=== PATIENT | male | born 1945 | race Caucasian/White ===

== ENCOUNTER 2016-07-24 20:07 | Inpatient (IN) | payer OTHER ==
[~2016-07-24] VITALS: Ht 175.3 cm; Wt 106.1 kg
--- NOTE | 2016-07-24 20:24 | NUR ---
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 NOW PT HAS L FLANK PAIN 10/10 AND ABDOMINAL DISTENTION, PT STATES "EVERYTHING FEELS SWOLLEN INSIDE". VSS. PT TO ROOM1 BY WHEELCHAIR.
--- NOTE | 2016-07-24 20:34 | NUR ---
URINE TRIO SENT
--- NOTE | 2016-07-24 20:47 | ED GI/GU/ABDOMINAL COMPLAINT ---
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 NOW PT HAS L FLANK PAIN 10/10 AND ABDOMINAL DISTENTION, PT STATES "EVERYTHING FEELS SWOLLEN INSIDE". VSS. PT TO ROOM1 BY WHEELCHAIR. Triage Nurses Notes Reviewed? yes Onset: Abrupt Duration: minute(s): (1 pm today), hour(s): Timing: single episode today Quality/Severity: moderate, sharpness, severe Location: left flank, left upper quadrant Activities at Onset: none Prior Abdominal Problems: none No Modifying Factors: none HPI: 70-year-old male comes into emergency room for further evaluation of left-sided back pain and left upper abdominal pain. Patient had lithotripsy done this afternoon. Pain is gone significantly worse. Due to the amount of pain that the patient is in his history is somewhat limited. Patient is on a 325 aspirin. Patient reports severe sharp pain. Difficulty moving at all. Denies any other associated symptoms. (ANN CONNOLLY) Vital Signs & Intake/Output Vital Signs & Intake/Output Vital Signs Date Time Temp Pulse Resp B/P Pulse O2 O2 Flow FiO2 Ox Delivery Rate 07/244 64 18 107/63 98 07/241 63 20 103/75 96 07/24 2018 96.0 63 18 117/67 94 Room Air Past History Travel History Traveled to [place] past 21 day No Medical History Any Pertinent Medical History? see below for history Cardiovascular: hypertension Renal: nephrolithiasis Pneumonia Vaccine: 06/10/10 Influenza Vaccine: 03/10/12 Surgical History Surgical History: lithotripsy , heart valve replacement, hernia repair x2 Psychosocial History Who do you live with Spouse Services at Home None What is your primary language Occitan Tobacco Use: Never used Family History Hx Contributory? No (ANN CONNOLLY) Review of Systems Review of Systems Constitutional: Reports: see HPI. EENTM: Reports: no symptoms. Respiratory: Reports: no symptoms. Cardiovascular: Reports: no symptoms. GI: Reports: see HPI. Genitourinary: Reports: see HPI. Musculoskeletal: Reports: see HPI. Skin: Reports: no symptoms. Neurological/Psychological: Reports: no symptoms. Hematologic/Endocrine: Reports: no symptoms. Immunologic/Allergic: Reports: no symptoms. All Other Systems: Reviewed and Negative (ANN CONNOLLY) Physical Exam Physical Exam General Appearance: well developed/nourished, alert, awake, anxious, moderate distress Head: atraumatic, normal appearance Eyes: Bilateral: normal appearance, EOMI. Ears, Nose, Throat, Mouth: hearing grossly normal, moist mucous membrane Neck: normal inspection, full range of motion Respiratory: normal breath sounds, no respiratory distress Cardiovascular: regular rate/rhythm Gastrointestinal: guarding, tenderness Back: CVA tenderness (L) Extremities: normal range of motion Neurologic/Psych: awake, alert, oriented x 3, normal gait Core Measures ACS in differential dx? No Severe Sepsis Present: No Septic Shock Present: No (ANN CONNOLLY) Progress Differential Diagnosis: appendicitis, biliary colic, bowel obstruction, cholecystitis, diverticulitis, pyelonephritis, ureterolithiasis, bleeding internally Diagnostic Imaging: Viewed by Me: CT Scan. Discussed w/RAD: CT Scan. Radiology Impression: SERVICE DATE: 07/24/16 EXAM TYPE: CAT - CT ABD & PELVIS W IV CONTRAST; CTA CHEST-AORTIC DISSECTION EXAMINATION: CTA CHEST AND CT ABDOMEN AND PELVIS WITHOUT CONTRAST CLINICAL INFORMATION: Severe left-sided chest and abdominal pain. History of recent lithotripsy. COMPARISON: Renal ultrasound from 07/23/2016. Abdominal and pelvic CT from 08/09/2012. TECHNIQUE: Contiguous axial thin section helical images of the chest, abdomen and pelvis were performed following the administration of oral contrast and 120 mL of intravenous Optiray 300. The data set was reformatted in the coronal and sagittal planes and reviewed on an independent workstation. DLP: 1953 mGy-cm. FINDINGS: The heart is of normal size. An aortic valvular prosthesis is present. There is no pericardial effusion. Intact midline sternal wires are present. There is neither mediastinal, hilar nor axillary lymphadenopathy. There are no chest wall masses. The great vessels are unremarkable there is no aortic dissection. Review of lung windows demonstrates that there are neither pleural effusions nor pneumothoraces. There are no consolidations. There is streaky bibasilar atelectasis. Within the right upper lobe on image 97/458, there is a 3 mm benign calcified granuloma. The liver is of normal size and attenuation without focal lesions. There is mild intrahepatic biliary ductal dilation. The common duct measures 9 mm. Patient is status post cholecystectomy. Surgical clips are identified. The spleen, pancreas, adrenal glands are unremarkable. Both kidneys are of normal size and attenuation without hydronephrosis. There is no discernible nephrolithiasis Following the administration of IV contrast, prompt symmetric nephrograms are displayed. There is a 6.9 cm cyst within the lower pole the right kidney. Within the interpole region of the left kidney, there is a 3.3 cm cyst. There is a large left renal subcapsular hematoma. There are curvilinear areas of high attenuation within this collection which could correspond to extravasation or vessels. There is extension of the hemorrhage into the retroperitoneum. There is neither mesenteric nor retroperitoneal lymphadenopathy. Normal unopacified loops of small and large bowel are identified. There is no pelvic free fluid. The urinary bladder is unremarkable. There is neither pelvic nor inguinal lymphadenopathy. Bone windows: Neither sclerotic nor lytic bone lesions are identified. There is multilevel disc height loss within the lumbar spine. IMPRESSION: Large left renal subcapsular hematoma with extension of hemorrhage into the retroperitoneum. In addition, there are curvilinear areas of high attenuation within the subcapsular region which could correspond to active extravasation or stretched vessels. Recommendation is for consultation with Interventional Radiology or Surgery to discuss proper management for this patient. The aforementioned was discussed with Dr. Armendariz at 2213 hours. DICTATED BY: CLAYTON FLORES MD DATE/TIME DICTATED:07/24/162199 BRAKE TESTER:REECE DATE/TIME TRANSCRIBED:07/24/162199 Initial ED EKG: normal intervals, normal p-waves, normal sinus rhythm, rate (65) Comments: 07/24/2016 10:21:54 PM Surgery was consult immediately. Dr. OATES suggested calling urology. I explained to him the CAT scan findings as well as the patient being borderline hypotensive. Waiting on urology call back. 07/24/2016 10:52:[address] Pavon. Patient will need to be admitted to ICU. Serial vital checks. Serial CBCs. Repeat imaging. Patient is to be bed rest only and not allowed to be walking around at all. Dr. Pavon reports that there is nothing surgical intervention-nova that he can do at this time and patient will have to be observed. Aggressive IV pain management. (ANN CONNOLLY) Plan of Care: Orders Procedure Date/time Status Admit to inpatient 07/24 2252 Active TYPE & SCREEN (NOT X-MATCH) 07/24 2152 Complete TROPONIN LEVEL 07/24 2045 Complete COMPREHENSIVE METABOLIC PANEL 07/24 2045 Complete CBC WITHOUT DIFFERENTIAL 07/24 2045 Complete EKG 07/24 2045 Active URINALYSIS 07/24 2033 Complete Laboratory Tests 07/24/162101: Anion Gap 10, Estimated GFR > 60, BUN/Creatinine Ratio 23.8, Glucose 185 H, Calcium 8.8, Total Bilirubin 0.8, AST 26, ALT 41, Alkaline Phosphatase 84, Troponin I 0.02, Total Protein 6.5, Albumin 3.8, Globulin 2.7, Albumin/Globulin Ratio 1.4, CBC w Diff NO MAN DIFF REQ, RBC 5.33, MCV 86.7, MCH 29.5, RDW 14.0, MPV 7.3 L, Gran % 52.3, Lymphocytes % 35.9, Monocytes % 7.8, Eosinophils % 3.2, Basophils % 0.8, Absolute Granulocytes 6.2, Absolute Lymphocytes 4.2 H, Absolute Monocytes 0.9 H, Absolute Eosinophils 0.4, Absolute Basophils 0.1, PUBS MCHC 34.1 07/24/162034: Urine Color YEL, Urine Clarity CLEAR, Urine pH 6.5, Ur Specific [place] 1.020, Urine Protein 30 H, Urine Ketones NEG, Urine Nitrite NEG, Urine Bilirubin NEG, Urine Urobilinogen 0.2, Ur Leukocyte Esterase NEG, Ur Microscopic SEDIMENT EXAMINED, Urine RBC 10-15 H, Urine WBC RARE, Ur Epithelial Cells RARE, Urine Mucus RARE, Urine Hemoglobin TRACE-INTACT H, Urine Glucose NEG Departure Departure Disposition: STILL A PATIENT Condition: Stable Clinical Impression Primary Impression: Traumatic perinephric hematoma of left kidney Referrals: ABDULLAHI MUNOZ MD (PCP/Family) Departure Forms: Customer Survey General Discharge Information (ANN CONNOLLY) PA/POPULATION HEALTH COACH Co-Sign Statement Statement: ED Attending supervision documentation- [X] I saw and evaluated the patient. I have also reviewed all the pertinent lab results and diagnostic results. I agree with the findings and the plan of care as documented in the PA's/POPULATION HEALTH COACH's documentation. [] I have reviewed the ED Record and agree with the PA's/POPULATION HEALTH COACH's documentation. [] Additions or exceptions (if any) to the PAs/POPULATION HEALTH COACH's note and plan are summarized below: [] (JONNY GARCIA,BOB Mena) Critical Care Note Critical Care Note Critical Care Time: 30-74 min (ANN CONNOLLY)
[2016-07-24 21:08] LABS: ABSOLUTE BASOPHIL COUNT 0.1 /CUMM (0.0-0.2); ABSOLUTE EOSINOPHIL COUNT 0.4 /CUMM (0.0-0.7); ABSOLUTE GRANULOCYTE CT 6.2 /CUMM (1.4-6.5); ABSOLUTE MONOCYTE COUNT 0.9 /CUMM (0.10-0.60); BASOPHIL % 0.8 % (0.0-2.0); EOSINOPHIL % 3.2 % (0-5); GRANULOCYTE % 52.3 % (42.2-75.2); HEMATOCRIT 46.2 % (42-52); MEAN CORPUSCULAR HGB 29.5 PG (27.0-31.0); MEAN CORPUSCULAR HGB CONC 34.1 G/DL (33.0-37.0); MEAN CORPUSCULAR VOLUME 86.7 FL (80.0-94.0); MEAN PLATELET VOLUME 7.3 FL (7.4-10.4); PLATELET COUNT 208 /CUMM (130-400); RED BLOOD CELL CT 5.33 /CUMM (4.70-6.10); WHITE BLOOD CELL COUNT 11.8 /CUMM (4.8-10.8)
[2016-07-24 21:09] LABS: ABSOLUTE LYMPH COUNT 4.2 /CUMM (1.2-3.4)
--- NOTE | 2016-07-24 21:14 | NUR ---
PT C/O 10/10 PAIN AND NAUSEA. PT MEDICATED WITH ZOFRAN AND HYDROMORPHONE PER ORDER
--- NOTE | 2016-07-24 21:21 | NUR ---
PT TO CT SCAN
--- NOTE | 2016-07-24 21:55 | NUR ---
PT BACK FROM CT. TOLERTED WELL
--- NOTE | 2016-07-24 22:03 | NUR ---
[facility] TOP SENT
--- NOTE | 2016-07-24 22:12 | NUR ---
PT STILL C/O 03/19. PT MEDICATED WITH HYDROMORPHONE PER ORDER
--- NOTE | 2016-07-24 22:17 | CT SCAN REPORT ---
EXAMINATION: CTA CHEST AND CT ABDOMEN AND PELVIS WITHOUT CONTRAST CLINICAL INFORMATION: Severe left-sided chest and abdominal pain. History of recent lithotripsy. COMPARISON: Renal ultrasound from 07/23/2016. Abdominal and pelvic CT from 08/09/2012. TECHNIQUE: Contiguous axial thin section helical images of the chest, abdomen and pelvis were performed following the administration of oral contrast and 120 mL of intravenous Optiray 300. The data set was reformatted in the coronal and sagittal planes and reviewed on an independent workstation. DLP: 1953 mGy-cm. FINDINGS: The heart is of normal size. An aortic valvular prosthesis is present. There is no pericardial effusion. Intact midline sternal wires are present. There is neither mediastinal, hilar nor axillary lymphadenopathy. There are no chest wall masses. The great vessels are unremarkable there is no aortic dissection. Review of lung windows demonstrates that there are neither pleural effusions nor pneumothoraces. There are no consolidations. There is streaky bibasilar atelectasis. Within the right upper lobe on image 97/458, there is a 3 mm benign calcified granuloma. The liver is of normal size and attenuation without focal lesions. There is mild intrahepatic biliary ductal dilation. The common duct measures 9 mm. Patient is status post cholecystectomy. Surgical clips are identified. The spleen, pancreas, adrenal glands are unremarkable. Both kidneys are of normal size and attenuation without hydronephrosis. There is no discernible nephrolithiasis Following the administration of IV contrast, prompt symmetric nephrograms are displayed. There is a 6.9 cm cyst within the lower pole the right kidney. Within the interpole region of the left kidney, there is a 3.3 cm cyst. There is a large left renal subcapsular hematoma. There are curvilinear areas of high attenuation within this collection which could correspond to extravasation or vessels. There is extension of the hemorrhage into the retroperitoneum. There is neither mesenteric nor retroperitoneal lymphadenopathy. Normal unopacified loops of small and large bowel are identified. There is no pelvic free fluid. The urinary bladder is unremarkable. There is neither pelvic nor inguinal lymphadenopathy. Bone windows: Neither sclerotic nor lytic bone lesions are identified. There is multilevel disc height loss within the lumbar spine. IMPRESSION: Large left renal subcapsular hematoma with extension of hemorrhage into the retroperitoneum. In addition, there are curvilinear areas of high attenuation within the subcapsular region which could correspond to active extravasation or stretched vessels. Recommendation is for consultation with Interventional Radiology or Surgery to discuss proper management for this patient. The aforementioned was discussed with Dr. Armendariz at 2213 hours.
--- NOTE | 2016-07-24 22:40 | NUR ---
PT STILL UNCOMFORTBALE WITH PAIN. RESP UNLABORED. NSR ON THE MONITOR.
--- NOTE | 2016-07-24 22:52 | NUR ---
PT STILL C/O PAIN. PT MEDICATED WITH HYDROMORPHONE PER ORDER. PT A/O X4. RESP UNLABORED. WILL CONTINUE TO MONITOR
[2016-07-24] MEDS ORDERED: NAMENDA XR28 M1 PO (22:56)
[2016-07-24] MEDS ORDERED: VITAMIN D250000 UNIT PO (22:57)
[2016-07-24] MEDS ORDERED: COLACE100 M1 PO (22:57)
[2016-07-24] MEDS ORDERED: OMNIPRED10 ML OPH (22:58)
[2016-07-24] MEDS ORDERED: ENSURE LIQUID237 ML PO (22:59)
[2016-07-24 23:35] LABS: PTT 25 SEC (25-37)
[2016-07-25] VITALS (11 sets, daily range): BP systolic 96–142; BP diastolic 50–78
--- NOTE | 2016-07-25 00:28 | Cons- Medical ---
FIDENCIO ROGERS 07/25/16 0007: General Information and HPI Consulting Request Date of Consult: 07/25/16 Requested By: JAYDA CORNEJO MD Reason for Consult: HTN, mitral valve replacement, HLD Source of Information: patient Exam Limitations: physical impairment (pain) History of Present Illness: Mr. Soriano is a 70 year old gentleman w a PMH of HTN, HLD, HCV, GERD, dyspepsia and mitral valve replacement in May 2014 with a bovine valve. He also has a history of multiple previous nephrolithiasis status post ESWL, most recently 07/24/2016. He presented to the emergency department with complaints of abdominal pain/flank pain. He states that his procedure went well today, he went home and drink some liquids, and had only mild distress. He states that his pain progressed throughout the evening, and was refractory to Percocet. He presented to the hospital after his pain became so significant he could move. He states his pain was 10 out of 10 in severity, and he localized it diffusely over the left side of his abdomen and flank. He states that it radiated upwards substernally. He states that he could feel pressure pushing up on his diaphragm when he took a deep breath. He also complained of some nausea associated with the pain. He denied any palpitations, lightheadedness, dizziness, shortness of breath, visual or hearing disturbances. He denied any right-sided abdominal/ flank pain. He denied any dysuria or hematuria In the emergency department he was found to have a large left renal subcapsular hematoma with extension retroperitoneally. Vitals on admission were stable. Labs were significant for H/H 15.7/46.2. BEP, sodium 136, potassium 3.3, B1/ creatinine 19/0.8. Showed RBCs. At the time of interview, he was in mild to moderate distress however was able to communicate well. He states he is on 13 medications at home however he cannot remember any of them. He states he recently changed his pharmacy yesterday to [facility] and was previously getting his medications from [facility]. I did speak with the pharmacist at [facility] and [place] who stated that his last prescription was filled and october/2015 and it was for Augmentin, and previously in June 2015 for tramadol. Allergies/Medications Allergies: Coded Allergies: NO KNOWN ALLERGIES (07/24/16) Home Med List: Docusate Sodium (Colace) 100 MG CAPSULE 1 CAP PO DAILY STOOL SOFTENER ( Reported) Ergocalciferol (Vitamin D2) (Vitamin D2) 50,000 UNIT CAPSULE 1 CAP PO QW SUPPLEMENT (Reported) Lactose-Reduced Food (Ensure Liquid) 237 ML LIQUID 1 CAN PO DAILY PRN NUTRITIONAL SUPPLEMENT (Reported) Memantine HCl (Namenda XR) 28 MG CAP.SPR.24 1 CAP PO DAILY MEMORY (Reported) Prednisolone Acetate (Omnipred) 1 % DROPS.SUSP 1 GTT OPH DAILY EYE(S) ( Reported) Current Medications: Current Medications Sig/Geri Start time Last Medication Dose Route Stop Time Status Admin Ceftriaxone Sodium 1,000 MG ONCE ONE 07/24 234 DC IV 07/24 2345 Docusate Sodium 100 MG DAILY NEEDED PRN 07/24 234 AC PO Hydromorphone HCl 0 .STK-MED ONE 07/24 2249 DC .ROUTE Hydromorphone HCl 1 MG ONCE ONE 07/24 2245 DC 07/24 IV 07/24 224 2252 Hydromorphone HCl 0 .STK-MED ONE 07/24 221 DC .ROUTE Hydromorphone HCl 1 MG ONCE ONE 07/24 2200 DC 07/24 IV 07/24 2200 221 Hydromorphone HCl 0 .STK-MED ONE 07/24 2105 DC .ROUTE Hydromorphone HCl 1 MG ONCE ONE 07/24 2100 DC 07/24 IV 07/24 210 2110 Morphine Sulfate 100 MG Q24H PRN 07/24 2345 AC Sodium Chloride 48 ML IV Ondansetron HCl 4 MG Q8P PRN 07/24 2345 AC IV Ondansetron HCl 0 .STK-MED ONE 07/24 2106 DC .ROUTE Ondansetron HCl 4 MG ONCE ONE 07/24 2100 DC 07/24 IV 07/24 2101 2110 Sodium Chloride 1,000 ML .Q10H 07/24 2345 AC IV Sodium Chloride 1,000 ML BOLUS ONE 07/24 2300 AC 07/24 IV 07/25 0539 2303 Sodium Chloride 1,000 ML BOLUS ONE 07/24 2200 DC 07/24 IV 07/24 2259 2155 Review of Systems Review of Systems Constitutional: Reports: see HPI. Past History Travel History Traveled to [place] past 21 day No Medical History Cardiovascular: hypertension Renal: nephrolithiasis Surgical History Surgical History: lithotripsy heart valve replacement hernia repair x2 Psychosocial History Services at Home: None Exam & Diagnostic Data Last 24 Hrs of Vital Signs/I&O Vital Signs Date Time Temp Pulse Resp B/P Pulse O2 O2 Flow FiO2 Ox Delivery Rate 07/244 97.9 66 18 104/55 95 Non 4.0L ReBreather 07/24 2214 64 18 107/63 98 07/24 2111 63 20 103/75 96 07/24 2017 96.0 63 18 117/67 94 Room Air Intake & Output 07/25 0800 07/25 0000 07/24 1600 Intake Total 1200 Output Total Balance 1200 Intake, IV 1200 Patient 103.419 kg Weight Physical Exam General Appearance: well developed/nourished, alert, awake, mild distress Head: atraumatic, normal appearance Eyes: Bilateral: other (miosis). Ears, Nose, Throat: normal ENT inspection Respiratory: normal breath sounds, chest non-tender, no respiratory distress Cardiovascular: s1 s2 w 3/6 systolic murmur with faint radiation to the L axilla and carotids. No heave noted. No rubs/gallops. regular rate/rhythm Gastrointestinal: normal bowel sounds, soft, diffuse LUQ/LLQ tenderness to light palpation. Left CVA tenderness to light palpation. No bruising noted. Extremities: normal inspection Neurologic/Psych: awake, alert, oriented x 3 Last 24 Hrs of Labs/Gregory: Laboratory Tests 07/24/16 2200: PT 13.0 H, INR 1.24 H, APTT 25 07/24/16 2102: Anion Gap 10, Estimated GFR > 60, BUN/Creatinine Ratio 23.8, Glucose 185 H, Calcium 8.8, Total Bilirubin 0.8, AST 26, ALT 41, Alkaline Phosphatase 84, Troponin I 0.02, Total Protein 6.5, Albumin 3.8, Globulin 2.7, Albumin/Globulin Ratio 1.4, CBC w Diff NO MAN DIFF REQ, RBC 5.33, MCV 86.7, MCH 29.5, RDW 14.0, MPV 7.3 L, Gran % 52.3, Lymphocytes % 35.9, Monocytes % 7.8, Eosinophils % 3.2, Basophils % 0.8, Absolute Granulocytes 6.2, Absolute Lymphocytes 4.2 H, Absolute Monocytes 0.9 H, Absolute Eosinophils 0.4, Absolute Basophils 0.1, PUBS MCHC 34.1 07/24/162034: Urine Color YEL, Urine Clarity CLEAR, Urine pH 6.5, Ur Specific [place] 1.020, Urine Protein 30 H, Urine Ketones NEG, Urine Nitrite NEG, Urine Bilirubin NEG, Urine Urobilinogen 0.2, Ur Leukocyte Esterase NEG, Ur Microscopic SEDIMENT EXAMINED, Urine RBC 10-15 H, Urine WBC RARE, Ur Epithelial Cells RARE, Urine Mucus RARE, Urine Hemoglobin TRACE-INTACT H, Urine Glucose NEG Diagnostic Data Other Results SERVICE DATE: 07/24/16-2053 EXAM TYPE: CAT - CT ABD & PELVIS W IV CONTRAST; CTA CHEST-AORTIC DISSECTION EXAMINATION: CTA CHEST AND CT ABDOMEN AND PELVIS WITHOUT CONTRAST CLINICAL INFORMATION: Severe left-sided chest and abdominal pain. History of recent lithotripsy. COMPARISON: Renal ultrasound from 07/23/2016. Abdominal and pelvic CT from 08/09/2012. TECHNIQUE: Contiguous axial thin section helical images of the chest, abdomen and pelvis were performed following the administration of oral contrast and 120 mL of intravenous Optiray 300. The data set was reformatted in the coronal and sagittal planes and reviewed on an independent workstation. DLP: 1953 mGy-cm. FINDINGS: The heart is of normal size. An aortic valvular prosthesis is present. There is no pericardial effusion. Intact midline sternal wires are present. There is neither mediastinal, hilar nor axillary lymphadenopathy. There are no chest wall masses. The great vessels are unremarkable there is no aortic dissection. Review of lung windows demonstrates that there are neither pleural effusions nor pneumothoraces. There are no consolidations. There is streaky bibasilar atelectasis. Within the right upper lobe on image 97/458, there is a 3 mm benign calcified granuloma. The liver is of normal size and attenuation without focal lesions. There is mild intrahepatic biliary ductal dilation. The common duct measures 9 mm. Patient is status post cholecystectomy. Surgical clips are identified. The spleen, pancreas, adrenal glands are unremarkable. Both kidneys are of normal size and attenuation without hydronephrosis. There is no discernible nephrolithiasis Following the administration of IV contrast, prompt symmetric nephrograms are displayed. There is a 6.9 cm cyst within the lower pole the right kidney. Within the interpole region of the left kidney, there is a 3.3 cm cyst. There is a large left renal subcapsular hematoma. There are curvilinear areas of high attenuation within this collection which could correspond to extravasation or vessels. There is extension of the hemorrhage into the retroperitoneum. There is neither mesenteric nor retroperitoneal lymphadenopathy. Normal unopacified loops of small and large bowel are identified. There is no pelvic free fluid. The urinary bladder is unremarkable. There is neither pelvic nor inguinal lymphadenopathy. Bone windows: Neither sclerotic nor lytic bone lesions are identified. There is multilevel disc height loss within the lumbar spine. IMPRESSION: Large left renal subcapsular hematoma with extension of hemorrhage into the retroperitoneum. In addition, there are curvilinear areas of high attenuation within the subcapsular region which could correspond to active extravasation or stretched vessels. Recommendation is for consultation with Interventional Radiology or Surgery to discuss proper management for this patient. Assessment/Plan Assessment/Plan Mr. Soriano is a 70 year old gentleman w a PMH of HTN, HLD, HCV, GERD, dyspepsia and mitral valve replacement in May 2014 with a bovine valve. He also has a history of multiple previous nephrolithiasis status post ESWL, most recently 07/24/2016 who presented to the hospital with complaints of left abdominal/flank pain and found to have a large left renal subcapsular hematoma with extension retroperitoneally. Problem List/Assessment and Plan L large renal hematoma with retroperitoneal extension * Surgery on board * Consider CBC q4h for the next 8-12 hours to monitor if he is actively bleeding. * NSAIDs or antiplatelet medication/anticoagulation. * Bedrest and nothing by mouth for now. * Consider repeating a CT of the abdomen tomorrow morning to assess for further extension of his bleed. * Please consider keeping his blood pressure on the lower end (around 100 systolically), as to decrease his blood loss if he is currently bleeding. * Consider morphine for pain, 1-2 mg IV [id number] as dilaudid did make him quite sedated. * Consider zofran for nausea q4 PRN HTN, HLD, MV replacement, GERD/dyspepsia * Medication list is unknown. The patients friend who was at the bedside did say she would return home and get the list and call the ICU tonight. Attempts to call his pharmacy were made without success in getting his meds. * In the am, please try again, and try reaching out to Dr. Rehman/Dr. Sellers office as the patient does say he sent updated med lists. NPO FULL CODE ALPS for dvt ppx Consult Acknowledgment - Thank you for your consult request. JAYDA CORNEJO 07/25/16 0248: Assessment/Plan Consult Acknowledgment - Thank you for your consult request. Attending MD Review Statement Attending Statement Attending MD Statement: examined this patient, discuss w/resident/PA/SENIOR ELECTRICAL DESIGNER, agreed w/resident/PA/SENIOR ELECTRICAL DESIGNER, reviewed EMR data (avail), reviewed images, amended to note Attending Assessment/Plan: I was with resident at the time of patient interview. On exam: Afebrile, blood pressure 103/75, saturating well on 4 L, patient had an episode of desaturation to 88% in ER so was started on nasal cannula, responded appropriately. Heart rate in 60-80. o/E : Patient is anxious and moderate distress in pain. A O 3, mucosa dry, neck supple, no JVD, no lymphadenopathy, pale, CVS: S1-S2, systolic murmur in aortic area, radiating to carotid, systolic murmur in mitral area. RS: Clear injury basis. Abdomen is distended, soft, tenderness left flank and CVA, no skin discoloration. No focal neurological deficits. Labs and images reviewed as above A and P Patient has left renal subcapsular hematoma with extension of hemorrhage into the retroperitoneum with suspected active extravasation or stretched vessels. I personally spoke to Dr. Pavon, he suggests conservative management and asked for medical management while in ICU. Even though patient's blood pressure in low normal side, surgeon wants to keep around that range of 100s systolic. Patient does not have significant tachycardia as compared to his soft blood pressure probably patient on beta imer which could mask a reactive tachycardia. His home medication list could not be confirmed, but should not receive any NSAIDs, anticoagulation. Strict bedrest, vitals every hour, CBC every 4 hours. Informed critical care. He will benefit from outpatient echocardiogram for evaluation of suspected aortic stenosis.
--- NOTE | 2016-07-25 00:42 | NUR ---
PT APPEARS TO BE RESTING COMFORTBALY. RESP UNLABORED. NSR ON THE MONITOR. NO APPARENT DISTRESS
--- NOTE | 2016-07-25 01:00 | NUR ---
PT UP FROM ER TRANSFERED TO BED. STRICT BEDREST EXPLAINED. PT PLACED ON MONITOR. VSS. (SEE FLOW SHEET) PT NSR HEART RATE IN THE 80S. PT ON 4L NC SATS 94-95%. PT LUNGS CLEAR TO AUSCULTATION. PT HAS SEVERE LEFT ABD PAIN. DILAUDID x1 TO BE GIVEN AND MORPHINE RADIAL DRILL PRESS SET UP OPERATOR TO BE STARTED WHEN ARRIVES TO FLOOR. CALL LIGHT AND SAFETY EXPLAINED. PLAN OF CARE AND FREQUENT LABS EXPLAINED. WILL CONITNUE TO MONITOR
[2016-07-25 03:25] LABS: ABSOLUTE BASOPHIL COUNT 0 /CUMM (0.0-0.2); ABSOLUTE EOSINOPHIL COUNT 0 /CUMM (0.0-0.7); ABSOLUTE GRANULOCYTE CT 13.1 /CUMM (1.4-6.5); ABSOLUTE LYMPH COUNT 0.9 /CUMM (1.2-3.4); ABSOLUTE MONOCYTE COUNT 0.6 /CUMM (0.10-0.60); BASOPHIL % 0 % (0.0-2.0); EOSINOPHIL % 0 % (0-5); MEAN CORPUSCULAR HGB 29.7 PG (27.0-31.0); MEAN CORPUSCULAR HGB CONC 34.2 G/DL (33.0-37.0); MEAN CORPUSCULAR VOLUME 86.9 FL (80.0-94.0); MEAN PLATELET VOLUME 7.3 FL (7.4-10.4); PLATELET COUNT 191 /CUMM (130-400); RBC DISTRIBUTION WIDTH 13.9 % (11.5-14.5); RED BLOOD CELL CT 4.65 /CUMM (4.70-6.10); WHITE BLOOD CELL COUNT 14.6 /CUMM (4.8-10.8)
[2016-07-25 03:30] LABS: GRANULOCYTE % 89.8 % (42.2-75.2); HEMATOCRIT 40.4 % (42-52)
--- NOTE | 2016-07-25 04:30 | NUR ---
H/H NOW 13.8/40.4. YASMINE YU NOTIFIED AND NEXT LAB TO BE DRAWN IN 6 HRS. WILL CONTINUE TO MONITOR.
--- NOTE | 2016-07-25 07:25 | NUR ---
PT C/O CHEST PAIN TEARING IN NATURE. BOTH YASMINE BOATENG AND DR. SCOTT NOTIFIED. EKG AND TROPONIN DONE ORDERED. AWAITING FURTHER ORDERS
--- NOTE | 2016-07-25 08:00 | Cons- CRCU ---
BIANKA YAO MD 07/25/16 0800: General Information and HPI Consulting Request Date of Consult: 07/25/16 Requested By: Dr. Pavon Reason for Consult: Crirical care management Source of Information: patient Exam Limitations: no limitations History of Present Illness: 70 year old gentleman with a PMH of HTN, HLD, HCV, GERD, dyspepsia and mitral valve replacement in May 2014 with a bovine valve. He also has a history of multiple previous nephrolithiasis status post ESWL, most recently 07/24/[address] Pavon. He presented to the ED yesterday (07/24/16) with complaints of abdominal pain/ flank pain that started a little after he went home after his procedure, progressiveluy got worse, and was ot even getting better with Percocet. At that time his pain was 10/10, left flabk, radiation upwards to the sternum, aggravated with movement and deep breathing. The patient had a CT Abd/Pelvis that showed large left renal subcapsular hematoma with extension of hemorrhage into the retroperitoneum. In addition, there are curvilinear areas of high attenuation within the subcapsular region which could correspond to active extravasation or stretched vessels. He was admitted to the ICU for further management. Over night he has been stable, the pain has deacreased with pain meds to 4/10. He complained of chest pain early in the morning, with an EKG that did not show any ST-T wave changes. trops x 2 negative. Allergies/Medications Allergies: Coded Allergies: NO KNOWN ALLERGIES (07/24/16) Home Med List: Allopurinol 300 MG TABLET 300 MG PO D GOUT (Reported) Alprostadil (Caverject) 20 MCG KIT 20 MCG .ROUTE NEEDED PRN ERECTILE DYSFUNCTION (Reported) INTRACAVERNOSAL Amlodipine Besylate (Norvasc) 10 MG TABLET 10 MG PO HTN HTN (Reported) Reason to Stop at ADM: BP within control, will restart if it goes >120-130 Aspirin (Aspirin*) 325 MG TABLET 325 MG PO DAILY BLOOD THINNER (Reported) Reason to Stop at ADM: renal hematoma Chlorthalidone 25 MG TABLET 25 MG PO QAM CARDIAC (Reported) Docusate Sodium (Colace) 100 MG CAPSULE 1 CAP PO DAILY STOOL SOFTENER ( Reported) Ezetimibe (Zetia) 10 MG TABLET 10 MG PO D CHOLESTEROL (Reported) Ferrous Sulfate 325 MG (65 MG IRON) TABLET 325 MG PO BID ANEMIA (Reported) Fluticasone Propionate 50 MCG/ACTUATION SPRAY.SUSP 2 SPRAY NASB DAILY BREATHING (Reported) Lactose-Reduced Food (Ensure Liquid) 237 ML LIQUID 1 CAN PO DAILY PRN NUTRITIONAL SUPPLEMENT (Reported) Levothyroxine Sodium 137 MCG TABLET 137 MCG PO QAM HYPOTHYROIDISM (Reported) Losartan/Hydrochlorothiazide (Losartan-Hctz 50-12.5 MG Tab) 50 MG-12.5 MG TABLET 1 TAB PO DAILY BP (Reported) Memantine HCl (Namenda XR) 28 MG CAP.SPR.24 1 CAP PO DAILY MEMORY (Reported) Memantine HCl (Namenda XR) 28 MG CAP.SPR.24 1 CAP PO DAILY MEMORY (Reported) Metoprolol Tartrate 25 MG TABLET 1 TAB PO BID BP/HEART DISEASE (Reported) Omeprazole 40 MG CAPSULE.DR 40 MG PO D GERD (Reported) Oxycodone HCl/Acetaminophen (Percocet 5-325 MG Tablet) 5 MG-325 MG TABLET 1 TAB PO BID PRN PAIN (Reported) Reason to Stop at ADM: ON IV MORPHINE Prednisolone Acetate (Omnipred) 1 % DROPS.SUSP 1 GTT OPH DAILY EYE(S) ( Reported) Rosuvastatin Calcium (Crestor) 20 MG TABLET 20 MG PO D CHOLESTEROL (Reported) Sildenafil Citrate (Viagra) 100 MG TABLET 1 TAB PO DAILY NEEDED ERECTILE DYSFUNCTION (Reported) 1 hour before sexual activity Tamsulosin HCl (Flomax) 0.4 MG CAP.ER.24H 0.4 MG PO QPM BPH (Reported) Current Medications: Current Medications Sig/Geri Start time Last Medication Dose Route Stop Time Status Admin Ceftazidime 0 .STK-MED ONE 07/25 0033 DC .ROUTE Ceftriaxone Sodium 0 .STK-MED ONE 07/25 0034 DC .ROUTE Ceftriaxone Sodium 1,000 MG ONCE ONE 07/24 2345 DC 07/25 IV 07/24 2346 0035 Docusate Sodium 100 MG BID 07/25 1000 AC PO Docusate Sodium 100 MG DAILY NEEDED PRN 07/24 2344 DC PO Hydromorphone HCl 1 MG ONCE ONE 07/25 0130 DC 07/25 IV 07/25 130 0124 Hydromorphone HCl 0 .STK-MED ONE 07/249 DC .ROUTE Hydromorphone HCl 1 MG ONCE ONE 07/24 2245 DC 07/24 IV 07/24 2246 2252 Hydromorphone HCl 0 .STK-MED ONE 07/24 2210 DC .ROUTE Hydromorphone HCl 1 MG ONCE ONE 07/24 2200 DC 07/24 IV 07/24 Hydromorphone HCl 0 .STK-MED ONE 07/24 2105 DC .ROUTE Hydromorphone HCl 1 MG ONCE ONE 07/24 2100 DC 07/24 IV 07/24 2101 2110 Memantine 10 MG BID 07/25 1000 AC PO Morphine Sulfate 100 MG Q24H PRN 07/24 2345 AC 07/25 Sodium Chloride 48 ML IV 0200 Ondansetron HCl 4 MG Q8P PRN 07/24 2345 AC IV Ondansetron HCl 0 .STK-MED ONE 07/24 2105 DC .ROUTE Ondansetron HCl 4 MG ONCE ONE 07/24 2100 DC 07/24 IV 07/24 2100 2110 Sodium Chloride 1,000 ML .Q10H 07/24 2345 AC 07/25 IV 0708 Sodium Chloride 1,000 ML BOLUS ONE 07/24 2300 DC 07/24 IV 07/25 0539 2303 Sodium Chloride 1,000 ML BOLUS ONE 07/24 2200 DC 07/24 IV 07/24 2259 2155 Review of Systems Review of Systems Constitutional: Reports: see HPI. EENTM: Reports: no symptoms. Cardiovascular: Reports: chest pain (early in AM). Denies: orthopena, palpitations, peripheral edema, syncope. Respiratory: Reports: no symptoms. GI: Reports: abdominal pain. Genitourinary: Reports: see HPI. Musculoskeletal: Reports: no symptoms. Skin: Reports: no symptoms. Neurological/Psychological: Reports: no symptoms. Hematologic/Endocrine: Reports: no symptoms. Past History Travel History Traveled to [place] past 21 day No Medical History Blood Transfusion Hx: Yes Neurological: NONE EENT: NONE Cardiovascular: CAD, hypertension, hyperlipidemia, myocardial infarction, PVD Respiratory: NONE Gastrointestinal: GERD Hepatic: hepatitis C Renal: nephrolithiasis Musculoskeletal: gout, osteoarthritis Psychiatric: NONE Endocrine: hypothyroidism Blood Disorders: NONE Cancer(s): NONE MULTIMEDIA COORDINATOR/Reproductive: NONE Surgical History Surgical History: lithotripsy heart valve replacement hernia repair x2 CARDIAC STENTS x2 OLENA FEM POP BYPASS Psychosocial History Where Do You Live? Home Services at Home: None Smoking Status: Never Smoked Functional Ability ADLs Independent: dressing, eating, toileting, bathing. Ambulation: independent IADLs Independent: shopping, housework, finances, food prep, telephone, transportation , medication admin. Exam & Diagnostic Data Last 24 Hrs of Vital Signs/I&O Vital Signs Date Time Temp Pulse Resp B/P Pulse O2 O2 Flow FiO2 Ox Delivery Rate 07/25 0600 98.1 74 16 110/78 07/25 0439 93 Nasal 4.0L Cannula 07/25 0400 98.1 78 12 108/56 07/25 0200 97.5 80 12 96/53 07/25 0100 94 Nasal 4.0L Cannula 07/25 0100 97.5 82 20 114/60 94 Nasal 4.0L Cannula 07/25 0054 98.2 79 18 118/79 96 Nasal 4.0L Cannula 07/24 2351 97.7 79 18 115/75 96 Nasal 4.0L Cannula 07/24 2254 97.9 66 18 104/55 95 Non 4.0L ReBreather 07/24 2214 64 18 107/63 98 07/24 2111 63 20 103/75 96 07/24 2018 96.0 63 18 117/67 94 Room Air Intake & Output 07/25 1600 07/25 0800 07/25 0000 Intake Total 667 1200 Output Total 300 Balance 367 1200 Intake, IV 467 1200 Intake, Oral 200 Output, Urine 300 Patient 235 lb 228 lb Weight Physical Exam General Appearance: well developed/nourished, no apparent distress, alert, awake , comfortable, in pain when moves Head: atraumatic, normal appearance Eyes: Bilateral: normal appearance. Ears, Nose, Throat: normal pharynx, normal ENT inspection Neck: normal inspection, supple Respiratory: normal breath sounds, chest non-tender, no respiratory distress, lungs clear Cardiovascular: regular rate/rhythm, edema, 2-3/6 systolic murmur, best heard at the mitral region Peripheral Pulses: 4+ radial (R), 4+ radial (L), 4+ dorsalis pedis (R), 4+ dorsalis pedis (L) Gastrointestinal: normal bowel sounds, soft, tenderness in the LLQ, no CVA tenderness, no apparet visible bruising, superficial hematoma, on the skin Extremities: normal inspection, normal capillary refill, normal range of motion, no edema Neurologic/Psych: no motor/sensory deficits, awake, alert, oriented x 3 Cranial Nerves: normal hearing, normal speech, PERRL Skin: intact, normal color Last 48 Hrs of Labs/Gregory: Laboratory Tests 07/25/16 0700: Troponin I Pending 07/25/16 0300: Anion Gap 11, Estimated GFR > 60, BUN/Creatinine Ratio 21.0, CBC w Diff NO MAN DIFF REQ, RBC 4.65 L, MCV 86.9, MCH 29.7, RDW 13.9, MPV 7.3 L, Gran % 89.8 H, Lymphocytes % 6.0 L, Monocytes % 4.2, Eosinophils % 0, Basophils % 0 L, Absolute Granulocytes 13.1 H, Absolute Lymphocytes 0.9 L, Absolute Monocytes 0.6, Absolute Eosinophils 0, Absolute Basophils 0, PUBS MCHC 34.2 07/24/16 2200: PT 13.0 H, INR 1.24 H, APTT 25 07/24/16 2102: Anion Gap 10, Estimated GFR > 60, BUN/Creatinine Ratio 23.8, Glucose 185 H, Calcium 8.8, Total Bilirubin 0.8, AST 26, ALT 41, Alkaline Phosphatase 84, Troponin I 0.02, Total Protein 6.5, Albumin 3.8, Globulin 2.7, Albumin/Globulin Ratio 1.4, CBC w Diff NO MAN DIFF REQ, RBC 5.33, MCV 86.7, MCH 29.5, RDW 14.0, MPV 7.3 L, Gran % 52.3, Lymphocytes % 35.9, Monocytes % 7.8, Eosinophils % 3.2, Basophils % 0.8, Absolute Granulocytes 6.2, Absolute Lymphocytes 4.2 H, Absolute Monocytes 0.9 H, Absolute Eosinophils 0.4, Absolute Basophils 0.1, PUBS MCHC 34.1 07/24/162034: Urine Color YEL, Urine Clarity CLEAR, Urine pH 6.5, Ur Specific Marion 1.020, Urine Protein 30 H, Urine Ketones NEG, Urine Nitrite NEG, Urine Bilirubin NEG, Urine Urobilinogen 0.2, Ur Leukocyte Esterase NEG, Ur Microscopic SEDIMENT EXAMINED, Urine RBC 10-15 H, Urine WBC RARE, Ur Epithelial Cells RARE, Urine Mucus RARE, Urine Hemoglobin TRACE-INTACT H, Urine Glucose NEG Diagnostic Data EKG Results NSR @ 75, n oST-T wave changes Other Results ABD/PELVIS CT: Large left renal subcapsular hematoma with extension of hemorrhage into the retroperitoneum. In addition, there are curvilinear areas of high attenuation within the subcapsular region which could correspond to active extravasation or stretched vessels. CTA: negative for PE Assessment/Plan Impression/Plan: 70 year old gentleman with a PMH of HTN, HLD, HCV, GERD, dyspepsia and mitral valve replacement in May 2014 with a bovine valve, history of multiple previous nephrolithiasis status post ESWL, most recently 07/24/[address] Pavon, preseted with left abdominal/flank pain and found to have a large left renal subcapsular hematoma with extension retroperitoneally. Recommendations: 1. Left large renal hematoma with retroperitoneal extension: - Surgery on board, no surgical intervention needed at this time as per Dr. Pavon - H/H has been stable at 13.8-12.8, no apparent bleeding/superficial hematoma - Continue to monitor CBC Q6H today - Aspirin on hold - NPO for now - May consider repeat CT Abd/Pelvis if becomes hemodynamically unstable or H/H drops - Maintain BP 100 systolically, BP 117/66 in AM - IV Zofran for N/V (not having currently) - IV Morphine for pain; better anali 09/17 2. HTN, HLD, MV replacement, GERD/dyspepsia: - The medication list has been updated - He is on 4 BP meds (Metoprolol, losartan, Amlodipine and Chlorthiadone) - Will restart his home meds but hold Aspirin/NSAID and BP meds) - Patient sees Dr. Allison as an out patient and has an appointment with him in August. - It would be advisable to get Dr. Allison's input regarding optimization of his cardiac meds - It is important to note that we called [place] pharmacy, [facility] pharmacy, his PCP and his friend to get a list of meds. All lists do not match. the CMR is done acccording to the latest list sent by Dr. Baker, the list provided by the patient and discussing meds with him, however, he is also not sure about a few meds that were recenty changed especially cardiac meds and diuretics. 3. Patient is hemodynamically stable with stable H/H and no active bleed. OKAY to downgrade to Gen Med. Discussed with Dr. Lemon. Surgical PA made aware of decision. NPO FULL CODE ALPS for dvt ppx Problem List: 1. Traumatic perinephric hematoma of left kidney Consult Acknowledgment - Thank you for your consult request. SHERICE GARCIATressa ANDRADE 07/25/16 0905: Assessment/Plan Other Findings/Comments: I have personally seen and examined the patient. I agree with the resident's assessment and plan as detailed above. Briefly, the patient is a 70 year old gentleman with a PMH of HTN, HLD, HCV, GERD, dyspepsia and mitral valve replacement in May 2014 with a bovine valve. He also has a history of multiple previous nephrolithiasis status post ESWL, most recently 07/24/[address] Pavon. The patient was admitted with increased abdominal pain. She had a CT of the abdomen and pelvis that showed a large left renal subcapsular hematoma with extension of hemorrhage into the retroperitoneum. In addition, there are curvilinear areas of high attenuation within the subcapsular region which could correspond to active extravasation or stretched vessels. The patient was admitted to the CRCU for monitoring. The patient's Hgb has been stable. His pain is well controlled. We will continue to monitor the patient's CBC closely for the next 24 hours. His aspirin is on hold. He will remain NPO. We will continue with pain control. We will follow up with the patient's home medication list. We will continue to monitor the patient in the ICU until cleared by surgery. Consult Acknowledgment - Thank you for your consult request.
[2016-07-25] MEDS ORDERED: ALLOPURINOL300 M1 PO (08:14)
[2016-07-25] MEDS ORDERED: LEVOTHYROXINE137 MCG PO (08:15)
[2016-07-25] MEDS ORDERED: LOPRESSOR50 M1 PO (08:15)
[2016-07-25] MEDS ORDERED: OMEPRAZOLE40 M1 PO (08:16)
[2016-07-25] MEDS ORDERED: ZETIA10 M1 PO (08:17)
[2016-07-25] MEDS ORDERED: COZAAR100 M1 PO (08:18)
[2016-07-25] MEDS ORDERED: FLOMAX0.4 M1 PO (08:19)
[2016-07-25] MEDS ORDERED: CRESTOR20 M2 PO (08:21)
[2016-07-25] MEDS ORDERED: FERROUS SULFAT325 M3 PO (08:21)
[2016-07-25 09:21] LABS: ABSOLUTE BASOPHIL COUNT 0 /CUMM (0.0-0.2); ABSOLUTE EOSINOPHIL COUNT 0 /CUMM (0.0-0.7); ABSOLUTE GRANULOCYTE CT 9.3 /CUMM (1.4-6.5); ABSOLUTE LYMPH COUNT 0.9 /CUMM (1.2-3.4); ABSOLUTE MONOCYTE COUNT 0.6 /CUMM (0.10-0.60); BASOPHIL % 0 % (0.0-2.0); EOSINOPHIL % 0 % (0-5); GRANULOCYTE % 86.3 % (42.2-75.2); HEMATOCRIT 36.8 % (42-52); MEAN CORPUSCULAR HGB CONC 34.8 G/DL (33.0-37.0); MEAN CORPUSCULAR VOLUME 86.3 FL (80.0-94.0); MEAN PLATELET VOLUME 7.4 FL (7.4-10.4); PLATELET COUNT 194 /CUMM (130-400); RBC DISTRIBUTION WIDTH 13.7 % (11.5-14.5); RED BLOOD CELL CT 4.26 /CUMM (4.70-6.10); WHITE BLOOD CELL COUNT 10.8 /CUMM (4.8-10.8)
--- NOTE | 2016-07-25 11:13 | NUR ---
@0800-PT AWAKE/ALERT AND ORIENTED. CALM AND COOP. FOLLOWS COMMANDS. PAIN /10. CONT ON MORPHINE CORONER'S JUROR-DEMAND DOSE ONLY 2MG, 10 MIN LOCKOUT. SEE CORONER'S JUROR INTERVENTION FOR DETAILS. PAIN CONT TO L ABD/TENDER AND GUARDING TO SITE. NO ECCHYMOSIS NOTED. CONT ON NC-4L. O2SAT 93-95%. LUNGS CLEAR, DIM TO BS. NSR HR 70S. TROP NEG THIS AM. BP STABLE 100-110 SYSTOLIC. REG DIET PROVIDED, CHRIS WELL. URINAL AT BEDSIDE BUT NO VOID AT THIS TIME. URINE TO BE STRAINED. SKIN INTACT. + PULSES. IVF CONT TO INFUSE NS AT 100ML/HR. REPEAT CBC AT 0900.
--- NOTE | 2016-07-25 11:16 | NUR ---
@0900-REPEAT CBC DRAWN AT THIS TIME. LAC SITE INFILTRATED AND REMOVED. PT COMF AT THIS TIME. CONT TO MONITOR, CALL FULLER WITHIN REACH.
[2016-07-25] MEDS ORDERED: CAVERJECT20 MCG (11:57)
[2016-07-25] MEDS ORDERED: LOSARTAN-HCTZ1 EAC1 PO (12:02)
[2016-07-25] MEDS ORDERED: FLUTICASONE PRO16 GM NASB (12:02)
[2016-07-25] MEDS ORDERED: VIAGRA100 M1 PO (12:05)
[2016-07-25] MEDS ORDERED: NAMENDA XR28 M1 PO (12:45)
--- NOTE | 2016-07-25 14:42 | Event Note ---
Event Note Event Note: The patient is stable to be transferred to [facility]. Due to the need for monitoring his hemodynamics and H/H, and no need for surgical intervention at this point, the patient will be transferred to medicine service once he is on the floor. Surgical PA, Maria E, made aware who will update Dr. Pavon. Dr. Lemon made aware. CORRINE made aware.
[2016-07-25 16:37] LABS: ABSOLUTE BASOPHIL COUNT 0 /CUMM (0.0-0.2); ABSOLUTE EOSINOPHIL COUNT 0.1 /CUMM (0.0-0.7); ABSOLUTE GRANULOCYTE CT 8.3 /CUMM (1.4-6.5); ABSOLUTE LYMPH COUNT 1.2 /CUMM (1.2-3.4); ABSOLUTE MONOCYTE COUNT 0.9 /CUMM (0.10-0.60); BASOPHIL % 0.3 % (0.0-2.0); EOSINOPHIL % 0.6 % (0-5); GRANULOCYTE % 79.1 % (42.2-75.2); HEMATOCRIT 33.7 % (42-52); MEAN CORPUSCULAR HGB 29.6 PG (27.0-31.0); MEAN CORPUSCULAR VOLUME 87.1 FL (80.0-94.0); MEAN PLATELET VOLUME 7.9 FL (7.4-10.4); PLATELET COUNT 172 /CUMM (130-400); RBC DISTRIBUTION WIDTH 13.9 % (11.5-14.5); RED BLOOD CELL CT 3.87 /CUMM (4.70-6.10); WHITE BLOOD CELL COUNT 10.5 /CUMM (4.8-10.8)
[2016-07-26] VITALS (15 sets, daily range): BP systolic 100–164; BP diastolic 60–80
[2016-07-26 00:46] LABS: ABSOLUTE BASOPHIL COUNT 0 /CUMM (0.0-0.2); ABSOLUTE EOSINOPHIL COUNT 0.1 /CUMM (0.0-0.7); ABSOLUTE GRANULOCYTE CT 6.2 /CUMM (1.4-6.5); ABSOLUTE LYMPH COUNT 1.7 /CUMM (1.2-3.4); ABSOLUTE MONOCYTE COUNT 0.9 /CUMM (0.10-0.60); BASOPHIL % 0.3 % (0.0-2.0); EOSINOPHIL % 1.3 % (0-5); HEMATOCRIT 31.2 % (42-52); MEAN CORPUSCULAR HGB 29.8 PG (27.0-31.0); MEAN CORPUSCULAR HGB CONC 34.6 G/DL (33.0-37.0); MEAN CORPUSCULAR VOLUME 86.2 FL (80.0-94.0); MEAN PLATELET VOLUME 7.3 FL (7.4-10.4); PLATELET COUNT 165 /CUMM (130-400); RBC DISTRIBUTION WIDTH 13.9 % (11.5-14.5); RED BLOOD CELL CT 3.62 /CUMM (4.70-6.10)
[2016-07-26 04:29] LABS: ABSOLUTE BASOPHIL COUNT 0 /CUMM (0.0-0.2); ABSOLUTE EOSINOPHIL COUNT 0.1 /CUMM (0.0-0.7); ABSOLUTE GRANULOCYTE CT 5.1 /CUMM (1.4-6.5); ABSOLUTE LYMPH COUNT 1.7 /CUMM (1.2-3.4); ABSOLUTE MONOCYTE COUNT 0.9 /CUMM (0.10-0.60); BASOPHIL % 0.4 % (0.0-2.0); EOSINOPHIL % 1.8 % (0-5); GRANULOCYTE % 65.1 % (42.2-75.2); HEMATOCRIT 29.1 % (42-52); MEAN CORPUSCULAR HGB 29.6 PG (27.0-31.0); MEAN CORPUSCULAR HGB CONC 33.9 G/DL (33.0-37.0); MEAN CORPUSCULAR VOLUME 87.1 FL (80.0-94.0); MEAN PLATELET VOLUME 7.2 FL (7.4-10.4); PLATELET COUNT 148 /CUMM (130-400); RBC DISTRIBUTION WIDTH 14.1 % (11.5-14.5); RED BLOOD CELL CT 3.34 /CUMM (4.70-6.10); WHITE BLOOD CELL COUNT 7.9 /CUMM (4.8-10.8)
[2016-07-26 09:26] LABS: ABSOLUTE BASOPHIL COUNT 0 /CUMM (0.0-0.2); ABSOLUTE EOSINOPHIL COUNT 0.1 /CUMM (0.0-0.7); ABSOLUTE GRANULOCYTE CT 6.3 /CUMM (1.4-6.5); ABSOLUTE LYMPH COUNT 1.4 /CUMM (1.2-3.4); ABSOLUTE MONOCYTE COUNT 0.9 /CUMM (0.10-0.60); BASOPHIL % 0.3 % (0.0-2.0); EOSINOPHIL % 1.1 % (0-5); GRANULOCYTE % 72.3 % (42.2-75.2); HEMATOCRIT 28.8 % (42-52); MEAN CORPUSCULAR HGB 29.5 PG (27.0-31.0); MEAN CORPUSCULAR HGB CONC 33.8 G/DL (33.0-37.0); MEAN CORPUSCULAR VOLUME 87.4 FL (80.0-94.0); MEAN PLATELET VOLUME 7.6 FL (7.4-10.4); PLATELET COUNT 148 /CUMM (130-400); RBC DISTRIBUTION WIDTH 13.9 % (11.5-14.5); WHITE BLOOD CELL COUNT 8.7 /CUMM (4.8-10.8)
--- NOTE | 2016-07-26 13:24 | PN- Housestaff ---
Subjective Follow-up For: Left flank pain Subjective: Patient is seen and examined at bedside. Patient reports that his left-sided abdominal pain and flank pain is still present however significantly improved compared to previous days. Does not endorse any acute complaints of fever, chills, nausea, vomiting, dysuria, chest pain, palpitation or shortness of breath. No acute overnight event reported by nursing staff Review of Systems Constitutional: Reports: see HPI. Objective Last 24 Hrs of Vital Signs/I&O Vital Signs Date Time Temp Pulse Resp B/P Pulse O2 O2 Flow FiO2 Ox Delivery Rate 07/26 1406 98.2 80 18 138/70 92 Room Air 07/26 1200 98.2 96 20 100/60 07/26 1139 98.2 96 20 100/60 92 Nasal 4.0L Cannula 07/26 0800 Nasal 4.0L Cannula 07/26 0800 98.9 89 20 112/80 07/26 0754 98.9 89 20 112/80 92 Nasal 4.0L Cannula 07/26 0600 98.4 63 20 116/60 93 CPAP 07/26 0409 98.3 81 18 120/60 91 CPAP 07/26 0401 83 91 / 0400 98.3 81 18 120/60 07/26 0209 763 91 / 0207 98.2 73 20 126/64 93 CPAP 07/26 0200 98.2 73 20 126/64 07/26 0023 97.9 75 18 122/60 93 CPAP 07/26 0000 Nasal 4.0L Cannula 07/25 2207 78 93 07/25 2206 97.9 77 20 142/70 93 CPAP 07/25 2200 97.9 77 20 142/70 / 2049 72 120/58 07/25 1999 97.0 73 23 120/58 07/25 1999 97.7 73 23 120/58 93 Nasal 4.0L Cannula 07/25 1800 98.4 74 20 110/60 0215 1800 98.4 74 20 110/60 92 Room Air 07/25 1600 94 Nasal 4.0L Cannula 07/25 1600 97.9 72 18 108/50 93 Nasal 4.0L Cannula Intake & Output 07/26 1600 02/16 0800 02 0000 Intake Total 1200 1040 540 Output Total 700 450 450 Balance 500 590 90 Intake, IV 600 800 300 Intake, Oral 600 240 240 Number 0 Bowel Movements Output, Urine 700 450 450 Physical Exam General Appearance: Alert, Oriented X3, Cooperative Other Physical Findings: General Appearance: well developed/nourished, alert, awake, mild distress Head: atraumatic, normal appearance Eyes: Bilateral: other (miosis). Ears, Nose, Throat: normal ENT inspection Respiratory: normal breath sounds, chest non-tender, no respiratory distress Cardiovascular: s1 s2 w 3/6 systolic murmur with faint radiation to the L axilla and carotids. No heave noted. No rubs/gallops. regular rate/rhythm Gastrointestinal: normal bowel sounds, soft, moderate LUQ/LLQ tenderness to light palpation. Left CVA tenderness to light palpation. No bruising noted. Extremities: normal inspection Neurologic/Psych: awake, alert, oriented x 3 Assessment/Plan Assessment: This is a very pleasant 70-year-old gentleman with a past medical history of hypertension, HCV, GERD, hyperlipidemia, dyspepsia, 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 Patient was found to have urological evidence of left renal subscapular hematoma with extension retroperitoneal. Assessment and plan #Left-sided pain Pain located on the flank side and lower abdominal quadrant area. This is more likely secondary to post procedural inflammation and subcapsular right renal hematoma. Plan Symptomatic relief of pain ( oxycodone for mild pain and hydromorphone severe pain) #Right renal Subcapsular hematoma This is secondary to is W procedure in the setting of active aspirin 321 mg use. Currently CBCs stable. As of now patient has had a more dynamic stable, no surgical intervention required. Plan Will trend CBC #Has a history of hypertension Currently BP meds being held as pressure has been low. #History of possible elevated uric acid level This could be one of the precipitating factor of patient's recurrent nephrolithiasis Plan Continue allopurinol History of CAD Consider switching to aspirin 81 mg once patient is stable and discharged Continue Ezetimibe Tinea atorvastatin 80 mg # history of hypothyroidism Continue levothyroxine # history of BPH Continue tamsulosin Problem List: 1. Traumatic perinephric hematoma of left kidney Pain Ratin Pain Location: Left lower abdominal area including the flank Pain Goal: Pain 4 or less Pain Plan: Per pain pathway Tomorrow's Labs & Rationales: CBC-active hematoma
--- NOTE | 2016-07-26 15:17 | PN- Att Addend ---
Attending MD Review Statement Attending Statement Attending MD Statement: examined this patient, discuss w/resident/PA/OPERATIONS AND MAINTENANCE TECHNICAN, agreed w/resident/PA/OPERATIONS AND MAINTENANCE TECHNICAN, reviewed EMR data (avail), discussed w/nursing Attending Assessment/Plan: Laboratory Tests 07/26/16 0810: CBC w Diff NO MAN DIFF REQ, RBC 3.30 L, MCV 87.4, MCH 29.5, RDW 13.9, MPV 7.6, Gran % 72.3, Lymphocytes % 16.4 L, Monocytes % 9.9 H, Eosinophils % 1.1, Basophils % 0.3, Absolute Granulocytes 6.3, Absolute Lymphocytes 1.4, Absolute Monocytes 0.9 H, Absolute Eosinophils 0.1, Absolute Basophils 0, PUBS MCHC 33.8 07/26/16 0405: Anion Gap 6, Estimated GFR > 60, Glucose 109 H, Calcium 8.0 L, Phosphorus 3.3, Magnesium 1.9, Total Bilirubin 0.5, AST 18, ALT 45, Albumin 2.6 L, CBC w Diff NO MAN DIFF REQ, RBC 3.34 L, MCV 87.1, MCH 29.6, RDW 14.1, MPV 7.2 L, Gran % 65.1, Lymphocytes % 21.0, Monocytes % 11.7 H, Eosinophils % 1.8, Basophils % 0.4, Absolute Granulocytes 5.1, Absolute Lymphocytes 1.7, Absolute Monocytes 0.9 H, Absolute Eosinophils 0.1, Absolute Basophils 0, PUBS MCHC 33.9 07/26/16 0010: CBC w Diff NO MAN DIFF REQ, RBC 3.62 L, MCV 86.2, MCH 29.8, RDW 13.9, MPV 7.3 L, Gran % 69.0, Lymphocytes % 19.0 L, Monocytes % 10.4 H, Eosinophils % 1.3, Basophils % 0.3, Absolute Granulocytes 6.2, Absolute Lymphocytes 1.7, Absolute Monocytes 0.9 H, Absolute Eosinophils 0.1, Absolute Basophils 0, PUBS MCHC 34.6 07/25/16 1800: CBC w Diff Cancelled, WBC Cancelled, RBC Cancelled, Hgb Cancelled, Hct Cancelled , MCV Cancelled, MCH Cancelled, RDW Cancelled, Plt Count Cancelled, MPV Cancelled, PUBS MCHC Cancelled Vital Signs Date Time Temp Pulse Resp B/P Pulse O2 O2 Flow FiO2 Ox Delivery Rate 07/26 1406 98.2 80 18 138/70 92 Room Air 07/26 1200 98.2 96 20 100/60 07/26 1139 98.2 96 20 100/60 92 Nasal 4.0L Cannula 07/26 0800 Nasal 4.0L Cannula 07/26 0800 98.9 89 20 112/80 02/ 0754 98.9 89 20 112/80 92 Nasal 4.0L Cannula 07/26 0600 98.4 63 20 116/60 93 CPAP 07/26 0409 98.3 81 18 120/60 91 CPAP 07/26 0401 83 91 /16 0400 98.3 81 18 120/60 07/26 0209 763 91 07/26 0207 98.2 73 20 126/64 93 CPAP 07/26 0200 98.2 73 20 126/64 07/26 0023 97.9 75 18 122/60 93 CPAP 07/26 0000 Nasal 4.0L Cannula 07/25 2207 78 93 07/25 2206 97.9 77 20 142/70 93 CPAP 07/25 2200 97.9 77 20 142/70 07/25 2049 72 120/58 02 2000 97.0 73 23 120/58 07/25 2000 97.7 73 23 120/58 93 Nasal 4.0L Cannula 07/25 1800 98.4 74 20 110/60 02 1800 98.4 74 20 110/60 92 Room Air 07/25 1600 94 Nasal 4.0L Cannula 07/25 1600 97.9 72 18 108/50 93 Nasal 4.0L Cannula 70 year old male with PMH of HTN, HLD, HCV, GERD, dyspepsia and mitral valve replacement with bovine valve in May 2014 and multiple previous nephrolithiasis with recent episode requiring ESWL on 07/24/2016. Pt went home after the procedure and took his daily meds which included aspirin. Apparently this procedure was done as an urgent procedure and pt did not hold his aspirin prior to procedure and was taking full dose aspirin.He presented to the emergency department with complaints of abdominal pain and left flank pain and was found to have subcapsular hematoma with retroperitoneal extension on left side CT scan findings- Large left renal subcapsular hematoma with extension of hemorrhage into the retroperitoneum. Plan is to continue to monitor him closely as he has a significant drop in his hemoglobin which is partially from hydration. he is hemodynamically stable. we will cont to monitor his h/h and renal functions. d/w pt the care plan.
[2016-07-26 19:09] LABS: ABSOLUTE BASOPHIL COUNT 0 /CUMM (0.0-0.2); ABSOLUTE EOSINOPHIL COUNT 0.1 /CUMM (0.0-0.7); ABSOLUTE GRANULOCYTE CT 6.4 /CUMM (1.4-6.5); ABSOLUTE LYMPH COUNT 1.7 /CUMM (1.2-3.4); BASOPHIL % 0.3 % (0.0-2.0); EOSINOPHIL % 1.2 % (0-5); GRANULOCYTE % 68.8 % (42.2-75.2); HEMATOCRIT 28.7 % (42-52); MEAN CORPUSCULAR HGB 29.8 PG (27.0-31.0); MEAN CORPUSCULAR HGB CONC 34.4 G/DL (33.0-37.0); MEAN CORPUSCULAR VOLUME 86.7 FL (80.0-94.0); MEAN PLATELET VOLUME 7.5 FL (7.4-10.4); PLATELET COUNT 151 /CUMM (130-400); RBC DISTRIBUTION WIDTH 14.1 % (11.5-14.5); RED BLOOD CELL CT 3.31 /CUMM (4.70-6.10); WHITE BLOOD CELL COUNT 9.3 /CUMM (4.8-10.8)
--- NOTE | 2016-07-26 19:31 | Event Note ---
Event Note Event Note: Situation Chest pain Brief: Patient is a 70 YO M with perinephric hematoma, now concerned about left chest pain radiating all the way to his epigastric region. Reports similar kind of pain at the time of admission. Worse with movement and breathing. He is not diaphoretic and short of breath. VS Temp 100.4, HR 96, BP 164/66mmHg, on 4L oxygen Assessment and Plan * Appears more of a diaphragmatic irritation from hematoma * However in the setting of bleed with aspirin discontinuation, cardiac event need to be ruled out. * EKG and trop are placed ,(EKG is unremarkable) may need follow up after 6hrs. * IV morphine 1mg for pain. The above plan is discussed with my resident
--- NOTE | 2016-07-26 20:27 | NUR ---
AT 1930 STAFF NURSE RAFAEL NOTIFIED THAT PATIENT WAS COMPLAINING OF CHEST PAIN WHREN HE TRIED TO USE THE URINAL. EKG, TROPONIN AND MORPHINE 1 MG IV X 1 DOSE WERE ORDERED. PATIENT STATED THE PAIN WAS MILDLY RELIEVED WITH THE MORPHINE AND HE WAS TRYING TO RELAX. STAFF NURSE REVIEWED EKG RESULT. NO NEW ORDER GIVEN. CALL LIGHT WITHIN REACH. WILL CONTINUE TO MONITOR.
--- NOTE | 2016-07-26 23:43 | NUR ---
CRITICAL VALUE FOR TROPONIN RECEIVED FROM LAB. VALUE AT 0.16. GAS WORKER BERNARD NOTIFIED. AWAITING ORDER.
--- NOTE | 2016-07-27 00:11 | NUR ---
PATIENT ORDERED TO BE TRANSFERRED TO TELE PER PITTING MACHINE OPERATOR BERNARD. CALL RECEIVED FROM NURSING BRUSH FABRICATION SUPERVISOR TO TRANSFER PATIENT TO ICU ROOM 110. PITTING MACHINE OPERATOR MADE AWARE OF THIS.
--- NOTE | 2016-07-27 00:44 | NUR ---
PATIENT TRANSFERRED TO ICU ROOM 110 AT 0022. MEDICATION AND BELONGINGS TAKEN DOWN WITH PATIENT. PATIENT CHART AND ADDRESSOGRAPH HANDED TO NURSE GUERRERO.
[2016-07-27 00:50] VITALS: BP 166/76
--- NOTE | 2016-07-27 00:55 | NUR ---
RECIEVED PT FROM 2N TELE HOLD. A/OX3 ST 100-110'S. B/P 166/76. O2 SAT 91% ON NC/4L, O2 INCREASED TO 5L/NC O2 SAT NOW 92%. CLEAR LUNGS, DIMINSHED AT BASES. HYPOACTIVE BS. PT STATES HE HAS NOT BEEN ABLE TO PASS FLATUS. ABD DISTENDED WITH PAIN TO TOUCH ON LEFT SIDE. MD ELLIOTT AND MD CHAVEZ MADE AWRE OF ABOVE FINDINGS. MADE AWARE, PT IS NOT DUE TO PAIN MEDS YET, AND PT IS IN 10 OUT OF 10 PAIN. WILL CONT TO MONITOR. TEMP 99.2
[2016-07-27 02:13] LABS: ABSOLUTE BASOPHIL COUNT 0 /CUMM (0.0-0.2); ABSOLUTE EOSINOPHIL COUNT 0 /CUMM (0.0-0.7); ABSOLUTE LYMPH COUNT 0.9 /CUMM (1.2-3.4); ABSOLUTE MONOCYTE COUNT 1.3 /CUMM (0.10-0.60); BASOPHIL % 0.1 % (0.0-2.0); EOSINOPHIL % 0.3 % (0-5); GRANULOCYTE % 79.8 % (42.2-75.2); HEMATOCRIT 28.6 % (42-52); MEAN CORPUSCULAR HGB 29.6 PG (27.0-31.0); MEAN CORPUSCULAR HGB CONC 34.3 G/DL (33.0-37.0); MEAN CORPUSCULAR VOLUME 86.4 FL (80.0-94.0); MEAN PLATELET VOLUME 7.7 FL (7.4-10.4); PLATELET COUNT 151 /CUMM (130-400); RED BLOOD CELL CT 3.31 /CUMM (4.70-6.10); WHITE BLOOD CELL COUNT 11.3 /CUMM (4.8-10.8)
--- NOTE | 2016-07-27 02:54 | CT SCAN REPORT ---
EXAMINATION: CT ABDOMEN AND PELVIS WITHOUT CONTRAST CLINICAL INFORMATION: Pain, obstipation COMPARISON: 07/24/2016 TECHNIQUE: Multidetector volumetric imaging was performed from the superior aspect of the liver through the pubic symphysis. Sagittal and coronal reformatted images were obtained on the technologist's workstation. DLP: 1175.90 mGy-cm FINDINGS: LUNG BASES: Regions of bibasilar opacity may represent atelectasis and/or consolidation. Trace pleural effusions are present. LIVER, GALLBLADDER, AND BILIARY TREE: The liver is normal in size, shape, and attenuation. No focal hepatic lesion or biliary ductal dilatation is present. Patient is status post cholecystectomy. There is a 3-4 mm calculus in the region of the distal common bile duct. PANCREAS: Partial fatty atrophy is noted. SPLEEN: Unremarkable. ADRENAL GLANDS: Unremarkable. KIDNEYS AND URETERS: There is a redemonstrated large left renal subcapsular hematoma of heterogeneous hyperattenuation, the extent of which does not appear significantly changed from 07/24/2016. However, fluid in the retroperitoneum, left greater than right, has overall mildly increased in volume since prior. Bilateral cysts are redemonstrated. No hydronephrosis bilaterally. A few scattered tiny right renal calculi are noted. BLADDER: Unremarkable. GASTROINTESTINAL TRACT: The small and large bowel are unremarkable without evidence of wall thickening or obstruction. ABDOMINAL WALL: There is increased stranding along the subcutaneous tissues of the left flank and possibly the right flank, though the right side is not fully included in the imaging. LYMPH NODES: Normal. VASCULAR: There is atherosclerotic calcification along the aorta and iliac arteries. PELVIC VISCERA: The prostate gland is enlarged, measuring 5.1 cm in transverse diameter. OSSEOUS STRUCTURES: Degenerative changes are noted in the spine. IMPRESSION: 1. Redemonstrated large left renal subcapsular hematoma, similar in appearance to 07/24/2016. However, there is mildly increased fluid tracking within the retroperitoneum compared to prior, left greater than right, suspicious for blood products. 2. Bibasilar pulmonary opacities may reflect atelectasis and/or consolidation. Trace pleural effusions. 3. Small calcification along the distal common bile duct, which may reflect choledocholithiasis.
[2016-07-27 04:24] LABS: ABSOLUTE BASOPHIL COUNT 0 /CUMM (0.0-0.2); ABSOLUTE EOSINOPHIL COUNT 0 /CUMM (0.0-0.7); ABSOLUTE GRANULOCYTE CT 9.5 /CUMM (1.4-6.5); ABSOLUTE LYMPH COUNT 1.1 /CUMM (1.2-3.4); ABSOLUTE MONOCYTE COUNT 1.4 /CUMM (0.10-0.60); BASOPHIL % 0.2 % (0.0-2.0); EOSINOPHIL % 0.2 % (0-5); GRANULOCYTE % 79.5 % (42.2-75.2); HEMATOCRIT 27.8 % (42-52); MEAN CORPUSCULAR HGB 29.7 PG (27.0-31.0); MEAN CORPUSCULAR HGB CONC 34.4 G/DL (33.0-37.0); MEAN CORPUSCULAR VOLUME 86.4 FL (80.0-94.0); MEAN PLATELET VOLUME 7.3 FL (7.4-10.4); PLATELET COUNT 163 /CUMM (130-400); RBC DISTRIBUTION WIDTH 13.9 % (11.5-14.5); RED BLOOD CELL CT 3.21 /CUMM (4.70-6.10)
--- NOTE | 2016-07-27 07:10 | Cons- CRCU ---
JENNIE GARCIA,VASILIY 07/27/16 0710: General Information and HPI Allergies/Medications Allergies: Coded Allergies: NO KNOWN ALLERGIES (07/24/16) Home Med List: Allopurinol 300 MG TABLET 300 MG PO D GOUT (Reported) Alprostadil (Caverject) 20 MCG KIT 20 MCG .ROUTE NEEDED PRN ERECTILE DYSFUNCTION (Reported) INTRACAVERNOSAL Amlodipine Besylate (Norvasc) 10 MG TABLET 10 MG PO HTN HTN (Reported) Reason to Stop at ADM: BP within control, will restart if it goes >120-130 Aspirin (Aspirin*) 325 MG TABLET 325 MG PO DAILY BLOOD THINNER (Reported) Reason to Stop at ADM: renal hematoma Chlorthalidone 25 MG TABLET 25 MG PO QAM CARDIAC (Reported) Docusate Sodium (Colace) 100 MG CAPSULE 1 CAP PO DAILY STOOL SOFTENER ( Reported) Ezetimibe (Zetia) 10 MG TABLET 10 MG PO D CHOLESTEROL (Reported) Ferrous Sulfate 325 MG (65 MG IRON) TABLET 325 MG PO BID ANEMIA (Reported) Fluticasone Propionate 50 MCG/ACTUATION SPRAY.SUSP 2 SPRAY NASB DAILY BREATHING (Reported) Lactose-Reduced Food (Ensure Liquid) 237 ML LIQUID 1 CAN PO DAILY PRN NUTRITIONAL SUPPLEMENT (Reported) Levothyroxine Sodium 137 MCG TABLET 137 MCG PO QAM HYPOTHYROIDISM (Reported) Losartan/Hydrochlorothiazide (Losartan-Hctz 50-12.5 MG Tab) 50 MG-12.5 MG TABLET 1 TAB PO DAILY BP (Reported) Memantine HCl (Namenda XR) 28 MG CAP.SPR.24 1 CAP PO DAILY MEMORY (Reported) Memantine HCl (Namenda XR) 28 MG CAP.SPR.24 1 CAP PO DAILY MEMORY (Reported) Metoprolol Tartrate 25 MG TABLET 1 TAB PO BID BP/HEART DISEASE (Reported) Omeprazole 40 MG CAPSULE.DR 40 MG PO D GERD (Reported) Oxycodone HCl/Acetaminophen (Percocet 5-325 MG Tablet) 5 MG-325 MG TABLET 1 TAB PO BID PRN PAIN (Reported) Reason to Stop at ADM: ON IV MORPHINE Prednisolone Acetate (Omnipred) 1 % DROPS.SUSP 1 GTT OPH DAILY EYE(S) ( Reported) Rosuvastatin Calcium (Crestor) 20 MG TABLET 20 MG PO D CHOLESTEROL (Reported) Sildenafil Citrate (Viagra) 100 MG TABLET 1 TAB PO DAILY NEEDED ERECTILE DYSFUNCTION (Reported) 1 hour before sexual activity Tamsulosin HCl (Flomax) 0.4 MG CAP.ER.24H 0.4 MG PO QPM BPH (Reported) Past History Travel History Traveled to [place] past 21 day No Medical History Blood Transfusion Hx: Yes Neurological: NONE EENT: NONE Cardiovascular: CAD, hypertension, hyperlipidemia, myocardial infarction, PVD Respiratory: NONE Gastrointestinal: GERD Hepatic: hepatitis C Renal: nephrolithiasis Musculoskeletal: gout, osteoarthritis Psychiatric: NONE Endocrine: hypothyroidism Blood Disorders: NONE Cancer(s): NONE 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 Home Services at Home: None Smoking Status: Never Smoked Functional Ability ADLs Independent: dressing, eating, toileting, bathing. Ambulation: independent IADLs Independent: shopping, housework, finances, food prep, telephone, transportation , medication admin. Assessment/Plan Consult Acknowledgment - Thank you for your consult request. JOSIAH GARCIA,EARNEST Plummer 07/27/16 0848: Assessment/Plan Consult Acknowledgment - Thank you for your consult request.
[2016-07-27 08:00] VITALS: BP 136/68
--- NOTE | 2016-07-27 08:48 | PN- Resident CRCU ---
See Addendum Subjective HPI/CRCU Issues: Patient in ICU for increasing troponin with chest pain, large hematoma following recent surgery. I followed up and examined the patient today. He was lying comfortably in bed, not in acute apparent distress. He complained of pain when he touches left part of his abdomen, but denies any nausea, vomiting, fever, chills, change in bowel/ bladder movements. Of note, patient had not passed bowel movement since Saturday. Vitals have stated stable overnight, no overnight issues.. 24 Hour Events: Checking for ACS. Objective Vital Signs & I&O Last 8 Hrs of Vitals and I&O: Intake & Output 07/27 1600 Intake Total Output Total Balance Patient 106.141 kg Weight Vital Signs Date Time Temp Pulse Resp B/P Pulse O2 O2 Flow FiO2 Ox Delivery Rate 07/27 1111 99.2 99 16 136/68 07/27 0901 99.2 99 16 136/68 07/27 0800 91 Nasal 5.0L Cannula 07/27 0800 99.2 99 20 13668 91 Nasal 5.0L Cannula 07/27 0616 93 95 07/27 0319 103 92 07/27 0253 105 148/72 07/27 0228 100 94 07/27 0122 105 94 07/27 0050 92 Nasal 5.0L Cannula 07/27 0050 99.2 109 14 166/76 92 Nasal 5.0L Cannula 07/26 2218 102 92 07/26 2129 99.7 108 24 158/70 91 Nasal 4.0L Cannula 07/26 2110 103 20 140/68 07/26 2110 103 140/68 07/26 1916 100.4 101 20 164/66 92 Nasal 4.0L Cannula 07/26 1835 99.4 101 24 140/66 91 Nasal 4.0L Cannula 07/26 1600 Nasal 4.0L Cannula 07/26 1406 98.2 80 18 138/70 92 Room Air Intake & Output 07/27 1600 07/27 0800 07/27 0000 Intake Total 300 500 Output Total 600 900 Balance -300 -400 Intake, IV 20 Intake, Oral 300 480 Number 0 Bowel Movements Output, Urine 600 900 Patient 106.141 kg Weight Exam General Appearance: no apparent distress, alert, awake, anxious, obese Head: atraumatic, normal appearance Ears, Nose, Throat: normal pharynx, normal ENT inspection Neck: normal inspection, supple, full range of motion Respiratory: normal breath sounds, chest non-tender, no respiratory distress Cardiovascular: regular rate/rhythm Gastrointestinal: normal bowel sounds, soft, tenderness present over left side of abdomen upto midline, no bruises visible though Extremities: normal inspection, normal capillary refill, normal range of motion Cranial Nerves: grossly intact Nutrition Nutrition: P.O. diet Current Medications: Current Medications Sig/Geri Start time Last Medication Dose Route Stop Time Status Admin Allopurinol 300 MG DAILY 07/25 1200 AC 07/27 PO 0901 Atorvastatin Calcium 80 MG 1700 07/25 1700 AC 07/27 PO 1651 Bisacodyl 10 MG DAILY 07/27 1000 AC 07/27 PO 0856 Docusate Sodium 100 MG DAILY 07/25 1000 AC 07/27 PO 0857 Ezetimibe 10 MG DAILY 07/25 1000 AC 07/27 PO 0901 Ferrous Sulfate 325 MG BID 07/25 1000 AC 07/27 PO 0857 Fluticasone 2 SPRAY DAILY 07/25 1202 AC 07/27 Propionate JEF 0856 Gemfibrozil 600 MG BID 07/27 1000 AC 07/27 PO 1111 Hydromorphone HCl 2 MG Q4P PRN 07/27 0900 AC 07/27 IV 0855 Hydromorphone HCl 2 MG ONCE PRN 07/27 0115 DC 07/27 IV 0109 Levothyroxine Sodium 0.137 MG DAILY AC 07/25 1000 AC 07/27 PO 0614 Memantine 10 MG BID 07/25 1000 AC 07/27 PO 0901 Metoprolol Tartrate 50 MG BID 07/27 1000 AC 07/27 PO 1111 Metoprolol Tartrate 25 MG BID 07/27 0238 DC 07/27 PO 0901 Morphine Sulfate 1 MG ONCE ONE 07/26 1930 DC 07/26 IV 07/26 1931 1934 Morphine Sulfate 2 MG Q4P PRN 07/26 1515 AC 07/27 IV 1837 Nitroglycerin 0.5 GM Q6 07/27 1200 AC 07/27 TOP 1651 Nitroglycerin 0.5 GM ONCE ONE 07/27 0245 DC 07/27 TOP 07/27 0246 0251 Nitroglycerin 0.4 MG ONCE ONE 07/27 0115 DC 07/27 SL 07/27 0116 0144 Omeprazole 40 MG DAILY AC 07/25 0933 02/17 PO 0613 Ondansetron HCl 4 MG Q8P PRN 07/24 2345 AC 07/25 IV 1308 Polyethylene Glycol 17 GM DAILY 07/27 1000 AC 07/27 PO 0856 Prednisolone 1 GTT DAILY 07/25 1000 AC 07/27 OPH 0856 Senna 187 MG AT BEDTIME 07/27 2200 AC PO Tamsulosin HCl 0.4 MG QPM 07/25 2200 AC 07/[address] Scan Findings: IMPRESSION: 1. Redemonstrated large left renal subcapsular hematoma, similar in appearance to 07/24/2016. However, there is mildly increased fluid tracking within the retroperitoneum compared to prior, left greater than right, suspicious for blood products. 2. Bibasilar pulmonary opacities may reflect atelectasis and/or consolidation. Trace pleural effusions. 3. Small calcification along the distal common bile duct, which may reflect choledocholithiasis. 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 He also has a history of multiple previous nephrolithiasis status post ESWL, most recently 07/24/[address] Pavon, afterwhich he came to the ED with abdominal pain and chest pain, was found to have huge hematoma. Initially observed in ICU, he was transfered to the floor when ACS was suled out, and conditions were stable. He complained of chest pain and his troponin started trending up. He is currently being managed in the ICU for the following issues: 1. Left large renal hematoma with retroperitoneal extension: - Surgery on board, no surgical intervention needed at this time as per Dr. Pavon - H/H has been stable at 12.0/27.8, no apparent bleeding/superficial hematoma - Continue to monitor CBC Q6H today - Aspirin on hold - Diet advanced already - May consider repeat CT Abd/Pelvis if becomes hemodynamically unstable or H/H drops - Vitals have been stable, except that he requires oxygen via NC. - IV Zofran for N/V - IV Morphine for moderate pain; Dilaudid for severe pain 2. HTN, HLD, MV replacement, GERD/dyspepsia: - The medication list has been updated - He is on 4 BP meds (Metoprolol, losartan, Amlodipine and Chlorthiadone) - Home meds restarted but holding Aspirin/NSAID due to recent hematoma - Dr. Allison consulting. 3. Chest pain, ruling out Acute Coronary Syndrome -The patint had left sided chest pain yesterday and troponin levels were trending up for which he was transferred to the ICU. Currently, his troponin has started to trend down now to 0.16 (pending 1930 hrs), and the EKG does not have new changes (pending 1929 hrs). -Awaiting Trop and EKG at 1730 hrs and more until trend fall. -Per Cardiology, Echo has been ordered. -NTG paste scheduled regularly, Metoprolol dose has been doubled from 25 mg to 50 mg twice a day, gemfibrozil 600 mg twice a day has been added. Patient did have an episode of left sided chest pain at around 1:30 PM today when he himself took his oxygen off. His condition improved significantly by replacing Nasal cannula back on. His saturation had dropped down to 81% on room air and drastically increased to about 94% with additional oxygen via nasal cannula. 4. Patient is hemodynamically stable with stable H/H and no active bleed. Discussed with Dr. Dick. Discussed with Dr. Pavon. NPO FULL CODE ALPS for dvt ppx Problem List: 1. Traumatic perinephric hematoma of left kidney Pain Ratin Pain Location: left side of abdomen Pain Goal: Pain 4 or less Pain Plan: pain pathway meds in place morphine and dilaudid prn Tomorrow's Labs & Rationales: ICU bundle, CBC to check his blodd loss, dyselectrolytemia Plan DVT/Prophylaxis: mechanical
--- NOTE | 2016-07-27 08:51 | Cons- Cardiology ---
General Information and HPI Consulting Request Date of Consult: 07/27/16 Requested By: ALLY ANGEL MD History of Present Illness: Js is a 70 year old male with history of hypertension and coronary artery disease, status post inferior wall myocardial infarction, which he experienced in December of 2002. He also carries a history of moderate to severe aortic stenosis for which he recently underwent surgery. The aortic valve replacement procedure was accompanied by placement of two bypass grafts. He did have some post operative atrial fibrillation. Finally, the patient has significant sleep apnea. Js presented to [facility] for severe pain that was found to be related to renal stones. After lithotripsy he developed a bleed with hematoma. Yesterday , this patient noted a severe and prolonged chest discomfort which radiated toward his back. At its peak it was associated with nausea and diaphoresis as well as some minor shortness of breath and lightheadedness. He has been tachycardic as well. In the setting of the above this patient had a rise in cardiac enzymes consistent with a type 2 GA. It should be noted that this patient has deep precordial T wave inversions on his ECG that are consistent with ischemia. It should be noted that this patient underwent an open cholecystectomy at the [facility] which I believe was also omplicated by bleeding and infection. His last echo showed a low normal EF of 50-55% with mild LVH and paradoxical septal motion consistent with a post-operative state. The left atrium is normal in size. Trace MR and TR is noted. To review this patient's prior history, Js underwent cardiac catheterization which disclosed multivessel coronary artery disease along with aortic stenosis. he had exertional chest discomfort relieved by rest along with shortness of breath. On last visit he also had lower extremity swelling and abdominal ascities that has improved with lasix. In the past this patient reported some very atypical symptoms described as an intermittent electric sensation across his chest which I felt was related to disc disease rather than cardiac disease by its description. He is also followed up by Dr. Barbosa for his peripheral vascular disease. Finally, Js has hypothyroidism and he attributes some of his weight gain to this condition. 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 It harbored a 70% proximal stenosis followed by a 90% mid stenosis and underwent PTCA with stent placement. He was also noted to have a left main with an unusually high takeoff. Allergies/Medications Allergies: Coded Allergies: NO KNOWN ALLERGIES (07/24/16) Home Med List: Allopurinol 300 MG TABLET 300 MG PO D GOUT (Reported) Alprostadil (Caverject) 20 MCG KIT 20 MCG .ROUTE NEEDED PRN ERECTILE DYSFUNCTION (Reported) INTRACAVERNOSAL Amlodipine Besylate (Norvasc) 10 MG TABLET 10 MG PO HTN HTN (Reported) Reason to Stop at ADM: BP within control, will restart if it goes >120-130 Aspirin (Aspirin*) 325 MG TABLET 325 MG PO DAILY BLOOD THINNER (Reported) Reason to Stop at ADM: renal hematoma Chlorthalidone 25 MG TABLET 25 MG PO QAM CARDIAC (Reported) Docusate Sodium (Colace) 100 MG CAPSULE 1 CAP PO DAILY STOOL SOFTENER ( Reported) Ezetimibe (Zetia) 10 MG TABLET 10 MG PO D CHOLESTEROL (Reported) Ferrous Sulfate 325 MG (65 MG IRON) TABLET 325 MG PO BID ANEMIA (Reported) Fluticasone Propionate 50 MCG/ACTUATION SPRAY.SUSP 2 SPRAY NASB DAILY BREATHING (Reported) Lactose-Reduced Food (Ensure Liquid) 237 ML LIQUID 1 CAN PO DAILY PRN NUTRITIONAL SUPPLEMENT (Reported) Levothyroxine Sodium 137 MCG TABLET 137 MCG PO QAM HYPOTHYROIDISM (Reported) Losartan/Hydrochlorothiazide (Losartan-Hctz 50-12.5 MG Tab) 50 MG-12.5 MG TABLET 1 TAB PO DAILY BP (Reported) Memantine HCl (Namenda XR) 28 MG CAP.SPR.24 1 CAP PO DAILY MEMORY (Reported) Memantine HCl (Namenda XR) 28 MG CAP.SPR.24 1 CAP PO DAILY MEMORY (Reported) Metoprolol Tartrate 25 MG TABLET 1 TAB PO BID BP/HEART DISEASE (Reported) Omeprazole 40 MG CAPSULE.DR 40 MG PO D GERD (Reported) Oxycodone HCl/Acetaminophen (Percocet 5-325 MG Tablet) 5 MG-325 MG TABLET 1 TAB PO BID PRN PAIN (Reported) Reason to Stop at ADM: ON IV MORPHINE Prednisolone Acetate (Omnipred) 1 % DROPS.SUSP 1 GTT OPH DAILY EYE(S) ( Reported) Rosuvastatin Calcium (Crestor) 20 MG TABLET 20 MG PO D CHOLESTEROL (Reported) Sildenafil Citrate (Viagra) 100 MG TABLET 1 TAB PO DAILY NEEDED ERECTILE DYSFUNCTION (Reported) 1 hour before sexual activity Tamsulosin HCl (Flomax) 0.4 MG CAP.ER.24H 0.4 MG PO QPM BPH (Reported) Review of Systems Review of Systems: abdominal discomfort and constipation Past History Travel History Traveled to [place] past 21 day No Medical History Blood Transfusion Hx: Yes Neurological: CVA EENT: NONE Cardiovascular: CAD, hypertension, hyperlipidemia, myocardial infarction, PVD, syncope, bioprosthetic aortic valve replacement with 2 bypass grafts, post-op atrial fibrillation Respiratory: NONE Gastrointestinal: GERD Hepatic: hepatitis C Renal: nephrolithiasis, urinary incontinence, renal insufficiency Musculoskeletal: gout, osteoarthritis Psychiatric: NONE Endocrine: diabetes, hypothyroidism Blood Disorders: NONE Cancer(s): NONE 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 Mother: GA at age 65 Father: CAD in his 70's Psychosocial History Where Do You Live? Home Services at Home: None Smoking Status: Former Smoker (smoked 25 years ago) ETOH Use: rare Functional Ability ADLs Independent: dressing, eating, toileting, bathing. Ambulation: independent IADLs Independent: shopping, housework, finances, food prep, telephone, transportation , medication admin. Exam & Diagnostic Data Vital Signs and I&O Vital Signs Date Time Temp Pulse Resp B/P Pulse O2 O2 Flow FiO2 Ox Delivery Rate 07/27 0901 99.2 99 16 136/68 07/27 0616 93 95 07/27 0319 103 92 07/27 0253 105 148/72 07/27 0228 100 94 07/27 0122 105 94 07/27 0050 92 Nasal 5.0L Cannula 07/27 0050 99.2 109 14 166/76 92 Nasal 5.0L Cannula 07/268 102 92 07/26 2128 99.7 108 24 158/70 91 Nasal 4.0L Cannula 07/260 103 20 140/68 07/260 103 140/68 07/26 1916 100.4 101 20 164/66 92 Nasal 4.0L Cannula 07/26 1835 99.4 101 24 140/66 91 Nasal 4.0L Cannula 07/26 1600 Nasal 4.0L Cannula 07/26 1406 98.2 80 18 138/70 92 Room Air 07/26 1200 98.2 96 20 100/60 07/26 1139 98.2 96 20 100/60 92 Nasal 4.0L Cannula Intake & Output 07/27 1600 07/27 0800 07/27 0000 07/26 1600 07/26 0800 07/26 0000 Intake Total 656 132 2432 1040 540 Output Total 600 900 700 450 450 Balance -300 -400 500 590 90 Intake, IV 20 600 800 300 Intake, Oral 300 480 600 240 240 Number 0 0 Bowel Movements Output, Urine 600 900 700 450 450 Physical Exam: General: WD/ WN male in NAD; alert and oriented x 3 HEENT: NC/AT, PERRL, EOMI, clear oropharynx Neck: no JVD, no carotid bruit Heart RRR with 3/6 systolic murmur Lungs: clear bilaterally Abdomen: soft, mildly tender, +ve bowel sounds Extremities: no edema Diagnostic Data EKG Results sinus rhythm with old inferior GA and ischemic precordial T wave inversions Assessment/Plan Assessment/Plan * Js has experienced a type 2 GA in the setting of pain, physiologic stress related to anemia and the discontinuation of his cardiac medications. This GA has manifested as chest discomfort and diffuse precordial T wave inversions along with elevated cardiac enzymes. We will need to follow his troponin until it peaks. Obtain an echocardiogram to assess for regional wall motion abnormalities and to reassess his aortic valve which has a more prominent murmur than noted in the office. * This patient would benefit from aspirin as long as the risk of bleeding has past. If not then we will need to hold off of anticoagulation. * Begin metoprolol at 50mg PO BID. Add NTG paste 1/2 inch Q 6 hours. He should also be on Crestor 40mg daily and gemfibrozil 600mg BID. Continue supplemental oxygen. Consult Acknowledgment - Thank you for your consult request.
--- NOTE | 2016-07-27 15:24 | ECHOCARDIOGRAM REPORT ---
TANYA VILLALTA Age: 70 : 1945 Gender: M Exam Date: 07/27/2016 13:38 Exam Location: [facility] Ht (in): 69 Wt (lb): 235 BSA: 2.32 BP: / Ordering Physician: VASILIY SCHNEIDER MD Referring Physician: VASILIY SCHNEIDER MD Technologist: Ben Rosales [facility] Room Number: 110-1 Indications: Chest Pain Rhythm: Sinus Technical Quality: technically difficult FINDINGS Left Ventricle Normal left ventricular size with mild left ventricular hypertrophy. Normal systolic function with no obvious regional wall motion abnormalities. Normal left ventricular diastolic filling pattern for age. The ejection fraction is visually estimated at 70%. Right Ventricle The right ventricle is normal in size and function. Right Atrium The right atrium is normal in size. Left Atrium The left atrium is normal in size. The interatrial septum is intact. Mitral Valve The mitral valve is normal in structure and function. There is no mitral regurgitation. Aortic Valve Normally seated bioprosthetic aortic valve with mild stenosis. There is no aortic regurgitation. Tricuspid Valve The tricuspid valve is normal in structure and function. There is trace tricuspid regurgitation. Pulmonary artery systolic pressure is normal. Pulmonic Valve Structurally normal pulmonic valve. There is no pulmonic regurgitation. Pericardium Normal pericardium without effusion. No pleural effusion. Great Vessels Normal aortic root dimension. The aortic arch and great vessels are well seen and are normal. CONCLUSIONS 1. Normal EF of 705. 2. Mild left ventricular hypertrophy. 3. Trace tricuspid regurgitation. 4. Normally seated and functioning bioprosthetic aortic valve with mild stenosis. Ed Allison M.D. (Electronically Signed) Final Date: 27 July 2016 15:23 MEASUREMENTS (Male / Female) Normal Values 2D ECHO LV Diastolic Diameter PLAX 4.0 cm 4.2 - 5.9 / 3.9 - 5.3 cm LV Systolic Diameter PLAX 2.1 cm 2.1 - 4.0 cm LV Fractional Shortening PLAX 47.5 % 25 - 46 % LV Ejection Fraction 2D Teich 79.4 % IVS Diastolic Thickness 1.2 cm LVPW Diastolic Thickness 1.2 cm LV Relative Wall Thickness 0.6 LVOT Diameter 1.7 cm Aortic Root Diameter 2.4 cm LA Systolic Diameter LX 3.9 cm 3.0 - 4.0 / 2.7 - 3.8 cm LA Volume 34.0 cm 18 - 58 / 22 - 52 cm DOPPLER AV Peak Velocity 278.0 cm/s AV Peak Gradient 30.9 mmHg AV Mean Velocity 177.0 cm/s AV Mean Gradient 15.0 mmHg AV Velocity Time Integral 47.7 cm LVOT Peak Velocity 104.0 cm/s LVOT Peak Gradient 4.3 mmHg LVOT Mean Velocity 65.8 cm/s LVOT Mean Gradient 2.0 mmHg LVOT Velocity Time Integral 31.7 cm LVOT Stroke Volume 72.0 cm AV Area Cont Eq vti 1.5 cm AV Area Cont Eq pk 0.8 cm MV Peak Velocity 143.0 cm/s MV Peak Gradient 8.2 mmHg MV Mean Velocity 85.5 cm/s MV Mean Gradient 3.0 mmHg Mitral E Point Velocity 98.2 cm/s Mitral A Point Velocity 122.0 cm/s Mitral E to A Ratio 0.8 MV PHT Velocity 110.0 cm/s MV Deceleration Burnet 433.0 cm/s MV Pressure Half Time 76.2 ms MV Area PHT 2.9 cm MV Deceleration Time 246.0 ms TR Peak Velocity 190.0 cm/s TR Peak Gradient 14.4 mmHg Right Atrial Pressure 5.0 mmHg Pulmonary Artery Systolic Pressu 19.4 mmHg Right Ventricular Systolic Press 19.4 mmHg PV Peak Velocity 154.0 cm/s PV Peak Gradient 9.5 mmHg PV Mean Velocity 103.0 cm/s PV Mean Gradient 5.0 mmHg PV Velocity Time Integral 31.3 cm LV E' Lateral Velocity 13.5 cm/s Mitral E to LV E' Lateral Ratio 7.3 LV E' Septal Velocity 5.6 cm/s Mitral E to LV E' Septal Ratio 17.7
[2016-07-27 16:00] VITALS: BP 136/74
[2016-07-27 19:15] VITALS: BP 147/74
[2016-07-28 00:17] VITALS: BP 110/70
[2016-07-28 07:58] VITALS: BP 136/78
--- NOTE | 2016-07-28 08:33 | PN- Housestaff ---
See Addendum Subjective Follow-up For: Left sided abdominal pain Right renal subcapsular hematoma HTN CAD Hypothyroidism BPH Subjective: Patient seen and examined at bedside this AM. He reports he feels well but continues to endorse left sided abdominal/flank/back pain. He reports with deep breaths his left chest continues to hurt as well. Of note, patient transferred from to [facility] yesterday secondary to this chest pain to rule out ACS. Review of Systems Constitutional: Denies: chills, fever. EENTM: Denies: double vision, nasal congestion. Cardiovascular: Reports: chest pain. Denies: palpitations. Respiratory: Denies: cough. Gastrointestinal: Reports: abdominal pain. Genitourinary: Denies: dysuria. Musculoskeletal: Reports: back pain. Skin: Denies: rash. Neurological/Psychological: Denies: confusion. Objective Last 24 Hrs of Vital Signs/I&O Vital Signs Date Time Temp Pulse Resp B/P Pulse O2 O2 Flow FiO2 Ox Delivery Rate 07/28 0926 99.0 96 20 136/78 07/28 0800 Nasal 5.0L Cannula 07/28 0758 99.0 96 20 136/78 95 07/28 0047 87 95 07/28 0017 98.6 86 20 110/70 95 CPAP 07/28 0000 98 Nasal 5.0L Cannula 07/27 2246 104 95 07/278 101 147/74 07/278 101 147/74 07/27 1915 99.7 101 18 147/74 91 Nasal 4.0L Cannula 07/27 1600 92 Nasal 5.0L Cannula 07/27 1600 98.9 97 22 136/74 92 Nasal 5.0L Cannula Intake & Output 07/28 1600 07/28 0800 07/28 0000 Intake Total 480 1020 Output Total 300 900 Balance 180 120 Intake, IV 20 Intake, Oral 480 1000 Output, Urine 300 900 Physical Exam General Appearance: Alert, Oriented X3, Cooperative, No Acute Distress Skin: No Rashes HEENT: Atraumatic, PERRLA, Mucous Membr. moist/pink Neck: Supple Cardiovascular: Regular Rate, Normal S1, Normal S2, 3/6 systolic murmur appreciated, no rubs/gallops Lungs: Decreased breath sounds bilaterally Abdomen: +BS, soft, LUQ/LLQ adbominal pain with palpation. +Left CVA tenderness Neurological: Normal Speech, Normal Tone Extremities: No Clubbing Current Medications: Current Medications Sig/Geri Start time Last Medication Dose Route Stop Time Status Admin Allopurinol 300 MG DAILY 07/25 1200 AC 07/28 PO 0926 Atorvastatin Calcium 80 MG 1700 07/25 1700 AC 07/27 PO 1651 Bisacodyl 10 MG DAILY 07/27 1000 AC 07/28 PO 0925 Docusate Sodium 100 MG DAILY 07/25 1000 AC 07/28 PO 0925 Ezetimibe 10 MG DAILY 07/25 1000 AC 07/28 PO 0926 Ferrous Sulfate 325 MG BID 07/25 1000 AC 07/28 PO 0925 Fluticasone 2 SPRAY DAILY 07/25 1202 AC 07/28 Propionate JEF 0926 Gemfibrozil 600 MG BID 07/27 1000 AC 07/28 PO 0926 Hydromorphone HCl 1 MG Q4P PRN 07/27 2130 AC 07/28 IV 0337 Hydromorphone HCl 2 MG Q4P PRN 07/27 0900 DC 07/27 IV 0855 Levothyroxine Sodium 0.137 MG DAILY AC 07/25 1000 AC 07/28 PO 0605 Memantine 10 MG BID 07/25 1000 AC 07/28 PO 0926 Metoprolol Tartrate 50 MG BID 07/27 1000 AC 07/28 PO 0926 Morphine Sulfate 2 MG Q4P PRN 07/26 1515 AC 07/27 IV 1837 Nitroglycerin 0.5 GM Q6 07/27 1200 AC 07/28 TOP 1111 Omeprazole 40 MG DAILY AC 07/25 0933 AC 07/28 PO 0605 Ondansetron HCl 4 MG Q8P PRN 07/24 2345 AC 07/25 IV 1308 Polyethylene Glycol 17 GM DAILY 07/27 1000 AC 07/28 PO 0926 Prednisolone 1 GTT DAILY 07/25 1000 AC 07/28 OPH 0926 Senna 187 MG AT BEDTIME 07/27 2200 AC 07/27 PO 2128 Tamsulosin HCl 0.4 MG QPM 07/25 2200 AC 07/27 PO 2128 Last 24 Hrs of Lab/Gregory Results Last 24 Hrs of Labs/Mics: Laboratory Tests 07/27/16 2048: Troponin I 0.13 *H 07/27/16 1600: Troponin I Cancelled 07/27/16 1350: Troponin I 0.16 *H 07/27/16 1300: Troponin I Cancelled Assessment/Plan Assessment: This is a very pleasant 70-year-old gentleman with a past medical history of hypertension, HCV, GERD, hyperlipidemia, dyspepsia, 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 Patient was found to have urological evidence of left renal subscapular hematoma with extension retroperitoneal. Assessment and plan #Left-sided pain Pain located on the flank side and lower abdominal quadrant area. This is more likely secondary to post procedural inflammation and subcapsular right renal hematoma. Plan Symptomatic relief of pain ( oxycodone for mild pain and hydromorphone severe pain) #Right renal Subcapsular hematoma This is secondary to post-procedure in the setting of active aspirin 321 mg use. Currently CBCs stable. As of now patient is hemodyncamically stable, no surgical intervention required. Plan Will trend CBC #Has a history of hypertension Currently BP meds being held as pressure has been low. Restart once BP trends up. #History of possible elevated uric acid level This could be one of the precipitating factor of patient's recurrent nephrolithiasis Plan Continue allopurinol #History of CAD Consider switching to aspirin 81 mg once patient is stable and discharged Continue Ezetimibe Continue atorvastatin 80 mg # History of hypothyroidism Continue levothyroxine # History of BPH Continue tamsulosin #Chest pain Cardio consult placed and appreciated Continue telemetry monitoring Slight elevation of troponins 2/2 type II [place] Peak troponin at 0.16, no further need to trend F/U echocardiogram Hold off ASA for now, resume once risk of bleeding low. Dr. Allison suggested the following medication changes: metoprolol at 50mg PO BID. Add NTG paste 1/2 inch Q 6 hours. Crestor 40mg daily and gemfibrozil 600mg BID FULL CODE DVTP: ALPS Mild pain pathway Problem List: 1. Traumatic perinephric hematoma of left kidney Pain Ratin Pain Location: Left abdomen/flank Pain Goal: Pain 7 or less Pain Plan: Per pain pathway. Tomorrow's Labs & Rationales: CBC-active hematoma
--- NOTE | 2016-07-28 14:35 | PN- Urology ---
Subjective Subjective: Pt feeling much better after a BM today. He has no flank discomfort. no CP, SOB or feeling dizzy. No N/V/F/C. Review of Systems Constitutional: Reports: no symptoms. EENTM: Reports: no symptoms. Cardiovascular: Reports: no symptoms. Respiratory: Reports: no symptoms. Gastrointestinal: Reports: no symptoms, constipation (better after BM). Genitourinary: Reports: no symptoms. Musculoskeletal: Reports: no symptoms. Comments: pt awake and alert, NAD lying in bed abd doft, ND/NT no CVA tenderness Objective Vital Signs and I&Os Vital Signs Date Time Temp Pulse Resp B/P Pulse O2 O2 Flow FiO2 Ox Delivery Rate 07/28 0926 99.0 96 20 136/78 07/28 0800 Nasal 5.0L Cannula 07/28 0758 99.0 96 20 136/78 95 07/28 0047 87 95 07/28 0017 98.6 86 20 110/70 95 CPAP 07/28 0000 98 Nasal 5.0L Cannula 07/27 2246 104 95 07/27 2128 101 147/74 07/27 2128 101 147/74 07/27 1915 99.7 101 18 147/74 91 Nasal 4.0L Cannula 07/27 1600 92 Nasal 5.0L Cannula 07/27 1600 98.9 97 22 136/74 92 Nasal 5.0L Cannula Intake & Output 07/28 1600 07/28 0800 07/28 0000 07/27 1600 07/27 0800 07/27 0000 Intake Total 131 792 4106 1760 300 500 Output Total 300 389 382 2897 600 900 Balance 500 180 120 660 -300 -400 Intake, IV 20 20 Intake, Oral 316 653 3211 1760 300 480 Number 0 Bowel Movements Output, Urine 300 934 130 2560 600 900 Patient 106.141 kg Weight Physical Exam General Appearance: well developed/nourished, no apparent distress, alert, awake , comfortable Head: normal appearance Ears, Nose, Throat: normal ENT inspection Respiratory: no respiratory distress Abdomen: soft, non-tender Back: normal inspection Skin: intact, normal color Current Medications: Current Medications Sig/Geri Start time Last Medication Dose Route Stop Time Status Admin Allopurinol 300 MG DAILY 07/25 1200 AC 07/28 PO 0926 Atorvastatin Calcium 80 MG 1700 07/25 1700 AC 07/27 PO 1651 Bisacodyl 10 MG DAILY 07/27 1000 AC 07/28 PO 0925 Docusate Sodium 100 MG DAILY 07/25 1000 AC 07/28 PO 0925 Ezetimibe 10 MG DAILY 07/25 1000 AC 07/28 PO 0926 Ferrous Sulfate 325 MG BID 07/25 1000 AC 07/28 PO 0925 Fluticasone 2 SPRAY DAILY 07/25 1202 AC 07/28 Propionate JEF 0926 Gemfibrozil 600 MG BID 07/27 1000 AC 07/28 PO 0926 Hydromorphone HCl 1 MG Q4P PRN 07/27 2130 AC 07/28 IV 0337 Hydromorphone HCl 2 MG Q4P PRN 07/27 0900 DC 07/27 IV 0855 Levothyroxine Sodium 0.137 MG DAILY AC 07/25 1000 AC 07/28 PO 0605 Memantine 10 MG BID 07/25 1000 AC 07/28 PO 0926 Metoprolol Tartrate 50 MG BID 07/27 1000 AC 07/28 PO 0926 Morphine Sulfate 2 MG Q4P PRN 07/26 1515 AC 07/27 IV 1837 Nitroglycerin 0.5 GM Q6 07/27 1200 AC 07/28 TOP 1111 Omeprazole 40 MG DAILY AC 07/25 0933 AC 07/28 PO 0605 Ondansetron HCl 4 MG Q8P PRN 07/24 2345 AC 07/25 IV 1308 Polyethylene Glycol 17 GM DAILY 07/27 1000 AC 07/28 PO 0926 Prednisolone 1 GTT DAILY 07/25 1000 AC 07/28 OPH 0926 Senna 187 MG AT BEDTIME 07/27 2200 AC 07/27 PO 212 Tamsulosin HCl 0.4 MG QPM 07/25 2200 AC 07/27 PO 2128 Results Last 48 Hours of Labs: Laboratory Tests 07/27 07/27 07/27 07/27 07/27 2048 1600 1350 1300 0945 Chemistry Troponin I (<0.11 ng/ml) 0.13 *H Cancelled 0.16 *H Cancelled 0.21 *H 07/27 07/27 0400 0400 Chemistry Sodium (137 - 145 mmol/L) 135 L Potassium (3.5 - 5.1 mmol/L) 3.6 Chloride (98 - 107 mmol/L) 97 L Carbon Dioxide (22 - 30 mmol/L) 30 Anion Gap (5 - 16) 8 BUN (9 - 20 mg/dL) 15 Creatinine (0.7 - 1.2 mg/dL) 0.8 Estimated GFR (>60 ml/min) > 60 BUN/Creatinine Ratio (7 - 25 %) 18.8 Troponin I (<0.11 ng/ml) 0.20 *H Hematology CBC w Diff NO MAN DIFF REQ WBC (4.8 - 10.8 /CUMM) 12.0 H RBC (4.70 - 6.10 /CUMM) 3.21 L Hgb (14.0 - 18.0 G/DL) 9.6 L Hct (42 - 52 %) 27.8 L MCV (80.0 - 94.0 FL) 86.4 MCH (27.0 - 31.0 PG) 29.7 RDW (11.5 - 14.5 %) 13.9 Plt Count (130 - 400 /CUMM) 163 MPV (7.4 - 10.4 FL) 7.3 L Gran % (42.2 - 75.2 %) 79.5 H Lymphocytes % (20.5 - 51.1 %) 8.8 L Monocytes % (1.7 - 9.3 %) 11.3 H Eosinophils % (0 - 5 %) 0.2 Basophils % (0.0 - 2.0 %) 0.2 Absolute Granulocytes (1.4 - 6.5 /CUMM) 9.5 H Absolute Lymphocytes (1.2 - 3.4 /CUMM) 1.1 L Absolute Monocytes (0.10 - 0.60 /CUMM) 1.4 H Absolute Eosinophils (0.0 - 0.7 /CUMM) 0 Absolute Basophils (0.0 - 0.2 /CUMM) 0 PUBS MCHC (33.0 - 37.0 G/DL) 34.4 07/27 07/26 0135 2220 Chemistry Troponin I (<0.11 ng/ml) 0.16 *H Hematology CBC w Diff NO MAN DIFF REQ WBC (4.8 - 10.8 /CUMM) 11.3 H RBC (4.70 - 6.10 /CUMM) 3.31 L Hgb (14.0 - 18.0 G/DL) 9.8 L Hct (42 - 52 %) 28.6 L MCV (80.0 - 94.0 FL) 86.4 MCH (27.0 - 31.0 PG) 29.6 RDW (11.5 - 14.5 %) 14.0 Plt Count (130 - 400 /CUMM) 151 MPV (7.4 - 10.4 FL) 7.7 Gran % (42.2 - 75.2 %) 79.8 H Lymphocytes % (20.5 - 51.1 %) 8.4 L Monocytes % (1.7 - 9.3 %) 11.4 H Eosinophils % (0 - 5 %) 0.3 Basophils % (0.0 - 2.0 %) 0.1 Absolute Granulocytes (1.4 - 6.5 /CUMM) 9.0 H Absolute Lymphocytes (1.2 - 3.4 /CUMM) 0.9 L Absolute Monocytes (0.10 - 0.60 /CUMM) 1.3 H Absolute Eosinophils (0.0 - 0.7 /CUMM) 0 Absolute Basophils (0.0 - 0.2 /CUMM) 0 PUBS MCHC (33.0 - 37.0 G/DL) 34.3 07/26 1755 Hematology CBC w Diff NO MAN DIFF REQ WBC (4.8 - 10.8 /CUMM) 9.3 RBC (4.70 - 6.10 /CUMM) 3.31 L Hgb (14.0 - 18.0 G/DL) 9.9 L Hct (42 - 52 %) 28.7 L MCV (80.0 - 94.0 FL) 86.7 MCH (27.0 - 31.0 PG) 29.8 RDW (11.5 - 14.5 %) 14.1 Plt Count (130 - 400 /CUMM) 151 MPV (7.4 - 10.4 FL) 7.5 Gran % (42.2 - 75.2 %) 68.8 Lymphocytes % (20.5 - 51.1 %) 18.4 L Monocytes % (1.7 - 9.3 %) 11.3 H Eosinophils % (0 - 5 %) 1.2 Basophils % (0.0 - 2.0 %) 0.3 Absolute Granulocytes (1.4 - 6.5 /CUMM) 6.4 Absolute Lymphocytes (1.2 - 3.4 /CUMM) 1.7 Absolute Monocytes (0.10 - 0.60 /CUMM) 1.0 H Absolute Eosinophils (0.0 - 0.7 /CUMM) 0.1 Absolute Basophils (0.0 - 0.2 /CUMM) 0 PUBS MCHC (33.0 - 37.0 G/DL) 34.4 Assessment/Plan Assessment/Plan Pt stable HCT after ESWL with retroperitoneal bleed. Problem List: 1. Traumatic perinephric hematoma of left kidney Core Measures/Miscellaneous Holland Catheter Still Needed? No Venous Thromboembolism VTE Risk Factors: Acute medical illness, Age > 40 VTE Contraindications: Active Bleeding VTE Prophylaxis Ordered Inpt: Early Ambulation VTE Diagnosis: No VTE Type: NONE Beta Zak Is Beta Zak a Home Med? Yes If No, Why Not? hypotension Antibiotics Is Patient on Antibiotics? No
--- NOTE | 2016-07-28 15:11 | PN- Cardiology ---
Subjective Subjective: The patient is still having some left-sided flank pain. He has not had any chest discomfort. He denies shortness of breath. He is still having some pain on urination. He has not had any arrhythmias. His CBC is stable. His peak troponin was 0.20 on July 27. Objective Vital Signs and I&Os Vital Signs Date Time Temp Pulse Resp B/P Pulse O2 O2 Flow FiO2 Ox Delivery Rate 07/28 925 99.0 96 20 136/78 07/28 0800 Nasal 5.0L Cannula 07/28 0758 99.0 96 20 136/78 95 07/28 0047 87 95 07/28 0017 98.6 86 20 110/70 95 CPAP 07/28 0000 98 Nasal 5.0L Cannula 07/27 2246 104 95 07/27 2127 101 147/74 07/27 2127 101 147/74 07/27 1915 99.7 101 18 14774 91 Nasal 4.0L Cannula 07/27 1600 92 Nasal 5.0L Cannula 07/27 1600 98.9 97 22 136/74 92 Nasal 5.0L Cannula Intake & Output 07/28 1600 07/28 0800 07/28 0000 07/27 1600 07/27 0800 07/27 0000 Intake Total 048 300 7277 1760 300 500 Output Total 300 698 547 8508 600 900 Balance 500 180 120 660 -300 -400 Intake, IV 20 20 Intake, Oral 290 617 0964 1760 300 480 Number 0 Bowel Movements Output, Urine 300 802 137 7205 600 900 Patient 234 lb Weight Physical Exam: He is in no distress HEENT exam is normal Chest is clear Heart reveals grade 2 to 3/6 systolic ejection murmur at the base Extremities reveal no edema Current Medications: Current Medications Sig/Geri Start time Last Medication Dose Route Stop Time Status Admin Allopurinol 300 MG DAILY 07/25 1200 AC 07/28 PO 09 Atorvastatin Calcium 80 MG 1700 07/25 1700 AC 07/27 PO 1651 Bisacodyl 10 MG DAILY 07/27 1000 AC 07/28 PO 0925 Docusate Sodium 100 MG DAILY 07/25 1000 AC 07/28 PO 0925 Ezetimibe 10 MG DAILY 07/25 1000 AC 07/28 PO 0926 Ferrous Sulfate 325 MG BID 07/25 1000 AC 07/28 PO 0925 Fluticasone 2 SPRAY DAILY 07/25 1202 AC 07/28 Propionate JEF 0926 Gemfibrozil 600 MG BID 07/27 1000 AC 07/28 PO 0926 Hydromorphone HCl 1 MG Q4P PRN 07/27 2130 AC 07/28 IV 0337 Hydromorphone HCl 2 MG Q4P PRN 07/27 0900 DC 07/27 IV 0855 Levothyroxine Sodium 0.137 MG DAILY AC 07/25 1000 AC 07/28 PO 0605 Memantine 10 MG BID 07/25 1000 AC 07/28 PO 0926 Metoprolol Tartrate 50 MG BID 07/27 1000 AC 07/28 PO 0926 Morphine Sulfate 2 MG Q4P PRN 07/26 1515 AC 07/27 IV 1837 Nitroglycerin 0.5 GM Q6 07/27 1200 AC 07/28 TOP 1111 Omeprazole 40 MG DAILY AC 07/25 0933 AC 07/28 PO 0605 Ondansetron HCl 4 MG Q8P PRN 07/24 2345 AC 07/25 IV 1308 Polyethylene Glycol 17 GM DAILY 07/27 1000 AC 07/28 PO 0926 Prednisolone 1 GTT DAILY 07/25 1000 AC 07/28 OPH 0926 Senna 187 MG AT BEDTIME 07/27 2200 AC 07/27 PO 2128 Tamsulosin HCl 0.4 MG QPM 07/25 2200 AC 07/27 PO 2128 Results Last 48 Hrs of Labs/Mics: Laboratory Tests 07/27/16 2048: Troponin I 0.13 *H 07/27/16 1600: Troponin I Cancelled 07/27/16 1350: Troponin I 0.16 *H 07/27/16 1300: Troponin I Cancelled 07/27/16 0945: Troponin I 0.21 *H 07/27/16 0400: Troponin I 0.20 *H 07/27/16 0400: Anion Gap 8, Estimated GFR > 60, BUN/Creatinine Ratio 18.8, CBC w Diff NO MAN DIFF REQ, RBC 3.21 L, MCV 86.4, MCH 29.7, RDW 13.9, MPV 7.3 L, Gran % 79.5 H, Lymphocytes % 8.8 L, Monocytes % 11.3 H, Eosinophils % 0.2, Basophils % 0.2, Absolute Granulocytes 9.5 H, Absolute Lymphocytes 1.1 L, Absolute Monocytes 1.4 H, Absolute Eosinophils 0, Absolute Basophils 0, PUBS MCHC 34.4 07/27/16 0135: CBC w Diff NO MAN DIFF REQ, RBC 3.31 L, MCV 86.4, MCH 29.6, RDW 14.0, MPV 7.7, Gran % 79.8 H, Lymphocytes % 8.4 L, Monocytes % 11.4 H, Eosinophils % 0.3, Basophils % 0.1, Absolute Granulocytes 9.0 H, Absolute Lymphocytes 0.9 L, Absolute Monocytes 1.3 H, Absolute Eosinophils 0, Absolute Basophils 0, PUBS MCHC 34.3 07/26/16 2220: Troponin I 0.16 *H 07/26/16 1755: CBC w Diff NO MAN DIFF REQ, RBC 3.31 L, MCV 86.7, MCH 29.8, RDW 14.1, MPV 7.5, Gran % 68.8, Lymphocytes % 18.4 L, Monocytes % 11.3 H, Eosinophils % 1.2, Basophils % 0.3, Absolute Granulocytes 6.4, Absolute Lymphocytes 1.7, Absolute Monocytes 1.0 H, Absolute Eosinophils 0.1, Absolute Basophils 0, PUBS MCHC 34.4 Microbiology 07/27 0140 UPPER RESP: Surveillance Culture - COMP Recent Imaging Studies: CONCLUSIONS 1. Normal EF of 705. 2. Mild left ventricular hypertrophy. 3. Trace tricuspid regurgitation. 4. Normally seated and functioning bioprosthetic aortic valve with mild stenosis. Ed Allison M.D. (Electronically Signed) Final Date: 27 July 2016 15:23 Assessment/Plan Assessment/Plan The patient is stable from a cardiac standpoint. He has not had any arrhythmias. His echo documented mild to moderate aortic stenosis on the prosthetic valve and good left ventricular systolic function. We will continue to monitor the patient from a cardiac standpoint for now. We will hold off on restarting antiplatelet agents until cleared by urology. Continue telemetry? Yes
[2016-07-28 16:17] VITALS: BP 138/74
[2016-07-29 00:18] VITALS: BP 130/70
[2016-07-29 08:06] LABS: ABSOLUTE BASOPHIL COUNT 0 /CUMM (0.0-0.2); ABSOLUTE EOSINOPHIL COUNT 0.1 /CUMM (0.0-0.7); ABSOLUTE LYMPH COUNT 1.5 /CUMM (1.2-3.4); ABSOLUTE MONOCYTE COUNT 1.1 /CUMM (0.10-0.60); BASOPHIL % 0.3 % (0.0-2.0); EOSINOPHIL % 1.3 % (0-5); GRANULOCYTE % 71.6 % (42.2-75.2); HEMATOCRIT 23.5 % (42-52); MEAN CORPUSCULAR HGB 30.4 PG (27.0-31.0); MEAN CORPUSCULAR HGB CONC 34.7 G/DL (33.0-37.0); MEAN CORPUSCULAR VOLUME 87.5 FL (80.0-94.0); MEAN PLATELET VOLUME 7.4 FL (7.4-10.4); PLATELET COUNT 197 /CUMM (130-400); RBC DISTRIBUTION WIDTH 14.6 % (11.5-14.5); RED BLOOD CELL CT 2.69 /CUMM (4.70-6.10); WHITE BLOOD CELL COUNT 9.7 /CUMM (4.8-10.8)
[2016-07-29 08:21] VITALS: BP 143/74
--- NOTE | 2016-07-29 14:02 | PN- Att Addend ---
Attending Addendum Attending Brief Note 70M PMH HTN, HLD, GERD, CAD s/p CABG, MVR May 2014 with a bovine valve, with history of nephrolithiasis and recent ESWL admitted for intractable flank pain, left sided large subcapsular renal hematoma extending into retroperitoneum complicated by Type 2 [place]. Patient improved today. Was able to walk with PT, had a bowel movement. Still having occasional severe pain but improving. CBC stable. AFVSS NAD NCAT Supple RRR CTAB Soft, NTND No c/c/e Pulses intact A&Ox3 no focal deficits Current Medications Sig/Geri Start time Last Medication Dose Route Stop Time Status Admin Allopurinol 300 MG DAILY 07/25 1200 AC 07/29 PO 1055 Atorvastatin Calcium 80 MG 1700 07/25 1700 AC 07/28 PO 1758 Bisacodyl 10 MG DAILY 07/27 1000 AC 07/29 PO 1054 Docusate Sodium 100 MG DAILY 07/25 1000 AC 07/29 PO 1054 Ezetimibe 10 MG DAILY 07/25 1000 AC 07/29 PO 1055 Ferrous Sulfate 325 MG BID 07/25 1000 AC 07/29 PO 1054 Fluticasone 2 SPRAY DAILY 07/25 1202 AC 07/29 Propionate JEF 1052 Gemfibrozil 600 MG BID 07/27 1000 AC 07/29 PO 1054 Hydromorphone HCl 1 MG Q4P PRN 07/27 2130 AC 07/29 IV 1059 Levothyroxine Sodium 0.137 MG DAILY AC 07/25 1000 AC 07/29 PO 0551 Memantine 10 MG BID 07/25 1000 AC 07/29 PO 1055 Metoprolol Tartrate 50 MG BID 07/27 1000 AC 07/29 PO 1054 Morphine Sulfate 2 MG Q4P PRN 07/26 1515 AC 07/27 IV 1837 Nitroglycerin 0.5 GM Q6 07/27 1200 AC 07/29 TOP 0546 Omeprazole 40 MG DAILY AC 07/25 0933 AC 07/29 PO 0551 Ondansetron HCl 4 MG Q8P PRN 07/24 2345 AC 07/25 IV 1308 Polyethylene Glycol 17 GM DAILY 07/27 1000 AC 07/28 PO 0926 Prednisolone 1 GTT DAILY 07/25 1000 AC 07/29 OPH 1053 Senna 187 MG AT BEDTIME 07/27 2200 AC 07/28 PO 2153 Tamsulosin HCl 0.4 MG QPM 07/25 2200 AC 07/28 PO 2152 Laboratory Tests 07/29 0600 Chemistry Sodium (137 - 145 mmol/L) 132 L Potassium (3.5 - 5.1 mmol/L) 3.9 Chloride (98 - 107 mmol/L) 94 L Carbon Dioxide (22 - 30 mmol/L) 29 Anion Gap (5 - 16) 8 BUN (9 - 20 mg/dL) 16 Creatinine (0.7 - 1.2 mg/dL) 0.7 Estimated GFR (>60 ml/min) > 60 BUN/Creatinine Ratio (7 - 25 %) 22.9 Hematology CBC w Diff NO MAN DIFF REQ WBC (4.8 - 10.8 /CUMM) 9.7 RBC (4.70 - 6.10 /CUMM) 2.69 L Hgb (14.0 - 18.0 G/DL) 8.2 L Hct (42 - 52 %) 23.5 L MCV (80.0 - 94.0 FL) 87.5 MCH (27.0 - 31.0 PG) 30.4 RDW (11.5 - 14.5 %) 14.6 H Plt Count (130 - 400 /CUMM) 197 MPV (7.4 - 10.4 FL) 7.4 Gran % (42.2 - 75.2 %) 71.6 Lymphocytes % (20.5 - 51.1 %) 15.3 L Monocytes % (1.7 - 9.3 %) 11.5 H Eosinophils % (0 - 5 %) 1.3 Basophils % (0.0 - 2.0 %) 0.3 Absolute Granulocytes (1.4 - 6.5 /CUMM) 7.0 H Absolute Lymphocytes (1.2 - 3.4 /CUMM) 1.5 Absolute Monocytes (0.10 - 0.60 /CUMM) 1.1 H Absolute Eosinophils (0.0 - 0.7 /CUMM) 0.1 Absolute Basophils (0.0 - 0.2 /CUMM) 0 PUBS MCHC (33.0 - 37.0 G/DL) 34.7 Plan - Change pain medications from IV to Percocet 1 tab q4h PRN for mild-moderate pain, Dilaudid 2mg PO q4h PRN for severe pain - Hgb down to 8.2, may be dilutional, please repeat CBC tomorrow - Continue to hold ASA - PT eval - Continue remaining home medications - Follow cardiology and urology recommendations - ALPS for DVT PPx
[2016-07-29 15:42] VITALS: BP 135/67
[2016-07-29 22:00] VITALS: BP 150/80
--- NOTE | 2016-07-30 07:06 | PN- Housestaff ---
See Addendum Subjective Follow-up For: Intractable left flank pain Large left subcapsular renal hematoma Type 2 MT Tele-Events Since Last Visit: NSR, HR 83-93 bpm, no overnight events. Subjective: Patient seen and examined at bedside this AM. He continues to endorse left flank /abdominal pain that also transmits to the right abdomen. Patient reports that he had 2 large bowel movements over the weekened (non-bloody), that resulted in excrutiating pain but have now improved his abdominal pain. He denies any sort of bleeding and reports his appetite is adequate. Review of Systems Constitutional: Reports: malaise. Denies: chills, fever. EENTM: Denies: blurred vision, visual changes, hearing changes, nasal congestion. Cardiovascular: Denies: chest pain, palpitations. Respiratory: Denies: cough, short of breath. Gastrointestinal: Reports: abdominal pain. Denies: constipation, diarrhea, distention, melena, nausea, bloody stool, vomiting. Genitourinary: Denies: dysuria, hematuria. Musculoskeletal: Reports: back pain. Skin: Denies: rash. Neurological/Psychological: Denies: confusion, headache. Hematologic/Endocrine: Denies: bruising, bleeding. Immunologic/Allergic: Denies: splenectomy. Objective Last 24 Hrs of Vital Signs/I&O Vital Signs Date Time Temp Pulse Resp B/P Pulse O2 O2 Flow FiO2 Ox Delivery Rate 07/30 0827 98.1 96 20 144/82 93 Nasal 5.0L Cannula 07/30 0037 80 94 07/30 0000 Nasal 2.0L Cannula 07/29 2200 98.9 99 20 150/80 95 Nasal 2.0L Cannula 07/29 2103 99 150/80 07/29 2102 99 150/80 07/29 1600 94 Nasal 2.0L Cannula 07/29 1542 98.0 89 17 135/67 93 Room Air 07/29 1054 102 143/74 Intake & Output 07/30 1600 07/30 0800 07/30 0000 Intake Total 200 200 Output Total 400 370 Balance -200 -170 Intake, Oral 200 200 Output, Urine 400 370 Physical Exam General Appearance: Alert, Oriented X3, Cooperative, No Acute Distress Skin: No Rashes HEENT: Atraumatic, PERRLA, Mucous Membr. moist/pink Neck: Supple, +2 Carotid Pulse wo Bruit Lymphatic: Cervical nl Cardiovascular: Regular Rate, Normal S1 Lungs: Clear to Auscultation, Normal Air Movement Abdomen: Normal Bowel Sounds, Soft, No Masses, Tenderness to palpation x 4 quadrants Neurological: Normal Speech, Strength at 5/5 X4 Ext, Normal Tone Extremities: No Clubbing, No Cyanosis, No Edema Vascular: Pulses Symmetrical Current Medications: Current Medications Sig/Geri Start time Last Medication Dose Route Stop Time Status Admin Allopurinol 300 MG DAILY 07/25 1200 AC 07/29 PO 1055 Atorvastatin Calcium 80 MG 1700 07/25 1700 AC 07/29 PO 1715 Bisacodyl 10 MG DAILY 07/27 1000 AC 07/29 PO 1054 Docusate Sodium 100 MG DAILY 07/25 1000 AC 07/29 PO 1054 Ezetimibe 10 MG DAILY 07/25 1000 AC 07/29 PO 1055 Ferrous Sulfate 325 MG BID 07/25 1000 AC 07/29 PO 2100 Fluticasone 2 SPRAY DAILY 07/25 1202 AC 07/29 Propionate JEF 1052 Gemfibrozil 600 MG BID 07/27 1000 AC 07/29 PO 2102 Hydromorphone HCl 2 MG Q4P PRN 07/29 1615 AC 07/30 IV 0637 Hydromorphone HCl 1 MG Q4P PRN 07/27 2130 DC 07/29 IV 1059 Levothyroxine Sodium 0.137 MG DAILY AC 07/25 1000 AC 07/30 PO 0619 Memantine 10 MG BID 07/25 1000 AC 07/29 PO 2100 Metoprolol Tartrate 50 MG BID 07/27 1000 AC 07/29 PO 2102 Morphine Sulfate 2 MG Q4P PRN 07/26 1515 AC 07/27 IV 1837 Nitroglycerin 0.5 GM Q6 07/27 1200 AC 07/30 TOP 0619 Omeprazole 40 MG DAILY AC 07/25 0933 AC 07/30 PO 0619 Ondansetron HCl 4 MG Q8P PRN 07/24 2345 AC 07/25 IV 1308 Oxycodone/ 1 TAB Q4P PRN 07/29 1615 AC Acetaminophen PO Polyethylene Glycol 17 GM DAILY 07/27 1000 AC 07/28 PO 0926 Prednisolone 1 GTT DAILY 07/25 1000 AC 07/29 OPH 1053 Senna 187 MG AT BEDTIME 07/27 2200 AC 07/29 PO 2100 Tamsulosin HCl 0.4 MG QPM 07/25 2200 AC 07/29 PO 2103 Last 24 Hrs of Lab/Gregory Results Last 24 Hrs of Labs/Mics: Laboratory Tests 07/30/16 0614: CBC w Diff Pending, WBC Pending, RBC Pending, Hgb Pending, Hct Pending, MCV Pending, MCH Pending, RDW Pending, Plt Count Pending, MPV Pending, PUBS MCHC Pending Orders ECHO Findings: CONCLUSIONS 1. Normal EF of 705. 2. Mild left ventricular hypertrophy. 3. Trace tricuspid regurgitation. 4. Normally seated and functioning bioprosthetic aortic valve with mild stenosis. Miscellaneous Findings: Abd/pelvis CT: IMPRESSION: 1. Redemonstrated large left renal subcapsular hematoma, similar in appearance to 07/24/2016. However, there is mildly increased fluid tracking within the retroperitoneum compared to prior, left greater than right, suspicious for blood products. 2. Bibasilar pulmonary opacities may reflect atelectasis and/or consolidation. Trace pleural effusions. 3. Small calcification along the distal common bile duct, which may reflect choledocholithiasis. Assessment/Plan Assessment: Mr. Soriano is a very pleasant 70-year-old gentleman with a past medical history of hypertension, HCV, GERD, hyperlipidemia, dyspepsia, mitral valve replacement in May 2014 (bovine) and a history of multiple nephrolithiasis who presented to the ED with left abdominal/flank pain the same day after he had lithotripsy ESWL procedure by Dr. Pavon. Patient was found to have urological evidence of left renal subscapular hematoma with extension to the retroperitoneum. Assessment and plan #Left-sided pain Pain located on the left flank and lower abdominal quadrant area. This is more likely secondary to post procedural inflammation and subcapsular right renal hematoma. Plan Symptomatic relief of pain (1 tab percocet Q4P for mdoerate pain and hydromorphone 2mg PO Q4P for severe pain). Emphasized that patient needs to request medication from nurse to receive it. #Right renal Subcapsular hematoma 2/2 to post-procedure bleeding in the setting of active aspirin 321 mg use. Currently H&H stable and patient is hemodyncamically stable. Plan Will trend CBC daily, currently at lower end of normal to 8.1, will transfuse if <8 (consent form signed, type and screen sent) We have reconsulted Dr. Pavon (urology) today for any further surgical intervention needed and for consideration for starting ASA for cardioprotective properties in setting of subcapsular hematoma. Continue standing dose of bowel regimen (miralax, senna, colace). #History of hypertension, hyperlipidemia Antihypertensives initially held 2/2 borderline low BP and concern for active bleeding. BP now stable. Plan We have resumed metoprolol 50 mg PO BID, nitrobid 0.5 gm top Q6. Continue gemfibrozil 600 mg PO BID, lipitor 80 mg PO, zetia 10 mg PO. #History of elevated uric acid level Likely contributing to patient's recurrent nephrolithiasis. Plan Continue allopurinol daily. #History of CAD Consider resuming ASA once urology clears patient and no further drop in H&H. Continue Ezetimibe. Continue atorvastatin 80 mg. # History of hypothyroidism Continue levothyroxine. # History of BPH Continue tamsulosin #Chest pain Likely type 2 MT in setting of physiologic stress (anemia) and recent discontinuation of ASA. Troponins peaked at 0.21, have since trended down, and T wave inversion precordial leads noted. Plan Cardio consult placed and appreciated, continue telemetry monitoring Echocardiogram showed normal EF to 70%, mild LVH, trace TR, normally seated/ functioning bioprosthetic aortic valve with mild stenosis. Hold off ASA for now, resume once risk of bleeding low. Continue current cardiac regimen. #Increased O2 requirements At home, patient only uses CPAP at night without day time oxygen. Currently patient saturating about 89% on room air, requring 2-5 L NC. Plan Attempt to wean down O2 via nasal cannula. Incentive Spirometry. If no improvement in O2 requirements, will obtain CXR later today. FULL CODE DVTP: ALPS Mild pain pathway Problem List: 1. Traumatic perinephric hematoma of left kidney Pain Ratin Pain Location: Left abdomen Pain Goal: Pain 4 or less Pain Plan: PO dilaud 2mg Q4P for severe pain, 1 tab percocet Q4P for moderate pain. Tomorrow's Labs & Rationales: CBC (monitor H&H in setting of acute subcapsular hematoma).
--- NOTE | 2016-07-30 07:51 | Discharge Summary ---
See Addendum Visit Information Visit Dates Admission Date: 07/24/16 Discharge Date: 08/03/16 Hospital Course Course Attending Physician: Dr. Liu Primary Care Physician: ABDULLAHI MUNOZ MD Consulting Request: 1 Consulting Specialty: Cardiology Consulting Request: 2 Consulting Specialty: Urology Hospital Course: This is a 70-year-old gentleman with past medical history significant for hypertension, CAD that is post inferior wall DC (December 2002), moderate/severe aortic stenosis (recently underwent surgery which was accompanied by placement of 2 bypass grafts; also had postoperative atrial fibrillation), , mitral valve replacement in May 2014 (bovine), history of open cholecystectomy at the [facility] which was complicated by bleeding and infection, Significant sleep apnea, hyperlipidemia, GERD, multiple previous nephrolithiasis status post ESWL (most recently 07/24/[address] Pavon). Patient went home after the procedure and took his daily medications which included aspirin. Apparently this procedure was done as an urgent procedure and patient did not hold his aspirin prior to procedure and was taking full dose aspirin. He presented to the emergency department with complaints of abdominal pain and left flank pain and was found to have subcapsular hematoma with retroperitoneal extension on left side. The patient was initially admitted to [facility] for closer monitoring. His hemoglobin remained stable and his pain was well controlled. Aspirin was held. He was transferred to the floor. On 07/26/2016, he was found to have severe prolonged chest discomfort radiating to his back was also associated with nausea, diaphoresis, minor shortness of breath and lightheadedness. He had elevated troponins consistent with type II DC. He also had deep precordial T-wave inversions on his EKG which was consistent with ischemia. His last echo showed a low normal EF of 50-55% with mild LVH and paradoxical septal motion consistent with a post-operative state. The left atrium normal in size. Trace MR and TR noted. Following problems were addressed during the course of his hospital stay: #Left-sided pain Pain located on the left flank and lower abdominal quadrant area. Most likely secondary to post procedural inflammation and subcapsular right renal hematoma. Symptomatic relief of pain (1 tab percocet Q4P for mdoerate pain and hydromorphone increased to 4mg PO Q4P for severe pain). #Left renal Subcapsular hematoma Acute blood loss anemia secondary to post-procedural complication and active aspirin 321 mg use. Currently H&H stable and patient is hemodyncamically stable. CBC trended with plan to transfuse if <8 . Urology was consulted who suggested to NOT restart ASA currently and continue with conservative management of subcapsular hematoma for now. Continue bowel regimen. #History of hypertension, hyperlipidemia Antihypertensives initially held 2/2 borderline low BP and concern for active bleeding. BP now stable. He was maintained on metoprolol 50 mg PO BID, nitro patch 0.4 mg/ hr for 12 h/day and gemfibrozil 600 mg PO BID, lipitor 80 mg PO, zetia 10 mg PO. #History of elevated uric acid level Likely contributing to patient's recurrent nephrolithiasis. Was maintained on allopurinol daily. #History of CAD Consider resuming ASA once urology clears patient and no further drop in H&H; urology suggested NOT to restart ASA. Was maintained on ezetimibe and atorvastatin. # History of hypothyroidism Was maintained on levothyroxine. # History of BPH Was maintained on tamsulosin. #Chest pain Likely type 2 DC in setting of physiologic stress (anemia) and recent discontinuation of ASA. Troponins peaked at 0.21, have since trended down, and T wave inversion precordial leads noted. Cardio consult placed and appreciated. Echocardiogram showed normal EF to 70%, mild LVH, trace TR, normally seated/functioning bioprosthetic aortic valve with mild stenosis. Hold off ASA for now, resume once risk of bleeding low. Continue current cardiac regimen. Patient to be taken off of tele today. #Increased O2 requirements At home, patient only uses CPAP at night without day time oxygen. Patient has been titrated off of nasal cannula and currently saturating well on room air. However, this AM he was noted to have decreased breath sounds left lung base. He was maintained on incentive Spirometry. Respiratory status was monitored closely , he received supplemental O2 as needed for O2 sat >92%. CXR (PA and lateral) ordered for today(07/31/16)which showed: Decrease in lung volumes with bilateral platelike atelectasis seen in both lung bases. No definite dense consolidation seen to suspect pneumonia. Small left-sided pleural effusion is now noted, new. Mild gaseous distention of bowel loops in the abdomen with scattered air-fluid levels. Findings are nonspecific. Clinical correlation requested. Patient is should c/w incentive spirometry for atelectasis. We believe new left- sided pleural effusion is reactive to retropretoneal bleed and bowel loop distention is 2/2 pain medications. Patient should be maintained on aggressive bowel regimen. FULL CODE DVT PPX: ALPS Complications: None Allergies: Coded Allergies: NO KNOWN ALLERGIES (07/24/16) Significant Procedures: CAT - CT ABD & PELVIS W/O IV CONTRAS IMPRESSION: 1. Redemonstrated large left renal subcapsular hematoma, similar in appearance to 07/24/2016. However, there is mildly increased fluid tracking within the retroperitoneum compared to prior, left greater than right, suspicious for blood products. 2. Bibasilar pulmonary opacities may reflect atelectasis and/or consolidation. Trace pleural effusions. 3. Small calcification along the distal common bile duct, which may reflect choledocholithiasis. Pertinent Lab Results: Laboratory Tests 07/31/16 0745: CBC w Diff NO MAN DIFF REQ, RBC 2.99 L, MCV 87.6, MCH 29.9, RDW 15.0 H, MPV 6.7 L, Gran % 70.1, Lymphocytes % 13.3 L, Monocytes % 14.9 H, Eosinophils % 1.3, Basophils % 0.4, Absolute Granulocytes 5.0, Absolute Lymphocytes 0.9 L, Absolute Monocytes 1.1 H, Absolute Eosinophils 0.1, Absolute Basophils 0, PUBS MCHC 34.1 07/30/16 0614: CBC w Diff NO MAN DIFF REQ, RBC 2.72 L, MCV 88.5, MCH 30.0, RDW 14.8 H, MPV 7.1 L, Gran % 71.1, Lymphocytes % 13.8 L, Monocytes % 12.9 H, Eosinophils % 1.6, Basophils % 0.6, Absolute Granulocytes 5.6, Absolute Lymphocytes 1.1 L, Absolute Monocytes 1.0 H, Absolute Eosinophils 0.1, Absolute Basophils 0, PUBS MCHC 33.9 Disposition Summary Disposition Principal Diagnosis: ESWL with resultant subcapsular hematoma and retroperitoneal bleed Acute blood loss anemia. Chest pain with abnormal troponin secondary to demand ischemia. Right flank pain Additional Diagnosis: Hypertension. Dyslipidemia. Mitral valve replacement History of multiple nephrolithiasis. Coronary artery disease. Hypothyroidism. Benign prostatic hypertrophy. Discharge Disposition: SNF Discharge Instructions General Discharge Information Code Status: Full Code Patient's Diet: Cardiac Patient's Activity: As tolerated. Follow-Up Instructions/Appts: Please follow up with your PCP within 7 days of discharge from [facility]. Please address Abdomen CT finding of possible choledocholithiasis with your PCP for further work up. Please follow up with Dr. Pavon within 7 days to discuss when to restart aspirin and for continued management of your subcapsular hematoma. Please follow up with Dr. Allison within 7 days for continued cardiac management. Please take all meds as directed. Please have a CBC on 08/03/16, to monitor blood count. Medications at Discharge Discharge Medications: Stop taking the following medications: Losartan/Hydrochlorothiazide (Losartan-Hctz 50-12.5 MG Tab) 50 MG-12.5 MG TABLET ORAL DAILY Continue taking these medications: Memantine HCl (Namenda XR) 28 MG CAP.SPR.24 1 Capsule ORAL DAILY Comments: Last Taken: 08/01/16 Time: 1000 Docusate Sodium (Colace) 100 MG CAPSULE 1 Capsule ORAL DAILY Comments: Last Taken: 08/03/16 Time: 10:00 AM Prednisolone Acetate (Omnipred) 1 % DROPS.SUSP 1 Drop In the eye DAILY Comments: Last Taken: 08/03/16 Time: 10:00 AM Lactose-Reduced Food (Ensure Liquid) 237 ML LIQUID 1 Can ORAL DAILY as needed for NUTRITIONAL SUPPLEMENT Comments: NOT GIVEN IN HOSPITAL Allopurinol (Allopurinol) 300 MG TABLET 300 Milligram ORAL Every Day Comments: Last Taken: 08/03/16 Time: 10:00 AM Levothyroxine Sodium (Levothyroxine Sodium) 137 MCG TABLET 137 Microgram ORAL Every Morning Comments: Last Taken: 08/03/16 Time: 7:00 AM Omeprazole (Omeprazole) 40 MG CAPSULE.DR 40 Milligram ORAL Every Day Comments: Last Taken: 08/03/16 Time: 7:00 AM Ezetimibe (Zetia) 10 MG TABLET 10 Milligram ORAL Every Day Comments: Last Taken: 08/03/16 Time: 10:00 AM Tamsulosin HCl (Flomax) 0.4 MG CAP.ER.24H 0.4 Milligram ORAL Every night Comments: Last Taken: 08/02/16 Time: 9:30 PM Rosuvastatin Calcium (Crestor) 20 MG TABLET 20 Milligram ORAL Every Day Comments: NOT GIVEN IN HOSPITAL Ferrous Sulfate (Ferrous Sulfate) 325 MG (65 MG IRON) TABLET 325 Milligram ORAL TWICE DAILY Comments: Last Taken: 08/03/16 Time: 10:00 AM Alprostadil (Caverject) 20 MCG KIT 20 Microgram Route NEEDED as needed for ERECTILE DYSFUNCTION Instructions: INTRACAVERNOSAL Comments: NOT GIVEN IN HOSPITAL Fluticasone Propionate (Fluticasone Propionate) 50 MCG/ACTUATION SPRAY.SUSP 2 [place] Both sides of nose DAILY Comments: Last Taken: 08/03/16 Time: 1000 Sildenafil Citrate (Viagra) 100 MG TABLET 1 Tablet ORAL DAILY NEEDED Instructions: 1 hour before sexual activity Comments: NOT GIVEN IN HOSPITAL Memantine HCl (Namenda XR) 28 MG CAP.SPR.24 1 Capsule ORAL DAILY Comments: Last Taken: 08/03/16 Time: 10:00 AM Start taking the following new medications: Gemfibrozil (Lopid) 600 MG TABLET 600 Milligram ORAL TWICE DAILY Qty = 60 No Refills Comments: Last Taken: 08/03/16 Time: 10:00 AM Nitroglycerin (Nitroglycerin Patch) 0.4 MG/HOUR PATCH.TD24 0.4 Milligram On the skin DAILY Qty = 30 No Refills Comments: Last Taken: 08/03/16 Time: 10:00 AM Metoprolol Succinate (Metoprolol Succinate) 25 MG TAB 75 Milligram ORAL TWICE DAILY Qty = 120 No Refills Comments: Last Taken: 08/03/16 Time: 10:00 AM Polyethylene Glycol 3350 (Miralax) 17 GRAM POWD.PACK 1 Packet ORAL DAILY as needed for CONSTIPATION Qty = 2 No Refills Instructions: dissolve in water Comments: Last Taken: 08/02/16 Time: 10:00 AM Magnesium Hydroxide (Milk Of Magnesia) 400 MG/5 ML ORAL.SUSP 5 Milliliters ORAL TWICE DAILY as needed for CONSTIPATION Qty = 70 No Refills Comments: NOT GIVEN IN HOSPITAL Hydromorphone HCl (Dilaudid) 4 MG TABLET 1 Tablet ORAL 4 times daily as needed as needed for Severe pain 7-10 Qty = 12 No Refills Comments: Last Taken: 08/03/16 Time: 7:00 AM Guaifenesin (Mucinex) 600 MG TAB.ER.12H 1 Tablet ORAL TWICE DAILY as needed for Congestion Qty = 20 No Refills Comments: Last Taken: 08/03/16 Time: 7:00 AM Copies To: JEANNE GARCIA,ALLY; JOSIAH GARCIA PhD,EARNEST Dior Attending MD Review Statement Documenting Attending: TREVIN LIU M.D Other Findings: I have reviewed the discharge summary.
[2016-07-30 08:09] LABS: ABSOLUTE BASOPHIL COUNT 0 /CUMM (0.0-0.2); ABSOLUTE EOSINOPHIL COUNT 0.1 /CUMM (0.0-0.7); ABSOLUTE GRANULOCYTE CT 5.6 /CUMM (1.4-6.5); ABSOLUTE LYMPH COUNT 1.1 /CUMM (1.2-3.4); BASOPHIL % 0.6 % (0.0-2.0); EOSINOPHIL % 1.6 % (0-5); GRANULOCYTE % 71.1 % (42.2-75.2); HEMATOCRIT 24.1 % (42-52); MEAN CORPUSCULAR HGB CONC 33.9 G/DL (33.0-37.0); MEAN CORPUSCULAR VOLUME 88.5 FL (80.0-94.0); MEAN PLATELET VOLUME 7.1 FL (7.4-10.4); PLATELET COUNT 236 /CUMM (130-400); RBC DISTRIBUTION WIDTH 14.8 % (11.5-14.5); RED BLOOD CELL CT 2.72 /CUMM (4.70-6.10); WHITE BLOOD CELL COUNT 7.8 /CUMM (4.8-10.8)
[2016-07-30 08:27] VITALS: BP 144/82
--- NOTE | 2016-07-30 10:43 | PN- Cardiology ---
Subjective Subjective: * Patient continues to note left upper quadrant abdominal pain and occasional left chest discomfort. No shortness of breath. * H/H remains low. Objective Vital Signs and I&Os Vital Signs Date Time Temp Pulse Resp B/P Pulse O2 O2 Flow FiO2 Ox Delivery Rate 07/30 0827 98.1 96 20 144/82 93 Nasal 5.0L Cannula 07/30 0037 80 94 07/30 0000 Nasal 2.0L Cannula 07/29 2200 98.9 99 20 150/80 95 Nasal 2.0L Cannula 07/29 2103 99 150/80 07/29 210 99 150/80 07/29 1600 94 Nasal 2.0L Cannula 07/29 1542 98.0 89 17 135/67 93 Room Air 07/29 1054 102 143/74 Intake & Output 07/30 1600 07/30 0800 07/30 0000 07/29 1600 07/29 0807/29 0000 Intake Total 200 200 480 485 480 Output Total 400 370 502 032 4466 Balance -200 -170 80 -65 -1145 Intake, IV 5 Intake, Oral 200 200 480 480 480 Number 1 Bowel Movements Output, Urine 400 370 387 136 4783 Physical Exam: General: WD/ WN male in NAD; alert and oriented x 3 Neck: no JVD, no carotid bruit Heart RRR with 3/6 systolic murmur Lungs: decreased breath sounds at left base Abdomen: soft, mildly tender, +ve bowel sounds Extremities: no edema Assessment/Plan Assessment/Plan * Js has experienced a type 2 GA in the setting of pain, physiologic stress related to anemia and the discontinuation of his cardiac medications. This GA has manifested as chest discomfort and diffuse precordial T wave inversions along with elevated cardiac enzymes. He does continue to complain of chest discomfort which is worse with ambulation but it is difficult to know if this discomfort is related to his hematoma. We will plan on risk stratification with a stress test as an outpatient. In the meantime we will pursue medical therapy especially since this patient will be a poor candidate for anticoagulation if PCI is indeed needed. * Continue metoprolol at 50mg PO BID. Change NTG to a patch at 0.4mg/hr for 12 hours daily. Continue his statin and gemfibrozil 600mg BID. Continue telemetry? Yes
--- NOTE | 2016-07-30 11:38 | PN- Urology ---
Surgical Brief Attending Note Brief Attending Note: Pt with recent L renal ESWL. Admitted with L subcapsular hematoma. Hct has been decreasing but seems to have stabilized over the last 2 days. Would continue conservative management and hold ASA. Will inform Dr Pavon, his usual urologist.
[2016-07-30 16:30] VITALS: BP 148/58
[2016-07-31 00:05] VITALS: BP 128/70
--- NOTE | 2016-07-31 07:01 | PN- Housestaff ---
See Addendum Subjective Follow-up For: Intractable left flank pain Large left subcapsular renal hematoma Type 2 SD Tele-Events Since Last Visit: Sinus rhythm- sinus tachycardia, HR 85-104, no overnight events. Subjective: Patient seen and examined at bedside this AM. He is frustrated as he believes his pain is not being adeuqately addressed; when he asks for pain medication he reports that it takes about 30 minutes to process his request. Of note, patient received 2 1mg IV dilaudid injections, one at 8 pm and one at 1 am in addition to his PRN 2mg PO dilaudid. Nursing is made aware and patient made aware that more of an effort will be made to address this pain. Review of Systems Constitutional: Denies: chills, fever. EENTM: Denies: visual changes, nasal congestion. Cardiovascular: Denies: chest pain, palpitations. Respiratory: Denies: cough, short of breath. Gastrointestinal: Reports: abdominal pain. Denies: constipation, diarrhea, vomiting. Genitourinary: Reports: hematuria (Occasional). Denies: dysuria. Musculoskeletal: Reports: back pain. Skin: Denies: rash. Neurological/Psychological: Denies: confusion, headache. Hematologic/Endocrine: Denies: bruising, bleeding. Immunologic/Allergic: Denies: splenectomy. Objective Last 24 Hrs of Vital Signs/I&O Vital Signs Date Time Temp Pulse Resp B/P Pulse O2 O2 Flow FiO2 Ox Delivery Rate 07/31 0108 84 94 07/31 0005 99.5 101 20 128/70 92 07/31 0000 95 Nasal 2.0L Cannula 07/30 2256 90 148/58 07/30 2256 90 148/58 07/30 1630 99.1 90 18 148/58 95 Nasal 3.0L Cannula 07/30 1457 Nasal 5.0L Cannula 07/30 1449 Nasal 5.0L Cannula 07/30 1342 Nasal 5.0L Cannula 07/30 1050 108 136/80 07/30 0827 98.1 96 20 144/82 93 Nasal 5.0L Cannula 07/30 0800 Nasal 2.0L Cannula Intake & Output 07/31 0800 07/31 0000 07/30 1600 Intake Total 750 Output Total 300 350 450 Balance -300 400 -450 Intake, Oral 750 Number 1 Bowel Movements Output, Urine 300 350 450 Physical Exam General Appearance: Alert, Oriented X3, Cooperative, No Acute Distress Skin: No Rashes, No Significant Lesion HEENT: Atraumatic, PERRLA, EOMI, Mucous Membr. moist/pink Neck: Supple, +2 Carotid Pulse wo Bruit Lymphatic: Cervical nl Cardiovascular: Regular Rate, Normal S1, Normal S2 Lungs: Normal Air Movement, Decreased breath sounds left lung base Abdomen: Normal Bowel Sounds, tenderness to palpation of LUQ, LLQ and left flank. Neurological: Normal Speech, Normal Tone Extremities: No Clubbing, No Cyanosis Vascular: Pulses Symmetrical Current Medications: Current Medications Sig/Geri Start time Last Medication Dose Route Stop Time Status Admin Allopurinol 300 MG DAILY 07/25 1200 AC 07/30 PO 1050 Atorvastatin Calcium 80 MG 1700 07/25 1700 AC 07/30 PO 1645 Bisacodyl 10 MG DAILY 07/27 1000 AC 07/30 PO 1050 Docusate Sodium 100 MG DAILY 07/25 1000 AC 07/30 PO 1050 Ezetimibe 10 MG DAILY 07/25 1000 AC 07/30 PO 1050 Ferrous Sulfate 325 MG BID 07/25 1000 AC 07/30 PO 2256 Fluticasone 2 SPRAY DAILY 07/25 1202 AC 07/30 Propionate JEF 1053 Gemfibrozil 600 MG BID 07/27 1000 AC 07/30 PO 2256 Hydromorphone HCl 4 MG Q4P PRN 07/31 0745 AC 07/31 PO 0749 Hydromorphone HCl 1 MG ONCE ONE 07/31 0100 DC 07/31 IV 07/31 0101 0100 Hydromorphone HCl 1 MG ONCE ONE 07/30 1900 DC 07/30 IV 07/30 1901 1945 Hydromorphone HCl 2 MG Q4P PRN 07/30 0845 DC 07/31 PO 0004 Hydromorphone HCl 2 MG Q4P PRN 07/29 1615 DC 07/30 IV 0637 Levothyroxine Sodium 0.137 MG DAILY AC 07/25 1000 AC 07/31 PO 0656 Memantine 10 MG BID 07/25 1000 AC 07/30 PO 2256 Metoprolol Tartrate 50 MG BID 07/27 1000 AC 07/30 PO 2256 Morphine Sulfate 2 MG Q4P PRN 07/26 1515 DC 07/27 IV 1837 Nitroglycerin 0.4 MG DAILY 07/30 1130 AC 07/30 TOP 1645 Nitroglycerin 0.5 GM Q6 07/27 1200 DC 07/30 TOP 0619 Omeprazole 40 MG DAILY AC 07/25 0933 AC 07/31 PO 0656 Ondansetron HCl 4 MG Q8P PRN 07/24 2345 AC 07/25 IV 1308 Oxycodone/ 1 TAB Q4P PRN 07/29 1615 AC Acetaminophen PO Polyethylene Glycol 17 GM DAILY 07/27 1000 AC 07/30 PO 1052 Prednisolone 1 GTT DAILY 07/25 1000 AC 07/30 OPH 1053 Senna 187 MG AT BEDTIME 07/27 2200 AC 07/30 PO 2257 Tamsulosin HCl 0.4 MG QPM 07/25 2200 AC 07/30 PO 2256 Last 24 Hrs of Lab/Gregory Results Last 24 Hrs of Labs/Mics: Laboratory Tests 07/31/16 0745: CBC w Diff Pending, WBC Pending, RBC Pending, Hgb Pending, Hct Pending, MCV Pending, MCH Pending, RDW Pending, Plt Count Pending, MPV Pending, PUBS MCHC Pending Orders ECHO Findings: CONCLUSIONS 1. Normal EF of 70%. 2. Mild left ventricular hypertrophy. 3. Trace tricuspid regurgitation. 4. Normally seated and functioning bioprosthetic aortic valve with mild stenosis. Miscellaneous Findings: Abdominal/pelvis CT: IMPRESSION: 1. Redemonstrated large left renal subcapsular hematoma, similar in appearance to 07/24/2016. However, there is mildly increased fluid tracking within the retroperitoneum compared to prior, left greater than right, suspicious for blood products. 2. Bibasilar pulmonary opacities may reflect atelectasis and/or consolidation. Trace pleural effusions. 3. Small calcification along the distal common bile duct, which may reflect choledocholithiasis. Assessment/Plan Assessment: Mr. Soriano is a very pleasant 70-year-old gentleman with a past medical history of hypertension, HCV, GERD, hyperlipidemia, dyspepsia, mitral valve replacement in May 2014 (bovine) and a history of multiple nephrolithiasis who presented to the ED with left abdominal/flank pain the same day after he had lithotripsy ESWL procedure by Dr. Pavon. Patient was found to have urological evidence of left renal subscapular hematoma with extension to the retroperitoneum. Assessment and plan #Left-sided pain Pain located on the left flank and lower abdominal quadrant area. This is more likely secondary to post procedural inflammation and subcapsular right renal hematoma. Plan Symptomatic relief of pain (1 tab percocet Q4P for mdoerate pain and hydromorphone increased to 4mg PO Q4P for severe pain). Emphasized that patient needs to request medication from nurse to receive it. #Right renal Subcapsular hematoma Acute blood loss anemia secondary to post-procedural complication and active aspirin 321 mg use. Currently H&H stable and patient is hemodyncamically stable. Plan Will trend CBC daily, currently at lower end of normal to 8.1, will transfuse if <8 (consent form signed, type and screen sent) We have reconsulted Dr. Pavon (urology) and Dr. Lino has consulted; he suggested to NOT restart ASA currently and continue with conservative management of subcapsular hematoma for now. Continue standing dose of bowel regimen (miralax, senna, colace). #History of hypertension, hyperlipidemia Antihypertensives initially held 2/2 borderline low BP and concern for active bleeding. BP now stable. Plan Continue metoprolol 50 mg PO BID, nitro patch 0.4 mg/hr for 12 h/day. Continue gemfibrozil 600 mg PO BID, lipitor 80 mg PO, zetia 10 mg PO. #History of elevated uric acid level Likely contributing to patient's recurrent nephrolithiasis. Plan Continue allopurinol daily. #History of CAD Consider resuming ASA once urology clears patient and no further drop in H&H. Continue ezetimibe. Continue atorvastatin 80 mg. # History of hypothyroidism Continue levothyroxine. # History of BPH Continue tamsulosin. #Chest pain Likely type 2 SD in setting of physiologic stress (anemia) and recent discontinuation of ASA. Troponins peaked at 0.21, have since trended down, and T wave inversion precordial leads noted. Plan Cardio consult placed and appreciated, continue telemetry monitoring for now. Echocardiogram showed normal EF to 70%, mild LVH, trace TR, normally seated/ functioning bioprosthetic aortic valve with mild stenosis. Hold off ASA for now, resume once risk of bleeding low. Continue current cardiac regimen. Patient to be taken off of tele today. #Increased O2 requirements At home, patient only uses CPAP at night without day time oxygen. Patient has been titrated off of nasal cannula and currently saturating well on room air. However, this AM he was noted to have decreased breath sounds left lung base. Plan Continue incentive Spirometry. Monitor respiratory status closely and provide supplemental O2 as needed for O2 sat >92%. CXR (PA and lateral) ordered for today, f/u results. FULL CODE DVTP: ALPS Mild pain pathway Problem List: 1. Traumatic perinephric hematoma of left kidney 2. Acute blood loss as cause of postoperative anemia 3. Elevated troponin Pain Ratin Pain Location: Left abdomen/flank Pain Goal: Pain 7 or less Pain Plan: 4 mg PO dilaudid Q4P for severe pain, 1 tab percocet Q4P for moderate pain. Tomorrow's Labs & Rationales: CBC (active bleeding, monitor H&H), BEP (hyponatremia on previous draw) Consulting Request: Consulting Specialty: Urology
[2016-07-31 08:05] VITALS: BP 160/78
--- NOTE | 2016-07-31 08:17 | PN- Urology ---
Surgical Brief Attending Note Brief Attending Note: Pt hemodynamically stable. Iand O adequate. Repeat CT reviewed with no significant changes. H/H slowly driffing down. Would NOT transfuse unless meets criteria. Again, best plan is for pain management and improve mobility.
--- NOTE | 2016-07-31 08:24 | PN- Cardiology ---
Subjective Subjective: * Patient continues to report left upper quadrant discomfort. No chest pain or shortness of breath. * Stable NSR * H/H pending Objective Vital Signs and I&Os Vital Signs Date Time Temp Pulse Resp B/P Pulse O2 O2 Flow FiO2 Ox Delivery Rate 07/31 0805 99.3 98 20 160/78 91 Room Air 07/31 0108 84 94 07/31 0005 99.5 101 20 128/70 92 07/31 0000 95 Nasal 2.0L Cannula 07/30 2256 90 148/58 07/30 2256 90 148/58 07/30 1630 99.1 90 18 148/58 95 Nasal 3.0L Cannula 07/30 1457 Nasal 5.0L Cannula 07/30 1449 Nasal 5.0L Cannula 07/30 1342 Nasal 5.0L Cannula 07/30 1050 108 136/80 07/30 0827 98.1 96 20 144/82 93 Nasal 5.0L Cannula Intake & Output 07/31 1600 07/31 0800 07/31 0000 07/30 1600 07/30 0800 07/30 0000 Intake Total 540 750 200 200 Output Total 1000 350 450 400 370 Balance -460 400 -450 -200 -170 Intake, Oral 540 750 200 200 Number 1 Bowel Movements Output, Urine 1000 350 450 400 370 Physical Exam: General: WD/ WN male in NAD; alert and oriented x 3 Neck: no JVD, no carotid bruit Heart RRR with 3/6 systolic murmur Lungs: decreased breath sounds at left base Abdomen: soft, mildly tender, +ve bowel sounds Extremities: no edema Assessment/Plan Assessment/Plan * Js has experienced a type 2 TX in the setting of pain, physiologic stress related to anemia and the discontinuation of his cardiac medications. This TX has manifested as chest discomfort and diffuse precordial T wave inversions along with elevated cardiac enzymes. He does continue to complain of chest discomfort which is worse with ambulation but it is difficult to know if this discomfort is related to his hematoma. We will plan on risk stratification with a stress test as an outpatient. In the meantime we will pursue medical therapy especially since this patient will be a poor candidate for anticoagulation if PCI is indeed needed. * Continue metoprolol at 50mg PO BID. Change NTG to a patch at 0.4mg/hr for 12 hours daily. Continue his statin and gemfibrozil 600mg BID. * Slightly decreased breath sounds at left base. Obtain a chest X-ray. * Okay to DC telemetry. Continue telemetry? No
[2016-07-31 08:31] LABS: ABSOLUTE BASOPHIL COUNT 0 /CUMM (0.0-0.2); ABSOLUTE EOSINOPHIL COUNT 0.1 /CUMM (0.0-0.7); ABSOLUTE LYMPH COUNT 0.9 /CUMM (1.2-3.4); ABSOLUTE MONOCYTE COUNT 1.1 /CUMM (0.10-0.60); BASOPHIL % 0.4 % (0.0-2.0); EOSINOPHIL % 1.3 % (0-5); GRANULOCYTE % 70.1 % (42.2-75.2); HEMATOCRIT 26.2 % (42-52); MEAN CORPUSCULAR HGB 29.9 PG (27.0-31.0); MEAN CORPUSCULAR HGB CONC 34.1 G/DL (33.0-37.0); MEAN CORPUSCULAR VOLUME 87.6 FL (80.0-94.0); MEAN PLATELET VOLUME 6.7 FL (7.4-10.4); PLATELET COUNT 272 /CUMM (130-400); RED BLOOD CELL CT 2.99 /CUMM (4.70-6.10); WHITE BLOOD CELL COUNT 7.1 /CUMM (4.8-10.8)
[2016-07-31] MEDS ORDERED: NITROGLYCERIN1 EACH TOP (08:41)
[2016-07-31] MEDS ORDERED: LOPID600 MG PO (08:41)
[2016-07-31] MEDS ORDERED: DILAUDID4 M1 PO (08:46)
--- NOTE | 2016-07-31 08:52 | Patient Discharge Instructions ---
See Addendum Discharge Instructions General Discharge Information You were seen/treated for: ESWL with resultant subcapsular hematoma and retroperitoneal bleed Chest pain with type 2 NH (demand ischemia) Hypertension, hyperlipidemia Special Instructions: Please follow up with your PCP within 7 days of discharge from [facility]. Please follow up with Dr. Pavon within 7 days to discuss when to restart aspirin and for continued management of your subcapsular hematoma. Please follow up with Dr. Allison within 7 days for continued cardiac management. Please take all meds as directed. Please have a CBC on 08/03/16, to monitor blood count. Diet Recommended Diet: Heart Healthy Activity Activity Self Limited: Yes Acute Coronary Syndrome Inclusion Criteria At DC or during hospital stay patient has or had the following: ACS DIAGNOSIS No Discharge Core Measures Meds if any: Prescribed or Continued at Discharge Meds if any: NOT Prescribed or Continued at Discharge Congestive Heart Failure Inclusion Criteria At DC or during hospital stay patient has or had the following: CHF DIAGNOSIS No Discharge Core Measures Meds if any: Prescribed or Continued at Discharge Meds if any: NOT Prescribed or Continued at Discharge Cerebrovascular accident Inclusion Criteria At DC or during hospital stay patient has or had the following: CVA/TIA Diagnosis No Discharge Core Measures Meds if any: Prescribed or Continued at Discharge Meds if any: NOT Prescribed or Continued at Discharge Venous thromboembolism Inclusion Criteria VTE Diagnosis No VTE Type NONE VTE Confirmed by (Test) NONE Discharge Core Measures - Per Current guidelines, there needs to be overlap - treatment for the first 5 days of Warfarin therapy. - If discharged on Warfarin prior to 5 days of - overlap therapy, the patient will need to be - assessed for post discharge needs including - *Post discharge parental anticoagulation - *Warfarin and/or parental anticoagulation education - *Follow up date to check INR post discharge At least 5 days overlap therapy as Inpatient No Meds if any: Prescribed or Continued at Discharge Note: Overlap Therapy is Warfarin and Anticoagulant Meds if any: NOT Prescribed or Continued at Discharge
--- NOTE | 2016-07-31 12:53 | RADIOLOGY REPORT ---
EXAMINATION: XR CHEST CLINICAL INFORMATION: Decreased breath sounds in the left lung base. Presumptive diagnosis of pneumonia versus atelectasis. COMPARISON: Several prior chest x-rays, most recent of which is dated 01/20/2016. CTA of the chest dated 07/24/2016. TECHNIQUE: AP semierect and lateral views of the chest were obtained. FINDINGS: The patient is status post median sternotomy and aortic valve replacement and CABG surgery. The cardiomediastinal silhouette is borderline enlarged. Compared to prior exams, lower lung volumes are seen with bandlike areas of opacity in both lung bases now seen, most consistent with subsegmental atelectasis. There is also blunting of the posterior left CP angle, consistent with a small pleural effusion. No evidence of pulmonary edema or pneumothorax. Bony structures grossly unremarkable. Several gas-distended loops of bowel are seen in the upper abdomen with scattered air-fluid levels partially included. IMPRESSION: 1. Decrease in lung volumes with bilateral platelike atelectasis seen in both lung bases. 2. No definite dense consolidation seen to suspect pneumonia. 3. Small left-sided pleural effusion is now noted, new. 4. Mild gaseous distention of bowel loops in the abdomen with scattered air-fluid levels. Findings are nonspecific. Clinical correlation requested.
[2016-07-31] MEDS ORDERED: MILK OF MA400 MG/52 PO (14:23)
[2016-07-31] MEDS ORDERED: MIRALAX17 G1 PO (14:23)
[2016-07-31 16:39] VITALS: BP 154/77
[2016-08-01 00:25] VITALS: BP 122/70
--- NOTE | 2016-08-01 07:03 | PN- Housestaff ---
See Addendum Subjective Follow-up For: Intractable left flank pain Large left subcapsular renal hematoma Type 2 [place] Tele-Events Since Last Visit: Off tele. Subjective: Patient seen and examined at bedside this AM. He reports his pain is persistent but his respiratory status is back to baseline and he is breathing well on room air. Patient denies any melena or hematuria. Patient did endorse chest pain on ambulation this AM and EKG was done at that time that showed no ST changes and old T wave inversion in V3. Review of Systems Constitutional: Reports: malaise. Denies: chills, fever. EENTM: Denies: blurred vision, visual changes, hearing changes, nasal congestion. Cardiovascular: Denies: chest pain, palpitations. Respiratory: Denies: short of breath, sputum production. Gastrointestinal: Reports: abdominal pain. Denies: constipation, diarrhea, distention, nausea, vomiting. Genitourinary: Denies: hematuria. Musculoskeletal: Reports: muscle pain (Left flank). Denies: neck pain. Skin: Denies: rash. Neurological/Psychological: Denies: confusion, headache. Hematologic/Endocrine: Denies: bruising, bleeding. Objective Last 24 Hrs of Vital Signs/I&O Vital Signs Date Time Temp Pulse Resp B/P Pulse O2 O2 Flow FiO2 Ox Delivery Rate 08/01 0811 98.4 92 18 128/72 94 Nasal 2.0L Cannula 08/01 0032 86 96 08/01 0025 98.0 89 20 122/70 95 Room Air 07/31 2223 87 97 07/31 2115 101 160/80 07/31 2115 101 160/80 07/31 1639 98.5 97 16 154/77 91 Room Air 07/31 1031 98 160/78 Intake & Output 08/01 1600 08/01 0800 08/01 0000 Intake Total 130 200 Output Total 400 Balance 130 -200 Intake, IV 10 Intake, Oral 120 200 Output, Urine 400 Physical Exam General Appearance: Alert, Oriented X3, Cooperative, No Acute Distress Skin: No Rashes, No Significant Lesion HEENT: Atraumatic, PERRLA, EOMI, Mucous Membr. moist/pink Neck: Supple, No JVD, +2 Carotid Pulse wo Bruit Lymphatic: Cervical nl Cardiovascular: Regular Rate, Normal S1, Normal S2 Lungs: Normal Air Movement Abdomen: Normal Bowel Sounds, Soft, Tenderness to palpation of left upper quadrant, left lower quadrant, left flank Neurological: Normal Speech, Strength at 5/5 X4 Ext, Normal Tone Extremities: No Clubbing, No Cyanosis, No Edema Current Medications: Current Medications Sig/Geri Start time Last Medication Dose Route Stop Time Status Admin Allopurinol 300 MG DAILY 07/25 1200 AC 07/31 PO 1029 Atorvastatin Calcium 80 MG 1700 07/25 1700 AC 07/31 PO 1625 Bisacodyl 10 MG DAILY 07/27 1000 AC 07/31 PO 1028 Docusate Sodium 100 MG DAILY 07/25 1000 AC 07/31 PO 1028 Ezetimibe 10 MG DAILY 07/25 1000 AC 07/31 PO 1029 Ferrous Sulfate 325 MG BID 07/25 1000 AC 07/31 PO 1028 Fluticasone 2 SPRAY DAILY 07/25 1202 AC 07/31 Propionate JEF 1033 Gemfibrozil 600 MG BID 07/27 1000 AC 07/31 PO 2115 Hydromorphone HCl 4 MG Q4P PRN 07/31 0745 AC 08/01 PO 0623 Levothyroxine Sodium 0.137 MG DAILY AC 07/25 1000 AC 08/01 PO 0624 Memantine 10 MG BID 07/25 1000 AC 07/31 PO 2114 Metoprolol Tartrate 50 MG BID 07/27 1000 AC 07/31 PO 2115 Nitroglycerin 0.4 MG DAILY 07/30 1130 AC 07/31 TOP 1035 Nystatin 5 ML 4 TIMES/DAY 07/31 1400 AC 07/31 PO 2116 Omeprazole 40 MG DAILY AC 07/25 0933 AC 08/01 PO 0623 Ondansetron HCl 4 MG Q8P PRN 07/24 2345 AC 07/25 IV 1308 Oxycodone/ 1 TAB Q4P PRN 07/29 1615 AC Acetaminophen PO Patient Medication 1 ED .STK-MED ONE 07/31 1415 NM Teaching ED 07/31 1416 Polyethylene Glycol 17 GM DAILY 07/27 1000 AC 07/31 PO 1031 Prednisolone 1 GTT DAILY 07/25 1000 AC 07/31 OPH 1034 Senna 187 MG AT BEDTIME 07/27 2200 AC 07/31 PO 2115 Tamsulosin HCl 0.4 MG QPM 07/25 2200 AC 07/31 PO 2115 Last 24 Hrs of Lab/Gregory Results Last 24 Hrs of Labs/Mics: Laboratory Tests 08/01/16 0645: Anion Gap 8, Estimated GFR > 60, BUN/Creatinine Ratio 20.0, CBC w Diff NO MAN DIFF REQ, RBC 2.98 L, MCV 88.0, MCH 29.4, RDW 14.9 H, MPV 6.6 L, Gran % 69.4, Lymphocytes % 13.0 L, Monocytes % 15.0 H, Eosinophils % 2.0, Basophils % 0.6, Absolute Granulocytes 4.6, Absolute Lymphocytes 0.9 L, Absolute Monocytes 1.0 H, Absolute Eosinophils 0.1, Absolute Basophils 0, PUBS MCHC 33.5 Orders ECHO Findings: CONCLUSIONS 1. Normal EF of 70%. 2. Mild left ventricular hypertrophy. 3. Trace tricuspid regurgitation. 4. Normally seated and functioning bioprosthetic aortic valve with mild stenosis. Radiology Findings: IMPRESSION: 1. Decrease in lung volumes with bilateral platelike atelectasis seen in both lung bases. 2. No definite dense consolidation seen to suspect pneumonia. 3. Small left-sided pleural effusion is now noted, new. 4. Mild gaseous distention of bowel loops in the abdomen with scattered air-fluid levels. Findings are nonspecific. Clinical correlation requested. Assessment/Plan Assessment: Mr. Soriano is a very pleasant 70-year-old gentleman with a past medical history of hypertension, HCV, GERD, hyperlipidemia, dyspepsia, mitral valve replacement in May 2014 (bovine) and a history of multiple nephrolithiasis who presented to the ED with left abdominal/flank pain the same day after he had lithotripsy ESWL procedure by Dr. Pavon. Patient was found to have urological evidence of left renal subscapular hematoma with extension to the retroperitoneum. Assessment and plan #Left-sided pain Pain located on the left flank and lower abdominal quadrant area. This is more likely secondary to post procedural inflammation and subcapsular right renal hematoma. Plan Symptomatic relief of pain (1 tab percocet Q4P for mdoerate pain and hydromorphone increased to 4mg PO Q4P for severe pain). Emphasized that patient needs to request medication from nurse to receive it. Will likely discharge patient on dilaudid to control pain and prevent splinting. #Right renal Subcapsular hematoma Acute blood loss anemia secondary to post-procedural complication and active aspirin 321 mg use. Currently H&H stable and patient is hemodyncamically stable. Plan Will trend CBC daily, currently stable at 8.8/26.2, will transfuse if <8 ( consent form signed, type and screen sent) We have reconsulted Dr. Pavon and he suggested to NOT restart ASA and to continue with conservative management of subcapsular hematoma for now. Continue standing dose of bowel regimen (miralax, senna, colace). #History of hypertension, hyperlipidemia Antihypertensives initially held 2/2 borderline low BP and concern for active bleeding. BP now stable. Plan Vital signs Q shift Continue metoprolol 50 mg PO BID, nitro patch 0.4 mg/hr for 12 h/day. Continue gemfibrozil 600 mg PO BID, lipitor 80 mg PO, zetia 10 mg PO. #History of elevated uric acid level Likely contributing to patient's recurrent nephrolithiasis. Plan Continue allopurinol daily. #History of CAD Consider resuming ASA once urology clears patient and no further drop in H&H. Continue ezetimibe. Continue atorvastatin 80 mg. # History of hypothyroidism Continue levothyroxine. # History of BPH Continue tamsulosin. #Chest pain Likely type 2 WA in setting of physiologic stress (anemia) and recent discontinuation of ASA. Troponins peaked at 0.21, have since trended down, and T wave inversion precordial leads noted. Plan Cardio consult placed and appreciated, continue telemetry monitoring for now. Echocardiogram showed normal EF to 70%, mild LVH, trace TR, normally seated/ functioning bioprosthetic aortic valve with mild stenosis. Hold off ASA for now, resume once risk of bleeding low and cleared by urology. Continue current cardiac regimen. Patient to be taken off of tele on 07/31/16. #Increased O2 requirements with respiratory failure At home, patient only uses CPAP at night without day time oxygen. Patient requiresd up to 5 L O2 via NC due to shortness of breath and low oxygen saturations. Patient has been titrated off of nasal cannula and currently saturating well on room air. However, yesterday he was noted to have decreased breath sounds left lung base. Plan Resolved, patient saturating well on room air. Continue incentive Spirometry. Monitor respiratory status closely and provide supplemental O2 as needed for O2 sat >92%. CXR (PA and lateral) yesterday showed small left pleural effusion and plate-like atelectasis. #Discharge planning PT evaluated patient and suggested STR. We will have reevaluation by PT today and if patient continued to ambulate poorly, we will continue bed search with case management. FULL CODE DVTP: ALPS Mild pain pathway Problem List: 1. Traumatic perinephric hematoma of left kidney 2. Acute blood loss as cause of postoperative anemia 3. Elevated troponin Pain Ratin Pain Location: Left-sided abdomen Pain Goal: Pain 7 or less Pain Plan: 4 mg PO dilaudid Q4P for severe pain, 1 tab percocet Q4P for moderate pain. Tomorrow's Labs & Rationales: None. Consulting Request: Consulting Specialty: Urology
[2016-08-01 08:08] LABS: ABSOLUTE BASOPHIL COUNT 0 /CUMM (0.0-0.2); ABSOLUTE EOSINOPHIL COUNT 0.1 /CUMM (0.0-0.7); ABSOLUTE GRANULOCYTE CT 4.6 /CUMM (1.4-6.5); ABSOLUTE LYMPH COUNT 0.9 /CUMM (1.2-3.4); BASOPHIL % 0.6 % (0.0-2.0); GRANULOCYTE % 69.4 % (42.2-75.2); HEMATOCRIT 26.2 % (42-52); MEAN CORPUSCULAR HGB 29.4 PG (27.0-31.0); MEAN CORPUSCULAR HGB CONC 33.5 G/DL (33.0-37.0); MEAN PLATELET VOLUME 6.6 FL (7.4-10.4); PLATELET COUNT 328 /CUMM (130-400); RBC DISTRIBUTION WIDTH 14.9 % (11.5-14.5); RED BLOOD CELL CT 2.98 /CUMM (4.70-6.10); WHITE BLOOD CELL COUNT 6.6 /CUMM (4.8-10.8)
[2016-08-01 08:11] VITALS: BP 128/72
--- NOTE | 2016-08-01 11:47 | NUR ---
1030: PATIENT REPORTED CHEST PAIN TO PHYSICAL THERAPIST WHILE WALKING UP AND DOWN THE STAIRS. I REPORTED THIS TO MD. ARIANNA BRAY; EKG WAS DONE; PATIENT STATES "I ONLY HAVE CHEST PAIN WHILE DOING THE STAIRS, I DO NOT HAVE IT ANYMORE LYING DOWN"; WILL CONTINUE TO MONITOR.
--- NOTE | 2016-08-01 12:14 | PN- Cardiology ---
Subjective Subjective: * Patient complained of chest discomfort with ambulation today. * A left pleural effusion is noted. Objective Vital Signs and I&Os Vital Signs Date Time Temp Pulse Resp B/P Pulse O2 O2 Flow FiO2 Ox Delivery Rate 08/01 1046 92 Room Air 08/01 1002 92 128/72 08/01 0811 98.4 92 18 128/72 94 Nasal 2.0L Cannula 08/01 0800 Nasal 3.0L Cannula 08/01 0032 86 96 08/01 0025 98.0 89 20 122/70 95 Room Air 07/31 2223 87 97 07/31 211 101 160/80 07/31 2114 101 160/80 07/31 1639 98.5 97 16 154/77 91 Room Air Intake & Output 08/01 1600 08/01 0800 08/01 0000 07/31 1600 07/31 0800 07/31 0000 Intake Total 505 660 0804 540 750 Output Total 400 1000 350 Balance 130 -200 1020 -460 400 Intake, IV 10 Intake, Oral 401 496 0972 540 750 Number 1 Bowel Movements Output, Urine 400 1000 350 Physical Exam: General: WD/ WN male in NAD; alert and oriented x 3 Neck: no JVD, no carotid bruit Heart RRR with 3/6 systolic murmur Lungs: decreased breath sounds at left base Abdomen: soft, mildly tender, +ve bowel sounds Extremities: no edema Assessment/Plan Assessment/Plan * Js has experienced a type 2 DE in the setting of pain, physiologic stress related to anemia and the discontinuation of his cardiac medications. This DE has manifested as chest discomfort and diffuse precordial T wave inversions along with elevated cardiac enzymes. He does continue to complain of chest discomfort which is worse with ambulation but it is difficult to know if this discomfort is related to his hematoma. We will plan on risk stratification with a stress test as an outpatient. In the meantime we will pursue medical therapy especially since this patient will be a poor candidate for anticoagulation if PCI is indeed needed. * Increase metoprolol to 75mg BID for better rate control to minimized angina while ambulating. Continue his NTG to a patch at 0.4mg/hr for 12 hours daily. Continue his statin and gemfibrozil 600mg BID. * Slightly decreased breath sounds at left base due to a pleural effusion. * Okay to DC telemetry. Continue telemetry? No
[2016-08-01] MEDS ORDERED: METOPROLOL SUCC25 M1 PO (12:43)
[2016-08-01 15:49] VITALS: BP 138/80
[2016-08-01 23:06] VITALS: BP 138/66
--- NOTE | 2016-08-02 00:01 | NUR ---
THIS RN ATTEMPTED X2 TO PLACE IV REQUESTED BY SHANK ARCHER PERRY WITH NO SUCCESS. INFORMED RN SAMIRA WHO ASSUMED CARE OF PATIENT AT 2300/CHANGE OF SHIFT.
--- NOTE | 2016-08-02 06:41 | PN- Housestaff ---
See Addendum Subjective Follow-up For: Chest pain Subcapsular hematoma, left kidney S/P ESWL Tele-Events Since Last Visit: Off tele. Subjective: Patient seen and examined at bedside this AM. He continues to endorse productive cough that is aggravating his abdominal pain; he is amenable to trying mucinex for this issue. He does report much improvement of the pain with dilaudid and has been ambulating slightly better with a walker due to this medication. Review of Systems Constitutional: Denies: chills, fever. EENTM: Reports: nasal congestion. Denies: blurred vision, visual changes, hearing changes. Cardiovascular: Denies: chest pain, palpitations. Respiratory: Reports: cough, sputum production. Gastrointestinal: Reports: abdominal pain. Denies: nausea, vomiting. Genitourinary: Denies: dysuria. Musculoskeletal: Reports: muscle pain (Left flank). Denies: back pain, neck pain. Skin: Denies: erythema, rash. Neurological/Psychological: Denies: confusion, headache, numbness. Hematologic/Endocrine: Denies: bruising, bleeding. Immunologic/Allergic: Denies: splenectomy. Objective Last 24 Hrs of Vital Signs/I&O Vital Signs Date Time Temp Pulse Resp B/P Pulse O2 O2 Flow FiO2 Ox Delivery Rate 08/01 2306 99.3 100 20 138/66 92 Room Air 08/01 2245 100 138/66 08/01 1549 100.4 102 18 138/80 94 Nasal 1.5L Cannula 08/01 1046 92 Room Air 08/01 1002 92 128/72 Intake & Output 08/02 1600 08/02 0800 08/02 0000 Intake Total 720 Output Total 302 Balance 418 Intake, Oral 720 Output, Other 2 Output, Urine 300 Physical Exam General Appearance: Alert, Oriented X3, Cooperative, No Acute Distress Skin: No Rashes, No Breakdown, No Significant Lesion HEENT: Atraumatic, PERRLA, EOMI, Mucous Membr. moist/pink Neck: Supple, No JVD Lymphatic: Cervical nl Cardiovascular: Regular Rate, Normal S1, Normal S2, 3/6 systolic murmur Lungs: Decreased breath sounds left lung base Abdomen: Normal Bowel Sounds, Soft, Left abdominal tenderness to mild, moderate and deep palpation Neurological: Normal Speech, Strength at 5/5 X4 Ext, Normal Tone Extremities: No Clubbing, No Cyanosis, No Edema Vascular: Pulses Symmetrical Current Medications: Current Medications Sig/Geri Start time Last Medication Dose Route Stop Time Status Admin Allopurinol 300 MG DAILY 07/25 1200 AC 08/01 PO 1002 Atorvastatin Calcium 80 MG 1700 07/25 1700 AC 08/01 PO 1822 Bisacodyl 10 MG DAILY 07/27 1000 AC 08/01 PO 1000 Docusate Sodium 100 MG DAILY 07/25 1000 AC 08/01 PO 1003 Ezetimibe 10 MG DAILY 07/25 1000 AC 08/01 PO 1002 Ferrous Sulfate 325 MG BID 07/25 1000 AC 08/01 PO 2245 Fluticasone 2 SPRAY DAILY 07/25 1202 AC 08/01 Propionate JEF 1002 Gemfibrozil 600 MG BID 07/27 1000 AC 08/01 PO 2244 Guaifenesin 600 MG Q12 08/02 1000 AC PO Guaifenesin 600 MG Q12 PRN 08/01 2245 AC 08/01 PO 2245 Hydromorphone HCl 4 MG Q4P PRN 07/31 0745 AC 08/02 PO 0719 Levothyroxine Sodium 0.137 MG DAILY AC 07/25 1000 AC 08/02 PO 0657 Memantine 10 MG BID 07/25 1000 AC 08/01 PO 2244 Metoprolol Tartrate 75 MG BID 08/01 2200 AC 08/01 PO 2244 Metoprolol Tartrate 50 MG BID 07/27 1000 DC 08/01 PO 1002 Nitroglycerin 0.4 MG DAILY 07/30 1130 AC 08/01 TOP 1002 Nystatin 5 ML 4 TIMES/DAY 07/31 1400 AC 08/01 PO 2243 Omeprazole 40 MG DAILY AC 07/25 0933 AC 08/02 PO 0657 Ondansetron HCl 4 MG Q8P PRN 07/24 2345 AC 07/25 IV 1308 Oxycodone/ 1 TAB Q4P PRN 07/29 1615 AC 08/01 Acetaminophen PO 1822 Polyethylene Glycol 17 GM DAILY 07/27 1000 AC 08/01 PO 1002 Prednisolone 1 GTT DAILY 07/25 1000 AC 08/01 OPH 1002 Senna 187 MG AT BEDTIME 07/27 2200 AC 08/01 PO 2244 Tamsulosin HCl 0.4 MG QPM 07/25 2200 AC 08/01 PO 2245 Last 24 Hrs of Lab/Gregory Results Last 24 Hrs of Labs/Mics: Laboratory Tests 08/02/16 0611: CBC w Diff NO MAN DIFF REQ, RBC 2.85 L, MCV 87.1, MCH 29.5, RDW 15.2 H, MPV 6.5 L, Gran % 64.3, Lymphocytes % 15.4 L, Monocytes % 16.9 H, Eosinophils % 2.7, Basophils % 0.7, Absolute Granulocytes 4.2, Absolute Lymphocytes 1.0 L, Absolute Monocytes 1.1 H, Absolute Eosinophils 0.2, Absolute Basophils 0, PUBS MCHC 33.9 08/01/16 1625: Urine Color YEL, Urine Clarity CLEAR, Urine pH 7.5, Ur Specific [place] 1.015, Urine Protein TRACE H, Urine Ketones NEG, Urine Nitrite NEG, Urine Bilirubin NEG@ICTO, Urine Urobilinogen >=8.0 H, Ur Leukocyte Esterase TRACE H, Ur Microscopic SEDIMENT EXAMINED, Urine RBC RARE, Urine WBC RARE, Ur Epithelial Cells RARE, Urine Hemoglobin NEG, Urine Glucose NEG Microbiology 08/01 1645 BLOOD: Blood Culture - RECD 08/01 1635 BLOOD: Blood Culture - RECD 08/01 1625 URINE ROUT: Urine Culture - RECD Assessment/Plan Assessment: Mr. Soriano is a very pleasant 70-year-old gentleman with a past medical history of hypertension, HCV, GERD, hyperlipidemia, dyspepsia, mitral valve replacement in May 2014 (bovine) and a history of multiple nephrolithiasis who presented to the ED with left abdominal/flank pain the same day after he had lithotripsy ESWL procedure by Dr. Pavon. Patient was found to have urological evidence of left renal subscapular hematoma with extension to the retroperitoneum. Assessment and plan #Left-sided pain Pain located on the left flank and lower abdominal quadrant area. This is more likely secondary to post procedural inflammation and subcapsular right renal hematoma. Plan Continue symptomatic relief of pain (1 tab percocet Q4P for mdoerate pain and hydromorphone increased to 4mg PO Q4P for severe pain). Will discharge patient on dilaudid to control pain and prevent splinting. #Right renal Subcapsular hematoma Acute blood loss anemia secondary to post-procedural complication and active aspirin 321 mg use. Currently H&H stable and patient is hemodyncamically stable. Plan H&H currently stable at 8.4/24.8, will transfuse if <8 (consent form signed, type and screen sent) We have reconsulted Dr. Pavon and he suggested to NOT restart ASA and to continue with conservative management of subcapsular hematoma for now. Continue standing dose of bowel regimen (miralax, senna, colace). F/U with Dr. Pavon closely after discharge. #History of hypertension, hyperlipidemia Antihypertensives initially held 2/2 borderline low BP and concern for active bleeding. BP now stable. Plan Vital signs Q shift Metoprolol increased to 75 mg PO BID yesterday, continue nitro patch 0.4 mg/hr for 12 h/day. Continue gemfibrozil 600 mg PO BID, lipitor 80 mg PO, zetia 10 mg PO. #History of elevated uric acid level Likely contributing to patient's recurrent nephrolithiasis. Plan Continue allopurinol daily. #History of CAD Resume ASA once urology clears patient. Continue ezetimibe. Continue atorvastatin 80 mg. # History of hypothyroidism Continue levothyroxine. # History of BPH Continue tamsulosin. #Chest pain Likely type 2 IA in setting of physiologic stress (anemia) and recent discontinuation of ASA. Troponins peaked at 0.21, have since trended down, and T wave inversion precordial leads noted. Plan Cardio consult placed and appreciated, no need to continue telemetry monitoring. Echocardiogram showed normal EF to 70%, mild LVH, trace TR, normally seated/ functioning bioprosthetic aortic valve with mild stenosis. Hold off ASA for now, resume once risk of bleeding low and cleared by urology. Continue current cardiac regimen. Metoprolol increased to 75 mg PO BID yesterday, patient tolerating well. #Increased O2 requirements with respiratory failure At home, patient only uses CPAP at night without day time oxygen. Patient required up to 5 L O2 via NC due to shortness of breath and low oxygen saturations. Patient has been titrated off of nasal cannula and currently saturating well on room air. Plan Resolved, patient saturating well on room air. Continue incentive Spirometry. Monitor respiratory status closely and provide supplemental O2 as needed for O2 sat >92%. CXR (PA and lateral) yesterday showed small left pleural effusion and plate-like atelectasis. Mucinex added today for congestion. #Discharge planning PT evaluated patient and suggested STR. However, PT reevaluated patient today and suggested home as discharge plan. #Fever on 08/01/16 Patient febrile to 100.4 yesterday No leukocytosis, no s/s of infection, no further fever Plan Blood cultures x 2 and urine culture sent to the laboratory yesterday NGTD FULL CODE DVTP: ALPS Mild pain pathway Problem List: 1. Traumatic perinephric hematoma of left kidney 2. Acute blood loss as cause of postoperative anemia 3. Elevated troponin Pain Ratin Pain Location: Left Pain Goal: Pain 4 or less Pain Plan: 4 mg dilaudid Q4P for severe pain, percocet for moderate pain. Tomorrow's Labs & Rationales: If patient is not discharged, consideration for CBC to monitor hematoma. Consulting Request: Consulting Specialty: Urology
[2016-08-02 08:01] LABS: ABSOLUTE BASOPHIL COUNT 0 /CUMM (0.0-0.2); ABSOLUTE EOSINOPHIL COUNT 0.2 /CUMM (0.0-0.7); ABSOLUTE GRANULOCYTE CT 4.2 /CUMM (1.4-6.5); ABSOLUTE MONOCYTE COUNT 1.1 /CUMM (0.10-0.60); BASOPHIL % 0.7 % (0.0-2.0); EOSINOPHIL % 2.7 % (0-5); GRANULOCYTE % 64.3 % (42.2-75.2); HEMATOCRIT 24.8 % (42-52); MEAN CORPUSCULAR HGB 29.5 PG (27.0-31.0); MEAN CORPUSCULAR HGB CONC 33.9 G/DL (33.0-37.0); MEAN CORPUSCULAR VOLUME 87.1 FL (80.0-94.0); MEAN PLATELET VOLUME 6.5 FL (7.4-10.4); PLATELET COUNT 315 /CUMM (130-400); RBC DISTRIBUTION WIDTH 15.2 % (11.5-14.5); RED BLOOD CELL CT 2.85 /CUMM (4.70-6.10); WHITE BLOOD CELL COUNT 6.6 /CUMM (4.8-10.8)
[2016-08-02 08:24] VITALS: BP 160/80
[2016-08-02] MEDS ORDERED: MUCINEX600 M1 PO (09:50)
--- NOTE | 2016-08-02 14:43 | PN- Cardiology ---
Subjective Subjective: * Patient complains of a cough and diarrhea. * H/H continues to trend down. Objective Vital Signs and I&Os Vital Signs Date Time Temp Pulse Resp B/P Pulse O2 O2 Flow FiO2 Ox Delivery Rate 08/02 08 98.9 98 20 160/80 92 Room Air 08/02 0800 96 Room Air 08/01 2306 99.3 100 20 138/66 92 Room Air 08/01 2245 100 138/66 08/01 1549 100.4 102 18 138/80 94 Nasal 1.5L Cannula Intake & Output 08/02 1600 08/02 0800 08/02 0000 08/01 1600 08/01 0800 08/01 0000 Intake Total 480 720 720 130 200 Output Total 302 400 Balance 480 418 720 130 -200 Intake, IV 10 Intake, Oral 480 720 720 120 200 Output, Other 2 Output, Urine 300 400 Physical Exam: General: WD/ WN male in NAD; alert and oriented x 3 Neck: no JVD, no carotid bruit Heart RRR with 3/6 systolic murmur Lungs: decreased breath sounds at left base Abdomen: soft, mildly tender, +ve bowel sounds Extremities: no edema Assessment/Plan Assessment/Plan * Js has experienced a type 2 VA in the setting of pain, physiologic stress related to anemia and the discontinuation of his cardiac medications. This VA has manifested as chest discomfort and diffuse precordial T wave inversions along with elevated cardiac enzymes. He does continue to complain of chest discomfort which is worse with ambulation but it is difficult to know if this discomfort is related to his hematoma. We will plan on risk stratification with a stress test as an outpatient. In the meantime we will pursue medical therapy especially since this patient will be a poor candidate for anticoagulation if PCI is indeed needed. * Continue metoprolol at 75mg BID for better rate control to minimized angina while ambulating. Continue his NTG to a patch at 0.4mg/hr for 12 hours daily. Continue his statin and gemfibrozil 600mg BID. * Slightly decreased breath sounds at left base due to a pleural effusion. * Okay to DC telemetry. Continue telemetry? No
[2016-08-02 16:07] VITALS: BP 146/70
[2016-08-02 21:21] VITALS: BP 148/70
--- NOTE | 2016-08-03 06:48 | PN- Housestaff ---
See Addendum Subjective Follow-up For: Subcapsular hematoma, left kidney Acute blood loss anemia Acute respiratory failure Abdominal pain Type 2 AR Tele-Events Since Last Visit: Off tele. Subjective: Patient seen and examined at bedside this AM. He was resting comfortably in bed on the phone with his son. He reports he had a large bowel movement yesterday after which his abdominal pain improved significantly. He denies any recent fever or chills and has been ambulating well without assistance. Patient also reports the mucinex is greatly clearing up his congestion. Review of Systems Constitutional: Denies: chills, fever, malaise. EENTM: Denies: visual changes, nasal congestion. Cardiovascular: Denies: chest pain, palpitations. Respiratory: Reports: cough. Denies: short of breath, wheezing. Gastrointestinal: Reports: abdominal pain (Much improved). Denies: bloating, constipation, diarrhea, nausea, bloody stool, vomiting. Genitourinary: Denies: dysuria, hematuria. Musculoskeletal: Reports: back pain (Left flank, improved). Skin: Denies: erythema, rash. Neurological/Psychological: Denies: cognitive dysfunction, headache, tingling, tremors. Hematologic/Endocrine: Denies: bruising, bleeding. Objective Last 24 Hrs of Vital Signs/I&O Vital Signs Date Time Temp Pulse Resp B/P Pulse O2 O2 Flow FiO2 Ox Delivery Rate 08/03 0036 78 94 08/03 0000 95 CPAP 1.0L 08/02 2246 76 90 08/02 2121 95 148/70 08/02 2121 95 148/70 93 Nasal 1.0L Cannula 08/02 1607 98.8 87 20 146/70 91 08/02 0824 98.9 98 20 160/80 92 Room Air 08/02 0800 96 Room Air Intake & Output 08/03 0800 08/03 0000 08/02 1600 Intake Total 200 680 560 Output Total 600 Balance -400 680 560 Intake, Oral 200 680 560 Number 3 1 Bowel Movements Output, Urine 600 Physical Exam General Appearance: Alert, Oriented X3, Cooperative, No Acute Distress Skin: No Rashes, No Significant Lesion HEENT: Atraumatic, PERRLA, EOMI, Mucous Membr. moist/pink Neck: Supple, No thryomegaly Lymphatic: Cervical nl Cardiovascular: Regular Rate, Normal S1, Normal S2, 3/6 NORBERTO Lungs: Normal Air Movement, Decreased breath sounds left lung base. No wheezing or rhonchi appreciated. Abdomen: Normal Bowel Sounds, Soft, Mild tenderness left abdomen. Neurological: Normal Speech, Strength at 5/5 X4 Ext, Normal Tone Extremities: No Clubbing, No Cyanosis, No Edema, No Tenderness/Swelling Vascular: Pulses Symmetrical Current Medications: Current Medications Sig/Geri Start time Last Medication Dose Route Stop Time Status Admin Allopurinol 300 MG DAILY 07/25 1200 AC 08/02 PO 0948 Atorvastatin Calcium 80 MG 1700 07/25 1700 AC 08/02 PO 1859 Bisacodyl 10 MG DAILY 07/27 1000 AC 08/02 PO 0949 Docusate Sodium 100 MG DAILY 07/25 1000 AC 08/02 PO 0948 Ezetimibe 10 MG DAILY 07/25 1000 AC 08/02 PO 0948 Ferrous Sulfate 325 MG BID 07/25 1000 AC 08/02 PO 2122 Fluticasone 2 SPRAY DAILY 07/25 1202 AC 08/02 Propionate JEF 0949 Gemfibrozil 600 MG BID 07/27 1000 AC 08/02 PO 2123 Guaifenesin 600 MG Q12 08/02 1000 AC 08/03 PO 0644 Guaifenesin 600 MG Q12 PRN 08/01 2245 AC 08/01 PO 2245 Hydromorphone HCl 4 MG Q4P PRN 07/31 0745 AC 08/03 PO 0644 Levothyroxine Sodium 0.137 MG DAILY AC 07/25 1000 AC 08/03 PO 0644 Memantine 10 MG BID 07/25 1000 AC 08/02 PO 2123 Metoprolol Tartrate 75 MG BID 08/01 2200 AC 08/02 PO 2123 Nitroglycerin 0.4 MG DAILY 07/30 1130 AC 08/02 TOP 0949 Nystatin 5 ML 4 TIMES/DAY 07/31 1400 AC 08/02 PO 2122 Omeprazole 40 MG DAILY AC 07/25 0933 AC 08/03 PO 0644 Ondansetron HCl 4 MG Q8P PRN 07/24 2345 AC 07/25 IV 1308 Oxycodone/ 1 TAB Q4P PRN 07/29 1615 AC 08/01 Acetaminophen PO 1822 Patient Medication 1 ED .STK-MED ONE 08/02 1138 DC Teaching ED 08/02 1139 Polyethylene Glycol 17 GM DAILY 07/27 1000 AC 08/02 PO 0949 Prednisolone 1 GTT DAILY 07/25 1000 AC 08/02 OPH 0949 Senna 187 MG AT BEDTIME 07/27 2200 AC 08/01 PO 2244 Tamsulosin HCl 0.4 MG QPM 07/250 AC 08/02 PO 2122 Last 24 Hrs of Lab/Gregory Results Last 24 Hrs of Labs/Mics: Laboratory Tests 08/03/16 0600: CBC w Diff Pending, WBC Pending, RBC Pending, Hgb Pending, Hct Pending, MCV Pending, MCH Pending, RDW Pending, Plt Count Pending, MPV Pending, PUBS MCHC Pending Orders ECHO Findings: CONCLUSIONS 1. Normal EF of 70%. 2. Mild left ventricular hypertrophy. 3. Trace tricuspid regurgitation. 4. Normally seated and functioning bioprosthetic aortic valve with mild stenosis. Radiology Findings: CXR: IMPRESSION: 1. Decrease in lung volumes with bilateral platelike atelectasis seen in both lung bases. 2. No definite dense consolidation seen to suspect pneumonia. 3. Small left-sided pleural effusion is now noted, new. 4. Mild gaseous distention of bowel loops in the abdomen with scattered air-fluid levels. Findings are nonspecific. Clinical correlation requested. Miscellaneous Findings: Abd/pelvis CT: IMPRESSION: 1. Redemonstrated large left renal subcapsular hematoma, similar in appearance to 07/24/2016. However, there is mildly increased fluid tracking within the retroperitoneum compared to prior, left greater than right, suspicious for blood products. 2. Bibasilar pulmonary opacities may reflect atelectasis and/or consolidation. Trace pleural effusions. 3. Small calcification along the distal common bile duct, which may reflect choledocholithiasis. Assessment/Plan Assessment: Mr. Soriano is a very pleasant 70-year-old gentleman with a past medical history of hypertension, HCV, GERD, hyperlipidemia, dyspepsia, mitral valve replacement in May 2014 (bovine) and a history of multiple nephrolithiasis who presented to the ED with left abdominal/flank pain the same day after he had lithotripsy ESWL procedure by Dr. Pavon. Patient was found to have urological evidence of left renal subscapular hematoma with extension to the retroperitoneum. Assessment and plan #Left-sided pain Pain located on the left flank and lower abdominal quadrant area. This is likely 2/2 post procedural inflammation and subcapsular right renal hematoma. Plan Continue symptomatic relief of pain (1 tab percocet Q4P for moderate pain and hydromorphone 4mg PO Q4P for severe pain). Will discharge patient on dilaudid to control pain and prevent splinting. #Right renal Subcapsular hematoma Acute blood loss anemia secondary to post-procedural complication and active aspirin 321 mg use. Currently H&H stable and patient is hemodyncamically stable. Plan H&H currently stable at 8.4/24.8. We have reconsulted Dr. Pavon and he suggested to NOT restart ASA and to continue with conservative management of subcapsular hematoma for now. Continue standing dose of bowel regimen (miralax, senna, colace). F/U with Dr. Pvaon closely after discharge. #History of hypertension, hyperlipidemia Antihypertensives initially held 2/2 borderline low BP and concern for active bleeding. BP now stable. Plan Vital signs Q shift Metoprolol increased to 75 mg PO BID, continue nitro patch 0.4 mg/hr for 12 h/ day. Continue gemfibrozil 600 mg PO BID, lipitor 80 mg PO, zetia 10 mg PO. #History of elevated uric acid level Likely contributing to patient's recurrent nephrolithiasis. Plan Continue allopurinol daily. #History of CAD Resume ASA once urology clears patient. Continue ezetimibe. Continue atorvastatin 80 mg. # History of hypothyroidism Continue levothyroxine. # History of BPH Continue tamsulosin. #Chest pain Likely type 2 AR in setting of physiologic stress (anemia) and recent discontinuation of ASA. Troponins peaked at 0.21, have since trended down, and T wave inversion precordial leads noted. Plan Cardio consult placed and appreciated, no need to continue telemetry monitoring. Echocardiogram showed normal EF to 70%, mild LVH, trace TR, normally seated/ functioning bioprosthetic aortic valve with mild stenosis. Hold off ASA for now, resume once risk of bleeding low and cleared by urology. Continue current cardiac regimen. Metoprolol increased to 75 mg PO BID yesterday, patient tolerating well. #Increased O2 requirements with respiratory failure At home, patient only uses CPAP at night without day time oxygen. Patient required up to 5 L O2 via NC due to shortness of breath and low oxygen saturations. Patient has been titrated off of nasal cannula and currently saturating well on room air. Plan Resolved, patient saturating well on room air. Continue incentive Spirometry. Monitor respiratory status closely and provide supplemental O2 as needed for O2 sat >92%. CXR (PA and lateral) showed small left pleural effusion and plate-like atelectasis. Mucinex added for congestion. #Discharge planning PT evaluated patient and suggested STR. However, PT reevaluated patient today and suggested home as discharge plan. #Fever on 08/01/16 Patient febrile to 100.4 on 08/01 No leukocytosis, no s/s of infection, no further fever since 08/01 Plan Blood cultures x 2 and urine culture sent to the laboratory yesterday NGTD FULL CODE DVTP: ALPS Mild pain pathway Problem List: 1. Traumatic perinephric hematoma of left kidney 2. Acute blood loss as cause of postoperative anemia 3. Elevated troponin Pain Ratin Pain Location: Left flank/left abdomen Pain Goal: Pain 4 or less Pain Plan: 4 mg dilaudid Q4P for severe pain, 1 tab percocet for mild pain. Tomorrow's Labs & Rationales: None. Consulting Request: Consulting Specialty: Urology Consulting Specialty: Urology
[2016-08-03 07:56] LABS: ABSOLUTE BASOPHIL COUNT 0.1 /CUMM (0.0-0.2); ABSOLUTE EOSINOPHIL COUNT 0.2 /CUMM (0.0-0.7); ABSOLUTE GRANULOCYTE CT 4.7 /CUMM (1.4-6.5); ABSOLUTE LYMPH COUNT 1.4 /CUMM (1.2-3.4); ABSOLUTE MONOCYTE COUNT 1.3 /CUMM (0.10-0.60); BASOPHIL % 0.7 % (0.0-2.0); EOSINOPHIL % 2.4 % (0-5); GRANULOCYTE % 61.5 % (42.2-75.2); HEMATOCRIT 25.4 % (42-52); MEAN CORPUSCULAR HGB 29.4 PG (27.0-31.0); MEAN CORPUSCULAR HGB CONC 33.8 G/DL (33.0-37.0); MEAN CORPUSCULAR VOLUME 87.1 FL (80.0-94.0); MEAN PLATELET VOLUME 6.7 FL (7.4-10.4); PLATELET COUNT 322 /CUMM (130-400); RBC DISTRIBUTION WIDTH 15.2 % (11.5-14.5); RED BLOOD CELL CT 2.92 /CUMM (4.70-6.10); WHITE BLOOD CELL COUNT 7.6 /CUMM (4.8-10.8)
[2016-08-03 08:31] VITALS: BP 143/72
[2016-08-03] MEDS ORDERED: ASPIRIN325 M2 PO (10:55)
[2016-08-03] MEDS ORDERED: NORVASC10 M1 PO (10:55)
[2016-08-03] MEDS ORDERED: METOPROLOL TART25 M1 PO (10:56)
[2016-08-03] MEDS ORDERED: CHLORTHALIDONE25 M1 PO (10:56)
[2016-08-03] MEDS ORDERED: PERCOCET 5-3251 EACH PO (10:58)
--- NOTE | 2016-08-03 11:51 | NUR ---
Physical Therapy. Pt ambulating I'ly in the hallways, already cleared on stairs for home d/c. No further acute PT indicated at this time.
== END 2016-08-03 12:10 | disposition home health service (06) | DRG 919 ==
LOC: ENRESERVTM → ENRESERVDT → ERH 20:07 → DELPENDDIS 22:53 → ERHI 22:53 → CRI 22:53 → ENPENDDIS 22:53 → 1NO 22:53 → CRI 07-25 00:57 → 2NA 07-25 17:55 → CRI 07-27 01:03 → 1NO 07-27 19:11
PROVIDERS: Internal Medicine; Physician Assistant; Physician Assistant Medical; Physician Assistant Surgical; Student in an Organized Health Care Education/Training Program; ADMIT Internal Medicine
PROC: 5A09457 Assistance with Respiratory Ventilation, 24-96 Consecutive Hours, Continuous Positive Airway Pressure (ICD-10-PCS; principal; 2016-07-25)
DX: N99.840 Postprocedural hematoma of a genitourinary system organ or structure following a genitourinary system procedure (principal); J96.00 Acute respiratory failure, unspecified whether with hypoxia or hypercapnia; D62 Acute posthemorrhagic anemia; I24.8 Other forms of acute ischemic heart disease; I10 Essential (primary) hypertension; K21.9 Gastro-esophageal reflux disease without esophagitis; I25.2 Old myocardial infarction; I73.9 Peripheral vascular disease, unspecified; B18.2 Chronic viral hepatitis C; R50.9 Fever, unspecified; Y83.8 Other surgical procedures as the cause of abnormal reaction of the patient, or of later complication, without mention of misadventure at the time of the procedure; I25.10 Atherosclerotic heart disease of native coronary artery without angina pectoris; E03.9 Hypothyroidism, unspecified; E66.9 Obesity, unspecified; Z68.34 Body mass index [BMI] 34.0-34.9, adult; E11.9 Type 2 diabetes mellitus without complications; I35.0 Nonrheumatic aortic (valve) stenosis; Z95.3 Presence of xenogenic heart valve; Z87.891 Personal history of nicotine dependence
CPT/HCPCS: 1NSP; 2NASP; ERO; 36415; 74176; 74177; 81001; 82436; 87040; 87086; 93005; 93010; 93306; 96374; 96375; 96376; 97001-GP; 97112-GO; 97116-GO; 97530-GO; J0696; J0713; J1170; J2175; J2405

== ENCOUNTER → 2016-07-24 | Day surgery (SDC) | payer OTHER ==
[~2016-07-24] VITALS: Ht 172.7 cm; Wt 103.4 kg
[~2016-07-24] MED LIST: ALLOPURINOL300 M1 PO; ASPIRIN EC81 M1 PO; ASPIRIN325 M2 PO; CAVERJECT20 MCG; CHLORTHALIDONE25 M1 PO; COLACE100 M1 PO; COUMADIN2.5 M1 PO; COZAAR100 M1 PO; CRESTOR20 M2 PO; DILAUDID4 M1 PO; ENSURE LIQUID237 ML PO; FERROUS SULFAT325 M3 PO; FLOMAX0.4 M1 PO; FLUTICASONE PRO16 GM NASB; LEVOTHYROXINE137 MCG PO; LOPID600 MG PO; LOPRESSOR50 M1 PO; LOSARTAN-HCTZ1 EAC1 PO; METOPROLOL SUCC25 M1 PO; METOPROLOL TART25 M1 PO; MILK OF MA400 MG/52 PO; MIRALAX17 G1 PO; MUCINEX600 M1 PO; NAMENDA XR28 M1 PO; NITROGLYCERIN1 EACH TOP; NORVASC10 M1 PO; OMEPRAZOLE40 M1 PO; OMNIPRED10 ML OPH; PERCOCET 5-3251 EACH PO; VIAGRA100 M1 PO; VITAMIN D250000 UNIT PO; WARFARIN SODIUM5 M1 PO; ZETIA10 M1 PO
[2016-07-24 11:05] LABS: ABSOLUTE BASOPHIL COUNT 0 /CUMM (0.0-0.2); ABSOLUTE EOSINOPHIL COUNT 0.3 /CUMM (0.0-0.7); ABSOLUTE GRANULOCYTE CT 4.6 /CUMM (1.4-6.5); ABSOLUTE LYMPH COUNT 2.2 /CUMM (1.2-3.4); ABSOLUTE MONOCYTE COUNT 0.8 /CUMM (0.10-0.60); EOSINOPHIL % 4.1 % (0-5); GRANULOCYTE % 57.9 % (42.2-75.2); HEMATOCRIT 49.7 % (42-52); MEAN CORPUSCULAR HGB 29.5 PG (27.0-31.0); MEAN CORPUSCULAR VOLUME 86.7 FL (80.0-94.0); MEAN PLATELET VOLUME 7.4 FL (7.4-10.4); PLATELET COUNT 186 /CUMM (130-400); RBC DISTRIBUTION WIDTH 14.1 % (11.5-14.5); RED BLOOD CELL CT 5.73 /CUMM (4.70-6.10); WHITE BLOOD CELL COUNT 7.9 /CUMM (4.8-10.8)
[2016-07-24 11:09] LABS: BASOPHIL % 0.5 % (0.0-2.0)
--- NOTE | 2016-07-24 15:23 | Operative Report ---
Operative/Inv Procedure Report Surgery Date: 07/24/16 Name of Procedure: Left renal ESWL. Fluoroscopy Pre-Operative Diagnosis: Left renal stone, severe left renal colic. Post-Operative Diagnosis: Same Estimated Blood Loss: none Surgeon/Arts Administrator: ALLY ANGEL MD Anesthesia: moderate sedation Specimens: None Complications: None Condition: Improved pain Operative/Procedure Note Note: The patient was taken to the operating room and placed on the ESWL table in supine position. With the patient awake and participating, timeout was performed to confirm correct identity, procedure, laterality, anesthesia, and other pertinent josey-operative information. After adequate anesthesia, the patient was positioned so that the patient's left flank was positioned over the table cut-out, overlying the dome of the treatment head. Once the patient was adequately sedated, fluoroscopy, as well as Renal ultrasound was used to locate the LEFT renal stone. Renal US confirmed the presence of the stone which measured it to be approximately 5 mm renal pelvis stone. The stone was faintly visible with fluoroscopy. Renal US revealed, no hydronephrosis, and no solid tumor, and presence of the 5 mm stone. The position of the stone was optimized by using fluoroscopy, in AP and oblique views; placing the stone within the ESWL c-arm crosshairs. Once the stone's position was optimized, the LEFT renal E.S.W.L. was initiated at low energy level. After noting the patient's tolerance to the shockwaves, the intensitiy was ramped up to maximum level. At the end of the procedure, the left renal stone had dissintegrated. Of note, a total of 2500 shockwaves were delivered to the stone. The patient tolerated the ESWL procedures well, was awakened, then taken to recovery in satisfactory condition via stretcher. The patient was dischared home with pain medications, diet orders, and intructions to catch fragments by straining the urine. The patient to to have follow-up renal ultrasound and KUB in 1 to 2 weeks, prior to follow-up visit in my office. He will then proceed with metabolic stone work-up. Discharge Disposition: PACU CC: ALLY ANGEL MD
== END ==
LOC: STS 07:00 → EDBD 10:15
PROVIDERS: Urology
DX: N20.0 Calculus of kidney (principal); N23 Unspecified renal colic; E03.9 Hypothyroidism, unspecified; M10.9 Gout, unspecified; I10 Essential (primary) hypertension; E78.00 Pure hypercholesterolemia, unspecified; E29.1 Testicular hypofunction; I25.2 Old myocardial infarction
CPT/HCPCS: 36415; 93005; 93010; J2250

== ENCOUNTER 2016-08-16 10:30 | Inpatient (IN) | payer OTHER ==
[~2016-08-16] VITALS: Ht 172.7 cm; Wt 91.7 kg
[~2016-08-16 10:30] MED LIST changes: -ASPIRIN EC81 M1 PO; -COUMADIN2.5 M1 PO; -WARFARIN SODIUM5 M1 PO
--- NOTE | 2016-08-16 10:35 | ED CARDIAC/CP/PALPITATIONS ---
History of Present Illness General Chief Complaint: Chest Pain Stated Complaint: BIBA CP, SOB Source: patient, old records, EMS Exam Limitations: no limitations Vital Signs & Intake/Output Vital Signs & Intake/Output Vital Signs Date Time Temp Pulse Resp B/P Pulse O2 O2 Flow FiO2 Ox Delivery Rate 08/16 1750 98.3 80 18 150/78 95 Nasal 2.0L Cannula 08/16 1618 97.7 82 18 124/80 96 Nasal 2.0L Cannula 08/16 1440 97.5 67 16 157/76 96 Nasal 2.0L Cannula 08/16 1152 72 16 128/65 99 Nasal 2.0L Cannula 08/16 1049 87 148/80 08/16 1040 95 08/16 1038 97.6 76 20 147/95 95 Room Air Allergies Coded Allergies: NO KNOWN ALLERGIES (07/24/16) Reconcile Medications Allopurinol 300 MG TABLET 300 MG PO D GOUT (Reported) Alprostadil (Caverject) 20 MCG KIT 20 MCG .ROUTE NEEDED PRN ERECTILE DYSFUNCTION (Reported) INTRACAVERNOSAL Amlodipine Besylate (Norvasc) 10 MG TABLET 10 MG PO HTN HTN (Reported) Reason to Stop at ADM: BP within control, will restart if it goes >120-130 Aspirin (Aspirin*) 325 MG TABLET 325 MG PO DAILY BLOOD THINNER (Reported) Reason to Stop at ADM: renal hematoma Chlorthalidone 25 MG TABLET 25 MG PO QAM CARDIAC (Reported) Docusate Sodium (Colace) 100 MG CAPSULE 1 CAP PO DAILY STOOL SOFTENER ( Reported) Ezetimibe (Zetia) 10 MG TABLET 10 MG PO D CHOLESTEROL (Reported) Ferrous Sulfate 325 MG (65 MG IRON) TABLET 325 MG PO BID ANEMIA (Reported) Fluticasone Propionate 50 MCG/ACTUATION SPRAY.SUSP 2 SPRAY NASB DAILY BREATHING (Reported) Gemfibrozil (Lopid) 600 MG TABLET 600 MG PO BID Cholesterol Guaifenesin (Mucinex) 600 MG TAB.ER.12H 1 TAB PO BID PRN Congestion Hydromorphone HCl (Dilaudid) 4 MG TABLET 1 TAB PO 4XDP PRN Severe pain 7-10 Lactose-Reduced Food (Ensure Liquid) 237 ML LIQUID 1 CAN PO DAILY PRN NUTRITIONAL SUPPLEMENT (Reported) Levothyroxine Sodium 137 MCG TABLET 137 MCG PO QAM HYPOTHYROIDISM (Reported) Magnesium Hydroxide (Milk Of Magnesia) 400 MG/5 ML ORAL.SUSP 5 ML PO BID PRN CONSTIPATION Memantine HCl (Namenda XR) 28 MG CAP.SPR.24 1 CAP PO DAILY MEMORY (Reported) Metoprolol Succinate 25 MG TAB 75 MG PO BID HYPERTENSION Nitroglycerin (Nitroglycerin Patch) 0.4 MG/HOUR PATCH.TD24 0.4 MG TOP DAILY Chest pain Omeprazole 40 MG CAPSULE.DR 40 MG PO D GERD (Reported) Polyethylene Glycol 3350 (Miralax) 17 GRAM POWD.PACK 1 PAC PO DAILY PRN CONSTIPATION dissolve in water Prednisolone Acetate (Omnipred) 1 % DROPS.SUSP 1 GTT OPH DAILY EYE(S) ( Reported) Rosuvastatin Calcium (Crestor) 20 MG TABLET 20 MG PO D CHOLESTEROL (Reported) Sildenafil Citrate (Viagra) 100 MG TABLET 1 TAB PO DAILY NEEDED ERECTILE DYSFUNCTION (Reported) 1 hour before sexual activity Tamsulosin HCl (Flomax) 0.4 MG CAP.ER.24H 0.4 MG PO QPM BPH (Reported) Triage Nurses Notes Reviewed? yes Onset: Abrupt Duration: constant Timing: recent history Quality/Severity: pressure, sharp, stabbing, tightness Radiation: back Activities at Onset: none HPI: Patient is a 70-year-old male with past medical history of hypertension, CAD, severe aortic stenosis 2 CABG, postoperative A. 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 Patient took today 325 mg of aspirin, a nitroglycerin patch was applied prior to EMS arrival EMS administered sublingual 1 nitroglycerin with no relief of symptoms. Patient currently C/O 10/10 sharp stabbing severe chest pain. Patient states that deep ventilation and shortness of breath associated symptoms. Denies any nausea vomiting arm pain and jaw pain leg swelling cough. 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 Velazquez (ALIYAH VILLEGAS) Past History Travel History Traveled to [place] past 21 day No Medical History Any Pertinent Medical History? 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 No (ALIYAH VILLEGAS) Review of Systems Review of Systems Constitutional: Reports: no symptoms. EENTM: Reports: no symptoms. Respiratory: Reports: see HPI, short of breath. Cardiovascular: Reports: see HPI, chest pain. GI: Reports: see HPI. Denies: abdominal pain. Genitourinary: Reports: no symptoms. Musculoskeletal: Reports: see HPI, back pain. Skin: Reports: no symptoms. Neurological/Psychological: Reports: no symptoms. Hematologic/Endocrine: Reports: no symptoms. Immunologic/Allergic: Reports: no symptoms. All Other Systems: Reviewed and Negative (ALIYAH VILLEGAS) Physical Exam Physical Exam General Appearance: mild distress Cardiovascular: regular rate/rhythm, systolic murmur Rectal: heme negative stool Comments: HEENT: Normal EENT exam, Neck: Supple, no lymphadenopathy, normal range of motion without pain or tenderness Back: Nontender, no CVA tenderness Respiratory: . right anterior chest wall and substernal point tenderness respiratory distress.breath sounds clear to auscultation bilaterally Abdomen: Soft, nontender nondistended, no appreciable organomegaly. Normal bowel sounds. No ascites Extremity: No edema, no calf tenderness to palpation, normal and equal pulses. Neuro: Alert oriented x3, motor sensory normal, Skin: No appreciable rash on exposed skin, skin is warm and dry. Psych: Mood and affect is normal, memory and judgment is normal. Core Measures ACS in differential dx? Yes Severe Sepsis Present: No Septic Shock Present: No (ALIYAH VILLEGAS) Progress Differential Diagnosis: AMI, aortic dissection, atrial fibrillation, cholecystitis, CHF/pulm edema, costochondritis, hyperkalemia, hypovolemia, hyperthyroid, hyperventilation, intracranial hemorrhage, musculoskeletal pain, myocarditis, pancreatitis, pericarditis, pneumonia, pneumothorax, PSVT, pulmonary embolism, PUD/GERD, PVCs/PACs, respiratory failure, rib fracture, sepsis, unstable angina, V-fib/V-Tach, WPW syndrome Plan of Care: Orders Procedure Date/time Status PARTIAL THROMBOPLASTIN TIME 08/17 599 Active PROTHROMBIN TIME 08/17 06 Active CBC WITHOUT DIFFERENTIAL 08/17 599 Active BASIC ELECTROLYTES PLUS BUN&CR 08/17 599 Active Regular Diet 08/16 D Active Teach/Educate 08/16 2005 Active Pain Treatment and Response 08/16 2005 Active Nutritional Intake, Monitor 08/16 2005 Active Isolation 08/16 2005 Active Intake & Output 08/16 2005 Active Patient Care Conference 08/16 2005 Active PARTIAL THROMBOPLASTIN TIME 08/17 1999 Active Pathway - chart 08/16 1617 Active Pathway - chart 08/16 1616 Active ECHOCARDIOGRAM 08/16 1600 Active Add-on Test (ER Only) 08/16 1451 Active PARTIAL THROMBOPLASTIN TIME 08/16 1451 Active PROTHROMBIN TIME 08/16 1451 Active Saline Lock 08/16 1428 Active Misc Message 08/16 1428 Active ED Holding Orders 08/16 1428 Active Vital Signs 08/16 1428 Active Activity/Ambulation 08/16 1428 Active Code Status 08/16 1428 Active Weight 08/16 1405 Active Patient Data 08/16 1323 Active Admit to inpatient 08/16 1320 Active PARTIAL THROMBOPLASTIN TIME 08/16 1042 Complete PROTHROMBIN TIME 08/16 1042 Complete Telemetry/Postdoctoral Research Fellow 08/16 1037 Active THYROID STIMULATING HORMONE 08/16 1037 Complete TROPONIN LEVEL 08/16 1037 Complete FREE T4 08/16 1037 Complete D-DIMER 08/16 1037 Complete COMPREHENSIVE METABOLIC PANEL 08/16 1037 Complete CBC WITHOUT DIFFERENTIAL 08/16 1037 Complete B-TYPE NATRIURETIC PEP (BNP) 08/16 1037 Complete EKG 08/16 1032 Active TRC EVALUATION (GEN) 08/16 UNK Active House Staff 08/16 UNK Active VTE Mechanical Prophylaxis 08/16 UNK Active Vital Signs 08/16 UNK Active Current Medications Sig/Geri Start time Last Medication Dose Stop Time Status Admin Allopurinol 300 MG DAILY 08/17 1000 AC (Zyloprim) Amlodipine Besylate 10 MG DAILY 08/17 1000 AC (Norvasc) Chlorthalidone 25 MG QAM 08/17 1000 AC (Hygroton) Ezetimibe 10 MG DAILY 08/17 1000 AC (Zetia) Memantine 10 MG BID 08/17 1000 AC (Namenda) Prednisolone 1 GTT DAILY 08/17 1000 AC (Pred Forte) Levothyroxine Sodium 0.137 MG DAILY AC 08/17 0700 AC (Synthroid) Omeprazole 40 MG DAILY AC 08/17 0700 AC (Prilosec) Ferrous Sulfate 325 MG BID 08/160 AC (Feosol) Gemfibrozil 600 MG BID 08/16 2199 AC (Lopid 600 MG Tab) Metoprolol Tartrate 75 MG BID 08/16 220 AC (Lopressor) Tamsulosin HCl 0.4 MG QPM 08/16 2200 AC (Flomax) Acetaminophen 650 MG Q8P PRN 08/16 1630 AC (Tylenol) Guaifenesin 600 MG BID PRN 08/16 1615 AC (Mucinex) Magnesium Hydroxide 30 ML BID PRN 08/16 1615 AC (Milk Of Magnesia) Nitroglycerin 0.4 MG DAILY 08/16 1607 AC (Transderm Nitro 10MG (0.4 MG/Hr) Patch) Laboratory Tests 08/16/162006: APTT Pending 08/16/16 1042: Anion Gap 8, Estimated GFR > 60, BUN/Creatinine Ratio 15.0, Glucose 93, Calcium 9.4, Total Bilirubin 1.2, AST 23, ALT 28, Alkaline Phosphatase 182 H, Troponin I < 0.01, Tcm-F-Zgcjvaajsig Pept 210 H, Total Protein 7.1, Albumin 3.6, Globulin 3.5, Albumin/Globulin Ratio 1.0 L, TSH 1.420, Free T4 2.26, PT 12.7 H , INR 1.21 H, APTT 29, D-Dimer 2007 H, CBC w Diff NO MAN DIFF REQ, RBC 4.35 L , MCV 87.2, MCH 28.6, RDW 16.8 H, MPV 6.9 L, Gran % 61.4, Lymphocytes % 24.6, Monocytes % 11.2 H, Eosinophils % 2.1, Basophils % 0.7, Absolute Granulocytes 3.7, Absolute Lymphocytes 1.5, Absolute Monocytes 0.7 H, Absolute Eosinophils 0.1, Absolute Basophils 0, PUBS MCHC 32.8 L Patient was given morphine and sublingual nitroglycerin which she states he had significant resolution of pain. Currently patient states that at rest he has no pain however movements of upper extremity and torso region makes symptoms worse. I spoke with the radiologist for the CT scan in which they were concerns of multiple segmental and subsegmental pulmonary embolism however no infarct was noted. I discussed the CT scan findings with Dr. Pavon who also evaluated CT scan as stated that his hematoma was stable and that heparin would be appropriate for patient's critical findings of pulmonary embolism. Patient had negative fecal occult blood test. I discussed disposition plan with Dr. Decker in patient who agrees and has no questions. (VICENTE PATEL,ALIYAH) Diagnostic Imaging: Viewed by Me: CT Scan. Discussed w/RAD: CT Scan. Radiology Impression: acute abnormality Initial ED EKG: NORMAL SINUS RHYTHM, lvh Prior EKG: unchanged Comments: PATIENT: TANYA VILLALTA PRESENT AGE: 70 PATIENT ACCOUNT NO: [id number] : 46 LOCATION: [facility] ORDERING PHYSICIAN: ALIYAH PATEL SERVICE DATE: 08/16/16 EXAM TYPE: CAT - CT ABD & PELVIS ANGIOGRAM; CTA CHEST-AORTIC DISSECTION EXAMINATION: CT ANGIOGRAM CHEST, ABDOMEN AND PELVIS WITHOUT AND WITH CONTRAST INTERPRETING VASCULAR \T\ INTERVENTIONAL RADIOLOGIST: Anastacia Blake M.D./PhD CLINICAL INFORMATION: Chest pain to back. Recent hematoma. TECHNIQUE: Multiple axial images were obtained through the chest, abdomen and pelvis using a [address] scan before and after administration of IV contrast. 100 mL of Optiray 350 was administered intravenously. Images were evaluated on independent dedicated 3-D workstation and 3-D images were reconstructed with concurrent radiologist supervision and subsequently interpreted. COMPARISON: 07/27/2016, 07/24/2016. DLP: 1497.54 mGy-cm. FINDINGS: VASCULAR: 1. Ascending thoracic aorta: Aortic valve replacement. No evidence of aneurysm, dissection or stenosis. 2. Thoracic aortic arch: Two-vessel aortic arch. Atherosclerosis of the arch without evidence of aneurysm, stenosis or dissection. Atherosclerotic disease of the branch vessels without evidence of stenosis. 3. Descending thoracic aorta: Atherosclerosis without evidence of aneurysm, dissection or stenosis. 4. Mesenteric arteries: Atherosclerotic disease is present at the origin of the mesenteric arteries with mild stenosis at the origin of the celiac axis and inferior mesenteric artery. 5. Renal arteries: Single patent right renal artery. 2 left renal arteries are patent. 6. Abdominal aorta: Moderate atherosclerotic disease of the abdominal aorta with ectasia measuring up to 2.3 x 2.2 cm with small mural thrombus. 7. Right iliofemoral system: Moderate scattered atherosclerotic disease throughout the visualized right iliofemoral system without evidence of aneurysm, dissection or stenosis. 8. Left iliofemoral system: Moderate scattered atherosclerotic disease of the left iliofemoral system. There is moderate stenosis at the origin of the left internal iliac artery. No evidence of aneurysm or dissection. 9. Pulmonary arteries: Scattered subcentimeter pulmonary emboli are seen bilaterally with a nonocclusive segmental thrombus within the left posterior basilar segment artery. As above, there is no evidence of pulmonary infarction. No evidence of reflux of contrast into the hepatic veins or right septal bowing to suggest right heart strain. NONVASCULAR: CHEST: LUNGS: Dependent changes along the posterior lower lobes with subsegmental atelectasis with linear configuration. Interval resolution of the trace bilateral pleural effusions with decreased consolidation of the posterior lower lobes. No evidence of pneumothorax. MEDIASTINUM: Heart size is normal. Status post aortic valve replacement. Status post coronary artery bypass grafting. No evidence of pericardial effusion or mediastinal lymphadenopathy. Limited views of the thyroid gland are unremarkable. PERICARDIUM/PLEURA: There is no significant effusion. No pleural mass or thickening. CHEST WALL/AXILLA: No evidence of axillary lymphadenopathy. ABDOMEN/PELVIS: LIVER, GALLBLADDER, BILIARY TREE: The liver is normal in size, shape, and attenuation. No focal hepatic lesion or biliary ductal dilatation is present. Cholecystectomy. PANCREAS: Unremarkable. SPLEEN: Unremarkable. ADRENAL GLANDS: Unremarkable. KIDNEYS AND URETERS: No significant interval change to the large left renal subcapsular hematoma measuring 9.3 x 11.4 x 17.4 cm in the transverse by AP by craniocaudal dimensions, respectively. Previously this measured 9.4 x 11.7 x 17.6 cm on 07/27/2016. There is heterogeneous attenuation within the hematoma indicating evolving blood products. Fluid tracks along the left retroperitoneum which has demonstrated interval decrease. Stable right renal cyst and scattered right calculi. No evidence of hydronephrosis bilaterally. Left renal cysts are again appreciated. BLADDER: Partially distended which limits evaluation. No focal abnormalities. GASTROINTESTINAL TRACT: The small and large bowel are unremarkable. The appendix is not well seen. ABDOMINAL WALL: No hernia is demonstrated. LYMPH NODES: No evidence of lymphadenopathy within the abdomen or pelvis by CT criteria. PELVIC VISCERA: The prostate is enlarged measuring 5.5 cm in transverse dimension. OSSEOUS STRUCTURES: No suspicious or acute osseous abnormality. IMPRESSION: 1. No evidence of aortic dissection. 2. Multiple scattered subsegmental pulmonary emboli without evidence of right heart strain. No evidence of pulmonary infarction. Interval resolution of the trace bilateral pleural effusions with improved bibasilar consolidations. 3. Stable size of the left subcapsular perinephric hematoma with evolving blood products. There is decreased blood products tracking within the left retroperitoneum. 4. Atherosclerotic disease as detailed above. This critical result was discussed with Dr. Jaquez at 1252 on 08/16/2016 and it was ascertained that the content and urgency of the report was understood at the time of direct communication. (ALIYAH VILLEGAS) Departure Departure Disposition: STILL A PATIENT Condition: Stable Clinical Impression Primary Impression: Pulmonary embolism Secondary Impressions: Chest pain Referrals: ABDULLAHI MUNOZ MD (PCP/Family) Departure Forms: Customer Survey General Discharge Information Admission Note Spoke With: ANGEL GARCIA,[facility] Documentation of Exam: Documentation of any treatments & extenuating circumstances including Concerns Regarding Discharge (functional status, medication knowledge or non-compliance, living conditions, etc.) that warrant an admission rather than observation: [ Discussed admission with Dr. ORTIZ who agrees with telemetry admission which patient requires IV heparinization repeat labs cardiology consultation telemetry monitoring IV pain medication. Outpatient treatment at this time due to critical findings of pulmonary embolism would be medically harmful] (ALIYAH VILLEGAS) PA/CLIMATOLOGIST Co-Sign Statement Statement: ED Attending supervision documentation- [X] I saw and evaluated the patient. I have also reviewed all the pertinent lab results and diagnostic results. I agree with the findings and the plan of care as documented in the PA's/CLIMATOLOGIST's documentation. [X] I have reviewed the ED Record and agree with the PA's/CLIMATOLOGIST's documentation. [] Additions or exceptions (if any) to the PAs/CLIMATOLOGIST's note and plan are summarized below: [] (CRISS GARCIA,FRANKLIN Leary) Critical Care Note Critical Care Note Critical Care Time: 30-74 min (ALIYAH VILLEGAS)
[2016-08-16 10:52] LABS: ABSOLUTE BASOPHIL COUNT 0 /CUMM (0.0-0.2); ABSOLUTE EOSINOPHIL COUNT 0.1 /CUMM (0.0-0.7); ABSOLUTE GRANULOCYTE CT 3.7 /CUMM (1.4-6.5); ABSOLUTE LYMPH COUNT 1.5 /CUMM (1.2-3.4); ABSOLUTE MONOCYTE COUNT 0.7 /CUMM (0.10-0.60); BASOPHIL % 0.7 % (0.0-2.0); EOSINOPHIL % 2.1 % (0-5); GRANULOCYTE % 61.4 % (42.2-75.2); HEMATOCRIT 37.9 % (42-52); MEAN CORPUSCULAR HGB 28.6 PG (27.0-31.0); MEAN CORPUSCULAR HGB CONC 32.8 G/DL (33.0-37.0); MEAN CORPUSCULAR VOLUME 87.2 FL (80.0-94.0); MEAN PLATELET VOLUME 6.9 FL (7.4-10.4); PLATELET COUNT 391 /CUMM (130-400); RBC DISTRIBUTION WIDTH 16.8 % (11.5-14.5); RED BLOOD CELL CT 4.35 /CUMM (4.70-6.10)
--- NOTE | 2016-08-16 11:35 | RADIOLOGY REPORT ---
EXAMINATION: XR PORTABLE CHEST CLINICAL INFORMATION: Chest pain COMPARISON: 07/31/2016 and 01/20/2016 TECHNIQUE: Portable AP view of the chest was obtained. FINDINGS: Sternal wires are redemonstrated. The cardiomediastinal silhouette is normal in size. There is mild hypoexpansion at left lung base with faint linear opacities consistent with subsegmental atelectasis. The findings of atelectasis have improved from prior exam of 07/31/2016. No evidence for consolidation, congestion or significant effusion. IMPRESSION: Hypoexpanded left lung base. No acute pulmonary finding.
--- NOTE | 2016-08-16 13:45 | History & Physical ---
SAMUEL VILLA 08/16/16 1344: General Information and HPI MD Statement: I have seen and personally examined TANYA VILLALTA and documented this H&P. The patient is a 70 year old M who presented with a patient stated chief complaint of chest pain Source of Information: patient, old records Exam Limitations: no limitations History of Present Illness: 70-year-old gentleman with a past medical history of hypertension, HCV, GERD, hyperlipidemia, dyspepsia, mitral valve replacement in May 2014 (bovine) and a history of multiple nephrolithiasis, recent admission July 24 for left renal subcapsular hematoma with extension to the retroperitoneum status post lithotripsy ESWL procedure, came to ED for evaluation of right sided severe chest pain that started last night while he was watching TV, reported radiation to the back and associated with pain on deep breathing. Denied palpitations, shortness of breath, abdominal pain Allergies/Medications Allergies: Coded Allergies: NO KNOWN ALLERGIES (07/24/16) Home Med list Allopurinol 300 MG TABLET 300 MG PO D GOUT (Reported) Alprostadil (Caverject) 20 MCG KIT 20 MCG .ROUTE NEEDED PRN ERECTILE DYSFUNCTION (Reported) INTRACAVERNOSAL Amlodipine Besylate (Norvasc) 10 MG TABLET 10 MG PO HTN HTN (Reported) Reason to Stop at ADM: BP within control, will restart if it goes >120-130 Aspirin (Aspirin*) 325 MG TABLET 325 MG PO DAILY BLOOD THINNER (Reported) Reason to Stop at ADM: renal hematoma Chlorthalidone 25 MG TABLET 25 MG PO QAM CARDIAC (Reported) Docusate Sodium (Colace) 100 MG CAPSULE 1 CAP PO DAILY STOOL SOFTENER ( Reported) Ezetimibe (Zetia) 10 MG TABLET 10 MG PO D CHOLESTEROL (Reported) Ferrous Sulfate 325 MG (65 MG IRON) TABLET 325 MG PO BID ANEMIA (Reported) Fluticasone Propionate 50 MCG/ACTUATION SPRAY.SUSP 2 SPRAY NASB DAILY BREATHING (Reported) Gemfibrozil (Lopid) 600 MG TABLET 600 MG PO BID Cholesterol Guaifenesin (Mucinex) 600 MG TAB.ER.12H 1 TAB PO BID PRN Congestion Hydromorphone HCl (Dilaudid) 4 MG TABLET 1 TAB PO 4XDP PRN Severe pain 7-10 Lactose-Reduced Food (Ensure Liquid) 237 ML LIQUID 1 CAN PO DAILY PRN NUTRITIONAL SUPPLEMENT (Reported) Levothyroxine Sodium 137 MCG TABLET 137 MCG PO QAM HYPOTHYROIDISM (Reported) Magnesium Hydroxide (Milk Of Magnesia) 400 MG/5 ML ORAL.SUSP 5 ML PO BID PRN CONSTIPATION Memantine HCl (Namenda XR) 28 MG CAP.SPR.24 1 CAP PO DAILY MEMORY (Reported) Metoprolol Succinate 25 MG TAB 75 MG PO BID HYPERTENSION Nitroglycerin (Nitroglycerin Patch) 0.4 MG/HOUR PATCH.TD24 0.4 MG TOP DAILY Chest pain Omeprazole 40 MG CAPSULE.DR 40 MG PO D GERD (Reported) Polyethylene Glycol 3350 (Miralax) 17 GRAM POWD.PACK 1 PAC PO DAILY PRN CONSTIPATION dissolve in water Prednisolone Acetate (Omnipred) 1 % DROPS.SUSP 1 GTT OPH DAILY EYE(S) ( Reported) Rosuvastatin Calcium (Crestor) 20 MG TABLET 20 MG PO D CHOLESTEROL (Reported) Sildenafil Citrate (Viagra) 100 MG TABLET 1 TAB PO DAILY NEEDED ERECTILE DYSFUNCTION (Reported) 1 hour before sexual activity Tamsulosin HCl (Flomax) 0.4 MG CAP.ER.24H 0.4 MG PO QPM BPH (Reported) Compliance With Home Meds: GOOD Past History Travel History Traveled to [place] past 21 day No Medical History Neurological: CVA EENT: NONE Cardiovascular: CAD, hypertension, hyperlipidemia, myocardial infarction, PVD, syncope, bioprosthetic aortic valve replacement with 2 bypass grafts post-op atrial fibrillation Respiratory: NONE Gastrointestinal: GERD Hepatic: hepatitis C Renal: nephrolithiasis, urinary incontinence, renal insufficiency Musculoskeletal: gout, osteoarthritis Psychiatric: NONE Endocrine: diabetes, hypothyroidism Blood Disorders: NONE Cancer(s): 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 Home Services at Home: Nursing Smoking Status: Never Smoked ETOH Use: denies use Illicit Drug Use: denies illicit drug use Functional Ability ADLs Independent: dressing, eating, toileting, bathing. Ambulation: independent IADLs Independent: shopping, housework, finances, food prep, telephone, transportation , medication admin. Review of Systems Review of Systems Constitutional: Denies: chills, diaphoresis, fever, malaise, weakness, unexplained weight loss. Cardiovascular: Reports: chest pain. Denies: edema, orthopena, palpitations, peripheral edema, syncope. Respiratory: Reports: cough. Denies: hemoptysis, orthopnea, short of breath, sputum production, stridor, wheezing. GI: Denies: abdominal pain, bloating, constipation, diarrhea, distention, bowel incontinence, melena, nausea, bloody stool, changes in stool, vomiting, steatorrhea. Genitourinary: Denies: discharge, dysuria, frequency, hematuria, hesitation, nocturia, pain, urgency. Exam & Diagnostic Data Last 24 Hrs of Vital Signs/I&O Vital Signs Date Time Temp Pulse Resp B/P Pulse O2 O2 Flow FiO2 Ox Delivery Rate 08/16 1440 97.5 67 16 157/76 96 Nasal 2.0L Cannula 08/16 1152 72 16 128/65 99 Nasal 2.0L Cannula 08/16 1049 87 148/80 08/16 1040 95 08/16 1038 97.6 76 20 147/95 95 Room Air Intake & Output 08/16 1600 08/16 0800 08/16 0000 Intake Total Output Total Balance Patient 211 lb Weight Physical Exam General Appearance Alert, Oriented X3, Cooperative, No Acute Distress Skin ecchymosis on left lower abdomen HEENT Atraumatic, PERRLA, EOMI, Mucous Membr. moist/pink Neck Supple, No JVD Lymphatic Cervical nl Cardiovascular Regular Rate, Normal S1, Normal S2 Lungs Clear to Auscultation, Normal Air Movement Abdomen Soft, No Tenderness, left side swelling Extremities No Edema Last 24 Hrs of Labs/Gregory: Laboratory Tests 08/16/16 1042: Anion Gap 8, Estimated GFR > 60, BUN/Creatinine Ratio 15.0, Glucose 93, Calcium 9.4, Total Bilirubin 1.2, AST 23, ALT 28, Alkaline Phosphatase 182 H, Troponin I < 0.01, Shx-E-Zrbxxwterwq Pept 210 H, Total Protein 7.1, Albumin 3.6, Globulin 3.5, Albumin/Globulin Ratio 1.0 L, TSH 1.420, Free T4 2.26, PT 12.7 H , INR 1.21 H, APTT 29, D-Dimer 2007 H, CBC w Diff NO MAN DIFF REQ, RBC 4.35 L , MCV 87.2, MCH 28.6, RDW 16.8 H, MPV 6.9 L, Gran % 61.4, Lymphocytes % 24.6, Monocytes % 11.2 H, Eosinophils % 2.1, Basophils % 0.7, Absolute Granulocytes 3.7, Absolute Lymphocytes 1.5, Absolute Monocytes 0.7 H, Absolute Eosinophils 0.1, Absolute Basophils 0, PUBS MCHC 32.8 L Diagnostic Data EKG Results NSR HR 75 CXR Results SERVICE DATE: 08/16/16 EXAM TYPE: RAD - XRY-PORTABLE CHEST XRAY FINDINGS: Sternal wires are redemonstrated. The cardiomediastinal silhouette is normal in size. There is mild hypoexpansion at left lung base with faint linear opacities consistent with subsegmental atelectasis. The findings of atelectasis have improved from prior exam of 07/31/2016. No evidence for consolidation, congestion or significant effusion. IMPRESSION: Hypoexpanded left lung base. No acute pulmonary finding. Other Results SERVICE DATE: 08/16/16 EXAM TYPE: CAT - CT ABD & PELVIS ANGIOGRAM; CTA CHEST-AORTIC DISSECTION FINDINGS: VASCULAR: 1. Ascending thoracic aorta: Aortic valve replacement. No evidence of aneurysm, dissection or stenosis. 2. Thoracic aortic arch: Two-vessel aortic arch. Atherosclerosis of the arch without evidence of aneurysm, stenosis or dissection. Atherosclerotic disease of the branch vessels without evidence of stenosis. 3. Descending thoracic aorta: Atherosclerosis without evidence of aneurysm, dissection or stenosis. 4. Mesenteric arteries: Atherosclerotic disease is present at the origin of the mesenteric arteries with mild stenosis at the origin of the celiac axis and inferior mesenteric artery. 5. Renal arteries: Single patent right renal artery. 2 left renal arteries are patent. 6. Abdominal aorta: Moderate atherosclerotic disease of the abdominal aorta with ectasia measuring up to 2.3 x 2.2 cm with small mural thrombus. 7. Right iliofemoral system: Moderate scattered atherosclerotic disease throughout the visualized right iliofemoral system without evidence of aneurysm, dissection or stenosis. 8. Left iliofemoral system: Moderate scattered atherosclerotic disease of the left iliofemoral system. There is moderate stenosis at the origin of the left internal iliac artery. No evidence of aneurysm or dissection. 9. Pulmonary arteries: Scattered subcentimeter pulmonary emboli are seen bilaterally with a nonocclusive segmental thrombus within the left posterior basilar segment artery. As above, there is no evidence of pulmonary infarction. No evidence of reflux of contrast into the hepatic veins or right septal bowing to suggest right heart strain. NONVASCULAR: CHEST: LUNGS: Dependent changes along the posterior lower lobes with subsegmental atelectasis with linear configuration. Interval resolution of the trace bilateral pleural effusions with decreased consolidation of the posterior lower lobes. No evidence of pneumothorax. MEDIASTINUM: Heart size is normal. Status post aortic valve replacement. Status post coronary artery bypass grafting. No evidence of pericardial effusion or mediastinal lymphadenopathy. Limited views of the thyroid gland are unremarkable. PERICARDIUM/PLEURA: There is no significant effusion. No pleural mass or thickening. CHEST WALL/AXILLA: No evidence of axillary lymphadenopathy. ABDOMEN/PELVIS: LIVER, GALLBLADDER, BILIARY TREE: The liver is normal in size, shape, and attenuation. No focal hepatic lesion or biliary ductal dilatation is present. Cholecystectomy. PANCREAS: Unremarkable. SPLEEN: Unremarkable. ADRENAL GLANDS: Unremarkable. KIDNEYS AND URETERS: No significant interval change to the large left renal subcapsular hematoma measuring 9.3 x 11.4 x 17.4 cm in the transverse by AP by craniocaudal dimensions, respectively. Previously this measured 9.4 x 11.7 x 17.6 cm on 07/27/2016. There is heterogeneous attenuation within the hematoma indicating evolving blood products. Fluid tracks along the left retroperitoneum which has demonstrated interval decrease. Stable right renal cyst and scattered right calculi. No evidence of hydronephrosis bilaterally. Left renal cysts are again appreciated. BLADDER: Partially distended which limits evaluation. No focal abnormalities. GASTROINTESTINAL TRACT: The small and large bowel are unremarkable. The appendix is not well seen. ABDOMINAL WALL: No hernia is demonstrated. LYMPH NODES: No evidence of lymphadenopathy within the abdomen or pelvis by CT criteria. PELVIC VISCERA: The prostate is enlarged measuring 5.5 cm in transverse dimension. OSSEOUS STRUCTURES: No suspicious or acute osseous abnormality. IMPRESSION: 1. No evidence of aortic dissection. 2. Multiple scattered subsegmental pulmonary emboli without evidence of right heart strain. No evidence of pulmonary infarction. Interval resolution of the trace bilateral pleural effusions with improved bibasilar consolidations. 3. Stable size of the left subcapsular perinephric hematoma with evolving blood products. There is decreased blood products tracking within the left retroperitoneum. 4. Atherosclerotic disease as detailed above. Assessment/Plan Assessment: 70-year-old gentleman with a past medical history of hypertension, HCV, GERD, hyperlipidemia, dyspepsia, mitral valve replacement in May 2014 (bovine) and a history of multiple nephrolithiasis, recent admission July 24 for left renal subcapsular hematoma with extension to the retroperitoneum status post lithotripsy ESWL procedure, came to ED for evaluation of right sided severe chest pain, CTA chest showed bilateral PE, Dopplers of lower extremities showed deep venous thrombosis of the peroneal veins. Problem list Bilateral Pulmonary embolism DVT Mitral valve replacement Hypertension Left renal subcapsular hematoma Plan: We'll admit to telemetry floor Echo to evaluate for RV strain IV heparin started after clearance from nephrology, watch for hematuria and inform nephrology immediately Will obtain cardio consult Pulmonary aware of patient, appreciate recommendations continue levothyroxin, chlorthalidone, tamsulosin, statin, metoprolol, amlodipine, allopurinol DVT ppx Heprin drip Patient is Full code. As Ranked By This Provider Problem List: 1. Traumatic perinephric hematoma of left kidney 2. Pulmonary embolism Core Measures/Miscellaneous Acute Coronary Syndrome ACS Diagnosis: No Cerebrovascular Accident CVA/TIA Diagnosis: No Congestive Heart Failure CHF Diagnosis: No Venous Thromboembolism VTE Risk Factors: Age > 40 [facility] prophylaxis d/t: No contraindications No VTE Pharm Prophylaxis d/t: No contraindications VTE Diagnosis: Yes VTE Type: Pulmonary Embolism VTE Confirmed by (Test): CT CHEST ANGIOGRAM Severe Sepsis Severe Sepsis Present: No Septic Shock Septic Shock Present: No Miscellaneous Documentation Attending Case Discussed With: ROMÁN WILLIAMSON MD Primary Care Physician: ABDULLAHI MUNOZ MD Patient sees these Specialists Dr. Allison Level of Patient Care: Telemetry ROMÁN WILLIAMSON MD 08/16/16 1612: Attending MD Review Statement Attending Statement Attending MD Statement: examined this patient, discuss w/resident/PA/INDUSTRIAL FABRIC CUTTER, agreed w/resident/PA/INDUSTRIAL FABRIC CUTTER, reviewed EMR data (avail), discussed with nursing, reviewed images Attending Assessment/Plan: 70-year-old male with multiple medical problems including hypertension, CAD, CABG and bioprosthetic aortic valve and recent admission to [facility] from July 24 to the ,he had a renal subcapsular hematoma as a complication of ESWL on aspirin. He was watched here and treated for blood loss anemia, hematuria followed by urology and developed demand ischemia and pleural effusion. Now returns with acute pleuritic chest pain with a CTA showing bilateral pulmonary embolism with no evidence of right heart strain. The ED and the house staff spoke to Dr. Pavon and at this point we are going to use IV unfractionated heparin. We'll keep a close watch on the CBC, and a close watch on the hematuria. We'll get Doppler of his lower extremities to make sure there is no large clot burden and will get an echocardiogram. We'll continue his other cardiac medications. Will let Dr. Allison know he's here and the decision really will be what long-acting agent can be used. We will likely need to use Coumadin in the long-term because of the antidote and reversibility. EMILY VILLANUEVA 08/16/16 1655: Resident Review Statement Resident Statement: examined this patient, discussed with commander internal affairs, agreed with commander internal affairs Other Findings: Patient is 70 year old male with PMH of HTN, CAD, , CABG, MVR with bovin valve , nephrolithiasios, left subcapsular renal hematoma ( 07/24/16), came with chief complain of right sided chest pain. Patient states that his chest pain started last night while he was watching TV. He described it as someone was stabbing him in the chest, pain was 10/10, radiating to the back. Patient states that this morning when the visiting nurse checked his BP, it was elevated to 200/87 so he came to ER. Patient had 325 mg aspirin, nitroglycerine patch prior to coming in. His CTA chest was significant for b/l pulmonary embolism so he was started on IV heprin drip after clarification with Dr. Schroeder as the patient has PMH of left subcapsular hematoma. Vitals as above (stable) Labs HB 12.4, 8.6 on 08/03, BEP normal, ALK phos elevated to 182 Physical exam: Alert oriented, patient was grabbing his right chest and looked in mild distress HEENt normal, S1, S2, normal air entery on auscultation, abdomen non tender, healing of bruises on anterior aspect of left lower abdomen and back appreciated , no leg swelling, pedal pulses palpable. Imaging done: CAT - CT ABD & PELVIS ANGIOGRAM; CTA CHEST-AORTIC DISSECTION 1. No evidence of aortic dissection. 2. Multiple scattered subsegmental pulmonary emboli without evidence of right heart strain. No evidence of pulmonary infarction. Interval resolution of the trace bilateral pleural effusions with improved bibasilar consolidations. 3. Stable size of the left subcapsular perinephric hematoma with evolving blood products. There is decreased blood products tracking within the left retroperitoneum. 4. Atherosclerotic disease as detailed above. Problem list, Assessment and Plan B/L pulmonary embolism Patient was started on heprin drip in ER after clarifying with urology ( Dr. Pavon) as the patient has hx of subcapsular renal hematoma 07/24. Requested for Pulmonary consult will follow up their recommendations. Will obtain doppler b/l lower extermeties to evaluate for clot burden Patient has a hx of demand ischemia during his previous hospital stay 07/24-08/03 Will obtain echocardiogram to evaluate for right heart strain and call cardiology consult with Dr. Allison in am. Patient saw dr. allison post discharge and is scheduled fo stress test in the last week of august. Hx of subcapsular left renal hematoma WIll watch closly for hematuria as patient is on anticoagulation and there is a fear of progression of hemtoma. Will call urology is that happens. Home meds were continued including levothyroxin, chlorthalidone, tamsulosin, statin, metoprolol, amlodipine, allopurinol DVT ppx Heprin drip Patient is Full code.
[2016-08-16 15:03] LABS: PT 12.7 SEC (9.4-12.5); PTT 29 SEC (25-37)
--- NOTE | 2016-08-16 15:32 | CT SCAN REPORT ---
EXAMINATION: CT ANGIOGRAM CHEST, ABDOMEN AND PELVIS WITHOUT AND WITH CONTRAST INTERPRETING VASCULAR \T\ INTERVENTIONAL RADIOLOGIST: Anastacia Blake M.D./PhD CLINICAL INFORMATION: Chest pain to back. Recent hematoma. TECHNIQUE: Multiple axial images were obtained through the chest, abdomen and pelvis using a [address] scan before and after administration of IV contrast. 100 mL of Optiray 350 was administered intravenously. Images were evaluated on independent dedicated 3-D workstation and 3-D images were reconstructed with concurrent radiologist supervision and subsequently interpreted. COMPARISON: 07/27/2016, 07/24/2016. DLP: 1497.54 mGy-cm. FINDINGS: VASCULAR: 1. Ascending thoracic aorta: Aortic valve replacement. No evidence of aneurysm, dissection or stenosis. 2. Thoracic aortic arch: Two-vessel aortic arch. Atherosclerosis of the arch without evidence of aneurysm, stenosis or dissection. Atherosclerotic disease of the branch vessels without evidence of stenosis. 3. Descending thoracic aorta: Atherosclerosis without evidence of aneurysm, dissection or stenosis. 4. Mesenteric arteries: Atherosclerotic disease is present at the origin of the mesenteric arteries with mild stenosis at the origin of the celiac axis and inferior mesenteric artery. 5. Renal arteries: Single patent right renal artery. 2 left renal arteries are patent. 6. Abdominal aorta: Moderate atherosclerotic disease of the abdominal aorta with ectasia measuring up to 2.3 x 2.2 cm with small mural thrombus. 7. Right iliofemoral system: Moderate scattered atherosclerotic disease throughout the visualized right iliofemoral system without evidence of aneurysm, dissection or stenosis. 8. Left iliofemoral system: Moderate scattered atherosclerotic disease of the left iliofemoral system. There is moderate stenosis at the origin of the left internal iliac artery. No evidence of aneurysm or dissection. 9. Pulmonary arteries: Scattered subcentimeter pulmonary emboli are seen bilaterally with a nonocclusive segmental thrombus within the left posterior basilar segment artery. As above, there is no evidence of pulmonary infarction. No evidence of reflux of contrast into the hepatic veins or right septal bowing to suggest right heart strain. NONVASCULAR: CHEST: LUNGS: Dependent changes along the posterior lower lobes with subsegmental atelectasis with linear configuration. Interval resolution of the trace bilateral pleural effusions with decreased consolidation of the posterior lower lobes. No evidence of pneumothorax. MEDIASTINUM: Heart size is normal. Status post aortic valve replacement. Status post coronary artery bypass grafting. No evidence of pericardial effusion or mediastinal lymphadenopathy. Limited views of the thyroid gland are unremarkable. PERICARDIUM/PLEURA: There is no significant effusion. No pleural mass or thickening. CHEST WALL/AXILLA: No evidence of axillary lymphadenopathy. ABDOMEN/PELVIS: LIVER, GALLBLADDER, BILIARY TREE: The liver is normal in size, shape, and attenuation. No focal hepatic lesion or biliary ductal dilatation is present. Cholecystectomy. PANCREAS: Unremarkable. SPLEEN: Unremarkable. ADRENAL GLANDS: Unremarkable. KIDNEYS AND URETERS: No significant interval change to the large left renal subcapsular hematoma measuring 9.3 x 11.4 x 17.4 cm in the transverse by AP by craniocaudal dimensions, respectively. Previously this measured 9.4 x 11.7 x 17.6 cm on 07/27/2016. There is heterogeneous attenuation within the hematoma indicating evolving blood products. Fluid tracks along the left retroperitoneum which has demonstrated interval decrease. Stable right renal cyst and scattered right calculi. No evidence of hydronephrosis bilaterally. Left renal cysts are again appreciated. BLADDER: Partially distended which limits evaluation. No focal abnormalities. GASTROINTESTINAL TRACT: The small and large bowel are unremarkable. The appendix is not well seen. ABDOMINAL WALL: No hernia is demonstrated. LYMPH NODES: No evidence of lymphadenopathy within the abdomen or pelvis by CT criteria. PELVIC VISCERA: The prostate is enlarged measuring 5.5 cm in transverse dimension. OSSEOUS STRUCTURES: No suspicious or acute osseous abnormality. IMPRESSION: 1. No evidence of aortic dissection. 2. Multiple scattered subsegmental pulmonary emboli without evidence of right heart strain. No evidence of pulmonary infarction. Interval resolution of the trace bilateral pleural effusions with improved bibasilar consolidations. 3. Stable size of the left subcapsular perinephric hematoma with evolving blood products. There is decreased blood products tracking within the left retroperitoneum. 4. Atherosclerotic disease as detailed above. This critical result was discussed with Dr. Jaquez at 1252 on 08/16/2016 and it was ascertained that the content and urgency of the report was understood at the time of direct communication.
--- NOTE | 2016-08-16 16:12 | Admission Certification ---
Admission Certification Certification Statement - As attending physician, I certify that at the time of - admission, based on clinical presentation, severity of - symptoms, need for further diagnostic testing and - therapeutic interventions, and risk of adverse outcomes - without in-hospital treatment, in my clinical assessment, - this patient requires an acute hospital stay for a minimum - of two nights or longer. I have also considered psychsocial - factors such as support system, advanced age, financial - issues, cognitive issues, and failed out-patient treatments, - past re-admission history, safety of patient, and lack of - compliance as applicable. Specific rationale supporting this admission is: Bilateral pulmonary embolism in pt with recent admission for renal hematoma.
--- NOTE | 2016-08-16 17:29 | ULTRASOUND REPORT ---
EXAMINATION: BILATERAL LOWER EXTREMITY VENOUS ULTRASOUND CLINICAL INFORMATION: Multiple pulmonary emboli found on CTA of the chest. Evaluate for DVT. COMPARISON: CT of the chest dated 08/16/2016. TECHNIQUE: Doppler spectral analysis and color flow Doppler imaging was performed of the lower extremities. Compression and augmentation maneuvers were performed. FINDINGS: RIGHT LOWER EXTREMITY VENOUS DOPPLER ULTRASOUND: The right common femoral vein, greater saphenous vein takeoff, femoral vein, and popliteal vein are normally compressible with normal augmentation responses and phasic changes seen with Doppler imaging. The midcalf peroneal and posterior tibial veins are patent as well. No popliteal cyst is seen. LEFT LOWER EXTREMITY VENOUS DOPPLER ULTRASOUND: Occlusive deep venous thrombus is seen in one of the peroneal veins in the calf extending up to the tibia peroneal trunk. The remainder of the deep veins of the left lower extremity in the calf and in the thigh are patent. The left common femoral vein, greater saphenous vein takeoff, femoral vein, and popliteal vein are normally compressible with normal augmentation responses and phasic changes seen with Doppler imaging. The midcalf posterior tibial veins are patent as well. IMPRESSION: 1. Positive deep venous thrombosis in one of the peroneal veins in the left calf. Remainder of the deep venous system in the left lower extremity patent. 2. No evidence of deep venous thrombosis in the right lower extremity. This critical result was discussed with Dr. Jorge Decker 08/16/2016, 5:10 PM and it was ascertained that the content and urgency of this report was understood at the time of direct communication.
[2016-08-16 17:50] VITALS: BP 150/78
--- NOTE | 2016-08-16 17:58 | Cons- Pulmonary ---
General Information and HPI Consulting Request Date of Consult: 08/16/16 Requested By: Dr. Clay Reason for Consult: Pulmonary emboli Source of Information: patient, old records Exam Limitations: no limitations History of Present Illness: The patient is a 70-year-old male with a past medical history significant for CAD status post CABG, mitral valve replacement with bovine valve, hypertension, obstructive sleep apnea on nasal CPAP, and nephrolithiasis. The patient was most recently hospitalized in mid July following a lithotripsy which resulted in a spontaneous left subcapsular renal hematoma. The patient presented to the ED with complaints of right-sided chest pain which began acutely while the patient was sitting and watching television. The pain radiated posteriorly. The patient has blood pressure checked by his visiting nurse which was 200/87 and he therefore came to the ED. A CT angiogram was performed that demonstrated multiple scattered subsegmental pulmonary emboli without evidence of right heart strain. There is no evidence of pulmonary infarct. The previously documented trace bilateral effusions and basilar consolidations have resolved. The left subcapsular perinephric hematoma was seen however there was decreased blood products tracking into the left retroperitoneum. Atherosclerotic disease was seen as well. The case was discussed with urology, and the patient was cleared to start IV heparin. Allergies/Medications Allergies: Coded Allergies: NO KNOWN ALLERGIES (07/24/16) Home Med List: Allopurinol 300 MG TABLET 300 MG PO D GOUT (Reported) Alprostadil (Caverject) 20 MCG KIT 20 MCG .ROUTE NEEDED PRN ERECTILE DYSFUNCTION (Reported) INTRACAVERNOSAL Amlodipine Besylate (Norvasc) 10 MG TABLET 10 MG PO HTN HTN (Reported) Reason to Stop at ADM: BP within control, will restart if it goes >120-130 Aspirin (Aspirin*) 325 MG TABLET 325 MG PO DAILY BLOOD THINNER (Reported) Reason to Stop at ADM: renal hematoma Chlorthalidone 25 MG TABLET 25 MG PO QAM CARDIAC (Reported) Docusate Sodium (Colace) 100 MG CAPSULE 1 CAP PO DAILY STOOL SOFTENER ( Reported) Ezetimibe (Zetia) 10 MG TABLET 10 MG PO D CHOLESTEROL (Reported) Ferrous Sulfate 325 MG (65 MG IRON) TABLET 325 MG PO BID ANEMIA (Reported) Fluticasone Propionate 50 MCG/ACTUATION SPRAY.SUSP 2 SPRAY NASB DAILY BREATHING (Reported) Gemfibrozil (Lopid) 600 MG TABLET 600 MG PO BID Cholesterol Guaifenesin (Mucinex) 600 MG TAB.ER.12H 1 TAB PO BID PRN Congestion Hydromorphone HCl (Dilaudid) 4 MG TABLET 1 TAB PO 4XDP PRN Severe pain 7-10 Lactose-Reduced Food (Ensure Liquid) 237 ML LIQUID 1 CAN PO DAILY PRN NUTRITIONAL SUPPLEMENT (Reported) Levothyroxine Sodium 137 MCG TABLET 137 MCG PO QAM HYPOTHYROIDISM (Reported) Magnesium Hydroxide (Milk Of Magnesia) 400 MG/5 ML ORAL.SUSP 5 ML PO BID PRN CONSTIPATION Memantine HCl (Namenda XR) 28 MG CAP.SPR.24 1 CAP PO DAILY MEMORY (Reported) Metoprolol Succinate 25 MG TAB 75 MG PO BID HYPERTENSION Nitroglycerin (Nitroglycerin Patch) 0.4 MG/HOUR PATCH.TD24 0.4 MG TOP DAILY Chest pain Omeprazole 40 MG CAPSULE.DR 40 MG PO D GERD (Reported) Polyethylene Glycol 3350 (Miralax) 17 GRAM POWD.PACK 1 PAC PO DAILY PRN CONSTIPATION dissolve in water Prednisolone Acetate (Omnipred) 1 % DROPS.SUSP 1 GTT OPH DAILY EYE(S) ( Reported) Rosuvastatin Calcium (Crestor) 20 MG TABLET 20 MG PO D CHOLESTEROL (Reported) Sildenafil Citrate (Viagra) 100 MG TABLET 1 TAB PO DAILY NEEDED ERECTILE DYSFUNCTION (Reported) 1 hour before sexual activity Tamsulosin HCl (Flomax) 0.4 MG CAP.ER.24H 0.4 MG PO QPM BPH (Reported) Current Medications: Current Medications Sig/Geri Start time Last Medication Dose Route Stop Time Status Admin Acetaminophen 650 MG Q8P PRN 08/16 1630 AC PO Allopurinol 300 MG DAILY 08/17 1000 AC PO Amlodipine Besylate 10 MG DAILY 08/17 1000 AC PO Atorvastatin Calcium 20 MG 1700 08/16 1700 AC PO Chlorthalidone 25 MG QAM 08/17 1000 AC PO Docusate Sodium 100 MG DAILY 08/16 1603 AC PO Ezetimibe 10 MG DAILY 08/17 1000 AC PO Ferrous Sulfate 325 MG BID 08/16 2200 AC PO Fluticasone 2 SPRAY DAILY 08/16 1604 AC Propionate JEF Gemfibrozil 600 MG BID 08/16 2200 AC PO Guaifenesin 600 MG BID PRN 08/16 1615 AC PO Heparin Sodium 0 .STK-MED ONE 08/16 1421 DC (Porcine) .ROUTE Heparin Sodium 5,000 UNIT ONCE ONE 08/16 1400 DC 08/16 (Porcine) IV 08/16 1401 1415 Heparin Sodium 25,000 UNIT Q24H 08/16 1400 AC 08/16 (Porcine) IV 1415 Sodium Chloride 500 ML Hydromorphone HCl 4 MG Q6P PRN 08/16 1615 UNVr PO Ketorolac 15 MG Q12P PRN 08/16 1630 DCr Tromethamine IV Levothyroxine Sodium 0.137 MG DAILY AC 08/17 0700 AC PO Magnesium Hydroxide 5 ML BID PRN 08/16 1615 UNVr PO Memantine 28 MG DAILY 08/17 1000 UNVr PO Metoprolol Tartrate 75 MG BID 08/16 2200 AC PO Morphine Sulfate 4 MG ONCE ONE 08/16 1045 DC 08/16 IV 08/16 1046 1048 Morphine Sulfate 0 .STK-MED ONE 08/16 1038 DC .ROUTE Nitroglycerin 0.4 MG DAILY 08/16 1607 AC TOP Nitroglycerin 0.4 MG ONCE ONE 08/16 1045 DC 08/16 SL 08/16 1046 1037 Omeprazole 40 MG DAILY AC 08/17 0700 AC PO Polyethylene Glycol 17 GM DAILY 08/17 1000 AC PO Prednisolone 1 GTT DAILY 08/17 1000 AC OPH Tamsulosin HCl 0.4 MG QPM 08/16 2200 AC PO Review of Systems Review of Systems All Other Systems: Reviewed and Negative Past History Travel History Traveled to [place] past 21 day No Medical History Neurological: CVA EENT: NONE Cardiovascular: CAD, hypertension, hyperlipidemia, myocardial infarction, PVD, syncope, bioprosthetic aortic valve replacement with 2 bypass grafts post-op atrial fibrillation Respiratory: NONE Gastrointestinal: GERD Hepatic: hepatitis C Renal: nephrolithiasis, urinary incontinence, renal insufficiency Musculoskeletal: gout, osteoarthritis Psychiatric: NONE Endocrine: diabetes, hypothyroidism Blood Disorders: NONE Cancer(s): NONE 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 Home Services at Home: Nursing Smoking Status: Never Smoked ETOH Use: denies use Illicit Drug Use: denies illicit drug use Functional Ability ADLs Independent: dressing, eating, toileting, bathing. Ambulation: independent IADLs Independent: shopping, housework, finances, food prep, telephone, transportation , medication admin. Exam & Diagnostic Data Last 24 Hrs of Vital Signs/I&O Vital Signs Date Time Temp Pulse Resp B/P Pulse O2 O2 Flow FiO2 Ox Delivery Rate 08/16 1750 98.3 80 18 150/78 95 Nasal 2.0L Cannula 08/16 1618 97.7 82 18 124/80 96 Nasal 2.0L Cannula 08/16 1440 97.5 67 16 157/76 96 Nasal 2.0L Cannula 08/16 1152 72 16 128/65 99 Nasal 2.0L Cannula 08/16 1049 87 148/80 08/16 1040 95 08/16 1038 97.6 76 20 147/95 95 Room Air Intake & Output 08/16 1600 08/16 0800 08/16 0000 Intake Total Output Total Balance Patient 211 lb Weight Physical Exam General Appearance: alert, awake, comfortable Head: atraumatic, normal appearance Neck: supple Respiratory: quiet respiration Cardiovascular: S1 and S2 heard, distant Gastrointestinal: normal bowel sounds, soft, non-tender Extremities: no edema Skin: intact, normal color, warm/dry Last 48 Hrs of Labs/Gregory: Laboratory Tests 08/16/16 1042: Anion Gap 8, Estimated GFR > 60, BUN/Creatinine Ratio 15.0, Glucose 93, Calcium 9.4, Total Bilirubin 1.2, AST 23, ALT 28, Alkaline Phosphatase 182 H, Troponin I < 0.01, Quy-L-Fzplbqehpca Pept 210 H, Total Protein 7.1, Albumin 3.6, Globulin 3.5, Albumin/Globulin Ratio 1.0 L, TSH 1.420, Free T4 2.26, PT 12.7 H , INR 1.21 H, APTT 29, D-Dimer 2007 H, CBC w Diff NO MAN DIFF REQ, RBC 4.35 L , MCV 87.2, MCH 28.6, RDW 16.8 H, MPV 6.9 L, Gran % 61.4, Lymphocytes % 24.6, Monocytes % 11.2 H, Eosinophils % 2.1, Basophils % 0.7, Absolute Granulocytes 3.7, Absolute Lymphocytes 1.5, Absolute Monocytes 0.7 H, Absolute Eosinophils 0.1, Absolute Basophils 0, PUBS MCHC 32.8 L Diagnostic Data CXR Results 1. No evidence of aortic dissection. 2. Multiple scattered subsegmental pulmonary emboli without evidence of right heart strain. No evidence of pulmonary infarction. Interval resolution of the trace bilateral pleural effusions with improved bibasilar consolidations. 3. Stable size of the left subcapsular perinephric hematoma with evolving blood products. There is decreased blood products tracking within the left retroperitoneum. 4. Atherosclerotic disease as detailed above. Assessment/Plan Impression/Plan: 1. Bilateral subsegmental pulmonary emboli without evidence of heart strain or hemodynamic instability. 2. Recent left subcapsular hematoma following lithotripsy, improved on repeat imaging. 3. DENA on nasal CPAP. 4. S/P MVR. 5. CAD, s/p CABG. Recommendations: * Continue IV Heparin. * Monitor for bleeding. * Nocturnal Bipap. * Follow up lower extremity dopplers. * Neb treatments as needed. * Supplemental oxygen to maintain sats greater than 92%. * Continue home medications. Consult Acknowledgment - Thank you for your consult request.
[2016-08-16 20:53] LABS: PTT 52 SEC (25-37)
[2016-08-16 23:59] VITALS: BP 130/60
[2016-08-17 00:07] VITALS: BP 120/60
[2016-08-17 03:52] LABS: ABSOLUTE BASOPHIL COUNT 0.1 /CUMM (0.0-0.2); ABSOLUTE EOSINOPHIL COUNT 0.1 /CUMM (0.0-0.7); ABSOLUTE GRANULOCYTE CT 2.3 /CUMM (1.4-6.5); ABSOLUTE MONOCYTE COUNT 0.6 /CUMM (0.10-0.60); BASOPHIL % 1.3 % (0.0-2.0); EOSINOPHIL % 2.6 % (0-5); GRANULOCYTE % 44.8 % (42.2-75.2); HEMATOCRIT 33.5 % (42-52); MEAN CORPUSCULAR HGB 28.6 PG (27.0-31.0); MEAN CORPUSCULAR VOLUME 86.5 FL (80.0-94.0); PLATELET COUNT 330 /CUMM (130-400); RBC DISTRIBUTION WIDTH 17.2 % (11.5-14.5); RED BLOOD CELL CT 3.88 /CUMM (4.70-6.10); WHITE BLOOD CELL COUNT 5.1 /CUMM (4.8-10.8)
[2016-08-17 04:01] LABS: PT 13.2 SEC (9.4-12.5); PTT 70 SEC (25-37)
[2016-08-17 08:32] VITALS: BP 150/80
--- NOTE | 2016-08-17 09:02 | PN- Housestaff ---
BRENDENKIRBYSAMUEL ROSEN 08/17/16 0902: Subjective Follow-up For: Bilateral PE DVT Subcapsular hematoma Tele-Events Since Last Visit: -Sinus rhythm, 64-72 Subjective: Seen and examined patient, offers no complaints. Denies chest pain, shortness of breath Review of Systems Constitutional: Denies: chills, diaphoresis, fever, malaise, weakness, unexplained weight loss. Cardiovascular: Denies: chest pain, edema, orthopena, palpitations, peripheral edema, syncope. Respiratory: Denies: cough, hemoptysis, orthopnea, short of breath, sputum production, stridor, wheezing. Objective Last 24 Hrs of Vital Signs/I&O Vital Signs Date Time Temp Pulse Resp B/P Pulse O2 O2 Flow FiO2 Ox Delivery Rate 08/17 1116 68 140/60 08/17 0923 95 Nasal 1.0L Cannula 08/17 0832 97.7 64 20 150/80 95 Room Air 08/17 0800 Nasal 2.0L Cannula 08/17 0029 69 94 08/17 0007 99.0 68 18 120/60 96 CPAP 08/17 0000 CPAP 2.0L 08/16 2359 98.1 70 18 130/60 90 Room Air 08/16 2223 77 96 08/16 2118 89 130/70 08/16 2118 89 130/70 08/16 2111 Nasal 2.0L Cannula 08/16 1800 95 Nasal 2.0L Cannula 08/16 1750 98.3 80 18 150/78 95 Nasal 2.0L Cannula 08/16 1618 97.7 82 18 124/80 96 Nasal 2.0L Cannula Intake & Output 08/17 1600 08/17 0800 08/17 0000 Intake Total 200 900 Output Total 450 550 Balance -250 350 Intake, IV 200 150 Intake, Oral 750 Number 0 Bowel Movements Output, Urine 450 550 Patient 206 lb 211 lb Weight Physical Exam General Appearance: Alert, Oriented X3, Cooperative, No Acute Distress Cardiovascular: Regular Rate, Normal S1, Normal S2 Lungs: Clear to Auscultation, Normal Air Movement Abdomen: Soft, No Tenderness Current Medications: Current Medications Sig/Geri Start time Last Medication Dose Route Stop Time Status Admin Acetaminophen 650 MG Q8P PRN 08/16 1630 AC PO Allopurinol 300 MG DAILY 08/17 1000 AC 08/17 PO 1120 Amlodipine Besylate 10 MG DAILY 08/17 1000 AC 08/17 PO 1118 Atorvastatin Calcium 20 MG 1700 08/16 1700 AC 08/16 PO 1934 Chlorthalidone 25 MG QAM 08/17 1000 AC 08/17 PO 1115 Docusate Sodium 100 MG DAILY 08/16 1603 AC 08/17 PO 1114 Ezetimibe 10 MG DAILY 08/17 1000 AC 08/17 PO 1119 Ferrous Sulfate 325 MG BID 08/16 2200 AC 08/17 PO 1114 Fluticasone 2 SPRAY DAILY 08/16 1604 AC 08/16 Propionate JEF 1932 Gemfibrozil 600 MG BID 08/16 2200 AC 08/17 PO 1115 Guaifenesin 600 MG BID PRN 08/16 1615 AC PO Heparin Sodium 3,800 UNIT ONCE ONE 08/16 2245 DC 08/16 (Porcine) IV 08/16 2246 2319 Heparin Sodium 25,000 UNIT Q24H 08/16 1400 AC 08/17 (Porcine) IV 0715 Sodium Chloride 500 ML Hydromorphone HCl 0.2 MG ONCE ONE 08/17 1015 DC IV 08/17 1016 Hydromorphone HCl 1 MG ONCE ONE 08/17 0500 DC 08/17 IV 08/17 0501 0506 Hydromorphone HCl 1 MG ONCE ONE 08/16 2100 DC 08/16 IV 08/16 2101 2118 Hydromorphone HCl 4 MG Q6P PRN 08/16 1615 AC 08/17 PO 0312 Ketorolac 15 MG Q12P PRN 08/16 1630 DC Tromethamine IV Levothyroxine Sodium 0.137 MG DAILY AC 08/17 0700 AC 08/17 PO 0736 Magnesium Hydroxide 30 ML BID PRN 08/16 1615 AC PO Memantine 10 MG BID 08/17 1000 AC 08/17 PO 1117 Metoprolol Tartrate 75 MG BID 08/16 2200 AC 08/17 PO 1116 Nitroglycerin 0.4 MG DAILY 08/16 1607 AC 08/17 TOP 1119 Omeprazole 40 MG DAILY AC 08/17 0700 AC 08/17 PO 0736 Patient Medication 1 UNIT 1700 08/17 1700 AC Teaching ED 08/17 1701 Polyethylene Glycol 17 GM DAILY 08/17 1000 AC 08/17 PO 1116 Prednisolone 1 GTT DAILY 08/17 1000 AC 08/17 OPH 1118 Tamsulosin HCl 0.4 MG QPM 08/16 2200 AC 08/16 PO 211 Warfarin Sodium 5 MG COUMADIN 1700 08/17 1700 AC PO 08/17 2359 Last 24 Hrs of Lab/Gregory Results Last 24 Hrs of Labs/Mics: Laboratory Tests 08/17/16 0320: APTT Cancelled 08/17/16 0320: Anion Gap 8, Estimated GFR > 60, BUN/Creatinine Ratio 17.5, Total Bilirubin 0.9, Direct Bilirubin 0.4, AST 21, ALT 33, Alkaline Phosphatase 139 H, Troponin I < 0.01, Total Protein 6.0 L, Albumin 2.9 L, PT 13.2 H, INR 1.26 H, APTT 70 H, CBC w Diff NO MAN DIFF REQ, RBC 3.88 L, MCV 86.5, MCH 28.6, RDW 17.2 H, MPV 7.0 L, Gran % 44.8, Lymphocytes % 39.3, Monocytes % 12.0 H, Eosinophils % 2.6, Basophils % 1.3, Absolute Granulocytes 2.3, Absolute Lymphocytes 2.0, Absolute Monocytes 0.6, Absolute Eosinophils 0.1, Absolute Basophils 0.1, PUBS MCHC 33.0 08/16/162006: APTT 52 H Assessment/Plan Assessment: 70-year-old gentleman with a past medical history of hypertension, HCV, GERD, hyperlipidemia, dyspepsia, mitral valve replacement in May 2014 (bovine) and a history of multiple nephrolithiasis, recent admission July 24 for left renal subcapsular hematoma with extension to the retroperitoneum status post lithotripsy ESWL procedure, came to ED for evaluation of right sided severe chest pain, CTA chest showed bilateral PE, Dopplers of lower extremities showed deep venous thrombosis of the peroneal veins. Problem list Bilateral Pulmonary embolism DVT Mitral valve replacement Hypertension Left renal subcapsular hematoma Plan: Echo pending On IV heparin started after clearance from nephrology, watch for hematuria and inform nephrology immediately Will obtain cardio consult heme/onc consult for questionable hypercoagulable disorder Pulmonary on board , appreciate recommendations continue levothyroxin, chlorthalidone, tamsulosin, statin, metoprolol, amlodipine, allopurinol DVT ppx Heprin drip Patient is Full code. Problem List: 1. Traumatic perinephric hematoma of left kidney 2. Acute blood loss as cause of postoperative anemia 3. Pulmonary embolism 4. Chest pain Pain Ratin Pain Location: na Pain Goal: Pain 4 or less (c) Pain Plan: current regimen Tomorrow's Labs & Rationales: cbc CLAY GARCIA,ROMÁN 08/17/16 1346: Attending MD Review Statement Attending Statement Attending MD Statement: examined this patient, discuss w/resident/PA/CAR BODY INSPECTOR, agreed w/resident/PA/CAR BODY INSPECTOR, reviewed EMR data (avail), discussed with nursing, discussed with case mgmt, reviewed images Attending Assessment/Plan: Patient feels better today. He feels that his pleuritic pain has gotten better. We have him on IV heparin. He is a 70-year-old who is here with acute bilateral pulmonary embolism after recent hospital stay from Jul 24 to Aug 03 for a renal subcapsular hematoma as a complication of ESWL with patient on aspirin. We spoke to Dr. Allison and Dr. Pavon. We are going to start Coumadin. We are going to bridge him with IV heparin and Coumadin. We will keep the INR therapeutic at all times. We will get hematology involved because Dr. Allison and Dr. Lemon feel that he might have an underlying hypercoagulable state or ?an occult malignancy given how vigorously active he is , given his weight loss and given the bilateral PE with DVT. We are going to follow-up on his echocardiogram. Watch closely for bleeding because if he bleeds he'll need an IVC filter.
--- NOTE | 2016-08-17 09:35 | Cons- Cardiology ---
General Information and HPI Consulting Request Date of Consult: 08/17/16 Requested By: CLAY GARCIA,ROMÁN Zaragoza History of Present Illness: Js is a 70 year old male with history of hypertension and coronary artery disease, status post inferior wall myocardial infarction, which he experienced in December of 2002. He also carries a history of moderate to severe aortic stenosis for which he recently underwent surgery. The aortic valve replacement procedure was accompanied by placement of two bypass grafts. He did have some post operative atrial fibrillation. Finally, the patient has significant sleep apnea. Over the past few days this patient has noted leg discomfort bilaterally along with a numbness of the lower extremities. He then developed a severe and sharp right sided pleuritic chest pain. He has a non-productive cough but denies any fever or chills. He also denies shortness of breath. The patient has no pre- cordial exertional chest pressure, lightheadedness or palpitations. It should be noted that this patient has been losing weight. It should be recalled that this patient had a recent bleeding episode after lithotripsy with a large residual hematoma. In the setting of the above this patient had a rise in cardiac enzymes consistent with a type 2 VT. He also had deep precordial T wave inversions on his ECG that were consistent with ischemia. His ECG is improved although there is an S1 Q3 pattern consistent with a PE. It should be noted that this patient underwent an open cholecystectomy at the [facility] which I believe was also complicated by bleeding and infection. His last echo showed a low normal EF of 50-55% with mild LVH and paradoxical septal motion consistent with a post-operative state. The left atrium is normal in size. Trace MR and TR is noted. To review this patient's prior history, Js underwent cardiac catheterization which disclosed multivessel coronary artery disease along with aortic stenosis. he had exertional chest discomfort relieved by rest along with shortness of breath. On last visit he also had lower extremity swelling and abdominal ascities that has improved with lasix. In the past this patient reported some very atypical symptoms described as an intermittent electric sensation across his chest which I felt was related to disc disease rather than cardiac disease by its description. He is also followed up by Dr. Barbosa for his peripheral vascular disease. Finally, Js has hypothyroidism and he attributes some of his weight gain to this condition. 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 It harbored a 70% proximal stenosis followed by a 90% mid stenosis and underwent PTCA with stent placement. He was also noted to have a left main with an unusually high takeoff. Allergies/Medications Allergies: Coded Allergies: NO KNOWN ALLERGIES (07/24/16) Home Med List: Allopurinol 300 MG TABLET 300 MG PO D GOUT (Reported) Alprostadil (Caverject) 20 MCG KIT 20 MCG .ROUTE NEEDED PRN ERECTILE DYSFUNCTION (Reported) INTRACAVERNOSAL Amlodipine Besylate (Norvasc) 10 MG TABLET 10 MG PO HTN HTN (Reported) Reason to Stop at ADM: BP within control, will restart if it goes >120-130 Aspirin (Aspirin*) 325 MG TABLET 325 MG PO DAILY BLOOD THINNER (Reported) Reason to Stop at ADM: renal hematoma Chlorthalidone 25 MG TABLET 25 MG PO QAM CARDIAC (Reported) Docusate Sodium (Colace) 100 MG CAPSULE 1 CAP PO DAILY STOOL SOFTENER ( Reported) Ezetimibe (Zetia) 10 MG TABLET 10 MG PO D CHOLESTEROL (Reported) Ferrous Sulfate 325 MG (65 MG IRON) TABLET 325 MG PO BID ANEMIA (Reported) Fluticasone Propionate 50 MCG/ACTUATION SPRAY.SUSP 2 SPRAY NASB DAILY BREATHING (Reported) Gemfibrozil (Lopid) 600 MG TABLET 600 MG PO BID Cholesterol Guaifenesin (Mucinex) 600 MG TAB.ER.12H 1 TAB PO BID PRN Congestion Hydromorphone HCl (Dilaudid) 4 MG TABLET 1 TAB PO 4XDP PRN Severe pain 7-10 Lactose-Reduced Food (Ensure Liquid) 237 ML LIQUID 1 CAN PO DAILY PRN NUTRITIONAL SUPPLEMENT (Reported) Levothyroxine Sodium 137 MCG TABLET 137 MCG PO QAM HYPOTHYROIDISM (Reported) Magnesium Hydroxide (Milk Of Magnesia) 400 MG/5 ML ORAL.SUSP 5 ML PO BID PRN CONSTIPATION Memantine HCl (Namenda XR) 28 MG CAP.SPR.24 1 CAP PO DAILY MEMORY (Reported) Metoprolol Succinate 25 MG TAB 75 MG PO BID HYPERTENSION Nitroglycerin (Nitroglycerin Patch) 0.4 MG/HOUR PATCH.TD24 0.4 MG TOP DAILY Chest pain Omeprazole 40 MG CAPSULE.DR 40 MG PO D GERD (Reported) Polyethylene Glycol 3350 (Miralax) 17 GRAM POWD.PACK 1 PAC PO DAILY PRN CONSTIPATION dissolve in water Prednisolone Acetate (Omnipred) 1 % DROPS.SUSP 1 GTT OPH DAILY EYE(S) ( Reported) Rosuvastatin Calcium (Crestor) 20 MG TABLET 20 MG PO D CHOLESTEROL (Reported) Sildenafil Citrate (Viagra) 100 MG TABLET 1 TAB PO DAILY NEEDED ERECTILE DYSFUNCTION (Reported) 1 hour before sexual activity Tamsulosin HCl (Flomax) 0.4 MG CAP.ER.24H 0.4 MG PO QPM BPH (Reported) Review of Systems Review of Systems: A twelve point review of systems is unremarkable other than the above. 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 Home Services at Home: Nursing Smoking Status: Never Smoked ETOH Use: denies use Illicit Drug Use: denies illicit drug use Functional Ability ADLs Independent: dressing, eating, toileting, bathing. Ambulation: independent IADLs Independent: shopping, housework, finances, food prep, telephone, transportation , medication admin. Exam & Diagnostic Data Vital Signs and I&O Vital Signs Date Time Temp Pulse Resp B/P Pulse O2 O2 Flow FiO2 Ox Delivery Rate 08/17 0832 97.7 64 20 150/80 95 Room Air 08/17 0029 69 94 08/17 0007 99.0 68 18 120/60 96 CPAP 08/17 0000 CPAP 2.0L 08/16 2359 98.1 70 18 130/60 90 Room Air 08/16 2223 77 96 08/16 2117 89 130/70 08/168 89 130/70 08/16 2110 Nasal 2.0L Cannula 08/16 1800 95 Nasal 2.0L Cannula 08/16 1750 98.3 80 18 150/78 95 Nasal 2.0L Cannula 08/16 1618 97.7 82 18 124/80 96 Nasal 2.0L Cannula 08/16 1440 97.5 67 16 157/76 96 Nasal 2.0L Cannula 08/16 1152 72 16 128/65 99 Nasal 2.0L Cannula 08/16 1049 87 148/80 08/16 1040 95 08/16 1038 97.6 76 20 147/95 95 Room Air Intake & Output 08/17 1600 08/17 0800 08/17 0000 08/16 1600 08/16 0800 08/16 0000 Intake Total 200 900 Output Total 450 550 Balance -250 350 Intake, IV 200 150 Intake, Oral 750 Number 0 Bowel Movements Output, Urine 450 550 Patient 206 lb 211 lb 211 lb Weight Physical Exam: General: WD/ WN male in NAD; alert and oriented x 3 HEENT: NC/AT, PERRL, EOMI, clear oropharynx Neck: no JVD, no carotid bruit Heart RRR with 3/6 systolic murmur Lungs: clear bilaterally Abdomen: soft, mildly tender, +ve bowel sounds Extremities: no edema Assessment/Plan Assessment/Plan * This patient is very active at baseline and has been walking since discharge. He nevertheless has developed lower extremity edema and multiple bilateral PE's. It should be noted that this patient has lost a large amount of weight recently without truly being on a diet. I would consider the possibility of a hypercoagulable state related to occult malignancy. * This patient fortunately does not have evidence of shortness of breath or increaseed RV pressures and there is no current hemodynamic instability. He should be anticoagulated with IV heparin and coumadin. There is a reversal agent for Pradaxa as well. There is concern about the patient's propensity for bleeding. As such, it is prudent to place an IVC filter in case this patient has any enlargement of his hematoma that requires discontinuation of anticoagulation. Consult Acknowledgment - Thank you for your consult request.
--- NOTE | 2016-08-17 10:51 | PN- Pulmonary ---
Subjective HPI/Critical Care Issues: The patient is awake and alert. He reports that his chest pain has significantly improved. He now rates his pain as a 5/10. He has no shortness of breath, cough, chest congestion or sputum production. He agrees team is working on pain control with him. He remains on heparin without evidence of bleeding. Objective Current Medications: Current Medications Sig/Geri Start time Last Medication Dose Route Stop Time Status Admin Acetaminophen 650 MG Q8P PRN 08/16 1630 AC PO Allopurinol 300 MG DAILY 08/17 1000 AC PO Amlodipine Besylate 10 MG DAILY 08/17 1000 AC PO Atorvastatin Calcium 20 MG 1700 08/16 1700 AC 08/16 PO 1934 Chlorthalidone 25 MG QAM 08/17 1000 AC PO Docusate Sodium 100 MG DAILY 08/16 1603 AC 08/16 PO 193 Ezetimibe 10 MG DAILY 08/17 1000 AC PO Ferrous Sulfate 325 MG BID 08/16 2200 AC 08/16 PO 2118 Fluticasone 2 SPRAY DAILY 08/16 1604 AC 08/16 Propionate JEF 1932 Gemfibrozil 600 MG BID 08/16 2200 AC 08/16 PO 2118 Guaifenesin 600 MG BID PRN 08/16 1615 AC PO Heparin Sodium 3,800 UNIT ONCE ONE 08/16 2245 DC 08/16 (Porcine) IV 08/16 2246 2319 Heparin Sodium 0 .STK-MED ONE 08/16 1421 DC (Porcine) .ROUTE Heparin Sodium 5,000 UNIT ONCE ONE 08/16 1400 DC 08/16 (Porcine) IV 08/16 1401 1415 Heparin Sodium 25,000 UNIT Q24H 08/16 1400 AC 08/17 (Porcine) IV 0715 Sodium Chloride 500 ML Hydromorphone HCl 0.2 MG ONCE ONE 08/17 1015 DC IV 08/17 1016 Hydromorphone HCl 1 MG ONCE ONE 08/17 0500 DC 08/17 IV 08/17 0501 0506 Hydromorphone HCl 1 MG ONCE ONE 08/16 2100 DC 08/16 IV 08/16 2101 2118 Hydromorphone HCl 4 MG Q6P PRN 08/16 1615 AC 08/17 PO 0312 Ketorolac 15 MG Q12P PRN 08/16 1630 DC Tromethamine IV Levothyroxine Sodium 0.137 MG DAILY AC 08/17 0700 AC 08/17 PO 0736 Magnesium Hydroxide 30 ML BID PRN 08/16 1615 AC PO Memantine 10 MG BID 08/17 1000 AC PO Metoprolol Tartrate 75 MG BID 08/16 2200 AC 08/16 PO 2118 Morphine Sulfate 4 MG ONCE ONE 08/16 1045 DC 08/16 IV 08/16 1046 1048 Nitroglycerin 0.4 MG DAILY 08/16 1607 AC TOP Nitroglycerin 0.4 MG ONCE ONE 08/16 1045 DC 08/16 SL 08/16 1046 1037 Omeprazole 40 MG DAILY AC 08/17 0700 AC 08/17 PO 0736 Polyethylene Glycol 17 GM DAILY 08/17 1000 AC 08/16 PO 1937 Prednisolone 1 GTT DAILY 08/17 1000 AC OPH Tamsulosin HCl 0.4 MG QPM 08/16 2199 AC 08/16 PO 2118 Vital Signs & I&O Last 24 Hrs of Vitals and I&O: Vital Signs Date Time Temp Pulse Resp B/P Pulse O2 O2 Flow FiO2 Ox Delivery Rate 08/17 0823 95 Nasal 1.0L Cannula 08/18 831 97.7 64 20 150/80 95 Room Air 08/17 0800 Nasal 2.0L Cannula 08/17 0029 69 94 08/17 0007 99.0 68 18 120/60 96 CPAP 08/17 0000 CPAP 2.0L 08/16 2359 98.1 70 18 130/60 90 Room Air 08/16 2223 77 96 08/168 89 130/70 08/16 2117 89 130/70 08/16 2110 Nasal 2.0L Cannula 08/16 1800 95 Nasal 2.0L Cannula 08/16 1750 98.3 80 18 150/78 95 Nasal 2.0L Cannula 08/16 1618 97.7 82 18 124/80 96 Nasal 2.0L Cannula 08/16 1440 97.5 67 16 157/76 96 Nasal 2.0L Cannula 08/16 1152 72 16 128/65 99 Nasal 2.0L Cannula 08/16 1049 87 148/80 Intake & Output 08/17 1600 08/17 0800 08/17 0000 Intake Total 200 900 Output Total 450 550 Balance -250 350 Intake, IV 200 150 Intake, Oral 750 Number 0 Bowel Movements Output, Urine 450 550 Patient 206 lb 211 lb Weight Physical Exam General Appearance: alert, awake, comfortable Head: atraumatic, normal appearance Neck: supple Respiratory: quiet respiration Cardiovascular: S1 and S2 heard, distant Gastrointestinal: normal bowel sounds, soft, non-tender Extremities: minimal edema Skin: intact, normal color, warm/dry Results Last 24 Hrs of Lab Results: Laboratory Tests 08/17/16 0320: APTT Cancelled 08/17/16 0320: Anion Gap 8, Estimated GFR > 60, BUN/Creatinine Ratio 17.5, Troponin I Pending, PT 13.2 H, INR 1.26 H, APTT 70 H, CBC w Diff NO MAN DIFF REQ, RBC 3.88 L, MCV 86.5, MCH 28.6, RDW 17.2 H, MPV 7.0 L, Gran % 44.8, Lymphocytes % 39.3, Monocytes % 12.0 H, Eosinophils % 2.6, Basophils % 1.3, Absolute Granulocytes 2.3, Absolute Lymphocytes 2.0, Absolute Monocytes 0.6, Absolute Eosinophils 0.1, Absolute Basophils 0.1, PUBS MCHC 33.0 08/16/162006: APTT 52 H 08/16/16 1451: PT Cancelled, INR Cancelled, APTT Cancelled Diagnostic Data US Findings: 1. Positive deep venous thrombosis in one of the peroneal veins in the left calf. Remainder of the deep venous system in the left lower extremity patent. 2. No evidence of deep venous thrombosis in the right lower extremity. Impression/Plan Impression/Plan Impression/Plan: 1. Bilateral subsegmental PEs without evidence of heart strain or hemodynamic instability. LE dopplers positive for DVT. 2. Recent left subcapsular hematoma following lithotripsy, improved on repeat imaging. 3. DENA on nasal CPAP. 4. S/P MVR. 5. CAD, s/p CABG. Recommendations: * Continue IV Heparin. * Monitor for bleeding. * IVC filter recommended by cardiology in the event of ongoing bleeding. * Consider hematology evaluation for possible hypercoagulable state and recommendations for IVC filter. * Nocturnal CPAP to continue. * Neb treatments as needed. * Supplemental oxygen to maintain sats greater than 92%. * Continue home medications. * Continue with pain pathway, and sure pain is well controlled. * Continue all supportive care.
--- NOTE | 2016-08-17 13:57 | Event Note ---
Event Note Event Note: Given the suspicion of an underlying hyper coaguable state, hematology consult service was requested. Dr. Long will evaluate the patient. heprin. If the patient starts bleeding, will stop IV anticoagulation and the patient will need IVC filter.
--- NOTE | 2016-08-17 15:37 | Cons- Hematology ---
General Information and HPI Consulting Request Date of Consult: 08/17/16 Requested By: ROMÁN WILLIAMSON MD Reason for Consult: Pulmonary embolus/DVT Source of Information: patient Exam Limitations: no limitations History of Present Illness: Mr. Soriano is a 70-year-old male with CAD s/p CABG, MV replacement with bovine valve, hypertension, DENA on nasal CPAP, and recent hospitalization for left subcapsular renal hematoma after lithotripsy who presented to the ED with chest pain. He was hospitalized on 07/24 with left renal subcapsular hematoma with extension to the retroperitoneum after lithotripsy ESWL. He was discharged on . During hospitalization he had chest pain radiating to ths back. He had some shortness of breath. He had elevated troponin at that time. There was concern for type II LA from anemia and discontinuation of aspirin secondary to the subcapsular hematoma. He was noted to have decrease oxygen saturation at that time. His symptoms improved at time of discharge. Since discharge, he states he felt well. He continued to have some abdominal pain. He was trying to be more active. He states he moves around for 1 hour a day. He denied any new pain until 2 days ago when he had severe chest pain in the right side radiating to the back. He denies any significant shortness of breath. He presented to the ED and was noted to have bilateral subsegmental PE. He was started on heparin drip and is planning to bridge to warfarin. Work up for DVT demonstrated DVT in the peroneal veins on the left side. He states he has had left leg pain which is chronic in the past. He reports sciatica like symptoms. This has not worsen. He denies any history of thrombosis. He has no family history of thrombosis. He does have cardiac history. Allergies/Medications Allergies: Coded Allergies: NO KNOWN ALLERGIES (07/24/16) Home Med List: Allopurinol 300 MG TABLET 300 MG PO D GOUT (Reported) Alprostadil (Caverject) 20 MCG KIT 20 MCG .ROUTE NEEDED PRN ERECTILE DYSFUNCTION (Reported) INTRACAVERNOSAL Amlodipine Besylate (Norvasc) 10 MG TABLET 10 MG PO HTN HTN (Reported) Reason to Stop at ADM: BP within control, will restart if it goes >120-130 Aspirin (Aspirin*) 325 MG TABLET 325 MG PO DAILY BLOOD THINNER (Reported) Reason to Stop at ADM: renal hematoma Chlorthalidone 25 MG TABLET 25 MG PO QAM CARDIAC (Reported) Docusate Sodium (Colace) 100 MG CAPSULE 1 CAP PO DAILY STOOL SOFTENER ( Reported) Ezetimibe (Zetia) 10 MG TABLET 10 MG PO D CHOLESTEROL (Reported) Ferrous Sulfate 325 MG (65 MG IRON) TABLET 325 MG PO BID ANEMIA (Reported) Fluticasone Propionate 50 MCG/ACTUATION SPRAY.SUSP 2 SPRAY NASB DAILY BREATHING (Reported) Gemfibrozil (Lopid) 600 MG TABLET 600 MG PO BID Cholesterol Guaifenesin (Mucinex) 600 MG TAB.ER.12H 1 TAB PO BID PRN Congestion Hydromorphone HCl (Dilaudid) 4 MG TABLET 1 TAB PO 4XDP PRN Severe pain 7-10 Lactose-Reduced Food (Ensure Liquid) 237 ML LIQUID 1 CAN PO DAILY PRN NUTRITIONAL SUPPLEMENT (Reported) Levothyroxine Sodium 137 MCG TABLET 137 MCG PO QAM HYPOTHYROIDISM (Reported) Magnesium Hydroxide (Milk Of Magnesia) 400 MG/5 ML ORAL.SUSP 5 ML PO BID PRN CONSTIPATION Memantine HCl (Namenda XR) 28 MG CAP.SPR.24 1 CAP PO DAILY MEMORY (Reported) Metoprolol Succinate 25 MG TAB 75 MG PO BID HYPERTENSION Nitroglycerin (Nitroglycerin Patch) 0.4 MG/HOUR PATCH.TD24 0.4 MG TOP DAILY Chest pain Omeprazole 40 MG CAPSULE.DR 40 MG PO D GERD (Reported) Polyethylene Glycol 3350 (Miralax) 17 GRAM POWD.PACK 1 PAC PO DAILY PRN CONSTIPATION dissolve in water Prednisolone Acetate (Omnipred) 1 % DROPS.SUSP 1 GTT OPH DAILY EYE(S) ( Reported) Rosuvastatin Calcium (Crestor) 20 MG TABLET 20 MG PO D CHOLESTEROL (Reported) Sildenafil Citrate (Viagra) 100 MG TABLET 1 TAB PO DAILY NEEDED ERECTILE DYSFUNCTION (Reported) 1 hour before sexual activity Tamsulosin HCl (Flomax) 0.4 MG CAP.ER.24H 0.4 MG PO QPM BPH (Reported) Current Medications: Current Medications Sig/Geri Start time Last Medication Dose Route Stop Time Status Admin Acetaminophen 650 MG Q8P PRN 08/16 1630 AC PO Allopurinol 300 MG DAILY 08/17 1000 AC 08/17 PO 1120 Amlodipine Besylate 10 MG DAILY 08/17 1000 AC 08/17 PO 1118 Atorvastatin Calcium 20 MG 1700 08/16 1700 AC 08/17 PO 1624 Chlorthalidone 25 MG QAM 08/17 1000 AC 08/17 PO 1115 Docusate Sodium 100 MG DAILY 08/16 1603 AC 08/17 PO 1114 Ezetimibe 10 MG DAILY 08/17 1000 AC 08/17 PO 1119 Ferrous Sulfate 325 MG BID 08/16 2200 AC 08/17 PO 1114 Fluticasone 2 SPRAY DAILY 08/16 1604 AC 08/16 Propionate JEF 1932 Gemfibrozil 600 MG BID 08/16 2200 AC 08/17 PO 1115 Guaifenesin 600 MG BID PRN 08/16 1615 AC PO Heparin Sodium 3,800 UNIT ONCE ONE 08/16 2245 DC 08/16 (Porcine) IV 08/16 2246 2319 Heparin Sodium 25,000 UNIT Q24H 08/16 1400 AC 08/17 (Porcine) IV 0715 Sodium Chloride 500 ML Hydromorphone HCl 0.2 MG ONCE ONE 08/17 1015 DC IV 08/17 1016 Hydromorphone HCl 1 MG ONCE ONE 08/17 0500 DC 08/17 IV 08/17 0501 0506 Hydromorphone HCl 1 MG ONCE ONE 08/16 2100 DC 08/16 IV 08/16 2101 2118 Hydromorphone HCl 4 MG Q6P PRN 08/16 1615 AC 08/17 PO 0312 Ketorolac 15 MG Q12P PRN 08/16 1630 DC Tromethamine IV Levothyroxine Sodium 0.137 MG DAILY AC 08/17 0700 AC 08/17 PO 0736 Magnesium Hydroxide 30 ML BID PRN 08/16 1615 AC PO Memantine 10 MG BID 08/17 1000 AC 08/17 PO 1117 Metoprolol Tartrate 75 MG BID 08/16 2200 AC 08/17 PO 1116 Nitroglycerin 0.4 MG DAILY 08/16 1607 AC 08/17 TOP 1119 Omeprazole 40 MG DAILY AC 08/17 0700 AC 08/17 PO 0736 Patient Medication 1 UNIT 1700 08/17 1700 AC Teaching ED 08/17 1701 Polyethylene Glycol 17 GM DAILY 08/17 1000 AC 08/17 PO 1116 Prednisolone 1 GTT DAILY 08/17 1000 AC 08/17 OPH 1118 Tamsulosin HCl 0.4 MG QPM 08/16 2200 AC 08/16 PO 2118 Warfarin Sodium 5 MG COUMADIN 1700 08/17 1700 AC 08/17 PO 08/17 2359 1624 Review of Systems Review of Systems Constitutional: Denies: chills, fever, weakness. EENTM: Denies: blurred vision. Cardiovascular: Reports: chest pain, palpitations. Denies: edema, syncope. Respiratory: Denies: hemoptysis, short of breath. GI: Reports: abdominal pain. Musculoskeletal: Denies: back pain, muscle pain. Skin: Denies: rash. Neurological/Psychological: Reports: anxiety. Hematologic/Endocrine: Denies: bruising, bleeding. All Other Systems: Reviewed and Negative Past History Travel History Traveled to [place] past 21 day No Medical History Blood Transfusion Hx: Yes Neurological: CVA EENT: NONE Cardiovascular: CAD, hypertension, hyperlipidemia, myocardial infarction, PVD, syncope, bioprosthetic aortic valve replacement with 2 bypass grafts post-op atrial fibrillation Respiratory: NONE Gastrointestinal: GERD Hepatic: hepatitis C Renal: nephrolithiasis, urinary incontinence, renal insufficiency Musculoskeletal: gout, osteoarthritis Psychiatric: NONE Endocrine: diabetes, hypothyroidism Blood Disorders: NONE Cancer(s): 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 Home Services at Home: Nursing Smoking Status: Never Smoked ETOH Use: denies use Illicit Drug Use: denies illicit drug use Functional Ability ADLs Independent: dressing, eating, toileting, bathing. Ambulation: independent IADLs Independent: shopping, housework, finances, food prep, telephone, transportation , medication admin. Exam & Diagnostic Data Vital Signs and I&O Vital Signs Date Time Temp Pulse Resp B/P Pulse O2 O2 Flow FiO2 Ox Delivery Rate 08/17 1116 68 140/60 08/17 0923 95 Nasal 1.0L Cannula 08/17 0832 97.7 64 20 150/80 95 Room Air 08/17 0800 Nasal 2.0L Cannula 08/17 0029 69 94 08/17 0007 99.0 68 18 120/60 96 CPAP 08/17 0000 CPAP 2.0L 08/16 2359 98.1 70 18 130/60 90 Room Air 08/16 2223 77 96 08/16 2117 89 130/70 08/168 89 130/70 08/16 2111 Nasal 2.0L Cannula 08/16 1800 95 Nasal 2.0L Cannula 08/16 1750 98.3 80 18 150/78 95 Nasal 2.0L Cannula 08/16 1618 97.7 82 18 124/80 96 Nasal 2.0L Cannula Intake & Output 08/17 1600 08/17 0800 08/17 0000 Intake Total 792 200 900 Output Total 450 550 Balance 792 -250 350 Intake, IV 232 200 150 Intake, Oral 560 750 Number 1 0 Bowel Movements Output, Urine 450 550 Patient 93.553 kg 95.708 kg Weight Physical Exam General Appearance: alert, awake, comfortable, on 2L NC Head: atraumatic, normal appearance Eyes: Bilateral: PERRL. Ears, Nose, Throat: normal pharynx, normal ENT inspection Respiratory: normal breath sounds, chest non-tender, no respiratory distress Cardiovascular: tachycardia, systolic murmur Gastrointestinal: normal bowel sounds, soft, tenderness Extremities: no edema, no calf tenderness Cranial Nerves: normal hearing, normal speech Skin: no rash Last 48 Hours of Lab Results: Laboratory Tests 08/17 08/17 08/17 1525 0320 0320 Chemistry Sodium (137 - 145 mmol/L) 138 Potassium (3.5 - 5.1 mmol/L) 3.9 Chloride (98 - 107 mmol/L) 103 Carbon Dioxide (22 - 30 mmol/L) 27 Anion Gap (5 - 16) 8 BUN (9 - 20 mg/dL) 14 Creatinine (0.7 - 1.2 mg/dL) 0.8 Estimated GFR (>60 ml/min) > 60 BUN/Creatinine Ratio (7 - 25 %) 17.5 Total Bilirubin (0.2 - 1.3 mg/dL) 0.9 Direct Bilirubin (< 0.4 mg/dL) 0.4 AST (17 - 59 U/L) 21 ALT (21 - 72 U/L) 33 Alkaline Phosphatase (< 127 U/L) 139 H Troponin I (<0.11 ng/ml) < 0.01 Total Protein (6.3 - 8.2 g/dL) 6.0 L Albumin (3.5 - 5.0 g/dL) 2.9 L Coagulation PT (9.4 - 12.5 SEC) 13.2 H INR (0.90 - 1.17) 1.26 H APTT (25 - 37 SEC) Pending Cancelled 70 H Hematology CBC w Diff NO MAN DIFF REQ WBC (4.8 - 10.8 /CUMM) 5.1 RBC (4.70 - 6.10 /CUMM) 3.88 L Hgb (14.0 - 18.0 G/DL) 11.1 L Hct (42 - 52 %) 33.5 L MCV (80.0 - 94.0 FL) 86.5 MCH (27.0 - 31.0 PG) 28.6 RDW (11.5 - 14.5 %) 17.2 H Plt Count (130 - 400 /CUMM) 330 MPV (7.4 - 10.4 FL) 7.0 L Gran % (42.2 - 75.2 %) 44.8 Lymphocytes % (20.5 - 51.1 %) 39.3 Monocytes % (1.7 - 9.3 %) 12.0 H Eosinophils % (0 - 5 %) 2.6 Basophils % (0.0 - 2.0 %) 1.3 Absolute Granulocytes (1.4 - 6.5 /CUMM) 2.3 Absolute Lymphocytes (1.2 - 3.4 /CUMM) 2.0 Absolute Monocytes (0.10 - 0.60 /CUMM) 0.6 Absolute Eosinophils (0.0 - 0.7 /CUMM) 0.1 Absolute Basophils (0.0 - 0.2 /CUMM) 0.1 PUBS MCHC (33.0 - 37.0 G/DL) 33.0 08/16 1451 1042 Chemistry Sodium (137 - 145 mmol/L) 139 Potassium (3.5 - 5.1 mmol/L) 4.3 Chloride (98 - 107 mmol/L) 103 Carbon Dioxide (22 - 30 mmol/L) 28 Anion Gap (5 - 16) 8 BUN (9 - 20 mg/dL) 12 Creatinine (0.7 - 1.2 mg/dL) 0.8 Estimated GFR (>60 ml/min) > 60 BUN/Creatinine Ratio (7 - 25 %) 15.0 Glucose (65 - 99 mg/dL) 93 Calcium (8.4 - 10.2 mg/dL) 9.4 Total Bilirubin (0.2 - 1.3 mg/dL) 1.2 AST (17 - 59 U/L) 23 ALT (21 - 72 U/L) 28 Alkaline Phosphatase (< 127 U/L) 182 H Troponin I (<0.11 ng/ml) < 0.01 [id number] Pept (<125 pg/mL) 210 H Total Protein (6.3 - 8.2 g/dL) 7.1 Albumin (3.5 - 5.0 g/dL) 3.6 Globulin (1.9 - 4.2 gm/dL) 3.5 Albumin/Globulin Ratio (1.1 - 2.2 %) 1.0 L TSH (0.270 - 4.200 uIU/mL) 1.420 Free T4 (0.78 - 2.44 ng/dL) 2.26 Coagulation PT (9.4 - 12.5 SEC) Cancelled 12.7 H INR (0.90 - 1.17) Cancelled 1.21 H APTT (25 - 37 SEC) 52 H Cancelled 29 D-Dimer (70 - 232 ng/ml) 2006 H Hematology CBC w Diff NO MAN DIFF REQ WBC (4.8 - 10.8 /CUMM) 6.0 RBC (4.70 - 6.10 /CUMM) 4.35 L Hgb (14.0 - 18.0 G/DL) 12.4 L Hct (42 - 52 %) 37.9 L MCV (80.0 - 94.0 FL) 87.2 MCH (27.0 - 31.0 PG) 28.6 RDW (11.5 - 14.5 %) 16.8 H Plt Count (130 - 400 /CUMM) 391 MPV (7.4 - 10.4 FL) 6.9 L Gran % (42.2 - 75.2 %) 61.4 Lymphocytes % (20.5 - 51.1 %) 24.6 Monocytes % (1.7 - 9.3 %) 11.2 H Eosinophils % (0 - 5 %) 2.1 Basophils % (0.0 - 2.0 %) 0.7 Absolute Granulocytes (1.4 - 6.5 /CUMM) 3.7 Absolute Lymphocytes (1.2 - 3.4 /CUMM) 1.5 Absolute Monocytes (0.10 - 0.60 /CUMM) 0.7 H Absolute Eosinophils (0.0 - 0.7 /CUMM) 0.1 Absolute Basophils (0.0 - 0.2 /CUMM) 0 PUBS MCHC (33.0 - 37.0 G/DL) 32.8 L Imaging/Other Studies: Chest CTA 08/16/2016: 1. No evidence of aortic dissection. 2. Multiple scattered subsegmental pulmonary emboli without evidence of right heart strain. No evidence of pulmonary infarction. Interval resolution of the trace bilateral pleural effusions with improved bibasilar consolidations. 3. Stable size of the left subcapsular perinephric hematoma with evolving blood products. There is decreased blood products tracking within the left retroperitoneum. 4. Atherosclerotic disease as detailed above. Venous doppler 08/16/2016: 1. Positive deep venous thrombosis in one of the peroneal veins in the left calf. Remainder of the deep venous system in the left lower extremity patent. 2. No evidence of deep venous thrombosis in the right lower extremity. Assessment/Plan Assessment: Mr. Soriano is a 70-year-old male with CAD s/p CABG, MV replacement with bovine valve, hypertension, DENA on nasal CPAP, and recent hospitalization for left subcapsular renal hematoma after lithotripsy who presented to the ED with chest pain. He was found to have left peroneal veins thrombosis with bilateral subsegmental pulmonary emboli. He is currently on anticoagulation with heparin drip and bridging to warfarin. He is at higher risk of bleeding given recent recent left subcapsular renal hematoma. He has no signs or symptoms of bleeding at the moment. He denies any new symptoms. He has no history of thrombosis but does have cardiac history. It is unlikely that he has an inherited hypercoagulable state. Acquired hypercoagulable state is possible but less likely. His clinical course is concerning for provoked thrombosis given recent hospitalization. He did have a period of immobility with hospitalization and lithotripsy procedure. Other hypercoagulable states are less likely. Prior to starting warfarin, it may be best to check protein C and S activity. This might be low from acute thrombosis but given the low clot burden it may not be significantly decreased. IVC filter is unlikely to be helpful at the moment unless he has contraindication to bleeding. He should be monitored closely while he is on anticoagulation. He will need at least 6 to 9 months of therapy. Recommendations: 1. Monitor closely for bleeding 2. Check protein C and S level prior to starting warfarin 3. Age appropriate malignancy screening 4. Can follow up as outpatient to discuss work up 5. IVC filter unlikely to help at the moment, can place if anticoagulation is contra-indicated Problem List: 1. Pulmonary embolism 2. DVT (deep venous thrombosis) 3. Acute blood loss as cause of postoperative anemia Other Findings/Comments: Please call [phone] with any questions or concerns. Consult Acknowledgment - Thank you for your consult request.
[2016-08-17 16:06] VITALS: BP 130/80
[2016-08-17 16:26] LABS: PTT 62 SEC (25-37)
--- NOTE | 2016-08-17 19:45 | ECHOCARDIOGRAM REPORT ---
TANYA VILLALTA Age: 70 : 1945 Gender: M Exam Date: 08/17/2016 09:45 Exam Location: [address] Ht (in): 68 Wt (lb): 208 BSA: 2.16 BP: 150 / 78 Ordering Physician: EMILY VILLANUEVA MD Referring Physician: EMILY VILLANUEVA MD Technologist: Ben Rosales [facility] Room Number: 176-1 Indications: Pulmonary HTN Rhythm: Sinus Technical Quality: fair FINDINGS Left Ventricle Normal left ventricular size with mild left ventricular hypertrophy. Normal systolic function with no obvious regional wall motion abnormalities. Normal left ventricular diastolic filling pattern for age. The ejection fraction is visually estimated at 55%. Right Ventricle The right ventricle is normal in size and function. Right Atrium The right atrium is normal in size. Left Atrium The left atrium is normal in size. The interatrial septum is intact. Mitral Valve The mitral valve is normal in structure and function. There is no mitral regurgitation. Aortic Valve Normally seated and functioning bio-prosthetic aortic valve with mild stenosis. There is no aortic regurgitation. Tricuspid Valve The tricuspid valve is normal in structure and function. There is no tricuspid regurgitation. Pulmonary artery systolic pressure is normal. Pulmonic Valve Structurally normal pulmonic valve. There is no pulmonic regurgitation. Pericardium Normal pericardium without effusion. No pleural effusion. Great Vessels Normal aortic root dimension. The aortic arch and great vessels are well seen and are normal. CONCLUSIONS 1. Normal EF of 55%. 2. Mild left ventricular enlargement. 3. Normally seated and functioning bioprosthetic aortic valve with mild stenosis. Ed Allison M.D. (Electronically Signed) Final Date: 17 August 2016 19:44 MEASUREMENTS (Male / Female) Normal Values 2D ECHO LV Diastolic Diameter PLAX 4.0 cm 4.2 - 5.9 / 3.9 - 5.3 cm LV Systolic Diameter PLAX 2.8 cm 2.1 - 4.0 cm LV Fractional Shortening PLAX 30.0 % 25 - 46 % LV Ejection Fraction 2D Teich 57.8 % IVS Diastolic Thickness 1.2 cm LVPW Diastolic Thickness 1.2 cm LV Relative Wall Thickness 0.6 LVOT Diameter 1.9 cm Aortic Root Diameter 3.3 cm LA Systolic Diameter LX 4.0 cm 3.0 - 4.0 / 2.7 - 3.8 cm LA Volume 68.0 cm 18 - 58 / 22 - 52 cm Ascending Aorta Diameter 3.0 cm DOPPLER AV Peak Velocity 256.0 cm/s AV Peak Gradient 26.2 mmHg AV Mean Velocity 175.0 cm/s AV Mean Gradient 15.0 mmHg AV Velocity Time Integral 54.0 cm LVOT Peak Velocity 115.0 cm/s LVOT Peak Gradient 5.3 mmHg LVOT Mean Velocity 74.5 cm/s LVOT Mean Gradient 3.0 mmHg LVOT Velocity Time Integral 31.4 cm LVOT Stroke Volume 89.0 cm AV Area Cont Eq vti 1.6 cm AV Area Cont Eq pk 1.3 cm MV Peak Velocity 141.0 cm/s MV Peak Gradient 8.0 mmHg MV Mean Velocity 73.2 cm/s MV Mean Gradient 3.0 mmHg Mitral E Point Velocity 105.0 cm/s Mitral A Point Velocity 109.0 cm/s Mitral E to A Ratio 1.0 MV PHT Velocity 122.0 cm/s MV Deceleration Ogle 354.0 cm/s MV Pressure Half Time 103.4 ms MV Area PHT 2.1 cm MV Deceleration Time 335.0 ms PV Peak Velocity 124.0 cm/s PV Peak Gradient 6.2 mmHg PV Mean Velocity 86.7 cm/s PV Mean Gradient 3.0 mmHg PV Velocity Time Integral 29.5 cm LV E' Lateral Velocity 14.8 cm/s Mitral E to LV E' Lateral Ratio 7.1 LV E' Septal Velocity 5.9 cm/s Mitral E to LV E' Septal Ratio 17.6
[2016-08-18 00:09] VITALS: BP 146/74
[2016-08-18 03:56] LABS: ABSOLUTE BASOPHIL COUNT 0.1 /CUMM (0.0-0.2); ABSOLUTE EOSINOPHIL COUNT 0.1 /CUMM (0.0-0.7); ABSOLUTE GRANULOCYTE CT 2.8 /CUMM (1.4-6.5); ABSOLUTE LYMPH COUNT 2.2 /CUMM (1.2-3.4); ABSOLUTE MONOCYTE COUNT 0.6 /CUMM (0.10-0.60); BASOPHIL % 1.1 % (0.0-2.0); EOSINOPHIL % 2.5 % (0-5); GRANULOCYTE % 47.9 % (42.2-75.2); HEMATOCRIT 34.2 % (42-52); MEAN CORPUSCULAR HGB 28.6 PG (27.0-31.0); MEAN CORPUSCULAR HGB CONC 33.2 G/DL (33.0-37.0); MEAN CORPUSCULAR VOLUME 86.2 FL (80.0-94.0); MEAN PLATELET VOLUME 7.7 FL (7.4-10.4); PLATELET COUNT 331 /CUMM (130-400); RBC DISTRIBUTION WIDTH 16.9 % (11.5-14.5); RED BLOOD CELL CT 3.97 /CUMM (4.70-6.10)
[2016-08-18 03:58] LABS: PT 13.2 SEC (9.4-12.5)
[2016-08-18 04:01] LABS: PTT 63 SEC (25-37)
[2016-08-18 04:44] LABS: WHITE BLOOD CELL COUNT 5.8 /CUMM (4.8-10.8)
[2016-08-18 07:48] VITALS: BP 130/68
--- NOTE | 2016-08-18 07:49 | PN- Housestaff ---
See Addendum Subjective Follow-up For: Bilateral PE Left subcapsular perinephric hematoma Tele-Events Since Last Visit: SB-NSR, HR 56-63 bpm, no overnight events. Subjective: Patient seen and examined at bedside this AM. He reports his pain is slightly improved and there is no longer a pearcing, stabbing type quality to his pain. He denies shortness of breath or left chest discomfort. He denies any hematuria or difficulty passing urine and his abdominal pain is just an achy discomfort. Review of Systems Constitutional: Denies: chills, diaphoresis, fever. EENTM: Denies: visual changes, hearing changes, nasal congestion. Cardiovascular: Reports: chest pain (Right sided, improved). Denies: edema, palpitations, peripheral edema. Respiratory: Denies: cough, short of breath, sputum production. Gastrointestinal: Reports: abdominal pain (Mild, aching). Denies: melena, nausea, vomiting. Genitourinary: Denies: dysuria, hematuria. Musculoskeletal: Denies: joint pain, muscle pain. Skin: Denies: rash. Neurological/Psychological: Denies: confusion, headache, numbness. Hematologic/Endocrine: Denies: bruising, polyuria. Objective Last 24 Hrs of Vital Signs/I&O Vital Signs Date Time Temp Pulse Resp B/P Pulse O2 O2 Flow FiO2 Ox Delivery Rate 08/18 0748 98.7 57 16 130/68 92 Room Air 08/18 0059 67 93 08/18 0009 98.6 60 16 146/74 97 CPAP 08/18 0000 CPAP 08/17 2125 77 96 08/18 2031 77 160/86 08/18 2031 77 160/86 08/17 1640 96 Nasal 1.0L Cannula 08/17 1606 99.3 63 16 130/80 93 Nasal 1.0L Cannula 08/17 1600 Nasal 2.0L Cannula 08/17 1116 68 140/60 08/17 0923 95 Nasal 1.0L Cannula Intake & Output 08/18 1600 08/18 0800 08/18 0000 Intake Total 238.4 958.4 Output Total 500 600 Balance -261.6 358.4 Intake, IV 238.4 238.4 Intake, Oral 0 720 Number 0 Bowel Movements Output, Urine 500 600 Patient 207 lb Weight Physical Exam General Appearance: Alert, Oriented X3, Cooperative, No Acute Distress Skin: No Rashes HEENT: Atraumatic, PERRLA, EOMI, Mucous Membr. moist/pink Neck: Supple, +2 Carotid Pulse wo Bruit Lymphatic: Cervical nl Cardiovascular: Normal S1, Normal S2, +Systolic murmur Lungs: Clear to Auscultation, Normal Air Movement Abdomen: Normal Bowel Sounds, Soft, Mild tenderness to diffuse palpation Neurological: Normal Speech, Normal Tone Extremities: No Clubbing, No Cyanosis, No Edema, No Tenderness/Swelling, No calf tenderness. Vascular: Pulses Symmetrical Current Medications: Current Medications Sig/Geri Start time Last Medication Dose Route Stop Time Status Admin Acetaminophen 650 MG Q8P PRN 08/16 1630 AC PO Allopurinol 300 MG DAILY 08/17 1000 AC 08/17 PO 1120 Amlodipine Besylate 10 MG DAILY 08/17 1000 AC 08/17 PO 1118 Atorvastatin Calcium 20 MG 1700 08/16 1700 AC 08/17 PO 1624 Benzonatate 100 MG TID 08/18 1000 AC PO Chlorthalidone 25 MG QAM 08/17 1000 AC 08/17 PO 1115 Docusate Sodium 100 MG DAILY 08/16 1603 AC 08/17 PO 1114 Ezetimibe 10 MG DAILY 08/17 1000 AC 08/17 PO 1119 Ferrous Sulfate 325 MG BID 08/16 2200 AC 08/17 PO 2031 Fluticasone 2 SPRAY DAILY 08/16 1604 AC 08/16 Propionate JEF 1932 Gemfibrozil 600 MG BID 08/16 2200 AC 08/17 PO 2032 Guaifenesin 600 MG Q12 08/18 1000 AC PO Guaifenesin 600 MG BID PRN 08/16 1615 AC PO Heparin Sodium 25,000 UNIT Q24H 08/16 1400 AC 08/18 (Porcine) IV 0130 Sodium Chloride 500 ML Hydromorphone HCl 0.2 MG ONCE ONE 08/17 1015 DC IV 08/17 1016 Hydromorphone HCl 4 MG Q6P PRN 08/16 1615 AC 08/18 PO 0617 Levothyroxine Sodium 0.137 MG DAILY AC 08/17 0700 AC 08/18 PO 0617 Magnesium Hydroxide 30 ML BID PRN 08/16 1615 AC PO Memantine 10 MG BID 08/17 1000 AC 08/17 PO 2032 Metoprolol Tartrate 75 MG BID 08/16 2200 AC 08/17 PO 2032 Nitroglycerin 0.4 MG DAILY 08/16 1607 AC 08/17 TOP 1119 Omeprazole 40 MG DAILY AC 08/17 0700 AC 08/18 PO 0617 Patient Medication 1 UNIT ONE NR 08/18 0900 [facility] ED 08/18 0930 Patient Medication 1 UNIT 1700 08/17 1700 [facility] ED 08/17 1701 Polyethylene Glycol 17 GM DAILY 08/17 1000 AC 08/17 PO 1116 Prednisolone 1 GTT DAILY 08/17 1000 AC 08/17 OPH 1118 Tamsulosin HCl 0.4 MG QPM 08/16 2200 AC 08/17 PO 203 Warfarin Sodium 5 MG COUMADIN 1700 08/18 1700 AC PO Warfarin Sodium 5 MG COUMADIN 1700 08/17 1700 NM 08/17 PO 08/17 2359 1624 Last 24 Hrs of Lab/Gregory Results Last 24 Hrs of Labs/Mics: Laboratory Tests 08/18/16 0845: Protein C Activity Pending, Protein S Pending 08/18/16 0325: PT 13.2 H, INR 1.26 H 08/18/16 0325: APTT 63 H, CBC w Diff NO MAN DIFF REQ, RBC 3.97 L, MCV 86.2, MCH 28.6, RDW 16.9 H, MPV 7.7, Gran % 47.9, Lymphocytes % 37.6, Monocytes % 10.9 H, Eosinophils % 2.5, Basophils % 1.1, Absolute Granulocytes 2.8, Absolute Lymphocytes 2.2, Absolute Monocytes 0.6, Absolute Eosinophils 0.1, Absolute Basophils 0.1, PUBS MCHC 33.2 08/17/16 1525: APTT 62 H Orders ECHO Findings: CONCLUSIONS 1. Normal EF of 55%. 2. Mild left ventricular enlargement. 3. Normally seated and functioning bioprosthetic aortic valve with mild stenosis. Assessment/Plan Assessment: 70-year-old gentleman with a past medical history of hypertension, HCV, GERD, hyperlipidemia, dyspepsia, mitral valve replacement in May 2014 (bovine) and a history of multiple nephrolithiasis, recent admission July 24 for left renal subcapsular hematoma with extension to the retroperitoneum status post lithotripsy ESWL procedure, came to ED for evaluation of right sided severe chest pain, CTA chest showed bilateral PE, Dopplers of lower extremities showed deep venous thrombosis of the peroneal veins. Problem list Bilateral Pulmonary embolism DVT Mitral valve replacement Hypertension Left renal subcapsular hematoma Plan: -Echo results show normal EF to 55%, mild LV enlargement, normal seated/ functioning bioprosthetic AC -On IV heparin (started after clearance from nephrology), watch for hematuria and inform nephrology immediately if this occurs (so far no hematuria and H&H stable) -Cardio consult appreciated, suggested considering IVC filter if any enlargement of hematoma or contraindication to anticoagulation -Heme/onc consult appreciated, suggested we check protein C & S level prior to starting warfarin but patient received warfarin yesterday prior to testing and thus this was unable to be performed -Pulmonary on board, appreciate recommendations -Continue levothyroxine, chlorthalidone, tamsulosin, statin, metoprolol, amlodipine, allopurinol FULL CODE DVTP: Heprin drip Regular Diet Mild to severe pain pathway Problem List: 1. Traumatic perinephric hematoma of left kidney 2. Pulmonary embolism 3. Chest pain 4. DVT (deep venous thrombosis) Pain Ratin Pain Location: Right chest Pain Goal: Pain 4 or less Pain Plan: Tylenol for mild pain, Dilaudid for severe pain. Tomorrow's Labs & Rationales: CBC (monitor H&H in setting of hematoma), INR to dose coumadin.
--- NOTE | 2016-08-18 11:06 | PN- Pulmonary ---
Subjective HPI/Critical Care Issues: The patient is awake and alert. He reports that his chest pleuritic pain has significantly improved. He is tolerating heparin without any evidence of bleeding. He denies shortness of breath. He wants to walk more. He offers no new complaints today. Objective Current Medications: Current Medications Sig/Geri Start time Last Medication Dose Route Stop Time Status Admin Acetaminophen 650 MG Q8P PRN 08/16 1630 AC PO Allopurinol 300 MG DAILY 08/17 1000 AC 08/18 PO 1023 Amlodipine Besylate 10 MG DAILY 08/17 1000 AC 08/18 PO 1023 Atorvastatin Calcium 20 MG 1700 08/16 1700 AC 08/17 PO 1624 Benzonatate 100 MG TID 08/18 1000 AC 08/18 PO 1023 Chlorthalidone 25 MG QAM 08/17 1000 AC 08/18 PO 1023 Docusate Sodium 100 MG DAILY 08/16 1603 AC 08/18 PO 1021 Ezetimibe 10 MG DAILY 08/17 1000 AC 08/18 PO 1023 Ferrous Sulfate 325 MG BID 08/16 2200 AC 08/18 PO 1021 Fluticasone 2 SPRAY DAILY 08/16 1604 AC 08/16 Propionate JEF 1932 Gemfibrozil 600 MG BID 08/16 2200 AC 08/18 PO 1021 Guaifenesin 600 MG Q12 08/18 1000 AC 08/18 PO 1023 Guaifenesin 600 MG BID PRN 08/16 1615 AC PO Heparin Sodium 25,000 UNIT Q24H 08/16 1400 AC 08/18 (Porcine) IV 0130 Sodium Chloride 500 ML Hydromorphone HCl 4 MG Q6P PRN 08/16 1615 AC 08/18 PO 1033 Levothyroxine Sodium 0.137 MG DAILY AC 08/17 0700 AC 08/18 PO 0617 Magnesium Hydroxide 30 ML BID PRN 08/16 1615 AC PO Memantine 10 MG BID 08/17 1000 AC 08/18 PO 1023 Metoprolol Tartrate 75 MG BID 08/16 2200 AC 08/18 PO 1022 Nitroglycerin 0.4 MG DAILY 08/16 1607 AC 08/18 TOP 1020 Omeprazole 40 MG DAILY AC 08/17 0700 AC 08/18 PO 0617 Patient Medication 1 UNIT ONE NR 08/18 0900 TX Teaching ED 08/18 0930 Patient Medication 1 UNIT 1700 08/17 1700 TX Teaching ED 08/17 1701 Polyethylene Glycol 17 GM DAILY 08/17 1000 AC 08/18 PO 1021 Prednisolone 1 GTT DAILY 08/17 1000 AC 08/18 OPH 1024 Tamsulosin HCl 0.4 MG QPM 08/16 2199 AC 08/17 PO 203 Warfarin Sodium 5 MG COUMADIN 08/18 1700 AC PO Warfarin Sodium 5 MG COUMADIN 1700 ONE 08/18 1700 CAN PO 08/18 170 Warfarin Sodium 5 MG COUMADIN 08/17 1700 DC 08/17 PO 08/17 2359 1624 Vital Signs & I&O Last 24 Hrs of Vitals and I&O: Vital Signs Date Time Temp Pulse Resp B/P Pulse O2 O2 Flow FiO2 Ox Delivery Rate 08/18 1023 57 130/68 08/18 1022 57 130/65 08/18 0748 98.7 57 16 130/68 92 Room Air 08/18 0059 67 93 08/18 0009 98.6 60 16 146/74 97 CPAP 08/18 0000 CPAP 08/17 2126 77 96 08/18 2031 77 160/86 08/18 2031 77 160/86 08/17 1640 96 Nasal 1.0L Cannula 08/17 1606 99.3 63 16 130/80 93 Nasal 1.0L Cannula 08/17 1600 Nasal 2.0L Cannula 08/17 1116 68 140/60 Intake & Output 08/18 1600 08/18 0800 08/18 0000 Intake Total 238.4 958.4 Output Total 500 600 Balance -261.6 358.4 Intake, IV 238.4 238.4 Intake, Oral 0 720 Number 0 Bowel Movements Output, Urine 500 600 Patient 207 lb Weight Physical Exam General Appearance: alert, awake, comfortable Head: atraumatic, normal appearance Neck: supple Respiratory: quiet respiration Cardiovascular: S1 and S2 heard, distant Gastrointestinal: normal bowel sounds, soft, non-tender Extremities: minimal edema Skin: intact, normal color, warm/dry Results Last 24 Hrs of Lab Results: Laboratory Tests 08/18/1645: Protein C Activity Pending, Protein S Pending 08/18/16324: PT 13.2 H, INR 1.26 H 08/18/16324: APTT 63 H, CBC w Diff NO MAN DIFF REQ, RBC 3.97 L, MCV 86.2, MCH 28.6, RDW 16.9 H, MPV 7.7, Gran % 47.9, Lymphocytes % 37.6, Monocytes % 10.9 H, Eosinophils % 2.5, Basophils % 1.1, Absolute Granulocytes 2.8, Absolute Lymphocytes 2.2, Absolute Monocytes 0.6, Absolute Eosinophils 0.1, Absolute Basophils 0.1, PUBS MCHC 33.2 08/17/16 1525: APTT 62 H Impression/Plan Impression/Plan Impression/Plan: 1. Bilateral subsegmental PEs without evidence of heart strain or hemodynamic instability. LE dopplers positive for DVT. 2. Recent left subcapsular hematoma following lithotripsy, improved on repeat imaging. 3. DENA on nasal CPAP. 4. S/P MVR. 5. CAD, s/p CABG. Recommendations: * Continue IV Heparin. * Monitor for bleeding. * Follow up hematology recommendations. * Nocturnal CPAP to continue. * Neb treatments as needed. * Supplemental oxygen to maintain sats greater than 92%. * Continue home medications. * Continue with pain pathway, ensure pain is well controlled. * Continue all supportive care.
[2016-08-18 15:21] VITALS: BP 130/64
[2016-08-18 17:10] LABS: PTT 68 SEC (25-37)
[2016-08-19 05:27] LABS: ABSOLUTE BASOPHIL COUNT 0 /CUMM (0.0-0.2); ABSOLUTE EOSINOPHIL COUNT 0.1 /CUMM (0.0-0.7); ABSOLUTE LYMPH COUNT 1.7 /CUMM (1.2-3.4); ABSOLUTE MONOCYTE COUNT 0.6 /CUMM (0.10-0.60); BASOPHIL % 0.7 % (0.0-2.0); EOSINOPHIL % 2.6 % (0-5); GRANULOCYTE % 54.2 % (42.2-75.2); HEMATOCRIT 35.2 % (42-52); MEAN CORPUSCULAR HGB 28.5 PG (27.0-31.0); MEAN CORPUSCULAR VOLUME 86.4 FL (80.0-94.0); MEAN PLATELET VOLUME 7.5 FL (7.4-10.4); PLATELET COUNT 302 /CUMM (130-400); RBC DISTRIBUTION WIDTH 17.2 % (11.5-14.5); RED BLOOD CELL CT 4.07 /CUMM (4.70-6.10); WHITE BLOOD CELL COUNT 5.6 /CUMM (4.8-10.8)
[2016-08-19 05:32] LABS: PT 14.3 SEC (9.4-12.5)
[2016-08-19 05:34] LABS: PTT 65 SEC (25-37)
[2016-08-19 08:15] VITALS: BP 150/80
--- NOTE | 2016-08-19 08:33 | PN- Housestaff ---
SAMUEL VILLA 08/19/16 0833: Subjective Follow-up For: Bilateral PE Left subcapsular perinephric hematoma Tele-Events Since Last Visit: Normal sinus, heart rate 63-82 no overnight events Subjective: Seen and examined patient. Offers no complaints stated that his chest pain has completely subsided. Review of Systems Constitutional: Denies: chills, diaphoresis, fever, malaise, weakness, unexplained weight loss. Cardiovascular: Denies: chest pain, edema, orthopena, palpitations, peripheral edema, syncope. Respiratory: Denies: cough, hemoptysis, orthopnea, short of breath, sputum production, stridor, wheezing. Gastrointestinal: Denies: no symptoms, see HPI, abdominal pain, bloating, constipation, diarrhea, distention, bowel incontinence, melena, nausea, bloody stool, changes in stool, vomiting, steatorrhea. Objective Last 24 Hrs of Vital Signs/I&O Vital Signs Date Time Temp Pulse Resp B/P Pulse O2 O2 Flow FiO2 Ox Delivery Rate 08/19 1012 72 150/80 08/19 1011 72 150/80 08/19 0815 98.1 72 16 150/80 92 Room Air 08/19 0117 72 92 08/19 0000 CPAP 08/18 2206 72 120/62 08/18 2206 72 120/62 08/18 1835 92 Room Air 08/18 1600 92 Room Air 08/18 1521 98.0 75 18 130/64 94 Room Air Intake & Output 08/19 1600 08/19 0800 08/19 0000 Intake Total 478.4 758 Output Total 300 425 Balance 178.4 333 Intake, IV 238.4 238 Intake, Oral 240 520 Output, Urine 300 425 Patient 205 lb Weight Physical Exam General Appearance: Alert, Oriented X3, Cooperative, No Acute Distress Cardiovascular: Regular Rate, Normal S1, Normal S2 Lungs: Clear to Auscultation, Normal Air Movement Abdomen: Normal Bowel Sounds, Soft Extremities: No Edema Current Medications: Current Medications Sig/Geri Start time Last Medication Dose Route Stop Time Status Admin Acetaminophen 650 MG Q8P PRN 08/16 1630 AC PO Allopurinol 300 MG DAILY 08/17 1000 AC 08/19 PO 1012 Amlodipine Besylate 10 MG DAILY 08/17 1000 AC 08/19 PO 1012 Atorvastatin Calcium 20 MG 1700 08/16 1700 AC 08/18 PO 1610 Benzonatate 100 MG TID 08/18 1000 AC 08/19 PO 1012 Chlorthalidone 25 MG QAM 08/17 1000 AC 08/19 PO 1011 Docusate Sodium 100 MG DAILY 08/16 1603 AC 08/19 PO 1011 Ezetimibe 10 MG DAILY 08/17 1000 AC 08/19 PO 1012 Ferrous Sulfate 325 MG BID 08/16 2200 AC 08/19 PO 1011 Fluticasone 2 SPRAY DAILY 08/16 1604 AC 08/16 Propionate JEF 1932 Gemfibrozil 600 MG BID 08/16 2200 AC 08/19 PO 1018 Guaifenesin 600 MG Q12 08/18 1000 AC 08/19 PO 1011 Guaifenesin 600 MG BID PRN 08/16 1615 AC PO Heparin Sodium 25,000 UNIT Q24H 08/16 1400 AC 08/18 (Porcine) IV 0130 Sodium Chloride 500 ML Hydromorphone HCl 4 MG Q6P PRN 08/16 1615 AC 08/19 PO 0058 Levothyroxine Sodium 0.137 MG DAILY AC 08/17 0700 AC 08/19 PO 0648 Magnesium Hydroxide 30 ML BID PRN 08/16 1615 AC PO Memantine 10 MG BID 08/17 1000 AC 08/19 PO 1012 Metoprolol Tartrate 75 MG BID 08/16 2200 AC 08/19 PO 1011 Nitroglycerin 0.4 MG DAILY 08/16 1607 AC 08/19 TOP 1010 Omeprazole 40 MG DAILY AC 08/17 0700 AC 08/19 PO 0648 Polyethylene Glycol 17 GM DAILY 08/17 1000 AC 08/19 PO 1014 Prednisolone 1 GTT DAILY 08/17 1000 AC 08/19 OPH 1011 Tamsulosin HCl 0.4 MG QPM 08/16 2200 AC 08/18 PO 2206 Warfarin Sodium 5 MG COUMADIN 1700 08/19 1700 AC PO 08/19 1701 Warfarin Sodium 5 MG COUMADIN 1700 08/18 1700 DC 08/18 PO 08/18 1701 1610 Last 24 Hrs of Lab/Gregory Results Last 24 Hrs of Labs/Mics: Laboratory Tests 08/19/16424: PT 14.3 H, INR 1.37 H 08/19/16424: APTT 65 H, CBC w Diff NO MAN DIFF REQ, RBC 4.07 L, MCV 86.4, MCH 28.5, RDW 17.2 H, MPV 7.5, Gran % 54.2, Lymphocytes % 31.3, Monocytes % 11.2 H, Eosinophils % 2.6, Basophils % 0.7, Absolute Granulocytes 3.0, Absolute Lymphocytes 1.7, Absolute Monocytes 0.6, Absolute Eosinophils 0.1, Absolute Basophils 0, PUBS MCHC 33.0 08/18/16 1545: APTT 68 H Assessment/Plan Assessment: 70-year-old gentleman with a past medical history of hypertension, HCV, GERD, hyperlipidemia, dyspepsia, mitral valve replacement in May 2014 (bovine) and a history of multiple nephrolithiasis, recent admission July 24 for left renal subcapsular hematoma with extension to the retroperitoneum status post lithotripsy ESWL procedure, came to ED for evaluation of right sided severe chest pain, CTA chest showed bilateral PE, Dopplers of lower extremities showed deep venous thrombosis of the peroneal veins. Problem list Bilateral Pulmonary embolism DVT Mitral valve replacement Hypertension Left renal subcapsular hematoma Plan: -Echo results show normal EF to 55%, mild LV enlargement, normal seated/ functioning bioprosthetic AC -On IV heparin (started after clearance from nephrology), watch for hematuria and inform nephrology immediately if this occurs (so far no hematuria and H&H stable) -Cardio consult appreciated, suggested considering IVC filter if any enlargement of hematoma or contraindication to anticoagulation -Heme/onc consult appreciated, suggested we check protein C & S level prior to starting warfarin but patient already received warfarin yesterday prior to testing -INR 1.37, was dosed 5 mg of Coumadin today recheck INR tomorrow -Pulmonary on board, appreciate recommendations -Continue levothyroxine, chlorthalidone, tamsulosin, statin, metoprolol, amlodipine, allopurinol FULL CODE DVTP: Heparin/coumadin bridging Regular Diet Mild to severe pain pathway Problem List: 1. DVT (deep venous thrombosis) 2. Pulmonary embolism Pain Ratin Pain Location: na Pain Goal: Pain 4 or less Pain Plan: current regimen Tomorrow's Labs & Rationales: cbc/bep/mag/inr SAMARA KNOWLES MD 08/19/16 1536: Attending Review Statement Attending Statement Attending Statement: examined this patient, discuss w/resident/PA/[employer], agreed w/resident/PA/[employer], reviewed EMR data (avail) Attending Assessment/Plan: oing well, no complaints. Will continue heparin and Coumadin, monitor INR and CBC.
--- NOTE | 2016-08-19 11:17 | PN- Pulmonary ---
Subjective HPI/Critical Care Issues: The patient is awake and alert. He reports feeling better overall. He denies any chest pain. His pleuritic pain has resolved. He has no shortness of breath. There were no overnight events reported. Objective Current Medications: Current Medications Sig/Geri Start time Last Medication Dose Route Stop Time Status Admin Acetaminophen 650 MG Q8P PRN 08/16 1630 AC PO Allopurinol 300 MG DAILY 08/17 1000 AC 08/19 PO 1012 Amlodipine Besylate 10 MG DAILY 08/17 1000 AC 08/19 PO 1012 Atorvastatin Calcium 20 MG 1700 08/16 1700 AC 08/18 PO 1610 Benzonatate 100 MG TID 08/18 1000 AC 08/19 PO 1012 Chlorthalidone 25 MG QAM 08/17 1000 AC 08/19 PO 1011 Docusate Sodium 100 MG DAILY 08/16 1603 AC 08/19 PO 1011 Ezetimibe 10 MG DAILY 08/17 1000 AC 08/19 PO 1012 Ferrous Sulfate 325 MG BID 08/16 2200 AC 08/19 PO 1011 Fluticasone 2 SPRAY DAILY 08/16 1604 AC 08/16 Propionate JEF 1932 Gemfibrozil 600 MG BID 08/16 2200 AC 08/19 PO 1018 Guaifenesin 600 MG Q12 08/18 1000 AC 08/19 PO 1011 Guaifenesin 600 MG BID PRN 08/16 1615 AC PO Heparin Sodium 25,000 UNIT Q24H 08/16 1400 AC 08/18 (Porcine) IV 0130 Sodium Chloride 500 ML Hydromorphone HCl 4 MG Q6P PRN 08/16 1615 AC 08/19 PO 0058 Levothyroxine Sodium 0.137 MG DAILY AC 08/17 0700 AC 08/19 PO 0648 Magnesium Hydroxide 30 ML BID PRN 08/16 1615 AC PO Memantine 10 MG BID 08/17 1000 AC 08/19 PO 1012 Metoprolol Tartrate 75 MG BID 08/16 2200 AC 08/19 PO 1011 Nitroglycerin 0.4 MG DAILY 08/16 1607 AC 08/19 TOP 1010 Omeprazole 40 MG DAILY AC 08/17 0700 AC 08/19 PO 0648 Polyethylene Glycol 17 GM DAILY 08/17 1000 AC 08/19 PO 1014 Prednisolone 1 GTT DAILY 08/17 1000 AC 08/19 OPH 1011 Tamsulosin HCl 0.4 MG QPM 08/16 2200 AC 08/18 PO 2206 Warfarin Sodium 5 MG COUMADIN 1700 08/19 1700 AC PO 08/19 1701 Warfarin Sodium 5 MG COUMADIN 1700 08/18 1700 DC 08/18 PO 08/18 1701 1610 Vital Signs & I&O Last 24 Hrs of Vitals and I&O: Vital Signs Date Time Temp Pulse Resp B/P Pulse O2 O2 Flow FiO2 Ox Delivery Rate 08/19 1012 72 150/80 08/19 1011 72 150/80 08/19 0815 98.1 72 16 150/80 92 Room Air 08/19 0117 72 92 08/19 0000 CPAP 08/18 2206 72 120/62 08/18 2206 72 120/62 08/18 1835 92 Room Air 08/18 1600 92 Room Air 08/18 1521 98.0 75 18 130/64 94 Room Air Intake & Output 08/19 1600 08/19 0800 08/19 0000 Intake Total 478.4 758 Output Total 300 425 Balance 178.4 333 Intake, IV 238.4 238 Intake, Oral 240 520 Output, Urine 300 425 Patient 205 lb Weight Physical Exam General Appearance: alert, awake, comfortable Head: atraumatic, normal appearance Neck: supple Respiratory: quiet respiration Cardiovascular: S1 and S2 heard, distant Gastrointestinal: normal bowel sounds, soft, non-tender Extremities: minimal edema Skin: intact, normal color, warm/dry Results Last 24 Hrs of Lab Results: Laboratory Tests 08/19/165: PT 14.3 H, INR 1.37 H 08/19/16 0425: APTT 65 H, CBC w Diff NO MAN DIFF REQ, RBC 4.07 L, MCV 86.4, MCH 28.5, RDW 17.2 H, MPV 7.5, Gran % 54.2, Lymphocytes % 31.3, Monocytes % 11.2 H, Eosinophils % 2.6, Basophils % 0.7, Absolute Granulocytes 3.0, Absolute Lymphocytes 1.7, Absolute Monocytes 0.6, Absolute Eosinophils 0.1, Absolute Basophils 0, PUBS MCHC 33.0 08/18/16 1545: APTT 68 H Impression/Plan Impression/Plan Impression/Plan: 1. Bilateral subsegmental PEs without evidence of heart strain or hemodynamic instability. LE dopplers positive for DVT. 2. Recent left subcapsular hematoma following lithotripsy, improved on repeat imaging. 3. DENA on nasal CPAP. 4. S/P MVR. 5. CAD, s/p CABG. Recommendations: * Continue IV Heparin. * Monitor for bleeding. * Follow up hematology recommendations. * Nocturnal CPAP to continue. * Neb treatments as needed. * Supplemental oxygen to maintain sats greater than 92%. * Continue home medications. * Continue with pain pathway, ensure pain is well controlled. * Continue all supportive care.
[2016-08-19 15:45] VITALS: BP 132/68
[2016-08-19 17:07] LABS: PTT 62 SEC (25-37)
[2016-08-20 00:20] VITALS: BP 134/78
[2016-08-20 04:32] LABS: PT 18.6 SEC (9.4-12.5)
[2016-08-20 04:34] LABS: ABSOLUTE BASOPHIL COUNT 0.1 /CUMM (0.0-0.2); ABSOLUTE EOSINOPHIL COUNT 0.2 /CUMM (0.0-0.7); ABSOLUTE GRANULOCYTE CT 2.7 /CUMM (1.4-6.5); ABSOLUTE LYMPH COUNT 2.1 /CUMM (1.2-3.4); ABSOLUTE MONOCYTE COUNT 0.6 /CUMM (0.10-0.60); EOSINOPHIL % 3.1 % (0-5); GRANULOCYTE % 47.8 % (42.2-75.2); HEMATOCRIT 37.2 % (42-52); MEAN CORPUSCULAR HGB 28.5 PG (27.0-31.0); MEAN CORPUSCULAR VOLUME 86.3 FL (80.0-94.0); MEAN PLATELET VOLUME 7.3 FL (7.4-10.4); PLATELET COUNT 302 /CUMM (130-400); RBC DISTRIBUTION WIDTH 16.6 % (11.5-14.5); RED BLOOD CELL CT 4.31 /CUMM (4.70-6.10); WHITE BLOOD CELL COUNT 5.6 /CUMM (4.8-10.8)
[2016-08-20 04:35] LABS: PTT 67 SEC (25-37)
[2016-08-20 07:30] VITALS: BP 130/72
--- NOTE | 2016-08-20 08:28 | PN- Housestaff ---
SAMUEL VILLA 08/20/16 0828: Subjective Follow-up For: Bilateral PE Left subcapsular perinephric hematoma Tele-Events Since Last Visit: Sinus rhythm, heart rate 67-71 Subjective: Seen and examined patient, offers no complaints. States that he feels well. Review of Systems Constitutional: Denies: chills, diaphoresis, fever, malaise, weakness, unexplained weight loss. Cardiovascular: Denies: chest pain, edema, orthopena, palpitations, peripheral edema, syncope. Respiratory: Denies: cough, hemoptysis, orthopnea, short of breath, sputum production, stridor, wheezing. Objective Last 24 Hrs of Vital Signs/I&O Vital Signs Date Time Temp Pulse Resp B/P Pulse O2 O2 Flow FiO2 Ox Delivery Rate 08/20 914 92 130/72 08/20 0914 92 130/72 08/20 0730 97.2 92 20 130/72 95 Nasal 3.0L Cannula 08/20 0020 99.5 68 12 134/78 95 Nasal 3.0L Cannula 08/20 0000 Nasal 2.0L Cannula 08/19 2209 80 156/78 08/19 2209 80 156/78 08/19 1910 94 Room Air Intake & Output 08/20 1600 08/20 0800 08/20 0000 Intake Total 738.4 100 620 Output Total 016 542 0455 Balance 238.4 -100 -680 Intake, IV 238.4 20 Intake, Oral 500 100 600 Number 1 Bowel Movements Output, Urine [phone] Patient 203 lb 203 lb Weight Physical Exam General Appearance: Alert, Oriented X3, Cooperative, No Acute Distress Cardiovascular: Regular Rate, Normal S1, Normal S2 Lungs: Clear to Auscultation, Normal Air Movement Abdomen: Normal Bowel Sounds, Soft, No Tenderness Extremities: No Edema Current Medications: Current Medications Sig/Geri Start time Last Medication Dose Route Stop Time Status Admin Acetaminophen 650 MG Q8P PRN 08/16 1630 AC PO Allopurinol 300 MG DAILY 08/17 1000 AC 08/20 PO 0915 Amlodipine Besylate 10 MG DAILY 08/17 1000 AC 08/20 PO 0915 Atorvastatin Calcium 20 MG 1700 08/16 1700 AC 08/20 PO 1720 Benzonatate 100 MG TID 08/18 1000 AC 08/20 PO 1720 Chlorthalidone 25 MG QAM 08/17 1000 AC 08/20 PO 0915 Docusate Sodium 100 MG DAILY 08/16 1603 AC 08/20 PO 0914 Ezetimibe 10 MG DAILY 08/17 1000 AC 08/20 PO 0914 Ferrous Sulfate 325 MG BID 08/16 2200 AC 08/20 PO 0914 Fluticasone 2 SPRAY DAILY 08/16 1604 AC 08/16 Propionate JEF 1932 Gemfibrozil 600 MG BID 08/16 2200 AC 08/20 PO 0914 Guaifenesin 600 MG Q12 08/18 1000 AC 08/20 PO 0914 Guaifenesin 600 MG BID PRN 08/16 1615 AC PO Heparin Sodium 25,000 UNIT Q24H 08/16 1400 AC 08/20 (Porcine) IV 1047 Sodium Chloride 500 ML Hydromorphone HCl 4 MG Q6P PRN 08/16 1615 AC 08/20 PO 0103 Levothyroxine Sodium 0.137 MG DAILY AC 08/17 0700 AC 08/20 PO 0604 Magnesium Hydroxide 30 ML BID PRN 08/16 1615 AC PO Memantine 10 MG BID 08/17 1000 AC 08/20 PO 0915 Metoprolol Tartrate 75 MG BID 08/16 2200 AC 08/20 PO 0914 Nitroglycerin 0.4 MG DAILY 08/16 1607 AC 08/20 TOP 0913 Omeprazole 40 MG DAILY AC 08/17 0700 AC 08/20 PO 0604 Polyethylene Glycol 17 GM DAILY 08/17 1000 AC 08/20 PO 0914 Potassium Chloride 40 MEQ ONCE ONE 08/20 1830 UNVr PO 08/20 1831 Prednisolone 1 GTT DAILY 08/17 1000 AC 08/20 OPH 0914 Tamsulosin HCl 0.4 MG QPM 08/16 2200 AC 08/19 PO 2209 Warfarin Sodium 5 MG COUMADIN 1700 08/20 1700 DC 08/20 PO 08/20 1701 1720 Last 24 Hrs of Lab/Gregory Results Last 24 Hrs of Labs/Mics: Laboratory Tests 08/20/16 1640: APTT 64 H 08/20/16 0400: PT 18.6 H, INR 1.78 H 08/20/16 0400: Anion Gap 9, Estimated GFR > 60, BUN/Creatinine Ratio 13.8, Magnesium 1.7, APTT 67 H, CBC w Diff NO MAN DIFF REQ, RBC 4.31 L, MCV 86.3, MCH 28.5, RDW 16.6 H, MPV 7.3 L, Gran % 47.8, Lymphocytes % 36.7, Monocytes % 11.4 H, Eosinophils % 3.1, Basophils % 1.0, Absolute Granulocytes 2.7, Absolute Lymphocytes 2.1, Absolute Monocytes 0.6, Absolute Eosinophils 0.2, Absolute Basophils 0.1, PUBS MCHC 33.0 Assessment/Plan Assessment: 70-year-old gentleman with a past medical history of hypertension, HCV, GERD, hyperlipidemia, dyspepsia, mitral valve replacement in May 2014 (bovine) and a history of multiple nephrolithiasis, recent admission July 24 for left renal subcapsular hematoma with extension to the retroperitoneum status post lithotripsy ESWL procedure, came to ED for evaluation of right sided severe chest pain, CTA chest showed bilateral PE, Dopplers of lower extremities showed deep venous thrombosis of the peroneal veins. Problem list Bilateral Pulmonary embolism DVT Mitral valve replacement Hypertension Left renal subcapsular hematoma Plan: -Echo results show normal EF to 55%, mild LV enlargement, normal seated/ functioning bioprosthetic AC -On IV heparin -Cardio consult appreciated, suggested considering IVC filter if any enlargement of hematoma or contraindication to anticoagulation -Heme/onc consult appreciated, -INR 1.78, was dosed 5 mg of Coumadin today recheck INR tomorrow -Pulmonary on board, appreciate recommendations -Continue levothyroxine, chlorthalidone, tamsulosin, statin, metoprolol, amlodipine, allopurinol -Continue to monitor closely for any bleeding -PT to evaluate and treat DVTP: Heparin/coumadin bridging Regular Diet Mild to severe pain pathway FULL CODE Problem List: 1. DVT (deep venous thrombosis) 2. Pulmonary embolism Pain Ratin Pain Location: Not applicable Pain Goal: Pain 4 or less Pain Plan: Current regimen Tomorrow's Labs & Rationales: CBC, INR ROMÁN WILLIAMSON MD 08/20/16 1440: Attending MD Review Statement Attending Statement Attending MD Statement: examined this patient, discuss w/resident/PA/ORTHOPAEDIC PHYSICIAN ASSISTANT, agreed w/resident/PA/ORTHOPAEDIC PHYSICIAN ASSISTANT, reviewed EMR data (avail), discussed with nursing, discussed with case mgmt Attending Assessment/Plan: Patient is doing okay. He realizes that now he can be more active than when he first came in and he is fully anticoagulated with IV heparin for more than 24 hours and he's gotten a couple of doses of Coumadin. Will dose his Coumadin at 5 today as his INR is 1.78. He will need an overlap of 24 hours even after he reaches a therapeutic Coumadin. We'll replete his potassium. We can take him off the monitor he's had no events and he has no right heart strain on his echo. He does have underlying CAD with a bioprosthetic valve. His hemoglobin and hematocrit have stayed stable. And will follow closely.
--- NOTE | 2016-08-20 08:44 | PN- Pulmonary ---
Subjective HPI/Critical Care Issues: The patient is awake and alert. He reports feeling improved overall. He has no chest pain. He denies any significant dyspnea on exertion. He has no cough, fever, sputum production or wheezing. He offers no new complaints today. Objective Current Medications: Current Medications Sig/Geri Start time Last Medication Dose Route Stop Time Status Admin Acetaminophen 650 MG Q8P PRN 08/16 1630 AC PO Allopurinol 300 MG DAILY 08/17 1000 AC 08/19 PO 1012 Amlodipine Besylate 10 MG DAILY 08/17 1000 AC 08/19 PO 1012 Atorvastatin Calcium 20 MG 1700 08/16 1700 AC 08/19 PO 1726 Benzonatate 100 MG TID 08/18 1000 AC 08/19 PO 2207 Chlorthalidone 25 MG QAM 08/17 1000 AC 08/19 PO 1011 Docusate Sodium 100 MG DAILY 08/16 1603 AC 08/19 PO 1011 Ezetimibe 10 MG DAILY 08/17 1000 AC 08/19 PO 1012 Ferrous Sulfate 325 MG BID 08/16 2200 AC 08/19 PO 2207 Fluticasone 2 SPRAY DAILY 08/16 1604 AC 08/16 Propionate JEF 1932 Gemfibrozil 600 MG BID 08/16 2200 AC 08/19 PO 2207 Guaifenesin 600 MG Q12 08/18 1000 AC 08/19 PO 2207 Guaifenesin 600 MG BID PRN 08/16 1615 AC PO Heparin Sodium 25,000 UNIT .STK-MED ONE 08/19 1431 DC (Porcine) IV 08/19 1432 Heparin Sodium 25,000 UNIT Q24H 08/16 1400 AC 08/19 (Porcine) IV 1509 Sodium Chloride 500 ML Hydromorphone HCl 4 MG Q6P PRN 08/16 1615 AC 08/20 PO 0103 Levothyroxine Sodium 0.137 MG DAILY AC 08/17 0700 AC 08/20 PO 0604 Magnesium Hydroxide 30 ML BID PRN 08/16 1615 AC PO Memantine 10 MG BID 08/17 1000 AC 08/19 PO 2207 Metoprolol Tartrate 75 MG BID 08/16 2200 AC 08/19 PO 2209 Nitroglycerin 0.4 MG DAILY 08/16 1607 AC 08/19 TOP 1010 Omeprazole 40 MG DAILY AC 08/17 0700 AC 08/20 PO 0604 Polyethylene Glycol 17 GM DAILY 08/17 1000 AC 08/19 PO 1014 Prednisolone 1 GTT DAILY 08/17 1000 AC 08/19 OPH 1011 Tamsulosin HCl 0.4 MG QPM 08/16 2200 AC 08/19 PO 2209 Warfarin Sodium 5 MG COUMADIN 17008/20 1700 AC PO 08/20 1701 Warfarin Sodium 5 MG COUMADIN 1700 08/19 1700 DC 08/19 PO 08/19 1701 1727 Vital Signs & I&O Last 24 Hrs of Vitals and I&O: Vital Signs Date Time Temp Pulse Resp B/P Pulse O2 O2 Flow FiO2 Ox Delivery Rate 08/20 0020 99.5 68 12 134/78 95 Nasal 3.0L Cannula 08/20 0000 Nasal 2.0L Cannula 08/19 2209 80 156/78 08/19 2209 80 156/78 08/19 1910 94 Room Air 08/19 1600 95 Room Air 08/19 1545 98.7 66 16 132/68 92 Room Air 08/19 1012 72 150/80 08/19 1011 72 150/80 Intake & Output 08/20 1600 08/20 0800 08/20 0000 Intake Total 100 620 Output Total 200 1300 Balance -100 -680 Intake, IV 20 Intake, Oral 100 600 Number 1 Bowel Movements Output, Urine 200 1300 Patient 203 lb Weight Physical Exam General Appearance: alert, awake, comfortable Head: atraumatic, normal appearance Neck: supple Respiratory: quiet respiration Cardiovascular: S1 and S2 heard, distant Gastrointestinal: normal bowel sounds, soft, non-tender Extremities: minimal edema Skin: intact, normal color, warm/dry Results Last 24 Hrs of Lab Results: Laboratory Tests 08/20/16 0400: PT 18.6 H, INR 1.78 H 08/20/16 0400: Anion Gap 9, Estimated GFR > 60, BUN/Creatinine Ratio 13.8, Magnesium 1.7, APTT 67 H, CBC w Diff NO MAN DIFF REQ, RBC 4.31 L, MCV 86.3, MCH 28.5, RDW 16.6 H, MPV 7.3 L, Gran % 47.8, Lymphocytes % 36.7, Monocytes % 11.4 H, Eosinophils % 3.1, Basophils % 1.0, Absolute Granulocytes 2.7, Absolute Lymphocytes 2.1, Absolute Monocytes 0.6, Absolute Eosinophils 0.2, Absolute Basophils 0.1, PUBS MCHC 33.0 08/19/16 1617: APTT 62 H Impression/Plan Impression/Plan Impression/Plan: 1. Bilateral subsegmental PEs without evidence of heart strain or hemodynamic instability. LE dopplers positive for DVT. 2. Recent left subcapsular hematoma following lithotripsy, improved on repeat imaging. 3. DENA on nasal CPAP. 4. S/P MVR. 5. CAD, s/p CABG. 6. Hypokalemia. Recommendations: * Replete potassium. * Continue IV Heparin/Coumadin. * Follow up hematology recommendations. * Nocturnal CPAP to continue. * Neb treatments as needed. * Supplemental oxygen to maintain sats greater than 92%. Attempt to wean off if able. * Increase activity, ambulate as tolerated. * Continue all supportive care.
--- NOTE | 2016-08-20 09:02 | PN- Student ---
Subjective Subjective: Patient is seen and examined at bedside. Patient is doing well. Patient's chest pain has resolved. Patient still has intermittment dry cough episodes but it is no longer associated with a stabbing chest pain. Patient reports some moderate groin bilaterally overnight similar to his pain associated with renal stones but that has resolved on its own. Patient denies headache, vision changes, chest pain, palpitations, abdominal pain, flank pain, back pain, pain in his lower extremities and foot. Patient is having normal bowel movements and reports no difficulty with urination. Objective Objective: Gen: AAOx3, NAD Skin: Warm to Touch, no cyanosis, jaundice Neck: No carotid bruits appreciated Cardiac: RRR, no m/r/g, normal S1, S2 Resp: CTAB, decreased breath sounds bilaterally Abdomen: NTTP diffusely, no guarding and rebound tenderness Ext: No pitting edema, no deformities, strength 5/5 lower and upper extremities, no atrophy Results Results: Laboratory Tests 08/20/16 0400: PT 18.6 H, INR 1.78 H 08/20/16 0400: Anion Gap 9, Estimated GFR > 60, BUN/Creatinine Ratio 13.8, Magnesium 1.7, APTT 67 H, CBC w Diff NO MAN DIFF REQ, RBC 4.31 L, MCV 86.3, MCH 28.5, RDW 16.6 H, MPV 7.3 L, Gran % 47.8, Lymphocytes % 36.7, Monocytes % 11.4 H, Eosinophils % 3.1, Basophils % 1.0, Absolute Granulocytes 2.7, Absolute Lymphocytes 2.1, Absolute Monocytes 0.6, Absolute Eosinophils 0.2, Absolute Basophils 0.1, PUBS MCHC 33.0 08/19/16 1617: APTT 62 H 08/19/16 0425: PT 14.3 H, INR 1.37 H 08/19/16 0425: APTT 65 H, CBC w Diff NO MAN DIFF REQ, RBC 4.07 L, MCV 86.4, MCH 28.5, RDW 17.2 H, MPV 7.5, Gran % 54.2, Lymphocytes % 31.3, Monocytes % 11.2 H, Eosinophils % 2.6, Basophils % 0.7, Absolute Granulocytes 3.0, Absolute Lymphocytes 1.7, Absolute Monocytes 0.6, Absolute Eosinophils 0.1, Absolute Basophils 0, PUBS MCHC 33.0 08/18/16 1545: APTT 68 H 08/18/16 0845: Protein C Activity Pending, Protein S Pending 08/18/16324: PT 13.2 H, INR 1.26 H 08/18/16324: APTT 63 H, CBC w Diff NO MAN DIFF REQ, RBC 3.97 L, MCV 86.2, MCH 28.6, RDW 16.9 H, MPV 7.7, Gran % 47.9, Lymphocytes % 37.6, Monocytes % 10.9 H, Eosinophils % 2.5, Basophils % 1.1, Absolute Granulocytes 2.8, Absolute Lymphocytes 2.2, Absolute Monocytes 0.6, Absolute Eosinophils 0.1, Absolute Basophils 0.1, PUBS MCHC 33.2 08/17/16 1525: APTT 62 H Assessment/Plan Assessment: 70 yo male with a complication medical history significant for MVR with bovine valve, recurrent nephrolithiasis requiring Lithotripsy, HTN, HLD, Plan: Bilateral Pulmonary Embolism Deep Venous Thrombosis of Left Peroneal Vein Pleuritic Chest Pain
--- NOTE | 2016-08-20 11:07 | PN- Hematology ---
Subjective Subjective: He denies any new symptoms. He had one episode of lower abdominal pain. Review of Systems Constitutional: Denies: chills, fever. Cardiovascular: Denies: chest pain. Gastrointestinal: Reports: abdominal pain. Denies: bloody stool. Genitourinary: Denies: hematuria. All Other Systems: Reviewed and Negative Objective Vital Signs and I&Os Vital Signs Date Time Temp Pulse Resp B/P Pulse O2 O2 Flow FiO2 Ox Delivery Rate 08/20 0815 92 130/72 08/20 0914 92 130/72 08/20 0730 97.2 92 20 130/72 95 Nasal 3.0L Cannula 08/20 0020 99.5 68 12 134/78 95 Nasal 3.0L Cannula 08/20 0000 Nasal 2.0L Cannula 08/19 2209 80 156/78 08/19 2209 80 156/78 08/19 1910 94 Room Air 08/19 1600 95 Room Air 08/19 1545 98.7 66 16 132/68 92 Room Air Intake & Output 08/20 1600 08/20 0800 08/20 0000 08/19 1600 08/19 0800 08/19 0000 Intake Total 100 620 850 478.4 758 Output Total 200 1300 750 300 425 Balance -100 -680 100 178.4 333 Intake, IV 20 250 238.4 238 Intake, Oral 100 600 600 240 520 Number 1 1 Bowel Movements Output, Urine 200 1300 750 300 425 Patient 92.079 kg 93.157 kg Weight Physical Exam: General Appearance: alert, awake, comfortable, on 2L NC Head: atraumatic, normal appearance Respiratory: normal breath sounds, chest non-tender, no respiratory distress Cardiovascular: tachycardia, systolic murmur Gastrointestinal: normal bowel sounds, soft, tenderness Extremities: no edema, no calf tenderness Cranial Nerves: normal hearing, normal speech Skin: no rash Current Medications: Current Medications Sig/Geri Start time Last Medication Dose Route Stop Time Status Admin Acetaminophen 650 MG Q8P PRN 08/16 1630 AC PO Allopurinol 300 MG DAILY 08/17 1000 AC 08/20 PO 09 Amlodipine Besylate 10 MG DAILY 08/17 1000 AC 08/20 PO 0915 Atorvastatin Calcium 20 MG 1700 08/16 1700 AC 08/19 PO 1726 Benzonatate 100 MG TID 08/18 1000 AC 08/20 PO 0914 Chlorthalidone 25 MG QAM 08/17 1000 AC 08/20 PO 0915 Docusate Sodium 100 MG DAILY 08/16 1603 AC 08/20 PO 0914 Ezetimibe 10 MG DAILY 08/17 1000 AC 08/20 PO 0914 Ferrous Sulfate 325 MG BID 08/16 2200 AC 08/20 PO 0914 Fluticasone 2 SPRAY DAILY 08/16 1604 AC 08/16 Propionate JEF 1932 Gemfibrozil 600 MG BID 08/16 2200 AC 08/20 PO 0914 Guaifenesin 600 MG Q12 08/18 1000 AC 08/20 PO 0914 Guaifenesin 600 MG BID PRN 08/16 1615 AC PO Heparin Sodium 25,000 UNIT .STK-MED ONE 08/19 1431 DC (Porcine) IV 08/19 1432 Heparin Sodium 25,000 UNIT Q24H 08/16 1400 AC 08/19 (Porcine) IV 1509 Sodium Chloride 500 ML Hydromorphone HCl 4 MG Q6P PRN 08/16 1615 AC 08/20 PO 0103 Levothyroxine Sodium 0.137 MG DAILY AC 08/17 0700 AC 08/20 PO 0604 Magnesium Hydroxide 30 ML BID PRN 08/16 1615 AC PO Memantine 10 MG BID 08/17 1000 AC 08/20 PO 0915 Metoprolol Tartrate 75 MG BID 08/16 2200 AC 08/20 PO 0914 Nitroglycerin 0.4 MG DAILY 08/16 1607 AC 08/20 TOP 0913 Omeprazole 40 MG DAILY AC 08/17 0700 AC 08/20 PO 0604 Polyethylene Glycol 17 GM DAILY 08/17 1000 AC 08/20 PO 0914 Prednisolone 1 GTT DAILY 08/17 1000 AC 08/20 OPH 0914 Tamsulosin HCl 0.4 MG QPM 08/16 2200 AC 08/19 PO 2209 Warfarin Sodium 5 MG COUMADIN 1700 08/20 1700 AC PO 08/20 1701 Warfarin Sodium 5 MG COUMADIN 1700 08/19 1700 DC 08/19 PO 08/19 1701 1727 Results Last 24 Hours of Lab Results: Laboratory Tests 08/20 08/20 08/19 0400 0400 1617 Chemistry Sodium (137 - 145 mmol/L) 136 L Potassium (3.5 - 5.1 mmol/L) 3.4 L Chloride (98 - 107 mmol/L) 98 Carbon Dioxide (22 - 30 mmol/L) 29 Anion Gap (5 - 16) 9 BUN (9 - 20 mg/dL) 11 Creatinine (0.7 - 1.2 mg/dL) 0.8 Estimated GFR (>60 ml/min) > 60 BUN/Creatinine Ratio (7 - 25 %) 13.8 Magnesium (1.6 - 2.3 mg/dL) 1.7 Coagulation PT (9.4 - 12.5 SEC) 18.6 H INR (0.90 - 1.17) 1.78 H APTT (25 - 37 SEC) 67 H 62 H Hematology CBC w Diff NO MAN DIFF REQ WBC (4.8 - 10.8 /CUMM) 5.6 RBC (4.70 - 6.10 /CUMM) 4.31 L Hgb (14.0 - 18.0 G/DL) 12.3 L Hct (42 - 52 %) 37.2 L MCV (80.0 - 94.0 FL) 86.3 MCH (27.0 - 31.0 PG) 28.5 RDW (11.5 - 14.5 %) 16.6 H Plt Count (130 - 400 /CUMM) 302 MPV (7.4 - 10.4 FL) 7.3 L Gran % (42.2 - 75.2 %) 47.8 Lymphocytes % (20.5 - 51.1 %) 36.7 Monocytes % (1.7 - 9.3 %) 11.4 H Eosinophils % (0 - 5 %) 3.1 Basophils % (0.0 - 2.0 %) 1.0 Absolute Granulocytes (1.4 - 6.5 /CUMM) 2.7 Absolute Lymphocytes (1.2 - 3.4 /CUMM) 2.1 Absolute Monocytes (0.10 - 0.60 /CUMM) 0.6 Absolute Eosinophils (0.0 - 0.7 /CUMM) 0.2 Absolute Basophils (0.0 - 0.2 /CUMM) 0.1 PUBS MCHC (33.0 - 37.0 G/DL) 33.0 Assessment/Plan Assessment/Recommendations: Mr. Soriano is a 70-year-old male with CAD s/p CABG, MV replacement with bovine valve, hypertension, DENA on nasal CPAP, and recent hospitalization for left subcapsular renal hematoma after lithotripsy who presented to the ED with chest pain. He was found to have left peroneal veins thrombosis with bilateral subsegmental pulmonary emboli. He is currently on anticoagulation with heparin drip and bridging to warfarin. He is at higher risk of bleeding given recent recent left subcapsular renal hematoma. He seems stable on anticoagulation at the moment. His hemoglobin is stable. Protein C and S was sent but was 12 hours after warfarin was started. IVC filter is not needed at the moment, unless he has bleeding complications. Recommendations: 1. Monitor closely for bleeding 2. Age appropriate malignancy screening as outpatient. 3. Can follow up as outpatient to discuss work up Please call [phone] with any questions. Problem List: 1. DVT (deep venous thrombosis) 2. Pulmonary embolism 3. Acute blood loss as cause of postoperative anemia
[2016-08-20 15:30] VITALS: BP 120/78
[2016-08-20 18:17] LABS: PTT 64 SEC (25-37)
[2016-08-20 23:45] VITALS: BP 140/80
[2016-08-21 05:19] LABS: ABSOLUTE BASOPHIL COUNT 0 /CUMM (0.0-0.2); ABSOLUTE EOSINOPHIL COUNT 0.2 /CUMM (0.0-0.7); ABSOLUTE GRANULOCYTE CT 3.3 /CUMM (1.4-6.5); BASOPHIL % 0.7 % (0.0-2.0); EOSINOPHIL % 2.9 % (0-5); GRANULOCYTE % 51.6 % (42.2-75.2); HEMATOCRIT 40.6 % (42-52); MEAN CORPUSCULAR HGB 28.5 PG (27.0-31.0); MEAN CORPUSCULAR HGB CONC 32.9 G/DL (33.0-37.0); MEAN CORPUSCULAR VOLUME 86.7 FL (80.0-94.0); MEAN PLATELET VOLUME 7.4 FL (7.4-10.4); PLATELET COUNT 297 /CUMM (130-400); RBC DISTRIBUTION WIDTH 16.9 % (11.5-14.5); RED BLOOD CELL CT 4.69 /CUMM (4.70-6.10); WHITE BLOOD CELL COUNT 6.3 /CUMM (4.8-10.8)
[2016-08-21 05:23] LABS: PT 25.3 SEC (9.4-12.5); PTT 91 SEC (25-37)
--- NOTE | 2016-08-21 06:10 | PN- Housestaff ---
XI GARCIA,ZAIRE 08/21/16 0609: Subjective Follow-up For: Bilateral PE Left subcapsular perinephric hematoma Tele-Events Since Last Visit: Off tele Subjective: Patient seen and examined at bedside. He reports feeling well with no new complaints. He reports his abdomen is still "sensitive to touch" with mild pain at 3-4 out of 10 but it is improving. Denies any f/c, headache, chest pain, dyspnea, palpitations, n/v/c/d. No events reported overnight. Review of Systems Constitutional: Reports: see HPI. Objective Last 24 Hrs of Vital Signs/I&O Vital Signs Date Time Temp Pulse Resp B/P Pulse O2 O2 Flow FiO2 Ox Delivery Rate 08/21 0746 98.7 91 18 136/80 96 Nasal 2.0L Cannula 08/21 0017 77 96 08/21 0000 96 Nasal 2.0L Cannula 08/20 2345 98.5 82 18 140/80 94 Room Air 08/20 2049 87 160/70 08/20 2050 82 160/70 08/20 1530 98.6 83 18 120/78 92 Nasal Cannula Intake & Output 08/21 1600 08/21 0800 08/21 0000 Intake Total 438.4 690 Output Total 700 850 Balance -261.6 -160 Intake, IV 238.4 240 Intake, Oral 200 450 Number 0 Bowel Movements Output, Urine 700 850 Patient 92.306 kg Weight Physical Exam General Appearance: Alert, Oriented X3, Cooperative, No Acute Distress Other Physical Findings: Cardiovascular: Regular Rate, Normal S1, Normal S2 Lungs: Clear to Auscultation, Normal Air Movement Abdomen: Normal Bowel Sounds, Soft, No Tenderness Extremities: No Edema Current Medications: Current Medications Sig/Geri Start time Last Medication Dose Route Stop Time Status Admin Acetaminophen 650 MG Q8P PRN 08/16 1630 AC PO Allopurinol 300 MG DAILY 08/17 1000 AC 08/20 PO 0915 Amlodipine Besylate 10 MG DAILY 08/17 1000 AC 08/20 PO 09 Atorvastatin Calcium 20 MG 1700 08/16 1700 AC 08/20 PO 1720 Benzonatate 100 MG TID 08/18 1000 AC 08/20 PO 204 Chlorthalidone 25 MG QAM 08/17 1000 AC 08/20 PO 0915 Docusate Sodium 100 MG DAILY 08/16 1603 AC 08/20 PO 0914 Ezetimibe 10 MG DAILY 08/17 1000 AC 08/20 PO 0914 Ferrous Sulfate 325 MG BID 08/16 2200 AC 08/20 PO 204 Fluticasone 2 SPRAY DAILY 08/16 1604 AC 08/16 Propionate JEF 1932 Gemfibrozil 600 MG BID 08/16 2200 AC 08/20 PO 204 Guaifenesin 600 MG Q12 08/18 1000 AC 08/20 PO 2047 Guaifenesin 600 MG BID PRN 08/16 1615 AC PO Heparin Sodium 25,000 UNIT Q24H 08/16 1400 AC 08/20 (Porcine) IV 1047 Sodium Chloride 500 ML Hydromorphone HCl 4 MG Q6P PRN 08/16 1615 AC 08/20 PO 204 Levothyroxine Sodium 0.137 MG DAILY AC 08/17 0700 AC 08/21 PO 0610 Magnesium Hydroxide 30 ML BID PRN 08/16 1615 AC PO Memantine 10 MG BID 08/17 1000 AC 08/20 PO 204 Metoprolol Tartrate 75 MG BID 08/16 2200 AC 08/20 PO 205 Nitroglycerin 0.4 MG DAILY 08/16 1607 AC 08/20 TOP 09 Omeprazole 40 MG DAILY AC 08/17 0700 AC 08/21 PO 0610 Polyethylene Glycol 17 GM DAILY 08/17 1000 AC 08/20 PO 0914 Potassium Chloride 40 MEQ ONCE ONE 08/20 1830 DC 08/20 PO 08/20 183 2046 Prednisolone 1 GTT DAILY 08/17 1000 AC 08/20 OPH 0914 Tamsulosin HCl 0.4 MG QPM 08/16 2200 AC 08/20 PO 205 Warfarin Sodium 3 MG COUMADIN 1700 ONE 08/21 1700 CAN PO 08/21 1701 Warfarin Sodium 2.5 MG COUMADIN 1700 ONE 08/21 1700 AC PO 08/21 1701 Warfarin Sodium 5 MG COUMADIN 1700 08/20 1700 DC 08/20 PO 08/20 1701 1720 Last 24 Hrs of Lab/Gregory Results Last 24 Hrs of Labs/Mics: Laboratory Tests 08/21/16 0600: PT Cancelled, INR Cancelled 08/21/16 0435: PT 25.3 H, INR 2.43 H, APTT 91 H, CBC w Diff NO MAN DIFF REQ, RBC 4.69 L, MCV 86.7, MCH 28.5, RDW 16.9 H, MPV 7.4, Gran % 51.6, Lymphocytes % 32.3, Monocytes % 12.5 H, Eosinophils % 2.9, Basophils % 0.7, Absolute Granulocytes 3.3, Absolute Eosinophils 0.2, Absolute Basophils 0, PUBS MCHC 32.9 L 08/20/16 1640: APTT 64 H Assessment/Plan Assessment: 70-year-old gentleman with a past medical history of hypertension, HCV, GERD, hyperlipidemia, dyspepsia, mitral valve replacement in May 2014 (bovine) and a history of multiple nephrolithiasis, recent admission July 24 for left renal subcapsular hematoma with extension to the retroperitoneum status post lithotripsy ESWL procedure, came to ED for evaluation of right sided severe chest pain, CTA chest showed bilateral PE, Dopplers of lower extremities showed deep venous thrombosis of the peroneal veins. Problem list Bilateral Pulmonary embolism DVT Mitral valve replacement Hypertension Left renal subcapsular hematoma Plan: -Echo results show normal EF to 55%, mild LV enlargement, normal seated/ functioning bioprosthetic AC -Check INR daily, dose Coumadin accordingly - 2.43 today, 2.5 mg of Coumadin given. -Cont IV heparin for 24 hours with INR currently in a nearly therapeutic dose -Apprerciate cardio recs, consider IVC filter if any enlargement of hematoma or contraindication to anticoagulation. -Appreciate heme/onc recs, IVC filter not indicated at this time -Appreciate pulm recs -Continue home meds levothyroxine, chlorthalidone, tamsulosin, statin, metoprolol, amlodipine, allopurinol -Continue to monitor closely for any bleeding -PT to evaluate and treat DVTP: Heparin/coumadin bridging Regular Diet Mild to severe pain pathway FULL CODE Problem List: 1. Traumatic perinephric hematoma of left kidney 2. Acute blood loss as cause of postoperative anemia 3. Elevated troponin 4. Pulmonary embolism 5. Chest pain 6. DVT (deep venous thrombosis) Pain Ratin Pain Location: Abdomen Pain Goal: Remain pain free Pain Plan: Mild pathway Tomorrow's Labs & Rationales: CBC INR ROMÁN WILLIAMSON MD 08/21/16 1316: Attending Review Statement Attending Statement Attending MD Statement: examined this patient, discuss w/resident/PA/MOLD RELEASE WORKER, agreed w/resident/PA/MOLD RELEASE WORKER, reviewed EMR data (avail), discussed with nursing, discussed with case mgmt, reviewed images Attending Assessment/Plan: Patient feels okay. He is walking around now. He says he is not as active as he likes to be. His INR today is 2.43. He is a 70-year-old with a history of a bypass, prosthetic heart valve, ESWL complicated by a hematoma is here with stasis associated DVT. Because of the hematoma he is getting IV unfractionated heparin with Coumadin. We started the Coumadin on Saturday the and today is the first is INR is therapeutic so will overlap with the IV heparin for 24 hours on a therapeutic INR. If his INR remains therapeutic tomorrow then we'll stop the heparin and discharge him with close outpatient follow-up. I spoke to him at length about the need for close INR checks, duration of anticoagulation and outpatient hematology follow-up.
[2016-08-21 07:46] VITALS: BP 136/80
--- NOTE | 2016-08-21 08:49 | PN- Pulmonary ---
Subjective HPI/Critical Care Issues: The patient is awake and alert. He denies chest pain. He is feeling better overall. His INR is now therapeutic. His oxygen saturation is 96% on 2 L nasal cannula. He offers no new complaints. Objective Current Medications: Current Medications Sig/Geri Start time Last Medication Dose Route Stop Time Status Admin Acetaminophen 650 MG Q8P PRN 08/16 1630 AC PO Allopurinol 300 MG DAILY 08/17 1000 AC 08/20 PO 0915 Amlodipine Besylate 10 MG DAILY 08/17 1000 AC 08/20 PO 0915 Atorvastatin Calcium 20 MG 1700 08/16 1700 AC 08/20 PO 1720 Benzonatate 100 MG TID 08/18 1000 AC 08/20 PO 2047 Chlorthalidone 25 MG QAM 08/17 1000 AC 08/20 PO 0915 Docusate Sodium 100 MG DAILY 08/16 1603 AC 08/20 PO 0914 Ezetimibe 10 MG DAILY 08/17 1000 AC 08/20 PO 0914 Ferrous Sulfate 325 MG BID 08/16 2200 AC 08/20 PO 2047 Fluticasone 2 SPRAY DAILY 08/16 1604 AC 08/16 Propionate JEF 1932 Gemfibrozil 600 MG BID 08/16 2200 AC 08/20 PO 2047 Guaifenesin 600 MG Q12 08/18 1000 AC 08/20 PO 2047 Guaifenesin 600 MG BID PRN 08/16 1615 AC PO Heparin Sodium 25,000 UNIT Q24H 08/16 1400 AC 08/20 (Porcine) IV 1047 Sodium Chloride 500 ML Hydromorphone HCl 4 MG Q6P PRN 08/16 1615 AC 08/20 PO 2046 Levothyroxine Sodium 0.137 MG DAILY AC 08/17 0700 AC 08/21 PO 0610 Magnesium Hydroxide 30 ML BID PRN 08/16 1615 AC PO Memantine 10 MG BID 08/17 1000 AC 08/20 PO 2047 Metoprolol Tartrate 75 MG BID 08/16 2200 AC 08/20 PO 2050 Nitroglycerin 0.4 MG DAILY 08/16 1607 AC 08/20 TOP 0913 Omeprazole 40 MG DAILY AC 08/17 0700 AC 08/21 PO 0610 Polyethylene Glycol 17 GM DAILY 08/17 1000 AC 08/20 PO 0914 Potassium Chloride 40 MEQ ONCE ONE 08/20 1830 DC 08/20 PO 08/20 1831 2046 Prednisolone 1 GTT DAILY 08/17 1000 AC 08/20 OPH 0914 Tamsulosin HCl 0.4 MG QPM 08/16 2200 AC 08/20 PO 205 Warfarin Sodium 3 MG COUMADIN 170 ONE 08/21 1700 CAN PO 08/21 170 Warfarin Sodium 2.5 MG COUMADIN 1700 ONE 08/21 1700 AC PO 08/21 1701 Warfarin Sodium 5 MG COUMADIN 1700 08/20 1700 DC 08/20 PO 08/20 1701 1720 Vital Signs & I&O Last 24 Hrs of Vitals and I&O: Vital Signs Date Time Temp Pulse Resp B/P Pulse O2 O2 Flow FiO2 Ox Delivery Rate 08/21 0746 98.7 91 18 136/80 96 Nasal 2.0L Cannula 08/21 0017 77 96 08/21 0000 96 Nasal 2.0L Cannula 08/20 2345 98.5 82 18 140/80 94 Room Air 08/20 2049 87 160/70 08/20 2049 82 160/70 08/20 1530 98.6 83 18 120/78 92 Nasal Cannula 08/20 0915 92 130/72 08/20 0914 92 130/72 Intake & Output 08/21 1600 08/21 0800 08/21 0000 Intake Total 438.4 690 Output Total 700 850 Balance -261.6 -160 Intake, IV 238.4 240 Intake, Oral 200 450 Number 0 Bowel Movements Output, Urine 700 850 Patient 204 lb Weight Physical Exam General Appearance: alert, awake, comfortable Head: atraumatic, normal appearance Neck: supple Respiratory: quiet respiration Cardiovascular: S1 and S2 heard, distant Gastrointestinal: normal bowel sounds, soft, non-tender Extremities: minimal edema Skin: intact, normal color, warm/dry Results Last 24 Hrs of Lab Results: Laboratory Tests 08/21/16 0600: PT Cancelled, INR Cancelled 08/21/16 0435: PT 25.3 H, INR 2.43 H, APTT 91 H, CBC w Diff NO MAN DIFF REQ, RBC 4.69 L, MCV 86.7, MCH 28.5, RDW 16.9 H, MPV 7.4, Gran % 51.6, Lymphocytes % 32.3, Monocytes % 12.5 H, Eosinophils % 2.9, Basophils % 0.7, Absolute Granulocytes 3.3, Absolute Eosinophils 0.2, Absolute Basophils 0, PUBS MCHC 32.9 L 08/20/16 1640: APTT 64 H Impression/Plan Impression/Plan Impression/Plan: 1. Bilateral subsegmental PEs, + LE DVT. 2. Recent left subcapsular hematoma following lithotripsy - patient at increased risk of bleeding. 3. DENA on nasal CPAP. 4. S/P MVR. 5. CAD, s/p CABG. Recommendations: * Continue coumadin for therapeutic INR. * Nocturnal CPAP to continue. * Neb treatments as needed. * Supplemental oxygen to maintain sats greater than 92%. Attempt to wean off if able. * Increase activity, ambulate as tolerated. * Continue all supportive care.
--- NOTE | 2016-08-21 10:26 | Patient Discharge Instructions ---
Discharge Instructions General Discharge Information Special Instructions: Please follow up with Dr. Baker (primary care), Dr. Allison (mortgage originator) and Dr. Lemon (pulmonlogist) within 1 week following discharge. Please have your home nurse to check your INR on Saturday (August 24) and send the results to Dr. Allison. Please follow up with Dr. Allison to check INR regularly afterwards. Diet Continue normal diet: Yes Activity Full Activity/No Limits: Yes (as tolerated) Acute Coronary Syndrome Inclusion Criteria At DC or during hospital stay patient has or had the following: ACS DIAGNOSIS No Discharge Core Measures Meds if any: Prescribed or Continued at Discharge Meds if any: NOT Prescribed or Continued at Discharge Congestive Heart Failure Inclusion Criteria At DC or during hospital stay patient has or had the following: CHF DIAGNOSIS No Discharge Core Measures Meds if any: Prescribed or Continued at Discharge Meds if any: NOT Prescribed or Continued at Discharge Cerebrovascular accident Inclusion Criteria At DC or during hospital stay patient has or had the following: CVA/TIA Diagnosis No Discharge Core Measures Meds if any: Prescribed or Continued at Discharge Meds if any: NOT Prescribed or Continued at Discharge Venous thromboembolism Inclusion Criteria VTE Diagnosis Yes VTE Type Pulmonary Embolism VTE Confirmed by (Test) CT CHEST ANGIOGRAM Discharge Core Measures - Per Current guidelines, there needs to be overlap - treatment for the first 5 days of Warfarin therapy. - If discharged on Warfarin prior to 5 days of - overlap therapy, the patient will need to be - assessed for post discharge needs including - *Post discharge parental anticoagulation - *Warfarin and/or parental anticoagulation education - *Follow up date to check INR post discharge At least 5 days overlap therapy as Inpatient Yes Meds if any: Prescribed or Continued at Discharge Note: Overlap Therapy is Warfarin and Anticoagulant Meds if any: NOT Prescribed or Continued at Discharge
[2016-08-21] MEDS ORDERED: COUMADIN2.5 M1 PO (14:16)
[2016-08-21 14:52] LABS: PTT 70 SEC (25-37)
[2016-08-21 15:54] VITALS: BP 142/86
[2016-08-21 23:00] VITALS: BP 142/80
[2016-08-22 02:50] LABS: ABSOLUTE BASOPHIL COUNT 0 /CUMM (0.0-0.2); ABSOLUTE EOSINOPHIL COUNT 0.2 /CUMM (0.0-0.7); ABSOLUTE GRANULOCYTE CT 3.7 /CUMM (1.4-6.5); ABSOLUTE LYMPH COUNT 2.6 /CUMM (1.2-3.4); ABSOLUTE MONOCYTE COUNT 0.9 /CUMM (0.10-0.60); BASOPHIL % 0.6 % (0.0-2.0); EOSINOPHIL % 2.2 % (0-5); GRANULOCYTE % 49.3 % (42.2-75.2); HEMATOCRIT 40.8 % (42-52); MEAN CORPUSCULAR HGB 28.4 PG (27.0-31.0); MEAN CORPUSCULAR HGB CONC 33.6 G/DL (33.0-37.0); MEAN CORPUSCULAR VOLUME 84.7 FL (80.0-94.0); MEAN PLATELET VOLUME 7.2 FL (7.4-10.4); PLATELET COUNT 294 /CUMM (130-400); RBC DISTRIBUTION WIDTH 16.6 % (11.5-14.5); RED BLOOD CELL CT 4.82 /CUMM (4.70-6.10); WHITE BLOOD CELL COUNT 7.4 /CUMM (4.8-10.8)
[2016-08-22 03:01] LABS: PTT 78 SEC (25-37)
--- NOTE | 2016-08-22 06:01 | PN- Housestaff ---
XI GARCIA,ZAIRE 08/22/16 0600: Subjective Follow-up For: Bilateral PE Left subcapsular perinephric hematoma Tele-Events Since Last Visit: Off tele Subjective: Patient seen and examined at bedside. No events reported overnight. He offers no new compalints and feels ready to go home. He reports feeling well with no new complaints. Cough and abdominal pain improving. Denies any f/c, headache, chest pain, dyspnea, palpitations, n/v/c/d. Review of Systems Constitutional: Reports: see HPI. Objective Last 24 Hrs of Vital Signs/I&O Vital Signs Date Time Temp Pulse Resp B/P Pulse O2 O2 Flow FiO2 Ox Delivery Rate 08/22 0000 Nasal 2.0L Cannula 08/21 2300 98.4 80 18 142/80 94 Room Air 08/21 2058 80 142/80 08/21 1554 98.7 80 20 142/86 94 Room Air 08/21 0954 91 136/80 08/21 0954 91 136/80 Intake & Output 08/22 1600 08/22 0800 08/22 0000 Intake Total 558 958 Output Total 350 650 Balance 208 308 Intake, IV 208 208 Intake, Oral 350 750 Number 0 0 Bowel Movements Output, Urine 350 650 Patient 91.682 kg Weight Physical Exam General Appearance: Alert, Oriented X3, Cooperative, No Acute Distress Other Physical Findings: Cardiovascular: Regular Rate, Normal S1, Normal S2 Lungs: Clear to Auscultation, Normal Air Movement Abdomen: Normal Bowel Sounds, Soft, No Tenderness Extremities: No Edema Current Medications: Current Medications Sig/Geri Start time Last Medication Dose Route Stop Time Status Admin Acetaminophen 650 MG Q8P PRN 08/16 1630 AC PO Allopurinol 300 MG DAILY 08/17 1000 AC 08/21 PO 954 Amlodipine Besylate 10 MG DAILY 08/17 1000 AC 08/21 PO 0954 Atorvastatin Calcium 20 MG 1700 08/16 1700 AC 08/21 PO 1754 Benzonatate 100 MG TID 08/18 1000 AC 08/21 PO 2056 Chlorthalidone 25 MG QAM 08/17 1000 AC 08/21 PO 09 Docusate Sodium 100 MG DAILY 08/16 1603 AC 08/20 PO 913 Ezetimibe 10 MG DAILY 08/17 1000 AC 08/21 PO 09 Ferrous Sulfate 325 MG BID 08/16 2200 AC 08/21 PO 2057 Fluticasone 2 SPRAY DAILY 08/16 1604 AC 08/21 Propionate JEF 0955 Gemfibrozil 600 MG BID 08/16 2200 AC 08/21 PO 2057 Guaifenesin 600 MG Q12 08/18 1000 AC 08/21 PO 2056 Guaifenesin 600 MG BID PRN 08/16 1615 AC PO Heparin Sodium 25,000 UNIT Q24H 08/16 1400 AC 08/21 (Porcine) IV 1753 Sodium Chloride 500 ML Hydromorphone HCl 4 MG Q6P PRN 08/16 1615 AC 08/21 PO 2056 Levothyroxine Sodium 0.137 MG DAILY AC 08/17 0700 AC 08/22 PO 06 Magnesium Chloride 64 MG ONCE ONE 08/22 0730 DC PO 08/22 0731 Magnesium Hydroxide 30 ML BID PRN 08/16 1615 AC PO Memantine 10 MG BID 08/17 1000 AC 08/21 PO 2056 Metoprolol Tartrate 75 MG BID 08/16 2200 AC 08/21 PO 2057 Nitroglycerin 0.4 MG DAILY 08/16 1607 AC 08/21 TOP 0955 Omeprazole 40 MG DAILY AC 08/17 0700 AC 08/22 PO 0608 Polyethylene Glycol 17 GM DAILY 08/17 1000 AC 08/20 PO 0914 Potassium Chloride 20 MEQ ONCE ONE 08/22 0730 DC PO 08/22 0731 Prednisolone 1 GTT DAILY 08/17 1000 AC 08/21 OPH 0954 Tamsulosin HCl 0.4 MG QPM 08/16 2200 AC 08/21 PO 2057 Warfarin Sodium 2.5 MG COUMADIN 1700 ONE 08/21 1700 DC 08/21 PO 08/21 1701 1754 Last 24 Hrs of Lab/Gregory Results Last 24 Hrs of Labs/Mics: Laboratory Tests 08/22/16 0600: PT Cancelled, INR Cancelled 08/22/16 0235: Anion Gap 10, Estimated GFR > 60, BUN/Creatinine Ratio 16.7, Magnesium 1.8, PT 28.0 H, INR 2.69 H, APTT 78 H, CBC w Diff NO MAN DIFF REQ, RBC 4.82, MCV 84.7 , MCH 28.4, RDW 16.6 H, MPV 7.2 L, Gran % 49.3, Lymphocytes % 35.5, Monocytes % 12.4 H, Eosinophils % 2.2, Basophils % 0.6, Absolute Granulocytes 3.7, Absolute Lymphocytes 2.6, Absolute Monocytes 0.9 H, Absolute Eosinophils 0.2, Absolute Basophils 0, PUBS MCHC 33.6 08/21/16 1421: APTT 70 H Assessment/Plan Assessment: 70-year-old gentleman with a past medical history of hypertension, HCV, GERD, hyperlipidemia, dyspepsia, mitral valve replacement in May 2014 (bovine) and a history of multiple nephrolithiasis, recent admission July 24 for left renal subcapsular hematoma with extension to the retroperitoneum status post lithotripsy ESWL procedure, came to ED for evaluation of right sided severe chest pain, CTA chest showed bilateral PE, Dopplers of lower extremities showed deep venous thrombosis of the peroneal veins. Echo results show normal EF to 55% , mild LV enlargement, normal seated/functioning bioprosthetic AC Problem list Bilateral Pulmonary embolism DVT Mitral valve replacement Hypertension Left renal subcapsular hematoma Plan: -Check INR daily, dose Coumadin accordingly - INR 2.6 today, discharged on Coumadin 2.5mg daily -Discontinue IV heparin as patient received it for 24 hours with INR in a therapeutic dose -Apprerciate cardio recs, consider IVC filter if any enlargement of hematoma or contraindication to anticoagulation. -Appreciate heme/onc recs, IVC filter not indicated at this time -Appreciate pulm recs -Continue home meds levothyroxine, chlorthalidone, tamsulosin, statin, metoprolol, amlodipine, allopurinol -Continue to monitor closely for any bleeding -PT to evaluate and treat DVTP: Heparin/coumadin bridging Regular Diet Mild to severe pain pathway FULL CODE Problem List: 1. Pulmonary embolism 2. Chest pain 3. DVT (deep venous thrombosis) 4. Traumatic perinephric hematoma of left kidney Pain Ratin Pain Location: Abdomen Pain Goal: Remain pain free Pain Plan: Mild pathway Tomorrow's Labs & Rationales: None - discharge ROMÁN WILLIAMSON MD 08/22/16 1103: Attending MD Review Statement Attending Statement Attending MD Statement: examined this patient, discuss w/resident/PA/LEAF SORTER, agreed w/resident/PA/LEAF SORTER, reviewed EMR data (avail), discussed with nursing, discussed with case mgmt, reviewed images Attending Assessment/Plan: Pt feels well and is eager to leave. He understands that he needs to get back to his level of physical activity. His INR is now therapeutic 2 days in a row and he has overlapped with IV heparin with a therapeutic INR for 24 hours. We spoke at length about Coumadin, taught him about the effects side effects, complications and the need for close INR follow-up. He is going to get 2.5 of Coumadin today and tomorrow and get an INR checked on August 24 with the results sent to Dr. Allison's office. I also gave him a referral to Dr. Kaba who he may choose to follow-up with as Dr. Kaba said that although he likely believes the cause of this PE is stasis in the setting of recent admission for renal hematoma, the hypercoagulable workup would be done as an outpatient if indicated. We stopped the aspirin and have substituted for Coumadin for the bilateral PE as he does have this renal hematoma that is slowly healing. He will follow-up with Dr. Allison and Dr. Allison will make a decision as to whether baby aspirin as indicated if his hemoglobin stays stable and the hematoma completely resolves.
[2016-08-22 08:16] VITALS: BP 144/70
[2016-08-22] MEDS ORDERED: COUMADIN2.5 M1 PO ×2 (08:17→09:18)
--- NOTE | 2016-08-22 09:12 | PN- Hematology ---
Subjective Subjective: He denies any new symptoms today. Abdominal pain is slightly improved. He has no fever or chills. He denies any nausea or vomiting. He has no other bleeding issues. Review of Systems Constitutional: Denies: chills, fever. Cardiovascular: Denies: chest pain. Respiratory: Denies: short of breath. Gastrointestinal: Reports: abdominal pain (improving). Musculoskeletal: Denies: back pain. Neurological/Psychological: Denies: anxiety, confusion. Hematologic/Endocrine: Denies: bruising, bleeding. All Other Systems: Reviewed and Negative Objective Vital Signs and I&Os Vital Signs Date Time Temp Pulse Resp B/P Pulse O2 O2 Flow FiO2 Ox Delivery Rate 08/22 0816 98.2 83 18 144/70 95 Room Air 08/22 0000 Nasal 2.0L Cannula 08/21 2300 98.4 80 18 142/80 94 Room Air 08/21 2058 80 142/80 08/21 1554 98.7 80 20 142/86 94 Room Air 08/21 0954 91 136/80 08/21 0954 91 136/80 Intake & Output 08/22 1600 08/22 0800 08/22 0000 08/21 1600 08/21 0800 08/21 0000 Intake Total 558 958 848 438.4 690 Output Total 350 650 700 850 Balance 208 308 848 -261.6 -160 Intake, IV 208 208 208 238.4 240 Intake, Oral 350 750 640 200 450 Number 0 0 1 0 Bowel Movements Output, Urine 350 650 700 850 Patient 91.682 kg 92.306 kg Weight Physical Exam: General Appearance: alert, awake, comfortable, on 2L NC Head: atraumatic, normal appearance Respiratory: normal breath sounds, chest non-tender, no respiratory distress Cardiovascular: tachycardia, systolic murmur Gastrointestinal: normal bowel sounds, soft, tenderness to palpation diffusely Extremities: no edema, no calf tenderness Cranial Nerves: normal hearing, normal speech Skin: no rash Current Medications: Current Medications Sig/Geri Start time Last Medication Dose Route Stop Time Status Admin Acetaminophen 650 MG Q8P PRN 08/16 1630 AC PO Allopurinol 300 MG DAILY 08/17 1000 AC 08/21 PO 0955 Amlodipine Besylate 10 MG DAILY 08/17 1000 AC 08/21 PO 0954 Atorvastatin Calcium 20 MG 1700 08/16 1700 AC 08/21 PO 1754 Benzonatate 100 MG TID 08/18 1000 AC 08/21 PO 2056 Chlorthalidone 25 MG QAM 08/17 1000 AC 08/21 PO 0954 Docusate Sodium 100 MG DAILY 08/16 1603 AC 08/20 PO 913 Ezetimibe 10 MG DAILY 08/17 1000 AC 08/21 PO 0955 Ferrous Sulfate 325 MG BID 08/16 2200 AC 08/21 PO 2057 Fluticasone 2 SPRAY DAILY 08/16 1604 AC 08/21 Propionate JEF 0955 Gemfibrozil 600 MG BID 08/16 2200 AC 08/21 PO 2057 Guaifenesin 600 MG Q12 08/18 1000 AC 08/21 PO 2056 Guaifenesin 600 MG BID PRN 08/16 1615 AC PO Heparin Sodium 25,000 UNIT Q24H 08/16 1400 AC 08/21 (Porcine) IV 1753 Sodium Chloride 500 ML Hydromorphone HCl 4 MG Q6P PRN 08/16 1615 AC 08/21 PO 2056 Levothyroxine Sodium 0.137 MG DAILY AC 08/17 0700 AC 08/22 PO 607 Magnesium Chloride 64 MG ONCE ONE 08/22 07 DC PO 08/22 730 Magnesium Hydroxide 30 ML BID PRN 08/16 1615 AC PO Memantine 10 MG BID 08/17 1000 AC 08/21 PO 2056 Metoprolol Tartrate 75 MG BID 08/16 220 AC 08/21 PO 2057 Nitroglycerin 0.4 MG DAILY 08/16 1607 AC 08/21 TOP 0955 Omeprazole 40 MG DAILY AC 08/17 0700 AC 08/22 PO 0608 Polyethylene Glycol 17 GM DAILY 08/17 1000 AC 08/20 PO 913 Potassium Chloride 20 MEQ ONCE ONE 08/22 07 DC PO 08/22 0731 Prednisolone 1 GTT DAILY 08/17 1000 AC 08/21 OPH 0954 Tamsulosin HCl 0.4 MG QPM 08/16 2200 AC 08/21 PO 2057 Warfarin Sodium 2.5 MG COUMADIN 1700 ONE 08/21 1700 DC 08/21 PO 08/21 1701 1754 Results Last 24 Hours of Lab Results: Laboratory Tests 08/22 08/22 08/21 0600 0235 1421 Chemistry Sodium (137 - 145 mmol/L) 135 L Potassium (3.5 - 5.1 mmol/L) 3.8 Chloride (98 - 107 mmol/L) 98 Carbon Dioxide (22 - 30 mmol/L) 27 Anion Gap (5 - 16) 10 BUN (9 - 20 mg/dL) 15 Creatinine (0.7 - 1.2 mg/dL) 0.9 Estimated GFR (>60 ml/min) > 60 BUN/Creatinine Ratio (7 - 25 %) 16.7 Magnesium (1.6 - 2.3 mg/dL) 1.8 Coagulation PT (9.4 - 12.5 SEC) Cancelled 28.0 H INR (0.90 - 1.17) Cancelled 2.69 H APTT (25 - 37 SEC) 78 H 70 H Hematology CBC w Diff NO MAN DIFF REQ WBC (4.8 - 10.8 /CUMM) 7.4 RBC (4.70 - 6.10 /CUMM) 4.82 Hgb (14.0 - 18.0 G/DL) 13.7 L Hct (42 - 52 %) 40.8 L MCV (80.0 - 94.0 FL) 84.7 MCH (27.0 - 31.0 PG) 28.4 RDW (11.5 - 14.5 %) 16.6 H Plt Count (130 - 400 /CUMM) 294 MPV (7.4 - 10.4 FL) 7.2 L Gran % (42.2 - 75.2 %) 49.3 Lymphocytes % (20.5 - 51.1 %) 35.5 Monocytes % (1.7 - 9.3 %) 12.4 H Eosinophils % (0 - 5 %) 2.2 Basophils % (0.0 - 2.0 %) 0.6 Absolute Granulocytes (1.4 - 6.5 /CUMM) 3.7 Absolute Lymphocytes (1.2 - 3.4 /CUMM) 2.6 Absolute Monocytes (0.10 - 0.60 /CUMM) 0.9 H Absolute Eosinophils (0.0 - 0.7 /CUMM) 0.2 Absolute Basophils (0.0 - 0.2 /CUMM) 0 PUBS MCHC (33.0 - 37.0 G/DL) 33.6 Assessment/Plan Assessment/Recommendations: Mr. Soriano is a 70-year-old male with CAD s/p CABG, MV replacement with bovine valve, hypertension, DENA on nasal CPAP, and recent hospitalization for left subcapsular renal hematoma after lithotripsy who presented to the ED with chest pain. He was found to have left peroneal veins thrombosis with bilateral subsegmental pulmonary emboli. He is currently on anticoagulation with heparin drip and bridging to warfarin. He is at higher risk of bleeding given recent recent left subcapsular renal hematoma. He has been stable on anticoagulation without signs or symptoms of bleeding. He will continue with anticoagulation bridging. Recommendations: 1. Monitor closely for bleeding 2. Age appropriate malignancy screening as outpatient. 3. Continue bridging to warfarin 4. Can follow up as outpatient to discuss work up of any hypercoagulable state Please call [phone] with any questions Problem List: 1. DVT (deep venous thrombosis) 2. Pulmonary embolism 3. Acute blood loss as cause of postoperative anemia 4. Traumatic perinephric hematoma of left kidney
[2016-08-22 10:42] VITALS: BP 146/88
--- NOTE | 2016-08-22 10:52 | Discharge Summary ---
Visit Information Visit Dates Admission Date: 08/16/16 Discharge Date: 08/22/16 Hospital Course Course Attending Physician: ROMÁN WILLIAMSON MD Primary Care Physician: ALEXANDER GARCIA,[facility] Course: Mr. Soriano is a 70-year-old gentleman with a PMH significant for HTN, CAD s/p CABG, aortic stenosis, mitral valve replacement in May 2014 (bovine), HCV, nephrolithiasis, and left subcapsular renal hematoma as a complication of ESWL on aspirin (07/24/16) who presented with acute right-sided pleuritic chest pain with a CTA showing bilateral pulmonary embolism with no evidence of right heart strain. The patient was admitted to telemetery unit where the following problems were addressed and managed: # Bilateral Pulmonary embolism CTA on admission revealed multiple scattered subsegmental pulmonary emboli without evidence of right heart strain or pulmonary infarction. Venous doppler of the LE was positive for DVT in one of the peroneal veins in the left calf. Cardiology and hematology were consulted. Upon clearance by nephrology, patient was placed on IV heparin bridged to Coumadin. IVC filter placement was recommended by cardiology in the setting of previous renal subcapsular hematoma but it was deemed unnecessary by hematology at this point. The patient was kept on IV heparin for a total of 6 days with an overlap with Coumadin for 24 additional hours after he reached a therapeutic range. Patient remained HDS during the hospitalization. Patient was discharged on Coumadin 2.5mg daily with an instruction to have INR checked on Saturday the . Patient was taken off home med aspirin 325mg QD. He was instructed to follow up with a director wholesale Dr. Rahman regularly afterwards. Patient was also given a referral to follow up with a human resources benefits assistant Dr. Kaba and pump oiler Dr. Lemon. # Other chronic medical conditions: HTN, HLD, BPH, gout Patient was kept on home meds levothyroxine, chlorthalidone, tamsulosin, Lipitor , metoprolol, amlodipine, allopurinol. Allergies: Coded Allergies: NO KNOWN ALLERGIES (07/24/16) Disposition Summary Disposition Principal Diagnosis: Pulmonary embolism Additional Diagnosis: DVT Discharge Disposition: home health services Discharge Instructions General Discharge Information Code Status: Full Code Patient's Diet: Heart healthy Patient's Activity: As tolerated Follow-Up Instructions/Appts: Please follow up with Dr. Baker (primary care), Dr. Rahman (director wholesale) and Dr. Lemon (pulmonlogist) within 1 week following discharge. Please have your home nurse to check your INR on Saturday (August 24) and send the results to Dr. Rahman. Please follow up with Dr. Rahman to check INR regularly afterwards. Medications at Discharge Discharge Medications: Stop taking the following medications: Aspirin (Aspirin*) 325 MG TABLET ORAL DAILY Continue taking these medications: Docusate Sodium (Colace) 100 MG CAPSULE 1 Capsule ORAL DAILY Comments: Last Taken: 08/22/16 Time: 10:00 AM Prednisolone Acetate (Omnipred) 1 % DROPS.SUSP 1 Drop In the eye DAILY Comments: Last Taken: 08/22/16 Time: 10:43 AM Lactose-Reduced Food (Ensure Liquid) 237 ML LIQUID 1 Can ORAL DAILY as needed for NUTRITIONAL SUPPLEMENT Comments: NOT GIVEN IN HOSPITAL Allopurinol (Allopurinol) 300 MG TABLET 300 Milligram ORAL Every Day Comments: Last Taken: 08/22/16 Time: 10:40 AM Levothyroxine Sodium (Levothyroxine Sodium) 137 MCG TABLET 137 Microgram ORAL Every Morning Comments: Last Taken: 08/22/16 Time: 6:00 AM Omeprazole (Omeprazole) 40 MG CAPSULE.DR 40 Milligram ORAL Every Day Comments: Last Taken: 08/22/16 Time: 6:00 AM Ezetimibe (Zetia) 10 MG TABLET 10 Milligram ORAL Every Day Comments: Last Taken: 08/22/16 Time: 10:42 AM Chlorthalidone (Chlorthalidone) 25 MG TABLET 25 Milligram ORAL Every Morning Comments: Last Taken: 08/21/16 Time: 10 AM Tamsulosin HCl (Flomax) 0.4 MG CAP.ER.24H 0.4 Milligram ORAL Every night Comments: Last Taken: 08/21/16 Time: 8:30 PM Amlodipine Besylate (Norvasc) 10 MG TABLET 10 Milligram ORAL HTN Instructions: Reason to Stop at ADM: BP within control, will restart if it goes >120-130 Comments: Last Taken: 08/22/16 Time: 1042 AM Rosuvastatin Calcium (Crestor) 20 MG TABLET 20 Milligram ORAL Every Day Comments: NOT GIVEN IN HOSPITAL Ferrous Sulfate (Ferrous Sulfate) 325 MG (65 MG IRON) TABLET 325 Milligram ORAL TWICE DAILY Comments: Last Taken: 08/22/16 Time: 10:42 AM Alprostadil (Caverject) 20 MCG KIT 20 Microgram Route NEEDED as needed for ERECTILE DYSFUNCTION Instructions: INTRACAVERNOSAL Comments: NOT GIVEN IN HOSPITAL Fluticasone Propionate (Fluticasone Propionate) 50 MCG/ACTUATION SPRAY.SUSP 2 [place] Both sides of nose DAILY Comments: Last Taken: 08/22/16 Time: 1043 AM Sildenafil Citrate (Viagra) 100 MG TABLET 1 Tablet ORAL DAILY NEEDED Instructions: 1 hour before sexual activity Comments: NOT GIVEN IN HOSPITAL Memantine HCl (Namenda XR) 28 MG CAP.SPR.24 1 Capsule ORAL DAILY Comments: Last Taken: 08/22/16 Time: 10:40 AM Polyethylene Glycol 3350 (Miralax) 17 GRAM POWD.PACK 1 Packet ORAL DAILY as needed for CONSTIPATION Qty = 2 Instructions: dissolve in water Comments: Last Taken: 08/22/16 Time: 10:42 AM Magnesium Hydroxide (Milk Of Magnesia) 400 MG/5 ML ORAL.SUSP 5 Milliliters ORAL TWICE DAILY as needed for CONSTIPATION Qty = 70 Comments: NOT GIVEN IN HOSPITAL Hydromorphone HCl (Dilaudid) 4 MG TABLET 1 Tablet ORAL 4 times daily as needed as needed for Severe pain 7-10 Qty = 12 Comments: Last Taken: 08/21/16 Time: 9 PM Gemfibrozil (Lopid) 600 MG TABLET 600 Milligram ORAL TWICE DAILY Qty = 60 Comments: Last Taken: 08/22/16 Time: 10:42 AM Nitroglycerin (Nitroglycerin Patch) 0.4 MG/HOUR PATCH.TD24 0.4 Milligram On the skin DAILY Qty = 30 Comments: Last Taken: 08/22/16 Time: 10:40 AM Metoprolol Succinate (Metoprolol Succinate) 25 MG TAB 75 Milligram ORAL TWICE DAILY Qty = 120 Comments: Last Taken: 08/22/16 Time: 10:40 AM Guaifenesin (Mucinex) 600 MG TAB.ER.12H 1 Tablet ORAL TWICE DAILY as needed for Congestion Qty = 20 Comments: Last Taken: 08/22/16 Time: 1040 AM AM Start taking the following new medications: Warfarin Sodium (Coumadin) 2.5 MG TABLET 2.5 Milligram ORAL COUMADIN AT 5PM Days = 30 No Refills Instructions: PLEASE HAVE THE HOME NURSE CHECK YOUR INR AND SEND THE RESULTS TO DR. RAHMAN. Comments: Last Taken: 08/21/13 Time: 6 PM Copies To: Tressa LEMON MD; ALEXANDER GARCIA,ABDULLAHI; JOE GACRIA,CECILE; JOSIAH GARCIA PhD, [facility]ITAL[facility]osa
== END 2016-08-22 13:20 | disposition home health service (06) | DRG 176 ==
LOC: ENRESERVDT → ENRESERVTM → ERH 10:30 → ENPENDDIS 13:20 → 1NO 13:20 → ERHI 13:20 → 1NO 13:20
PROVIDERS: Internal Medicine; Internal Medicine Interventional Cardiology; Physician Assistant; Student in an Organized Health Care Education/Training Program; ADMIT Internal Medicine
PROC: 5A09357 Assistance with Respiratory Ventilation, Less than 24 Consecutive Hours, Continuous Positive Airway Pressure (ICD-10-PCS; principal; 2016-08-16)
DX: I26.99 Other pulmonary embolism without acute cor pulmonale (principal); N99.840 Postprocedural hematoma of a genitourinary system organ or structure following a genitourinary system procedure; I82.4Z2 Acute embolism and thrombosis of unspecified deep veins of left distal lower extremity; I10 Essential (primary) hypertension; K21.9 Gastro-esophageal reflux disease without esophagitis; E78.5 Hyperlipidemia, unspecified; I25.10 Atherosclerotic heart disease of native coronary artery without angina pectoris; I25.2 Old myocardial infarction; I73.9 Peripheral vascular disease, unspecified; Z95.3 Presence of xenogenic heart valve; B18.2 Chronic viral hepatitis C; E11.9 Type 2 diabetes mellitus without complications; E03.9 Hypothyroidism, unspecified; Z95.1 Presence of aortocoronary bypass graft; G47.33 Obstructive sleep apnea (adult) (pediatric); Y83.8 Other surgical procedures as the cause of abnormal reaction of the patient, or of later complication, without mention of misadventure at the time of the procedure; E87.6 Hypokalemia; I35.0 Nonrheumatic aortic (valve) stenosis; N40.0 Benign prostatic hyperplasia without lower urinary tract symptoms; M10.9 Gout, unspecified
CPT/HCPCS: 1NP; 36415; 74174; 82436; 85306; 93005; 93010; 93306; 93970; 96374; 97116-GO; 97162-GP; 97530-GO; J1170; J1644

== ENCOUNTER 2016-10-16 14:32 | Inpatient (IN) | payer OTHER ==
[~2016-10-16] VITALS: Ht 172.7 cm; Wt 90.7 kg
[~2016-10-16 14:32] MED LIST changes: +COUMADIN2.5 M1 PO
--- NOTE | 2016-10-16 14:54 | ED GENERAL ADULT ---
See Addendum History of Present Illness General Chief Complaint: General Adult Stated Complaint: PT WAS SENT BY HIS DR MUNOZ FOR TEST Source: patient Exam Limitations: no limitations Vital Signs & Intake/Output Vital Signs & Intake/Output Vital Signs Date Time Temp Pulse Resp B/P B/P Pulse O2 O2 Flow FiO2 Mean Ox Delivery Rate 10/16 1731 68 18 145/74 95 Room Air 10/16 1545 72 18 136/76 97 Room Air 10/16 1442 97.9 70 18 147/91 95 Room Air Allergies Coded Allergies: NO KNOWN ALLERGIES (07/24/16) Reconcile Medications Allopurinol 300 MG TABLET 300 MG PO D GOUT (Reported) Alprostadil (Caverject) 20 MCG KIT 20 MCG .ROUTE NEEDED PRN ERECTILE DYSFUNCTION (Reported) INTRACAVERNOSAL Amlodipine Besylate (Norvasc) 10 MG TABLET 10 MG PO HTN HTN (Reported) Reason to Stop at ADM: BP within control, will restart if it goes >120-130 Aspirin (Ecotrin*) 81 MG TABLET.DR 1 TAB PO DAILY HEART/BLOOD (Reported) Chlorthalidone 25 MG TABLET 25 MG PO QAM CARDIAC (Reported) Docusate Sodium (Colace) 100 MG CAPSULE 1 CAP PO DAILY STOOL SOFTENER ( Reported) Ezetimibe (Zetia) 10 MG TABLET 10 MG PO D CHOLESTEROL (Reported) Ferrous Sulfate 325 MG (65 MG IRON) TABLET 325 MG PO BID ANEMIA (Reported) Fluticasone Propionate 50 MCG/ACTUATION SPRAY.SUSP 2 SPRAY NASB DAILY BREATHING (Reported) Gemfibrozil (Lopid) 600 MG TABLET 600 MG PO BID Cholesterol Lactose-Reduced Food (Ensure Liquid) 237 ML LIQUID 1 CAN PO DAILY PRN NUTRITIONAL SUPPLEMENT (Reported) Levothyroxine Sodium 137 MCG TABLET 137 MCG PO QAM HYPOTHYROIDISM (Reported) Magnesium Hydroxide (Milk Of Magnesia) 400 MG/5 ML ORAL.SUSP 5 ML PO BID PRN CONSTIPATION Memantine HCl (Namenda XR) 28 MG CAP.SPR.24 1 CAP PO DAILY MEMORY (Reported) Metoprolol Succinate 25 MG TAB 75 MG PO BID HYPERTENSION Nitroglycerin (Nitroglycerin Patch) 0.4 MG/HOUR PATCH.TD24 0.4 MG TOP DAILY Chest pain Omeprazole 40 MG CAPSULE.DR 40 MG PO D GERD (Reported) Prednisolone Acetate (Omnipred) 1 % DROPS.SUSP 1 GTT OPH DAILY EYE(S) ( Reported) Rosuvastatin Calcium (Crestor) 20 MG TABLET 20 MG PO D CHOLESTEROL (Reported) Sildenafil Citrate (Viagra) 100 MG TABLET 1 TAB PO DAILY NEEDED ERECTILE DYSFUNCTION (Reported) 1 hour before sexual activity Tamsulosin HCl (Flomax) 0.4 MG CAP.ER.24H 0.4 MG PO QPM BPH (Reported) Warfarin Sodium 5 MG TABLET 1 TAB PO AD BLOOD THINNER (Reported) Warfarin Sodium (Coumadin) 2.5 MG TABLET 1 TAB PO QTUES BLOOD THINNER ( Reported) Triage Note: C/O UPPER ABDOMINAL AND CHEST PAIN SINCE YESTERDAY. STATES HE WAS HOSPITALIZED 2 MONTHS AGO FOR SAME, HAD LITHOTRIPSY WITH COMPLICATIONS. (AR, BLEEDING). SENT BY DR. MUNOZ TODAY FOR ELEVATED LIVER ENZYMES DONE 2 DAYS AGO. Triage Nurses Notes Reviewed? yes Onset: Abrupt Duration: day(s): Timing: recent history HPI: 10/16/16 71-year-old man who presents to the emergency department for severe epigastric and substernal chest pain that's been intermittent and ongoing for the past 24 hours, he has a past medical history of coronary artery disease, status post coronary artery bypass, also status post recent lithotripsy. He developed a left subscapular hematoma. He was seen by his primary care doctor today and referred to the emergency department for ongoing severe pain and elevated liver enzymes. 12-lead EKG reveals normal sinus rhythm at 61 bpm. There is T wave inversions in V3 to V5. This is essentially unchanged from the old tracing. He was seen and evaluated by his rough planer tender Dr. Allison in the ED and troponin is pending. Past History Travel History Traveled to [place] past 21 day No Medical History Any Pertinent Medical History? 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 History of MRSA: No History of VRE: No History of CDIFF: No Influenza Vaccine: 02/09/16 Surgical History Surgical History: cholecystectomy, cataract removal, lithotripsy heart valve replacement hernia repair x2 CARDIAC STENTS x2 OLENA FEM POP BYPASS right carotid endarterectomy AVR with two bypass grafts right knee surgery Psychosocial History Who do you live with Patient/Self Services at Home Nursing What is your primary language Luxembourgish Tobacco Use: Never used ETOH Use: denies use Family History Family History, If Any: Relation not specified for: Breast cancer in female Hx Contributory? No Review of Systems Review of Systems Constitutional: Denies: fever. EENTM: Reports: no symptoms. Respiratory: Denies: short of breath. Cardiovascular: Reports: chest pain. GI: Reports: abdominal pain, vomiting. Genitourinary: Reports: no symptoms. Musculoskeletal: Reports: no symptoms. Skin: Reports: no symptoms. Neurological/Psychological: Reports: no symptoms. Hematologic/Endocrine: Reports: no symptoms. Physical Exam Physical Exam General Appearance: alert, awake, anxious, moderate distress Head: atraumatic, normal appearance Eyes: Bilateral: normal appearance, PERRL, EOMI. Ears, Nose, Throat: normal pharynx, normal ENT inspection, hearing grossly normal Neck: normal inspection, supple Respiratory: normal breath sounds, chest non-tender, no respiratory distress Cardiovascular: regular rate/rhythm Peripheral Pulses: 4+ radial (R), 4+ radial (L) Gastrointestinal: soft, tenderness, epigastric Back: decreased range of motion Extremities: pedal edema Neurologic/Psych: no motor/sensory deficits, awake, alert, oriented x 3 Skin: intact, normal color, warm/dry Core Measures ACS in differential dx? No CVA/TIA Diagnosis: No Severe Sepsis Present: No Septic Shock Present: No Progress Differential Diagnoses I considered the following diagnoses in my evaluation of the patient: [ Choledocholithiasis, acute coronary syndrome, aortic dissection, renal colic] Plan of Care: Orders Procedure Date/time Status Nothing by Mouth 10/[address] in observation 10/17 1923 Active Patient Data 10/[address] in observation 10/16 1902 Active ED Holding Orders 10/16 1902 Active Code Status 10/16 190 Active TROPONIN LEVEL 10/16 1807 Complete EKG 10/16 180 Active Intake & Output 10/16 1509 Active TROPONIN LEVEL 10/16 1455 Complete COMPREHENSIVE METABOLIC PANEL 10/16 1455 Complete CBC WITHOUT DIFFERENTIAL 10/16 145 Complete EKG 10/16 1444 Active Current Medications Sig/Geri Start time Last Medication Dose Stop Time Status Admin Sodium Chloride 1,000 ML ONCE ONE 10/16 1545 AC 10/16 (Normal Saline 0.9%) 10/17 0504 1546 Laboratory Tests 10/16/16 1841: Troponin I < 0.01 10/16/16 1457: Anion Gap 10, Estimated GFR > 60, BUN/Creatinine Ratio 25.7 H, Glucose 101 H, Calcium 9.5, Total Bilirubin 0.8, AST 174 H, ALT 408 H, Alkaline Phosphatase 347 H, Troponin I 0.01, Total Protein 7.1, Albumin 4.0, Globulin 3.1, Albumin/ Globulin Ratio 1.3, CBC w Diff NO MAN DIFF REQ, RBC 5.95, MCV 83.3, MCH 27.7, RDW 15.8 H, MPV 7.2 L, Gran % 65.9, Lymphocytes % 22.9, Monocytes % 9.1, Eosinophils % 1.4, Basophils % 0.7, Absolute Granulocytes 5.9, Absolute Lymphocytes 2.0, Absolute Monocytes 0.8 H, Absolute Eosinophils 0.1, Absolute Basophils 0.1, PUBS MCHC 33.3 Initial ED EKG: NSR, nonspecific ST T wave chg Prior EKG: unchanged Repeat EKG: unchanged Departure Departure Disposition: STILL A PATIENT Condition: Stable Clinical Impression Primary Impression: Choledocholithiasis Secondary Impressions: Abdominal pain, Chest pain Referrals: ABDULLAHI MUNOZ MD (PCP/Family) Departure Forms: Customer Survey General Discharge Information Comments CTA was negative for dissection but did show choledocholithiasis PATIENT: TANYA VILLALTA PRESENT AGE: 71 PATIENT ACCOUNT NO: [id number] : 46 LOCATION: [facility] ORDERING PHYSICIAN: BOB DELGADO DO SERVICE DATE: 10/16/16 EXAM TYPE: CAT - CT ABD & PELVIS ANGIOGRAM; CTA CHEST-AORTIC DISSECTION EXAMINATION: CT ANGIOGRAM ABDOMEN AND PELVIS CLINICAL INFORMATION: Chest pain. Severe tearing. COMPARISON: 08/16/2016 TECHNIQUE: Multidetector volumetric imaging was obtained through the chest, abdomen, and pelvis before and after the administration of 125 mL of Optiray 320 intravenous contrast. Images were evaluated on independent dedicated 3-D workstation and 3-D images were reconstructed with concurrent radiologist supervision and subsequently interpreted. DLP: 1459 mGy-cm FINDINGS: VASCULAR: Pulmonary arteries: Previously seen subcentimeter pulmonary emboli are not identified on the current study and have largely resolved. HEART: prosthesis is noted. Calcific atherosclerosis is present in the coronary arteries. Patient is status post CABG. Ascending thoracic aorta: No evidence of aneurysm, dissection or stenosis. Thoracic aortic arch: Two-vessel aortic arch. Atherosclerosis of the arch without evidence of aneurysm, stenosis, or dissection. Atherosclerotic disease of the branch vessels without evidence of stenosis. Greatest dimension is 3.8 cm transversely, within normal limits. Descending thoracic aorta: Calcific and fibrofatty atherosclerotic disease without evidence of aneurysm, intramural hematoma, dissection or stenosis. Mesenteric arteries: Atherosclerotic disease is present at the origin of the mesenteric arteries with mild stenosis at the origins of the celiac axis and inferior mesenteric artery, unchanged. Renal arteries: Single patent right renal artery. 2 left renal arteries are patent. Abdominal aorta: Calcific and fibrofatty atherosclerotic disease of the abdominal aorta is most pronounced in the infrarenal abdominal aorta with no significant change in caliber, measuring up to 2.3 cm in greatest diameter. Right iliofemoral system: Moderate atherosclerotic disease. No evidence of aneurysm, dissection or stenosis Left iliofemoral system: Moderate atherosclerotic disease. Moderate stenosis at the origin of the left internal iliac artery is unchanged. No evidence of aneurysm or dissection. NONVASCULAR: -CHEST- LUNG: Mild bibasilar atelectasis. No consolidation significant pulmonary nodularity. MEDIASTINUM: No thyroid gland is unremarkable. Postoperative changes of prior CABG are evident. Hilar or mediastinal lymphadenopathy. PERICARDIUM/PLEURA: No significant effusion. No pleural mass or thickening. CHEST WALL/AXILLA: Postsurgical changes of prior CABG are evident. No acute findings. No axillary adenopathy. -ABDOMEN/PELVIS- LIVER, GALLBLADDER, BILIARY TREE: The liver is normal in size, shape, and attenuation. No focal hepatic lesion or biliary ductal dilatation is present. Gallbladder is surgically absent. A 4 mm stone is present within the common bile duct. No biliary ductal dilatation. PANCREAS: Normal SPLEEN: Heterogeneous enhancement of the spleen is related to the phase of enhancement. No suspicious features. ADRENAL GLANDS: Unremarkable. KIDNEYS AND URETERS: Again seen is a large 6.9 cm simple cyst at the medial aspect of the right renal cortex. The previously seen subcapsular hematoma at the left kidney is decreased in size from prior and more subacute to chronic in appearance with decreased internal density. This now measures 9.6 x 5.7 x 4.6 cm as compared to a 1.4 x 9.3 x 17.4 cm previously. Mass effect upon the left kidney is decreased as part to prior. Multiple left renal cysts are again noted. Contrast material is present within the renal collecting systems. No nephrolithiasis or hydronephrosis identified. BLADDER: Small amount of contrast is present within the bladder. Bladder is otherwise unremarkable. GASTROINTESTINAL TRACT: Stomach, small bowel, and colon are normal in caliber. No bowel wall thickening. As seen on image 80/131 of series 7, there is focal inflammation with central fat density at the anterior margin of the descending colon, likely due to a torsed epiploic appendage (epiploic appendagitis). No discrete no free fluid or free air. ABDOMINAL WALL: Small fat-containing left inguinal hernia. LYMPH NODES: No lymphadenopathy. . PELVIC VISCERA: Prostate gland is remains enlarged, measuring 5.5 cm transverse. OSSEUS STRUCTURES: There is moderate to severe multilevel degenerative disc disease in the lumbar spine and more moderate degenerative disc disease in the thoracic spine. Scoliotic curvature is present in the thoracolumbar spine with left convexity in the lumbar spine. There is mild to moderate degenerative arthritis in the hips and SI joints. No acute osseous abnormalities are identified. IMPRESSION: 1. No evidence of aortic dissection. No acute vascular abnormalities are identified in the chest, abdomen, and pelvis. Atherosclerotic disease is detailed above. 2. Expected evolutionary changes and decrease in size of the subcapsular hematoma at the left kidney. 3. Inflamed, torsed epiploic appendage at the anterior margin of the descending colon (epiploic appendagitis). This may be symptomatic. 4. Choledocholithiasis. No biliary ductal dilatation. 5. Prostatomegaly. DICTATED BY: CALLY CRUZ MD DATE/TIME DICTATED:10/16/161613 JUMP[employer]STING [employer]VAS BASTER:REECE DATE/TIME TRANSCRIBED:10/16/161613 CONFIDENTIAL, DO NOT COPY WITHOUT APPROPRIATE AUTHORIZATION. <Electronically signed in Other Vendor System> SIGNED BY: CALLY CRUZ MD 10/16/16 6466 Observation Note Spoke With: [facility] Physician Advisor Notified: BOB DELGADO DO Place Patient In: Non-ED OBS Care Area Rationale for Observation: My rational for observation is as follows [the patient is having ongoing epigastric abdominal pain. CT shows common bile duct stone. He has elevated transaminases. He is being placed in observation for GI consultation, repeat liver enzymes and bilirubin, MRCP in the a.m. Critical Care Note Critical Care Note Critical Care Time: non-applicable
[2016-10-16 15:05] LABS: ABSOLUTE BASOPHIL COUNT 0.1 /CUMM (0.0-0.2); ABSOLUTE EOSINOPHIL COUNT 0.1 /CUMM (0.0-0.7); ABSOLUTE GRANULOCYTE CT 5.9 /CUMM (1.4-6.5); ABSOLUTE MONOCYTE COUNT 0.8 /CUMM (0.10-0.60); BASOPHIL % 0.7 % (0.0-2.0); EOSINOPHIL % 1.4 % (0-5); GRANULOCYTE % 65.9 % (42.2-75.2); HEMATOCRIT 49.6 % (42-52); MEAN CORPUSCULAR HGB 27.7 PG (27.0-31.0); MEAN CORPUSCULAR HGB CONC 33.3 G/DL (33.0-37.0); MEAN CORPUSCULAR VOLUME 83.3 FL (80.0-94.0); MEAN PLATELET VOLUME 7.2 FL (7.4-10.4); PLATELET COUNT 225 /CUMM (130-400); RBC DISTRIBUTION WIDTH 15.8 % (11.5-14.5); RED BLOOD CELL CT 5.95 /CUMM (4.70-6.10); WHITE BLOOD CELL COUNT 8.9 /CUMM (4.8-10.8)
[2016-10-16] MEDS ORDERED: COUMADIN2.5 M1 PO (15:48)
[2016-10-16] MEDS ORDERED: WARFARIN SODIUM5 M1 PO (15:48)
[2016-10-16] MEDS ORDERED: ASPIRIN EC81 M1 PO (15:50)
--- NOTE | 2016-10-16 16:45 | CT SCAN REPORT ---
EXAMINATION: CT ANGIOGRAM ABDOMEN AND PELVIS CLINICAL INFORMATION: Chest pain. Severe tearing. COMPARISON: 08/16/2016 TECHNIQUE: Multidetector volumetric imaging was obtained through the chest, abdomen, and pelvis before and after the administration of 125 mL of Optiray 320 intravenous contrast. Images were evaluated on independent dedicated 3-D workstation and 3-D images were reconstructed with concurrent radiologist supervision and subsequently interpreted. DLP: 1459 mGy-cm FINDINGS: VASCULAR: Pulmonary arteries: Previously seen subcentimeter pulmonary emboli are not identified on the current study and have largely resolved. HEART: prosthesis is noted. Calcific atherosclerosis is present in the coronary arteries. Patient is status post CABG. Ascending thoracic aorta: No evidence of aneurysm, dissection or stenosis. Thoracic aortic arch: Two-vessel aortic arch. Atherosclerosis of the arch without evidence of aneurysm, stenosis, or dissection. Atherosclerotic disease of the branch vessels without evidence of stenosis. Greatest dimension is 3.8 cm transversely, within normal limits. Descending thoracic aorta: Calcific and fibrofatty atherosclerotic disease without evidence of aneurysm, intramural hematoma, dissection or stenosis. Mesenteric arteries: Atherosclerotic disease is present at the origin of the mesenteric arteries with mild stenosis at the origins of the celiac axis and inferior mesenteric artery, unchanged. Renal arteries: Single patent right renal artery. 2 left renal arteries are patent. Abdominal aorta: Calcific and fibrofatty atherosclerotic disease of the abdominal aorta is most pronounced in the infrarenal abdominal aorta with no significant change in caliber, measuring up to 2.3 cm in greatest diameter. Right iliofemoral system: Moderate atherosclerotic disease. No evidence of aneurysm, dissection or stenosis Left iliofemoral system: Moderate atherosclerotic disease. Moderate stenosis at the origin of the left internal iliac artery is unchanged. No evidence of aneurysm or dissection. NONVASCULAR: -CHEST- LUNG: Mild bibasilar atelectasis. No consolidation significant pulmonary nodularity. MEDIASTINUM: No thyroid gland is unremarkable. Postoperative changes of prior CABG are evident. Hilar or mediastinal lymphadenopathy. PERICARDIUM/PLEURA: No significant effusion. No pleural mass or thickening. CHEST WALL/AXILLA: Postsurgical changes of prior CABG are evident. No acute findings. No axillary adenopathy. -ABDOMEN/PELVIS- LIVER, GALLBLADDER, BILIARY TREE: The liver is normal in size, shape, and attenuation. No focal hepatic lesion or biliary ductal dilatation is present. Gallbladder is surgically absent. A 4 mm stone is present within the common bile duct. No biliary ductal dilatation. PANCREAS: Normal SPLEEN: Heterogeneous enhancement of the spleen is related to the phase of enhancement. No suspicious features. ADRENAL GLANDS: Unremarkable. KIDNEYS AND URETERS: Again seen is a large 6.9 cm simple cyst at the medial aspect of the right renal cortex. The previously seen subcapsular hematoma at the left kidney is decreased in size from prior and more subacute to chronic in appearance with decreased internal density. This now measures 9.6 x 5.7 x 4.6 cm as compared to a 1.4 x 9.3 x 17.4 cm previously. Mass effect upon the left kidney is decreased as part to prior. Multiple left renal cysts are again noted. Contrast material is present within the renal collecting systems. No nephrolithiasis or hydronephrosis identified. BLADDER: Small amount of contrast is present within the bladder. Bladder is otherwise unremarkable. GASTROINTESTINAL TRACT: Stomach, small bowel, and colon are normal in caliber. No bowel wall thickening. As seen on image 80/131 of series 7, there is focal inflammation with central fat density at the anterior margin of the descending colon, likely due to a torsed epiploic appendage (epiploic appendagitis). No discrete no free fluid or free air. ABDOMINAL WALL: Small fat-containing left inguinal hernia. LYMPH NODES: No lymphadenopathy. . PELVIC VISCERA: Prostate gland is remains enlarged, measuring 5.5 cm transverse. OSSEUS STRUCTURES: There is moderate to severe multilevel degenerative disc disease in the lumbar spine and more moderate degenerative disc disease in the thoracic spine. Scoliotic curvature is present in the thoracolumbar spine with left convexity in the lumbar spine. There is mild to moderate degenerative arthritis in the hips and SI joints. No acute osseous abnormalities are identified. IMPRESSION: 1. No evidence of aortic dissection. No acute vascular abnormalities are identified in the chest, abdomen, and pelvis. Atherosclerotic disease is detailed above. 2. Expected evolutionary changes and decrease in size of the subcapsular hematoma at the left kidney. 3. Inflamed, torsed epiploic appendage at the anterior margin of the descending colon (epiploic appendagitis). This may be symptomatic. 4. Choledocholithiasis. No biliary ductal dilatation. 5. Prostatomegaly.
--- NOTE | 2016-10-16 20:53 | History & Physical ---
DONTAE GARCIA,[facility] – [place] 10/16/162051: General Information and HPI MD Statement: I have seen and personally examined TANYA VILLALTA and documented this H&P. The patient is a 71 year old M who presented with a patient stated chief complaint of epigastric pain. Source of Information: patient Exam Limitations: poor historian History of Present Illness: Mr. Villalta is a 71 y/o M with PMHx of CAD s/p CABG, acute gallstone pancreatitis s/p cholecystectomy and bilateral subsegmental PE who is sent in from his primary care physician's office for further evaluation of elevated LFTs and epigastric pain. Patient reports that for the past three months leading up to current presentation he has been having intermittent episodes of abdominal pain, starting from his left flank and radiating to his epigastrium. For the past two days, pain has gotten more severe to the point that he is unable to stand. Patient states that the pain is "between dull and sharp" in quality and is exacerbated by activity. Currently it is 7 out of 10. He denies associated nausea, vomiting, jaundice, bladder or bowel symptoms. Following an episode of acute gallstone pancreatitis in January 2015, patient underwent open cholecystectomy as he reportedly developed bleeding during the laparoscopic procedure. Of note, patient was hospitalized on 07/24/16 with a left renal subcapsular hematoma with extension to the retroperitoneum after ESWL procedure. On 08/16/16 patient was found to have bilateral PE and LLE DVT and was subsequently started on warfarin. Patient has been having recurrent "fainting spells" especially while he is driving. During these episodes, he experiences dizziness and blurry vision and feels like he is going to pass out. He pulls over to the side of the road when these episodes occur and yells and screams to wake himself up. He denies palpitations or diaphoresis during these episodes. Of note, he was seen by his retail gift card merchandising Dr. Allison about a week ago who performed a stress test but he does not know the results. Allergies/Medications Allergies: Coded Allergies: NO KNOWN ALLERGIES (07/24/16) Home Med list Allopurinol 300 MG TABLET 300 MG PO D GOUT (Reported) Alprostadil (Caverject) 20 MCG KIT 20 MCG .ROUTE NEEDED PRN ERECTILE DYSFUNCTION (Reported) INTRACAVERNOSAL Amlodipine Besylate (Norvasc) 10 MG TABLET 10 MG PO HTN HTN (Reported) Reason to Stop at ADM: BP within control, will restart if it goes >120-130 Aspirin (Ecotrin*) 81 MG TABLET.DR 1 TAB PO DAILY HEART/BLOOD (Reported) Chlorthalidone 25 MG TABLET 25 MG PO QAM CARDIAC (Reported) Docusate Sodium (Colace) 100 MG CAPSULE 1 CAP PO DAILY STOOL SOFTENER ( Reported) Ezetimibe (Zetia) 10 MG TABLET 10 MG PO D CHOLESTEROL (Reported) Ferrous Sulfate 325 MG (65 MG IRON) TABLET 325 MG PO BID ANEMIA (Reported) Fluticasone Propionate 50 MCG/ACTUATION SPRAY.SUSP 2 SPRAY NASB DAILY BREATHING (Reported) Gemfibrozil (Lopid) 600 MG TABLET 600 MG PO BID Cholesterol Lactose-Reduced Food (Ensure Liquid) 237 ML LIQUID 1 CAN PO DAILY PRN NUTRITIONAL SUPPLEMENT (Reported) Levothyroxine Sodium 137 MCG TABLET 137 MCG PO QAM HYPOTHYROIDISM (Reported) Magnesium Hydroxide (Milk Of Magnesia) 400 MG/5 ML ORAL.SUSP 5 ML PO BID PRN CONSTIPATION Memantine HCl (Namenda XR) 28 MG CAP.SPR.24 1 CAP PO DAILY MEMORY (Reported) Metoprolol Succinate 25 MG TAB 75 MG PO BID HYPERTENSION Nitroglycerin (Nitroglycerin Patch) 0.4 MG/HOUR PATCH.TD24 0.4 MG TOP DAILY Chest pain Omeprazole 40 MG CAPSULE.DR 40 MG PO D GERD (Reported) Prednisolone Acetate (Omnipred) 1 % DROPS.SUSP 1 GTT OPH DAILY EYE(S) ( Reported) Rosuvastatin Calcium (Crestor) 20 MG TABLET 20 MG PO D CHOLESTEROL (Reported) Sildenafil Citrate (Viagra) 100 MG TABLET 1 TAB PO DAILY NEEDED ERECTILE DYSFUNCTION (Reported) 1 hour before sexual activity Tamsulosin HCl (Flomax) 0.4 MG CAP.ER.24H 0.4 MG PO QPM BPH (Reported) Warfarin Sodium 5 MG TABLET 1 TAB PO AD BLOOD THINNER (Reported) Warfarin Sodium (Coumadin) 2.5 MG TABLET 1 TAB PO QTUES BLOOD THINNER ( Reported) Past History Travel History Traveled to [place] past 21 day No Medical History Neurological: CVA EENT: NONE Cardiovascular: aortic stenosis, CAD, hypertension, hyperlipidemia, myocardial infarction, NSTEMI, PVD, syncope, bioprosthetic aortic valve replacement with 2 bypass grafts post-op atrial fibrillation Respiratory: obstructive sleep apnea Gastrointestinal: GERD, incisional hernia, inguinal hernia Hepatic: hepatitis C Renal: nephrolithiasis, urinary incontinence, left renal subcapsular hematoma Musculoskeletal: gout, osteoarthritis Psychiatric: NONE Endocrine: diabetes, hypothyroidism Blood Disorders: DVT, PE Cancer(s): NONE 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 MOTHER, , Age 60+; Cause: due to natural causes. SISTER, , Age 40-50; Cause: Breast cancer. FH: breast cancer Relation not specified for: No family history of cardiac disease Psychosocial History Where do you live? Home Services at Home: Nursing Smoking Status: Never Smoked ETOH Use: denies use Illicit Drug Use: denies illicit drug use Functional Ability ADLs Independent: dressing, eating, toileting, bathing. Ambulation: independent IADLs Independent: shopping, housework, finances, food prep, telephone, transportation , medication admin. 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 EENTM: Reports: no symptoms. Cardiovascular: Reports: no symptoms. Respiratory: Denies: short of breath. GI: Reports: abdominal pain. Denies: diarrhea, nausea, bloody stool, changes in stool, vomiting. Genitourinary: Reports: no symptoms. Musculoskeletal: Reports: no symptoms. Skin: Reports: no symptoms. Neurological/Psychological: Reports: no symptoms. Hematologic/Endocrine: Reports: no symptoms. Immunologic/Allergic: Reports: no symptoms. All Other Systems: Reviewed and Negative Exam & Diagnostic Data Last 24 Hrs of Vital Signs/I&O Vital Signs Date Time Temp Pulse Resp B/P B/P Pulse O2 O2 Flow FiO2 Mean Ox Delivery Rate 10/16 2201 98.2 62 18 139/74 95 Room Air 10/16 1731 68 18 145/74 95 Room Air 10/16 1545 72 18 136/76 97 Room Air 10/16 1442 97.9 70 18 147/91 95 Room Air Intake & Output 10/16 1600 10/16 0800 10/16 0000 Intake Total Output Total Balance Patient 90.718 kg Weight Weight Reported by Patient Measurement Method Physical Exam General Appearance Alert, Oriented X3, No Acute Distress Skin No Jaundice HEENT Atraumatic, Mucous Membr. moist/pink Neck Supple Cardiovascular Regular Rate, Normal S1, Normal S2 Abdomen Soft, Tenderness to Palpation Most Pronounced in Epigastrium, Positive Bowel Sounds, No Guarding or Rigidity Extremities No Clubbing, No Cyanosis, No Edema Last 24 Hrs of Labs/Gregory: Laboratory Tests 10/16/16 1841: Troponin I < 0.01 10/16/16 1457: Anion Gap 10, Estimated GFR > 60, BUN/Creatinine Ratio 25.7 H, Glucose 101 H, Calcium 9.5, Total Bilirubin 0.8, Direct Bilirubin 0.3, AST 174 H, ALT 408 H, Alkaline Phosphatase 347 H, Troponin I 0.01, Total Protein 7.1, Albumin 4.0, Globulin 3.1, Albumin/Globulin Ratio 1.3, Amylase 63, Lipase 102, PT 35.6 H, INR 3.43 H, CBC w Diff NO MAN DIFF REQ, RBC 5.95, MCV 83.3, MCH 27.7, RDW 15.8 H, MPV 7.2 L, Gran % 65.9, Lymphocytes % 22.9, Monocytes % 9.1, Eosinophils % 1.4, Basophils % 0.7, Absolute Granulocytes 5.9, Absolute Lymphocytes 2.0, Absolute Monocytes 0.8 H, Absolute Eosinophils 0.1, Absolute Basophils 0.1, PUBS MCHC 33.3 Diagnostic Data EKG Results Normal sinus rhythm HR 72 Old T wave flattening/inversion in V3-V5 LVH Other Results CTA CHEST/ABDOMEN/PELVIS: 1. No evidence of aortic dissection. No acute vascular abnormalities are identified in the chest, abdomen, and pelvis. Atherosclerotic disease is detailed above. 2. Expected evolutionary changes and decrease in size of the subcapsular hematoma at the left kidney. 3. Inflamed, torsed epiploic appendage at the anterior margin of the descending colon (epiploic appendagitis). This may be symptomatic. 4. Choledocholithiasis. No biliary ductal dilatation. 5. Prostatomegaly. Assessment/Plan Assessment: 71 y/o M with PMHx of CAD s/p CABG, acute gallstone pancreatitis s/p cholecystectomy and bilateral subsegmental PE who presents with epigastric pain and elevated LFTs in the setting of choledocholithiasis. #Choledocholithiasis: CTA Abdomen with 4 mm stone within the common bile duct but no biliary ductal dilatation. AST/ALT and alkaline phosphatase elevated. No evidence of pancreatitis on imaging and amylase and lipase WNL. No fever or leukocytosis to suggest cholangitis. Patient is s/p cholecystectomy in January 2015 for acute gallstone pancreatitis. * Admit to General Medicine. * GI consult placed. Appreciate their recs. * Keep patient NPO. * Possible ERCP planned tomorrow. * Hydrate with NS @ 100 cc/hr. * No need for further imaging including RUQ US or MRCP as diagnosis is clear given evidence of choledocholithiasis on CTA and elevated LFTs. * In case of fever, hemodynamical instability or other signs of clinical deterioration, consult GI for emergent ERCP. * Repeat LFTs in the AM. #Epiploic appendagitis: CTA Abdomen/Pelvis with inflamed torsed epiploic appendage at the anterior margin of the descending colon. Although unclear whether this finding is related to current symptomatology, per surgery, it can be very painful. However the management is conservative with pain control with no indication for surgery. * General surgery consulted appreciate their recs. * Pain management per below. #History of DVT and bilateral PE: On warfarin 2.5 mg on Tuesdays and 5 mg rest of the week. INR supratherapeutic at 3.43 on admission. * Hold warfarin. * Administer vitamin K if INR is above the therapeutic range for ERCP. #CAD: Inferior wall IL in December 2002 s/p PCI with stent placement followed by two -vessel CABG in 2013 during open heart surgery for aortic valve replacement. * Holding aspirin in anticipation of ERCP tomorrow. * Continue [id number]-vm-alkmbxlwg metoprolol 75 mg PO BID and nitroglycerin patch. * Place cardiology consult given extensive cardiac history. * Serial troponins and EKG to rule out ACS. #HLD: * Holding statin in the setting of transaminitis. * Continue gemfibrozil 600 mg PO BID and ezetimibe 10 mg PO daily. #HTN: * Continue iccla-fm-toxvdokof amlodipine 10 mg PO daily, chlorthalidone 25 mg PO QAM and metoprolol 75 mg PO BID. #Hypothyroidism: * Continue leclg-ju-ttgbdyyan levothyroxine 0.137 mg PO daily. #Gout: * Continue allopurinol 300 mg PO daily. #Memory impairment: Takes memantine 28 mg PO daily. * Memantine 10 mg PO BID. Diet: NPO Pain: Tramadol 50 mg PO Q8H PRN for mild pain (scale 1-3) Oxycodone 5 mg PO Q6H PRN for moderate pain (scale 4-6) Morphine 2 mg IV Q6H PRN for severe pain (scale 7-10) DVT PPx: ALPs CODE: FULL As Ranked By This Provider Problem List: 1. Choledocholithiasis 2. Bilateral pulmonary embolism 3. CAD (coronary artery disease) 4. HLD (hyperlipidemia) 5. Hypothyroidism 6. Gout 7. HTN (hypertension) 8. S/P cholecystectomy 9. Epiploic appendagitis 10. Supratherapeutic INR Core Measures/Miscellaneous Acute Coronary Syndrome ACS Diagnosis: No Cerebrovascular Accident CVA/TIA Diagnosis: No Congestive Heart Failure CHF Diagnosis: No Venous Thromboembolism VTE Risk Factors: Acute medical illness, Age > 40, Obesity, Previous VTE, Varicose veins [facility] prophylaxis d/t: No contraindications No VTE Pharm Prophylaxis d/t: No contraindications VTE Diagnosis: No VTE Type: NONE VTE Confirmed by (Test): NONE Severe Sepsis Severe Sepsis Present: No Septic Shock Septic Shock Present: No Miscellaneous Documentation Attending [facility] Primary Care Physician: SHIRA MUNOZ [facility] Patient sees these Specialists Biomedical Engineering Supervisor Ed Allison MD PhD Channel Development Director Tressa Lemon MD Urologist Curt aPvon MD [place] [employer] Level of Patient Care: General Medicine FIDENCIO ROGERS 10/17/16 0024: Resident Review Statement Resident Statement: examined this patient, discussed with international relations teacher, agreed with international relations teacher, discussed with nursing Other Findings: Mr. Villalta is a 71-year-old gentleman with significant past medical history of hypertension and coronary artery disease, status post inferior wall myocardial infarction (December of 2002), s/p stent placement 2012, and subsequent two-vessel CABG in 2013 while having open heart surgery for mitral valve replacement in May 2014 [bovine valve]. He also has a significant history of hypertension , DENA on nasal CPAP, and hospitalization earlier this year for left subcapsular renal hematoma after lithotripsy. He was again admitted in august of this year and found to have left peroneal veins thrombosis with bilateral subsegmental pulmonary emboli. He is currently on Coumadin for anticoagulation. He presents to the hospital today after being instructed to do so by his primary care physician for abnormal lab results. Notably on his lab results he has transaminitis with elevated alkaline phosphatase as well. He also notes that since being discharged in July he has had recurrent intermittent episodes of abdominal, more specifically epigastric pain, which sometimes radiates from his left flank. He states that for the last 2 days his pain has been significantly worse to the point where he is unable to stand. He states that his pain is a deep pain, and across his upper abdomen but more notably in the epigastric region. He denies any nausea, vomiting, skin discoloration, or change in bowel habits. The remainder of review of systems as dictated above. Of note he also does get a feeling of dizziness and head spinning sometimes associated with driving ever since he was discharged in August. He states that he feels he is going to pass out, and has to drum puller to the side of the road. He states that standing up and yelling/screaming to wake himself up resolving this feeling. He denies any similar episodes when standing. He denies any associated palpitations. He denies any associated flushing or diaphoresis. Vitals 97.9, heart rate 70, respiratory rate 18, BP 147/91 saturating 95% on room air. Physical exam as dictated above with note of tenderness to palpation in the upper abdomen and epigastric region. No CVA tenderness noted bilaterally. EKG revealed normal sinus rhythm at 72 bpm, with signs of LVH. Q waves noted in the inferior leads and T-wave flattening/inversion in V3 to V5, unchanged. Labs show white blood cell count 8.9, H&H 16.5/49.6. AST/frailty 174/408, alkaline phosphatase 347. Imaging as dictated above. No pulmonary embolism. Choledocholithiasis without dilatation of the biliary system noted. Problem list assessment and plan We'll admit the patient to the general medicine floor for the following problems : Choledocholithiasis * We will hydrate the patient with 100 mL of normal saline per hour 2 bags * GI consult placed and appreciated for possible ERCP tomorrow. No role for MRCP right upper quadrant ultrasound as we do know there is a stone already. Of note, the patient did have a cholecystectomy 2014. * Lactic acid was elevated at 2.2, we will repeat and trend does trend upwards. * We will repeat LFTs in the am * We will control his pain as ordered, no acetaminophen. * If he does spike a fever or deteriorates, we will inform GI for an emergent ERCP. * Nothing by mouth at midnight Hx of BL pulmonary emboli * CTA did not reveal any emboli * The patient's INR was supratherapeutic at 3.43. He states that he is on Coumadin 2.5 mg on Saturday, and 5 mg the remainder of the week. * We will not dose today as he will go for ERCP tomorrow morning and the INR supratherapeutic anyways. * If INR remains above the acceptable range for ERCP, consider vitamin K. Coronary artery disease * Continue metoprolol 75 mg twice a day and Nitropatch 0.4 mg daily * We will hold aspirin and avoid NSAIDs as he is going for ERCP tomorrow * Per the patient's medication reconciliation list, he is also receiving sildenafil. This would be a contraindication with his nitroglycerin. Please call his pharmacy/primary care physician tomorrow as the patient did not have on him Hyperlipidemia * We will give the patient's antihyperlipidemic medications except for his statin as he does have elevated AST/ALT * As he does have gallstones, please consider cholestyramine as a bile acid binding resin in the outpt setting. Chronic medical problems including Hypertension, Gout, GERD, hypothyroidism, impaired memory * Continue chlorthalidone 25 mg, Amlodipine 10 mg daily * Continue allopurinol 300 mg * Continue omeprazole 40 mg * Continue levothyroxine 137 mcg * Continue memantine however we will give 10 mg twice a day instead of 28 XR Full code Nothing by mouth Pain pathway disorder No DVT prophylaxis, supratherapeutic INR MARTHA GARCIA, [facility] 10/17/16 0451: Attending MD Review Statement Attending Statement Attending MD Statement: examined this patient, discuss w/resident/PA/DUTY MANAGER, agreed w/resident/PA/DUTY MANAGER Attending Assessment/Plan: 71 yo M with h/o HTN, CAD s/p stent and 2-vessel CABG, bioprosthetic AVR, HTN, DENA on CPAP, recent hospitalization (Jul 2016) for ABLA 2/2 subcapsular and RP hematoma s/p ESWL, after which he was admitted in August 2016 for b/l PE and DVT now on coumadin. He has a previous h/o gallstone pancreatitis treated at the [facility] with subsequent cholecystectomy that was c/b bleeding and infection ( details unknown). He was sent in by PCP for abnormal LFTs. Patient reports intermittent left sided flank pain radiating to the epigastric region and right upper quadrant worse over past 48 hours, not associated with nausea, vomiting or diarrhea. He also c/o recurrent dizziness ?near syncope. He saw Dr. Allison who did a stress test 1 week ago, results of which are not known. VSS. Exam remarkable for abdominal tenderness in epigastric region, RUQ and diffusely on the left side. Labs: no leukocytosis, INR 3.43, bicarb 32, T. Bili normal, AST 174, ALT 408, Alk phos 347, trop neg, amylase/ lipase normal. CTA chest/ abd/pelvis: no aortic dissection, decreasing size of left kidney subcapsular hematoma, inflamed, torse epiploic appendage at anterior margin of descending colon (epiploic appendagitis), choledocholithiasis, no biliary ductal dilatation. EKG: SR, old TWI and flattening. Echo (2017): EF 55%. 1. Choledocholithiasis with transaminitis. No evidence of pancreatitis or cholangitis at this point. GM admit, NPO, IV fluids, pain management. I discussed with Dr. Alvares, if the patient has persistent abdominal pain with elevated LFTs and CT e/o choledocholithiasis, there is no role for MRCP, plan would be ERCP. Official GI consult in AM. Trend LFTs. If patient develops fever, altered mentation or becomes hypotensive, we will panculture and initiate empiric IV antibiotics for possible cholangitis, and inform GI. Hold statins. Rule out ACS with serial EKG and troponin. Cardio consult (Dr. Allison). 2. CT evidence of epiploic appendagitis. Unclear if this could be the etiology of his abdominal pain. Consult surgery. Conservative management with pain meds opiates. No NSAIDs. 3. Supratherapeutic INR while on coumadin for DVT/PE. Hold coumadin, recheck INR in AM. Hold aspirin in anticipation of ERCP. DVT ppx supratherapeutic INR. Full code.
[2016-10-16 21:51] LABS: PT 35.6 SEC (9.4-12.5)
--- NOTE | 2016-10-17 04:52 | Admission Certification ---
Admission Certification Certification Statement - As attending physician, I certify that at the time of - admission, based on clinical presentation, severity of - symptoms, need for further diagnostic testing and - therapeutic interventions, and risk of adverse outcomes - without in-hospital treatment, in my clinical assessment, - this patient requires an acute hospital stay for a minimum - of two nights or longer. I have also considered psychsocial - factors such as support system, advanced age, financial - issues, cognitive issues, and failed out-patient treatments, - past re-admission history, safety of patient, and lack of - compliance as applicable. Specific rationale supporting this admission is: Choledocholithiasis.
[2016-10-17 06:18] LABS: ABSOLUTE BASOPHIL COUNT 0 /CUMM (0.0-0.2); ABSOLUTE EOSINOPHIL COUNT 0.1 /CUMM (0.0-0.7); ABSOLUTE GRANULOCYTE CT 3.9 /CUMM (1.4-6.5); ABSOLUTE LYMPH COUNT 2.4 /CUMM (1.2-3.4); ABSOLUTE MONOCYTE COUNT 0.7 /CUMM (0.10-0.60); BASOPHIL % 0.5 % (0.0-2.0); EOSINOPHIL % 0.9 % (0-5); GRANULOCYTE % 54.6 % (42.2-75.2); HEMATOCRIT 48.1 % (42-52); MEAN CORPUSCULAR HGB 27.6 PG (27.0-31.0); MEAN CORPUSCULAR HGB CONC 33.1 G/DL (33.0-37.0); MEAN CORPUSCULAR VOLUME 83.4 FL (80.0-94.0); MEAN PLATELET VOLUME 7.4 FL (7.4-10.4); PLATELET COUNT 202 /CUMM (130-400); RBC DISTRIBUTION WIDTH 15.8 % (11.5-14.5); RED BLOOD CELL CT 5.77 /CUMM (4.70-6.10); WHITE BLOOD CELL COUNT 7.1 /CUMM (4.8-10.8)
[2016-10-17 06:24] LABS: PT 25.4 SEC (9.4-12.5)
--- NOTE | 2016-10-17 07:24 | PN- Housestaff ---
See Addendum Subjective Follow-up For: Choledocholithiasis Epipploic Appendagitis Supratherapeutic INR with H/O of DVT/PE Subacute Subcapsular Hematoma Subjective: Patient is lying comfortably in bed. States that his abdominal pain is better, but his left sided pain persists. He is aware that he is scheduled for ERCP on Saturday and that he will be started on IV Heparin, which is to be continued till then. Review of Systems Constitutional: Reports: see HPI. Objective Last 24 Hrs of Vital Signs/I&O Vital Signs Date Time Temp Pulse Resp B/P B/P Pulse O2 O2 Flow FiO2 Mean Ox Delivery Rate 10/17 1054 58 142/75 10/17 0612 97.5 58 18 142/75 97 Room Air 10/17 0005 98.2 62 20 139/74 94 Room Air 10/16 2343 98.2 72 18 133/71 98 Room Air 10/16 2341 98.2 72 18 133/71 05/ 2201 98.2 62 18 139/74 95 Room Air 10/16 1731 68 18 145/74 95 Room Air 10/16 1545 72 18 136/76 97 Room Air 10/16 1442 97.9 70 18 147/91 95 Room Air Intake & Output 10/17 1600 10/17 0800 10/17 0000 Intake Total 1500 Output Total 200 Balance 1300 Intake, IV 1500 Output, Urine 200 Patient 200 lb Weight Physical Exam General Appearance: Alert, Oriented X3, Cooperative, No Acute Distress Cardiovascular: Regular Rate, Normal S1, Normal S2, Systolic murmur Lungs: Clear to Auscultation, Normal Air Movement Abdomen: No tenderness of the RUQ noted. Tenderness still present on the left side of the abdomen, without rebound or guarding. Bowel sounds normoactive. Neurological: Normal Speech, Strength at 5/5 X4 Ext, Normal Tone, Sensation Intact Extremities: No Edema Current Medications: Current Medications Sig/Geri Start time Last Medication Dose Route Stop Time Status Admin Allopurinol 300 MG DAILY 10/17 1000 AC 10/17 PO 1055 Amlodipine Besylate 10 MG DAILY 10/17 1000 AC 10/17 PO 1054 Artificial Tears 2 GTT 4 TIMES/DAY 10/16 2244 AC 10/17 OPH 1054 Aspirin Buffered 81 MG DAILY 10/17 1000 CAN PO Atorvastatin Calcium 80 MG 1700 10/17 1700 CAN PO Chlorthalidone 25 MG QAM 10/17 1000 AC 10/17 PO 1054 Docusate Sodium 100 MG DAILY 10/17 1000 AC 10/17 PO 1054 Ezetimibe 10 MG DAILY 10/17 1000 AC 10/17 PO 1054 Ferrous Sulfate 325 MG BID 10/17 1000 AC 10/17 PO 1054 Fluticasone 2 SPRAY DAILY 10/17 1000 AC 10/17 Propionate JEF 1054 Gemfibrozil 600 MG BID 10/16 2231 AC 10/17 PO 1054 Heparin Sodium 25,000 UNIT Q24H 10/17 0915 AC 10/17 (Porcine) IV 1048 Sodium Chloride 500 ML Ibuprofen 400 MG Q6P PRN 10/16 223 DC PO Levothyroxine Sodium 0.137 MG 0700 10/17 0700 AC 10/17 PO 0652 Magnesium Hydroxide 5 ML Q12P PRN 10/16 2245 AC PO Memantine 10 MG BID 10/16 2231 AC 10/17 PO 1054 Metoprolol Tartrate 75 MG BID 10/17 1000 AC 10/17 PO 1054 Metoprolol Tartrate 0 .STK-MED ONE 10/16 2340 DC PO Metoprolol Tartrate 75 MG BID 10/16 223 DC 10/16 PO 2341 Morphine Sulfate 0 .STK-MED ONE 10/16 2241 DC .ROUTE Morphine Sulfate 2 MG Q6-PRN PRN 10/16 223 AC IV Morphine Sulfate 1 MG ONCE ONE 10/16 221 DC 10/16 IV 10/16 221 2239 Nitroglycerin 0.4 MG DAILY 10/17 1000 AC 10/17 TOP 1054 Omeprazole 40 MG DAILY AC 10/17 0700 AC 10/17 PO 0652 Omeprazole 0 .STK-MED ONE 10/17 0654 DC PO Oxycodone HCl 5 MG Q6P PRN 10/16 2230 AC PO Prednisolone 1 GTT DAILY 10/17 1000 AC 10/17 OPH 1054 Sodium Chloride 1,000 ML .[id number] 10/16 2215 AC IV 10/18 0054 Sodium Chloride 1,000 ML ONCE ONE 10/16 1545 DC 10/16 IV 10/17 0504 1546 Tamsulosin HCl 0.4 MG QPM 10/17 2200 AC PO Tramadol HCl 50 MG Q8P PRN 10/17 0230 AC PO Last 24 Hrs of Lab/Gregory Results Last 24 Hrs of Labs/Mics: Laboratory Tests 10/17/16 0604: Anion Gap 9, Estimated GFR > 60, BUN/Creatinine Ratio 20.0, Total Bilirubin 0.8, Direct Bilirubin 0.2, AST 95 H, ALT 293 H, Alkaline Phosphatase 314 H, Troponin I 0.03, Total Protein 6.3, Albumin 3.4 L, PT 25.4 H, INR 2.44 H, CBC w Diff NO MAN DIFF REQ, RBC 5.77, MCV 83.4, MCH 27.6, RDW 15.8 H, MPV 7.4, Gran % 54.6, Lymphocytes % 34.2, Monocytes % 9.8 H, Eosinophils % 0.9, Basophils % 0.5, Absolute Granulocytes 3.9, Absolute Lymphocytes 2.4, Absolute Monocytes 0.7 H, Absolute Eosinophils 0.1, Absolute Basophils 0, PUBS MCHC 33.1 10/17/16 0600: Troponin I Cancelled 10/16/16 1841: Troponin I < 0.01 10/16/16 1457: Anion Gap 10, Estimated GFR > 60, BUN/Creatinine Ratio 25.7 H, Glucose 101 H, Calcium 9.5, Total Bilirubin 0.8, Direct Bilirubin 0.3, AST 174 H, ALT 408 H, Alkaline Phosphatase 347 H, Troponin I 0.01, Total Protein 7.1, Albumin 4.0, Globulin 3.1, Albumin/Globulin Ratio 1.3, Amylase 63, Lipase 102, PT 35.6 H, INR 3.43 H, CBC w Diff NO MAN DIFF REQ, RBC 5.95, MCV 83.3, MCH 27.7, RDW 15.8 H, MPV 7.2 L, Gran % 65.9, Lymphocytes % 22.9, Monocytes % 9.1, Eosinophils % 1.4, Basophils % 0.7, Absolute Granulocytes 5.9, Absolute Lymphocytes 2.0, Absolute Monocytes 0.8 H, Absolute Eosinophils 0.1, Absolute Basophils 0.1, PUBS MCHC 33.3 Lines/Diet/Fluids Lines: peripheral lines Assessment/Plan Assessment: 71 y/o M qith PMH of HTN, CAD s/p stent and 2 vessel CABG, bioprosthetic AVR, DENA on CPAP, HTN and recent hospitalization for subcapsular and RP hematoma s/p ESWL, now on Coumadin for DVT, who presents to the ED with abnormal LFT's noted by his PCP. He did experience some epigastric and RUQ pain over the last 48 hours. CTA A/P showed thr presence of choledocholithiasis with no biliary duct dilation and torsed epiploic appendagitis. Trops x 3 were negative. Problem List: 1) Choledocholithiasis with elevated LFT's 2) CTA A/P showing epiploic appendagitis. 3) H/O CAD s/p CABG with recent stress test showing the presence of small region of ischemia in the inferior wall. 4) Bioprosthetic AVR 5) H/O DVT on Coumadin, currently Supratherapeutic 5) DENA on CPAP 6) HTN Plan: * Monitor on GM * Patient has been seen by GI, scheduled for an ERCP to be done on 10/19. Monitor LFT's till then. LFT's currently trending down, with resolution of RUQ pain. * INR today was 2.44. Start IV heparin per Cardiology for high risk, till the procedure. Check INR in AM. * Continue other home medications for now. * NPO past midnight, tomorrow night, for procedure on 10/19. * Pain Management: Currently on Morphine 2 mg Q6PRN IV and Roxicodone 5 mg Q6P. Well controlled. continue for now. * DVT PPx: Heparin gtt * Code Status: Full Code. Problem List: 1. Supratherapeutic INR 2. Epiploic appendagitis 3. Choledocholithiasis Pain Ratin Pain Location: NONE Pain Goal: Pain 4 or less Pain Plan: PER EMR Tomorrow's Labs & Rationales: cbc, bep, lft, inr DVT/Prophylaxis: pharmacological
--- NOTE | 2016-10-17 07:30 | Cons- Cardiology ---
General Information and HPI Consulting Request Date of Consult: 10/16/16 Requested By: Dr. Guzman History of Present Illness: Js is a 71 year old male with history of hypertension and coronary artery disease, status post inferior wall myocardial infarction, which he experienced in December of 2002. He also carries a history of moderate to severe aortic stenosis for which he recently underwent surgery. The aortic valve replacement procedure was accompanied by placement of two bypass grafts. He did have some post operative atrial fibrillation. Finally, the patient has significant sleep apnea. Js was recently admitted to [facility] with a subcapsular hematoma of the kidney after a lithotripsy. He now presents to the ER for evaluation of moderate abdominal discomfort exacerbated by manual palpation. He denies nausea or vomiting but has noted weight loss. He also denies chest pain, pressure or tightness, shortness of breath or palpitations. He does have episodes of lightheadedness without any true syncope. Initial labs disclosed an elevation of his hepatic transaminases and his ECG shows non-specific T wave changes compared with his prior ECG. It should be noted that a couple months ago this patient did have a mild rise in cardiac troponin and chest discomfort in the setting of physiologic distress. I therefore opted to risk stratify this patient with a stress test that disclosed a small region of ischemia in the inferior wall. Finally, it should be noted that this patient also has noted leg discomfort bilaterally along with a numbness of the lower extremities. It should be recalled that this patient underwent an open cholecystectomy at the [facility] which I believe was also complicated by bleeding and infection. His last echo showed a low normal EF of 50-55% with mild LVH and paradoxical septal motion consistent with a post-operative state. The left atrium is normal in size. Trace MR and TR is noted. To review this patient's prior history, Js underwent cardiac catheterization which disclosed multivessel coronary artery disease along with aortic stenosis. he had exertional chest discomfort relieved by rest along with shortness of breath. On last visit he also had lower extremity swelling and abdominal ascities that has improved with lasix. In the past this patient reported some very atypical symptoms described as an intermittent electric sensation across his chest which I felt was related to disc disease rather than cardiac disease by its description. He is also followed up by Dr. Barbosa for his peripheral vascular disease. Finally, Js has hypothyroidism and he attributes some of his weight gain to this condition. 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 It harbored a 70% proximal stenosis followed by a 90% mid stenosis and underwent PTCA with stent placement. He was also noted to have a left main with an unusually high takeoff. Allergies/Medications Allergies: Coded Allergies: NO KNOWN ALLERGIES (07/24/16) Home Med List: Allopurinol 300 MG TABLET 300 MG PO D GOUT (Reported) Alprostadil (Caverject) 20 MCG KIT 20 MCG .ROUTE NEEDED PRN ERECTILE DYSFUNCTION (Reported) INTRACAVERNOSAL Amlodipine Besylate (Norvasc) 10 MG TABLET 10 MG PO HTN HTN (Reported) Reason to Stop at ADM: BP within control, will restart if it goes >120-130 Aspirin (Ecotrin*) 81 MG TABLET.DR 1 TAB PO DAILY HEART/BLOOD (Reported) Chlorthalidone 25 MG TABLET 25 MG PO QAM CARDIAC (Reported) Docusate Sodium (Colace) 100 MG CAPSULE 1 CAP PO DAILY STOOL SOFTENER ( Reported) Ezetimibe (Zetia) 10 MG TABLET 10 MG PO D CHOLESTEROL (Reported) Ferrous Sulfate 325 MG (65 MG IRON) TABLET 325 MG PO BID ANEMIA (Reported) Fluticasone Propionate 50 MCG/ACTUATION SPRAY.SUSP 2 SPRAY NASB DAILY BREATHING (Reported) Gemfibrozil (Lopid) 600 MG TABLET 600 MG PO BID Cholesterol Lactose-Reduced Food (Ensure Liquid) 237 ML LIQUID 1 CAN PO DAILY PRN NUTRITIONAL SUPPLEMENT (Reported) Levothyroxine Sodium 137 MCG TABLET 137 MCG PO QAM HYPOTHYROIDISM (Reported) Magnesium Hydroxide (Milk Of Magnesia) 400 MG/5 ML ORAL.SUSP 5 ML PO BID PRN CONSTIPATION Memantine HCl (Namenda XR) 28 MG CAP.SPR.24 1 CAP PO DAILY MEMORY (Reported) Metoprolol Succinate 25 MG TAB 75 MG PO BID HYPERTENSION Nitroglycerin (Nitroglycerin Patch) 0.4 MG/HOUR PATCH.TD24 0.4 MG TOP DAILY Chest pain Omeprazole 40 MG CAPSULE.DR 40 MG PO D GERD (Reported) Prednisolone Acetate (Omnipred) 1 % DROPS.SUSP 1 GTT OPH DAILY EYE(S) ( Reported) Rosuvastatin Calcium (Crestor) 20 MG TABLET 20 MG PO D CHOLESTEROL (Reported) Sildenafil Citrate (Viagra) 100 MG TABLET 1 TAB PO DAILY NEEDED ERECTILE DYSFUNCTION (Reported) 1 hour before sexual activity Tamsulosin HCl (Flomax) 0.4 MG CAP.ER.24H 0.4 MG PO QPM BPH (Reported) Warfarin Sodium 5 MG TABLET 1 TAB PO AD BLOOD THINNER (Reported) Warfarin Sodium (Coumadin) 2.5 MG TABLET 1 TAB PO QTUES BLOOD THINNER ( Reported) Past History Travel History Traveled to [place] past 21 day No Medical History Neurological: CVA EENT: NONE Cardiovascular: aortic stenosis, CAD, hypertension, hyperlipidemia, myocardial infarction, NSTEMI, PVD, syncope, bioprosthetic aortic valve replacement with 2 bypass grafts post-op atrial fibrillation Respiratory: obstructive sleep apnea Gastrointestinal: GERD, incisional hernia inguinal hernia Hepatic: hepatitis C Renal: nephrolithiasis, urinary incontinence, left renal subcapsular hematoma Musculoskeletal: gout, osteoarthritis Psychiatric: NONE Endocrine: diabetes, hypothyroidism Blood Disorders: DVT, PE Cancer(s): NONE 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 MOTHER, , Age 60+; Cause: due to natural causes. SISTER, , Age 40-50; Cause: Breast cancer. FH: breast cancer Relation not specified for: No family history of cardiac disease Psychosocial History Where Do You Live? Home Services at Home: Nursing Smoking Status: Never Smoked ETOH Use: denies use Illicit Drug Use: denies illicit drug use Functional Ability ADLs Independent: dressing, eating, toileting, bathing. Ambulation: independent IADLs Independent: shopping, housework, finances, food prep, telephone, transportation , medication admin. 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 ECHO Results (as available) Date of last Echo 08/17/16 EF% 55 Exam & Diagnostic Data Vital Signs and I&O Vital Signs Date Time Temp Pulse Resp B/P B/P Pulse O2 O2 Flow FiO2 Mean Ox Delivery Rate 10/17 0612 97.5 58 18 142/75 97 Room Air 10/17 0005 98.2 62 20 139/74 94 Room Air 10/16 2343 98.2 72 18 133/71 98 Room Air 05/09 2341 98.2 72 18 133/71 10/16 2201 98.2 62 18 139/74 95 Room Air 10/16 1731 68 18 145/74 95 Room Air 10/16 1545 72 18 136/76 97 Room Air 10/16 1442 97.9 70 18 147/91 95 Room Air Intake & Output 10/17 0800 10/17 0000 10/16 1600 10/16 0800 10/16 0000 10/15 1600 Intake Total 1500 Output Total 200 Balance 1300 Intake, IV 1500 Output, Urine 200 Patient 200 lb 200 lb Weight Weight Reported by Patient Measurement Method Physical Exam: General: WD/ WN male in NAD; alert and oriented x 3 HEENT: NC/AT, PERRL, EOMI, clear oropharynx Neck: no JVD, no carotid bruit Heart RRR with 3/6 systolic murmur Lungs: clear bilaterally Abdomen: soft, mildly tender, +ve bowel sounds Extremities: no edema Assessment/Plan Assessment/Plan * This patient has a persistent abdominal pain that does not appear to be resolving despite multiple weeks passing since his subcapsular bleed and a decreasing size in his hematoma. In addition, this patient has elevated hepatic transaminases and weight loss. It should be noted that this patient is on a statin which can increase hepatic transaminases. I would stop this medication and monitor for improvement for diagnostic purposes. * This patient carries a history of recent type 2 MA with chest discomfort but this was in the setting of an acute bleeding episode. In addition, he did have a recent stress test that was supportive of mild ischemia in the inferior wall. We will monitor this patient for symptoms and continue to treat his ischemia medically for now, especially considering his recent bleeding issues. If he does not respond to medical therapy then a repeat cardiac catheterization will be pursued. Consult Acknowledgment - Thank you for your consult request.
--- NOTE | 2016-10-17 08:09 | Cons- Gastroenterology ---
General Information and HPI Consulting Request Date of Consult: 10/17/16 Requested By: SAMARA KNOWLES MD Reason for Consult: I was notified this morning of a request for a GI consult to assess CBD stone, vague abdominal pain and elevated LFTs (please note, the patient has a past history of Hep C). *The GI service was told by the ER last evening that the patient was being discharged. Source of Information: patient, old records Exam Limitations: fair historian, complex history History of Present Illness: 71-year-old male with extensive past medical and past surgical history, ASHD post IWMI- stent 12/2002, post CABG x 2 05/21/2014 with bovine AVR, transient postop afib (NSR), HTN, HLD, DM, PVD post B/L fempop & R CEA, DENA, hypoT4, Ca2+ nephrolithiasis, DJD, gout, BPH, [facility] for gallstone pancreatitis (c/b bleeding with transfusion then), history of Hepatitis C (reportedly treated in our old office pre-EMR, with what sounds like PEG IFN & Ribaviron; limited old records in outpatient EMR- presumably achieved SVR, but not documented). : HIV- negative. He complained his risk factor for Hep C was that his ex- used IV drugs. *Please note, the patient was hospitalized at [facility] 07/24/16 - 08/03/16 for left flank pain, subcapsular left renal hematoma with retroperitoneal extension (post ASA 325), post 07/24/16: ESWL for left renal stone, c/b EKG changes, elevated troponin, and DE. He was then readmitted to [facility] 08/16/16 - 08/22/16, with acute right-sided pleuritic chest pain and CTA showing bilateral subsegmental PE, with no evidence of right heart strain. *Doppler of LLE was postive for DVT then. The patient was given IV heparin & bridged to Coumadin. IVC filter was recommended by cardiology, in the setting of recent left renal subcapsular hematoma, but it was deemed unnecessary per hematology at that point. Therefore, an IVC filter was not placed. He was discharged on Coumadin 0.5 mg daily and taken off full-strength aspirin. The patient presented to the [facility] ER 10/16/2016 at 2:32 PM, sent in by his PMD for further evaluation of elevated LFTs obtained 2 days SUPERINTENDENT SANITATION and vague abdominal pain. Upon arrival, BP 147/91, P 70, R 18, T 97.9, O2 sat RA 95%. The patient stated he has had chronic intermittent episodes of abdominal pain since the left renal subcapsular hematoma extending to the retroperitoneum 3 months prior, at times epigastric in nature, but currently with bilateral lower abdominal discomfort, radiating to the left flank. At times he also notes vague nonexertional chest pain, with a pressure sensation when driving his car. The symptoms worsened over the past 2 days SUPERINTENDENT SANITATION. The symptoms alternate between dull and sharp in quality, approximately "7 out of 10". He denied any shortness of breath, diaphoresis, pleuritic pain, or hemoptysis. He denied any nausea, vomiting, fevers, chills, jaundice, dark urine, light stool, pruritus, GERD, odynophagia, dysphagia, or early satiety. He claims he lost 30 pounds over the last 3 months since the subcapsular hematoma in 07/2016. He denied any hematemesis, rectal bleeding, or melena. He has a bowel movement daily on MiraLAX. He denied any change in bowel habits. Aside from minimal constipation, he denied any diarrhea, constipation, or tenesmus. There is no family history of GI disease, GI malignancy, or inherited liver disease. With regards to his LFTs, he denied any new outpatient medications. He was on a statin (Crestor), which was held on admission. He had been on this for some time. He had a slightly supratherapeutic INR on admission. *A recent outpatient stress test by Dr. Allison disclosed a small region of ischemia in the inferior wall. The ER initially told the GI service on the evening of 10/16/2016 that the patient was being discharged for outpatient workup, but I found that he was admitted this morning. *The patient's Coumadin was held this admission and he was bridged IV heparin. 11/10/2010: Combined upper endoscopy to the third portion of the duodenum with biopsies, plus colonoscopy to the terminal ileum, with prophylactic clipping x1, plus BICAP polypectomy, in addition to random biopsies at different sites, was performed by myself for questionable melena & questionable rectal bleeding ( brown, OB-negative stool then)- no varices, no portal gastropathy, moderate chronic gastritis, H. pylori negative on biopsies, mild GERD on biopsies without Constantino's or EOE, random biopsies D2/D3-negative; random biopsies of terminal ileum, colon, and rectum- negative, no true polyp tissue in left colon, but rather benign lymphoid aggregate. (*A follow-up colonoscopy was advised in 10 years, as per current average-risk for colon cancer screening guidelines, namely 11/2020). In 11/2010, Prilosec was switched to Prevpac for 14 days, to be followed by [facility], for a 11/15/2010: positive H. pylori antibody. 10/16/2016: Admission labs- WBC 8.9, H/H 16.5/49.6, normal MCV, PLT 225, PTT 35.6, INR 3.43; glucose 93, BUN/Cr 12/0.8, GFR > 60, normal electrolytes, * normal LFTs except alk phos 182, troponin < 0.01 (x 2), BNP 210, normal FT4 with normal TSH 1.42 10/16/2016: Amylase 63, lipase 102, albumin 4.0, globulin 3.1, TBil 0.8, DBil 0.3, *alk phos 347, *AST 174, *ALT 408 (repeat LFTs). 10/17/2016: CBC 7.1, H/H 15.9/40.1, PLT 202, PT 25.4, INR 2.44, PTT 106 (on IV heparin); troponin .03, abdomen 3.4, globulin 2.9, TBil 0.8, DBil 0.2, alk phos 314, AST 95, ALT 293 10/17/2016: U/A- clear, yellow, 1.010, 7.5; otherwise negative (no RBC) 10/17/2016: U Tox- negative 10/16/2016: EKG- NSR @ 72, normal axis, normal intervals, LVH, Q anteroseptal 10/16/2016: CT ABD & PELVIS ANGIOGRAM; CTA CHEST-AORTIC DISSECTION- 1. No evidence of aortic dissection. No acute vascular abnormalities are identified in the chest, abdomen, and pelvis. 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 Previously seen subcentimeter pulmonary emboli are not identified on the current study and have largely resolved. 2. Expected evolutionary changes and decrease in size of the subcapsular hematoma at the left kidney. Large 6.9 cm right renal cyst, without change & multiple left renal cysts. 3. Inflamed, torsed epiploic appendage at the anterior margin of the descending colon (epiploic appendagitis). This may be symptomatic. Small fat containing LIH. 4. Choledocholithiasis (4 mm stone). No biliary ductal dilatation. Post CCKY. 5. Prostatomegaly. 6. DJD. T-L scoliosis. Allergies/Medications Allergies: Coded Allergies: NO KNOWN ALLERGIES (07/24/16) Home Med List: Allopurinol 300 MG TABLET 300 MG PO D GOUT (Reported) Alprostadil (Caverject) 20 MCG KIT 20 MCG .ROUTE NEEDED PRN ERECTILE DYSFUNCTION (Reported) INTRACAVERNOSAL Amlodipine Besylate (Norvasc) 10 MG TABLET 10 MG PO HTN HTN (Reported) Reason to Stop at ADM: BP within control, will restart if it goes >120-130 Aspirin (Ecotrin*) 81 MG TABLET.DR 1 TAB PO DAILY HEART/BLOOD (Reported) Chlorthalidone 25 MG TABLET 25 MG PO QAM CARDIAC (Reported) Docusate Sodium (Colace) 100 MG CAPSULE 1 CAP PO DAILY STOOL SOFTENER ( Reported) Ezetimibe (Zetia) 10 MG TABLET 10 MG PO D CHOLESTEROL (Reported) Ferrous Sulfate 325 MG (65 MG IRON) TABLET 325 MG PO BID ANEMIA (Reported) Fluticasone Propionate 50 MCG/ACTUATION SPRAY.SUSP 2 SPRAY NASB DAILY BREATHING (Reported) Gemfibrozil (Lopid) 600 MG TABLET 600 MG PO BID Cholesterol Lactose-Reduced Food (Ensure Liquid) 237 ML LIQUID 1 CAN PO DAILY PRN NUTRITIONAL SUPPLEMENT (Reported) Levothyroxine Sodium 137 MCG TABLET 137 MCG PO QAM HYPOTHYROIDISM (Reported) Magnesium Hydroxide (Milk Of Magnesia) 400 MG/5 ML ORAL.SUSP 5 ML PO BID PRN CONSTIPATION Memantine HCl (Namenda XR) 28 MG CAP.SPR.24 1 CAP PO DAILY MEMORY (Reported) Metoprolol Succinate 25 MG TAB 75 MG PO BID HYPERTENSION Nitroglycerin (Nitroglycerin Patch) 0.4 MG/HOUR PATCH.TD24 0.4 MG TOP DAILY Chest pain Omeprazole 40 MG CAPSULE.DR 40 MG PO D GERD (Reported) Prednisolone Acetate (Omnipred) 1 % DROPS.SUSP 1 GTT OPH DAILY EYE(S) ( Reported) Rosuvastatin Calcium (Crestor) 20 MG TABLET 20 MG PO D CHOLESTEROL (Reported) Sildenafil Citrate (Viagra) 100 MG TABLET 1 TAB PO DAILY NEEDED ERECTILE DYSFUNCTION (Reported) 1 hour before sexual activity Tamsulosin HCl (Flomax) 0.4 MG CAP.ER.24H 0.4 MG PO QPM BPH (Reported) Warfarin Sodium 5 MG TABLET 1 TAB PO AD BLOOD THINNER (Reported) Warfarin Sodium (Coumadin) 2.5 MG TABLET 1 TAB PO QTUES BLOOD THINNER ( Reported) Past History Travel History Traveled to [place] past 21 day No Medical History Blood Transfusion Hx: Yes (at time of 01/2015 open CCKY) Neurological: CVA EENT: NONE Cardiovascular: AFIB (transient postop - NSR), aortic stenosis, CAD, hypertension, hyperlipidemia, myocardial infarction, NSTEMI (07/2016), PVD, syncope, bioprosthetic aortic valve replacement with 2 bypass grafts post-op atrial fibrillation Respiratory: obstructive sleep apnea Gastrointestinal: incisional hernia left inguinal hernia Hepatic: NONE (? 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 MOTHER, , Age 90; Cause: due to natural causes. SISTER, , Age 40-50; Cause: Breast cancer. FH: breast cancer Relation not specified for: No family history of cardiac disease Psychosocial History Where Do You Live? Home Who Do You Live With? self Services at Home: Nursing Primary Language: Norwegian, Kuwaiti Smoking Status: Never Smoked ETOH Use: denies use Illicit Drug Use: denies illicit drug use Living Will? no Power of Building Services Engineer/HCP? no Other Social History: . Lives alone. No cigarettes, drugs, EtOH, IVDA or tattoos. "Exposed to Hep C, as his ex- was IVDA". Blood transfx 01/2015, post CCKY. 2 dtrs & 1 son- [employer]. 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 Uses cane. Born in [place]. Lives in since 1957. Functional Ability ADLs Independent: dressing, eating, toileting, bathing. Ambulation: independent IADLs Independent: shopping, housework, finances, food prep, telephone, transportation , medication admin. 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 Review of Systems Constitutional: Reports: unexplained weight loss (30 lbs since 07/2016 hematoma). Denies: chills, diaphoresis, fever, malaise, weakness. EENTM: Denies: blurred vision, double vision, visual changes, eye pain, eye drainage, eye tearing, icterus, ear discharge, ear pain, ear redness, hearing changes, nasal congestion, epistaxis, nasal pain, throat pain, throat swelling, mouth pain, tooth pain. Cardiovascular: Reports: chest pain (non-exertional). Denies: edema, orthopena, palpitations, peripheral edema, syncope. Respiratory: Denies: cough, hemoptysis, orthopnea, short of breath, sputum production, stridor, wheezing. GI: Reports: abdominal pain. Denies: bloating, constipation, diarrhea, distention, bowel incontinence, melena, nausea, bloody stool, changes in stool, vomiting, steatorrhea. Genitourinary: Reports: nocturia (BPH). Denies: discharge, dysuria, frequency, hematuria, hesitation, pain, urgency. Musculoskeletal: Reports: joint pain (DJD/gout). Denies: back pain, gout, joint swelling, muscle pain, muscle stiffness, neck pain. Skin: Denies: cysts, change in skin color, change in hair/nails, dryness, erythema, jaundice, lesions, lymphangitis, lumps, moles, rash. Neurological/Psychological: Denies: anxiety, ataxia, cognitive dysfunction, confusion, depressed, dementia, emotional problems, headache, numbness, paresthesia, pre-existing deficit, petit mal seizures, tingling, tremors, tonic-clonic seizures, unable to move lower ext , unable to move upper ext, weakness. Hematologic/Endocrine: Denies: bruising, bleeding, polyuria, polydipsia. Immunologic/Allergic: Denies: splenectomy, HIV/AIDS, lymphadenopathy. All Other Systems: Reviewed and Negative Exam & Diagnostic Data Vital Signs and I&O Vital Signs Date Time Temp Pulse Resp B/P B/P Pulse O2 O2 Flow FiO2 Mean Ox Delivery Rate 10/17 1500 98.0 70 20 122/80 98 Room Air 10/17 1054 58 142/75 10/17 0612 97.5 58 18 142/75 97 Room Air 10/17 0005 98.2 62 20 139/74 94 Room Air 10/16 2343 98.2 72 18 133/71 98 Room Air 10/16 2341 98.2 72 18 133/71 10/16 2201 98.2 62 18 139/74 95 Room Air Intake & Output 10/17 1600 10/17 0400 10/16 1600 10/16 0400 10/15 1600 10/15 0400 Intake Total 740 1000 Output Total 300 200 Balance 440 800 Intake, IV 500 1000 Intake, Oral 240 Number 1 Bowel Movements Output, Urine 300 200 Patient 200 lb 200 lb Weight Weight Reported by Patient Measurement Method Physical Exam: Well-developed, well-nourished male, in no apparent distress. Sclera anicteric. Conjunctiva pink. Oropharynx clear. No oral thrush. No aphthous ulcers. There is no adenopathy, thyromegaly, or JVD. No peripheral stigmata of inflammatory bowel disease or chronic liver disease on exam. No spiders on the anterior chest wall. No gynecomastia. No CVA tenderness. T-L scoliosis. Lungs: clear to A&P, with slight decreased BS at the bases B/L. No wheezing, rales, or rhonchi. No CWT. Heart exam: currently regular rate rhythm, S1 and S2, with III/ systolic murmur. Post CABG scar. Abdominal exam: normal bowel sounds, soft belly, minimal B/L lower quadrant tenderness on deep palpation, without guarding or rebound. Small reducible LIH, otherwise no mass. Vertical RUQ scar, post CCKY. No organomegaly. No fluid shift. No pulsatile mass. Digital rectal exam: deferred by patient ("recently OB-negative at urology"). Extremities: without C, C, or E. No palpable cords. Mild DJD. Distal pulses 2+ bilaterally. DTRs 2+ bilaterally. Alert and oriented x 3. Right handed. Nonfocal, although a detailed exam for peripheral neuropathy was deferred. No tremor. No asterixis. Results Pertinent Lab Results: Laboratory Tests 10/17 10/17 1900 1823 Coagulation APTT (25 - 37 SEC) 106 *H Toxicology Urine Opiates Screen (>2000 NG/ML) 148.00 Methadone Screen (>300 NG/ML) < 40 Barbiturate Screen (>200 NG/ML) < 60 Ur Phencyclidine Scrn (>25 NG/ML) < 6.00 Amphetamines Screen (>1000 NG/ML) < 100 U Benzodiazepines Scrn (>200 NG/ML) < 85 Urine Cocaine Screen (>300 NG/ML) < 50 Urine Cannabis Screen (>50 NG/ML) < 5.00 Urines Urine Color (YEL,AMB,STR) YEL Urine Clarity (CLEAR) CLEAR Urine pH (5.0 - 8.0) 7.5 Ur Specific [place] (1.001 - 1.035) 1.010 Urine Protein (NEG,<30 MG/DL) NEG Urine Ketones (NEG) NEG Urine Nitrite (NEG) NEG Urine Bilirubin (NEG) NEG Urine Urobilinogen (0.1 - 1.0 EU/dl) 0.2 Ur Leukocyte Esterase (NEG) NEG Ur Microscopic EXAM NOT REQUIRED Urine Hemoglobin (NEG) NEG Urine Glucose (N MG/DL) NEG 10/17 10/17 10/16 0604 0600 1841 Chemistry Sodium (137 - 145 mmol/L) 139 Potassium (3.5 - 5.1 mmol/L) 4.0 Chloride (98 - 107 mmol/L) 100 Carbon Dioxide (22 - 30 mmol/L) 30 Anion Gap (5 - 16) 9 BUN (9 - 20 mg/dL) 14 Creatinine (0.7 - 1.2 mg/dL) 0.7 Estimated GFR (>60 ml/min) > 60 BUN/Creatinine Ratio (7 - 25 %) 20.0 Total Bilirubin (0.2 - 1.3 mg/dL) 0.8 Direct Bilirubin (< 0.4 mg/dL) 0.2 AST (17 - 59 U/L) 95 H ALT (21 - 72 U/L) 293 H Alkaline Phosphatase (< 127 U/L) 314 H Troponin I (<0.11 ng/ml) 0.03 Cancelled < 0.01 Total Protein (6.3 - 8.2 g/dL) 6.3 Albumin (3.5 - 5.0 g/dL) 3.4 L Coagulation PT (9.4 - 12.5 SEC) 25.4 H INR (0.90 - 1.17) 2.44 H Hematology CBC w Diff NO MAN DIFF REQ WBC (4.8 - 10.8 /CUMM) 7.1 RBC (4.70 - 6.10 /CUMM) 5.77 Hgb (14.0 - 18.0 G/DL) 15.9 Hct (42 - 52 %) 48.1 MCV (80.0 - 94.0 FL) 83.4 MCH (27.0 - 31.0 PG) 27.6 RDW (11.5 - 14.5 %) 15.8 H Plt Count (130 - 400 /CUMM) 202 MPV (7.4 - 10.4 FL) 7.4 Gran % (42.2 - 75.2 %) 54.6 Lymphocytes % (20.5 - 51.1 %) 34.2 Monocytes % (1.7 - 9.3 %) 9.8 H Eosinophils % (0 - 5 %) 0.9 Basophils % (0.0 - 2.0 %) 0.5 Absolute Granulocytes (1.4 - 6.5 /CUMM) 3.9 Absolute Lymphocytes (1.2 - 3.4 /CUMM) 2.4 Absolute Monocytes (0.10 - 0.60 /CUMM) 0.7 H Absolute Eosinophils (0.0 - 0.7 /CUMM) 0.1 Absolute Basophils (0.0 - 0.2 /CUMM) 0 PUBS MCHC (33.0 - 37.0 G/DL) 33.1 05/09 1457 Chemistry Sodium (137 - 145 mmol/L) 139 Potassium (3.5 - 5.1 mmol/L) 4.3 Chloride (98 - 107 mmol/L) 97 L Carbon Dioxide (22 - 30 mmol/L) 32 H Anion Gap (5 - 16) 10 BUN (9 - 20 mg/dL) 18 Creatinine (0.7 - 1.2 mg/dL) 0.7 Estimated GFR (>60 ml/min) > 60 BUN/Creatinine Ratio (7 - 25 %) 25.7 H Glucose (65 - 99 mg/dL) 101 H Calcium (8.4 - 10.2 mg/dL) 9.5 Total Bilirubin (0.2 - 1.3 mg/dL) 0.8 Direct Bilirubin (< 0.4 mg/dL) 0.3 AST (17 - 59 U/L) 174 H ALT (21 - 72 U/L) 408 H Alkaline Phosphatase (< 127 U/L) 347 H Troponin I (<0.11 ng/ml) 0.01 Total Protein (6.3 - 8.2 g/dL) 7.1 Albumin (3.5 - 5.0 g/dL) 4.0 Globulin (1.9 - 4.2 gm/dL) 3.1 Albumin/Globulin Ratio (1.1 - 2.2 %) 1.3 Amylase (30 - 110 U/L) 63 Lipase (23 - 300 U/L) 102 Coagulation PT (9.4 - 12.5 SEC) 35.6 H INR (0.90 - 1.17) 3.43 H Hematology CBC w Diff NO MAN DIFF REQ WBC (4.8 - 10.8 /CUMM) 8.9 RBC (4.70 - 6.10 /CUMM) 5.95 Hgb (14.0 - 18.0 G/DL) 16.5 Hct (42 - 52 %) 49.6 MCV (80.0 - 94.0 FL) 83.3 MCH (27.0 - 31.0 PG) 27.7 RDW (11.5 - 14.5 %) 15.8 H Plt Count (130 - 400 /CUMM) 225 MPV (7.4 - 10.4 FL) 7.2 L Gran % (42.2 - 75.2 %) 65.9 Lymphocytes % (20.5 - 51.1 %) 22.9 Monocytes % (1.7 - 9.3 %) 9.1 Eosinophils % (0 - 5 %) 1.4 Basophils % (0.0 - 2.0 %) 0.7 Absolute Granulocytes (1.4 - 6.5 /CUMM) 5.9 Absolute Lymphocytes (1.2 - 3.4 /CUMM) 2.0 Absolute Monocytes (0.10 - 0.60 /CUMM) 0.8 H Absolute Eosinophils (0.0 - 0.7 /CUMM) 0.1 Absolute Basophils (0.0 - 0.2 /CUMM) 0.1 PUBS MCHC (33.0 - 37.0 G/DL) 33.3 Imaging/Other Studies: 10/16/2016: EKG- NSR @ 72, normal axis, normal intervals, LVH, Q anteroseptal. 10/16/2016: CT ABD & PELVIS ANGIOGRAM; CTA CHEST-AORTIC DISSECTION- 1. No evidence of aortic dissection. No acute vascular abnormalities are identified in the chest, abdomen, and pelvis. 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 Previously seen subcentimeter pulmonary emboli are not identified on the current study and have largely resolved. 2. Expected evolutionary changes and decrease in size of the subcapsular hematoma at the left kidney. Large 6.9 cm right renal cyst, without change & multiple left renal cysts. 3. Inflamed, torsed epiploic appendage at the anterior margin of the descending colon (epiploic appendagitis). This may be symptomatic. Small fat containing LIH. 4. Choledocholithiasis (4 mm stone). No biliary ductal dilatation. Post CCKY. 5. Prostatomegaly. 6. DJD. T-L scoliosis. Assessment/Plan Assessment/Recommendations: 71-year-old male with extensive past medical and past surgical history, ASHD post IWMI- stent 12/2002, post CABG x 2 05/21/2014 with bovine AVR, transient postop afib (NSR), HTN, HLD, DM, PVD post B/L fempop & R CEA, DENA, hypoT4, Ca2+ nephrolithiasis, DJD, gout, BPH, [facility] for gallstone pancreatitis (c/b bleeding with transfusion then), history of Hepatitis C (reportedly treated in our old office pre-EMR, with what sounds like PEG IFN & Ribaviron; limited old records in outpatient EMR- presumably achieved SVR, but not documented). : HIV- negative. He complained his risk factor for Hep C was that his ex- used IV drugs. *Please note, the patient was hospitalized at [facility] 07/24/16 - 08/03/16 for left flank pain, subcapsular left renal hematoma with retroperitoneal extension (post ASA 325), post 07/24/16: ESWL for left renal stone, c/b EKG changes, elevated troponin, and DE. He was then readmitted to [facility] 08/16/16 - 08/22/16, with acute right-sided pleuritic chest pain and CTA showing bilateral subsegmental PE, with no evidence of right heart strain. *Doppler of LLE was postive for DVT then. The patient was given IV heparin & bridged to Coumadin. IVC filter was recommended by cardiology, in the setting of recent left renal subcapsular hematoma, but it was deemed unnecessary per hematology at that point. Therefore, an IVC filter was not placed. He was discharged on Coumadin 0.5 mg daily and taken off full-strength aspirin. The patient presented to the [facility] ER 10/16/2016 at 2:32 PM, sent in by his PMD for further evaluation of elevated LFTs obtained 2 days SUPERINTENDENT SANITATION and vague abdominal pain. Upon arrival, BP 147/91, P 70, R 18, T 97.9, O2 sat RA 95%. The patient stated he has had chronic intermittent episodes of abdominal pain since the left renal subcapsular hematoma extending to the retroperitoneum 3 months prior, at times epigastric in nature, but currently with bilateral lower abdominal discomfort, radiating to the left flank. At times he also notes vague nonexertional chest pain, with a pressure sensation when driving his car. The symptoms worsened over the past 2 days SUPERINTENDENT SANITATION. The symptoms alternate between dull and sharp in quality, approximately "7 out of 10". He denied any shortness of breath, diaphoresis, pleuritic pain, or hemoptysis. He denied any nausea, vomiting, fevers, chills, jaundice, dark urine, light stool, pruritus, GERD, odynophagia, dysphagia, or early satiety. He claims he lost 30 pounds over the last 3 months since the subcapsular hematoma in 07/2016. He denied any hematemesis, rectal bleeding, or melena. He has a bowel movement daily on MiraLAX. He denied any change in bowel habits. Aside from minimal constipation, he denied any diarrhea, constipation, or tenesmus. There is no family history of GI disease, GI malignancy, or inherited liver disease. With regards to his LFTs, he denied any new outpatient medications. He was on a statin (Crestor), which was held on admission. He had been on this for some time. He had a slightly supratherapeutic INR on admission. *A recent outpatient stress test by Dr. Allison disclosed a small region of ischemia in the inferior wall. The ER initially told the GI service on the evening of 10/16/2016 that the patient was being discharged for outpatient workup, but I found that he was admitted this morning. *The patient's Coumadin was held this admission and he was bridged IV heparin. 11/10/2010: Combined upper endoscopy to the third portion of the duodenum with biopsies, plus colonoscopy to the terminal ileum, with prophylactic clipping x1, plus BICAP polypectomy, in addition to random biopsies at different sites, was performed by myself for questionable melena & questionable rectal bleeding ( brown, OB-negative stool then)- no varices, no portal gastropathy, moderate chronic gastritis, H. pylori negative on biopsies, mild GERD on biopsies without Constantino's or EOE, random biopsies D2/D3-negative; random biopsies of terminal ileum, colon, and rectum- negative, no true polyp tissue in left colon, but rather benign lymphoid aggregate. (*A follow-up colonoscopy was advised in 10 years, as per current average-risk for colon cancer screening guidelines, namely 11/2020). In 11/2010, Prilosec was switched to Prevpac for 14 days, to be followed by [facility], for a 11/15/2010: positive H. pylori antibody. 10/16/2016: Admission labs- WBC 8.9, H/H 16.5/49.6, normal MCV, PLT 225, PTT 35.6, INR 3.43; glucose 93, BUN/Cr 12/0.8, GFR > 60, normal electrolytes, * normal LFTs except alk phos 182, troponin < 0.01 (x 2), BNP 210, normal FT4 with normal TSH 1.42 10/16/2016: Amylase 63, lipase 102, albumin 4.0, globulin 3.1, TBil 0.8, DBil 0.3, *alk phos 347, *AST 174, *ALT 408 (repeat LFTs). 10/17/2016: CBC 7.1, H/H 15.9/40.1, PLT 202, PT 25.4, INR 2.44, PTT 106 (on IV heparin); troponin .03, abdomen 3.4, globulin 2.9, TBil 0.8, DBil 0.2, alk phos 314, AST 95, ALT 293 10/17/2016: U/A- clear, yellow, 1.010, 7.5; otherwise negative (no RBC) 10/17/2016: U Tox- negative 10/16/2016: EKG- NSR @ 72, normal axis, normal intervals, LVH, Q anteroseptal 10/16/2016: CT ABD & PELVIS ANGIOGRAM; CTA CHEST-AORTIC DISSECTION- 1. No evidence of aortic dissection. No acute vascular abnormalities are identified in the chest, abdomen, and pelvis. 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 Previously seen subcentimeter pulmonary emboli are not identified on the current study and have largely resolved. 2. Expected evolutionary changes and decrease in size of the subcapsular hematoma at the left kidney. Large 6.9 cm right renal cyst, without change & multiple left renal cysts. 3. Inflamed, torsed epiploic appendage at the anterior margin of the descending colon (epiploic appendagitis). This may be symptomatic. Small fat containing LIH. 4. Choledocholithiasis (4 mm stone). No biliary ductal dilatation. Post CCKY. 5. Prostatomegaly. 6. DJD. T-L scoliosis. *The patient has a tiny CBD stone. His vague abdominal symptoms and chest symptoms have waxed and waned over the past 3 months, since his left renal subcapsular hematoma extending into the retroperitoneum, which is resolving. I am not convinced his presenting GI symptoms are necessarily from the CBD stone, however this should be removed. He has no signs or symptoms of cholangitis & clinically does not need antibiotics. The epiploic appendagitis seen on CT is probably incidental in nature, as is his small LIH. He did have fluctuating LFTs , which could have been related to the CBD stone. *Please note, he was presumably treated with PEG IFN/Ribaviron for Hep C in 2010, although I do not have any old records substantiating SVR. The relatively recent DE (07/2016) and PE with LLE DVT (08/2016) are noted. *The patient does not have an IVC filter. He was on Coumadin predominantly for the recent PE/LLE DVT, not necessarily for the transient postop afib that he had over a year ago. According to my discussion with Dr. Allison, of cardiology, it is okay to hold his Coumadin for ERCP. However, hematology should see the patient to comment on eventual resumption of Coumadin, especially if a papillotomy is entertained. At the moment, his Coumadin is on hold and he is being bridged with IV heparin. His statins (Crestor), have been held on admission, but this probably has little to do with his LFTs. *SUGGEST: Clears po for now. Serial LFTs & abdomnal exams. Continue IV heparin for now. * Coumadin on hold for now (aim for INR < 1.50). *Hematology consult. Assuming the patient does not develop any signs or symptoms of cholangitis (i.e.- hypotension, confusion, temperature spikes, etc.), plans are for tentative ERCP on 10/19/2016, which will be performed by Dr. Aman Alvares (d/w him), as I do not perform therapeutic biliary endoscopy. *Please call GI sooner if the patient decompensates. The patient will have to be made NPO after 11:59 p.m., on , 10/18/2016, and IV heparin will have to be held at 6 AM on 10/19/2016. *In view of past history of Hep C & elevated LFTs (most probably related to CBD stone), as there is no definite documentation of the patient having achieved SVR after presumed treatment with PEG IFN & Ribaviron, advise checking Hep A Ab, Hep Bs Ag, Hep B core Ab, Hep Bs Ab, quantitative HCV RNA, & HIV. Consider checking RAMANA, AMA, Fe, TIBC, & ferritin. Will defer to cardiology regarding eventual resumption of Crestor. (By dates, the patient is due for follow up surveillance colonoscopy in 11/2020). Consider anti-spasmotics, such as Bentyl. Follow-up with numerous physicians, as listed. The above findings and recommendations were discussed with Dr. Allison & with the medical house staff in great detail. Further recommendations to follow, depending on clinical course. Problem List: 1. Choledocholithiasis 2. Abdominal pain 3. History of hepatitis C 4. Elevated LFTs 5. S/P cholecystectomy 6. Supratherapeutic INR 7. Traumatic perinephric hematoma of left kidney 8. Bilateral pulmonary embolism 9. CAD (coronary artery disease) Copies To: ELENI GARCIA,SAMARA; SHERICE GARCIA,Tressa ANDRADE; ALEXANDER GARCIA,ABDULLAHI; JOE GARCIA,CECILE; JEANNE GARCIA,ALLY; MARTHA GARCIA,J[facility]É [facility]; ALIVIA GARCIA,BEBETO Yancey ; CANDIS GARCIA,HERMAN Janeth; JOSIAH GARCIA PhD,[facility]. Consult Acknowledgment - Thank you for your consult request.
--- NOTE | 2016-10-17 09:25 | Cons- General Surgery ---
General Information and HPI Consulting Request Date of Consult: 10/17/16 Requested By: SAMARA KNOWLES MD History of Present Illness: Patient known to me from previous encounter for inguinal hernia repair. He now presents with recurent abdominal pain, epigastric/periumbilical. Not associated with meals. Prior h/o gallstone pancreatitis and s/p cholecyststectomy 2014. found to have cbd stone on CT associated with elevated LFT's. Also noted to have "epiploic appendigitis" on CT descending colon. Allergies/Medications Allergies: Coded Allergies: NO KNOWN ALLERGIES (07/24/16) Home Med List: Allopurinol 300 MG TABLET 300 MG PO D GOUT (Reported) Alprostadil (Caverject) 20 MCG KIT 20 MCG .ROUTE NEEDED PRN ERECTILE DYSFUNCTION (Reported) INTRACAVERNOSAL Amlodipine Besylate (Norvasc) 10 MG TABLET 10 MG PO HTN HTN (Reported) Reason to Stop at ADM: BP within control, will restart if it goes >120-130 Aspirin (Ecotrin*) 81 MG TABLET.DR 1 TAB PO DAILY HEART/BLOOD (Reported) Chlorthalidone 25 MG TABLET 25 MG PO QAM CARDIAC (Reported) Docusate Sodium (Colace) 100 MG CAPSULE 1 CAP PO DAILY STOOL SOFTENER ( Reported) Ezetimibe (Zetia) 10 MG TABLET 10 MG PO D CHOLESTEROL (Reported) Ferrous Sulfate 325 MG (65 MG IRON) TABLET 325 MG PO BID ANEMIA (Reported) Fluticasone Propionate 50 MCG/ACTUATION SPRAY.SUSP 2 SPRAY NASB DAILY BREATHING (Reported) Gemfibrozil (Lopid) 600 MG TABLET 600 MG PO BID Cholesterol Lactose-Reduced Food (Ensure Liquid) 237 ML LIQUID 1 CAN PO DAILY PRN NUTRITIONAL SUPPLEMENT (Reported) Levothyroxine Sodium 137 MCG TABLET 137 MCG PO QAM HYPOTHYROIDISM (Reported) Magnesium Hydroxide (Milk Of Magnesia) 400 MG/5 ML ORAL.SUSP 5 ML PO BID PRN CONSTIPATION Memantine HCl (Namenda XR) 28 MG CAP.SPR.24 1 CAP PO DAILY MEMORY (Reported) Metoprolol Succinate 25 MG TAB 75 MG PO BID HYPERTENSION Nitroglycerin (Nitroglycerin Patch) 0.4 MG/HOUR PATCH.TD24 0.4 MG TOP DAILY Chest pain Omeprazole 40 MG CAPSULE.DR 40 MG PO D GERD (Reported) Prednisolone Acetate (Omnipred) 1 % DROPS.SUSP 1 GTT OPH DAILY EYE(S) ( Reported) Rosuvastatin Calcium (Crestor) 20 MG TABLET 20 MG PO D CHOLESTEROL (Reported) Sildenafil Citrate (Viagra) 100 MG TABLET 1 TAB PO DAILY NEEDED ERECTILE DYSFUNCTION (Reported) 1 hour before sexual activity Tamsulosin HCl (Flomax) 0.4 MG CAP.ER.24H 0.4 MG PO QPM BPH (Reported) Warfarin Sodium 5 MG TABLET 1 TAB PO AD BLOOD THINNER (Reported) Warfarin Sodium (Coumadin) 2.5 MG TABLET 1 TAB PO QTUES BLOOD THINNER ( Reported) Current Medications: Current Medications Sig/Geri Start time Last Medication Dose Route Stop Time Status Admin Allopurinol 300 MG DAILY 10/17 1000 AC 10/17 PO 1055 Amlodipine Besylate 10 MG DAILY 10/17 1000 AC 10/17 PO 1054 Artificial Tears 2 GTT 4 TIMES/DAY 10/16 2244 AC 10/17 OPH 1054 Aspirin Buffered 81 MG DAILY 10/17 1000 CAN PO Atorvastatin Calcium 80 MG 1700 10/17 1700 CAN PO Chlorthalidone 25 MG QAM 10/17 1000 AC 10/17 PO 1054 Docusate Sodium 100 MG DAILY 10/17 1000 AC 10/17 PO 1054 Ezetimibe 10 MG DAILY 10/17 1000 AC 10/17 PO 1054 Ferrous Sulfate 325 MG BID 10/17 1000 AC 10/17 PO 1054 Fluticasone 2 SPRAY DAILY 10/17 1000 AC 10/17 Propionate JEF 1054 Gemfibrozil 600 MG BID 10/16 2231 AC 10/17 PO 1054 Heparin Sodium 25,000 UNIT Q24H 10/17 0915 AC 10/17 (Porcine) IV 1048 Sodium Chloride 500 ML Ibuprofen 400 MG Q6P PRN 10/16 2230 DC PO Levothyroxine Sodium 0.137 MG 0700 10/17 0700 AC 10/17 PO 0652 Magnesium Hydroxide 5 ML Q12P PRN 10/16 2245 AC PO Memantine 10 MG BID 10/16 2231 AC 10/17 PO 1054 Metoprolol Tartrate 75 MG BID 10/17 1000 AC 10/17 PO 1054 Metoprolol Tartrate 0 .STK-MED ONE 10/16 2340 DC PO Metoprolol Tartrate 75 MG BID 10/16 2230 DC 10/16 PO 2341 Morphine Sulfate 0 .STK-MED ONE 10/16 2240 DC .ROUTE Morphine Sulfate 2 MG Q6-PRN PRN 10/16 2230 AC IV Morphine Sulfate 1 MG ONCE ONE 10/16 2215 DC 10/16 IV 10/16 221 2239 Nitroglycerin 0.4 MG DAILY 10/17 1000 AC 10/17 TOP 1054 Omeprazole 40 MG DAILY AC 10/17 0700 AC 10/17 PO 0652 Omeprazole 0 .STK-MED ONE 10/17 0654 DC PO Oxycodone HCl 5 MG Q6P PRN 10/16 223 AC PO Prednisolone 1 GTT DAILY 10/17 1000 AC 10/17 OPH 1054 Sodium Chloride 1,000 ML .[id number] 10/16 221 AC IV 10/18 0054 Sodium Chloride 1,000 ML ONCE ONE 10/16 1545 DC 10/16 IV 10/17 0504 1546 Tamsulosin HCl 0.4 MG QPM 10/17 2200 AC PO Tramadol HCl 50 MG Q8P PRN 10/17 0230 AC PO Past History Medical History Neurological: CVA EENT: NONE Cardiovascular: aortic stenosis, CAD, hypertension, hyperlipidemia, myocardial infarction, NSTEMI, PVD, syncope, bioprosthetic aortic valve replacement with 2 bypass grafts post-op atrial fibrillation Respiratory: obstructive sleep apnea Gastrointestinal: GERD, incisional hernia inguinal hernia Hepatic: hepatitis C Renal: nephrolithiasis, urinary incontinence, left renal subcapsular hematoma Musculoskeletal: gout, osteoarthritis Psychiatric: NONE Endocrine: diabetes, hypothyroidism Blood Disorders: DVT, PE Cancer(s): NONE 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 MOTHER, , Age 60+; Cause: due to natural causes. SISTER, , Age 40-50; Cause: Breast cancer. FH: breast cancer Relation not specified for: No family history of cardiac disease Psychosocial History Where Do You Live? Home Services at Home: Nursing Smoking Status: Never Smoked ETOH Use: denies use Illicit Drug Use: denies illicit drug use Functional Ability ADLs Independent: dressing, eating, toileting, bathing. Ambulation: independent IADLs Independent: shopping, housework, finances, food prep, telephone, transportation , medication admin. 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 no dysuria, remainder 12 points neg. Exam & Diagnostic Data Vital Signs and I&O Vital Signs Date Time Temp Pulse Resp B/P B/P Pulse O2 O2 Flow FiO2 Mean Ox Delivery Rate 10/18 611 97.5 58 18 142/75 97 Room Air 10/17 0005 98.2 62 20 139/74 94 Room Air 10/16 2343 98.2 72 18 133/71 98 Room Air 10/16 2341 98.2 72 18 133/71 10/16 2201 98.2 62 18 139/74 95 Room Air 10/16 1731 68 18 145/74 95 Room Air 10/16 1545 72 18 136/76 97 Room Air 10/16 1442 97.9 70 18 147/91 95 Room Air Intake & Output 10/17 1600 10/17 0800 10/17 0000 10/16 1600 10/16 0800 10/16 0000 Intake Total 1500 Output Total 200 Balance 1300 Intake, IV 1500 Output, Urine 200 Patient 200 lb 200 lb Weight Weight Reported by Patient Measurement Method Physical Exam: Gen: looks well, stated age. nad. heent: anicteric, mmm, eomi neck: supple no adenopathy or jvd abd: tender periumbilical, epigastric and L abdomen ext: no edema, c/c Last 24 Hours of Labs: Laboratory Tests 10/17 10/17 10/16 0604 0600 1841 Chemistry Sodium (137 - 145 mmol/L) 139 Potassium (3.5 - 5.1 mmol/L) 4.0 Chloride (98 - 107 mmol/L) 100 Carbon Dioxide (22 - 30 mmol/L) 30 Anion Gap (5 - 16) 9 BUN (9 - 20 mg/dL) 14 Creatinine (0.7 - 1.2 mg/dL) 0.7 Estimated GFR (>60 ml/min) > 60 BUN/Creatinine Ratio (7 - 25 %) 20.0 Total Bilirubin (0.2 - 1.3 mg/dL) 0.8 Direct Bilirubin (< 0.4 mg/dL) 0.2 AST (17 - 59 U/L) 95 H ALT (21 - 72 U/L) 293 H Alkaline Phosphatase (< 127 U/L) 314 H Troponin I (<0.11 ng/ml) 0.03 Cancelled < 0.01 Total Protein (6.3 - 8.2 g/dL) 6.3 Albumin (3.5 - 5.0 g/dL) 3.4 L Coagulation PT (9.4 - 12.5 SEC) 25.4 H INR (0.90 - 1.17) 2.44 H Hematology CBC w Diff NO MAN DIFF REQ WBC (4.8 - 10.8 /CUMM) 7.1 RBC (4.70 - 6.10 /CUMM) 5.77 Hgb (14.0 - 18.0 G/DL) 15.9 Hct (42 - 52 %) 48.1 MCV (80.0 - 94.0 FL) 83.4 MCH (27.0 - 31.0 PG) 27.6 RDW (11.5 - 14.5 %) 15.8 H Plt Count (130 - 400 /CUMM) 202 MPV (7.4 - 10.4 FL) 7.4 Gran % (42.2 - 75.2 %) 54.6 Lymphocytes % (20.5 - 51.1 %) 34.2 Monocytes % (1.7 - 9.3 %) 9.8 H Eosinophils % (0 - 5 %) 0.9 Basophils % (0.0 - 2.0 %) 0.5 Absolute Granulocytes (1.4 - 6.5 /CUMM) 3.9 Absolute Lymphocytes (1.2 - 3.4 /CUMM) 2.4 Absolute Monocytes (0.10 - 0.60 /CUMM) 0.7 H Absolute Eosinophils (0.0 - 0.7 /CUMM) 0.1 Absolute Basophils (0.0 - 0.2 /CUMM) 0 PUBS MCHC (33.0 - 37.0 G/DL) 33.1 / 1457 Chemistry Sodium (137 - 145 mmol/L) 139 Potassium (3.5 - 5.1 mmol/L) 4.3 Chloride (98 - 107 mmol/L) 97 L Carbon Dioxide (22 - 30 mmol/L) 32 H Anion Gap (5 - 16) 10 BUN (9 - 20 mg/dL) 18 Creatinine (0.7 - 1.2 mg/dL) 0.7 Estimated GFR (>60 ml/min) > 60 BUN/Creatinine Ratio (7 - 25 %) 25.7 H Glucose (65 - 99 mg/dL) 101 H Calcium (8.4 - 10.2 mg/dL) 9.5 Total Bilirubin (0.2 - 1.3 mg/dL) 0.8 Direct Bilirubin (< 0.4 mg/dL) 0.3 AST (17 - 59 U/L) 174 H ALT (21 - 72 U/L) 408 H Alkaline Phosphatase (< 127 U/L) 347 H Troponin I (<0.11 ng/ml) 0.01 Total Protein (6.3 - 8.2 g/dL) 7.1 Albumin (3.5 - 5.0 g/dL) 4.0 Globulin (1.9 - 4.2 gm/dL) 3.1 Albumin/Globulin Ratio (1.1 - 2.2 %) 1.3 Amylase (30 - 110 U/L) 63 Lipase (23 - 300 U/L) 102 Coagulation PT (9.4 - 12.5 SEC) 35.6 H INR (0.90 - 1.17) 3.43 H Hematology CBC w Diff NO MAN DIFF REQ WBC (4.8 - 10.8 /CUMM) 8.9 RBC (4.70 - 6.10 /CUMM) 5.95 Hgb (14.0 - 18.0 G/DL) 16.5 Hct (42 - 52 %) 49.6 MCV (80.0 - 94.0 FL) 83.3 MCH (27.0 - 31.0 PG) 27.7 RDW (11.5 - 14.5 %) 15.8 H Plt Count (130 - 400 /CUMM) 225 MPV (7.4 - 10.4 FL) 7.2 L Gran % (42.2 - 75.2 %) 65.9 Lymphocytes % (20.5 - 51.1 %) 22.9 Monocytes % (1.7 - 9.3 %) 9.1 Eosinophils % (0 - 5 %) 1.4 Basophils % (0.0 - 2.0 %) 0.7 Absolute Granulocytes (1.4 - 6.5 /CUMM) 5.9 Absolute Lymphocytes (1.2 - 3.4 /CUMM) 2.0 Absolute Monocytes (0.10 - 0.60 /CUMM) 0.8 H Absolute Eosinophils (0.0 - 0.7 /CUMM) 0.1 Absolute Basophils (0.0 - 0.2 /CUMM) 0.1 PUBS MCHC (33.0 - 37.0 G/DL) 33.3 Imaging Results: /CT abd/pelvis with iv contrast 10/16/16 reviewed. There is a solitary calcified stone in distal cbd without obstruction. There is a tiny focus of inflammation descending colon. Assessment/Plan Assessment/Plan Choledocholithiasis s/p laparoscopic cholecystectomy in 2015 ([facility]). Represents retained stone and defer management (ERCP) to GI. It is likely the cause of his abdominal pain. No role for surgery at this point. ?epiploic appendigitis descending colon vs tiny area of focal diverticulitis. Recommend medical management. It does not appear to be of anything clinically significant. It can be safely observed for now with serial abdominal examinations. Copies To: ALEXANDER GARCIA,ABDULLAHI Consult Acknowledgment - Thank you for your consult request.
--- NOTE | 2016-10-17 12:40 | PN- Cardiology ---
Subjective Subjective: * Patient feels much improved. No chest discomfort or shortness of breath. His abdomen is lead oxide mill tender to palpation. * The patient is on anticoagulation for a pulmonary embolism noted this past August. He also had paroxysmal atrial fibrillation after his heart surgery which is not an active issue and which does not, in itself, require chronic anticoagulation. His heart valve is bioprosthetic. * Increased hepatic transaminases noted with ductal stones Objective Vital Signs and I&Os Vital Signs Date Time Temp Pulse Resp B/P B/P Pulse O2 O2 Flow FiO2 Mean Ox Delivery Rate 10/17 1054 58 142/75 05/ 0612 97.5 58 18 142/75 97 Room Air 10/17 0005 98.2 62 20 139/74 94 Room Air 10/16 2343 98.2 72 18 133/71 98 Room Air 10/16 2341 98.2 72 18 133/71 / 2201 98.2 62 18 139/74 95 Room Air / 1731 68 18 145/74 95 Room Air 10/16 1545 72 18 136/76 97 Room Air 10/16 1442 97.9 70 18 147/91 95 Room Air Intake & Output 10/17 1600 10 0800 10/17 0000 / 1600 10/16 0800 05/ 0000 Intake Total 1500 Output Total 200 Balance 1300 Intake, IV 1500 Output, Urine 200 Patient 200 lb 200 lb Weight Weight Reported by Patient Measurement Method Physical Exam: General: WD/ WN male in NAD; alert and oriented x 3 Heart RRR with 3/6 systolic murmur Lungs: clear bilaterally Abdomen: soft, mildly tender, +ve bowel sounds Extremities: no edema Assessment/Plan Assessment/Plan * This patient is on chronic anticoagulation for a PE noted this past August. This patient has had significant weight loss as well. In regard to his increased LFT's I would stop his statin for now and an ERCP is anticipated on Saturday. Anticoagulation can be temporarily stopped in anticipation of this procedure. * No current evidence of myocardial ischemia or decompensated CHF. Continue telemetry? Yes
[2016-10-17 15:00] VITALS: BP 122/80
[2016-10-17 19:58] LABS: PTT 106 SEC (25-37)
[2016-10-17 21:21] VITALS: BP 130/78
[2016-10-18 03:12] LABS: PTT 74 SEC (25-37)
[2016-10-18 06:05] VITALS: BP 128/72
--- NOTE | 2016-10-18 07:21 | PN- Housestaff ---
SINTIA GARCIA,[facility] 10/18/16 0721: Subjective Follow-up For: Choledocholithiasis Epipploic Appendagitis Supratherapeutic INR with H/O of DVT/PE Subacute Subcapsular Hematoma Subjective: Lying down comfortably in bed. Was seen by the Business Operations Consultant this AM. States that his left side was hurting him last night, but was controlled by motrin. Right sided pain has resolved. Review of Systems Constitutional: Reports: see HPI. Objective Last 24 Hrs of Vital Signs/I&O Vital Signs Date Time Temp Pulse Resp B/P B/P Pulse O2 O2 Flow FiO2 Mean Ox Delivery Rate 10/18 0605 98.1 56 20 128/72 93 Room Air 10/17 2121 98.3 64 16 130/78 96 Room Air 10/17 2110 64 130/78 10/17 1500 98.0 70 20 122/80 98 Room Air 10/17 1054 58 142/75 Intake & Output 10/18 0800 10/18 0000 10/17 1600 Intake Total 600 240 Output Total 200 750 300 Balance -200 -150 -60 Intake, IV 600 Intake, Oral 240 Number 1 Bowel Movements Output, Urine 200 750 300 Physical Exam General Appearance: Alert, Oriented X3, Cooperative, No Acute Distress Cardiovascular: Regular Rate, Normal S1, Normal S2 Lungs: Clear to Auscultation, Normal Air Movement Abdomen: tenderness present on the left side of the abdomen, no rebound or guarding noted. There is no tenderness present in the RUQ. Neurological: Normal Speech, Strength at 5/5 X4 Ext, Normal Tone, Sensation Intact Extremities: No Edema Current Medications: Current Medications Sig/Geri Start time Last Medication Dose Route Stop Time Status Admin Allopurinol 300 MG DAILY 10/17 1000 AC 10/17 PO 1055 Amlodipine Besylate 10 MG DAILY 10/17 1000 AC 10/17 PO 1054 Artificial Tears 2 GTT 4 TIMES/DAY 10/16 2244 AC 10/17 OPH 2106 Chlorthalidone 25 MG QAM 10/17 1000 AC 10/17 PO 1054 Dicyclomine HCl 20 MG 4 TIMES/DAY PRN 10/17 2215 AC PO Docusate Sodium 100 MG DAILY 10/17 1000 AC 05/10 PO 1054 Ezetimibe 10 MG DAILY 10/17 1000 AC 10/17 PO 1054 Ferrous Sulfate 325 MG BID 05/10 1000 AC 10/17 PO 2110 Fluticasone 2 SPRAY DAILY 10/17 1000 AC 10/17 Propionate JEF 1054 Gemfibrozil 600 MG BID 10/16 2231 AC 10/17 PO 2110 Heparin Sodium 25,000 UNIT Q24H 10/17 0915 AC 10/17 (Porcine) IV 10/19 0600 211 Sodium Chloride 500 ML Levothyroxine Sodium 0.137 MG 0700 10/17 0700 AC 10/18 PO 0621 Magnesium Hydroxide 5 ML Q12P PRN 10/16 2245 AC PO Memantine 10 MG BID 10/16 2231 AC 10/17 PO 210 Metoprolol Tartrate 75 MG BID 10/17 1000 AC 10/17 PO 2109 Morphine Sulfate 2 MG Q6-PRN PRN 10/16 2230 AC IV Nitroglycerin 0.4 MG DAILY 10/17 1000 AC 10/17 TOP 1054 Omeprazole 40 MG DAILY AC 10/17 0700 AC 10/18 PO 0620 Oxycodone HCl 5 MG .STK-MED ONE 10/17 2149 DC PO 10/17 215 Oxycodone HCl 5 MG Q6P PRN 10/16 2230 AC 10/17 PO 2150 Prednisolone 1 GTT DAILY 10/17 1000 AC 10/17 OPH 1054 Sodium Chloride 1,000 ML .[id number] 10/16 2215 DC 10/17 IV 10/18 0054 2106 Tamsulosin HCl 0.4 MG QPM 10/17 2200 AC 10/17 PO 2110 Tramadol HCl 50 MG Q8P PRN 10/17 0230 AC 10/17 PO 2338 Last 24 Hrs of Lab/Gregory Results Last 24 Hrs of Labs/Mics: Laboratory Tests 10/18/16 0640: Sodium Pending, Potassium Pending, Chloride Pending, Carbon Dioxide Pending, Anion Gap Pending, BUN Pending, Creatinine Pending, BUN/Creatinine Ratio Pending , Total Bilirubin Pending, Direct Bilirubin Pending, AST Pending, ALT Pending, Alkaline Phosphatase Pending, Total Protein Pending, Albumin Pending, PT Pending , INR Pending, CBC w Diff Pending, WBC Pending, RBC Pending, Hgb Pending, Hct Pending, MCV Pending, MCH Pending, RDW Pending, Plt Count Pending, MPV Pending, PUBS MCHC Pending 10/18/16 0150: APTT 74 H 10/17/16 1900: APTT 106 *H 10/17/16 1823: Urine Opiates Screen 148.00, Methadone Screen < 40, Barbiturate Screen < 60, Ur Phencyclidine Scrn < 6.00, Amphetamines Screen < 100, U Benzodiazepines Scrn < 85, Urine Cocaine Screen < 50, Urine Cannabis Screen < 5.00, Urine Color YEL, Urine Clarity CLEAR, Urine pH 7.5, Ur Specific [place] 1.010, Urine Protein NEG, Urine Ketones NEG, Urine Nitrite NEG, Urine Bilirubin NEG, Urine Urobilinogen 0.2, Ur Leukocyte Esterase NEG, Ur Microscopic EXAM NOT REQUIRED, Urine Hemoglobin NEG, Urine Glucose NEG Lines/Diet/Fluids Lines: peripheral lines Assessment/Plan Assessment: 71 y/o M qith PMH of HTN, CAD s/p stent and 2 vessel CABG, bioprosthetic AVR, DENA on CPAP, HTN and recent hospitalization for subcapsular and RP hematoma s/p ESWL, now on Coumadin for DVT, who presents to the ED with abnormal LFT's noted by his PCP. He did experience some epigastric and RUQ pain over the last 48 hours. CTA A/P showed thr presence of choledocholithiasis with no biliary duct dilation and torsed epiploic appendagitis. Trops x 3 were negative. Problem List: 1) Choledocholithiasis with elevated LFT's 2) CTA A/P showing epiploic appendagitis. 3) H/O CAD s/p CABG with recent stress test showing the presence of small region of ischemia in the inferior wall. 4) Bioprosthetic AVR 5) H/O DVT/PE on Coumadin 5) DENA on CPAP 6) HTN Plan: * Monitor on GM * Patient has been seen by GI, scheduled for an ERCP to be done on 10/19. Monitor LFT's till then. LFT's currently trending down, with resolution of RUQ pain. * Currently on IV heparin per Cardiology for high risk, till the procedure. Check INR in AM. * Continue other home medications for now. * NPO past midnight, tomorrow night, for procedure on 10/19. * Pain Management: Currently on Morphine 2 mg Q6PRN IV and Roxicodone 5 mg Q6P. Well controlled. continue for now. * DVT PPx: Heparin gtt * Code Status: Full Code. Problem List: 1. Epiploic appendagitis 2. Elevated LFTs Pain Ratin Pain Location: Left side of the abdomen Pain Goal: Pain 4 or less Pain Plan: Per EMR Tomorrow's Labs & Rationales: CBC, INR, LFT DVT/Prophylaxis: pharmacological SAMARA KNOWLES MD 10/18/16 1028: Attending MD Review Statement Attending Statement Attending MD Statement: examined this patient, discuss w/resident/PA/HARDWARE ASSEMBLER, agreed w/resident/PA/HARDWARE ASSEMBLER, reviewed EMR data (avail) Attending Assessment/Plan: 71M PMH HTN, CAD s/p stent and 2 vessel CABG, bioprosthetic AVR, DENA on CPAP, HTN and recent hospitalization for subcapsular and RP hematoma s/p ESWL, now on Coumadin for DVT admitted for severe abdominal pain with choledocholithiasis on imaging with transaminitis. Patient reports pain is improved but still present. Afebrile, normal WBC, no evidence of cholangitis. 1. Choledocholithiasis 2. Transaminitis 3. Bioprosthetic aortic valve replacement 4. History of DVT 5. History of CAD Plan - Continue on general medicine - Will go for ERCP tomorrow - NPO after midnight - Clear liquid diet today - Heparin drip until procedure - Daily INR, restart Coumadin after procedure - Daily LFTs - Follow GI recommendations - Continue home medications - May stop Gemfibrozil until after procedure (may worsen transaminitis) - DVT PPx
[2016-10-18 07:45] LABS: ABSOLUTE BASOPHIL COUNT 0 /CUMM (0.0-0.2); ABSOLUTE EOSINOPHIL COUNT 0.1 /CUMM (0.0-0.7); ABSOLUTE GRANULOCYTE CT 2.9 /CUMM (1.4-6.5); ABSOLUTE LYMPH COUNT 2.4 /CUMM (1.2-3.4); ABSOLUTE MONOCYTE COUNT 0.6 /CUMM (0.10-0.60); BASOPHIL % 0.6 % (0.0-2.0); EOSINOPHIL % 1.2 % (0-5); GRANULOCYTE % 48.5 % (42.2-75.2); HEMATOCRIT 46.1 % (42-52); MEAN CORPUSCULAR HGB 27.8 PG (27.0-31.0); MEAN CORPUSCULAR HGB CONC 33.3 G/DL (33.0-37.0); MEAN CORPUSCULAR VOLUME 83.5 FL (80.0-94.0); MEAN PLATELET VOLUME 7.6 FL (7.4-10.4); PLATELET COUNT 181 /CUMM (130-400); RBC DISTRIBUTION WIDTH 15.9 % (11.5-14.5); RED BLOOD CELL CT 5.52 /CUMM (4.70-6.10)
--- NOTE | 2016-10-18 08:05 | Discharge Summary ---
Visit Information Visit Dates Admission Date: 10/16/16 Discharge Date: 10/26/2016 Hospital Course Course Attending Physician: SAMARA KNOWLES MD Primary Care Physician: ABDULLAHI MUNOZ MD Consulting Request: Consulting Specialty: Gastroenterology Consulting Physician: Dr. Smith [facility] Hospital Course: Mr. Soriano is a 71 y/o M with PMHx of CAD s/p CABG, acute gallstone pancreatitis s/p cholecystectomy and bilateral subsegmental PE who is sent in from his primary care physician's office for further evaluation of elevated LFTs and epigastric pain. Following an episode of acute gallstone pancreatitis in January 2015, patient underwent open cholecystectomy as he reportedly developed bleeding during the laparoscopic procedure. Of note, patient was hospitalized on 07/24/16 with a left renal subcapsular hematoma with extension to the retroperitoneum after ESWL procedure. On 08/16/16 patient was found to have bilateral PE and LLE DVT and was subsequently started on warfarin. Vitals 97.9, heart rate 70, respiratory rate 18, BP 147/91 saturating 95% on room air. Physical exam as dictated above with note of tenderness to palpation in the upper abdomen and epigastric region. No CVA tenderness noted bilaterally. EKG revealed normal sinus rhythm at 72 bpm, with signs of LVH. Q waves noted in the inferior leads and T-wave flattening/inversion in V3 to V5, unchanged. Labs show white blood cell count 8.9, H&H 16.5/49.6. AST/frailty 174/408, alkaline phosphatase 347. Pertinent imaging: No pulmonary embolism. Choledocholithiasis without dilatation of the biliary system noted. He was admitted to the general medicine floor with the following issues: 1) Choledocholithiaisis: LFT were initially elevated, but started to trend down on Day 2 of admission. He was seen by GI, and scheduled for an ERCP. He was maintained of a liquid diet for the procedure. In view of his elevated LFT's, home statin was held. He underwent an ERCP on 10/19/2016, which showed Choledocholithiasis with Sphincteroplasty performed; stone extracted. 2) CAD s/p CABG and stenting: He had a recent outpatient stress done done by Dr. Allison, which revealed the presence of mild ischemia. Considering his increased cardiovascular risk, a cardiology consult was placed. Trops x 3 were negative and further management per cardiology of his ischemia, was medical. 3) H/O PE on Coumadin with supratherapeutic INR on admission: As INR was supratherapetic, his coumadin was held initially. Hematology was further consulted, as the patient was high risk for further complications from clotting in the setting of his current right renal subcapsular hematoma. He was then started on IV Heparin till the procedure. His INR continued to trend down during the hospital stay. After the ERCP, he was restarted on home coumadin for bridging and discharged when his INR was 1.96, on 5 mg of Coumadin with plans to check INR on 10/29 and weekly thereafter. 4) He was continued on his home medications except for his statin 2/2 elevated LFT's. 5) DVT PPx: IV Heparin and Coumadin 6) Code Status: Full Code Allergies: Coded Allergies: NO KNOWN ALLERGIES (07/24/16) Significant Procedures: Patient underwent an ERCP on 10/19/2016, which showed: Impression: * Choledocholithiasis * Sphincteroplasty performed; stone extracted Recommendations: * Because of post-sphincteroplasty bleeding, would not start heparin for 12 hours. Following this, would wait at least 24 more hours with careful observation for bleeding (CBC, vital signs, development of melena, etc.) prior to consideration for oral anticoagulation. * Clear liquid diet today, advance to regular tomorrow * Follow-up liver enzymes and CBC tomorrow and on Saturday Pertinent Lab Results: Vital Signs Date Time Temp Pulse Resp B/P B/P Pulse O2 O2 Flow FiO2 Mean Ox Delivery Rate 10/26 0613 98.3 70 18 122/82 95 Room Air 10/26 0058 78 92 10/26 0000 93 CPAP 10/25 2241 97.8 65 19 142/80 93 Room Air 10/25 2056 69 140/80 10/25 1529 98.1 66 20 126/78 95 Room Air 10/25 1112 81 142/90 10/25 0731 97.9 81 18 116/78 93 Room Air 10/25 0012 78 93 10/24 2244 98.8 68 20 136/78 95 Room Air 10/24 1433 98.4 68 20 132/70 93 Room Air 10/24 0944 60 120/76 10/24 0703 98.1 60 20 120/76 94 Room Air 05/17 0014 69 92 05/16 2300 68 95 05/16 2226 98.3 71 20 144/80 93 Room Air 05/16 2157 70 144/80 05/16 1507 98.2 65 20 136/82 93 Room Air 05/16 0615 98.0 64 20 160/90 95 CPAP 05/16 0554 169/90 05/15 2300 97.8 74 20 132/73 94 Room Air 05/15 2205 74 132/73 05/15 1441 97.8 75 20 124/80 95 Room Air 05/15 0947 73 120/78 05/15 0646 98.0 73 20 120/78 92 CPAP 05/15 0131 87 93 05/14 2239 98.0 82 20 135/85 95 Room Air 05/14 2238 135/85 05/14 1520 97.5 84 20 140/80 96 Room Air 05/14 0918 57 132/72 05/14 0648 97.7 57 18 132/72 93 Room Air 05/14 0010 65 93 05/13 2305 97.8 64 20 124/70 94 Room Air 05/13 2117 68 148/80 05/13 1504 98.3 62 18 124/70 93 Room Air 05/13 1353 Room Air 05/13 1038 65 146/78 05/13 0722 98.9 64 18 138/76 94 Room Air 05/12 2232 84 138/78 05/12 2230 98.8 84 18 138/78 92 Room Air 05/12 1827 98.1 71 18 156/78 92 Room Air 05/12 1507 98.1 73 18 135/79 92 Room Air 05/12 1101 74 140/84 05/12 0742 98.2 74 18 140/84 93 Room Air 05/11 2234 98.4 65 18 129/73 92 Room Air 05/11 2047 66 130/73 05/11 1415 97.5 63 20 120/80 94 Room Air 05/11 0605 98.1 56 20 128/72 93 Room Air 05/10 2121 98.3 64 16 130/78 96 Room Air 05/10 2110 64 130/78 05/10 1500 98.0 70 20 122/80 98 Room Air 05/10 1054 58 142/75 05/10 0612 97.5 58 18 142/75 97 Room Air 05/10 0005 98.2 62 20 139/74 94 Room Air 10/16 2343 98.2 72 18 133/71 98 Room Air 10/16 2341 98.2 72 18 133/71 10/16 2201 98.2 62 18 139/74 95 Room Air 10/16 1731 68 18 145/74 95 Room Air 10/16 1545 72 18 136/76 97 Room Air 10/16 1442 97.9 70 18 147/91 95 Room Air Last 24 Hours I&Os 10/26 1600 10/26 0800 10/26 0000 Intake Total 300 330 Output Total 300 350 Balance 0 -20 Intake, IV 180 90 Intake, Oral 120 240 Number 0 0 Bowel Movements Output, Urine 300 350 Laboratory Tests 10/26/16 0616: PT 20.4 H, INR 1.96 H, CBC w Diff NO MAN DIFF REQ, RBC 6.10, MCV 83.0, MCH 28.0, RDW 16.0 H, MPV 7.7, Gran % 49.1, Lymphocytes % 38.7, Monocytes % 10.2 H , Eosinophils % 1.4, Basophils % 0.6, Absolute Granulocytes 3.5, Absolute Lymphocytes 2.8, Absolute Monocytes 0.7 H, Absolute Eosinophils 0.1, Absolute Basophils 0, PUBS MCHC 33.8 10/25/16 2322: APTT 64 H 10/25/16 1615: APTT 57 H Orders Procedure Date/time Status PARTIAL THROMBOPLASTIN TIME 10/26 1100 Active PROTHROMBIN TIME 10/26 0600 Complete CBC WITHOUT DIFFERENTIAL 10/26 0600 Complete PARTIAL THROMBOPLASTIN TIME 10/25 2300 Complete PARTIAL THROMBOPLASTIN TIME 10/25 1530 Complete PARTIAL THROMBOPLASTIN TIME 10/25 0930 Complete PROTHROMBIN TIME 10/25 0920 Complete BASIC ELECTROLYTES PLUS BUN&CR 10/25 0759 Complete Lab Add-on Test 10/25 UNK Active Anticipated Discharge 10/25 UNK Active PARTIAL THROMBOPLASTIN TIME 10/24 2130 Complete PARTIAL THROMBOPLASTIN TIME 10/24 0720 Complete HEPATIC FUNCTION PANEL 10/24 0632 Complete PROTHROMBIN TIME 10/24 0600 Complete BASIC ELECTROLYTES PLUS BUN&CR 10/24 0600 Complete CONTIN. POS. AIRWAY PRESS. CHG 10/24 UNK Complete Lab Add-on Test 10/24 UNK Active Nursing Misc 10/24 UNK Complete PARTIAL THROMBOPLASTIN TIME 10/23 1920 Complete CONTIN. POS. AIRWAY PRESS. G 10/23 UNK Complete KIDNEY STONE ANALYSIS Ref$ 10/19 1300 Active Vital Signs Date Time Temp Pulse Resp B/P B/P Pulse O2 O2 Flow FiO2 Mean Ox Delivery Rate 10/26 0613 98.3 70 18 122/82 95 Room Air 10/26 0058 78 92 05/ 0000 93 CPAP 10/25 2241 97.8 65 19 142/80 93 Room Air 10/25 2056 69 140/80 05 1529 98.1 66 20 126/78 95 Room Air 10/25 1112 81 142/90 05 0731 97.9 81 18 116/78 93 Room Air 10/25 0012 78 93 05/ 2244 98.8 68 20 136/78 95 Room Air 10/24 1433 98.4 68 20 132/70 93 Room Air 10/24 0944 60 120/76 / 0703 98.1 60 20 120/76 94 Room Air 10/24 0014 69 92 05/ 2300 68 95 10/23 2226 98.3 71 20 144/80 93 Room Air 10/23 2157 70 144/80 / 1507 98.2 65 20 136/82 93 Room Air 16 0615 98.0 64 20 160/90 95 CPAP / 0554 169/90 05/ 2300 97.8 74 20 132/73 94 Room Air / 2205 74 132/73 /15 1441 97.8 75 20 124/80 95 Room Air 15 0947 73 120/78 05/15 0646 98.0 73 20 120/78 92 CPAP 10/22 0131 87 93 10/21 2239 98.0 82 20 135/85 95 Room Air 05/14 2238 135/85 05/14 1520 97.5 84 20 140/80 96 Room Air 0514 0918 57 132/72 05/14 0648 97.7 57 18 132/72 93 Room Air 05/14 0010 65 93 05/ 2305 97.8 64 20 124/70 94 Room Air 10/20 2117 68 148/80 05/ 1504 98.3 62 18 124/70 93 Room Air 05 1353 Room Air 05 1038 65 146/78 05/ 0722 98.9 64 18 138/76 94 Room Air 05 2232 84 138/78 05 2230 98.8 84 18 138/78 92 Room Air 10/19 1827 98.1 71 18 156/78 92 Room Air 10/19 1507 98.1 73 18 135/79 92 Room Air 10/19 1101 74 140/84 05 0742 98.2 74 18 140/84 93 Room Air 10/18 2234 98.4 65 18 129/73 92 Room Air 10/18 2047 66 130/73 05/ 1415 97.5 63 20 120/80 94 Room Air 10/18 0605 98.1 56 20 128/72 93 Room Air 05 2121 98.3 64 16 130/78 96 Room Air 05 2110 64 130/78 05/ 1500 98.0 70 20 122/80 98 Room Air 05 1054 58 142/75 05/ 0612 97.5 58 18 142/75 97 Room Air 05/ 0005 98.2 62 20 139/74 94 Room Air 05 2343 98.2 72 18 133/71 98 Room Air 05 2341 98.2 72 18 133/71 05/ 2201 98.2 62 18 139/74 95 Room Air 05/ 1731 68 18 145/74 95 Room Air 05 1545 72 18 136/76 97 Room Air 10/16 1442 97.9 70 18 147/91 95 Room Air Laboratory Tests 10/26/16 0616: PT 20.4 H, INR 1.96 H, CBC w Diff NO MAN DIFF REQ, RBC 6.10, MCV 83.0, MCH 28.0, RDW 16.0 H, MPV 7.7, Gran % 49.1, Lymphocytes % 38.7, Monocytes % 10.2 H , Eosinophils % 1.4, Basophils % 0.6, Absolute Granulocytes 3.5, Absolute Lymphocytes 2.8, Absolute Monocytes 0.7 H, Absolute Eosinophils 0.1, Absolute Basophils 0, PUBS MCHC 33.8 10/25/16 2322: APTT 64 H 10/25/16 1615: APTT 57 H Orders Procedure Date/time Status PARTIAL THROMBOPLASTIN TIME 10/26 1100 Active PROTHROMBIN TIME 10/26 0600 Complete CBC WITHOUT DIFFERENTIAL 10/26 06 Complete PARTIAL THROMBOPLASTIN TIME 10/25 2300 Complete PARTIAL THROMBOPLASTIN TIME 10/25 1530 Complete PARTIAL THROMBOPLASTIN TIME 10/25 0930 Complete PROTHROMBIN TIME 10/25 0920 Complete BASIC ELECTROLYTES PLUS BUN&CR 10/25 0759 Complete Lab Add-on Test 10/25 UNK Active Anticipated Discharge 10/25 UNK Active PARTIAL THROMBOPLASTIN TIME 10/24 2130 Complete PARTIAL THROMBOPLASTIN TIME 10/24 0720 Complete HEPATIC FUNCTION PANEL 10/24 0632 Complete PROTHROMBIN TIME 10/24 0600 Complete BASIC ELECTROLYTES PLUS BUN&CR 10/24 0600 Complete CONTIN. POS. AIRWAY PRESS. CHG 10/24 UNK Complete Lab Add-on Test 10/24 UNK Active Nursing Misc 10/24 UNK Complete PARTIAL THROMBOPLASTIN TIME 10/23 1920 Complete CONTIN. POS. AIRWAY PRESS. CHG 10/23 UNK Complete KIDNEY STONE ANALYSIS Ref$ 10/19 1300 Active Disposition Summary Disposition Principal Diagnosis: Choledocholithiaisis Epiploic Appendagitis Supratherapeutic INR Additional Diagnosis: CAD s/p CABG and stenting HLD H/O DVT and PE on Coumadin Gout GERd Hypothyroidism HTN Impaired memory Discharge Disposition: home health services Discharge Instructions General Discharge Information Code Status: Full Code Patient's Diet: Heart Healthy Patient's Activity: As tolerated Follow-Up Instructions/Appts: Please make an appointment to see: 1) Your PCP within one week from discharge 2) Dr. Smith within one week from discharge 3) Dr. Allison within one week from discharge 4) Dr. Mendoza within one week from discharge. Please check INR on 10/29 and then weekly thereafter. Please CC results to Dr. Munoz. Please stop using the statin, because you have elevated liver function tests at the time of admission. Please consult your PCP before restarting this medication. Medications at Discharge Discharge Medications: Stop taking the following medications: Rosuvastatin Calcium (Crestor) 20 MG TABLET ORAL Every Day Warfarin Sodium (Coumadin) 2.5 MG TABLET ORAL EVERY SATURDAY Continue taking these medications: Docusate Sodium (Colace) 100 MG CAPSULE 1 Capsule ORAL DAILY Comments: Last Taken: 10/26/16 Time: 09:30 AM Prednisolone Acetate (Omnipred) 1 % DROPS.SUSP 1 Drop In the eye DAILY Comments: NOT GIVEN IN HOSPITAL Lactose-Reduced Food (Ensure Liquid) 237 ML LIQUID 1 Can ORAL DAILY as needed for NUTRITIONAL SUPPLEMENT Comments: NOT GIVEN IN HOSPITAL Allopurinol (Allopurinol) 300 MG TABLET 300 Milligram ORAL Every Day Comments: Last Taken: 10/26/16 Time: 09:30 AM Levothyroxine Sodium (Levothyroxine Sodium) 137 MCG TABLET 137 Microgram ORAL Every Morning Comments: Last Taken: 10/26/16 Time: 07:00 AM Omeprazole (Omeprazole) 40 MG CAPSULE.DR 40 Milligram ORAL Every Day Comments: Last Taken: 10/26/16 Time: 07:00 AM Ezetimibe (Zetia) 10 MG TABLET 10 Milligram ORAL Every Day Comments: Last Taken: 10/26/16 Time: 09:30 AM Chlorthalidone (Chlorthalidone) 25 MG TABLET 25 Milligram ORAL Every Morning Comments: Last Taken: 10/26/16 Time: 09:30 AM Tamsulosin HCl (Flomax) 0.4 MG CAP.ER.24H 0.4 Milligram ORAL Every night Comments: Last Taken: 10/25/16 Time: 8:30 PM Amlodipine Besylate (Norvasc) 10 MG TABLET 10 Milligram ORAL HTN Instructions: Reason to Stop at ADM: BP within control, will restart if it goes >120-130 Comments: Last Taken: 10/26/16 Time: 09:30 AM Ferrous Sulfate (Ferrous Sulfate) 325 MG (65 MG IRON) TABLET 325 Milligram ORAL TWICE DAILY Comments: Last Taken: 10/26/16 Time: 09:30 AM Alprostadil (Caverject) 20 MCG KIT 20 Microgram Route NEEDED as needed for ERECTILE DYSFUNCTION Instructions: INTRACAVERNOSAL Comments: NOT GIVEN IN HOSPITAL Fluticasone Propionate (Fluticasone Propionate) 50 MCG/ACTUATION SPRAY.SUSP 2 Spurger Both sides of nose DAILY Comments: Last Taken: 10/26/16 Time: 09:30 AM Sildenafil Citrate (Viagra) 100 MG TABLET 1 Tablet ORAL DAILY NEEDED Instructions: 1 hour before sexual activity Comments: NOT GIVEN IN HOSPITAL Memantine HCl (Namenda XR) 28 MG CAP.SPR.24 1 Capsule ORAL DAILY Comments: Last Taken: 10/26/16 Time: 09:30 AM Magnesium Hydroxide (Milk Of Magnesia) 400 MG/5 ML ORAL.SUSP 5 Milliliters ORAL TWICE DAILY as needed for CONSTIPATION Qty = 70 Comments: NOT GIVEN IN HOSPITAL Gemfibrozil (Lopid) 600 MG TABLET 600 Milligram ORAL TWICE DAILY Qty = 60 Comments: NOT GIVEN IN HOSPITAL Nitroglycerin (Nitroglycerin Patch) 0.4 MG/HOUR PATCH.TD24 0.4 Milligram On the skin DAILY Qty = 30 Comments: Last Taken: 10/25/16 Time: 09:00 PM Metoprolol Succinate (Metoprolol Succinate) 25 MG TAB 75 Milligram ORAL TWICE DAILY Qty = 120 Comments: Last Taken: 10/26/16 Time: 09:30 AM Warfarin Sodium (Warfarin Sodium) 5 MG TABLET 1 Tablet ORAL As Directed Comments: Last Taken: 10/26/16 Time: 1400 Aspirin (Ecotrin*) 81 MG TABLET.DR 1 Tablet ORAL DAILY Comments: NOT GIVEN IN HOSPITAL Copies To: LONNY GARCIA,INO Hilliard; ALEXANDER GARCIA,ABDULLAHI; JOSIAH GARCIA PhD,EARNEST Dior
[2016-10-18 08:16] LABS: PT 18.3 SEC (9.4-12.5)
--- NOTE | 2016-10-18 09:11 | Patient Discharge Instructions ---
Discharge Instructions General Discharge Information You were seen/treated for: Stone in the bile duct Special Instructions: Please make an appointment to see the doctors in the referral section. Please stop using the statin, because you have elevated liver function tests at the time of admission. Please consult your PCP before restarting this medication. Diet Recommended Diet: Heart Healthy Activity Activity Self Limited: Yes Acute Coronary Syndrome Inclusion Criteria At DC or during hospital stay patient has or had the following: ACS DIAGNOSIS No Discharge Core Measures Meds if any: Prescribed or Continued at Discharge Meds if any: NOT Prescribed or Continued at Discharge Congestive Heart Failure Inclusion Criteria At DC or during hospital stay patient has or had the following: CHF DIAGNOSIS No Discharge Core Measures Meds if any: Prescribed or Continued at Discharge Meds if any: NOT Prescribed or Continued at Discharge Cerebrovascular accident Inclusion Criteria At DC or during hospital stay patient has or had the following: CVA/TIA Diagnosis No Discharge Core Measures Meds if any: Prescribed or Continued at Discharge Meds if any: NOT Prescribed or Continued at Discharge Venous thromboembolism Inclusion Criteria VTE Diagnosis No VTE Type NONE VTE Confirmed by (Test) NONE Discharge Core Measures - Per Current guidelines, there needs to be overlap - treatment for the first 5 days of Warfarin therapy. - If discharged on Warfarin prior to 5 days of - overlap therapy, the patient will need to be - assessed for post discharge needs including - *Post discharge parental anticoagulation - *Warfarin and/or parental anticoagulation education - *Follow up date to check INR post discharge At least 5 days overlap therapy as Inpatient No Meds if any: Prescribed or Continued at Discharge Note: Overlap Therapy is Warfarin and Anticoagulant Meds if any: NOT Prescribed or Continued at Discharge
--- NOTE | 2016-10-18 12:19 | Cons- Hematology ---
General Information and HPI Consulting Request Date of Consult: 10/18/16 Requested By: SAMARA KNOWLES MD Reason for Consult: PE/DVT Source of Information: patient, old records Exam Limitations: no limitations History of Present Illness: Mr. Soriano is a 71-yo male with CAD s/p CABG, MV replacement with bovine valve , hypertension, DENA on nasal CPAP, recent hospitalization for left subcapsular renal hematoma after lithotripsy, PE/DVT, and acute gallstone pancreatitis s/p cholecystectomy who presented to the hospital with elevated LFT and epiagstric pain. He was seen by GI and planned for ERCP given elevation of LFT. He was recently found to have likely provoked DVT and PE after hospitalization and lithotripsy. He is on warfarin therpay. Currently he continues to have abdominal pain. Allergies/Medications Allergies: Coded Allergies: NO KNOWN ALLERGIES (07/24/16) Home Med List: Allopurinol 300 MG TABLET 300 MG PO D GOUT (Reported) Alprostadil (Caverject) 20 MCG KIT 20 MCG .ROUTE NEEDED PRN ERECTILE DYSFUNCTION (Reported) INTRACAVERNOSAL Amlodipine Besylate (Norvasc) 10 MG TABLET 10 MG PO HTN HTN (Reported) Reason to Stop at ADM: BP within control, will restart if it goes >120-130 Aspirin (Ecotrin*) 81 MG TABLET.DR 1 TAB PO DAILY HEART/BLOOD (Reported) Chlorthalidone 25 MG TABLET 25 MG PO QAM CARDIAC (Reported) Docusate Sodium (Colace) 100 MG CAPSULE 1 CAP PO DAILY STOOL SOFTENER ( Reported) Ezetimibe (Zetia) 10 MG TABLET 10 MG PO D CHOLESTEROL (Reported) Ferrous Sulfate 325 MG (65 MG IRON) TABLET 325 MG PO BID ANEMIA (Reported) Fluticasone Propionate 50 MCG/ACTUATION SPRAY.SUSP 2 SPRAY NASB DAILY BREATHING (Reported) Gemfibrozil (Lopid) 600 MG TABLET 600 MG PO BID Cholesterol Lactose-Reduced Food (Ensure Liquid) 237 ML LIQUID 1 CAN PO DAILY PRN NUTRITIONAL SUPPLEMENT (Reported) Levothyroxine Sodium 137 MCG TABLET 137 MCG PO QAM HYPOTHYROIDISM (Reported) Magnesium Hydroxide (Milk Of Magnesia) 400 MG/5 ML ORAL.SUSP 5 ML PO BID PRN CONSTIPATION Memantine HCl (Namenda XR) 28 MG CAP.SPR.24 1 CAP PO DAILY MEMORY (Reported) Metoprolol Succinate 25 MG TAB 75 MG PO BID HYPERTENSION Nitroglycerin (Nitroglycerin Patch) 0.4 MG/HOUR PATCH.TD24 0.4 MG TOP DAILY Chest pain Omeprazole 40 MG CAPSULE.DR 40 MG PO D GERD (Reported) Prednisolone Acetate (Omnipred) 1 % DROPS.SUSP 1 GTT OPH DAILY EYE(S) ( Reported) Rosuvastatin Calcium (Crestor) 20 MG TABLET 20 MG PO D CHOLESTEROL (Reported) Sildenafil Citrate (Viagra) 100 MG TABLET 1 TAB PO DAILY NEEDED ERECTILE DYSFUNCTION (Reported) 1 hour before sexual activity Tamsulosin HCl (Flomax) 0.4 MG CAP.ER.24H 0.4 MG PO QPM BPH (Reported) Warfarin Sodium 5 MG TABLET 1 TAB PO AD BLOOD THINNER (Reported) Warfarin Sodium (Coumadin) 2.5 MG TABLET 1 TAB PO QTUES BLOOD THINNER ( Reported) Current Medications: Current Medications Sig/Geri Start time Last Medication Dose Route Stop Time Status Admin Allopurinol 300 MG DAILY 10/17 1000 AC 10/18 PO 0853 Amlodipine Besylate 10 MG DAILY 10/17 1000 AC 10/18 PO 0853 Artificial Tears 2 GTT 4 TIMES/DAY 10/16 2244 AC 10/18 OPH 0854 Chlorthalidone 25 MG QAM 10/17 1000 AC 10/18 PO 0854 Dicyclomine HCl 20 MG 4 TIMES/DAY PRN 10/17 2215 AC PO Docusate Sodium 100 MG DAILY 10/17 1000 AC 10/18 PO 0854 Ezetimibe 10 MG DAILY 10/17 1000 AC 10/18 PO 0853 Ferrous Sulfate 325 MG BID 10/17 1000 AC 10/18 PO 0854 Fluticasone 2 SPRAY DAILY 10/17 1000 AC 10/18 Propionate JEF 0854 Gemfibrozil 600 MG BID 10/16 223 AC 10/18 PO 0854 Heparin Sodium 25,000 UNIT Q24H 10/17 0915 AC 10/18 (Porcine) IV 10/19 0600 0855 Sodium Chloride 500 ML Levothyroxine Sodium 0.137 MG 0700 10/17 0700 AC 10/18 PO 0621 Magnesium Hydroxide 5 ML Q12P PRN 10/16 2245 AC PO Memantine 10 MG BID 10/16 223 AC 10/18 PO 0854 Metoprolol Tartrate 75 MG BID 10/17 1000 AC 10/18 PO 0854 Morphine Sulfate 2 MG Q6-PRN PRN 10/16 2230 AC IV Nitroglycerin 0.4 MG DAILY 10/17 1000 AC 10/18 TOP 0854 Omeprazole 40 MG DAILY AC 10/17 0700 AC 10/18 PO 0620 Oxycodone HCl 5 MG .STK-MED ONE 10/17 2150 DC PO 10/17 2151 Oxycodone HCl 5 MG Q6P PRN 10/16 2230 AC 10/17 PO 2150 Prednisolone 1 GTT DAILY 10/17 1000 AC 10/18 OPH 0854 Sodium Chloride 1,000 ML .[id number] 10/16 2215 DC 10/17 IV 10/18 0054 2106 Tamsulosin HCl 0.4 MG QPM 10/17 2200 AC 10/17 PO 2110 Tramadol HCl 50 MG Q8P PRN 10/17 0230 AC 10/17 PO 2338 Review of Systems Review of Systems Constitutional: Denies: chills, fever. Cardiovascular: Denies: chest pain. Respiratory: Denies: short of breath. GI: Reports: abdominal pain. Genitourinary: Denies: dysuria. Musculoskeletal: Reports: back pain. Hematologic/Endocrine: Denies: bleeding. All Other Systems: Reviewed and Negative Past History Travel History Traveled to [place] past 21 day No Medical History Blood Transfusion Hx: Yes (at time of 01/2015 open [facility]) Neurological: CVA EENT: NONE Cardiovascular: AFIB (transient postop - NSR), aortic stenosis, CAD, hypertension, hyperlipidemia, myocardial infarction, NSTEMI (07/2016), PVD, syncope, bioprosthetic aortic valve replacement with 2 bypass grafts post-op atrial fibrillation Respiratory: obstructive sleep apnea Gastrointestinal: incisional hernia left inguinal hernia Hepatic: NONE (? 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 MOTHER, , Age 90; Cause: due to natural causes. SISTER, , Age 40-50; Cause: Breast cancer. FH: breast cancer Relation not specified for: No family history of cardiac disease Psychosocial History Where Do You Live? Home Who Do You Live With? self Services at Home: Nursing Primary Language: Montenegrin, Kyrgyz Smoking Status: Never Smoked ETOH Use: denies use Illicit Drug Use: denies illicit drug use Living Will? no Power of Canal Structure Operator/HCP? no Other Social History: . Lives alone. No cigarettes, drugs, EtOH, IVDA or tattoos. "Exposed to Hep C, as his ex- was IVDA". Blood transfx 01/2015, post [facility]. 2 dtrs & 1 son- [employer]. 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 Uses cane. Born in [place]. Lives in since 1957. Functional Ability ADLs Independent: dressing, eating, toileting, bathing. Ambulation: independent IADLs Independent: shopping, housework, finances, food prep, telephone, transportation , medication admin. 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 ECHO Results (as available) Date of last Echo 08/17/16 EF% 55 Exam & Diagnostic Data Vital Signs and I&O Vital Signs Date Time Temp Pulse Resp B/P B/P Pulse O2 O2 Flow FiO2 Mean Ox Delivery Rate 10/18 0605 98.1 56 20 128/72 93 Room Air 10/17 2120 98.3 64 16 130/78 96 Room Air 10/17 2110 64 130/78 10/17 1500 98.0 70 20 122/80 98 Room Air Intake & Output 10/18 1600 10/18 0800 10/18 0000 Intake Total 600 Output Total 200 750 Balance -200 -150 Intake, IV 600 Output, Urine 200 750 Physical Exam General Appearance: alert, awake, comfortable Head: atraumatic Ears, Nose, Throat: normal pharynx Respiratory: normal breath sounds, chest non-tender, quiet respiration Cardiovascular: regular rate/rhythm, systolic murmur Gastrointestinal: normal bowel sounds, tenderness (diffusely) Extremities: no edema Neurologic/Psych: awake, alert, oriented x 3 Skin: intact Last 48 Hours of Lab Results: Laboratory Tests 10/18 10/18 10/18 10/17 0640 0600 0150 1900 Chemistry Sodium (137 - 145 mmol/L) 137 Potassium (3.5 - 5.1 mmol/L) 3.7 Chloride (98 - 107 mmol/L) 99 Carbon Dioxide (22 - 30 mmol/L) 32 H Anion Gap (5 - 16) 6 BUN (9 - 20 mg/dL) 13 Creatinine (0.7 - 1.2 mg/dL) 0.9 Estimated GFR (>60 ml/min) > 60 BUN/Creatinine Ratio (7 - 25 %) 14.4 Total Bilirubin (0.2 - 1.3 mg/dL) 0.7 Direct Bilirubin (< 0.4 mg/dL) 0.2 AST (17 - 59 U/L) 47 ALT (21 - 72 U/L) 200 H Alkaline Phosphatase (< 127 U/L) 273 H Total Protein (6.3 - 8.2 g/dL) 5.7 L Albumin (3.5 - 5.0 g/dL) 3.0 L Coagulation PT (9.4 - 12.5 SEC) 18.3 H INR (0.90 - 1.17) 1.75 H APTT (25 - 37 SEC) 74 H 106 *H Hematology CBC w Diff NO MAN DIFF REQ WBC (4.8 - 10.8 /CUMM) 6.0 RBC (4.70 - 6.10 /CUMM) 5.52 Hgb (14.0 - 18.0 G/DL) 15.4 Hct (42 - 52 %) 46.1 MCV (80.0 - 94.0 FL) 83.5 MCH (27.0 - 31.0 PG) 27.8 RDW (11.5 - 14.5 %) 15.9 H Plt Count (130 - 400 /CUMM) 181 MPV (7.4 - 10.4 FL) 7.6 Gran % (42.2 - 75.2 %) 48.5 Lymphocytes % (20.5 - 51.1 %) 40.0 Monocytes % (1.7 - 9.3 %) 9.7 H Eosinophils % (0 - 5 %) 1.2 Basophils % (0.0 - 2.0 %) 0.6 Absolute Granulocytes (1.4 - 6.5 /CUMM) 2.9 Absolute Lymphocytes (1.2 - 3.4 /CUMM) 2.4 Absolute Monocytes (0.10 - 0.60 /CUMM) 0.6 Absolute Eosinophils (0.0 - 0.7 /CUMM) 0.1 Absolute Basophils (0.0 - 0.2 /CUMM) 0 PUBS MCHC (33.0 - 37.0 G/DL) 33.3 Immunology RAMANA Titer Pending Anti-Nuclear Antibody Pending Serology Hepatitis A IgM Ab (NONREACTIVE) NONREACTIVE Hep Bs Antibody (NONREACTIVE) NONREACTIVE Hep B Core IgM Ab Conf (NONREACTIVE) NONREACTIVE Hepatitis C Antibody (NONREACTIVE) REACTIVE H HIV 1&2 Ab Western Blot (NONREACTIVE) NONREACTIVE 10/17 10/17 8645 0649 Chemistry Sodium (137 - 145 mmol/L) 139 Potassium (3.5 - 5.1 mmol/L) 4.0 Chloride (98 - 107 mmol/L) 100 Carbon Dioxide (22 - 30 mmol/L) 30 Anion Gap (5 - 16) 9 BUN (9 - 20 mg/dL) 14 Creatinine (0.7 - 1.2 mg/dL) 0.7 Estimated GFR (>60 ml/min) > 60 BUN/Creatinine Ratio (7 - 25 %) 20.0 Total Bilirubin (0.2 - 1.3 mg/dL) 0.8 Direct Bilirubin (< 0.4 mg/dL) 0.2 AST (17 - 59 U/L) 95 H ALT (21 - 72 U/L) 293 H Alkaline Phosphatase (< 127 U/L) 314 H Troponin I (<0.11 ng/ml) 0.03 Total Protein (6.3 - 8.2 g/dL) 6.3 Albumin (3.5 - 5.0 g/dL) 3.4 L Coagulation PT (9.4 - 12.5 SEC) 25.4 H INR (0.90 - 1.17) 2.44 H Hematology CBC w Diff NO MAN DIFF REQ WBC (4.8 - 10.8 /CUMM) 7.1 RBC (4.70 - 6.10 /CUMM) 5.77 Hgb (14.0 - 18.0 G/DL) 15.9 Hct (42 - 52 %) 48.1 MCV (80.0 - 94.0 FL) 83.4 MCH (27.0 - 31.0 PG) 27.6 RDW (11.5 - 14.5 %) 15.8 H Plt Count (130 - 400 /CUMM) 202 MPV (7.4 - 10.4 FL) 7.4 Gran % (42.2 - 75.2 %) 54.6 Lymphocytes % (20.5 - 51.1 %) 34.2 Monocytes % (1.7 - 9.3 %) 9.8 H Eosinophils % (0 - 5 %) 0.9 Basophils % (0.0 - 2.0 %) 0.5 Absolute Granulocytes (1.4 - 6.5 /CUMM) 3.9 Absolute Lymphocytes (1.2 - 3.4 /CUMM) 2.4 Absolute Monocytes (0.10 - 0.60 /CUMM) 0.7 H Absolute Eosinophils (0.0 - 0.7 /CUMM) 0.1 Absolute Basophils (0.0 - 0.2 /CUMM) 0 PUBS MCHC (33.0 - 37.0 G/DL) 33.1 Toxicology Urine Opiates Screen (>2000 NG/ML) 148.00 Methadone Screen (>300 NG/ML) < 40 Barbiturate Screen (>200 NG/ML) < 60 Ur Phencyclidine Scrn (>25 NG/ML) < 6.00 Amphetamines Screen (>1000 NG/ML) < 100 U Benzodiazepines Scrn (>200 NG/ML) < 85 Urine Cocaine Screen (>300 NG/ML) < 50 Urine Cannabis Screen (>50 NG/ML) < 5.00 Urines Urine Color (YEL,AMB,STR) YEL Urine Clarity (CLEAR) CLEAR Urine pH (5.0 - 8.0) 7.5 Ur Specific [place] (1.001 - 1.035) 1.010 Urine Protein (NEG,<30 MG/DL) NEG Urine Ketones (NEG) NEG Urine Nitrite (NEG) NEG Urine Bilirubin (NEG) NEG Urine Urobilinogen (0.1 - 1.0 EU/dl) 0.2 Ur Leukocyte Esterase (NEG) NEG Ur Microscopic EXAM NOT REQUIRED Urine Hemoglobin (NEG) NEG Urine Glucose (N MG/DL) NEG 10/17 10/16 10/16 0600 1841 1457 Chemistry Sodium (137 - 145 mmol/L) 139 Potassium (3.5 - 5.1 mmol/L) 4.3 Chloride (98 - 107 mmol/L) 97 L Carbon Dioxide (22 - 30 mmol/L) 32 H Anion Gap (5 - 16) 10 BUN (9 - 20 mg/dL) 18 Creatinine (0.7 - 1.2 mg/dL) 0.7 Estimated GFR (>60 ml/min) > 60 BUN/Creatinine Ratio (7 - 25 %) 25.7 H Glucose (65 - 99 mg/dL) 101 H Calcium (8.4 - 10.2 mg/dL) 9.5 Iron (49 - 181 ug/dL) 99 TIBC (261 - 462 ug/dL) 322 Ferritin (17.9 - 464 ng/mL) 293.0 Total Bilirubin (0.2 - 1.3 mg/dL) 0.8 Direct Bilirubin (< 0.4 mg/dL) 0.3 AST (17 - 59 U/L) 174 H ALT (21 - 72 U/L) 408 H Alkaline Phosphatase (< 127 U/L) 347 H Troponin I (<0.11 ng/ml) Cancelled < 0.01 0.01 Total Protein (6.3 - 8.2 g/dL) 7.1 Albumin (3.5 - 5.0 g/dL) 4.0 Globulin (1.9 - 4.2 gm/dL) 3.1 Albumin/Globulin Ratio (1.1 - 2.2 %) 1.3 Amylase (30 - 110 U/L) 63 Lipase (23 - 300 U/L) 102 Coagulation PT (9.4 - 12.5 SEC) 35.6 H INR (0.90 - 1.17) 3.43 H Hematology CBC w Diff NO MAN DIFF REQ WBC (4.8 - 10.8 /CUMM) 8.9 RBC (4.70 - 6.10 /CUMM) 5.95 Hgb (14.0 - 18.0 G/DL) 16.5 Hct (42 - 52 %) 49.6 MCV (80.0 - 94.0 FL) 83.3 MCH (27.0 - 31.0 PG) 27.7 RDW (11.5 - 14.5 %) 15.8 H Plt Count (130 - 400 /CUMM) 225 MPV (7.4 - 10.4 FL) 7.2 L Gran % (42.2 - 75.2 %) 65.9 Lymphocytes % (20.5 - 51.1 %) 22.9 Monocytes % (1.7 - 9.3 %) 9.1 Eosinophils % (0 - 5 %) 1.4 Basophils % (0.0 - 2.0 %) 0.7 Absolute Granulocytes (1.4 - 6.5 /CUMM) 5.9 Absolute Lymphocytes (1.2 - 3.4 /CUMM) 2.0 Absolute Monocytes (0.10 - 0.60 /CUMM) 0.8 H Absolute Eosinophils (0.0 - 0.7 /CUMM) 0.1 Absolute Basophils (0.0 - 0.2 /CUMM) 0.1 PUBS MCHC (33.0 - 37.0 G/DL) 33.3 Immunology Anti-Mitochondrial Ab Pending Imaging/Other Studies: Chest CTA 10/16/2016: 1. No evidence of aortic dissection. No acute vascular abnormalities are identified in the chest, abdomen, and pelvis. Atherosclerotic disease is detailed above. 2. Expected evolutionary changes and decrease in size of the subcapsular hematoma at the left kidney. 3. Inflamed, torsed epiploic appendage at the anterior margin of the descending colon (epiploic appendagitis). This may be symptomatic. 4. Choledocholithiasis. No biliary ductal dilatation. 5. Prostatomegaly. Assessment/Plan Assessment: Mr. Soriano is a 71-yo male with HTN, CAD s/p CABG, bioprosthetic AVR, DENA, and recent DVT/PE who presents with abdominal pain and elevated LFT. There is concerns for choledocholithiasis and plan to perform ERCP. He was diagnosed with PE and DVT in August 2016 after hospitalization, ESWL procedure, and RP hematoma. VTE was felt to be provoked. Due to the provoked and recent nature of thrombosis (<3 months), he would be at high risk for new VTE. He should be bridged to heparin prior to ERCP and bridged back to warfarin after procedure. He will need to be monitored closely for bleeding and new VTE. Recommendations: 1. Bridge with heparin for procedure 2. Bridge to warfarin after procedure Problem List: 1. Elevated LFTs 2. Supratherapeutic INR 3. Epiploic appendagitis 4. DVT (deep venous thrombosis) 5. Bilateral pulmonary embolism Other Findings/Comments: Please call [phone] with any questions or concerns. Consult Acknowledgment - Thank you for your consult request.
[2016-10-18 14:15] VITALS: BP 120/80
[2016-10-18 15:00] LABS: PTT 114 SEC (25-37)
--- NOTE | 2016-10-18 17:25 | PN- Gastroenterology ---
Assessment/Plan Assessment/Recommendations: 71-year-old male with extensive past medical and past surgical history, ASHD post IWMI- stent 12/2002, post CABG x 2 05/21/2014 with bovine AVR, transient postop afib (NSR), HTN, HLD, DM, PVD post B/L fempop & R CEA, DENA, hypoT4, Ca2+ nephrolithiasis, DJD, gout, BPH, open CCKY at [facility] in 01/2015 for gallstone pancreatitis (c/b bleeding with transfusion then), history of Hepatitis C (reportedly treated in our old office pre-EMR, with what sounds like PEG IFN & Ribaviron; limited old records in outpatient EMR- presumably achieved SVR, but not documented). : HIV- negative. He complained his risk factor for Hep C was that his ex- used IV drugs. *Please note, the patient was hospitalized at [facility] 07/24/16 - 08/03/16 for left flank pain, subcapsular left renal hematoma with retroperitoneal extension (post ASA 325), post 07/24/16: ESWL for left renal stone, c/b EKG changes, elevated troponin, and CO. He was then readmitted to [facility] 08/16/16 - 08/22/16, with acute right-sided pleuritic chest pain and CTA showing bilateral subsegmental PE, with no evidence of right heart strain. *Doppler of LLE was postive for DVT then. The patient was given IV heparin & bridged to Coumadin. IVC filter was recommended by cardiology, in the setting of recent left renal subcapsular hematoma, but it was deemed unnecessary per hematology at that point. Therefore, an IVC filter was not placed. He was discharged on Coumadin 0.5 mg daily and taken off full-strength aspirin. The patient presented to the [facility] 10/16/2016 at 2:32 PM, sent in by his PMD for further evaluation of elevated LFTs obtained 2 days [employer] W[employer] and vague abdominal pain. Upon arrival, BP 147/91, P 70, R 18, T 97.9, O2 sat RA 95%. The patient stated he has had chronic intermittent episodes of abdominal pain since the left renal subcapsular hematoma extending to the retroperitoneum 3 months prior, at times epigastric in nature, but currently with bilateral lower abdominal discomfort, radiating to the left flank. At times he also notes vague nonexertional chest pain, with a pressure sensation when driving his car. 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 The symptoms alternate between dull and sharp in quality, approximately "7 out of 10". He denied any shortness of breath, diaphoresis, pleuritic pain, or hemoptysis. He denied any nausea, vomiting, fevers, chills, jaundice, dark urine, light stool, pruritus, GERD, odynophagia, dysphagia, or early satiety. He claims he lost 30 pounds over the last 3 months since the subcapsular hematoma in 07/2016. He denied any hematemesis, rectal bleeding, or melena. He has a bowel movement daily on MiraLAX. He denied any change in bowel habits. Aside from minimal constipation, he denied any diarrhea, constipation, or tenesmus. There is no family history of GI disease, GI malignancy, or inherited liver disease. With regards to his LFTs, he denied any new outpatient medications. He was on a statin (Crestor), which was held on admission. He had been on this for some time. He had a slightly supratherapeutic INR on admission. *A recent outpatient stress test by Dr. Allison disclosed a small region of ischemia in the inferior wall. The ER initially told the GI service on the evening of 10/16/2016 that the patient was being discharged for outpatient workup, but I found that he was admitted this morning. *The patient's Coumadin was held this admission and he was bridged IV heparin. 11/10/2010: Combined upper endoscopy to the third portion of the duodenum with biopsies, plus colonoscopy to the terminal ileum, with prophylactic clipping x1, plus BICAP polypectomy, in addition to random biopsies at different sites, was performed by myself for questionable melena & questionable rectal bleeding ( brown, OB-negative stool then)- no varices, no portal gastropathy, moderate chronic gastritis, H. pylori negative on biopsies, mild GERD on biopsies without Constantino's or EOE, random biopsies D2/D3-negative; random biopsies of terminal ileum, colon, and rectum- negative, no true polyp tissue in left colon, but rather benign lymphoid aggregate. (*A follow-up colonoscopy was advised in 10 years, as per current average-risk for colon cancer screening guidelines, namely 11/2020). In 11/2010, Prilosec was switched to Prevpac for 14 days, to be followed by [facility], for a 11/15/2010: positive H. pylori antibody. 10/16/2016: Admission labs- WBC 8.9, H/H 16.5/49.6, normal MCV, PLT 225, PTT 35.6, INR 3.43; glucose 93, BUN/Cr 12/0.8, GFR > 60, normal electrolytes, * normal LFTs except alk phos 182, troponin < 0.01 (x 2), BNP 210, normal FT4 with normal TSH 1.42 10/16/2016: Amylase 63, lipase 102, albumin 4.0, globulin 3.1, TBil 0.8, DBil 0.3, *alk phos 347, *AST 174, *ALT 408 (repeat LFTs). 10/17/2016: CBC 7.1, H/H 15.9/40.1, PLT 202, PT 25.4, INR 2.44, PTT 106 (on IV heparin); troponin .03, abdomen 3.4, globulin 2.9, TBil 0.8, DBil 0.2, alk phos 314, AST 95, ALT 293 10/17/2016: U/A- clear, yellow, 1.010, 7.5; otherwise negative (no RBC) 10/17/2016: U Tox- negative 10/16/2016: EKG- NSR @ 72, normal axis, normal intervals, LVH, Q anteroseptal 10/16/2016: CT ABD & PELVIS ANGIOGRAM; CTA CHEST-AORTIC DISSECTION- 1. No evidence of aortic dissection. No acute vascular abnormalities are identified in the chest, abdomen, and pelvis. 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 Previously seen subcentimeter pulmonary emboli are not identified on the current study and have largely resolved. 2. Expected evolutionary changes and decrease in size of the subcapsular hematoma at the left kidney. Large 6.9 cm right renal cyst, without change & multiple left renal cysts. 3. Inflamed, torsed epiploic appendage at the anterior margin of the descending colon (epiploic appendagitis). This may be symptomatic. Small fat containing LIH. 4. Choledocholithiasis (4 mm stone). No biliary ductal dilatation. Post CCKY. 5. Prostatomegaly. 6. DJD. T-L scoliosis. *The patient has a tiny CBD stone. His vague abdominal symptoms and chest symptoms have waxed and waned over the past 3 months, since his left renal subcapsular hematoma extending into the retroperitoneum, which is resolving. I am not convinced his presenting GI symptoms are necessarily from the CBD stone, however this should be removed. He has no signs or symptoms of cholangitis & clinically does not need antibiotics. The epiploic appendagitis seen on CT is probably incidental in nature, as is his small LIH. He did have fluctuating LFTs , which could have been related to the CBD stone. *Please note, he was presumably treated with PEG IFN/Ribaviron for Hep C in 2010, although I do not have any old records substantiating SVR. The relatively recent CO (07/2016) and PE with LLE DVT (08/2016) are noted. *The patient does not have an IVC filter. He was on Coumadin predominantly for the recent PE/LLE DVT, not necessarily for the transient postop afib that he had over a year ago. According to my discussion with Dr. Allison, of cardiology, it is okay to hold his Coumadin for ERCP. However, hematology should see the patient to comment on eventual resumption of Coumadin, especially if a papillotomy is entertained. At the moment, his Coumadin is on hold and he is being bridged with IV heparin. His statins (Crestor), have been held on admission, but this probably has little to do with his LFTs. *As of 10/18/2016, the patient remains hemodynamically stable and afebrile. He has no signs or symptoms of cholangitis. He remains in NSR. Troponins have been negative. He tolerated clears po. His vague abdominal pain appears to have resolved. I do not think this was related to the CBD stone, but rather to his previous hematoma. LFTs are slowly improving. INR slowly normalizing off Coumadin, with supratherapeutic PTT on IV heparin (adjusted). *The patient was seen 10/18/2016 by hematology, who advised a bridge with heparin for ERCP and a bridge to Coumadin after ERCP, as the patient was felt to be at risk for a new venous thrombotic event, being that he had a provoked, recent PE/LLE DVT in 3016. There is no CP or SOB. 10/16/2016: Fe 99, TIBC 322, Fe sat 30.7%, ferritin 293 10/17/2016: *AMA- pending 10/18/2016: *RAMANA- pending 10/18/2016: HIV-neg, HAVM- neg, Hep Bs Ab- neg, Hep B core Ab- neg; + Hep C Ab ( *not useful in checking for active replication), PT 18.3, INR 1.75 (off Coumadin ), PTT 114 (on IV heparin), WBC 6.0, H/H 15.4/46.1, PLT 181, GFR > 60, albumin 3.0, globulin 2.7, TBil 0.7, DBil 0.2, alk phos 273, AST 47, ALT 200. 200negwwwwwwwwwwwwwwwwwwwwwwwwwwwwwwwwwwwwwwwwwwwwwwwwwwwwwwwwwwwwwwwwwwwwwwww wwwwwwwwwwwwwwwwwwwwwwwwwwwwwwwwwwwwwwwwwwwwwwwwwwwwwwwwwwwwwwwwwwwwwwwwwwwwww wwwwwwwwwwwwwwwwwwwwwwwwwwwwwwwwwwwwwwwwwwwwwwwwwwwwwwwwwwwwwwwwwwwwwwwwwwwwww wwwwwwwwwwwwwwwwwwwwwwwwwwwwwwwwwwwwwwwwwwwwwwwwwwwwwwwwwwwwwwwwwwwwwwwwwwwwww wwwwwwwwwwwwwwwwwwwwwwwwwwwwwwwwwwwwwwwwwwwwwwwwwwwwwwwwwwwwwwwwwwwwwwwwwwwwww wwwwwwwwwwwwwwwwwwwwwwwwwwwwwwwwwwwwwwwwwwwwwwwwwwwwwwwwwwwwwwwwwwwwwwwwwwwwww wwwwwwwwwwwwwwwwwwwwwwwwwwwwwwwwwwwwwwwwwwwwwwwwwwwwwwwwwwwwwwwwwwwwwwwwwwwwww wwwwwwwwwwwwwwwwwwwwwwwwwwwwwwwwwwwwwwwwwwwwwwwwwwwwwwwwwwwwwwwwwwwwwwwwwwwwww wwwwwwwwwwwwwwwwwwwwwwwwwwwwwwwwwwwwwwwwwwwwwwwwwwwwwwwwwwwwwwwwwwwwwwwwwwwwww wwwwwwwwwwwwwwwwwwwwwwwwwwwwwwwwwwwwwwwwwwwwwwwwwwwwwwwwwwwwwwwwwwwwwwwwwwwwww wwwwwwwwwwwwwwwwwwwwwwwwwwwwwwwwwwwwwwwwwwwwwwwwwwwwwwwwwwwwwwwwwwwwwwwwwwwwww wwwwwwwwwwwwwwwwwwwwwwwwwwwwwwwwwwwwwwwwwwwwwwwwwwwwwwwwwwwwwwwwwwwwwwwwwwwwww wwwwwwwwwwwwwwwwwwwwwwwwwwwwwwwwwwwwwwwwwwwwwwwwwwwwwwwwwwwwwwwwwwwwwwwwwwwwww wwwwwwwwwwwwwwwwwwwwwwwwwwwwwwwwwwwwwwwwwwwwwwwwwwwwwwwwwwwwwwwwwwwwwwwwwwwwww wwwwwwwwwwwwwwwwwwwwwwwwwwwwwwwwwwwwwwwwwwwwwwwwwwwwwwwwwwwwwwwwwwwwwwwwwwwwww wwwwwwwwwwwwwwwwwwwwwwwwwwwwwwwwwwwwwwwwwwwwwwwwwwwwwwwwwwwwwwwwwwwwwwwwwwwwww wwwwwwwwwwwwwwwwwwwwwwwwwwwwwwwwwwwwwwwwwwwwwwwwwwwwwwwwwwwwwwwwwwwwwwwwwwwwww wwwwwwwwwwwwwwwwwwwwwwwwwwwwwwwwwwwwwwwwwwwwwwwwwwwwwwwwwwwwwwwwwwwwwwwwwwwwww wwwwwwwwwwwwwwwwwwwwwwwwwwwwwwwwwwwwwwwwwwwwwwwwwwwwwwwwwwwwwwwwwwwwwwwwwwwwww wwwwwwwwwwwwwwwwwwwwwwwwwwwwwwwwwwwwwwwwwwwwwwwwwwwwwwwwwwwwwwwwwwwwwwwwwwwwww wwwwwwwwwwwwwwwwwwwwwwwwwwwwwwwwwwwwwwwwwwwwwwwwwwwwwwwwwwwwwwwwwwwwwwwwwwwwww wwwwwwwwwwwwwwwwwwwwwwwwwwwwwwwwwwwwwwwwwwwwwwwwwwwwwwwwwwwwwwwwwwwwwwwwwwwwww wwwwwwwwwwwwwwwwwwwwwwwwwwwwwwwwwwwwwwwwwwwwwwwwwwwwwwwwwwwwwwwwwwwwwwwwwwwwww wwwwwwwwwwwwwwwwwwwwwwwwwwwwwwwwwwwwwwwwwwwwwwwwwwwwwwwwwwwwwwwwwwwwwwwwwwwwww wwwwwwwwwwwwwwwwwwwwwwwwwwwwwwwwwwwwwwwwwwwwwwwwwwwwwwwwwwwwwwwwwwwwwwwwwwwwww wwwwwwwwwwwwwwwwwwwwwwwwwwwwwwwwwwwwwwwwwwwwwwwwwwwwwwwwwwwwwwwwwwwwwwwwwwwwww wwwwwwwwwwwwwwwwwwwwwwwwwwwwwwwwwwwwwwwwwwwwwwwwwwwwwwwwwwwwwwwwwwwwwwwwwwwwww wwwwwwwwwwwwwwwwwwwwwwwwwwwwwwwwwwwwwwwwwwwwwwwwwwwwwwwwwwwwwwwwwwwwwwwwwwwwww wwwwwwwwwwwwwwwwwwwwwwwwwwwwwwwwwwwwwwwwwwwwwwwwwwwwwwwwwwwwwwwwwwwwwwwwwwwwww wwwwwwwwwwwwwwwwwwwwwwwwwwwwwwwwwwwwwwwwwwwwwwwwwwwwwwwwwwwwwwwwwwwwwwwwwwwwww wwwwwwwwwwwwwwwwwwwwwwwwwwwwwwwwwwwwwwwwwwwwwwwwwwwwwwwwwwwwwwwwwwwwwwwwwwwwww wwwwwwwwwwwwwwwwwwwwwwwwwwwwwwwwwwwwwwwwwwwwwwwwwwwwwwwwwwwwwwwwwwwwwwwwwwwwww wwwwwwwwwwwwwwwwwwwwwwwwwwwwwwwwwwwwwwwwwwwwwwwwwwwwwwwwwwwwwwwwwwwwwwwwwwwwww wwwwwwwwwwwwwwwwwwwwwwwwwwwwwwwwwwwwwwwwwwwwwwwwwwwwwwwwwwwwwwwwwwwwwwwwwwwwww wwwwwwwwwwwwwwwwwwwwwwwwwwwwwwwwwwwwwwwwwwwwwwwwwwwwwwwwwwwwwwwwwwwwwwwwwwwwww wwwwwwwwwwwwwwwwwwwwwwwwwwwwwwwwwwwwwwwwwwwwwwwwwwwwwwwwwwwwwwwwwwwwwwwwwwwwww wwwwwwwwwwwwwwwwwwwwwwwwwwwwwwwwwwwwwwwwwwwwwwwwwwwwwwwwwwwwwwwwwwwwwwwwwwwwww wwwwwwwwwwwwwwwwwwwwwwwwwwwwwwwwwwwwwwwwwwwwwwwwwwwwwwwwwwwwwwwwwwwwwwwwwwwwww wwwwwwwwwwwwwwwwwwwwwwwwwwwwwwwwwwwwwwwwwwwwwwwwwwwwwwwwwwwwwwwwwwwwwwwwwwwwww wwwwwwwwwwwwwwwwwwwwwwwwwwwwwwwwwwwwwwwwwwwwwwwwwwwwwwwwwwwwwwwwwwwwwwwwwwsailajawww wwwwwwwwwwwwwwwwwwwwwwwwwwwwwwwwwwwwwwwwwwwwwwwwwwwwwwwwwwwwwwwwwwwwwwwwwwwwww wwwwwwwwwwwwwwwwwwwwwwwwwwwwwwwwwwwwwwwwwwwsamwwwwwwwwwwwwwwwwwwwwwwwwwwwww wwwwwwwwwwwwwwwwwwwwwwwwwwwwwangwwwwwwwwwwwwwwwwsailajawwwwwwwwwww wwwwwwwwwwwwwsailajawwwwwwmelissawwwwshimonwwwwwwwwwwwwwwwwwwwwwwwwwwwwwwww wwwwwwwwwwwwwwwwwwwwwwwwwwwwwwwwwwwwwwwwwwwwwwwwwwwwwwwwwwwwwwwwwwwwwwwwwwwwww wwwwwwwwwwwwwwwwwwwwwwwwwwwwwwwwwwwwwwwwwwwwwwwwwwwwwwwwwwwwwwwwwwwwwwwwwwwwww wwwwwwwwwwwwwwwwwwwwwwwwwwwwwwwwwwwwwwwwwwwwwwwwwwwwwwwwwwwwwwwwwwwwwwwwwwwwww wwwwwwwwwwwwwwwwwwwwwwwwwwwwwwwwwwwwwwwwwwwwwwwwwwwwwwwwwwwwwwwwwwwwwwwwwwwwww wwwwwwwwwwwwwwwwwwwwwwwwwwwwwwwwwwwwwwwwwwwwwwwwwwwwwwwwwwwwwwwwwwwwwwwwwwwwww wwwwwwwwwwwwwwwwwwwwwwwwwwwwwwwwwwwwwwwwwwwwwwwwwwwwwwwwwwwwwwwwwwwwwwwwwwwwww wwwwwwwwwwwwwwwwwwwwwwwwwwwwwwwwwwwwwwwwwwwwwwwwwwwwwwwwwwwwwwwwwwwwwwwwwwwwww wwwwwwwwwwwwwwwwwwwwwwwwwwwwwwwwwwwwwwwwwwwwwwwwwwwwwwwwwwwwwwwwwwwwwwwwwwwwww wwwwwwwwwwwwwwwwwwwwwwwwwwwwwwwwwwwwwwwwwwwwwwwwwwwwwwwwwwwwwwwwwwwwwwwwwwwwww wwwwwwwwwwwwwwwwwwwwwwwwwwwwwwwwwwwwwwwwwwwwwwwwwwwwwwwwwwwwwwwwwwwwwwwwwwwwww wwwwwwwwwwwwwwwwwwwwwwwwwwwwwwwwwwwwwwwwwwwwwwwwwwwwwwwwwwwwwwwwwwwwwwwwwwwwww wwwwwwwwwwwwwwwwwwwwwwwwwwwwwwwwwwwwwwwwwwwwwwwwwwwwwwwwwwwwwwwwwwwwwwwwwwwwww wwwwwwwwwwwwwwwwwwwwwwwwwwwwwwwwwwwwwwwwwwwwwwwwwwwwwwwwwwwwwwwwwwwwwwwwwwwwww wwwwwwwwwwwwwwwwwwwwwwwwwwwwwwwwwwwwwwwwwwwwwwwwwwwwwwwwwwwwwwwwwwwwwwwwwwwwww wwwwwwwwwwwwwwwwwwwwwwwwwwwwwwwwwwwwwwwwwwwwwwwwwwwwwwwwwwwwwwwwwwwwwwwwwwwwww wwwwwwwwwwwwwwwwwwwwwwwwwwwwwwwwwwwwwwwwwwwwwwwwwwwwwwwwwwwwwwwwwwwwwwwwwwwwww wwwwwwwwwwwwwwwwwwwwwwwwwwwwwwwwwwwwwwwwwwwwwwwwwwwwwwwwwwwwwwwwwwwwwwwwwwwwww wwwwwwwwwwwwwwwwwwwwwwwwwwwwwwwwwwwwwwwwwwwwwwwwwwwwwwwwwwwwwwwwwwwwwwwwwwwwww wwwwwwwwwwwwwwwwwwwwwwwwwwwwwwwwwwwwwwwwwwwwwwwwwwwwwwwwwwwwwwwwwwwwwwwwwwwwww wwwwwwwwwwwwwwwwwwwwwwwwwwwwwwwwwwwwwwwwwwwwwwwwwwwwwwwwwwwwwwwwwwwwwwwwwwwwww wwwwwwwwwwwwwwwwwwwwwwwwwwwwwwwwwwwwwwwwwwwwwwwwwwwwwwwwwwwwwwwwwwwwwwwwwwwwww wwwwwwwwwwwwwwwwwwwwwwwwwwwwwwwwwwwwwwwwwwwwwwwwwwwwwwwwwwwwwwwwwwwwwwwwwwwwww wwwwwwwwwwwwwwwwwwwwwwwwwwwwwwwwwwwwwwwwwwwwwwwwwwwwwwwwwwwwwwwwwwwwwwwwwwwwww wwwwwwwwwwwwwwwwwwwwwwwwwwwwwwwwwwwwwwwwwwwwwwwwwwwwwwwwwwwwwwwwwwwwwwwwwwwwww wwwwwwwwwwwwwwwwwwwwwwwwwwwwwwwwwwwwwwwwwwwwwwwwwwwwwwwwwwwwwwwwwwwwwwwwwwwwww wwwwwwwwwwwwwwwwwwwwwwwwwwwwwwwwwwwwwwwwwwwwwwwwwwwwwwwwwwwwwwwwwwwwwwwwwwwwww wwwwwwwwwwwwwwwwwwwwwwwwwwwwwwwwwwwwwwwwwwwwwwwwwwwwwwwwwwwwwwwwwwwwwwwwwwwwww wwwwwwwwwwwwwwwwwwwwwwwwwwwwwwwwwwwwwwwwwwwwwwwwwwwwwwwwwwwwwwwwwwwwwwwwwwwwww wwwwwwwwwwwwwwwwwwwwwwwwwwwwwwwwwwwwwwwwwwwwwwwwwwwwwwwwwwwwwwwwwwwwwwwwwwwwww wwwwwwwwwwwwwwwwwwwwwwwwwwwwwwwwwwwwwwwwwwwwwwwwwwwwwwwwwwwwwwwwwwwwwwwwwwwwww wwwwwwwwwwwwwwwwwwwwwwwwwwwwwwwwwwwwwwwwwwwwwwwwwwwwwwwwwwwwwwwwwwwwwwwwwwwwww wwwwwwwwwwwwwwwwwwwwwwwwwwwwwwwwwwwwwwwwwwwwwwwwwwwwwwwwwwwwwwwwwwwwwwwwwwwwww wwwwwwwwwwwwwwwwwwwwwwwwwwwwwwwwwwwwwwwwwwwwwwwwwwwwwwwwwwwwwwwwwwwwwwwwwwwwww wwwwwwwwwwwwwwwwwwwwwwwwwwwwwwwwwwwwwwwwwwwwwwwwwwwwwwwwwwwwwwwwwwwwwwwwwwwwww wwwwwwwwwwwwwwwwwwwwwwwwwwwwwwwwwwwwwwwwwwwwwwwwwwwwwwwwwwwwwwwwwwwwwwwwwwwwww wwwwwwwwwwwwwwwwwwwwwwwwwwwwwwwwwwwwwwwwwwwwwwwwwwwwwwwwwwwwwwwwwwwwwwwwwwwwww wwwwwwwwwwwwwwwwwwwwwwwwwwwwwwwwwwwwwwwwwwwwwwwwwwwwwwwwwwwwwwwwwwwwwwwwwwwwww wwwwwwwwwwwwwwwwwwwwwwwwwwwwwwwwwwwwwwwwwwwwwwwwwwwwwwwwwwwwwwwwwwwwwwwwwwwwww wwwwwwwwwwwwwwwwwwwwwwwwwwwwwwwwwwwwwwwwwwwwwwwwwwwwwwwwwwwwwwwwwwwwwwwwwwwwww wwwwwwwwwwwwwwwwwwwwwwwwwwwwwwwwwwwwwwwwwwwwwwwwwwwwwwwwwwwwwwwwwwwwwwwwwwwwww wwwwwwwwwwwwwwwwwwwwwwwwwwwwwwwwwwwwwwwwwwwwwwwwwwwwwwwwwwwwwwwwwwwwwwwwwwwwww wwwwwwwwwwwwwwwwwwwwwwwwwwwwwwwwwwwwwwwwwwwwwwwwwwwwwwwwwwwwwwwwwwwwwwwwwwwwww wwwwwwwwwwwwwwwwwwwwwwwwwwwwwwwwwwwwwwwwwwwwwwwwwwwwwwwwwwwwwwwwwwwwwwwwwwwwww wwwwwwwwwwwwwwwwwwwwwwwwwwwwwwwwwwwwwwwwwwwwwwwwwwwwwwwwwwwwwwwwwwwwwwwwwwwwww wwwwwwwwwwwwwwwwwwwwwwwwwwwwwwwwwwwwwwwwwwwwwwwwwwwwwwwwwwwwwwwwwwwwwwwwwwwwww wwwwwwwwwwwwwwwwwwwwwwwwwwwwwwwwwwwwwwwwwwwwwwwwwwwwwwwwwwwwwwwwwwwwwwwwwwwwww wwwwwwwwwwwwwwwwwwwwwwwwwwwwwwwwwwwwwwwwwwwwwwwwwwwwwwwwwwwwwwwwwwwwwwwwwwwwww wwwwwwwwwwwwwwwwwwwwwwwwwwwwwwwwwwwwwwwwwwwwwwwwwwwwwwwwwwwwwwwwwwwwwwwwwwwwww wwwwwwwwwwwwwwwwwwwwwwwwwwwwwwwwwwwwwwwwwwwwwwwwwwwwwwwwwwwwwwwwwwwwwwwwwwwwww wwwwwwwwwwwwwwwwwwwwwwwwwwwwwwwwwwwwwwwwwwwwwwwwwwwwwwwwwwwwwwwwwwwwwwwwwwwwww wwwwwwwwwwwwwwwwwwwwwwwwwwwwwwwwwwwwwwwwwwwwwwwwwwwwwwwwwwwwwwwwwwwwwwwwwwwwww wwwwwwwwwwwwwwwwwwwwwwwwwwwwwwwwwwwwwwwwwwwwwwwwwwwwwwwwwwwwwwwwwwwwwwwwwwwwww wwwwwwwwwwwwwwwwwwwwwwwwwwwwwwwwwwwwwwwwwwwwwwwwwwwwwwwwwwwwwwwwwwwwwwwwwwwwww wwwwwwwwwwwwwwwwwwwwwwwwwwwwwwwwwwwwwwwwwwwwwwwwwwwwwwwwwwwwwwwwwwwwwwwwwwwwww wwwwwwwwwwwwwwwwwwwwwwwwwwwwwwwwwwwwwwwwwwwwwwwwwwwwwwwwwwwwwwwwwwwwwwwwwwwwww wwwwwwwwwwwwwwwwwwwwwwwwwwwwwwwwwwwwwwwwwwwwwwwwwwwwwwwwwwwwwwwwwwwwwwwwwwwwww wwwwwwwwwwwwwwwwwwwwwwwwwwwwwwwwwwwwwwwwwwwwwwwwwwwwwwwwwwwwwwwwwwwwwwwwwwwwww wwwwwwwwwwwwwwwwwwwwwwwwwwwwwwwwwwwwwwwwwwwwwwwwwwwwwwwwwwwwwwwwwwwwwwwwwwwwww wwwwwwwwwwwwwwwwwwwwwwwwwwwwwwwwwwwwwwwwwwwwwwwwwwwwwwwwwwwwwwwwwwwwwwwwwwwwww wwwwwwwwwwwwwwwwwwwwwwwwwwwwwwwwwwwwwwwwwwwwwwwwwwwwwwwwwwwwwwwwwwwwwwwwwwwwww wwwwwwwwwwwwwwwwwwwwwwwwwwwwwwwwwwwwwwwwwwwwwwwwwwwwwwwwwwwwwwwwwwwwwwwwwwwwww wwwwwwwwwwwwwwwwwwwwwwwwwwwwwwwwwwwwwwwwwwwwwwwwwwwwwwwwwwwwwwwwwwwwwwwwwwwwww wwwwwwwwwwwwwwwwwwwwwwwwwwwwwwwwwwwwwwwwwwwwwwwwwwwwwwwwwwwwwwwwwwwwwwwwwwwwww wwwwwwwwwwwwwwwwwwwwwwwwwwwwwwwwwwwwwwwwwwwwwwwwwwwwwwwwwwwwwwwwwwwwwwwwwwwwww wwwwwwwwwwwwwwwwwwwwwwwwwwwwwwwwwwwwwwwwwwwwwwwwwwwwwwwwwwwwwwwwwwwwwwwwwwwwww wwwwwwwwwwwwwwwwwwwwwwwwwwwwwwwwwwwwwwwwwwwwwwwwwwwwwwwwwwwwwwwwwwwwwwwwwwwwww wwwwwwwwwwwwwwwwwwwwwwwwwwwwwwwwwwwwwwwwwwwwwwwwwwwwwwwwwwwwwwwwwwwwwwwwwwwwww wwwwwwwwwwwwwwwwwwwwwwwwwwwwwwwwwwwwwwwwwwwwwwwwwwwwwwwwwwwwwwwwwwwwwwwwwwwwww wwwwwwwwwwwwwwwwwwwwwwwwwwwwwwwwwwwwwwwwwwwwwwwwwwwwwwwwwwwwwwwwwwwwwwwwwwwwww wwwwwwwwwwwwwwwwwwwwwwwwwwwwwwwwwwwwwwwwwwwwwwwwwwwwwwwwwwwwwwwwwwwwwwwwwwwwww wwwwwwwwwwwwwwwwwwwwwwwwwwwwwwwwwwwwwwwwwwwwwwwwwwwwwwwwwwwwwwwwwwwwwwwwwwwwww wwwwwwwwwwwwwwwwwwwwwwwwwwwwwwwwwwwwwwwwwwwwwwwwwwwwwwwwwwwwwwwwwwwwwwwwwwwwww wwwwwwwwwwwwwwwwwwwwwwwwwwwwwwwwwwwwwwwwwwwwwwwwwwwwwwwwwwwwwwwwwwwwwwwwwwwwww wwwwwwwwwwwwwwwwwwwwwwwwwwwwwwwwwwwwwwwwwwwwwwwwwwwwwwwwwwwwwwwwwwwwwwwwwwwwww wwwwwwwwwwwwwwwwwwwwwwwwwwwwwwwwwwwwwwwwwwwwwwwwwwwwwwwwwwwwwwwwwwwwwwwwwwwwww wwwwwwwwwwwwwwwwwwwwwwwwwwwwwwwwwwwwwwwwwwwwwwwwwwwwwwwwwwwwwwwwwwwwwwwwwwwwww wwwwwwwwwwwwwwwwwwwwwwwwwwwwwwwwwwwwwwwwwwwwwwwwwwwwwwwwwwwwwwwwwwwwwwwwwwwwww wwwwwwwwwwwwwwwwwwwwwwwwwwwwwwwwwwwwwwwwwwwwwwwwwwwwwwwwwwwwwwwwwwwwwwwwwwwwww wwwwwwwwwwwwwwwwwwwwwwwwwwwwwwwwwwwwwwwwwwwwwwwwwwwwwwwwwwwwwwwwwwwwwwwwwwwwww wwwwwwwwwwwwwwwwwwwwwwwwwwwwwwwwwwwwwwwwwwwwwwwwwwwwwwwwwwwwwwwwwwwwwwwwwwwwww wwwwwwwwwwwwwwwwwwwwwwwwwwwwwwwwwwwwwwwwwwwwwwwwwwwwwwwwwwwwwwwwwwwwwwwwwwwwww wwwwwwwwwwwwwwwwwwwwwwwwwwwwwwwwwwwwwwwwwwwwwwwwwwwwwwwwwwwwwwwwwwwwwwwwwwwwww wwwwwwwwwwwwwwwwwwwwwwwwwwwwwwwwwwwwwwwwwwwwwwwwwwwwwwwwwwwwwwwwwwwwwwwwwwwwww wwwwwwwwwwwwwwwwwwwwwwwwwwwwwwwwwwwwwwwwwwwwwwwwwwwwwwwwwwwwwwwwwwwwwwwwwwwwww wwwwwwwwwwwwwwwwwwwwwwwwwwwwwwwwwwwwwwwwwwwwwwwwwwwwwwwwwwwwwwwwwwwwwwwwwwwwww wwwwwwwwwwwwwwwwwwwwwwwwwwwwwwwwwwwwwwwwwwwwwwwwwwwwwwwwwwwwwwwwwwwwwwwwwwwwww wwwwwwwwwwwwwwwwwwwwwwwwwwwwwwwwwwwwwwwwwwwwwwwwwwwwwwwwwwwwwwwwwwwwwwwwwwwwww wwwwwwwwwwwwwwwwwwwwwwwwwwwwwwwwwwwwwwwwwwwwwwwwwwwwwwwwwwwwwwwwwwwwwwwwwwwwww wwwwwwwwwwwwwwwwwwwwwwwwwwwwwwwwwwwwwwwwwwwwwwwwwwwwwwwwwwwwwwwwwwwwwwwwwwwwww wwwwwwwwwwwwwwwwwwwwwwwwwwwwwwwwwwwwwwwwwwwwwwwwwwwwwwwwwwwwwwwwwwwwwwwwwwwwww wwwwwwwwwwwwwwwwwwwwwwwwwwwwwwwwwwwwwwwwwwwwwwwwwwwwwwwwwwwwwwwwwwwwwwwwwwwwww wwwwwwwwwwwwwwwwwwwwwwwwwwwwwwwwwwwwwwwwwwwwwwwwwwwwwwwwwwwwwwwwwwwwwwwwwwwwww wwwwwwwwwwwwwwwwwwwwwwwwwwwwwwwwwwwwwwwwwwwwwwwwwwwwwwwwwwwwwwwwwwwwwwwwwwwwww wwwwwwwwwwwwwwwwwwwwwwwwwwwwwwwwwwwwwwwwwwwwwwwwwwwwwwwwwwwwwwwwwwwwwwwwwwwwww wwwwwwwwwwwwwwwwwwwwwwwwwwwwwwwwwwwwwwwwwwwwwwwwwwwwwwwwwwwwwwwwwwwwwwwwwwwwww wwwwwwwwwwwwwwwwwwwwwwwwwwwwwwwwwwwwwwwwwwwwwwwwwwwwwwwwwwwwwwwwwwwwwwwwwwwwww wwwwwwwwwwwwwwwwwwwwwwwwwwwwwwwwwwwwwwwwwwwwwwwwwwwwwwwwwwwwwwwwwwwwwwwwwwwwww wwwwwwwwwwwwwwwwwwwwwwwwwwwwwwwwwwwwwwwwwwwwwwwwwwwwwwwwwwwwwwwwwwwwwwwwwwwwww wwwwwwwwwwwwwwwwwwwwwwwwwwwwwwwwwwwwwwwwwwwwwwwwwwwwwwwwwwwwwwwwwwwwwwwwwwwwww wwwwwwwwwwwwwwwwwwwwwwwwwwwwwwwwwwwwwwwwwwwwwwwwwwwwwwwwwwwwwwwwwwwwwwwwwwwwww wwwwwwwwwwwwwwwwwwwwwwwwwwwwwwwwwwwwwwwwwwwwwwwwwwwwwwwwwwwwwwwwwwwwwwwwwwwwww wwwwwwwwwwwwwwwwwwwwwwwwwwwwwwwwwwwwwwwwwwwwwwwwwwwwwwwwwwwwwwwwwwwwwwwwwwwwww wwwwwwwwwwwwwwwwwwwwwwwwwwwwwwwwwwwwwwwwwwwwwwwwwwwwwwwwwwwwwwwwwwwwwwwwwwwwww wwwwwwwwwwwwwwwwwwwwwwwwwwwwwwwwwwwwwwwwwwwwwwwwwwwwwwwwwwwwwwwwwwwwwwwwwwwwww wwwwwwwwwwwwwwwwwwwwwwwwwwwwwwwwwwwwwwwwwwwwwwwwwwwwwwwwwwwwwwwwwwwwwwwwwwwwww wwwwwwwwwwwwwwwwwwwwwwwwwwwwwwwwwwwwwwwwwwwwwwwwwwwwwwwwwwwwwwwwwwwwwwwwwwwwww wwwwwwwwwwwwwwwwwwwwwwwwwwwwwwwwwwwwwwwwwwwwwwwwwwwwwwwwwwwwwwwwwwwwwwwwwwwwww wwwwwwwwwwwwwwwwwwwwwwwwwwwwwwwwwwwwwwwwwwwwwwwwwwwwwwwwwwwwwwwwwwwwwwwwwwwwww wwwwwwwwwwwwwwwwwwwwwwwwwwwwwwwwwwwwwwwwwwwwwwwwwwwwwwwwwwwwwwwwwwwwwwwwwwwwww wwwwwwwwwwwwwwwwwwwwwwwwwwwwwwwwwwwwwwwwwwwwwwwwwwwwwwwwwwwwwwwwwwwwwwwwwwwwww wwwwwwwwwwwwwwwwwwwwwwwwwwwwwwwwwwwwwwwwwwwwwwwwwwwwwwwwwwwwwwwwwwwwwwwwwwwwww wwwwwwwwwwwwwwwwwwwwwwwwwwwwwwwwwwwwwwwwwwwwwwwwwwwwwwwwwwwwwwwwwwwwwwwwwwwwww wwwwwwwwwwwwwwwwwwwwwwwwwwwwwwwwwwwwwwwwwwwwwwwwwwwwwwwwwwwwwwwwwwwwwwwwwwwwww wwwwwwwwwwwwwwwwwwwwwwwwwwwwwwwwwwwwwwwwwwwwwwwwwwwwwwwwwwwwwwwwwwwwwwwwwwwwww wwwwwwwwwwwwwwwwwwwwwwwwwwwwwwwwwwwwwwwwwwwwwwwwwwwwwwwwwwwwwwwwwwwwwwwwwwwwww wwwwwwwwwwwwwwwwwwwwwwwwwwwwwwwwwwwwwwwwwwwwwwwwwwwwwwwwwwwwwwwwwwwwwwwwwwwwww wwwwwwwwwwwwwwwwwwwwwwwwwwwwwwwwwwwwwwwwwwwwwwwwwwwwwwwwwwwwwwwwwwwwwwwwwwwwww wwwwwwwwwwwwwwwwwwwwwwwwwwwwwwwwwwwwwwwwwwwwwwwwwwwwwwwwwwwwwwwwwwwwwwwwwwwwww wwwwwwwwwwwwwwwwwwwwwwwwwwwwwwwwwwwwwwwwwwwwwwwwwwwwwwwwwwwwwwwwwwwwwwwwwwwwww wwwwwwwwwwwwwwwwwwwwwwwwwwwwwwwwwwwwwwwwwwwwwwwwwwwwwwwwwwwwwwwwwwwwwwwwwwwwww wwwwwwwwwwwwwwwwwwwwwwwwwwwwwwwwwwwwwwwwwwwwwwwwwwwwwwwwwwwwwwwwwwwwwwwwwwsailajawww wwwwwwwwwwwwwwwwwwwwwwwwwwwwwwwwwwwwwwwwwwwwwwwwwwwwwwwwwwwwwwwwwwwwwwwwwwwwww wwwwwwwwwwwwwwwwwwwwwwwwwwwwwwwwwwwwwwwwwwwsamwwwwwwwwwwwwwwwwwwwwwwwwwwwww wwwwwwwwwwwwwwwwwwwwwwwwwwwwwangwwwwwwwwwwwwwwwwsailajawwwwwwwwwww wwwwwwwwwwwwwsailajawwwwwwmelissawwwwshimonwwwwwwwwwwwwwwwwwwwwwwwwwwwwwwww wwwwwwwwwwwwwwwwwwwwwwwwwwwwwwwwwwwwwwwwwwwwwwwwwwwwwwwwwwwwwwwwwwwwwwwwwwwwww wwwwwwwwwwwwwwwwwwwwwwwwwwwwwwwwwwwwwwwwwwwwwwwwwwwwwwwwwwwwwwwwwwwwwwwwwwwwww wwwwwwwwwwwwwwwwwwwwwwwwwwwwwwwwwwwwwwwwwwwwwwwwwwwwwwwwwwwwwwwwwwwwwwwwwwwwww wwwwwwwwwwwwwwwwwwwwwwwwwwwwwwwwwwwwwwwwwwwwwwwwwwwwwwwwwwwwwwwwwwwwwwwwwwwwww wwwwwwwwwwwwwwwwwwwwwwwwwwwwwwwwwwwwwwwwwwwwwwwwwwwwwwwwwwwwwwwwwwwwwwwwwwwwww wwwwwwwwwwwwwwwwwwwwwwwwwwwwwwwwwwwwwwwwwwwwwwwwwwwwwwwwwwwwwwwwwwwwwwwwwwwwww wwwwwwwwwwwwwwwwwwwwwwwwwwwwwwwwwwwwwwwwwwwwwwwwwwwwwwwwwwwwwwwwwwwwwwwwwwwwww wwwwwwwwwwwwwwwwwwwwwwwwwwwwwwwwwwwwwwwwwwwwwwwwwwwwwwwwwwwwwwwwwwwwwwwwwwwwww wwwwwwwwwwwwwwwwwwwwwwwwwwwwwwwwwwwwwwwwwwwwwwwwwwwwwwwwwwwwwwwwwwwwwwwwwwwwww wwwwwwwwwwwwwwwwwwwwwwwwwwwwwwwwwwwwwwwwwwwwwwwwwwwwwwwwwwwwwwwwwwwwwwwwwwwwww wwwwwwwwwwwwwwwwwwwwwwwwwwwwwwwwwwwwwwwwwwwwwwwwwwwwwwwwwwwwwwwwwwwwwwwwwwwwww wwwwwwwwwwwwwwwwwwwwwwwwwwwwwwwwwwwwwwwwwwwwwwwwwwwwwwwwwwwwwwwwwwwwwwwwwwwwww wwwwwwwwwwwwwwwwwwwwwwwwwwwwwwwwwwwwwwwwwwwwwwwwwwwwwwwwwwwwwwwwwwwwwwwwwwwwww wwwwwwwwwwwwwwwwwwwwwwwwwwwwwwwwwwwwwwwwwwwwwwwwwwwwwwwwwwwwwwwwwwwwwwwwwwwwww wwwwwwwwwwwwwwwwwwwwwwwwwwwwwwwwwwwwwwwwwwwwwwwwwwwwwwwwwwwwwwwwwwwwwwwwwwwwww wwwwwwwwwwwwwwwwwwwwwwwwwwwwwwwwwwwwwwwwwwwwwwwwwwwwwwwwwwwwwwwwwwwwwwwwwwwwww wwwwwwwwwwwwwwwwwwwwwwwwwwwwwwwwwwwwwwwwwwwwwwwwwwwwwwwwwwwwwwwwwwwwwwwwwwwwww wwwwwwwwwwwwwwwwwwwwwwwwwwwwwwwwwwwwwwwwwwwwwwwwwwwwwwwwwwwwwwwwwwwwwwwwwwwwww wwwwwwwwwwwwwwwwwwwwwwwwwwwwwwwwwwwwwwwwwwwwwwwwwwwwwwwwwwwwwwwwwwwwwwwwwwwwww wwwwwwwwwwwwwwwwwwwwwwwwwwwwwwwwwwwwwwwwwwwwwwwwwwwwwwwwwwwwwwwwwwwwwwwwwwwwww wwwwwwwwwwwwwwwwwwwwwwwwwwwwwwwwwwwwwwwwwwwwwwwwwwwwwwwwwwwwwwwwwwwwwwwwwwwwww wwwwwwwwwwwwwwwwwwwwwwwwwwwwwwwwwwwwwwwwwwwwwwwwwwwwwwwwwwwwwwwwwwwwwwwwwwwwww wwwwwwwwwwwwwwwwwwwwwwwwwwwwwwwwwwwwwwwwwwwwwwwwwwwwwwwwwwwwwwwwwwwwwwwwwwwwww wwwwwwwwwwwwwwwwwwwwwwwwwwwwwwwwwwwwwwwwwwwwwwwwwwwwwwwwwwwwwwwwwwwwwwwwwwwwww wwwwwwwwwwwwwwwwwwwwwwwwwwwwwwwwwwwwwwwwwwwwwwwwwwwwwwwwwwwwwwwwwwwwwwwwwwwwww wwwwwwwwwwwwwwwwwwwwwwwwwwwwwwwwwwwwwwwwwwwwwwwwwwwwwwwwwwwwwwwwwwwwwwwwwwwwww wwwwwwwwwwwwwwwwwwwwwwwwwwwwwwwwwwwwwwwwwwwwwwwwwwwwwwwwwwwwwwwwwwwwwwwwwwwwww wwwwwwwwwwwwwwwwwwwwwwwwwwwwwwwwwwwwwwwwwwwwwwwwwwwwwwwwwwwwwwwwwwwwwwwwwwwwww wwwwwwwwwwwwwwwwwwwwwwwwwwwwwwwwwwwwwwwwwwwwwwwwwwwwwwwwwwwwwwwwwwwwwwwwwwwwww wwwwwwwwwwwwwwwwwwwwwwwwwwwwwwwwwwwwwwwwwwwwwwwwwwwwwwwwwwwwwwwwwwwwwwwwwwwwww wwwwwwwwwwwwwwwwwwwwwwwwwwwwwwwwwwwwwwwwwwwwwwwwwwwwwwwwwwwwwwwwwwwwwwwwwwwwww wwwwwwwwwwwwwwwwwwwwwwwwwwwwwwwwwwwwwwwwwwwwwwwwwwwwwwwwwwwwwwwwwwwwwwwwwwwwww wwwwwwwwwwwwwwwwwwwwwwwwwwwwwwwwwwwwwwwwwwwwwwwwwwwwwwwwwwwwwwwwwwwwwwwwwwwwww wwwwwwwwwwwwwwwwwwwwwwwwwwwwwwwwwwwwwwwwwwwwwwwwwwwwwwwwwwwwwwwwwwwwwwwwwwwwww wwwwwwwwwwwwwwwwwwwwwwwwwwwwwwwwwwwwwwwwwwwwwwwwwwwwwwwwwwwwwwwwwwwwwwwwwwwwww wwwwwwwwwwwwwwwwwwwwwwwwwwwwwwwwwwwwwwwwwwwwwwwwwwwwwwwwwwwwwwwwwwwwwwwwwwwwww wwwwwwwwwwwwwwwwwwwwwwwwwwwwwwwwwwwwwwwwwwwwwwwwwwwwwwwwwwwwwwwwwwwwwwwwwwwwww wwwwwwwwwwwwwwwwwwwwwwwwwwwwwwwwwwwwwwwwwwwwwwwwwwwwwwwwwwwwwwwwwwwwwwwwwwwwww wwwwwwwwwwwwwwwwwwwwwwwwwwwwwwwwwwwwwwwwwwwwwwwwwwwwwwwwwwwwwwwwwwwwwwwwwwwwww wwwwwwwwwwwwwwwwwwwwwwwwwwwwwwwwwwwwwwwwwwwwwwwwwwwwwwwwwwwwwwwwwwwwwwwwwwwwww wwwwwwwwwwwwwwwwwwwwwwwwwwwwwwwwwwwwwwwwwwwwwwwwwwwwwwwwwwwwwwwwwwwwwwwwwwwwww wwwwwwwwwwwwwwwwwwwwwwwwwwwwwwwwwwwwwwwwwwwwwwwwwwwwwwwwwwwwwwwwwwwwwwwwwwwwww wwwwwwwwwwwwwwwwwwwwwwwwwwwwwwwwwwwwwwwwwwwwwwwwwwwwwwwwwwwwwwwwwwwwwwwwwwwwww wwwwwwwwwwwwwwwwwwwwwwwwwwwwwwwwwwwwwwwwwwwwwwwwwwwwwwwwwwwwwwwwwwwwwwwwwwwwww wwwwwwwwwwwwwwwwwwwwwwwwwwwwwwwwwwwwwwwwwwwwwwwwwwwwwwwwwwwwwwwwwwwwwwwwwwwwww wwwwwwwwwwwwwwwwwwwwwwwwwwwwwwwwwwwwwwwwwwwwwwwwwwwwwwwwwwwwwwwwwwwwwwwwwwwwww wwwwwwwwwwwwwwwwwwwwwwwwwwwwwwwwwwwwwwwwwwwwwwwwwwwwwwwwwwwwwwwwwwwwwwwwwwwwww wwwwwwwwwwwwwwwwwwwwwwwwwwwwwwwwwwwwwwwwwwwwwwwwwwwwwwwwwwwwwwwwwwwwwwwwwwwwww wwwwwwwwwwwwwwwwwwwwwwwwwwwwwwwwwwwwwwwwwwwwwwwwwwwwwwwwwwwwwwwwwwwwwwwwwwwwww wwwwwwwwwwwwwwwwwwwwwwwwwwwwwwwwwwwwwwwwwwwwwwwwwwwwwwwwwwwwwwwwwwwwwwwwwwwwww wwwwwwwwwwwwwwwwwwwwwwwwwwwwwwwwwwwwwwwwwwwwwwwwwwwwwwwwwwwwwwwwwwwwwwwwwwwwww wwwwwwwwwwwwwwwwwwwwwwwwwwwwwwwwwwwwwwwwwwwwwwwwwwwwwwwwwwwwwwwwwwwwwwwwwwwwww wwwwwwwwwwwwwwwwwwwwwwwwwwwwwwwwwwwwwwwwwwwwwwwwwwwwwwwwwwwwwwwwwwwwwwwwwwwwww wwwwwwwwwwwwwwwwwwwwwwwwwwwwwwwwwwwwwwwwwwwwwwwwwwwwwwwwwwwwwwwwwwwwwwwwwwwwww wwwwwwwwwwwwwwwwwwwwwwwwwwwwwwwwwwwwwwwwwwwwwwwwwwwwwwwwwwwwwwwwwwwwwwwwwwwwww wwwwwwwwwwwwwwwwwwwwwwwwwwwwwwwwwwwwwwwwwwwwwwwwwwwwwwwwwwwwwwwwwwwwwwwwwwwwww wwwwwwwwwwwwwwwwwwwwwwwwwwwwwwwwwwwwwwwwwwwwwwwwwwwwwwwwwwwwwwwwwwwwwwwwwwwwww wwwwwwwwwwwwwwwwwwwwwwwwwwwwwwwwwwwwwwwwwwwwwwwwwwwwwwwwwwwwwwwwwwwwwwwwwwwwww wwwwwwwwwwwwwwwwwwwwwwwwwwwwwwwwwwwwwwwwwwwwwwwwwwwwwwwwwwwwwwwwwwwwwwwwwwwwww wwwwwwwwwwwwwwwwwwwwwwwwwwwwwwwwwwwwwwwwwwwwwwwwwwwwwwwwwwwwwwwwwwwwwwwwwwwwww wwwwwwwwwwwwwwwwwwwwwwwwwwwwwwwwwwwwwwwwwwwwwwwwwwwwwwwwwwwwwwwwwwwwwwwwwwwwww wwwwwwwwwwwwwwwwwwwwwwwwwwwwwwwwwwwwwwwwwwwwwwwwwwwwwwwwwwwwwwwwwwwwwwwwwwwwww wwwwwwwwwwwwwwwwwwwwwwwwwwwwwwwwwwwwwwwwwwwwwwwwwwwwwwwwwwwwwwwwwwwwwwwwwwwwww wwwwwwwwwwwwwwwwwwwwwwwwwwwwwwwwwwwwwwwwwwwwwwwwwwwwwwwwwwwwwwwwwwwwwwwwwwwwww wwwwwwwwwwwwwwwwwwwwwwwwwwwwwwwwwwwwwwwwwwwwwwwwwwwwwwwwwwwwwwwwwwwwwwwwwwwwww wwwwwwwwwwwwwwwwwwwwwwwwwwwwwwwwwwwwwwwwwwwwwwwwwwwwwwwwwwwwwwwwwwwwwwwwwwwwww wwwwwwwwwwwwwwwwwwwwwwwwwwwwwwwwwwwwwwwwwwwwwwwwwwwwwwwwwwwwwwwwwwwwwwwwwwwwww wwwwwwwwwwwwwwwwwwwwwwwwwwwwwwwwwwwwwwwwwwwwwwwwwwwwwwwwwwwwwwwwwwwwwwwwwwwwww wwwwwwwwwwwwwwwwwwwwwwwwwwwwwwwwwwwwwwwwwwwwwwwwwwwwwwwwwwwwwwwwwwwwwwwwwwwwww wwwwwwwwwwwwwwwwwwwwwwwwwwwwwwwwwwwwwwwwwwwwwwwwwwwwwwwwwwwwwwwwwwwwwwwwwwwwww wwwwwwwwwwwwwwwwwwwwwwwwwwwwwwwwwwwwwwwwwwwwwwwwwwwwwwwwwwwwwwwwwwwwwwwwwwwwww wwwwwwwwwwwwwwwwwwwwwwwwwwwwwwwwwwwwwwwwwwwwwwwwwwwwwwwwwwwwwwwwwwwwwwwwwwwwww wwwwwwwwwwwwwwwwwwwwwwwwwwwwwwwwwwwwwwwwwwwwwwwwwwwwwwwwwwwwwwwwwwwwwwwwwwwwww wwwwwwwwwwwwwwwwwwwwwwwwwwwwwwwwwwwwwwwwwwwwwwwwwwwwwwwwwwwwwwwwwwwwwwwwwwwwww wwwwwwwwwwwwwwwwwwwwwwwwwwwwwwwwwwwwwwwwwwwwwwwwwwwwwwwwwwwwwwwwwwwwwwwwwwwwww wwwwwwwwwwwwwwwwwwwwwwwwwwwwwwwwwwwwwwwwwwwwwwwwwwwwwwwwwwwwwwwwwwwwwwwwwwwwww wwwwwwwwwwwwwwwwwwwwwwwwwwwwwwwwwwwwwwwwwwwwwwwwwwwwwwwwwwwwwwwwwwwwwwwwwwwwww wwwwwwwwwwwwwwwwwwwwwwwwwwwwwwwwwwwwwwwwwwwwwwwwwwwwwwwwwwwwwwwwwwwwwwwwwwwwww wwwwwwwwwwwwwwwwwwwwwwwwwwwwwwwwwwwwwwwwwwwwwwwwwwwwwwwwwwwwwwwwwwwwwwwwwwwwww wwwwwwwwwwwwwwwwwwwwwwwwwwwwwwwwwwwwwwwwwwwwwwwwwwwwwwwwwwwwwwwwwwwwwwwwwwwwww wwwwwwwwwwwwwwwwwwwwwwwwwwwwwwwwwwwwwwwwwwwwwwwwwwwwwwwwwwwwwwwwwwwwwwwwwwwwww wwwwwwwwwwwwwwwwwwwwwwwwwwwwwwwwwwwwwwwwwwwwwwwwwwwwwwwwwwwwwwwwwwwwwwwwwwwwww wwwwwwwwwwwwwwwwwwwwwwwwwwwwwwwwwwwwwwwwwwwwwwwwwwwwwwwwwwwwwwwwwwwwwwwwwwwwww wwwwwwwwwwwwwwwwwwwwwwwwwwwwwwwwwwwwwwwwwwwwwwwwwwwwwwwwwwwwwwwwwwwwwwwwwwwwww wwwwwwwwwwwwwwwwwwwwwwwwwwwwwwwwwwwwwwwwwwwwwwwwwwwwwwwwwwwwwwwwwwwwwwwwwwwwww wwwwwwwwwwwwwwwwwwwwwwwwwwwwwwwwwwwwwwwwwwwwwwwwwwwwwwwwwwwwwwwwwwwwwwwwwwwwww wwwwwwwwwwwwwwwwwwwwwwwwwwwwwwwwwwwwwwwwwwwwwwwwwwwwwwwwwwwwwwwwwwwwwwwwwwwwww wwwwwwwwwwwwwwwwwwwwwwwwwwwwwwwwwwwwwwwwwwwwwwwwwwwwwwwwwwwwwwwwwwwwwwwwwwwwww wwwwwwwwwwwwwwwwwwwwwwwwwwwwwwwwwwwwwwwwwwwwwwwwwwwwwwwwwwwwwwwwwwwwwwwwwwwwww wwwwwwwwwwwwwwwwwwwwwwwwwwwwwwwwwwwwwwwwwwwwwwwwwwwwwwwwwwwwwwwwwwwwwwwwwwwwww wwwwwwwwwwwwwwwwwwwwwwwwwwwwwwwwwwwwwwwwwwwwwwwwwwwwwwwwwwwwwwwwwwwwwwwwwwwwww wwwwwwwwwwwwwwwwwwwwwwwwwwwwwwwwwwwwwwwwwwwwwwwwwwwwwwwwwwwwwwwwwwwwwwwwwwwwww wwwwwwwwwwwwwwwwwwwwwwwwwwwwwwwwwwwwwwwwwwwwwwwwwwwwwwwwwwwwwwwwwwwwwwwwwwwwww wwwwwwwwwwwwwwwwwwwwwwwwwwwwwwwwwwwwwwwwwwwwwwwwwwwwwwwwwwwwwwwwwwwwwwwwwwwwww wwwwwwwwwwwwwwwwwwwwwwwwwwwwwwwwwwwwwwwwwwwwwwwwwwwwwwwwwwwwwwwwwwwwwwwwwwwwww wwwwwwwwwwwwwwwwwwwwwwwwwwwwwwwwwwwwwwwwwwwwwwwwwwwwwwwwwwwwwwwwwwwwwwwwwwwwww wwwwwwwwwwwwwwwwwwwwwwwwwwwwwwwwwwwwwwwwwwwwwwwwwwwwwwwwwwwwwwwwwwwwwwwwwwwwww wwwwwwwwwwwwwwwwwwwwwwwwwwwwwwwwwwwwwwwwwwwwwwwwwwwwwwwwwwwwwwwwwwwwwwwwwwwwww wwwwwwwwwwwwwwwwwwwwwwwwwwwwwwwwwwwwwwwwwwwwwwwwwwwwwwwwwwwwwwwwwwwwwwwwwwwwww wwwwwwwwwwwwwwwwwwwwwwwwwwwwwwwwwwwwwwwwwwwwwwwwwwwwwwwwwwwwwwwwwwwwwwwwwwwwww wwwwwwwwwwwwwwwwwwwwwwwwwwwwwwwwwwwwwwwwwwwwwwwwwwwwwwwwwwwwwwwwwwwwwwwwwwwwww wwwwwwwwwwwwwwwwwwwwwwwwwwwwwwwwwwwwwwwwwwwwwwwwwwwwwwwwwwwwwwwwwwwwwwwwwwwwww wwwwwwwwwwwwwwwwwwwwwwwwwwwwwwwwwwwwwwwwwwwwwwwwwwwwwwwwwwwwwwwwwwwwwwwwwwwwww wwwwwwwwwwwwwwwwwwwwwwwwwwwwwwwwwwwwwwwwwwwwwwwwwwwwwwwwwwwwwwwwwwwwwwwwwwwwww wwwwwwwwwwwwwwwwwwwwwwwwwwwwwwwwwwwwwwwwwwwwwwwwwwwwwwwwwwwwwwwwwwwwwwwwwwwwww wwwwwwwwwwwwwwwwwwwwwwwwwwwwwwwwwwwwwwwwwwwwwwwwwwwwwwwwwwwwwwwwwwwwwwwwwwwwww wwwwwwwwwwwwwwwwwwwwwwwwwwwwwwwwwwwwwwwwwwwwwwwwwwwwwwwwwwwwwwwwwwwwwwwwwwwwww wwwwwwwwwwwwwwwwwwwwwwwwwwwwwwwwwwwwwwwwwwwwwwwwwwwwwwwwwwwwwwwwwwwwwwwwwwwwww wwwwwwwwwwwwwwwwwwwwwwwwwwwwwwwwwwwwwwwwwwwwwwwwwwwwwwwwwwwwwwwwwwwwwwwwwwwwww wwwwwwwwwwwwwwwwwwwwwwwwwwwwwwwwwwwwwwwwwwwwwwwwwwwwwwwwwwwwwwwwwwwwwwwwwwwwww wwwwwwwwwwwwwwwwwwwwwwwwwwwwwwwwwwwwwwwwwwwwwwwwwwwwwwwwwwwwwwwwwwwwwwwwwwwwww wwwwwwwwwwwwwwwwwwwwwwwwwwwwwwwwwwwwwwwwwwwwwwwwwwwwwwwwwwwwwwwwwwwwwwwwwwwwww wwwwwwwwwwwwwwwwwwwwwwwwwwwwwwwwwwwwwwwwwwwwwwwwwwwwwwwwwwwwwwwwwwwwwwwwwwwwww wwwwwwwwwwwwwwwwwwwwwwwwwwwwwwwwwwwwwwwwwwwwwwwwwwwwwwwwwwwwwwwwwwwwwwwwwwwwww wwwwwwwwwwwwwwwwwwwwwwwwwwwwwwwwwwwwwwwwwwwwwwwwwwwwwwwwwwwwwwwwwwwwwwwwww *SUGGEST: *Clears po & IV heparin for now, then NPO after 11:59 p.m., on , 2016, and IV heparin will have to be held at 6 AM on Saturday10/19/2016. Serial LFTs & abdomnal exams.*Coumadin on hold for now (aim for INR < 1.50). *Follow up with hematology. Assuming the patient does not develop any signs or symptoms of cholangitis (i.e.- hypotension, confusion, temperature spikes, etc.), plans are for tentative ERCP on 10/19/2016, which will be performed by Dr. Aman Alvares (d/w good [facility] center), as I do not perform therapeutic biliary endoscopy. *Please call GI sooner if the patient decompensates. *In view of past history of Hep C & elevated LFTs (most probably related to CBD stone), as there is no definite documentation of the patient having achieved SVR after presumed treatment with PEG IFN & Ribaviron, advise checking quantitative HCV RNA & Hep Bs Ag. *Await 10/17/2016: AMA & 10/18/2016: AMA. Will defer to cardiology regarding eventual resumption of Crestor. (By dates, the patient is due for follow up surveillance colonoscopy in 11/2020). Continue Bentyl. Follow-up with numerous physicians, as listed. The above findings and recommendations were previously discussed with Dr. Allison & with the medical house staff in great detail, & again today with the patient's RN. *Dr.H. Alvares may have to confer with Dr. Kaba, of hematology, if papillotomy is to be performed, regarding eventual resumption of A/C therapy. Further recommendations to follow, depending on clinical course. Problem List: 1. Choledocholithiasis 2. Abdominal pain 3. History of hepatitis C 4. Elevated LFTs 5. S/P cholecystectomy 6. Traumatic perinephric hematoma of left kidney 7. Bilateral pulmonary embolism 8. CAD (coronary artery disease) Subjective Subjective: *As of 10/18/2016, the patient remains hemodynamically stable and afebrile. He has no signs or symptoms of cholangitis. He remains in NSR. Troponins have been negative. He tolerated clears po. His vague abdominal pain appears to have resolved. I do not think this was related to the CBD stone, but rather to his previous hematoma. LFTs are slowly improving. INR slowly normalizing off Coumadin, with supratherapeutic PTT on IV heparin (adjusted). *The patient was seen 10/18/2016 by hematology, who advised a bridge with heparin for ERCP and a bridge to Coumadin after ERCP, as the patient was felt to be at risk for a new venous thrombotic event, being that he had a provoked, recent PE/LLE DVT in 3016. There is no CP or SOB. 10/16/2016: Fe 99, TIBC 322, Fe sat 30.7%, ferritin 293 10/17/2016: *AMA- pending 10/18/2016: *RAMANA- pending 10/18/2016: HIV-neg, HAVM- neg, Hep Bs Ab- neg, Hep B core Ab- neg; + Hep C Ab ( *not useful in checking for active replication), PT 18.3, INR 1.75 (off Coumadin ), PTT 114 (on IV heparin), WBC 6.0, H/H 15.4/46.1, PLT 181, GFR > 60, albumin 3.0, globulin 2.7, TBil 0.7, DBil 0.2, alk phos 273, AST 47, ALT 200. 200negwwwwwwwwwwwwwwwwwwwwwwwwwwwwwwwwwwwwwwwwwwwwwwwwwwwwwwwwwwwwwwwwwwwwwwww wwwwwwwwwwwwwwwwwwwwwwwwwwwwwwwwwwwwwwwwwwwwwwwwwwwwwwwwwwwwwwwwwwwwwwwwwwwwww wwwwwwwwwwwwwwwwwwwwwwwwwwwwwwwwwwwwwwwwwwwwwwwwwwwwwwwwwwwwwwwwwwwwwwwwwwwwww wwwwwwwwwwwwwwwwwwwwwwwwwwwwwwwwwwwwwwwwwwwwwwwwwwwwwwwwwwwwwwwwwwwwwwwwwwwwww wwwwwwwwwwwwwwwwwwwwwwwwwwwwwwwwwwwwwwwwwwwwwwwwwwwwwwwwwwwwwwwwwwwwwwwwwwwwww wwwwwwwwwwwwwwwwwwwwwwwwwwwwwwwwwwwwwwwwwwwwwwwwwwwwwwwwwwwwwwwwwwwwwwwwwwwwww wwwwwwwwwwwwwwwwwwwwwwwwwwwwwwwwwwwwwwwwwwwwwwwwwwwwwwwwwwwwwwwwwwwwwwwwwwwwww wwwwwwwwwwwwwwwwwwwwwwwwwwwwwwwwwwwwwwwwwwwwwwwwwwwwwwwwwwwwwwwwwwwwwwwwwwwwww wwwwwwwwwwwwwwwwwwwwwwwwwwwwwwwwwwwwwwwwwwwwwwwwwwwwwwwwwwwwwwwwwwwwwwwwwwsailajawww wwwwwwwwwwwwwwwwwwwwwwwwwwwwwwwwwwwwwwwwwwwwwwwwwwwwwwwwwwwwwwwwwwwwwwwwwwwwww wwwwwwwwwwwwwwwwwwwwwwwwwwwwwwwwwwwwwwwwwwwsamwwwwwwwwwwwwwwwwwwwwwwwwwwwww wwwwwwwwwwwwwwwwwwwwwwwwwwwwwangwwwwwwwwwwwwwwwwsailajawwwwwwwwwww wwwwwwwwwwwwwsailajawwwwwwmelissawwwwshimonwwwwwwwwwwwwwwwwwwwwwwwwwwwwwwww wwwwwwwwwwwwwwwwwwwwwwwwwwwwwwwwwwwwwwwwwwwwwwwwwwwwwwwwwwwwwwwwwwwwwwwwwwwwww wwwwwwwwwwwwwwwwwwwwwwwwwwwwwwwwwwwwwwwwwwwwwwwwwwwwwwwwwwwwwwwwwwwwwwwwwwwwww wwwwwwwwwwwwwwwwwwwwwwwwwwwwwwwwwwwwwwwwwwwwwwwwwwwwwwwwwwwwwwwwwwwwwwwwwwwwww wwwwwwwwwwwwwwwwwwwwwwwwwwwwwwwwwwwwwwwwwwwwwwwwwwwwwwwwwwwwwwwwwwwwwwwwwwwwww wwwwwwwwwwwwwwwwwwwwwwwwwwwwwwwwwwwwwwwwwwwwwwwwwwwwwwwwwwwwwwwwwwwwwwwwwwwwww wwwwwwwwwwwwwwwwwwwwwwwwwwwwwwwwwwwwwwwwwwwwwwwwwwwwwwwwwwwwwwwwwwwwwwwwwwwwww wwwwwwwwwwwwwwwwwwwwwwwwwwwwwwwwwwwwwwwwwwwwwwwwwwwwwwwwwwwwwwwwwwwwwwwwwwwwww wwwwwwwwwwwwwwwwwwwwwwwwwwwwwwwwwwwwwwwwwwwwwwwwwwwwwwwwwwwwwwwwwwwwwwwwwwwwww wwwwwwwwwwwwwwwwwwwwwwwwwwwwwwwwwwwwwwwwwwwwwwwwwwwwwwwwwwwwwwwwwwwwwwwwwwwwww wwwwwwwwwwwwwwwwwwwwwwwwwwwwwwwwwwwwwwwwwwwwwwwwwwwwwwwwwwwwwwwwwwwwwwwwwwwwww wwwwwwwwwwwwwwwwwwwwwwwwwwwwwwwwwwwwwwwwwwwwwwwwwwwwwwwwwwwwwwwwwwwwwwwwwwwwww wwwwwwwwwwwwwwwwwwwwwwwwwwwwwwwwwwwwwwwwwwwwwwwwwwwwwwwwwwwwwwwwwwwwwwwwwwwwww wwwwwwwwwwwwwwwwwwwwwwwwwwwwwwwwwwwwwwwwwwwwwwwwwwwwwwwwwwwwwwwwwwwwwwwwwwwwww wwwwwwwwwwwwwwwwwwwwwwwwwwwwwwwwwwwwwwwwwwwwwwwwwwwwwwwwwwwwwwwwwwwwwwwwwwwwww wwwwwwwwwwwwwwwwwwwwwwwwwwwwwwwwwwwwwwwwwwwwwwwwwwwwwwwwwwwwwwwwwwwwwwwwwwwwww wwwwwwwwwwwwwwwwwwwwwwwwwwwwwwwwwwwwwwwwwwwwwwwwwwwwwwwwwwwwwwwwwwwwwwwwwwwwww wwwwwwwwwwwwwwwwwwwwwwwwwwwwwwwwwwwwwwwwwwwwwwwwwwwwwwwwwwwwwwwwwwwwwwwwwwwwww wwwwwwwwwwwwwwwwwwwwwwwwwwwwwwwwwwwwwwwwwwwwwwwwwwwwwwwwwwwwwwwwwwwwwwwwwwwwww wwwwwwwwwwwwwwwwwwwwwwwwwwwwwwwwwwwwwwwwwwwwwwwwwwwwwwwwwwwwwwwwwwwwwwwwwwwwww wwwwwwwwwwwwwwwwwwwwwwwwwwwwwwwwwwwwwwwwwwwwwwwwwwwwwwwwwwwwwwwwwwwwwwwwwwwwww wwwwwwwwwwwwwwwwwwwwwwwwwwwwwwwwwwwwwwwwwwwwwwwwwwwwwwwwwwwwwwwwwwwwwwwwwwwwww wwwwwwwwwwwwwwwwwwwwwwwwwwwwwwwwwwwwwwwwwwwwwwwwwwwwwwwwwwwwwwwwwwwwwwwwwwwwww wwwwwwwwwwwwwwwwwwwwwwwwwwwwwwwwwwwwwwwwwwwwwwwwwwwwwwwwwwwwwwwwwwwwwwwwwwwwww wwwwwwwwwwwwwwwwwwwwwwwwwwwwwwwwwwwwwwwwwwwwwwwwwwwwwwwwwwwwwwwwwwwwwwwwwwwwww wwwwwwwwwwwwwwwwwwwwwwwwwwwwwwwwwwwwwwwwwwwwwwwwwwwwwwwwwwwwwwwwwwwwwwwwwwwwww wwwwwwwwwwwwwwwwwwwwwwwwwwwwwwwwwwwwwwwwwwwwwwwwwwwwwwwwwwwwwwwwwwwwwwwwwwwwww wwwwwwwwwwwwwwwwwwwwwwwwwwwwwwwwwwwwwwwwwwwwwwwwwwwwwwwwwwwwwwwwwwwwwwwwwwwwww wwwwwwwwwwwwwwwwwwwwwwwwwwwwwwwwwwwwwwwwwwwwwwwwwwwwwwwwwwwwwwwwwwwwwwwwwwwwww wwwwwwwwwwwwwwwwwwwwwwwwwwwwwwwwwwwwwwwwwwwwwwwwwwwwwwwwwwwwwwwwwwwwwwwwwwwwww wwwwwwwwwwwwwwwwwwwwwwwwwwwwwwwwwwwwwwwwwwwwwwwwwwwwwwwwwwwwwwwwwwwwwwwwwwwwww wwwwwwwwwwwwwwwwwwwwwwwwwwwwwwwwwwwwwwwwwwwwwwwwwwwwwwwwwwwwwwwwwwwwwwwwwwwwww wwwwwwwwwwwwwwwwwwwwwwwwwwwwwwwwwwwwwwwwwwwwwwwwwwwwwwwwwwwwwwwwwwwwwwwwwwwwww wwwwwwwwwwwwwwwwwwwwwwwwwwwwwwwwwwwwwwwwwwwwwwwwwwwwwwwwwwwwwwwwwwwwwwwwwwwwww wwwwwwwwwwwwwwwwwwwwwwwwwwwwwwwwwwwwwwwwwwwwwwwwwwwwwwwwwwwwwwwwwwwwwwwwwwwwww wwwwwwwwwwwwwwwwwwwwwwwwwwwwwwwwwwwwwwwwwwwwwwwwwwwwwwwwwwwwwwwwwwwwwwwwwwwwww wwwwwwwwwwwwwwwwwwwwwwwwwwwwwwwwwwwwwwwwwwwwwwwwwwwwwwwwwwwwwwwwwwwwwwwwwwwwww wwwwwwwwwwwwwwwwwwwwwwwwwwwwwwwwwwwwwwwwwwwwwwwwwwwwwwwwwwwwwwwwwwwwwwwwwwwwww wwwwwwwwwwwwwwwwwwwwwwwwwwwwwwwwwwwwwwwwwwwwwwwwwwwwwwwwwwwwwwwwwwwwwwwwwwwwww wwwwwwwwwwwwwwwwwwwwwwwwwwwwwwwwwwwwwwwwwwwwwwwwwwwwwwwwwwwwwwwwwwwwwwwwwwwwww wwwwwwwwwwwwwwwwwwwwwwwwwwwwwwwwwwwwwwwwwwwwwwwwwwwwwwwwwwwwwwwwwwwwwwwwwwwwww wwwwwwwwwwwwwwwwwwwwwwwwwwwwwwwwwwwwwwwwwwwwwwwwwwwwwwwwwwwwwwwwwwwwwwwwwwwwww wwwwwwwwwwwwwwwwwwwwwwwwwwwwwwwwwwwwwwwwwwwwwwwwwwwwwwwwwwwwwwwwwwwwwwwwwwwwww wwwwwwwwwwwwwwwwwwwwwwwwwwwwwwwwwwwwwwwwwwwwwwwwwwwwwwwwwwwwwwwwwwwwwwwwwwwwww wwwwwwwwwwwwwwwwwwwwwwwwwwwwwwwwwwwwwwwwwwwwwwwwwwwwwwwwwwwwwwwwwwwwwwwwwwwwww wwwwwwwwwwwwwwwwwwwwwwwwwwwwwwwwwwwwwwwwwwwwwwwwwwwwwwwwwwwwwwwwwwwwwwwwwwwwww wwwwwwwwwwwwwwwwwwwwwwwwwwwwwwwwwwwwwwwwwwwwwwwwwwwwwwwwwwwwwwwwwwwwwwwwwwwwww wwwwwwwwwwwwwwwwwwwwwwwwwwwwwwwwwwwwwwwwwwwwwwwwwwwwwwwwwwwwwwwwwwwwwwwwwwwwww wwwwwwwwwwwwwwwwwwwwwwwwwwwwwwwwwwwwwwwwwwwwwwwwwwwwwwwwwwwwwwwwwwwwwwwwwwwwww wwwwwwwwwwwwwwwwwwwwwwwwwwwwwwwwwwwwwwwwwwwwwwwwwwwwwwwwwwwwwwwwwwwwwwwwwwwwww wwwwwwwwwwwwwwwwwwwwwwwwwwwwwwwwwwwwwwwwwwwwwwwwwwwwwwwwwwwwwwwwwwwwwwwwwwwwww wwwwwwwwwwwwwwwwwwwwwwwwwwwwwwwwwwwwwwwwwwwwwwwwwwwwwwwwwwwwwwwwwwwwwwwwwwwwww wwwwwwwwwwwwwwwwwwwwwwwwwwwwwwwwwwwwwwwwwwwwwwwwwwwwwwwwwwwwwwwwwwwwwwwwwwwwww wwwwwwwwwwwwwwwwwwwwwwwwwwwwwwwwwwwwwwwwwwwwwwwwwwwwwwwwwwwwwwwwwwwwwwwwwwwwww wwwwwwwwwwwwwwwwwwwwwwwwwwwwwwwwwwwwwwwwwwwwwwwwwwwwwwwwwwwwwwwwwwwwwwwwwwwwww wwwwwwwwwwwwwwwwwwwwwwwwwwwwwwwwwwwwwwwwwwwwwwwwwwwwwwwwwwwwwwwwwwwwwwwwwwwwww wwwwwwwwwwwwwwwwwwwwwwwwwwwwwwwwwwwwwwwwwwwwwwwwwwwwwwwwwwwwwwwwwwwwwwwwwwwwww wwwwwwwwwwwwwwwwwwwwwwwwwwwwwwwwwwwwwwwwwwwwwwwwwwwwwwwwwwwwwwwwwwwwwwwwwwwwww wwwwwwwwwwwwwwwwwwwwwwwwwwwwwwwwwwwwwwwwwwwwwwwwwwwwwwwwwwwwwwwwwwwwwwwwwwwwww wwwwwwwwwwwwwwwwwwwwwwwwwwwwwwwwwwwwwwwwwwwwwwwwwwwwwwwwwwwwwwwwwwwwwwwwwwwwww wwwwwwwwwwwwwwwwwwwwwwwwwwwwwwwwwwwwwwwwwwwwwwwwwwwwwwwwwwwwwwwwwwwwwwwwwwwwww wwwwwwwwwwwwwwwwwwwwwwwwwwwwwwwwwwwwwwwwwwwwwwwwwwwwwwwwwwwwwwwwwwwwwwwwwwwwww wwwwwwwwwwwwwwwwwwwwwwwwwwwwwwwwwwwwwwwwwwwwwwwwwwwwwwwwwwwwwwwwwwwwwwwwwwwwww wwwwwwwwwwwwwwwwwwwwwwwwwwwwwwwwwwwwwwwwwwwwwwwwwwwwwwwwwwwwwwwwwwwwwwwwwwwwww wwwwwwwwwwwwwwwwwwwwwwwwwwwwwwwwwwwwwwwwwwwwwwwwwwwwwwwwwwwwwwwwwwwwwwwwwwwwww wwwwwwwwwwwwwwwwwwwwwwwwwwwwwwwwwwwwwwwwwwwwwwwwwwwwwwwwwwwwwwwwwwwwwwwwwwwwww wwwwwwwwwwwwwwwwwwwwwwwwwwwwwwwwwwwwwwwwwwwwwwwwwwwwwwwwwwwwwwwwwwwwwwwwwwwwww wwwwwwwwwwwwwwwwwwwwwwwwwwwwwwwwwwwwwwwwwwwwwwwwwwwwwwwwwwwwwwwwwwwwwwwwwwwwww wwwwwwwwwwwwwwwwwwwwwwwwwwwwwwwwwwwwwwwwwwwwwwwwwwwwwwwwwwwwwwwwwwwwwwwwwwwwww wwwwwwwwwwwwwwwwwwwwwwwwwwwwwwwwwwwwwwwwwwwwwwwwwwwwwwwwwwwwwwwwwwwwwwwwwwwwww wwwwwwwwwwwwwwwwwwwwwwwwwwwwwwwwwwwwwwwwwwwwwwwwwwwwwwwwwwwwwwwwwwwwwwwwwwwwww wwwwwwwwwwwwwwwwwwwwwwwwwwwwwwwwwwwwwwwwwwwwwwwwwwwwwwwwwwwwwwwwwwwwwwwwwwwwww wwwwwwwwwwwwwwwwwwwwwwwwwwwwwwwwwwwwwwwwwwwwwwwwwwwwwwwwwwwwwwwwwwwwwwwwwwwwww wwwwwwwwwwwwwwwwwwwwwwwwwwwwwwwwwwwwwwwwwwwwwwwwwwwwwwwwwwwwwwwwwwwwwwwwwwwwww wwwwwwwwwwwwwwwwwwwwwwwwwwwwwwwwwwwwwwwwwwwwwwwwwwwwwwwwwwwwwwwwwwwwwwwwwwwwww wwwwwwwwwwwwwwwwwwwwwwwwwwwwwwwwwwwwwwwwwwwwwwwwwwwwwwwwwwwwwwwwwwwwwwwwwwwwww wwwwwwwwwwwwwwwwwwwwwwwwwwwwwwwwwwwwwwwwwwwwwwwwwwwwwwwwwwwwwwwwwwwwwwwwwwwwww wwwwwwwwwwwwwwwwwwwwwwwwwwwwwwwwwwwwwwwwwwwwwwwwwwwwwwwwwwwwwwwwwwwwwwwwwwwwww wwwwwwwwwwwwwwwwwwwwwwwwwwwwwwwwwwwwwwwwwwwwwwwwwwwwwwwwwwwwwwwwwwwwwwwwwwwwww wwwwwwwwwwwwwwwwwwwwwwwwwwwwwwwwwwwwwwwwwwwwwwwwwwwwwwwwwwwwwwwwwwwwwwwwwwwwww wwwwwwwwwwwwwwwwwwwwwwwwwwwwwwwwwwwwwwwwwwwwwwwwwwwwwwwwwwwwwwwwwwwwwwwwwwwwww wwwwwwwwwwwwwwwwwwwwwwwwwwwwwwwwwwwwwwwwwwwwwwwwwwwwwwwwwwwwwwwwwwwwwwwwwwwwww wwwwwwwwwwwwwwwwwwwwwwwwwwwwwwwwwwwwwwwwwwwwwwwwwwwwwwwwwwwwwwwwwwwwwwwwwwwwww wwwwwwwwwwwwwwwwwwwwwwwwwwwwwwwwwwwwwwwwwwwwwwwwwwwwwwwwwwwwwwwwwwwwwwwwwwwwww wwwwwwwwwwwwwwwwwwwwwwwwwwwwwwwwwwwwwwwwwwwwwwwwwwwwwwwwwwwwwwwwwwwwwwwwwwwwww wwwwwwwwwwwwwwwwwwwwwwwwwwwwwwwwwwwwwwwwwwwwwwwwwwwwwwwwwwwwwwwwwwwwwwwwwwwwww wwwwwwwwwwwwwwwwwwwwwwwwwwwwwwwwwwwwwwwwwwwwwwwwwwwwwwwwwwwwwwwwwwwwwwwwwwwwww wwwwwwwwwwwwwwwwwwwwwwwwwwwwwwwwwwwwwwwwwwwwwwwwwwwwwwwwwwwwwwwwwwwwwwwwwwwwww wwwwwwwwwwwwwwwwwwwwwwwwwwwwwwwwwwwwwwwwwwwwwwwwwwwwwwwwwwwwwwwwwwwwwwwwwwwwww wwwwwwwwwwwwwwwwwwwwwwwwwwwwwwwwwwwwwwwwwwwwwwwwwwwwwwwwwwwwwwwwwwwwwwwwwwwwww wwwwwwwwwwwwwwwwwwwwwwwwwwwwwwwwwwwwwwwwwwwwwwwwwwwwwwwwwwwwwwwwwwwwwwwwwwwwww wwwwwwwwwwwwwwwwwwwwwwwwwwwwwwwwwwwwwwwwwwwwwwwwwwwwwwwwwwwwwwwwwwwwwwwwwwwwww wwwwwwwwwwwwwwwwwwwwwwwwwwwwwwwwwwwwwwwwwwwwwwwwwwwwwwwwwwwwwwwwwwwwwwwwwwwwww wwwwwwwwwwwwwwwwwwwwwwwwwwwwwwwwwwwwwwwwwwwwwwwwwwwwwwwwwwwwwwwwwwwwwwwwwwwwww wwwwwwwwwwwwwwwwwwwwwwwwwwwwwwwwwwwwwwwwwwwwwwwwwwwwwwwwwwwwwwwwwwwwwwwwwwwwww wwwwwwwwwwwwwwwwwwwwwwwwwwwwwwwwwwwwwwwwwwwwwwwwwwwwwwwwwwwwwwwwwwwwwwwwwwwwww wwwwwwwwwwwwwwwwwwwwwwwwwwwwwwwwwwwwwwwwwwwwwwwwwwwwwwwwwwwwwwwwwwwwwwwwwwwwww wwwwwwwwwwwwwwwwwwwwwwwwwwwwwwwwwwwwwwwwwwwwwwwwwwwwwwwwwwwwwwwwwwwwwwwwwwwwww wwwwwwwwwwwwwwwwwwwwwwwwwwwwwwwwwwwwwwwwwwwwwwwwwwwwwwwwwwwwwwwwwwwwwwwwwwwwww wwwwwwwwwwwwwwwwwwwwwwwwwwwwwwwwwwwwwwwwwwwwwwwwwwwwwwwwwwwwwwwwwwwwwwwwwwwwww wwwwwwwwwwwwwwwwwwwwwwwwwwwwwwwwwwwwwwwwwwwwwwwwwwwwwwwwwwwwwwwwwwwwwwwwwwwwww wwwwwwwwwwwwwwwwwwwwwwwwwwwwwwwwwwwwwwwwwwwwwwwwwwwwwwwwwwwwwwwwwwwwwwwwwwwwww wwwwwwwwwwwwwwwwwwwwwwwwwwwwwwwwwwwwwwwwwwwwwwwwwwwwwwwwwwwwwwwwwwwwwwwwwwwwww wwwwwwwwwwwwwwwwwwwwwwwwwwwwwwwwwwwwwwwwwwwwwwwwwwwwwwwwwwwwwwwwwwwwwwwwwwwwww wwwwwwwwwwwwwwwwwwwwwwwwwwwwwwwwwwwwwwwwwwwwwwwwwwwwwwwwwwwwwwwwwwwwwwwwwwwwww wwwwwwwwwwwwwwwwwwwwwwwwwwwwwwwwwwwwwwwwwwwwwwwwwwwwwwwwwwwwwwwwwwwwwwwwwwwwww wwwwwwwwwwwwwwwwwwwwwwwwwwwwwwwwwwwwwwwwwwwwwwwwwwwwwwwwwwwwwwwwwwwwwwwwwwwwww wwwwwwwwwwwwwwwwwwwwwwwwwwwwwwwwwwwwwwwwwwwwwwwwwwwwwwwwwwwwwwwwwwwwwwwwwwwwww wwwwwwwwwwwwwwwwwwwwwwwwwwwwwwwwwwwwwwwwwwwwwwwwwwwwwwwwwwwwwwwwwwwwwwwwwwwwww wwwwwwwwwwwwwwwwwwwwwwwwwwwwwwwwwwwwwwwwwwwwwwwwwwwwwwwwwwwwwwwwwwwwwwwwwwwwww wwwwwwwwwwwwwwwwwwwwwwwwwwwwwwwwwwwwwwwwwwwwwwwwwwwwwwwwwwwwwwwwwwwwwwwwwwwwww wwwwwwwwwwwwwwwwwwwwwwwwwwwwwwwwwwwwwwwwwwwwwwwwwwwwwwwwwwwwwwwwwwwwwwwwwwwwww wwwwwwwwwwwwwwwwwwwwwwwwwwwwwwwwwwwwwwwwwwwwwwwwwwwwwwwwwwwwwwwwwwwwwwwwwwwwww wwwwwwwwwwwwwwwwwwwwwwwwwwwwwwwwwwwwwwwwwwwwwwwwwwwwwwwwwwwwwwwwwwwwwwwwwwwwww wwwwwwwwwwwwwwwwwwwwwwwwwwwwwwwwwwwwwwwwwwwwwwwwwwwwwwwwwwwwwwwwwwwwwwwwwwwwww wwwwwwwwwwwwwwwwwwwwwwwwwwwwwwwwwwwwwwwwwwwwwwwwwwwwwwwwwwwwwwwwwwwwwwwwwwwwww wwwwwwwwwwwwwwwwwwwwwwwwwwwwwwwwwwwwwwwwwwwwwwwwwwwwwwwwwwwwwwwwwwwwwwwwwwwwww wwwwwwwwwwwwwwwwwwwwwwwwwwwwwwwwwwwwwwwwwwwwwwwwwwwwwwwwwwwwwwwwwwwwwwwwwwwwww wwwwwwwwwwwwwwwwwwwwwwwwwwwwwwwwwwwwwwwwwwwwwwwwwwwwwwwwwwwwwwwwwwwwwwwwwwwwww wwwwwwwwwwwwwwwwwwwwwwwwwwwwwwwwwwwwwwwwwwwwwwwwwwwwwwwwwwwwwwwwwwwwwwwwwwwwww wwwwwwwwwwwwwwwwwwwwwwwwwwwwwwwwwwwwwwwwwwwwwwwwwwwwwwwwwwwwwwwwwwwwwwwwwwwwww wwwwwwwwwwwwwwwwwwwwwwwwwwwwwwwwwwwwwwwwwwwwwwwwwwwwwwwwwwwwwwwwwwwwwwwwwwsailajawww wwwwwwwwwwwwwwwwwwwwwwwwwwwwwwwwwwwwwwwwwwwwwwwwwwwwwwwwwwwwwwwwwwwwwwwwwwwwww wwwwwwwwwwwwwwwwwwwwwwwwwwwwwwwwwwwwwwwwwwwsamwwwwwwwwwwwwwwwwwwwwwwwwwwwww wwwwwwwwwwwwwwwwwwwwwwwwwwwwwangwwwwwwwwwwwwwwwwsailajawwwwwwwwwww wwwwwwwwwwwwwsailajawwwwwwmelissawwwwshimonwwwwwwwwwwwwwwwwwwwwwwwwwwwwwwww wwwwwwwwwwwwwwwwwwwwwwwwwwwwwwwwwwwwwwwwwwwwwwwwwwwwwwwwwwwwwwwwwwwwwwwwwwwwww wwwwwwwwwwwwwwwwwwwwwwwwwwwwwwwwwwwwwwwwwwwwwwwwwwwwwwwwwwwwwwwwwwwwwwwwwwwwww wwwwwwwwwwwwwwwwwwwwwwwwwwwwwwwwwwwwwwwwwwwwwwwwwwwwwwwwwwwwwwwwwwwwwwwwwwwwww wwwwwwwwwwwwwwwwwwwwwwwwwwwwwwwwwwwwwwwwwwwwwwwwwwwwwwwwwwwwwwwwwwwwwwwwwwwwww wwwwwwwwwwwwwwwwwwwwwwwwwwwwwwwwwwwwwwwwwwwwwwwwwwwwwwwwwwwwwwwwwwwwwwwwwwwwww wwwwwwwwwwwwwwwwwwwwwwwwwwwwwwwwwwwwwwwwwwwwwwwwwwwwwwwwwwwwwwwwwwwwwwwwwwwwww wwwwwwwwwwwwwwwwwwwwwwwwwwwwwwwwwwwwwwwwwwwwwwwwwwwwwwwwwwwwwwwwwwwwwwwwwwwwww wwwwwwwwwwwwwwwwwwwwwwwwwwwwwwwwwwwwwwwwwwwwwwwwwwwwwwwwwwwwwwwwwwwwwwwwwwwwww wwwwwwwwwwwwwwwwwwwwwwwwwwwwwwwwwwwwwwwwwwwwwwwwwwwwwwwwwwwwwwwwwwwwwwwwwwwwww wwwwwwwwwwwwwwwwwwwwwwwwwwwwwwwwwwwwwwwwwwwwwwwwwwwwwwwwwwwwwwwwwwwwwwwwwwwwww wwwwwwwwwwwwwwwwwwwwwwwwwwwwwwwwwwwwwwwwwwwwwwwwwwwwwwwwwwwwwwwwwwwwwwwwwwwwww wwwwwwwwwwwwwwwwwwwwwwwwwwwwwwwwwwwwwwwwwwwwwwwwwwwwwwwwwwwwwwwwwwwwwwwwwwwwww wwwwwwwwwwwwwwwwwwwwwwwwwwwwwwwwwwwwwwwwwwwwwwwwwwwwwwwwwwwwwwwwwwwwwwwwwwwwww wwwwwwwwwwwwwwwwwwwwwwwwwwwwwwwwwwwwwwwwwwwwwwwwwwwwwwwwwwwwwwwwwwwwwwwwwwwwww wwwwwwwwwwwwwwwwwwwwwwwwwwwwwwwwwwwwwwwwwwwwwwwwwwwwwwwwwwwwwwwwwwwwwwwwwwwwww wwwwwwwwwwwwwwwwwwwwwwwwwwwwwwwwwwwwwwwwwwwwwwwwwwwwwwwwwwwwwwwwwwwwwwwwwwwwww wwwwwwwwwwwwwwwwwwwwwwwwwwwwwwwwwwwwwwwwwwwwwwwwwwwwwwwwwwwwwwwwwwwwwwwwwwwwww wwwwwwwwwwwwwwwwwwwwwwwwwwwwwwwwwwwwwwwwwwwwwwwwwwwwwwwwwwwwwwwwwwwwwwwwwwwwww wwwwwwwwwwwwwwwwwwwwwwwwwwwwwwwwwwwwwwwwwwwwwwwwwwwwwwwwwwwwwwwwwwwwwwwwwwwwww wwwwwwwwwwwwwwwwwwwwwwwwwwwwwwwwwwwwwwwwwwwwwwwwwwwwwwwwwwwwwwwwwwwwwwwwwwwwww wwwwwwwwwwwwwwwwwwwwwwwwwwwwwwwwwwwwwwwwwwwwwwwwwwwwwwwwwwwwwwwwwwwwwwwwwwwwww wwwwwwwwwwwwwwwwwwwwwwwwwwwwwwwwwwwwwwwwwwwwwwwwwwwwwwwwwwwwwwwwwwwwwwwwwwwwww wwwwwwwwwwwwwwwwwwwwwwwwwwwwwwwwwwwwwwwwwwwwwwwwwwwwwwwwwwwwwwwwwwwwwwwwwwwwww wwwwwwwwwwwwwwwwwwwwwwwwwwwwwwwwwwwwwwwwwwwwwwwwwwwwwwwwwwwwwwwwwwwwwwwwwwwwww wwwwwwwwwwwwwwwwwwwwwwwwwwwwwwwwwwwwwwwwwwwwwwwwwwwwwwwwwwwwwwwwwwwwwwwwwwwwww wwwwwwwwwwwwwwwwwwwwwwwwwwwwwwwwwwwwwwwwwwwwwwwwwwwwwwwwwwwwwwwwwwwwwwwwwwwwww wwwwwwwwwwwwwwwwwwwwwwwwwwwwwwwwwwwwwwwwwwwwwwwwwwwwwwwwwwwwwwwwwwwwwwwwwwwwww wwwwwwwwwwwwwwwwwwwwwwwwwwwwwwwwwwwwwwwwwwwwwwwwwwwwwwwwwwwwwwwwwwwwwwwwwwwwww wwwwwwwwwwwwwwwwwwwwwwwwwwwwwwwwwwwwwwwwwwwwwwwwwwwwwwwwwwwwwwwwwwwwwwwwwwwwww wwwwwwwwwwwwwwwwwwwwwwwwwwwwwwwwwwwwwwwwwwwwwwwwwwwwwwwwwwwwwwwwwwwwwwwwwwwwww wwwwwwwwwwwwwwwwwwwwwwwwwwwwwwwwwwwwwwwwwwwwwwwwwwwwwwwwwwwwwwwwwwwwwwwwwwwwww wwwwwwwwwwwwwwwwwwwwwwwwwwwwwwwwwwwwwwwwwwwwwwwwwwwwwwwwwwwwwwwwwwwwwwwwwwwwww wwwwwwwwwwwwwwwwwwwwwwwwwwwwwwwwwwwwwwwwwwwwwwwwwwwwwwwwwwwwwwwwwwwwwwwwwwwwww wwwwwwwwwwwwwwwwwwwwwwwwwwwwwwwwwwwwwwwwwwwwwwwwwwwwwwwwwwwwwwwwwwwwwwwwwwwwww wwwwwwwwwwwwwwwwwwwwwwwwwwwwwwwwwwwwwwwwwwwwwwwwwwwwwwwwwwwwwwwwwwwwwwwwwwwwww wwwwwwwwwwwwwwwwwwwwwwwwwwwwwwwwwwwwwwwwwwwwwwwwwwwwwwwwwwwwwwwwwwwwwwwwwwwwww wwwwwwwwwwwwwwwwwwwwwwwwwwwwwwwwwwwwwwwwwwwwwwwwwwwwwwwwwwwwwwwwwwwwwwwwwwwwww wwwwwwwwwwwwwwwwwwwwwwwwwwwwwwwwwwwwwwwwwwwwwwwwwwwwwwwwwwwwwwwwwwwwwwwwwwwwww wwwwwwwwwwwwwwwwwwwwwwwwwwwwwwwwwwwwwwwwwwwwwwwwwwwwwwwwwwwwwwwwwwwwwwwwwwwwww wwwwwwwwwwwwwwwwwwwwwwwwwwwwwwwwwwwwwwwwwwwwwwwwwwwwwwwwwwwwwwwwwwwwwwwwwwwwww wwwwwwwwwwwwwwwwwwwwwwwwwwwwwwwwwwwwwwwwwwwwwwwwwwwwwwwwwwwwwwwwwwwwwwwwwwwwww wwwwwwwwwwwwwwwwwwwwwwwwwwwwwwwwwwwwwwwwwwwwwwwwwwwwwwwwwwwwwwwwwwwwwwwwwwwwww wwwwwwwwwwwwwwwwwwwwwwwwwwwwwwwwwwwwwwwwwwwwwwwwwwwwwwwwwwwwwwwwwwwwwwwwwwwwww wwwwwwwwwwwwwwwwwwwwwwwwwwwwwwwwwwwwwwwwwwwwwwwwwwwwwwwwwwwwwwwwwwwwwwwwwwwwww wwwwwwwwwwwwwwwwwwwwwwwwwwwwwwwwwwwwwwwwwwwwwwwwwwwwwwwwwwwwwwwwwwwwwwwwwwwwww wwwwwwwwwwwwwwwwwwwwwwwwwwwwwwwwwwwwwwwwwwwwwwwwwwwwwwwwwwwwwwwwwwwwwwwwwwwwww wwwwwwwwwwwwwwwwwwwwwwwwwwwwwwwwwwwwwwwwwwwwwwwwwwwwwwwwwwwwwwwwwwwwwwwwwwwwww wwwwwwwwwwwwwwwwwwwwwwwwwwwwwwwwwwwwwwwwwwwwwwwwwwwwwwwwwwwwwwwwwwwwwwwwwwwwww wwwwwwwwwwwwwwwwwwwwwwwwwwwwwwwwwwwwwwwwwwwwwwwwwwwwwwwwwwwwwwwwwwwwwwwwwwwwww wwwwwwwwwwwwwwwwwwwwwwwwwwwwwwwwwwwwwwwwwwwwwwwwwwwwwwwwwwwwwwwwwwwwwwwwwwwwww wwwwwwwwwwwwwwwwwwwwwwwwwwwwwwwwwwwwwwwwwwwwwwwwwwwwwwwwwwwwwwwwwwwwwwwwwwwwww wwwwwwwwwwwwwwwwwwwwwwwwwwwwwwwwwwwwwwwwwwwwwwwwwwwwwwwwwwwwwwwwwwwwwwwwwwwwww wwwwwwwwwwwwwwwwwwwwwwwwwwwwwwwwwwwwwwwwwwwwwwwwwwwwwwwwwwwwwwwwwwwwwwwwwwwwww wwwwwwwwwwwwwwwwwwwwwwwwwwwwwwwwwwwwwwwwwwwwwwwwwwwwwwwwwwwwwwwwwwwwwwwwwwwwww wwwwwwwwwwwwwwwwwwwwwwwwwwwwwwwwwwwwwwwwwwwwwwwwwwwwwwwwwwwwwwwwwwwwwwwwwwwwww wwwwwwwwwwwwwwwwwwwwwwwwwwwwwwwwwwwwwwwwwwwwwwwwwwwwwwwwwwwwwwwwwwwwwwwwwwwwww wwwwwwwwwwwwwwwwwwwwwwwwwwwwwwwwwwwwwwwwwwwwwwwwwwwwwwwwwwwwwwwwwwwwwwwwwwwwww wwwwwwwwwwwwwwwwwwwwwwwwwwwwwwwwwwwwwwwwwwwwwwwwwwwwwwwwwwwwwwwwwwwwwwwwwwwwww wwwwwwwwwwwwwwwwwwwwwwwwwwwwwwwwwwwwwwwwwwwwwwwwwwwwwwwwwwwwwwwwwwwwwwwwwwwwww wwwwwwwwwwwwwwwwwwwwwwwwwwwwwwwwwwwwwwwwwwwwwwwwwwwwwwwwwwwwwwwwwwwwwwwwwwwwww wwwwwwwwwwwwwwwwwwwwwwwwwwwwwwwwwwwwwwwwwwwwwwwwwwwwwwwwwwwwwwwwwwwwwwwwwwwwww wwwwwwwwwwwwwwwwwwwwwwwwwwwwwwwwwwwwwwwwwwwwwwwwwwwwwwwwwwwwwwwwwwwwwwwwwwwwww wwwwwwwwwwwwwwwwwwwwwwwwwwwwwwwwwwwwwwwwwwwwwwwwwwwwwwwwwwwwwwwwwwwwwwwwwwwwww wwwwwwwwwwwwwwwwwwwwwwwwwwwwwwwwwwwwwwwwwwwwwwwwwwwwwwwwwwwwwwwwwwwwwwwwwwwwww wwwwwwwwwwwwwwwwwwwwwwwwwwwwwwwwwwwwwwwwwwwwwwwwwwwwwwwwwwwwwwwwwwwwwwwwwwwwww wwwwwwwwwwwwwwwwwwwwwwwwwwwwwwwwwwwwwwwwwwwwwwwwwwwwwwwwwwwwwwwwwwwwwwwwwwwwww wwwwwwwwwwwwwwwwwwwwwwwwwwwwwwwwwwwwwwwwwwwwwwwwwwwwwwwwwwwwwwwwwwwwwwwwwwwwww wwwwwwwwwwwwwwwwwwwwwwwwwwwwwwwwwwwwwwwwwwwwwwwwwwwwwwwwwwwwwwwwwwwwwwwwwwwwww wwwwwwwwwwwwwwwwwwwwwwwwwwwwwwwwwwwwwwwwwwwwwwwwwwwwwwwwwwwwwwwwwwwwwwwwwwwwww wwwwwwwwwwwwwwwwwwwwwwwwwwwwwwwwwwwwwwwwwwwwwwwwwwwwwwwwwwwwwwwwwwwwwwwwwwwwww wwwwwwwwwwwwwwwwwwwwwwwwwwwwwwwwwwwwwwwwwwwwwwwwwwwwwwwwwwwwwwwwwwwwwwwwwwwwww wwwwwwwwwwwwwwwwwwwwwwwwwwwwwwwwwwwwwwwwwwwwwwwwwwwwwwwwwwwwwwwwwwwwwwwwwwwwww wwwwwwwwwwwwwwwwwwwwwwwwwwwwwwwwwwwwwwwwwwwwwwwwwwwwwwwwwwwwwwwwwwwwwwwwwwwwww wwwwwwwwwwwwwwwwwwwwwwwwwwwwwwwwwwwwwwwwwwwwwwwwwwwwwwwwwwwwwwwwwwwwwwwwwwwwww wwwwwwwwwwwwwwwwwwwwwwwwwwwwwwwwwwwwwwwwwwwwwwwwwwwwwwwwwwwwwwwwwwwwwwwwwwwwww wwwwwwwwwwwwwwwwwwwwwwwwwwwwwwwwwwwwwwwwwwwwwwwwwwwwwwwwwwwwwwwwwwwwwwwwwwwwww wwwwwwwwwwwwwwwwwwwwwwwwwwwwwwwwwwwwwwwwwwwwwwwwwwwwwwwwwwwwwwwwwwwwwwwwwwwwww wwwwwwwwwwwwwwwwwwwwwwwwwwwwwwwwwwwwwwwwwwwwwwwwwwwwwwwwwwwwwwwwwwwwwwwwwwwwww wwwwwwwwwwwwwwwwwwwwwwwwwwwwwwwwwwwwwwwwwwwwwwwwwwwwwwwwwwwwwwwwwwwwwwwwwwwwww wwwwwwwwwwwwwwwwwwwwwwwwwwwwwwwwwwwwwwwwwwwwwwwwwwwwwwwwwwwwwwwwwwwwwwwwwwwwww wwwwwwwwwwwwwwwwwwwwwwwwwwwwwwwwwwwwwwwwwwwwwwwwwwwwwwwwwwwwwwwwwwwwwwwwwwwwww wwwwwwwwwwwwwwwwwwwwwwwwwwwwwwwwwwwwwwwwwwwwwwwwwwwwwwwwwwwwwwwwwwwwwwwwwwwwww wwwwwwwwwwwwwwwwwwwwwwwwwwwwwwwwwwwwwwwwwwwwwwwwwwwwwwwwwwwwwwwwwwwwwwwwwwwwww wwwwwwwwwwwwwwwwwwwwwwwwwwwwwwwwwwwwwwwwwwwwwwwwwwwwwwwwwwwwwwwwwwwwwwwwwwwwww wwwwwwwwwwwwwwwwwwwwwwwwwwwwwwwwwwwwwwwwwwwwwwwwwwwwwwwwwwwwwwwwwwwwwwwwwwwwww wwwwwwwwwwwwwwwwwwwwwwwwwwwwwwwwwwwwwwwwwwwwwwwwwwwwwwwwwwwwwwwwwwwwwwwwwwwwww wwwwwwwwwwwwwwwwwwwwwwwwwwwwwwwwwwwwwwwwwwwwwwwwwwwwwwwwwwwwwwwwwwwwwwwwwwwwww wwwwwwwwwwwwwwwwwwwwwwwwwwwwwwwwwwwwwwwwwwwwwwwwwwwwwwwwwwwwwwwwwwwwwwwwwwwwww wwwwwwwwwwwwwwwwwwwwwwwwwwwwwwwwwwwwwwwwwwwwwwwwwwwwwwwwwwwwwwwwwwwwwwwwwwwwww wwwwwwwwwwwwwwwwwwwwwwwwwwwwwwwwwwwwwwwwwwwwwwwwwwwwwwwwwwwwwwwwwwwwwwwwwwwwww wwwwwwwwwwwwwwwwwwwwwwwwwwwwwwwwwwwwwwwwwwwwwwwwwwwwwwwwwwwwwwwwwwwwwwwwwwwwww wwwwwwwwwwwwwwwwwwwwwwwwwwwwwwwwwwwwwwwwwwwwwwwwwwwwwwwwwwwwwwwwwwwwwwwwwwwwww wwwwwwwwwwwwwwwwwwwwwwwwwwwwwwwwwwwwwwwwwwwwwwwwwwwwwwwwwwwwwwwwwwwwwwwwwwwwww wwwwwwwwwwwwwwwwwwwwwwwwwwwwwwwwwwwwwwwwwwwwwwwwwwwwwwwwwwwwwwwwwwwwwwwwwwwwww wwwwwwwwwwwwwwwwwwwwwwwwwwwwwwwwwwwwwwwwwwwwwwwwwwwwwwwwwwwwwwwwwwwwwwwwwwwwww wwwwwwwwwwwwwwwwwwwwwwwwwwwwwwwwwwwwwwwwwwwwwwwwwwwwwwwwwwwwwwwwwwwwwwwwwwwwww wwwwwwwwwwwwwwwwwwwwwwwwwwwwwwwwwwwwwwwwwwwwwwwwwwwwwwwwwwwwwwwwwwwwwwwwwwwwww wwwwwwwwwwwwwwwwwwwwwwwwwwwwwwwwwwwwwwwwwwwwwwwwwwwwwwwwwwwwwwwwwwwwwwwwwwwwww wwwwwwwwwwwwwwwwwwwwwwwwwwwwwwwwwwwwwwwwwwwwwwwwwwwwwwwwwwwwwwwwwwwwwwwwwwwwww wwwwwwwwwwwwwwwwwwwwwwwwwwwwwwwwwwwwwwwwwwwwwwwwwwwwwwwwwwwwwwwwwwwwwwwwwwwwww wwwwwwwwwwwwwwwwwwwwwwwwwwwwwwwwwwwwwwwwwwwwwwwwwwwwwwwwwwwwwwwwwwwwwwwwwwwwww wwwwwwwwwwwwwwwwwwwwwwwwwwwwwwwwwwwwwwwwwwwwwwwwwwwwwwwwwwwwwwwwwwwwwwwwwwwwww wwwwwwwwwwwwwwwwwwwwwwwwwwwwwwwwwwwwwwwwwwwwwwwwwwwwwwwwwwwwwwwwwwwwwwwwwwwwww wwwwwwwwwwwwwwwwwwwwwwwwwwwwwwwwwwwwwwwwwwwwwwwwwwwwwwwwwwwwwwwwwwwwwwwwwwwwww wwwwwwwwwwwwwwwwwwwwwwwwwwwwwwwwwwwwwwwwwwwwwwwwwwwwwwwwwwwwwwwwwwwwwwwwwwwwww wwwwwwwwwwwwwwwwwwwwwwwwwwwwwwwwwwwwwwwwwwwwwwwwwwwwwwwwwwwwwwwwwwwwwwwwwwwwww wwwwwwwwwwwwwwwwwwwwwwwwwwwwwwwwwwwwwwwwwwwwwwwwwwwwwwwwwwwwwwwwwwwwwwwwwwwwww wwwwwwwwwwwwwwwwwwwwwwwwwwwwwwwwwwwwwwwwwwwwwwwwwwwwwwwwwwwwwwwwwwwwwwwwwwwwww wwwwwwwwwwwwwwwwwwwwwwwwwwwwwwwwwwwwwwwwwwwwwwwwwwwwwwwwwwwwwwwwwwwwwwwwwwwwww wwwwwwwwwwwwwwwwwwwwwwwwwwwwwwwwwwwwwwwwwwwwwwwwwwwwwwwwwwwwwwwwwwwwwwwwwwwwww wwwwwwwwwwwwwwwwwwwwwwwwwwwwwwwwwwwwwwwwwwwwwwwwwwwwwwwwwwwwwwwwwwwwwwwwwwwwww wwwwwwwwwwwwwwwwwwwwwwwwwwwwwwwwwwwwwwwwwwwwwwwwwwwwwwwwwwwwwwwwwwwwwwwwwwwwww wwwwwwwwwwwwwwwwwwwwwwwwwwwwwwwwwwwwwwwwwwwwwwwwwwwwwwwwwwwwwwwwwwwwwwwwwwwwww wwwwwwwwwwwwwwwwwwwwwwwwwwwwwwwwwwwwwwwwwwwwwwwwwwwwwwwwwwwwwwwwwwwwwwwwwwwwww wwwwwwwwwwwwwwwwwwwwwwwwwwwwwwwwwwwwwwwwwwwwwwwwwwwwwwwwwwwwwwwwwwwwwwwwwwwwww wwwwwwwwwwwwwwwwwwwwwwwwwwwwwwwwwwwwwwwwwwwwwwwwwwwwwwwwwwwwwwwwwwwwwwwwwwwwww wwwwwwwwwwwwwwwwwwwwwwwwwwwwwwwwwwwwwwwwwwwwwwwwwwwwwwwwwwwwwwwwwwwwwwwwwwwwww wwwwwwwwwwwwwwwwwwwwwwwwwwwwwwwwwwwwwwwwwwwwwwwwwwwwwwwwwwwwwwwwwwwwwwwwwwwwww wwwwwwwwwwwwwwwwwwwwwwwwwwwwwwwwwwwwwwwwwwwwwwwwwwwwwwwwwwwwwwwwwwwwwwwwwwwwww wwwwwwwwwwwwwwwwwwwwwwwwwwwwwwwwwwwwwwwwwwwwwwwwwwwwwwwwwwwwwwwwwwwwwwwwwwwwww wwwwwwwwwwwwwwwwwwwwwwwwwwwwwwwwwwwwwwwwwwwwwwwwwwwwwwwwwwwwwwwwwwwwwwwwwwsailajawww wwwwwwwwwwwwwwwwwwwwwwwwwwwwwwwwwwwwwwwwwwwwwwwwwwwwwwwwwwwwwwwwwwwwwwwwwwwwww wwwwwwwwwwwwwwwwwwwwwwwwwwwwwwwwwwwwwwwwwwwsamwwwwwwwwwwwwwwwwwwwwwwwwwwwww wwwwwwwwwwwwwwwwwwwwwwwwwwwwwangwwwwwwwwwwwwwwwwsailajawwwwwwwwwww wwwwwwwwwwwwwsailajawwwwwwmelissawwwwshimonwwwwwwwwwwwwwwwwwwwwwwwwwwwwwwww wwwwwwwwwwwwwwwwwwwwwwwwwwwwwwwwwwwwwwwwwwwwwwwwwwwwwwwwwwwwwwwwwwwwwwwwwwwwww wwwwwwwwwwwwwwwwwwwwwwwwwwwwwwwwwwwwwwwwwwwwwwwwwwwwwwwwwwwwwwwwwwwwwwwwwwwwww wwwwwwwwwwwwwwwwwwwwwwwwwwwwwwwwwwwwwwwwwwwwwwwwwwwwwwwwwwwwwwwwwwwwwwwwwwwwww wwwwwwwwwwwwwwwwwwwwwwwwwwwwwwwwwwwwwwwwwwwwwwwwwwwwwwwwwwwwwwwwwwwwwwwwwwwwww wwwwwwwwwwwwwwwwwwwwwwwwwwwwwwwwwwwwwwwwwwwwwwwwwwwwwwwwwwwwwwwwwwwwwwwwwwwwww wwwwwwwwwwwwwwwwwwwwwwwwwwwwwwwwwwwwwwwwwwwwwwwwwwwwwwwwwwwwwwwwwwwwwwwwwwwwww wwwwwwwwwwwwwwwwwwwwwwwwwwwwwwwwwwwwwwwwwwwwwwwwwwwwwwwwwwwwwwwwwwwwwwwwwwwwww wwwwwwwwwwwwwwwwwwwwwwwwwwwwwwwwwwwwwwwwwwwwwwwwwwwwwwwwwwwwwwwwwwwwwwwwwwwwww wwwwwwwwwwwwwwwwwwwwwwwwwwwwwwwwwwwwwwwwwwwwwwwwwwwwwwwwwwwwwwwwwwwwwwwwwwwwww wwwwwwwwwwwwwwwwwwwwwwwwwwwwwwwwwwwwwwwwwwwwwwwwwwwwwwwwwwwwwwwwwwwwwwwwwwwwww wwwwwwwwwwwwwwwwwwwwwwwwwwwwwwwwwwwwwwwwwwwwwwwwwwwwwwwwwwwwwwwwwwwwwwwwwwwwww wwwwwwwwwwwwwwwwwwwwwwwwwwwwwwwwwwwwwwwwwwwwwwwwwwwwwwwwwwwwwwwwwwwwwwwwwwwwww wwwwwwwwwwwwwwwwwwwwwwwwwwwwwwwwwwwwwwwwwwwwwwwwwwwwwwwwwwwwwwwwwwwwwwwwwwwwww wwwwwwwwwwwwwwwwwwwwwwwwwwwwwwwwwwwwwwwwwwwwwwwwwwwwwwwwwwwwwwwwwwwwwwwwwwwwww wwwwwwwwwwwwwwwwwwwwwwwwwwwwwwwwwwwwwwwwwwwwwwwwwwwwwwwwwwwwwwwwwwwwwwwwwwwwww wwwwwwwwwwwwwwwwwwwwwwwwwwwwwwwwwwwwwwwwwwwwwwwwwwwwwwwwwwwwwwwwwwwwwwwwwwwwww wwwwwwwwwwwwwwwwwwwwwwwwwwwwwwwwwwwwwwwwwwwwwwwwwwwwwwwwwwwwwwwwwwwwwwwwwwwwww wwwwwwwwwwwwwwwwwwwwwwwwwwwwwwwwwwwwwwwwwwwwwwwwwwwwwwwwwwwwwwwwwwwwwwwwwwwwww wwwwwwwwwwwwwwwwwwwwwwwwwwwwwwwwwwwwwwwwwwwwwwwwwwwwwwwwwwwwwwwwwwwwwwwwwwwwww wwwwwwwwwwwwwwwwwwwwwwwwwwwwwwwwwwwwwwwwwwwwwwwwwwwwwwwwwwwwwwwwwwwwwwwwwwwwww wwwwwwwwwwwwwwwwwwwwwwwwwwwwwwwwwwwwwwwwwwwwwwwwwwwwwwwwwwwwwwwwwwwwwwwwww Review of Systems: Full 14 point ROS ottherwise noncontributory, and as above. Review of Systems Constitutional: Reports: unexplained weight loss (30 lbs since 07/2016 hematoma). Denies: chills, diaphoresis, fever, malaise, weakness. EENTM: Denies: blurred vision, double vision, visual changes, eye pain, eye drainage, eye tearing, icterus, ear discharge, ear pain, ear redness, hearing changes, nasal congestion, epistaxis, nasal pain, throat pain, throat swelling, mouth pain, tooth pain. Cardiovascular: Reports: chest pain (non-exertional)- resolved. Denies: edema, orthopena, palpitations, peripheral edema, syncope. Respiratory: Denies: cough, hemoptysis, orthopnea, short of breath, sputum production, stridor, wheezing. GI: Reports: abdominal pain- resolved. Denies: bloating, constipation, diarrhea, distention, bowel incontinence, melena , nausea, bloody stool, changes in stool, vomiting, steatorrhea. Genitourinary: Reports: nocturia (BPH). Denies: discharge, dysuria, frequency, hematuria, hesitation, pain, urgency. Musculoskeletal: Reports: joint pain (DJD/gout). Denies: back pain, gout, joint swelling, muscle pain, muscle stiffness, neck pain. Skin: Denies: cysts, change in skin color, change in hair/nails, dryness, erythema, jaundice, lesions, lymphangitis, lumps, moles, rash. Neurological/Psychological: Denies: anxiety, ataxia, cognitive dysfunction, confusion, depressed, dementia, emotional problems, headache, numbness, paresthesia, pre-existing deficit, petit mal seizures, tingling, tremors, tonic-clonic seizures, unable to move lower ext , unable to move upper ext, weakness. Hematologic/Endocrine: Denies: bruising, bleeding, polyuria, polydipsia. Immunologic/Allergic: Denies: splenectomy, HIV/AIDS, lymphadenopathy. All Other Systems: Reviewed and Negative Objective Vital Signs and I&Os Vital Signs Date Time Temp Pulse Resp B/P B/P Pulse O2 O2 Flow FiO2 Mean Ox Delivery Rate 10/18 1415 97.5 63 20 120/80 94 Room Air 10/18 06 98.1 56 20 128/72 93 Room Air 10/17 2121 98.3 64 16 130/78 96 Room Air 10/17 2110 64 130/78 Intake & Output 10/18 1600 10/18 0400 10/17 1600 10/17 04010/16 1600 10/16 0400 Intake Total 1150 752 635 6264 Output Total 200 750 300 200 Balance 950 -150 440 800 Intake, IV 150 386 987 9928 Intake, Oral 1000 240 Number 1 1 Bowel Movements Output, Urine 200 750 300 200 Patient 200 lb 200 lb Weight Weight Reported by Patient Measurement Method Physical Exam: Well-developed, well-nourished male, in no apparent distress. Sclera anicteric. Conjunctiva pink. Oropharynx clear. No oral thrush. No aphthous ulcers. There is no adenopathy, thyromegaly, or JVD. No peripheral stigmata of inflammatory bowel disease or chronic liver disease on exam. No spiders on the anterior chest wall. No gynecomastia. No CVA tenderness. T-L scoliosis. Lungs: clear to A&P, with slight decreased BS at the bases B/L. No wheezing, rales, or rhonchi. No CWT. Heart exam: currently regular rate rhythm, S1 and S2, with III/ systolic murmur. Post CABG scar. Abdominal exam: normal bowel sounds, soft belly, currently nontender, without guarding or rebound. Small reducible LIH, otherwise no mass. Vertical RUQ scar, post CCKY. No organomegaly. No fluid shift. No pulsatile mass. Digital rectal exam: deferred by patient ("recently OB-negative at urology"). Extremities: without C, C, or E. No palpable cords. Mild DJD. Distal pulses 2+ bilaterally. DTRs 2+ bilaterally. Alert and oriented x 3. Right handed. Nonfocal, although a detailed exam for peripheral neuropathy was deferred. No tremor. No asterixis. Current Medications: Current Medications Sig/Geri Start time Last Medication Dose Route Stop Time Status Admin Allopurinol 300 MG DAILY 10/17 1000 AC 10/18 PO 0853 Amlodipine Besylate 10 MG DAILY 10/17 1000 AC 10/18 PO 0853 Artificial Tears 2 GTT 4 TIMES/DAY 10/16 2244 AC 10/18 OPH 1746 Chlorthalidone 25 MG QAM 10/17 1000 AC 10/18 PO 0854 Dicyclomine HCl 20 MG 4 TIMES/DAY PRN 10/17 2215 AC PO Docusate Sodium 100 MG DAILY 10/17 1000 AC 10/18 PO 0854 Ezetimibe 10 MG DAILY 10/17 1000 AC 10/18 PO 0853 Ferrous Sulfate 325 MG BID 10/17 1000 AC 10/18 PO 0854 Fluticasone 2 SPRAY DAILY 10/17 1000 AC 10/18 Propionate JEF 0854 Gemfibrozil 600 MG BID 10/16 223 DC 10/18 PO 0854 Heparin Sodium 25,000 UNIT Q24H 10/17 0915 AC 10/18 (Porcine) IV 10/19 0600 0855 Sodium Chloride 500 ML Levothyroxine Sodium 0.137 MG 0700 10/17 0700 AC 10/18 PO 0621 Magnesium Hydroxide 5 ML Q12P PRN 10/16 2245 AC PO Memantine 10 MG BID 10/16 223 AC 10/18 PO 0854 Metoprolol Tartrate 75 MG BID 10/17 1000 AC 10/18 PO 0854 Morphine Sulfate 2 MG Q6-PRN PRN 10/16 2229 AC IV Nitroglycerin 0.4 MG DAILY 10/17 1000 AC 10/18 TOP 0854 Omeprazole 40 MG DAILY AC 10/17 0700 AC 10/18 PO 0620 Oxycodone HCl 5 MG .STK-MED ONE 10/17 2149 DC PO 10/17 215 Oxycodone HCl 5 MG Q6P PRN 10/16 2229 AC 10/17 PO 2150 Prednisolone 1 GTT DAILY 10/17 1000 AC 10/18 OPH 0854 Sodium Chloride 1,000 ML .[id number] 10/165 DC 10/17 IV 10/18 0054 2106 Tamsulosin HCl 0.4 MG QPM 10/17 220 AC 10/17 PO 2110 Tramadol HCl 50 MG Q8P PRN 10/17 0230 AC 10/17 PO 2338 Results Pertinent Lab Results: Laboratory Tests 10/18 10/18 10/18 10/18 1350 0640 0600 0150 Chemistry Sodium (137 - 145 mmol/L) 137 Potassium (3.5 - 5.1 mmol/L) 3.7 Chloride (98 - 107 mmol/L) 99 Carbon Dioxide (22 - 30 mmol/L) 32 H Anion Gap (5 - 16) 6 BUN (9 - 20 mg/dL) 13 Creatinine (0.7 - 1.2 mg/dL) 0.9 Estimated GFR (>60 ml/min) > 60 BUN/Creatinine Ratio (7 - 25 %) 14.4 Total Bilirubin (0.2 - 1.3 mg/dL) 0.7 Direct Bilirubin (< 0.4 mg/dL) 0.2 AST (17 - 59 U/L) 47 ALT (21 - 72 U/L) 200 H Alkaline Phosphatase (< 127 U/L) 273 H Total Protein (6.3 - 8.2 g/dL) 5.7 L Albumin (3.5 - 5.0 g/dL) 3.0 L Coagulation PT (9.4 - 12.5 SEC) 18.3 H INR (0.90 - 1.17) 1.75 H APTT (25 - 37 SEC) 114 *H 74 H Hematology CBC w Diff NO MAN DIFF REQ WBC (4.8 - 10.8 /CUMM) 6.0 RBC (4.70 - 6.10 /CUMM) 5.52 Hgb (14.0 - 18.0 G/DL) 15.4 Hct (42 - 52 %) 46.1 MCV (80.0 - 94.0 FL) 83.5 MCH (27.0 - 31.0 PG) 27.8 RDW (11.5 - 14.5 %) 15.9 H Plt Count (130 - 400 /CUMM) 181 MPV (7.4 - 10.4 FL) 7.6 Gran % (42.2 - 75.2 %) 48.5 Lymphocytes % (20.5 - 51.1 %) 40.0 Monocytes % (1.7 - 9.3 %) 9.7 H Eosinophils % (0 - 5 %) 1.2 Basophils % (0.0 - 2.0 %) 0.6 Absolute Granulocytes (1.4 - 6.5 /CUMM) 2.9 Absolute Lymphocytes (1.2 - 3.4 /CUMM) 2.4 Absolute Monocytes (0.10 - 0.60 /CUMM) 0.6 Absolute Eosinophils (0.0 - 0.7 /CUMM) 0.1 Absolute Basophils (0.0 - 0.2 /CUMM) 0 PUBS MCHC (33.0 - 37.0 G/DL) 33.3 Immunology RAMANA Titer Pending Anti-Nuclear Antibody Pending Serology Hepatitis A IgM Ab (NONREACTIVE) NONREACTIVE Hep Bs Antibody (NONREACTIVE) NONREACTIVE Hep B Core IgM Ab Conf (NONREACTIVE) NONREACTIVE Hepatitis C Antibody (NONREACTIVE) REACTIVE H HIV 1&2 Ab Western Blot (NONREACTIVE) NONREACTIVE 10/17 10/17 1900 1823 Coagulation APTT (25 - 37 SEC) 106 *H Toxicology Urine Opiates Screen (>2000 NG/ML) 148.00 Methadone Screen (>300 NG/ML) < 40 Barbiturate Screen (>200 NG/ML) < 60 Ur Phencyclidine Scrn (>25 NG/ML) < 6.00 Amphetamines Screen (>1000 NG/ML) < 100 U Benzodiazepines Scrn (>200 NG/ML) < 85 Urine Cocaine Screen (>300 NG/ML) < 50 Urine Cannabis Screen (>50 NG/ML) < 5.00 Urines Urine Color (YEL,AMB,STR) YEL Urine Clarity (CLEAR) CLEAR Urine pH (5.0 - 8.0) 7.5 Ur Specific Tichnor (1.001 - 1.035) 1.010 Urine Protein (NEG,<30 MG/DL) NEG Urine Ketones (NEG) NEG Urine Nitrite (NEG) NEG Urine Bilirubin (NEG) NEG Urine Urobilinogen (0.1 - 1.0 EU/dl) 0.2 Ur Leukocyte Esterase (NEG) NEG Ur Microscopic EXAM NOT REQUIRED Urine Hemoglobin (NEG) NEG Urine Glucose (N MG/DL) NEG 10/17 10/17 10/16 0604 0600 1841 Chemistry Sodium (137 - 145 mmol/L) 139 Potassium (3.5 - 5.1 mmol/L) 4.0 Chloride (98 - 107 mmol/L) 100 Carbon Dioxide (22 - 30 mmol/L) 30 Anion Gap (5 - 16) 9 BUN (9 - 20 mg/dL) 14 Creatinine (0.7 - 1.2 mg/dL) 0.7 Estimated GFR (>60 ml/min) > 60 BUN/Creatinine Ratio (7 - 25 %) 20.0 Total Bilirubin (0.2 - 1.3 mg/dL) 0.8 Direct Bilirubin (< 0.4 mg/dL) 0.2 AST (17 - 59 U/L) 95 H ALT (21 - 72 U/L) 293 H Alkaline Phosphatase (< 127 U/L) 314 H Troponin I (<0.11 ng/ml) 0.03 Cancelled < 0.01 Total Protein (6.3 - 8.2 g/dL) 6.3 Albumin (3.5 - 5.0 g/dL) 3.4 L Coagulation PT (9.4 - 12.5 SEC) 25.4 H INR (0.90 - 1.17) 2.44 H Hematology CBC w Diff NO MAN DIFF REQ WBC (4.8 - 10.8 /CUMM) 7.1 RBC (4.70 - 6.10 /CUMM) 5.77 Hgb (14.0 - 18.0 G/DL) 15.9 Hct (42 - 52 %) 48.1 MCV (80.0 - 94.0 FL) 83.4 MCH (27.0 - 31.0 PG) 27.6 RDW (11.5 - 14.5 %) 15.8 H Plt Count (130 - 400 /CUMM) 202 MPV (7.4 - 10.4 FL) 7.4 Gran % (42.2 - 75.2 %) 54.6 Lymphocytes % (20.5 - 51.1 %) 34.2 Monocytes % (1.7 - 9.3 %) 9.8 H Eosinophils % (0 - 5 %) 0.9 Basophils % (0.0 - 2.0 %) 0.5 Absolute Granulocytes (1.4 - 6.5 /CUMM) 3.9 Absolute Lymphocytes (1.2 - 3.4 /CUMM) 2.4 Absolute Monocytes (0.10 - 0.60 /CUMM) 0.7 H Absolute Eosinophils (0.0 - 0.7 /CUMM) 0.1 Absolute Basophils (0.0 - 0.2 /CUMM) 0 PUBS MCHC (33.0 - 37.0 G/DL) 33.1 Immunology Anti-Mitochondrial Ab Pending 10/16 1457 Chemistry Sodium (137 - 145 mmol/L) 139 Potassium (3.5 - 5.1 mmol/L) 4.3 Chloride (98 - 107 mmol/L) 97 L Carbon Dioxide (22 - 30 mmol/L) 32 H Anion Gap (5 - 16) 10 BUN (9 - 20 mg/dL) 18 Creatinine (0.7 - 1.2 mg/dL) 0.7 Estimated GFR (>60 ml/min) > 60 BUN/Creatinine Ratio (7 - 25 %) 25.7 H Glucose (65 - 99 mg/dL) 101 H Calcium (8.4 - 10.2 mg/dL) 9.5 Iron (49 - 181 ug/dL) 99 TIBC (261 - 462 ug/dL) 322 Ferritin (17.9 - 464 ng/mL) 293.0 Total Bilirubin (0.2 - 1.3 mg/dL) 0.8 Direct Bilirubin (< 0.4 mg/dL) 0.3 AST (17 - 59 U/L) 174 H ALT (21 - 72 U/L) 408 H Alkaline Phosphatase (< 127 U/L) 347 H Troponin I (<0.11 ng/ml) 0.01 Total Protein (6.3 - 8.2 g/dL) 7.1 Albumin (3.5 - 5.0 g/dL) 4.0 Globulin (1.9 - 4.2 gm/dL) 3.1 Albumin/Globulin Ratio (1.1 - 2.2 %) 1.3 Amylase (30 - 110 U/L) 63 Lipase (23 - 300 U/L) 102 Coagulation PT (9.4 - 12.5 SEC) 35.6 H INR (0.90 - 1.17) 3.43 H Hematology CBC w Diff NO MAN DIFF REQ WBC (4.8 - 10.8 /CUMM) 8.9 RBC (4.70 - 6.10 /CUMM) 5.95 Hgb (14.0 - 18.0 G/DL) 16.5 Hct (42 - 52 %) 49.6 MCV (80.0 - 94.0 FL) 83.3 MCH (27.0 - 31.0 PG) 27.7 RDW (11.5 - 14.5 %) 15.8 H Plt Count (130 - 400 /CUMM) 225 MPV (7.4 - 10.4 FL) 7.2 L Gran % (42.2 - 75.2 %) 65.9 Lymphocytes % (20.5 - 51.1 %) 22.9 Monocytes % (1.7 - 9.3 %) 9.1 Eosinophils % (0 - 5 %) 1.4 Basophils % (0.0 - 2.0 %) 0.7 Absolute Granulocytes (1.4 - 6.5 /CUMM) 5.9 Absolute Lymphocytes (1.2 - 3.4 /CUMM) 2.0 Absolute Monocytes (0.10 - 0.60 /CUMM) 0.8 H Absolute Eosinophils (0.0 - 0.7 /CUMM) 0.1 Absolute Basophils (0.0 - 0.2 /CUMM) 0.1 PUBS MCHC (33.0 - 37.0 G/DL) 33.3 Imaging/Other Studies: 10/16/2016: EKG- NSR @ 72, normal axis, normal intervals, LVH, Q anteroseptal. 10/16/2016: CT ABD & PELVIS ANGIOGRAM; CTA CHEST-AORTIC DISSECTION- 1. No evidence of aortic dissection. No acute vascular abnormalities are identified in the chest, abdomen, and pelvis. 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 Previously seen subcentimeter pulmonary emboli are not identified on the current study and have largely resolved. 2. Expected evolutionary changes and decrease in size of the subcapsular hematoma at the left kidney. Large 6.9 cm right renal cyst, without change & multiple left renal cysts. 3. Inflamed, torsed epiploic appendage at the anterior margin of the descending colon (epiploic appendagitis). This may be symptomatic. Small fat containing LIH. 4. Choledocholithiasis (4 mm stone). No biliary ductal dilatation. Post CCKY. 5. Prostatomegaly. 6. DJD. T-L scoliosis.
[2016-10-18 21:09] LABS: PTT 39 SEC (25-37)
[2016-10-18 22:34] VITALS: BP 129/73
[2016-10-19 06:09] LABS: PTT > 120 SEC (25-37)
--- NOTE | 2016-10-19 07:19 | PN- Housestaff ---
SINTIA GARCIA,[facility] 10/19/16 0718: Subjective Follow-up For: Choledocholithiasis Epipploic Appendagitis Supratherapeutic INR with H/O of DVT/PE Subacute Subcapsular Hematoma Subjective: Patient was sleeping comfortably. Woke up to state that the left side of his abdomen in sore, but no other complaints. Review of Systems Constitutional: Reports: see HPI. Objective Last 24 Hrs of Vital Signs/I&O Vital Signs Date Time Temp Pulse Resp B/P B/P Pulse O2 O2 Flow FiO2 Mean Ox Delivery Rate 10/19 0742 98.2 74 18 140/84 93 Room Air 10/18 2234 98.4 65 18 129/73 92 Room Air 10/18 2047 66 130/73 10/18 1415 97.5 63 20 120/80 94 Room Air Intake & Output 10/19 1600 10/19 0800 10/19 0000 Intake Total 235 555 Output Total 500 900 Balance -265 -345 Intake, IV 175 75 Intake, Oral 60 480 Output, Urine 500 900 Physical Exam General Appearance: Alert, Oriented X3, Cooperative, No Acute Distress Cardiovascular: Regular Rate, Normal S1, Normal S2, No Murmurs Lungs: Clear to Auscultation, Normal Air Movement Abdomen: Tenderness present all over the left side of the abdomen. No tenderness present in the RUQ. Neurological: Normal Speech, Strength at 5/5 X4 Ext, Normal Tone, Sensation Intact Extremities: No Edema Assessment/Plan Assessment: 71 y/o M qith PMH of HTN, CAD s/p stent and 2 vessel CABG, bioprosthetic AVR, DENA on CPAP, HTN and recent hospitalization for subcapsular and RP hematoma s/p ESWL, now on Coumadin for DVT, who presents to the ED with abnormal LFT's noted by his PCP. He did experience some epigastric and RUQ pain over the last 48 hours. CTA A/P showed thr presence of choledocholithiasis with no biliary duct dilation and torsed epiploic appendagitis. Trops x 3 were negative. Problem List: 1) Choledocholithiasis with elevated LFT's 2) CTA A/P showing epiploic appendagitis. 3) H/O CAD s/p CABG with recent stress test showing the presence of small region of ischemia in the inferior wall. 4) Bioprosthetic AVR 5) H/O DVT/PE on Coumadin 5) DENA on CPAP 6) HTN Plan: * Monitor on GM * Patient has been seen by GI, scheduled for an ERCP to be done on 10/19. Monitor LFT's till then. LFT's currently trending down, with resolution of RUQ pain. * Currently on IV heparin per Cardiology for high risk, till the procedure. Check INR in AM. * Continue other home medications for now. * NPO past midnight, tomorrow night, for procedure on 10/19. * Pain Management: Currently on Morphine 2 mg Q6PRN IV and Roxicodone 5 mg Q6P. Well controlled. continue for now. * DVT PPx: Heparin gtt * Code Status: Full Code. Problem List: 1. Choledocholithiasis Pain Ratin Pain Location: Left side of the abdomen. Pain Goal: Pain 4 or less Pain Plan: Per EMR Tomorrow's Labs & Rationales: CBC, BEP, LFT, INR DVT/Prophylaxis: pharmacological Consulting Request: Consulting Specialty: Gastroenterology Consulting Physician: Dr. Luis KNOWLES MD,[facility] 10/19/16 1028: Attending MD Review Statement Attending Statement Attending MD Statement: examined this patient, discuss w/resident/PA/WHITE MIXING OPERATOR, agreed w/resident/PA/WHITE MIXING OPERATOR, reviewed EMR data (avail) Attending Assessment/Plan: 71M PMH HTN, CAD s/p stent and 2 vessel CABG, bioprosthetic AVR, DENA on CPAP, HTN and recent hospitalization for subcapsular and RP hematoma s/p ESWL, now on Coumadin for DVT admitted for severe abdominal pain with choledocholithiasis on imaging with transaminitis. Patient reports pain is improved but still present. Afebrile, normal WBC, no evidence of cholangitis. 1. Choledocholithiasis 2. Transaminitis 3. Bioprosthetic aortic valve replacement 4. History of DVT 5. History of CAD Plan - Continue on general medicine - ERCP today - Advance diet post-procedure - Heparin drip until procedure - Daily INR, restart Coumadin after procedure - Daily LFTs - Follow GI recommendations - Continue home medications - DVT PPx - Given recency of DVT, will require heparin bridging until INR is therapeutic
[2016-10-19 07:42] VITALS: BP 140/84
[2016-10-19 08:06] LABS: ABSOLUTE BASOPHIL COUNT 0 /CUMM (0.0-0.2); ABSOLUTE EOSINOPHIL COUNT 0.1 /CUMM (0.0-0.7); ABSOLUTE GRANULOCYTE CT 3.2 /CUMM (1.4-6.5); ABSOLUTE LYMPH COUNT 2.3 /CUMM (1.2-3.4); ABSOLUTE MONOCYTE COUNT 0.6 /CUMM (0.10-0.60); BASOPHIL % 0.7 % (0.0-2.0); EOSINOPHIL % 1.4 % (0-5); GRANULOCYTE % 51.8 % (42.2-75.2); HEMATOCRIT 48.5 % (42-52); MEAN CORPUSCULAR HGB CONC 33.7 G/DL (33.0-37.0); MEAN CORPUSCULAR VOLUME 83.3 FL (80.0-94.0); MEAN PLATELET VOLUME 7.5 FL (7.4-10.4); PLATELET COUNT 186 /CUMM (130-400); RBC DISTRIBUTION WIDTH 15.4 % (11.5-14.5); RED BLOOD CELL CT 5.82 /CUMM (4.70-6.10); WHITE BLOOD CELL COUNT 6.1 /CUMM (4.8-10.8)
[2016-10-19 08:14] LABS: PT 16.8 SEC (9.4-12.5)
--- NOTE | 2016-10-19 08:20 | PN- Gastroenterology ---
Assessment/Plan Assessment/Recommendations: 71-year-old male with extensive past medical and past surgical history, ASHD post IWMI- stent 12/2002, post CABG x 2 05/21/2014 with bovine AVR, transient postop afib (NSR), HTN, HLD, DM, PVD post B/L fempop & R CEA, DENA, hypoT4, Ca2+ nephrolithiasis, DJD, gout, BPH, open CCKY at [facility] in 01/2015 for gallstone pancreatitis (c/b bleeding with transfusion then), history of Hepatitis C (reportedly treated in our old office pre-EMR, with what sounds like PEG IFN & Ribaviron; limited old records in outpatient EMR- presumably achieved SVR, but not documented). : HIV- negative. He complained his risk factor for Hep C was that his ex- used IV drugs. *Please note, the patient was hospitalized at [facility] 07/24/16 - 08/03/16 for left flank pain, subcapsular left renal hematoma with retroperitoneal extension (post ASA 325), post 07/24/16: ESWL for left renal stone, c/b EKG changes, elevated troponin, and IL. He was then readmitted to [facility] 08/16/16 - 08/22/16, with acute right-sided pleuritic chest pain and CTA showing bilateral subsegmental PE, with no evidence of right heart strain. *Doppler of LLE was postive for DVT then. The patient was given IV heparin & bridged to Coumadin. IVC filter was recommended by cardiology, in the setting of recent left renal subcapsular hematoma, but it was deemed unnecessary per hematology at that point. Therefore, an IVC filter was not placed. He was discharged on Coumadin 0.5 mg daily and taken off full-strength aspirin. The patient presented to the [facility] 10/16/2016 at 2:32 PM, sent in by his PMD for further evaluation of elevated LFTs obtained 2 days [employer] and vague abdominal pain. Upon arrival, BP 147/91, P 70, R 18, T 97.9, O2 sat RA 95%. The patient stated he has had chronic intermittent episodes of abdominal pain since the left renal subcapsular hematoma extending to the retroperitoneum 3 months prior, at times epigastric in nature, but currently with bilateral lower abdominal discomfort, radiating to the left flank. At times he also notes vague nonexertional chest pain, with a pressure sensation when driving his car. The symptoms worsened over the past 2 days [employer]. The symptoms alternate between dull and sharp in quality, approximately "7 out of 10". He denied any shortness of breath, diaphoresis, pleuritic pain, or hemoptysis. He denied any nausea, vomiting, fevers, chills, jaundice, dark urine, light stool, pruritus, GERD, odynophagia, dysphagia, or early satiety. He claims he lost 30 pounds over the last 3 months since the subcapsular hematoma in 07/2016. He denied any hematemesis, rectal bleeding, or melena. He has a bowel movement daily on MiraLAX. He denied any change in bowel habits. Aside from minimal constipation, he denied any diarrhea, constipation, or tenesmus. There is no family history of GI disease, GI malignancy, or inherited liver disease. With regards to his LFTs, he denied any new outpatient medications. He was on a statin (Crestor), which was held on admission. He had been on this for some time. He had a slightly supratherapeutic INR on admission. *A recent outpatient stress test by Dr. Allison disclosed a small region of ischemia in the inferior wall. The ER initially told the GI service on the evening of 10/16/2016 that the patient was being discharged for outpatient workup, but I found that he was admitted this morning. *The patient's Coumadin was held this admission and he was bridged IV heparin. 11/10/2010: Combined upper endoscopy to the third portion of the duodenum with biopsies, plus colonoscopy to the terminal ileum, with prophylactic clipping x1, plus BICAP polypectomy, in addition to random biopsies at different sites, was performed by myself for questionable melena & questionable rectal bleeding ( brown, OB-negative stool then)- no varices, no portal gastropathy, moderate chronic gastritis, H. pylori negative on biopsies, mild GERD on biopsies without Constantino's or EOE, random biopsies D2/D3-negative; random biopsies of terminal ileum, colon, and rectum- negative, no true polyp tissue in left colon, but rather benign lymphoid aggregate. (*A follow-up colonoscopy was advised in 10 years, as per current average-risk for colon cancer screening guidelines, namely 11/2020). In 11/2010, Prilosec was switched to Prevpac for 14 days, to be followed by [facility], for a 11/15/2010: positive H. pylori antibody. 10/16/2016: Admission labs- WBC 8.9, H/H 16.5/49.6, normal MCV, PLT 225, PTT 35.6, INR 3.43; glucose 93, BUN/Cr 12/0.8, GFR > 60, normal electrolytes, * normal LFTs except alk phos 182, troponin < 0.01 (x 2), BNP 210, normal FT4 with normal TSH 1.42 10/16/2016: Amylase 63, lipase 102, albumin 4.0, globulin 3.1, TBil 0.8, DBil 0.3, *alk phos 347, *AST 174, *ALT 408 (repeat LFTs). 10/17/2016: CBC 7.1, H/H 15.9/40.1, PLT 202, PT 25.4, INR 2.44, PTT 106 (on IV heparin); troponin .03, abdomen 3.4, globulin 2.9, TBil 0.8, DBil 0.2, alk phos 314, AST 95, ALT 293 10/17/2016: U/A- clear, yellow, 1.010, 7.5; otherwise negative (no RBC) 10/17/2016: U Tox- negative 10/16/2016: EKG- NSR @ 72, normal axis, normal intervals, LVH, Q anteroseptal 10/16/2016: CT ABD & PELVIS ANGIOGRAM; CTA CHEST-AORTIC DISSECTION- 1. No evidence of aortic dissection. No acute vascular abnormalities are identified in the chest, abdomen, and pelvis. 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 Previously seen subcentimeter pulmonary emboli are not identified on the current study and have largely resolved. 2. Expected evolutionary changes and decrease in size of the subcapsular hematoma at the left kidney. Large 6.9 cm right renal cyst, without change & multiple left renal cysts. 3. Inflamed, torsed epiploic appendage at the anterior margin of the descending colon (epiploic appendagitis). This may be symptomatic. Small fat containing LIH. 4. Choledocholithiasis (4 mm stone). No biliary ductal dilatation. Post CCKY. 5. Prostatomegaly. 6. DJD. T-L scoliosis. *The patient has a tiny CBD stone. His vague abdominal symptoms and chest symptoms have waxed and waned over the past 3 months, since his left renal subcapsular hematoma extending into the retroperitoneum, which is resolving. I am not convinced his presenting GI symptoms are necessarily from the CBD stone, however this should be removed. He has no signs or symptoms of cholangitis & clinically does not need antibiotics. The epiploic appendagitis seen on CT is probably incidental in nature, as is his small LIH. He did have fluctuating LFTs , which could have been related to the CBD stone. *Please note, he was presumably treated with PEG IFN/Ribaviron for Hep C in 2010, although I do not have any old records substantiating SVR. The relatively recent IL (07/2016) and PE with LLE DVT (08/2016) are noted. *The patient does not have an IVC filter. He was on Coumadin predominantly for the recent PE/LLE DVT, not necessarily for the transient postop afib that he had over a year ago. According to my discussion with Dr. Allison, of cardiology, it is okay to hold his Coumadin for ERCP. However, hematology should see the patient to comment on eventual resumption of Coumadin, especially if a papillotomy is entertained. At the moment, his Coumadin is on hold and he is being bridged with IV heparin. His statins (Crestor), have been held on admission, but this probably has little to do with his LFTs. *As of 10/18/2016, the patient remains hemodynamically stable and afebrile. He has no signs or symptoms of cholangitis. He remains in NSR. Troponins have been negative. He tolerated clears po. His vague abdominal pain appears to have resolved. I do not think this was related to the CBD stone, but rather to his previous hematoma. LFTs are slowly improving. INR slowly normalizing off Coumadin, with supratherapeutic PTT on IV heparin (adjusted). *The patient was seen 10/18/2016 by hematology, who advised a bridge with heparin for ERCP and a bridge to Coumadin after ERCP, as the patient was felt to be at risk for a new venous thrombotic event, being that he had a provoked, recent PE/LLE DVT in 3016. There is no CP or SOB. 10/16/2016: Fe 99, TIBC 322, Fe sat 30.7%, ferritin 293 10/17/2016: *AMA- pending 10/18/2016: *RAMANA- pending 10/18/2016: HIV-neg, HAVM- neg, Hep Bs Ab- neg, Hep B core Ab- neg; + Hep C Ab ( *not useful in checking for active replication), PT 18.3, INR 1.75 (off Coumadin ), PTT 114 (on IV heparin), WBC 6.0, H/H 15.4/46.1, PLT 181, GFR > 60, albumin 3.0, globulin 2.7, TBil 0.7, DBil 0.2, alk phos 273, AST 47, ALT 200. 200negwwwwwwwwwwwwwwwwwwwwwwwwwwwwwwwwwwwwwwwwwwwwwwwwwwwwwwwwwwwwwwwwwwwwwwww wwwwwwwwwwwwwwwwwwwwwwwwwwwwwwwwwwwwwwwwwwwwwwwwwwwwwwwwwwwwwwwwwwwwwwwwwwwwww wwwwwwwwwwwwwwwwwwwwwwwwwwwwwwwwwwwwwwwwwwwwwwwwwwwwwwwwwwwwwwwwwwwwwwwwwwwwww wwwwwwwwwwwwwwwwwwwwwwwwwwwwwwwwwwwwwwwwwwwwwwwwwwwwwwwwwwwwwwwwwwwwwwwwwwwwww wwwwwwwwwwwwwwwwwwwwwwwwwwwwwwwwwwwwwwwwwwwwwwwwwwwwwwwwwwwwwwwwwwwwwwwwwwwwww wwwwwwwwwwwwwwwwwwwwwwwwwwwwwwwwwwwwwwwwwwwwwwwwwwwwwwwwwwwwwwwwwwwwwwwwwwwwww wwwwwwwwwwwwwwwwwwwwwwwwwwwwwwwwwwwwwwwwwwwwwwwwwwwwwwwwwwwwwwwwwwwwwwwwwwwwww wwwwwwwwwwwwwwwwwwwwwwwwwwwwwwwwwwwwwwwwwwwwwwwwwwwwwwwwwwwwwwwwwwwwwwwwwwwwww wwwwwwwwwwwwwwwwwwwwwwwwwwwwwwwwwwwwwwwwwwwwwwwwwwwwwwwwwwwwwwwwwwwwwwwwwwwwww wwwwwwwwwwwwwwwwwwwwwwwwwwwwwwwwwwwwwwwwwwwwwwwwwwwwwwwwwwwwwwwwwwwwwwwwwwwwww wwwwwwwwwwwwwwwwwwwwwwwwwwwwwwwwwwwwwwwwwwwwwwwwwwwwwwwwwwwwwwwwwwwwwwwwwwwwww wwwwwwwwwwwwwwwwwwwwwwwwwwwwwwwwwwwwwwwwwwwwwwwwwwwwwwwwwwwwwwwwwwwwwwwwwwwwww wwwwwwwwwwwwwwwwwwwwwwwwwwwwwwwwwwwwwwwwwwwwwwwwwwwwwwwwwwwwwwwwwwwwwwwwwwwwww wwwwwwwwwwwwwwwwwwwwwwwwwwwwwwwwwwwwwwwwwwwwwwwwwwwwwwwwwwwwwwwwwwwwwwwwwwwwww wwwwwwwwwwwwwwwwwwwwwwwwwwwwwwwwwwwwwwwwwwwwwwwwwwwwwwwwwwwwwwwwwwwwwwwwwwwwww wwwwwwwwwwwwwwwwwwwwwwwwwwwwwwwwwwwwwwwwwwwwwwwwwwwwwwwwwwwwwwwwwwwwwwwwwwwwww wwwwwwwwwwwwwwwwwwwwwwwwwwwwwwwwwwwwwwwwwwwwwwwwwwwwwwwwwwwwwwwwwwwwwwwwwwwwww wwwwwwwwwwwwwwwwwwwwwwwwwwwwwwwwwwwwwwwwwwwwwwwwwwwwwwwwwwwwwwwwwwwwwwwwwwwwww wwwwwwwwwwwwwwwwwwwwwwwwwwwwwwwwwwwwwwwwwwwwwwwwwwwwwwwwwwwwwwwwwwwwwwwwwwwwww wwwwwwwwwwwwwwwwwwwwwwwwwwwwwwwwwwwwwwwwwwwwwwwwwwwwwwwwwwwwwwwwwwwwwwwwwwwwww wwwwwwwwwwwwwwwwwwwwwwwwwwwwwwwwwwwwwwwwwwwwwwwwwwwwwwwwwwwwwwwwwwwwwwwwwwwwww wwwwwwwwwwwwwwwwwwwwwwwwwwwwwwwwwwwwwwwwwwwwwwwwwwwwwwwwwwwwwwwwwwwwwwwwwwwwww wwwwwwwwwwwwwwwwwwwwwwwwwwwwwwwwwwwwwwwwwwwwwwwwwwwwwwwwwwwwwwwwwwwwwwwwwwwwww wwwwwwwwwwwwwwwwwwwwwwwwwwwwwwwwwwwwwwwwwwwwwwwwwwwwwwwwwwwwwwwwwwwwwwwwwwwwww wwwwwwwwwwwwwwwwwwwwwwwwwwwwwwwwwwwwwwwwwwwwwwwwwwwwwwwwwwwwwwwwwwwwwwwwwwwwww wwwwwwwwwwwwwwwwwwwwwwwwwwwwwwwwwwwwwwwwwwwwwwwwwwwwwwwwwwwwwwwwwwwwwwwwwwwwww wwwwwwwwwwwwwwwwwwwwwwwwwwwwwwwwwwwwwwwwwwwwwwwwwwwwwwwwwwwwwwwwwwwwwwwwwwwwww wwwwwwwwwwwwwwwwwwwwwwwwwwwwwwwwwwwwwwwwwwwwwwwwwwwwwwwwwwwwwwwwwwwwwwwwwwwwww wwwwwwwwwwwwwwwwwwwwwwwwwwwwwwwwwwwwwwwwwwwwwwwwwwwwwwwwwwwwwwwwwwwwwwwwwwwwww wwwwwwwwwwwwwwwwwwwwwwwwwwwwwwwwwwwwwwwwwwwwwwwwwwwwwwwwwwwwwwwwwwwwwwwwwwwwww wwwwwwwwwwwwwwwwwwwwwwwwwwwwwwwwwwwwwwwwwwwwwwwwwwwwwwwwwwwwwwwwwwwwwwwwwwwwww wwwwwwwwwwwwwwwwwwwwwwwwwwwwwwwwwwwwwwwwwwwwwwwwwwwwwwwwwwwwwwwwwwwwwwwwwwwwww wwwwwwwwwwwwwwwwwwwwwwwwwwwwwwwwwwwwwwwwwwwwwwwwwwwwwwwwwwwwwwwwwwwwwwwwwwwwww wwwwwwwwwwwwwwwwwwwwwwwwwwwwwwwwwwwwwwwwwwwwwwwwwwwwwwwwwwwwwwwwwwwwwwwwwwwwww wwwwwwwwwwwwwwwwwwwwwwwwwwwwwwwwwwwwwwwwwwwwwwwwwwwwwwwwwwwwwwwwwwwwwwwwwwwwww wwwwwwwwwwwwwwwwwwwwwwwwwwwwwwwwwwwwwwwwwwwwwwwwwwwwwwwwwwwwwwwwwwwwwwwwwwwwww wwwwwwwwwwwwwwwwwwwwwwwwwwwwwwwwwwwwwwwwwwwwwwwwwwwwwwwwwwwwwwwwwwwwwwwwwwwwww wwwwwwwwwwwwwwwwwwwwwwwwwwwwwwwwwwwwwwwwwwwwwwwwwwwwwwwwwwwwwwwwwwwwwwwwwwwwww wwwwwwwwwwwwwwwwwwwwwwwwwwwwwwwwwwwwwwwwwwwwwwwwwwwwwwwwwwwwwwwwwwwwwwwwwwwwww wwwwwwwwwwwwwwwwwwwwwwwwwwwwwwwwwwwwwwwwwwwwwwwwwwwwwwwwwwwwwwwwwwwwwwwwwwsailajawww wwwwwwwwwwwwwwwwwwwwwwwwwwwwwwwwwwwwwwwwwwwwwwwwwwwwwwwwwwwwwwwwwwwwwwwwwwwwww wwwwwwwwwwwwwwwwwwwwwwwwwwwwwwwwwwwwwwwwwwwsamwwwwwwwwwwwwwwwwwwwwwwwwwwwww wwwwwwwwwwwwwwwwwwwwwwwwwwwwwangwwwwwwwwwwwwwwwwsailajawwwwwwwwwww wwwwwwwwwwwwwsailajawwwwwwmelissawwwwshimonwwwwwwwwwwwwwwwwwwwwwwwwwwwwwwww wwwwwwwwwwwwwwwwwwwwwwwwwwwwwwwwwwwwwwwwwwwwwwwwwwwwwwwwwwwwwwwwwwwwwwwwwwwwww wwwwwwwwwwwwwwwwwwwwwwwwwwwwwwwwwwwwwwwwwwwwwwwwwwwwwwwwwwwwwwwwwwwwwwwwwwwwww wwwwwwwwwwwwwwwwwwwwwwwwwwwwwwwwwwwwwwwwwwwwwwwwwwwwwwwwwwwwwwwwwwwwwwwwwwwwww wwwwwwwwwwwwwwwwwwwwwwwwwwwwwwwwwwwwwwwwwwwwwwwwwwwwwwwwwwwwwwwwwwwwwwwwwwwwww wwwwwwwwwwwwwwwwwwwwwwwwwwwwwwwwwwwwwwwwwwwwwwwwwwwwwwwwwwwwwwwwwwwwwwwwwwwwww wwwwwwwwwwwwwwwwwwwwwwwwwwwwwwwwwwwwwwwwwwwwwwwwwwwwwwwwwwwwwwwwwwwwwwwwwwwwww wwwwwwwwwwwwwwwwwwwwwwwwwwwwwwwwwwwwwwwwwwwwwwwwwwwwwwwwwwwwwwwwwwwwwwwwwwwwww wwwwwwwwwwwwwwwwwwwwwwwwwwwwwwwwwwwwwwwwwwwwwwwwwwwwwwwwwwwwwwwwwwwwwwwwwwwwww wwwwwwwwwwwwwwwwwwwwwwwwwwwwwwwwwwwwwwwwwwwwwwwwwwwwwwwwwwwwwwwwwwwwwwwwwwwwww wwwwwwwwwwwwwwwwwwwwwwwwwwwwwwwwwwwwwwwwwwwwwwwwwwwwwwwwwwwwwwwwwwwwwwwwwwwwww wwwwwwwwwwwwwwwwwwwwwwwwwwwwwwwwwwwwwwwwwwwwwwwwwwwwwwwwwwwwwwwwwwwwwwwwwwwwww wwwwwwwwwwwwwwwwwwwwwwwwwwwwwwwwwwwwwwwwwwwwwwwwwwwwwwwwwwwwwwwwwwwwwwwwwwwwww wwwwwwwwwwwwwwwwwwwwwwwwwwwwwwwwwwwwwwwwwwwwwwwwwwwwwwwwwwwwwwwwwwwwwwwwwwwwww wwwwwwwwwwwwwwwwwwwwwwwwwwwwwwwwwwwwwwwwwwwwwwwwwwwwwwwwwwwwwwwwwwwwwwwwwwwwww wwwwwwwwwwwwwwwwwwwwwwwwwwwwwwwwwwwwwwwwwwwwwwwwwwwwwwwwwwwwwwwwwwwwwwwwwwwwww wwwwwwwwwwwwwwwwwwwwwwwwwwwwwwwwwwwwwwwwwwwwwwwwwwwwwwwwwwwwwwwwwwwwwwwwwwwwww wwwwwwwwwwwwwwwwwwwwwwwwwwwwwwwwwwwwwwwwwwwwwwwwwwwwwwwwwwwwwwwwwwwwwwwwwwwwww wwwwwwwwwwwwwwwwwwwwwwwwwwwwwwwwwwwwwwwwwwwwwwwwwwwwwwwwwwwwwwwwwwwwwwwwwwwwww wwwwwwwwwwwwwwwwwwwwwwwwwwwwwwwwwwwwwwwwwwwwwwwwwwwwwwwwwwwwwwwwwwwwwwwwwwwwww wwwwwwwwwwwwwwwwwwwwwwwwwwwwwwwwwwwwwwwwwwwwwwwwwwwwwwwwwwwwwwwwwwwwwwwwwwwwww wwwwwwwwwwwwwwwwwwwwwwwwwwwwwwwwwwwwwwwwwwwwwwwwwwwwwwwwwwwwwwwwwwwwwwwwwwwwww wwwwwwwwwwwwwwwwwwwwwwwwwwwwwwwwwwwwwwwwwwwwwwwwwwwwwwwwwwwwwwwwwwwwwwwwwwwwww wwwwwwwwwwwwwwwwwwwwwwwwwwwwwwwwwwwwwwwwwwwwwwwwwwwwwwwwwwwwwwwwwwwwwwwwwwwwww wwwwwwwwwwwwwwwwwwwwwwwwwwwwwwwwwwwwwwwwwwwwwwwwwwwwwwwwwwwwwwwwwwwwwwwwwwwwww wwwwwwwwwwwwwwwwwwwwwwwwwwwwwwwwwwwwwwwwwwwwwwwwwwwwwwwwwwwwwwwwwwwwwwwwwwwwww wwwwwwwwwwwwwwwwwwwwwwwwwwwwwwwwwwwwwwwwwwwwwwwwwwwwwwwwwwwwwwwwwwwwwwwwwwwwww wwwwwwwwwwwwwwwwwwwwwwwwwwwwwwwwwwwwwwwwwwwwwwwwwwwwwwwwwwwwwwwwwwwwwwwwwwwwww wwwwwwwwwwwwwwwwwwwwwwwwwwwwwwwwwwwwwwwwwwwwwwwwwwwwwwwwwwwwwwwwwwwwwwwwwwwwww wwwwwwwwwwwwwwwwwwwwwwwwwwwwwwwwwwwwwwwwwwwwwwwwwwwwwwwwwwwwwwwwwwwwwwwwwwwwww wwwwwwwwwwwwwwwwwwwwwwwwwwwwwwwwwwwwwwwwwwwwwwwwwwwwwwwwwwwwwwwwwwwwwwwwwwwwww wwwwwwwwwwwwwwwwwwwwwwwwwwwwwwwwwwwwwwwwwwwwwwwwwwwwwwwwwwwwwwwwwwwwwwwwwwwwww wwwwwwwwwwwwwwwwwwwwwwwwwwwwwwwwwwwwwwwwwwwwwwwwwwwwwwwwwwwwwwwwwwwwwwwwwwwwww wwwwwwwwwwwwwwwwwwwwwwwwwwwwwwwwwwwwwwwwwwwwwwwwwwwwwwwwwwwwwwwwwwwwwwwwwwwwww wwwwwwwwwwwwwwwwwwwwwwwwwwwwwwwwwwwwwwwwwwwwwwwwwwwwwwwwwwwwwwwwwwwwwwwwwwwwww wwwwwwwwwwwwwwwwwwwwwwwwwwwwwwwwwwwwwwwwwwwwwwwwwwwwwwwwwwwwwwwwwwwwwwwwwwwwww wwwwwwwwwwwwwwwwwwwwwwwwwwwwwwwwwwwwwwwwwwwwwwwwwwwwwwwwwwwwwwwwwwwwwwwwwwwwww wwwwwwwwwwwwwwwwwwwwwwwwwwwwwwwwwwwwwwwwwwwwwwwwwwwwwwwwwwwwwwwwwwwwwwwwwwwwww wwwwwwwwwwwwwwwwwwwwwwwwwwwwwwwwwwwwwwwwwwwwwwwwwwwwwwwwwwwwwwwwwwwwwwwwwwwwww wwwwwwwwwwwwwwwwwwwwwwwwwwwwwwwwwwwwwwwwwwwwwwwwwwwwwwwwwwwwwwwwwwwwwwwwwwwwww wwwwwwwwwwwwwwwwwwwwwwwwwwwwwwwwwwwwwwwwwwwwwwwwwwwwwwwwwwwwwwwwwwwwwwwwwwwwww wwwwwwwwwwwwwwwwwwwwwwwwwwwwwwwwwwwwwwwwwwwwwwwwwwwwwwwwwwwwwwwwwwwwwwwwwwwwww wwwwwwwwwwwwwwwwwwwwwwwwwwwwwwwwwwwwwwwwwwwwwwwwwwwwwwwwwwwwwwwwwwwwwwwwwwwwww wwwwwwwwwwwwwwwwwwwwwwwwwwwwwwwwwwwwwwwwwwwwwwwwwwwwwwwwwwwwwwwwwwwwwwwwwwwwww wwwwwwwwwwwwwwwwwwwwwwwwwwwwwwwwwwwwwwwwwwwwwwwwwwwwwwwwwwwwwwwwwwwwwwwwwwwwww wwwwwwwwwwwwwwwwwwwwwwwwwwwwwwwwwwwwwwwwwwwwwwwwwwwwwwwwwwwwwwwwwwwwwwwwwwwwww wwwwwwwwwwwwwwwwwwwwwwwwwwwwwwwwwwwwwwwwwwwwwwwwwwwwwwwwwwwwwwwwwwwwwwwwwwwwww wwwwwwwwwwwwwwwwwwwwwwwwwwwwwwwwwwwwwwwwwwwwwwwwwwwwwwwwwwwwwwwwwwwwwwwwwwwwww wwwwwwwwwwwwwwwwwwwwwwwwwwwwwwwwwwwwwwwwwwwwwwwwwwwwwwwwwwwwwwwwwwwwwwwwwwwwww wwwwwwwwwwwwwwwwwwwwwwwwwwwwwwwwwwwwwwwwwwwwwwwwwwwwwwwwwwwwwwwwwwwwwwwwwwwwww wwwwwwwwwwwwwwwwwwwwwwwwwwwwwwwwwwwwwwwwwwwwwwwwwwwwwwwwwwwwwwwwwwwwwwwwwwwwww wwwwwwwwwwwwwwwwwwwwwwwwwwwwwwwwwwwwwwwwwwwwwwwwwwwwwwwwwwwwwwwwwwwwwwwwwwwwww wwwwwwwwwwwwwwwwwwwwwwwwwwwwwwwwwwwwwwwwwwwwwwwwwwwwwwwwwwwwwwwwwwwwwwwwwwwwww wwwwwwwwwwwwwwwwwwwwwwwwwwwwwwwwwwwwwwwwwwwwwwwwwwwwwwwwwwwwwwwwwwwwwwwwwwwwww wwwwwwwwwwwwwwwwwwwwwwwwwwwwwwwwwwwwwwwwwwwwwwwwwwwwwwwwwwwwwwwwwwwwwwwwwwwwww wwwwwwwwwwwwwwwwwwwwwwwwwwwwwwwwwwwwwwwwwwwwwwwwwwwwwwwwwwwwwwwwwwwwwwwwwwwwww wwwwwwwwwwwwwwwwwwwwwwwwwwwwwwwwwwwwwwwwwwwwwwwwwwwwwwwwwwwwwwwwwwwwwwwwwwwwww wwwwwwwwwwwwwwwwwwwwwwwwwwwwwwwwwwwwwwwwwwwwwwwwwwwwwwwwwwwwwwwwwwwwwwwwwwwwww wwwwwwwwwwwwwwwwwwwwwwwwwwwwwwwwwwwwwwwwwwwwwwwwwwwwwwwwwwwwwwwwwwwwwwwwwwwwww wwwwwwwwwwwwwwwwwwwwwwwwwwwwwwwwwwwwwwwwwwwwwwwwwwwwwwwwwwwwwwwwwwwwwwwwwwwwww wwwwwwwwwwwwwwwwwwwwwwwwwwwwwwwwwwwwwwwwwwwwwwwwwwwwwwwwwwwwwwwwwwwwwwwwwwwwww wwwwwwwwwwwwwwwwwwwwwwwwwwwwwwwwwwwwwwwwwwwwwwwwwwwwwwwwwwwwwwwwwwwwwwwwwwwwww wwwwwwwwwwwwwwwwwwwwwwwwwwwwwwwwwwwwwwwwwwwwwwwwwwwwwwwwwwwwwwwwwwwwwwwwwwwwww wwwwwwwwwwwwwwwwwwwwwwwwwwwwwwwwwwwwwwwwwwwwwwwwwwwwwwwwwwwwwwwwwwwwwwwwwwwwww wwwwwwwwwwwwwwwwwwwwwwwwwwwwwwwwwwwwwwwwwwwwwwwwwwwwwwwwwwwwwwwwwwwwwwwwwwwwww wwwwwwwwwwwwwwwwwwwwwwwwwwwwwwwwwwwwwwwwwwwwwwwwwwwwwwwwwwwwwwwwwwwwwwwwwwwwww wwwwwwwwwwwwwwwwwwwwwwwwwwwwwwwwwwwwwwwwwwwwwwwwwwwwwwwwwwwwwwwwwwwwwwwwwwwwww wwwwwwwwwwwwwwwwwwwwwwwwwwwwwwwwwwwwwwwwwwwwwwwwwwwwwwwwwwwwwwwwwwwwwwwwwwwwww wwwwwwwwwwwwwwwwwwwwwwwwwwwwwwwwwwwwwwwwwwwwwwwwwwwwwwwwwwwwwwwwwwwwwwwwwwwwww wwwwwwwwwwwwwwwwwwwwwwwwwwwwwwwwwwwwwwwwwwwwwwwwwwwwwwwwwwwwwwwwwwwwwwwwwwwwww wwwwwwwwwwwwwwwwwwwwwwwwwwwwwwwwwwwwwwwwwwwwwwwwwwwwwwwwwwwwwwwwwwwwwwwwwwwwww wwwwwwwwwwwwwwwwwwwwwwwwwwwwwwwwwwwwwwwwwwwwwwwwwwwwwwwwwwwwwwwwwwwwwwwwwwwwww wwwwwwwwwwwwwwwwwwwwwwwwwwwwwwwwwwwwwwwwwwwwwwwwwwwwwwwwwwwwwwwwwwwwwwwwwwwwww wwwwwwwwwwwwwwwwwwwwwwwwwwwwwwwwwwwwwwwwwwwwwwwwwwwwwwwwwwwwwwwwwwwwwwwwwwwwww wwwwwwwwwwwwwwwwwwwwwwwwwwwwwwwwwwwwwwwwwwwwwwwwwwwwwwwwwwwwwwwwwwwwwwwwwwwwww wwwwwwwwwwwwwwwwwwwwwwwwwwwwwwwwwwwwwwwwwwwwwwwwwwwwwwwwwwwwwwwwwwwwwwwwwwwwww wwwwwwwwwwwwwwwwwwwwwwwwwwwwwwwwwwwwwwwwwwwwwwwwwwwwwwwwwwwwwwwwwwwwwwwwwwwwww wwwwwwwwwwwwwwwwwwwwwwwwwwwwwwwwwwwwwwwwwwwwwwwwwwwwwwwwwwwwwwwwwwwwwwwwwwwwww wwwwwwwwwwwwwwwwwwwwwwwwwwwwwwwwwwwwwwwwwwwwwwwwwwwwwwwwwwwwwwwwwwwwwwwwwwwwww wwwwwwwwwwwwwwwwwwwwwwwwwwwwwwwwwwwwwwwwwwwwwwwwwwwwwwwwwwwwwwwwwwwwwwwwwwwwww wwwwwwwwwwwwwwwwwwwwwwwwwwwwwwwwwwwwwwwwwwwwwwwwwwwwwwwwwwwwwwwwwwwwwwwwwwwwww wwwwwwwwwwwwwwwwwwwwwwwwwwwwwwwwwwwwwwwwwwwwwwwwwwwwwwwwwwwwwwwwwwwwwwwwwwwwww wwwwwwwwwwwwwwwwwwwwwwwwwwwwwwwwwwwwwwwwwwwwwwwwwwwwwwwwwwwwwwwwwwwwwwwwwwwwww wwwwwwwwwwwwwwwwwwwwwwwwwwwwwwwwwwwwwwwwwwwwwwwwwwwwwwwwwwwwwwwwwwwwwwwwwwwwww wwwwwwwwwwwwwwwwwwwwwwwwwwwwwwwwwwwwwwwwwwwwwwwwwwwwwwwwwwwwwwwwwwwwwwwwwwwwww wwwwwwwwwwwwwwwwwwwwwwwwwwwwwwwwwwwwwwwwwwwwwwwwwwwwwwwwwwwwwwwwwwwwwwwwwwwwww wwwwwwwwwwwwwwwwwwwwwwwwwwwwwwwwwwwwwwwwwwwwwwwwwwwwwwwwwwwwwwwwwwwwwwwwwwwwww wwwwwwwwwwwwwwwwwwwwwwwwwwwwwwwwwwwwwwwwwwwwwwwwwwwwwwwwwwwwwwwwwwwwwwwwwwwwww wwwwwwwwwwwwwwwwwwwwwwwwwwwwwwwwwwwwwwwwwwwwwwwwwwwwwwwwwwwwwwwwwwwwwwwwwwwwww wwwwwwwwwwwwwwwwwwwwwwwwwwwwwwwwwwwwwwwwwwwwwwwwwwwwwwwwwwwwwwwwwwwwwwwwwwwwww wwwwwwwwwwwwwwwwwwwwwwwwwwwwwwwwwwwwwwwwwwwwwwwwwwwwwwwwwwwwwwwwwwwwwwwwwwwwww wwwwwwwwwwwwwwwwwwwwwwwwwwwwwwwwwwwwwwwwwwwwwwwwwwwwwwwwwwwwwwwwwwwwwwwwwwwwww wwwwwwwwwwwwwwwwwwwwwwwwwwwwwwwwwwwwwwwwwwwwwwwwwwwwwwwwwwwwwwwwwwwwwwwwwwwwww wwwwwwwwwwwwwwwwwwwwwwwwwwwwwwwwwwwwwwwwwwwwwwwwwwwwwwwwwwwwwwwwwwwwwwwwwwwwww wwwwwwwwwwwwwwwwwwwwwwwwwwwwwwwwwwwwwwwwwwwwwwwwwwwwwwwwwwwwwwwwwwwwwwwwwwwwww wwwwwwwwwwwwwwwwwwwwwwwwwwwwwwwwwwwwwwwwwwwwwwwwwwwwwwwwwwwwwwwwwwwwwwwwwwwwww wwwwwwwwwwwwwwwwwwwwwwwwwwwwwwwwwwwwwwwwwwwwwwwwwwwwwwwwwwwwwwwwwwwwwwwwwwwwww wwwwwwwwwwwwwwwwwwwwwwwwwwwwwwwwwwwwwwwwwwwwwwwwwwwwwwwwwwwwwwwwwwwwwwwwwwwwww wwwwwwwwwwwwwwwwwwwwwwwwwwwwwwwwwwwwwwwwwwwwwwwwwwwwwwwwwwwwwwwwwwwwwwwwwwwwww wwwwwwwwwwwwwwwwwwwwwwwwwwwwwwwwwwwwwwwwwwwwwwwwwwwwwwwwwwwwwwwwwwwwwwwwwwwwww wwwwwwwwwwwwwwwwwwwwwwwwwwwwwwwwwwwwwwwwwwwwwwwwwwwwwwwwwwwwwwwwwwwwwwwwwwwwww wwwwwwwwwwwwwwwwwwwwwwwwwwwwwwwwwwwwwwwwwwwwwwwwwwwwwwwwwwwwwwwwwwwwwwwwwwwwww wwwwwwwwwwwwwwwwwwwwwwwwwwwwwwwwwwwwwwwwwwwwwwwwwwwwwwwwwwwwwwwwwwwwwwwwwwwwww wwwwwwwwwwwwwwwwwwwwwwwwwwwwwwwwwwwwwwwwwwwwwwwwwwwwwwwwwwwwwwwwwwwwwwwwwwwwww wwwwwwwwwwwwwwwwwwwwwwwwwwwwwwwwwwwwwwwwwwwwwwwwwwwwwwwwwwwwwwwwwwwwwwwwwwwwww wwwwwwwwwwwwwwwwwwwwwwwwwwwwwwwwwwwwwwwwwwwwwwwwwwwwwwwwwwwwwwwwwwwwwwwwwwwwww wwwwwwwwwwwwwwwwwwwwwwwwwwwwwwwwwwwwwwwwwwwwwwwwwwwwwwwwwwwwwwwwwwwwwwwwwwwwww wwwwwwwwwwwwwwwwwwwwwwwwwwwwwwwwwwwwwwwwwwwwwwwwwwwwwwwwwwwwwwwwwwwwwwwwwwwwww wwwwwwwwwwwwwwwwwwwwwwwwwwwwwwwwwwwwwwwwwwwwwwwwwwwwwwwwwwwwwwwwwwwwwwwwwwwwww wwwwwwwwwwwwwwwwwwwwwwwwwwwwwwwwwwwwwwwwwwwwwwwwwwwwwwwwwwwwwwwwwwwwwwwwwwwwww wwwwwwwwwwwwwwwwwwwwwwwwwwwwwwwwwwwwwwwwwwwwwwwwwwwwwwwwwwwwwwwwwwwwwwwwwwwwww wwwwwwwwwwwwwwwwwwwwwwwwwwwwwwwwwwwwwwwwwwwwwwwwwwwwwwwwwwwwwwwwwwwwwwwwwwwwww wwwwwwwwwwwwwwwwwwwwwwwwwwwwwwwwwwwwwwwwwwwwwwwwwwwwwwwwwwwwwwwwwwwwwwwwwwwwww wwwwwwwwwwwwwwwwwwwwwwwwwwwwwwwwwwwwwwwwwwwwwwwwwwwwwwwwwwwwwwwwwwwwwwwwwwwwww wwwwwwwwwwwwwwwwwwwwwwwwwwwwwwwwwwwwwwwwwwwwwwwwwwwwwwwwwwwwwwwwwwwwwwwwwwwwww wwwwwwwwwwwwwwwwwwwwwwwwwwwwwwwwwwwwwwwwwwwwwwwwwwwwwwwwwwwwwwwwwwwwwwwwwwwwww wwwwwwwwwwwwwwwwwwwwwwwwwwwwwwwwwwwwwwwwwwwwwwwwwwwwwwwwwwwwwwwwwwwwwwwwwwwwww wwwwwwwwwwwwwwwwwwwwwwwwwwwwwwwwwwwwwwwwwwwwwwwwwwwwwwwwwwwwwwwwwwwwwwwwwwwwww wwwwwwwwwwwwwwwwwwwwwwwwwwwwwwwwwwwwwwwwwwwwwwwwwwwwwwwwwwwwwwwwwwwwwwwwwwwwww wwwwwwwwwwwwwwwwwwwwwwwwwwwwwwwwwwwwwwwwwwwwwwwwwwwwwwwwwwwwwwwwwwwwwwwwwwwwww wwwwwwwwwwwwwwwwwwwwwwwwwwwwwwwwwwwwwwwwwwwwwwwwwwwwwwwwwwwwwwwwwwwwwwwwwwwwww wwwwwwwwwwwwwwwwwwwwwwwwwwwwwwwwwwwwwwwwwwwwwwwwwwwwwwwwwwwwwwwwwwwwwwwwwwsailajawww wwwwwwwwwwwwwwwwwwwwwwwwwwwwwwwwwwwwwwwwwwwwwwwwwwwwwwwwwwwwwwwwwwwwwwwwwwwwww wwwwwwwwwwwwwwwwwwwwwwwwwwwwwwwwwwwwwwwwwwwsamwwwwwwwwwwwwwwwwwwwwwwwwwwwww wwwwwwwwwwwwwwwwwwwwwwwwwwwwwangwwwwwwwwwwwwwwwwsailajawwwwwwwwwww wwwwwwwwwwwwwsailajawwwwwwmelissawwwwshimonwwwwwwwwwwwwwwwwwwwwwwwwwwwwwwww wwwwwwwwwwwwwwwwwwwwwwwwwwwwwwwwwwwwwwwwwwwwwwwwwwwwwwwwwwwwwwwwwwwwwwwwwwwwww wwwwwwwwwwwwwwwwwwwwwwwwwwwwwwwwwwwwwwwwwwwwwwwwwwwwwwwwwwwwwwwwwwwwwwwwwwwwww wwwwwwwwwwwwwwwwwwwwwwwwwwwwwwwwwwwwwwwwwwwwwwwwwwwwwwwwwwwwwwwwwwwwwwwwwwwwww wwwwwwwwwwwwwwwwwwwwwwwwwwwwwwwwwwwwwwwwwwwwwwwwwwwwwwwwwwwwwwwwwwwwwwwwwwwwww wwwwwwwwwwwwwwwwwwwwwwwwwwwwwwwwwwwwwwwwwwwwwwwwwwwwwwwwwwwwwwwwwwwwwwwwwwwwww wwwwwwwwwwwwwwwwwwwwwwwwwwwwwwwwwwwwwwwwwwwwwwwwwwwwwwwwwwwwwwwwwwwwwwwwwwwwww wwwwwwwwwwwwwwwwwwwwwwwwwwwwwwwwwwwwwwwwwwwwwwwwwwwwwwwwwwwwwwwwwwwwwwwwwwwwww wwwwwwwwwwwwwwwwwwwwwwwwwwwwwwwwwwwwwwwwwwwwwwwwwwwwwwwwwwwwwwwwwwwwwwwwwwwwww wwwwwwwwwwwwwwwwwwwwwwwwwwwwwwwwwwwwwwwwwwwwwwwwwwwwwwwwwwwwwwwwwwwwwwwwwwwwww wwwwwwwwwwwwwwwwwwwwwwwwwwwwwwwwwwwwwwwwwwwwwwwwwwwwwwwwwwwwwwwwwwwwwwwwwwwwww wwwwwwwwwwwwwwwwwwwwwwwwwwwwwwwwwwwwwwwwwwwwwwwwwwwwwwwwwwwwwwwwwwwwwwwwwwwwww wwwwwwwwwwwwwwwwwwwwwwwwwwwwwwwwwwwwwwwwwwwwwwwwwwwwwwwwwwwwwwwwwwwwwwwwwwwwww wwwwwwwwwwwwwwwwwwwwwwwwwwwwwwwwwwwwwwwwwwwwwwwwwwwwwwwwwwwwwwwwwwwwwwwwwwwwww wwwwwwwwwwwwwwwwwwwwwwwwwwwwwwwwwwwwwwwwwwwwwwwwwwwwwwwwwwwwwwwwwwwwwwwwwwwwww wwwwwwwwwwwwwwwwwwwwwwwwwwwwwwwwwwwwwwwwwwwwwwwwwwwwwwwwwwwwwwwwwwwwwwwwwwwwww wwwwwwwwwwwwwwwwwwwwwwwwwwwwwwwwwwwwwwwwwwwwwwwwwwwwwwwwwwwwwwwwwwwwwwwwwwwwww wwwwwwwwwwwwwwwwwwwwwwwwwwwwwwwwwwwwwwwwwwwwwwwwwwwwwwwwwwwwwwwwwwwwwwwwwwwwww wwwwwwwwwwwwwwwwwwwwwwwwwwwwwwwwwwwwwwwwwwwwwwwwwwwwwwwwwwwwwwwwwwwwwwwwwwwwww wwwwwwwwwwwwwwwwwwwwwwwwwwwwwwwwwwwwwwwwwwwwwwwwwwwwwwwwwwwwwwwwwwwwwwwwwwwwww wwwwwwwwwwwwwwwwwwwwwwwwwwwwwwwwwwwwwwwwwwwwwwwwwwwwwwwwwwwwwwwwwwwwwwwwwwwwww wwwwwwwwwwwwwwwwwwwwwwwwwwwwwwwwwwwwwwwwwwwwwwwwwwwwwwwwwwwwwwwwwwwwwwwwwwwwww wwwwwwwwwwwwwwwwwwwwwwwwwwwwwwwwwwwwwwwwwwwwwwwwwwwwwwwwwwwwwwwwwwwwwwwwwwwwww wwwwwwwwwwwwwwwwwwwwwwwwwwwwwwwwwwwwwwwwwwwwwwwwwwwwwwwwwwwwwwwwwwwwwwwwwwwwww wwwwwwwwwwwwwwwwwwwwwwwwwwwwwwwwwwwwwwwwwwwwwwwwwwwwwwwwwwwwwwwwwwwwwwwwwwwwww wwwwwwwwwwwwwwwwwwwwwwwwwwwwwwwwwwwwwwwwwwwwwwwwwwwwwwwwwwwwwwwwwwwwwwwwwwwwww wwwwwwwwwwwwwwwwwwwwwwwwwwwwwwwwwwwwwwwwwwwwwwwwwwwwwwwwwwwwwwwwwwwwwwwwwwwwww wwwwwwwwwwwwwwwwwwwwwwwwwwwwwwwwwwwwwwwwwwwwwwwwwwwwwwwwwwwwwwwwwwwwwwwwwwwwww wwwwwwwwwwwwwwwwwwwwwwwwwwwwwwwwwwwwwwwwwwwwwwwwwwwwwwwwwwwwwwwwwwwwwwwwwwwwww wwwwwwwwwwwwwwwwwwwwwwwwwwwwwwwwwwwwwwwwwwwwwwwwwwwwwwwwwwwwwwwwwwwwwwwwwwwwww wwwwwwwwwwwwwwwwwwwwwwwwwwwwwwwwwwwwwwwwwwwwwwwwwwwwwwwwwwwwwwwwwwwwwwwwwwwwww wwwwwwwwwwwwwwwwwwwwwwwwwwwwwwwwwwwwwwwwwwwwwwwwwwwwwwwwwwwwwwwwwwwwwwwwwwwwww wwwwwwwwwwwwwwwwwwwwwwwwwwwwwwwwwwwwwwwwwwwwwwwwwwwwwwwwwwwwwwwwwwwwwwwwwwwwww wwwwwwwwwwwwwwwwwwwwwwwwwwwwwwwwwwwwwwwwwwwwwwwwwwwwwwwwwwwwwwwwwwwwwwwwwwwwww wwwwwwwwwwwwwwwwwwwwwwwwwwwwwwwwwwwwwwwwwwwwwwwwwwwwwwwwwwwwwwwwwwwwwwwwwwwwww wwwwwwwwwwwwwwwwwwwwwwwwwwwwwwwwwwwwwwwwwwwwwwwwwwwwwwwwwwwwwwwwwwwwwwwwwwwwww wwwwwwwwwwwwwwwwwwwwwwwwwwwwwwwwwwwwwwwwwwwwwwwwwwwwwwwwwwwwwwwwwwwwwwwwwwwwww wwwwwwwwwwwwwwwwwwwwwwwwwwwwwwwwwwwwwwwwwwwwwwwwwwwwwwwwwwwwwwwwwwwwwwwwwwwwww wwwwwwwwwwwwwwwwwwwwwwwwwwwwwwwwwwwwwwwwwwwwwwwwwwwwwwwwwwwwwwwwwwwwwwwwwwwwww wwwwwwwwwwwwwwwwwwwwwwwwwwwwwwwwwwwwwwwwwwwwwwwwwwwwwwwwwwwwwwwwwwwwwwwwwwwwww wwwwwwwwwwwwwwwwwwwwwwwwwwwwwwwwwwwwwwwwwwwwwwwwwwwwwwwwwwwwwwwwwwwwwwwwwwwwww wwwwwwwwwwwwwwwwwwwwwwwwwwwwwwwwwwwwwwwwwwwwwwwwwwwwwwwwwwwwwwwwwwwwwwwwwwwwww wwwwwwwwwwwwwwwwwwwwwwwwwwwwwwwwwwwwwwwwwwwwwwwwwwwwwwwwwwwwwwwwwwwwwwwwwwwwww wwwwwwwwwwwwwwwwwwwwwwwwwwwwwwwwwwwwwwwwwwwwwwwwwwwwwwwwwwwwwwwwwwwwwwwwwwwwww wwwwwwwwwwwwwwwwwwwwwwwwwwwwwwwwwwwwwwwwwwwwwwwwwwwwwwwwwwwwwwwwwwwwwwwwwwwwww wwwwwwwwwwwwwwwwwwwwwwwwwwwwwwwwwwwwwwwwwwwwwwwwwwwwwwwwwwwwwwwwwwwwwwwwwwwwww wwwwwwwwwwwwwwwwwwwwwwwwwwwwwwwwwwwwwwwwwwwwwwwwwwwwwwwwwwwwwwwwwwwwwwwwwwwwww wwwwwwwwwwwwwwwwwwwwwwwwwwwwwwwwwwwwwwwwwwwwwwwwwwwwwwwwwwwwwwwwwwwwwwwwwwwwww wwwwwwwwwwwwwwwwwwwwwwwwwwwwwwwwwwwwwwwwwwwwwwwwwwwwwwwwwwwwwwwwwwwwwwwwwwwwww wwwwwwwwwwwwwwwwwwwwwwwwwwwwwwwwwwwwwwwwwwwwwwwwwwwwwwwwwwwwwwwwwwwwwwwwwwwwww wwwwwwwwwwwwwwwwwwwwwwwwwwwwwwwwwwwwwwwwwwwwwwwwwwwwwwwwwwwwwwwwwwwwwwwwwwwwww wwwwwwwwwwwwwwwwwwwwwwwwwwwwwwwwwwwwwwwwwwwwwwwwwwwwwwwwwwwwwwwwwwwwwwwwwwwwww wwwwwwwwwwwwwwwwwwwwwwwwwwwwwwwwwwwwwwwwwwwwwwwwwwwwwwwwwwwwwwwwwwwwwwwwwwwwww wwwwwwwwwwwwwwwwwwwwwwwwwwwwwwwwwwwwwwwwwwwwwwwwwwwwwwwwwwwwwwwwwwwwwwwwwwwwww wwwwwwwwwwwwwwwwwwwwwwwwwwwwwwwwwwwwwwwwwwwwwwwwwwwwwwwwwwwwwwwwwwwwwwwwwwwwww wwwwwwwwwwwwwwwwwwwwwwwwwwwwwwwwwwwwwwwwwwwwwwwwwwwwwwwwwwwwwwwwwwwwwwwwwwwwww wwwwwwwwwwwwwwwwwwwwwwwwwwwwwwwwwwwwwwwwwwwwwwwwwwwwwwwwwwwwwwwwwwwwwwwwwwwwww wwwwwwwwwwwwwwwwwwwwwwwwwwwwwwwwwwwwwwwwwwwwwwwwwwwwwwwwwwwwwwwwwwwwwwwwwwwwww wwwwwwwwwwwwwwwwwwwwwwwwwwwwwwwwwwwwwwwwwwwwwwwwwwwwwwwwwwwwwwwwwwwwwwwwwwwwww wwwwwwwwwwwwwwwwwwwwwwwwwwwwwwwwwwwwwwwwwwwwwwwwwwwwwwwwwwwwwwwwwwwwwwwwwwwwww wwwwwwwwwwwwwwwwwwwwwwwwwwwwwwwwwwwwwwwwwwwwwwwwwwwwwwwwwwwwwwwwwwwwwwwwwwwwww wwwwwwwwwwwwwwwwwwwwwwwwwwwwwwwwwwwwwwwwwwwwwwwwwwwwwwwwwwwwwwwwwwwwwwwwwwwwww wwwwwwwwwwwwwwwwwwwwwwwwwwwwwwwwwwwwwwwwwwwwwwwwwwwwwwwwwwwwwwwwwwwwwwwwwwwwww wwwwwwwwwwwwwwwwwwwwwwwwwwwwwwwwwwwwwwwwwwwwwwwwwwwwwwwwwwwwwwwwwwwwwwwwwwwwww wwwwwwwwwwwwwwwwwwwwwwwwwwwwwwwwwwwwwwwwwwwwwwwwwwwwwwwwwwwwwwwwwwwwwwwwwwwwww wwwwwwwwwwwwwwwwwwwwwwwwwwwwwwwwwwwwwwwwwwwwwwwwwwwwwwwwwwwwwwwwwwwwwwwwwwwwww wwwwwwwwwwwwwwwwwwwwwwwwwwwwwwwwwwwwwwwwwwwwwwwwwwwwwwwwwwwwwwwwwwwwwwwwwwwwww wwwwwwwwwwwwwwwwwwwwwwwwwwwwwwwwwwwwwwwwwwwwwwwwwwwwwwwwwwwwwwwwwwwwwwwwwwwwww wwwwwwwwwwwwwwwwwwwwwwwwwwwwwwwwwwwwwwwwwwwwwwwwwwwwwwwwwwwwwwwwwwwwwwwwwwwwww wwwwwwwwwwwwwwwwwwwwwwwwwwwwwwwwwwwwwwwwwwwwwwwwwwwwwwwwwwwwwwwwwwwwwwwwwwwwww wwwwwwwwwwwwwwwwwwwwwwwwwwwwwwwwwwwwwwwwwwwwwwwwwwwwwwwwwwwwwwwwwwwwwwwwwwwwww wwwwwwwwwwwwwwwwwwwwwwwwwwwwwwwwwwwwwwwwwwwwwwwwwwwwwwwwwwwwwwwwwwwwwwwwwwwwww wwwwwwwwwwwwwwwwwwwwwwwwwwwwwwwwwwwwwwwwwwwwwwwwwwwwwwwwwwwwwwwwwwwwwwwwwwwwww wwwwwwwwwwwwwwwwwwwwwwwwwwwwwwwwwwwwwwwwwwwwwwwwwwwwwwwwwwwwwwwwwwwwwwwwwwwwww wwwwwwwwwwwwwwwwwwwwwwwwwwwwwwwwwwwwwwwwwwwwwwwwwwwwwwwwwwwwwwwwwwwwwwwwwwwwww wwwwwwwwwwwwwwwwwwwwwwwwwwwwwwwwwwwwwwwwwwwwwwwwwwwwwwwwwwwwwwwwwwwwwwwwwwwwww wwwwwwwwwwwwwwwwwwwwwwwwwwwwwwwwwwwwwwwwwwwwwwwwwwwwwwwwwwwwwwwwwwwwwwwwwwwwww wwwwwwwwwwwwwwwwwwwwwwwwwwwwwwwwwwwwwwwwwwwwwwwwwwwwwwwwwwwwwwwwwwwwwwwwwwwwww wwwwwwwwwwwwwwwwwwwwwwwwwwwwwwwwwwwwwwwwwwwwwwwwwwwwwwwwwwwwwwwwwwwwwwwwwwwwww wwwwwwwwwwwwwwwwwwwwwwwwwwwwwwwwwwwwwwwwwwwwwwwwwwwwwwwwwwwwwwwwwwwwwwwwwwwwww wwwwwwwwwwwwwwwwwwwwwwwwwwwwwwwwwwwwwwwwwwwwwwwwwwwwwwwwwwwwwwwwwwwwwwwwwwwwww wwwwwwwwwwwwwwwwwwwwwwwwwwwwwwwwwwwwwwwwwwwwwwwwwwwwwwwwwwwwwwwwwwwwwwwwwwwwww wwwwwwwwwwwwwwwwwwwwwwwwwwwwwwwwwwwwwwwwwwwwwwwwwwwwwwwwwwwwwwwwwwwwwwwwwwwwww wwwwwwwwwwwwwwwwwwwwwwwwwwwwwwwwwwwwwwwwwwwwwwwwwwwwwwwwwwwwwwwwwwwwwwwwwwwwww wwwwwwwwwwwwwwwwwwwwwwwwwwwwwwwwwwwwwwwwwwwwwwwwwwwwwwwwwwwwwwwwwwwwwwwwwwwwww wwwwwwwwwwwwwwwwwwwwwwwwwwwwwwwwwwwwwwwwwwwwwwwwwwwwwwwwwwwwwwwwwwwwwwwwwwwwww wwwwwwwwwwwwwwwwwwwwwwwwwwwwwwwwwwwwwwwwwwwwwwwwwwwwwwwwwwwwwwwwwwwwwwwwwwwwww wwwwwwwwwwwwwwwwwwwwwwwwwwwwwwwwwwwwwwwwwwwwwwwwwwwwwwwwwwwwwwwwwwwwwwwwwwwwww wwwwwwwwwwwwwwwwwwwwwwwwwwwwwwwwwwwwwwwwwwwwwwwwwwwwwwwwwwwwwwwwwwwwwwwwwwwwww wwwwwwwwwwwwwwwwwwwwwwwwwwwwwwwwwwwwwwwwwwwwwwwwwwwwwwwwwwwwwwwwwwwwwwwwwwwwww wwwwwwwwwwwwwwwwwwwwwwwwwwwwwwwwwwwwwwwwwwwwwwwwwwwwwwwwwwwwwwwwwwwwwwwwwwwwww wwwwwwwwwwwwwwwwwwwwwwwwwwwwwwwwwwwwwwwwwwwwwwwwwwwwwwwwwwwwwwwwwwwwwwwwwwwwww wwwwwwwwwwwwwwwwwwwwwwwwwwwwwwwwwwwwwwwwwwwwwwwwwwwwwwwwwwwwwwwwwwwwwwwwwwwwww wwwwwwwwwwwwwwwwwwwwwwwwwwwwwwwwwwwwwwwwwwwwwwwwwwwwwwwwwwwwwwwwwwwwwwwwwwwwww wwwwwwwwwwwwwwwwwwwwwwwwwwwwwwwwwwwwwwwwwwwwwwwwwwwwwwwwwwwwwwwwwwwwwwwwwwwwww wwwwwwwwwwwwwwwwwwwwwwwwwwwwwwwwwwwwwwwwwwwwwwwwwwwwwwwwwwwwwwwwwwwwwwwwwwwwww wwwwwwwwwwwwwwwwwwwwwwwwwwwwwwwwwwwwwwwwwwwwwwwwwwwwwwwwwwwwwwwwwwwwwwwwwwwwww wwwwwwwwwwwwwwwwwwwwwwwwwwwwwwwwwwwwwwwwwwwwwwwwwwwwwwwwwwwwwwwwwwwwwwwwwwwwww wwwwwwwwwwwwwwwwwwwwwwwwwwwwwwwwwwwwwwwwwwwwwwwwwwwwwwwwwwwwwwwwwwwwwwwwwwwwww wwwwwwwwwwwwwwwwwwwwwwwwwwwwwwwwwwwwwwwwwwwwwwwwwwwwwwwwwwwwwwwwwwwwwwwwwwwwww wwwwwwwwwwwwwwwwwwwwwwwwwwwwwwwwwwwwwwwwwwwwwwwwwwwwwwwwwwwwwwwwwwwwwwwwwwwwww wwwwwwwwwwwwwwwwwwwwwwwwwwwwwwwwwwwwwwwwwwwwwwwwwwwwwwwwwwwwwwwwwwwwwwwwwwwwww wwwwwwwwwwwwwwwwwwwwwwwwwwwwwwwwwwwwwwwwwwwwwwwwwwwwwwwwwwwwwwwwwwwwwwwwwwwwww wwwwwwwwwwwwwwwwwwwwwwwwwwwwwwwwwwwwwwwwwwwwwwwwwwwwwwwwwwwwwwwwwwwwwwwwwwwwww wwwwwwwwwwwwwwwwwwwwwwwwwwwwwwwwwwwwwwwwwwwwwwwwwwwwwwwwwwwwwwwwwwwwwwwwwwwwww wwwwwwwwwwwwwwwwwwwwwwwwwwwwwwwwwwwwwwwwwwwwwwwwwwwwwwwwwwwwwwwwwwwwwwwwwwwwww wwwwwwwwwwwwwwwwwwwwwwwwwwwwwwwwwwwwwwwwwwwwwwwwwwwwwwwwwwwwwwwwwwwwwwwwwwwwww wwwwwwwwwwwwwwwwwwwwwwwwwwwwwwwwwwwwwwwwwwwwwwwwwwwwwwwwwwwwwwwwwwwwwwwwwwwwww wwwwwwwwwwwwwwwwwwwwwwwwwwwwwwwwwwwwwwwwwwwwwwwwwwwwwwwwwwwwwwwwwwwwwwwwwwwwww wwwwwwwwwwwwwwwwwwwwwwwwwwwwwwwwwwwwwwwwwwwwwwwwwwwwwwwwwwwwwwwwwwwwwwwwwwwwww wwwwwwwwwwwwwwwwwwwwwwwwwwwwwwwwwwwwwwwwwwwwwwwwwwwwwwwwwwwwwwwwwwwwwwwwwwwwww wwwwwwwwwwwwwwwwwwwwwwwwwwwwwwwwwwwwwwwwwwwwwwwwwwwwwwwwwwwwwwwwwwwwwwwwwwwwww wwwwwwwwwwwwwwwwwwwwwwwwwwwwwwwwwwwwwwwwwwwwwwwwwwwwwwwwwwwwwwwwwwwwwwwwwwwwww wwwwwwwwwwwwwwwwwwwwwwwwwwwwwwwwwwwwwwwwwwwwwwwwwwwwwwwwwwwwwwwwwwwwwwwwwwwwww wwwwwwwwwwwwwwwwwwwwwwwwwwwwwwwwwwwwwwwwwwwwwwwwwwwwwwwwwwwwwwwwwwwwwwwwwwwwww wwwwwwwwwwwwwwwwwwwwwwwwwwwwwwwwwwwwwwwwwwwwwwwwwwwwwwwwwwwwwwwwwwwwwwwwww *As of 10/19/2016, the patient remains clinically stable, without signs of cholangitis. He is asymptomatic and resting comfortably. He is now NPO for ERCP. 10/19/2016: PT 16.8, INR 1.61 (Coumadin on hold), PTT > 120 (*IV heparin now on hold preop, per medical team), WBC 6.1, H/H 16.3/48.5, PLT 186, *K 3.1, albumin 3.3, globulin 2.8, TBil 0.8, DBil 0.2, alk phos 280, AST 32, ALT 158 *SUGGEST: *Maintain NPO after 11:59 p.m., on , 10/18/2016, for ERCP later today, on 10/19/2016. *IV heparin on hold preop for now, as of 6 AM on Saturday. Serial LFTs & abdomnal exams.*Coumadin on hold for now (aim for INR < 1.50). *Follow up with hematology. *Watch for signs or symptoms of cholangitis ( i.e.- hypotension, confusion, temperature spikes, etc.). *Plans are for ERCP on 10/19/2016, which will be performed by Dr. Aman Alvares (d/w him), as I do not perform therapeutic biliary endoscopy. *Please call GI sooner if the patient decompensates. *In view of past history of Hep C & elevated LFTs (most probably related to CBD stone), as there is no definite documentation of the patient having achieved SVR after presumed treatment with PEG IFN & Ribaviron, * *advise checking quantitative HCV RNA & Hep Bs Ag (THIRD REQUEST). *Await 03/2017: AMA & 10/18/2016: AMA. Will defer to cardiology regarding eventual resumption of Crestor. (By dates, the patient is due for follow up surveillance colonoscopy in 11/2020). Continue Bentyl. *Replete K+ preop. Follow-up with numerous physicians, as listed. The above findings and recommendations were previously discussed with Dr. Allison & with the medical house staff in great detail, & again today with the patient's RN. *Dr. Aman Alvares may have to confer with Dr. Kaba, of hematology, if papillotomy is to be performed, regarding eventual resumption of A/C therapy. *Further recommendations related to post ERCP care as per Dr. Aman Alvares. (*Dr. Vela is on for GI this weekend, but further inpatient GI followup will be purely related to post-ERCP recommendations & eventual resumption of A/C therapy, as s/p PE & LLE DVT a few months ago, without IVC filter). Problem List: 1. Choledocholithiasis 2. Abdominal pain 3. History of hepatitis C 4. Elevated LFTs 5. S/P cholecystectomy 6. Traumatic perinephric hematoma of left kidney 7. Bilateral pulmonary embolism 8. CAD (coronary artery disease) Subjective Subjective: *As of 10/19/2016, the patient remains clinically stable, without signs of cholangitis. He is asymptomatic and resting comfortably. He is now NPO for ERCP. 10/19/2016: PT 16.8, INR 1.61 (Coumadin on hold), PTT > 120 (*IV heparin now on hold preop, per medical team), WBC 6.1, H/H 16.3/48.5, PLT 186, *K 3.1, albumin 3.3, globulin 2.8, TBil 0.8, DBil 0.2, alk phos 280, AST 32, ALT 158 Review of Systems: Full 14 point ROS ottherwise noncontributory, and as above. Review of Systems Constitutional: Reports: unexplained weight loss, attributed to recent hospitalizations ("30 lbs " since 07/2016 hematoma). Denies: chills, diaphoresis, fever, malaise, weakness. EENTM: Denies: blurred vision, double vision, visual changes, eye pain, eye drainage, eye tearing, icterus, ear discharge, ear pain, ear redness, hearing changes, nasal congestion, epistaxis, nasal pain, throat pain, throat swelling, mouth pain, tooth pain. Cardiovascular: Reports: chest pain (non-exertional)- *resolved. Denies: edema, orthopena, palpitations, peripheral edema, syncope. Respiratory: Denies: cough, hemoptysis, orthopnea, short of breath, sputum production, stridor, wheezing. GI: Reports: abdominal pain- *resolved. Denies: bloating, constipation, diarrhea, distention, bowel incontinence, melena , nausea, bloody stool, changes in stool, vomiting, steatorrhea. Genitourinary: Reports: nocturia (BPH). Denies: discharge, dysuria, frequency, hematuria, hesitation, pain, urgency. Musculoskeletal: Reports: joint pain (DJD/gout). Denies: back pain, gout, joint swelling, muscle pain, muscle stiffness, neck pain. Skin: Denies: cysts, change in skin color, change in hair/nails, dryness, erythema, jaundice, lesions, lymphangitis, lumps, moles, rash. Neurological/Psychological: Denies: anxiety, ataxia, cognitive dysfunction, confusion, depressed, dementia, emotional problems, headache, numbness, paresthesia, pre-existing deficit, petit mal seizures, tingling, tremors, tonic-clonic seizures, unable to move lower ext , unable to move upper ext, weakness. Hematologic/Endocrine: Denies: bruising, bleeding, polyuria, polydipsia. Immunologic/Allergic: Denies: splenectomy, HIV/AIDS, lymphadenopathy. All Other Systems: Reviewed and Negative Objective Vital Signs and I&Os Vital Signs Date Time Temp Pulse Resp B/P B/P Pulse O2 O2 Flow FiO2 Mean Ox Delivery Rate 10/19 0742 98.2 74 18 140/84 93 Room Air 10/18 2234 98.4 65 18 129/73 92 Room Air 10/18 2047 66 130/73 10/18 1415 97.5 63 20 120/80 94 Room Air Intake & Output 10/19 1600 10/19 0400 10/18 1600 10/18 0400 10/17 0400 Intake Total 757 650 7966 490 828 3539 Output Total 500 900 200 750 300 200 Balance -265 -345 950 -150 440 800 Intake, IV 175 75 150 901 457 1253 Intake, Oral 60 480 1000 240 Number 1 1 Bowel Movements Output, Urine 500 900 200 750 300 200 Patient 200 lb Weight Physical Exam: Well-developed, well-nourished male, in no apparent distress. Non-toxic appearing. Sclera anicteric. Conjunctiva pink. Oropharynx clear. No oral thrush. No aphthous ulcers. There is no adenopathy, thyromegaly, or JVD. No peripheral stigmata of inflammatory bowel disease or chronic liver disease on exam. No spiders on the anterior chest wall. No gynecomastia. No CVA tenderness. T-L scoliosis. Lungs: clear to A&P, with slight decreased BS at the bases B/L. No wheezing, rales, or rhonchi. No CWT. Heart exam: currently regular rate rhythm, S1 and S2, with III/ systolic murmur. Post CABG scar. Abdominal exam: normal bowel sounds, soft belly, currently nontender, without guarding or rebound. Small reducible LIH, otherwise no mass. Vertical RUQ scar, post CCKY. No organomegaly. No fluid shift. No pulsatile mass. Digital rectal exam: deferred by patient ("recently OB-negative at urology"). Extremities: without C, C, or E. No palpable cords. Mild DJD. Distal pulses 2+ bilaterally. DTRs 2+ bilaterally. Alert and oriented x 3. Right handed. Nonfocal, although a detailed exam for peripheral neuropathy was deferred. No tremor. No asterixis. Current Medications: Current Medications Sig/Geri Start time Last Medication Dose Route Stop Time Status Admin Allopurinol 300 MG DAILY 10/17 1000 AC 10/18 PO 0853 Amlodipine Besylate 10 MG DAILY 10/17 1000 AC 10/18 PO 0853 Artificial Tears 2 GTT 4 TIMES/DAY 10/16 2244 AC 10/18 OPH 2047 Chlorthalidone 25 MG QAM 10/17 1000 AC 10/18 PO 0854 Dicyclomine HCl 20 MG 4 TIMES/DAY PRN 10/175 AC PO Docusate Sodium 100 MG DAILY 10/17 1000 AC 10/18 PO 0854 Ezetimibe 10 MG DAILY 10/17 1000 AC 10/18 PO 0853 Ferrous Sulfate 325 MG BID 10/17 1000 AC 10/18 PO 2048 Fluticasone 2 SPRAY DAILY 10/17 1000 AC 10/18 Propionate JEF 0854 Gemfibrozil 600 MG BID 10/16 223 DC 10/18 PO 0854 Heparin Sodium 6,803 UNIT BOLUS ONE 10/18 2199 DC 10/18 (Porcine) IV 10/18 2200 225 Heparin Sodium 25,000 UNIT Q24H 10/17 914 DC 10/18 (Porcine) IV 10/19 599 225 Sodium Chloride 500 ML Levothyroxine Sodium 0.137 MG 10/17 07 AC 10/19 PO 0557 Magnesium Hydroxide 5 ML Q12P PRN 10/16 224 AC PO Memantine 10 MG BID 10/16 2230 AC 10/18 PO 204 Metoprolol Tartrate 75 MG BID 10/17 1000 AC 10/18 PO 2048 Morphine Sulfate 2 MG Q6-PRN PRN 10/16 2229 AC IV Nitroglycerin 0.4 MG DAILY 10/17 1000 AC 10/18 TOP 0854 Omeprazole 40 MG DAILY AC 10/17 07 AC 10/19 PO 0556 Oxycodone HCl 5 MG .STK-MED ONE 10/18 1953 DC PO 10/18 1954 Oxycodone HCl 5 MG Q6P PRN 10/16 223 AC 10/18 PO 2003 Prednisolone 1 GTT DAILY 10/17 1000 AC 10/18 OPH 0854 Tamsulosin HCl 0.4 MG QPM 10/17 2199 AC 10/18 PO 204 Tramadol HCl 50 MG Q8P PRN 10/17 0230 AC 10/17 PO 2338 Results Pertinent Lab Results: Laboratory Tests 10/19 10/19 10/18 0715 0 2020 Chemistry Sodium (137 - 145 mmol/L) 138 Potassium (3.5 - 5.1 mmol/L) 3.1 L Chloride (98 - 107 mmol/L) 99 Carbon Dioxide (22 - 30 mmol/L) 27 Anion Gap (5 - 16) 11 BUN (9 - 20 mg/dL) 12 Creatinine (0.7 - 1.2 mg/dL) 0.8 Estimated GFR (>60 ml/min) > 60 BUN/Creatinine Ratio (7 - 25 %) 15.0 Total Bilirubin (0.2 - 1.3 mg/dL) 0.8 Direct Bilirubin (< 0.4 mg/dL) 0.2 AST (17 - 59 U/L) 32 ALT (21 - 72 U/L) 158 H Alkaline Phosphatase (< 127 U/L) 280 H Total Protein (6.3 - 8.2 g/dL) 6.1 L Albumin (3.5 - 5.0 g/dL) 3.3 L Coagulation PT (9.4 - 12.5 SEC) 16.8 H INR (0.90 - 1.17) 1.61 H APTT (25 - 37 SEC) > 120 *H 39 H Hematology CBC w Diff NO MAN DIFF REQ WBC (4.8 - 10.8 /CUMM) 6.1 RBC (4.70 - 6.10 /CUMM) 5.82 Hgb (14.0 - 18.0 G/DL) 16.3 Hct (42 - 52 %) 48.5 MCV (80.0 - 94.0 FL) 83.3 MCH (27.0 - 31.0 PG) 28.0 RDW (11.5 - 14.5 %) 15.4 H Plt Count (130 - 400 /CUMM) 186 MPV (7.4 - 10.4 FL) 7.5 Gran % (42.2 - 75.2 %) 51.8 Lymphocytes % (20.5 - 51.1 %) 36.8 Monocytes % (1.7 - 9.3 %) 9.3 Eosinophils % (0 - 5 %) 1.4 Basophils % (0.0 - 2.0 %) 0.7 Absolute Granulocytes (1.4 - 6.5 /CUMM) 3.2 Absolute Lymphocytes (1.2 - 3.4 /CUMM) 2.3 Absolute Monocytes (0.10 - 0.60 /CUMM) 0.6 Absolute Eosinophils (0.0 - 0.7 /CUMM) 0.1 Absolute Basophils (0.0 - 0.2 /CUMM) 0 PUBS MCHC (33.0 - 37.0 G/DL) 33.7 10/18 10/18 10/18 10/18 1350 0640 0600 0150 Chemistry Sodium (137 - 145 mmol/L) 137 Potassium (3.5 - 5.1 mmol/L) 3.7 Chloride (98 - 107 mmol/L) 99 Carbon Dioxide (22 - 30 mmol/L) 32 H Anion Gap (5 - 16) 6 BUN (9 - 20 mg/dL) 13 Creatinine (0.7 - 1.2 mg/dL) 0.9 Estimated GFR (>60 ml/min) > 60 BUN/Creatinine Ratio (7 - 25 %) 14.4 Total Bilirubin (0.2 - 1.3 mg/dL) 0.7 Direct Bilirubin (< 0.4 mg/dL) 0.2 AST (17 - 59 U/L) 47 ALT (21 - 72 U/L) 200 H Alkaline Phosphatase (< 127 U/L) 273 H Total Protein (6.3 - 8.2 g/dL) 5.7 L Albumin (3.5 - 5.0 g/dL) 3.0 L Coagulation PT (9.4 - 12.5 SEC) 18.3 H INR (0.90 - 1.17) 1.75 H APTT (25 - 37 SEC) 114 *H 74 H Hematology CBC w Diff NO MAN DIFF REQ WBC (4.8 - 10.8 /CUMM) 6.0 RBC (4.70 - 6.10 /CUMM) 5.52 Hgb (14.0 - 18.0 G/DL) 15.4 Hct (42 - 52 %) 46.1 MCV (80.0 - 94.0 FL) 83.5 MCH (27.0 - 31.0 PG) 27.8 RDW (11.5 - 14.5 %) 15.9 H Plt Count (130 - 400 /CUMM) 181 MPV (7.4 - 10.4 FL) 7.6 Gran % (42.2 - 75.2 %) 48.5 Lymphocytes % (20.5 - 51.1 %) 40.0 Monocytes % (1.7 - 9.3 %) 9.7 H Eosinophils % (0 - 5 %) 1.2 Basophils % (0.0 - 2.0 %) 0.6 Absolute Granulocytes (1.4 - 6.5 /CUMM) 2.9 Absolute Lymphocytes (1.2 - 3.4 /CUMM) 2.4 Absolute Monocytes (0.10 - 0.60 /CUMM) 0.6 Absolute Eosinophils (0.0 - 0.7 /CUMM) 0.1 Absolute Basophils (0.0 - 0.2 /CUMM) 0 PUBS MCHC (33.0 - 37.0 G/DL) 33.3 Immunology RAMANA Titer Pending Anti-Nuclear Antibody Pending Serology Hepatitis A IgM Ab (NONREACTIVE) NONREACTIVE Hep Bs Antibody (NONREACTIVE) NONREACTIVE Hep B Core IgM Ab Conf (NONREACTIVE) NONREACTIVE Hepatitis C Antibody (NONREACTIVE) REACTIVE H HIV 1&2 Ab Western Blot (NONREACTIVE) NONREACTIVE 10/17 10/17 1900 1823 Coagulation APTT (25 - 37 SEC) 106 *H Toxicology Urine Opiates Screen (>2000 NG/ML) 148.00 Methadone Screen (>300 NG/ML) < 40 Barbiturate Screen (>200 NG/ML) < 60 Ur Phencyclidine Scrn (>25 NG/ML) < 6.00 Amphetamines Screen (>1000 NG/ML) < 100 U Benzodiazepines Scrn (>200 NG/ML) < 85 Urine Cocaine Screen (>300 NG/ML) < 50 Urine Cannabis Screen (>50 NG/ML) < 5.00 Urines Urine Color (YEL,AMB,STR) YEL Urine Clarity (CLEAR) CLEAR Urine pH (5.0 - 8.0) 7.5 Ur Specific [place] (1.001 - 1.035) 1.010 Urine Protein (NEG,<30 MG/DL) NEG Urine Ketones (NEG) NEG Urine Nitrite (NEG) NEG Urine Bilirubin (NEG) NEG Urine Urobilinogen (0.1 - 1.0 EU/dl) 0.2 Ur Leukocyte Esterase (NEG) NEG Ur Microscopic EXAM NOT REQUIRED Urine Hemoglobin (NEG) NEG Urine Glucose (N MG/DL) NEG 10/17 10/17 10/16 0604 0600 1841 Chemistry Sodium (137 - 145 mmol/L) 139 Potassium (3.5 - 5.1 mmol/L) 4.0 Chloride (98 - 107 mmol/L) 100 Carbon Dioxide (22 - 30 mmol/L) 30 Anion Gap (5 - 16) 9 BUN (9 - 20 mg/dL) 14 Creatinine (0.7 - 1.2 mg/dL) 0.7 Estimated GFR (>60 ml/min) > 60 BUN/Creatinine Ratio (7 - 25 %) 20.0 Total Bilirubin (0.2 - 1.3 mg/dL) 0.8 Direct Bilirubin (< 0.4 mg/dL) 0.2 AST (17 - 59 U/L) 95 H ALT (21 - 72 U/L) 293 H Alkaline Phosphatase (< 127 U/L) 314 H Troponin I (<0.11 ng/ml) 0.03 Cancelled < 0.01 Total Protein (6.3 - 8.2 g/dL) 6.3 Albumin (3.5 - 5.0 g/dL) 3.4 L Coagulation PT (9.4 - 12.5 SEC) 25.4 H INR (0.90 - 1.17) 2.44 H Hematology CBC w Diff NO MAN DIFF REQ WBC (4.8 - 10.8 /CUMM) 7.1 RBC (4.70 - 6.10 /CUMM) 5.77 Hgb (14.0 - 18.0 G/DL) 15.9 Hct (42 - 52 %) 48.1 MCV (80.0 - 94.0 FL) 83.4 MCH (27.0 - 31.0 PG) 27.6 RDW (11.5 - 14.5 %) 15.8 H Plt Count (130 - 400 /CUMM) 202 MPV (7.4 - 10.4 FL) 7.4 Gran % (42.2 - 75.2 %) 54.6 Lymphocytes % (20.5 - 51.1 %) 34.2 Monocytes % (1.7 - 9.3 %) 9.8 H Eosinophils % (0 - 5 %) 0.9 Basophils % (0.0 - 2.0 %) 0.5 Absolute Granulocytes (1.4 - 6.5 /CUMM) 3.9 Absolute Lymphocytes (1.2 - 3.4 /CUMM) 2.4 Absolute Monocytes (0.10 - 0.60 /CUMM) 0.7 H Absolute Eosinophils (0.0 - 0.7 /CUMM) 0.1 Absolute Basophils (0.0 - 0.2 /CUMM) 0 PUBS MCHC (33.0 - 37.0 G/DL) 33.1 Immunology Anti-Mitochondrial Ab Pending 10/16 1457 Chemistry Sodium (137 - 145 mmol/L) 139 Potassium (3.5 - 5.1 mmol/L) 4.3 Chloride (98 - 107 mmol/L) 97 L Carbon Dioxide (22 - 30 mmol/L) 32 H Anion Gap (5 - 16) 10 BUN (9 - 20 mg/dL) 18 Creatinine (0.7 - 1.2 mg/dL) 0.7 Estimated GFR (>60 ml/min) > 60 BUN/Creatinine Ratio (7 - 25 %) 25.7 H Glucose (65 - 99 mg/dL) 101 H Calcium (8.4 - 10.2 mg/dL) 9.5 Iron (49 - 181 ug/dL) 99 TIBC (261 - 462 ug/dL) 322 Ferritin (17.9 - 464 ng/mL) 293.0 Total Bilirubin (0.2 - 1.3 mg/dL) 0.8 Direct Bilirubin (< 0.4 mg/dL) 0.3 AST (17 - 59 U/L) 174 H ALT (21 - 72 U/L) 408 H Alkaline Phosphatase (< 127 U/L) 347 H Troponin I (<0.11 ng/ml) 0.01 Total Protein (6.3 - 8.2 g/dL) 7.1 Albumin (3.5 - 5.0 g/dL) 4.0 Globulin (1.9 - 4.2 gm/dL) 3.1 Albumin/Globulin Ratio (1.1 - 2.2 %) 1.3 Amylase (30 - 110 U/L) 63 Lipase (23 - 300 U/L) 102 Coagulation PT (9.4 - 12.5 SEC) 35.6 H INR (0.90 - 1.17) 3.43 H Hematology CBC w Diff NO MAN DIFF REQ WBC (4.8 - 10.8 /CUMM) 8.9 RBC (4.70 - 6.10 /CUMM) 5.95 Hgb (14.0 - 18.0 G/DL) 16.5 Hct (42 - 52 %) 49.6 MCV (80.0 - 94.0 FL) 83.3 MCH (27.0 - 31.0 PG) 27.7 RDW (11.5 - 14.5 %) 15.8 H Plt Count (130 - 400 /CUMM) 225 MPV (7.4 - 10.4 FL) 7.2 L Gran % (42.2 - 75.2 %) 65.9 Lymphocytes % (20.5 - 51.1 %) 22.9 Monocytes % (1.7 - 9.3 %) 9.1 Eosinophils % (0 - 5 %) 1.4 Basophils % (0.0 - 2.0 %) 0.7 Absolute Granulocytes (1.4 - 6.5 /CUMM) 5.9 Absolute Lymphocytes (1.2 - 3.4 /CUMM) 2.0 Absolute Monocytes (0.10 - 0.60 /CUMM) 0.8 H Absolute Eosinophils (0.0 - 0.7 /CUMM) 0.1 Absolute Basophils (0.0 - 0.2 /CUMM) 0.1 PUBS MCHC (33.0 - 37.0 G/DL) 33.3 Imaging/Other Studies: 10/16/2016: EKG- NSR @ 72, normal axis, normal intervals, LVH, Q anteroseptal. 10/16/2016: CT ABD & PELVIS ANGIOGRAM; CTA CHEST-AORTIC DISSECTION- 1. No evidence of aortic dissection. No acute vascular abnormalities are identified in the chest, abdomen, and pelvis. 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 Previously seen subcentimeter pulmonary emboli are not identified on the current study and have largely resolved. 2. Expected evolutionary changes and decrease in size of the subcapsular hematoma at the left kidney. Large 6.9 cm right renal cyst, without change & multiple left renal cysts. 3. Inflamed, torsed epiploic appendage at the anterior margin of the descending colon (epiploic appendagitis). This may be symptomatic. Small fat containing LIH. 4. Choledocholithiasis (4 mm stone). No biliary ductal dilatation. Post CCKY. 5. Prostatomegaly. 6. DJD. T-L scoliosis.
--- NOTE | 2016-10-19 11:23 | PN- Hematology ---
Subjective Subjective: He is feeling well. He still have some abdominal pain. He has no fever or chills. Review of Systems: Constitutional: Denies: chills, fever. Cardiovascular: Denies: chest pain. Respiratory: Denies: short of breath. GI: Reports: abdominal pain. Genitourinary: Denies: dysuria. Musculoskeletal: Reports: back pain. Hematologic/Endocrine: Denies: bleeding. All Other Systems: Reviewed and Negative Objective Vital Signs and I&Os Vital Signs Date Time Temp Pulse Resp B/P B/P Pulse O2 O2 Flow FiO2 Mean Ox Delivery Rate 10/19 1101 74 140/84 10/19 0742 98.2 74 18 140/84 93 Room Air 10/18 2234 98.4 65 18 129/73 92 Room Air 10/18 2047 66 130/73 10/18 1415 97.5 63 20 120/80 94 Room Air Intake & Output 10/19 1600 10/19 0800 10/19 0000 10/18 1600 10/18 0800 10/18 0000 Intake Total 418 423 7480 600 Output Total 500 900 200 750 Balance -265 -345 1150 -200 -150 Intake, IV 175 75 150 600 Intake, Oral 60 480 1000 Number 1 Bowel Movements Output, Urine 500 900 200 750 Physical Exam: General Appearance: alert, awake, comfortable Respiratory: normal breath sounds, chest non-tender, quiet respiration Cardiovascular: regular rate/rhythm, systolic murmur Gastrointestinal: normal bowel sounds, tenderness (diffusely) Extremities: no edema Neurologic/Psych: awake, alert, oriented x 3 Current Medications: Current Medications Sig/Geri Start time Last Medication Dose Route Stop Time Status Admin Allopurinol 300 MG DAILY 10/17 1000 AC 10/19 PO 1102 Amlodipine Besylate 10 MG DAILY 10/17 1000 AC 10/19 PO 1101 Artificial Tears 2 GTT 4 TIMES/DAY 10/16 2244 AC 10/19 OPH 1100 Chlorthalidone 25 MG QAM 10/17 1000 AC 10/19 PO 1102 Dicyclomine HCl 20 MG 4 TIMES/DAY PRN 10/17 2215 AC PO Docusate Sodium 100 MG DAILY 10/17 1000 AC 10/19 PO 1102 Ezetimibe 10 MG DAILY 10/17 1000 AC 10/19 PO 1102 Ferrous Sulfate 325 MG BID 10/17 1000 AC 10/19 PO 1102 Fluticasone 2 SPRAY DAILY 10/17 1000 AC 10/19 Propionate JEF 1100 Gemfibrozil 600 MG BID 10/16 223 DC 10/18 PO 0854 Heparin Sodium 6,803 UNIT BOLUS ONE 10/18 2199 DC 10/18 (Porcine) IV 10/18 Heparin Sodium 25,000 UNIT Q24H 10/17 914 DC 10/18 (Porcine) IV 10/19 06 2258 Sodium Chloride 500 ML Levothyroxine Sodium 0.137 MG 0700 10/17 07 AC 10/19 PO 0557 Magnesium Hydroxide 5 ML Q12P PRN 10/16 2245 AC PO Memantine 10 MG BID 10/16 223 AC 10/19 PO 1102 Metoprolol Tartrate 75 MG BID 10/17 1000 AC 10/19 PO 1102 Morphine Sulfate 2 MG Q6-PRN PRN 10/16 223 AC IV Nitroglycerin 0.4 MG DAILY 10/17 1000 AC 10/19 TOP 1100 Omeprazole 40 MG DAILY AC 10/17 0700 AC 10/19 PO 0556 Oxycodone HCl 5 MG .STK-MED ONE 10/18 1953 DC PO 10/18 195 Oxycodone HCl 5 MG Q6P PRN 10/16 2230 AC 10/18 PO 2003 Potassium Chloride 10 MEQ ONCE ONE 10/19 1045 DC 10/19 IV 10/19 1046 1100 Potassium Chloride 40 MEQ ONCE ONE 10/19 1045 DC 10/19 PO 10/19 1046 1101 Prednisolone 1 GTT DAILY 10/17 1000 AC 10/19 OPH 1101 Tamsulosin HCl 0.4 MG QPM 10/17 220 AC 10/18 PO 2047 Tramadol HCl 50 MG Q8P PRN 10/17 0230 AC 10/17 PO 2338 Results Last 24 Hours of Lab Results: Laboratory Tests 10/19 10/19 10/19 0715 0600 0500 Chemistry Sodium (137 - 145 mmol/L) 138 Potassium (3.5 - 5.1 mmol/L) 3.1 L Chloride (98 - 107 mmol/L) 99 Carbon Dioxide (22 - 30 mmol/L) 27 Anion Gap (5 - 16) 11 BUN (9 - 20 mg/dL) 12 Creatinine (0.7 - 1.2 mg/dL) 0.8 Estimated GFR (>60 ml/min) > 60 BUN/Creatinine Ratio (7 - 25 %) 15.0 Total Bilirubin (0.2 - 1.3 mg/dL) 0.8 Direct Bilirubin (< 0.4 mg/dL) 0.2 AST (17 - 59 U/L) 32 ALT (21 - 72 U/L) 158 H Alkaline Phosphatase (< 127 U/L) 280 H Total Protein (6.3 - 8.2 g/dL) 6.1 L Albumin (3.5 - 5.0 g/dL) 3.3 L Coagulation PT (9.4 - 12.5 SEC) 16.8 H INR (0.90 - 1.17) 1.61 H APTT (25 - 37 SEC) > 120 *H Hematology CBC w Diff NO MAN DIFF REQ WBC (4.8 - 10.8 /CUMM) 6.1 RBC (4.70 - 6.10 /CUMM) 5.82 Hgb (14.0 - 18.0 G/DL) 16.3 Hct (42 - 52 %) 48.5 MCV (80.0 - 94.0 FL) 83.3 MCH (27.0 - 31.0 PG) 28.0 RDW (11.5 - 14.5 %) 15.4 H Plt Count (130 - 400 /CUMM) 186 MPV (7.4 - 10.4 FL) 7.5 Gran % (42.2 - 75.2 %) 51.8 Lymphocytes % (20.5 - 51.1 %) 36.8 Monocytes % (1.7 - 9.3 %) 9.3 Eosinophils % (0 - 5 %) 1.4 Basophils % (0.0 - 2.0 %) 0.7 Absolute Granulocytes (1.4 - 6.5 /CUMM) 3.2 Absolute Lymphocytes (1.2 - 3.4 /CUMM) 2.3 Absolute Monocytes (0.10 - 0.60 /CUMM) 0.6 Absolute Eosinophils (0.0 - 0.7 /CUMM) 0.1 Absolute Basophils (0.0 - 0.2 /CUMM) 0 PUBS MCHC (33.0 - 37.0 G/DL) 33.7 Serology Hep Bs Antigen (NONREACTIVE) NONREACTIVE HCV RNA (PCR) IUs/ml Pending HCV RNA PCR log IUs/ml Pending 10/18 1350 Coagulation APTT (25 - 37 SEC) 39 H 114 *H Assessment/Plan Assessment/Recommendations: Mr. Soriano is a 71-yo male with HTN, CAD s/p CABG, bioprosthetic AVR, DENA, and recent DVT/PE who presents with abdominal pain and elevated LFT. There is concerns for choledocholithiasis and plan to perform ERCP. He was diagnosed with PE and DVT in August 2016 after hospitalization, ESWL procedure, and RP hematoma. VTE was felt to be provoked. Due to the provoked and recent nature of thrombosis (<3 months), he would be at high risk for new VTE. He is being bridged with heparin prior to ERCP. He will be bridged back after procedure. Recommendations: 1. Perioperative bridging with heparin Please call [phone] with any questions. Problem List: 1. Elevated LFTs 2. History of hepatitis C 3. Supratherapeutic INR 4. Bilateral pulmonary embolism 5. DVT (deep venous thrombosis)
[2016-10-19 12:58] LABS: PT 15.6 SEC (9.4-12.5)
[2016-10-19 13:25] LABS: PTT 30 SEC (25-37)
[2016-10-19 15:07] VITALS: BP 135/79
--- NOTE | 2016-10-19 17:06 | Proc Note ERCP ---
ERCP Procedure Procedure Date: 10/19/16 GI Procedure(s): ERCP with papillary balloon dilatation/stone paving machine operator: Crispin Alvares M.D. ASA Classification: III Indications: Pain, elevated liver enzymes, choledocholithiasis on CT scan Instrument: duodenoscope Meds Received: MAC (nasal mask) Patient's Tolerance: good Complications: none Procedure: The patient signed informed consent, was brought to the operating room and turned into the prone position, and was medicated. Pulse oximetry, blood pressure and cardiac monitoring were performed continuously throughout the procedure. The Olympus high-definition V duodenoscope was inserted into the mouth and advanced to the duodenum. The stomach was not examined in detail. The gastric outlet and duodenum were normal. There was a divided papilla/status post sphincterotomy. The common bile duct was cannulated and opacified. The pancreatic duct was not cannulated/ injected. The cholangiogram demonstrated mild dilatation of the common bile duct and common hepatic duct with normal contour, and normal hepatic ducts. The cystic duct did not fill. There was a single mobile round filling defect within the CBD. The papilla was dilated with a CRE balloon, to 12 mm for 30 seconds, and 13.5 mm for 15 seconds. There was self-limited bleeding. There was a small clot within the ampulla at the end of the procedure. A stone was removed with an extraction balloon. A follow-up occlusion cholangiogram and sweep were negative. Impression: * Choledocholithiasis * Sphincteroplasty performed; stone extracted Recommendations: * Because of post-sphincteroplasty bleeding, would not start heparin for 12 hours. Following this, would wait at least 24 more hours with careful observation for bleeding (CBC, vital signs, development of melena, etc.) prior to consideration for oral anticoagulation. * Clear liquid diet today, advance to regular tomorrow * Follow-up liver enzymes and CBC tomorrow and on Saturday CC: LONNY GARCIA,INO Hilliard; ALEXANDER GARCIA,ABDULLAHI; JOE GARCIA,WOOD CHIRINOS MD,MARIN RAHMAN MD PhD,EARNEST Barby
[2016-10-19 18:27] VITALS: BP 156/78
[2016-10-19 22:30] VITALS: BP 138/78
--- NOTE | 2016-10-19 22:56 | RADIOLOGY REPORT ---
EXAMINATION: XR BILIARY AND PANCREATIC ERCP CLINICAL INFORMATION: Abdominal pain. COMPARISON: None TECHNIQUE: 7 fluoroscopic images for ERCP. FINDINGS: The initial image demonstrates cannulation of the common bile duct with retrograde injection of contrast on subsequent imaging. There is a single filling defect noted which is mobile within the duct. Evidence of balloon runs. Per technologist note, one stone was removed from the common bile duct. FLUOROSCOPY TIME: 2 minutes 26 seconds NUMBER OF IMAGES: 7 IMPRESSION: Fluoroscopic guidance for ERCP with removal of a stone.
[2016-10-20 07:22] VITALS: BP 138/76
--- NOTE | 2016-10-20 08:12 | PN- Housestaff ---
See Addendum Subjective Follow-up For: choledocholithiasis Subjective: pt seen today, sp ercp heparin was held for 12 hrs as per GI. since h/h stable, heparin will be resumed this am, will wait another 24 hrs before starting coumadin as per GI. pt aware that he will most likely stay in the hospital over the weekend as he needs to be on heparin drip until his inr is therapeutic. he has tolerated clear liquid well, will advance to full liquid for lunch and regular diet for dinner if tolerates well. his pain is about 2/10 right now, abdomen (RUQ,LLQ) tender to light touch. he reports pain was well controlled overnight and he was able to sleep well labs reviewed hb 16.3 to 16.8 inr 1.41 k 3.1 --> 3.4, will give one time kdur ast 158 to 126 alt 158 to 126 alk phos 280 to 268 Review of Systems Constitutional: Reports: see HPI. Objective Last 24 Hrs of Vital Signs/I&O Vital Signs Date Time Temp Pulse Resp B/P B/P Pulse O2 O2 Flow FiO2 Mean Ox Delivery Rate 10/20 0722 98.9 64 18 138/76 94 Room Air 10/19 2232 84 138/78 10/19 2230 98.8 84 18 138/78 92 Room Air 10/19 1827 98.1 71 18 156/78 92 Room Air 10/19 1507 98.1 73 18 135/79 92 Room Air 10/19 1101 74 140/84 Intake & Output 10/20 1600 10/20 0800 10/20 0000 Intake Total 120 240 Output Total 300 900 Balance -180 -660 Intake, Oral 120 240 Output, Urine 300 900 Physical Exam General Appearance: Alert, Oriented X3, Cooperative, No Acute Distress Cardiovascular: + murmur Lungs: Clear to Auscultation Abdomen: Normal Bowel Sounds, Soft, + tender to light palpation RUQ and LLQ Extremities: No Edema Current Medications: Current Medications Sig/Geri Start time Last Medication Dose Route Stop Time Status Admin Allopurinol 300 MG DAILY 10/17 1000 AC 05/ PO 1102 Amlodipine Besylate 10 MG DAILY 10/17 1000 AC 05/ PO 1101 Artificial Tears 2 GTT 4 TIMES/DAY 10/16 2244 AC 10/19 OPH 2233 Chlorthalidone 25 MG QAM 05/10 1000 AC 05/ PO 1102 Dexamethasone 4 MG .STK-MED ONE 10/19 1546 DC IM 10/19 1547 Dicyclomine HCl 20 MG 4 TIMES/DAY PRN 10/17 2215 AC PO Docusate Sodium 100 MG DAILY 10/17 1000 AC 10/19 PO 1102 Ezetimibe 10 MG DAILY 10/17 1000 AC 10/19 PO 1102 Fentanyl Citrate 200 MCG .STK-MED ONE 10/19 1545 DC IM 10/19 1546 Ferrous Sulfate 325 MG BID 10/17 1000 AC 10/19 PO 2232 Fluticasone 2 SPRAY DAILY 10/17 1000 AC 10/19 Propionate JEF 1100 Heparin Sodium 25,000 UNIT Q24H 10/20 0930 AC (Porcine) IV Sodium Chloride 500 ML Heparin Sodium 25,000 UNIT Q24H 10/19 1600 DC (Porcine) IV Sodium Chloride 500 ML Ketamine HCl 50 MG .STK-MED ONE 10/19 1713 DC IM 10/19 1714 Levothyroxine Sodium 0.137 MG 0700 10/17 0700 AC 10/20 PO 0710 Magnesium Hydroxide 5 ML Q12P PRN 10/16 2245 AC PO Memantine 10 MG BID 10/16 2231 AC 10/19 PO 2232 Metoprolol Tartrate 75 MG BID 10/17 1000 AC 10/19 PO 2232 Midazolam HCl 4 MG .STK-MED ONE 10/19 1545 DC IM 10/19 1546 Morphine Sulfate 2 MG Q6-PRN PRN 10/16 2230 AC 10/19 IV 1818 Nitroglycerin 0.4 MG DAILY 10/17 1000 AC 10/19 TOP 1100 Omeprazole 40 MG DAILY AC 10/17 0700 AC 10/20 PO 0710 Ondansetron HCl 4 MG .STK-MED ONE 10/19 1546 DC IM 10/19 1547 Oxycodone HCl 5 MG .STK-MED ONE 10/19 2025 DC PO 10/19 2026 Oxycodone HCl 5 MG Q6P PRN 10/16 2230 AC 10/19 PO 2027 Patient Medication 1 ED .STK-MED ONE 10/19 1352 DC Teaching ED 10/19 1353 Potassium Chloride 40 MEQ ONCE ONE 10/20 0930 DC PO 10/20 0931 Potassium Chloride 10 MEQ ONCE ONE 10/19 1045 DC 0512 IV 10/19 1046 1100 Potassium Chloride 40 MEQ ONCE ONE 10/19 1045 DC 10/19 PO 10/19 1046 1101 Prednisolone 1 GTT DAILY 10/17 1000 AC 10/19 OPH 1101 Tamsulosin HCl 0.4 MG QPM 10/17 2200 AC 10/19 PO 2232 Tramadol HCl 50 MG Q8P PRN 10/17 0230 AC 10/20 PO 0012 Warfarin Sodium 2.5 MG COUMADIN 1700 ONE 10/19 1900 DC PO 10/19 1901 Warfarin Sodium 5 MG COUMADIN 1700 ONE 10/19 1700 DC PO 10/19 1701 Last 24 Hrs of Lab/Gregory Results Last 24 Hrs of Labs/Mics: Laboratory Tests 10/20/16 0630: Anion Gap 10, Estimated GFR > 60, BUN/Creatinine Ratio 15.0, Total Bilirubin 1.0 , Direct Bilirubin 0.2, AST 28, ALT 126 H, Alkaline Phosphatase 268 H, Total Protein 6.4, Albumin 3.5, PT 14.8 H, INR 1.41 H, CBC w Diff NO MAN DIFF REQ, RBC 5.98, MCV 82.6, MCH 28.1, RDW 15.6 H, MPV 7.7, Gran % 52.0, Lymphocytes % 36.1, Monocytes % 10.4 H, Eosinophils % 1.0, Basophils % 0.5, Absolute Granulocytes 3.2, Absolute Lymphocytes 2.2, Absolute Monocytes 0.6, Absolute Eosinophils 0.1, Absolute Basophils 0, PUBS MCHC 34.0 10/19/16 1236: PT 15.6 H, INR 1.49 H, APTT 30 Assessment/Plan Assessment: 71 y/o M qith PMH of HTN, CAD s/p stent and 2 vessel CABG, bioprosthetic AVR, DENA on CPAP, HTN and recent hospitalization for subcapsular and RP hematoma s/p ESWL, now on Coumadin for DVT, who presents to the ED with abnormal LFT's noted by his PCP. He did experience some epigastric and RUQ pain. CTA A/P showed thr presence of choledocholithiasis with no biliary duct dilation and torsed epiploic appendagitis. Trops x 3 were negative. Problem List: 1) Choledocholithiasis with elevated LFT's 2) CTA A/P showing epiploic appendagitis. 3) H/O CAD s/p CABG with recent stress test showing the presence of small region of ischemia in the inferior wall. 4) Bioprosthetic AVR 5) H/O DVT/PE on Coumadin 5) DENA on CPAP 6) HTN Plan: * Monitor on GM * Patient has been seen by GI, ERCP done on 10/19. * Heparin was on hold 12 hrs sp ERCP due to bleeding, h/h and VS WNL, heparin resumed 10/20 am , coumadin to be resumed 10/21/16 as per GI . trend cbc, lft * 1Xkdur given, recheck K in am * Continue other home medications for now. * Pain Management: Currently on Morphine 2 mg Q6PRN IV and Roxicodone 5 mg Q6P. Well controlled. continue for now. * DVT PPx: Heparin gtt * Code Status: Full Code. Problem List: 1. Choledocholithiasis Pain Ratin Pain Location: RUQ Pain Goal: Pain 4 or less Pain Plan: morphine Tomorrow's Labs & Rationales: cbc for h/h sp ercp with bleeding inr for coumadin dosing lft for transaminitis bep for hypokalemia DVT/Prophylaxis: mechanical, pharmacological Consulting Request: Consulting Specialty: Gastroenterology Consulting Physician: Dr. Smith
[2016-10-20 08:32] LABS: PT 14.8 SEC (9.4-12.5)
[2016-10-20 08:39] LABS: ABSOLUTE BASOPHIL COUNT 0 /CUMM (0.0-0.2); ABSOLUTE EOSINOPHIL COUNT 0.1 /CUMM (0.0-0.7); ABSOLUTE GRANULOCYTE CT 3.2 /CUMM (1.4-6.5); ABSOLUTE LYMPH COUNT 2.2 /CUMM (1.2-3.4); ABSOLUTE MONOCYTE COUNT 0.6 /CUMM (0.10-0.60); BASOPHIL % 0.5 % (0.0-2.0); HEMATOCRIT 49.4 % (42-52); MEAN CORPUSCULAR HGB 28.1 PG (27.0-31.0); MEAN CORPUSCULAR VOLUME 82.6 FL (80.0-94.0); MEAN PLATELET VOLUME 7.7 FL (7.4-10.4); PLATELET COUNT 176 /CUMM (130-400); RBC DISTRIBUTION WIDTH 15.6 % (11.5-14.5); RED BLOOD CELL CT 5.98 /CUMM (4.70-6.10); WHITE BLOOD CELL COUNT 6.1 /CUMM (4.8-10.8)
--- NOTE | 2016-10-20 13:27 | PN- Gastroenterology ---
Assessment/Plan Assessment/Recommendations: 71 y/o M qith PMH of HTN, CAD s/p stent and 2 vessel CABG, bioprosthetic AVR, DENA on CPAP, HTN and recent hospitalization for subcapsular and RP hematoma s/p ESWL, now on Coumadin for DVT, who presents to the ED with abnormal LFT's noted by his PCP. He did experience some epigastric and RUQ pain. CTA A/P showed thr presence of choledocholithiasis with no biliary duct dilation and torsed epiploic appendagitis. Trops x 3 were negative. Reasonably comfortable in bed this morning. No nausea vomiting. Some mild epigastric discomfort. 15 minutes of pain radiating to the left flank last night. Taking small amounts of soft food. This is first oral intake for almost 4 days. Afebrile no right goers or chills. Abdomen soft nontender. Bowel sounds present. Successful ERCP yesterday. Patient had had a sphincterotomy. Papilla was balloon dilated with removal of CBD stone. Agree with conversion from heparin to Coumadin. Advance diet as tolerated. We'll continue to follow with you. Subjective Subjective: x Objective Vital Signs and I&Os Vital Signs Date Time Temp Pulse Resp B/P B/P Pulse O2 O2 Flow FiO2 Mean Ox Delivery Rate 10/20 1038 65 146/78 10/20 0722 98.9 64 18 138/76 94 Room Air 10/19 2232 84 138/78 10/19 2230 98.8 84 18 138/78 92 Room Air 10/19 1827 98.1 71 18 156/78 92 Room Air 10/19 1507 98.1 73 18 135/79 92 Room Air Intake & Output 10/20 1600 10/20 0400 10/19 1600 10/19 0400 10/18 1600 10/18 0400 Intake Total 120 240 037 187 4787 600 Output Total 300 900 500 900 200 750 Balance -180 -660 -135 -345 950 -150 Intake, IV 275 75 150 600 Intake, Oral 120 240 90 480 1000 Number 3 1 Bowel Movements Output, Urine 300 900 500 900 200 750 Patient 200 lb Weight Weight Standing Scale Measurement Method Results Pertinent Lab Results: Laboratory Tests 10/20 10/19 0630 1236 Chemistry Sodium (137 - 145 mmol/L) 136 L Potassium (3.5 - 5.1 mmol/L) 3.4 L Chloride (98 - 107 mmol/L) 99 Carbon Dioxide (22 - 30 mmol/L) 27 Anion Gap (5 - 16) 10 BUN (9 - 20 mg/dL) 12 Creatinine (0.7 - 1.2 mg/dL) 0.8 Estimated GFR (>60 ml/min) > 60 BUN/Creatinine Ratio (7 - 25 %) 15.0 Total Bilirubin (0.2 - 1.3 mg/dL) 1.0 Direct Bilirubin (< 0.4 mg/dL) 0.2 AST (17 - 59 U/L) 28 ALT (21 - 72 U/L) 126 H Alkaline Phosphatase (< 127 U/L) 268 H Total Protein (6.3 - 8.2 g/dL) 6.4 Albumin (3.5 - 5.0 g/dL) 3.5 Coagulation PT (9.4 - 12.5 SEC) 14.8 H 15.6 H INR (0.90 - 1.17) 1.41 H 1.49 H APTT (25 - 37 SEC) 30 Hematology CBC w Diff NO MAN DIFF REQ WBC (4.8 - 10.8 /CUMM) 6.1 RBC (4.70 - 6.10 /CUMM) 5.98 Hgb (14.0 - 18.0 G/DL) 16.8 Hct (42 - 52 %) 49.4 MCV (80.0 - 94.0 FL) 82.6 MCH (27.0 - 31.0 PG) 28.1 RDW (11.5 - 14.5 %) 15.6 H Plt Count (130 - 400 /CUMM) 176 MPV (7.4 - 10.4 FL) 7.7 Gran % (42.2 - 75.2 %) 52.0 Lymphocytes % (20.5 - 51.1 %) 36.1 Monocytes % (1.7 - 9.3 %) 10.4 H Eosinophils % (0 - 5 %) 1.0 Basophils % (0.0 - 2.0 %) 0.5 Absolute Granulocytes (1.4 - 6.5 /CUMM) 3.2 Absolute Lymphocytes (1.2 - 3.4 /CUMM) 2.2 Absolute Monocytes (0.10 - 0.60 /CUMM) 0.6 Absolute Eosinophils (0.0 - 0.7 /CUMM) 0.1 Absolute Basophils (0.0 - 0.2 /CUMM) 0 PUBS MCHC (33.0 - 37.0 G/DL) 34.0 10/19 10/19 0715 0600 Chemistry Sodium (137 - 145 mmol/L) 138 Potassium (3.5 - 5.1 mmol/L) 3.1 L Chloride (98 - 107 mmol/L) 99 Carbon Dioxide (22 - 30 mmol/L) 27 Anion Gap (5 - 16) 11 BUN (9 - 20 mg/dL) 12 Creatinine (0.7 - 1.2 mg/dL) 0.8 Estimated GFR (>60 ml/min) > 60 BUN/Creatinine Ratio (7 - 25 %) 15.0 Total Bilirubin (0.2 - 1.3 mg/dL) 0.8 Direct Bilirubin (< 0.4 mg/dL) 0.2 AST (17 - 59 U/L) 32 ALT (21 - 72 U/L) 158 H Alkaline Phosphatase (< 127 U/L) 280 H Total Protein (6.3 - 8.2 g/dL) 6.1 L Albumin (3.5 - 5.0 g/dL) 3.3 L Coagulation PT (9.4 - 12.5 SEC) 16.8 H INR (0.90 - 1.17) 1.61 H Hematology CBC w Diff NO MAN DIFF REQ WBC (4.8 - 10.8 /CUMM) 6.1 RBC (4.70 - 6.10 /CUMM) 5.82 Hgb (14.0 - 18.0 G/DL) 16.3 Hct (42 - 52 %) 48.5 MCV (80.0 - 94.0 FL) 83.3 MCH (27.0 - 31.0 PG) 28.0 RDW (11.5 - 14.5 %) 15.4 H Plt Count (130 - 400 /CUMM) 186 MPV (7.4 - 10.4 FL) 7.5 Gran % (42.2 - 75.2 %) 51.8 Lymphocytes % (20.5 - 51.1 %) 36.8 Monocytes % (1.7 - 9.3 %) 9.3 Eosinophils % (0 - 5 %) 1.4 Basophils % (0.0 - 2.0 %) 0.7 Absolute Granulocytes (1.4 - 6.5 /CUMM) 3.2 Absolute Lymphocytes (1.2 - 3.4 /CUMM) 2.3 Absolute Monocytes (0.10 - 0.60 /CUMM) 0.6 Absolute Eosinophils (0.0 - 0.7 /CUMM) 0.1 Absolute Basophils (0.0 - 0.2 /CUMM) 0 PUBS MCHC (33.0 - 37.0 G/DL) 33.7 Serology Hep Bs Antigen (NONREACTIVE) NONREACTIVE HCV RNA (PCR) IUs/ml (<15 IU/mL) <15 NOT DETECTED HCV RNA PCR log IUs/ml (<1.18) <1.18 NOT DETECTED 10/19 10/18 10/18 0500 2021 1350 Coagulation APTT (25 - 37 SEC) > 120 *H 39 H 114 *H 10/18 10/18 0640 0600 Chemistry Sodium (137 - 145 mmol/L) 137 Potassium (3.5 - 5.1 mmol/L) 3.7 Chloride (98 - 107 mmol/L) 99 Carbon Dioxide (22 - 30 mmol/L) 32 H Anion Gap (5 - 16) 6 BUN (9 - 20 mg/dL) 13 Creatinine (0.7 - 1.2 mg/dL) 0.9 Estimated GFR (>60 ml/min) > 60 BUN/Creatinine Ratio (7 - 25 %) 14.4 Total Bilirubin (0.2 - 1.3 mg/dL) 0.7 Direct Bilirubin (< 0.4 mg/dL) 0.2 AST (17 - 59 U/L) 47 ALT (21 - 72 U/L) 200 H Alkaline Phosphatase (< 127 U/L) 273 H Total Protein (6.3 - 8.2 g/dL) 5.7 L Albumin (3.5 - 5.0 g/dL) 3.0 L Coagulation PT (9.4 - 12.5 SEC) 18.3 H INR (0.90 - 1.17) 1.75 H Hematology CBC w Diff NO MAN DIFF REQ WBC (4.8 - 10.8 /CUMM) 6.0 RBC (4.70 - 6.10 /CUMM) 5.52 Hgb (14.0 - 18.0 G/DL) 15.4 Hct (42 - 52 %) 46.1 MCV (80.0 - 94.0 FL) 83.5 MCH (27.0 - 31.0 PG) 27.8 RDW (11.5 - 14.5 %) 15.9 H Plt Count (130 - 400 /CUMM) 181 MPV (7.4 - 10.4 FL) 7.6 Gran % (42.2 - 75.2 %) 48.5 Lymphocytes % (20.5 - 51.1 %) 40.0 Monocytes % (1.7 - 9.3 %) 9.7 H Eosinophils % (0 - 5 %) 1.2 Basophils % (0.0 - 2.0 %) 0.6 Absolute Granulocytes (1.4 - 6.5 /CUMM) 2.9 Absolute Lymphocytes (1.2 - 3.4 /CUMM) 2.4 Absolute Monocytes (0.10 - 0.60 /CUMM) 0.6 Absolute Eosinophils (0.0 - 0.7 /CUMM) 0.1 Absolute Basophils (0.0 - 0.2 /CUMM) 0 PUBS MCHC (33.0 - 37.0 G/DL) 33.3 Immunology RAMANA Titer ND Anti-Nuclear Antibody (NEG,1:40) NEG 1:40 IFA ASSAY Serology Hepatitis A IgM Ab (NONREACTIVE) NONREACTIVE Hep Bs Antibody (NONREACTIVE) NONREACTIVE Hep B Core IgM Ab Conf (NONREACTIVE) NONREACTIVE Hepatitis C Antibody (NONREACTIVE) REACTIVE H HIV 1&2 Ab Western Blot (NONREACTIVE) NONREACTIVE 10/18 10/17 10/17 0150 1900 1823 Coagulation APTT (25 - 37 SEC) 74 H 106 *H Toxicology Urine Opiates Screen (>2000 NG/ML) 148.00 Methadone Screen (>300 NG/ML) < 40 Barbiturate Screen (>200 NG/ML) < 60 Ur Phencyclidine Scrn (>25 NG/ML) < 6.00 Amphetamines Screen (>1000 NG/ML) < 100 U Benzodiazepines Scrn (>200 NG/ML) < 85 Urine Cocaine Screen (>300 NG/ML) < 50 Urine Cannabis Screen (>50 NG/ML) < 5.00 Urines Urine Color (YEL,AMB,STR) YEL Urine Clarity (CLEAR) CLEAR Urine pH (5.0 - 8.0) 7.5 Ur Specific [place] (1.001 - 1.035) 1.010 Urine Protein (NEG,<30 MG/DL) NEG Urine Ketones (NEG) NEG Urine Nitrite (NEG) NEG Urine Bilirubin (NEG) NEG Urine Urobilinogen (0.1 - 1.0 EU/dl) 0.2 Ur Leukocyte Esterase (NEG) NEG Ur Microscopic EXAM NOT REQUIRED Urine Hemoglobin (NEG) NEG Urine Glucose (N MG/DL) NEG
[2016-10-20 15:04] VITALS: BP 124/70
[2016-10-20 18:17] LABS: PTT 49 SEC (25-37)
[2016-10-20 23:05] VITALS: BP 124/70
[2016-10-21 01:32] LABS: PTT > 120 SEC (25-37)
[2016-10-21 06:48] VITALS: BP 132/72
--- NOTE | 2016-10-21 07:49 | PN- Housestaff ---
See Addendum Subjective Follow-up For: choledocholithiasis sp ercp Subjective: pt again reported that he slept well last night and is very pleased, minimal pain currently. h/h and vitals are wnl, will resume coumadin at home dose of 5 mg today. inr today 1.29, still on heparin drip lft improving Review of Systems Constitutional: Reports: see HPI. Objective Last 24 Hrs of Vital Signs/I&O Vital Signs Date Time Temp Pulse Resp B/P B/P Pulse O2 O2 Flow FiO2 Mean Ox Delivery Rate 10/21 0918 57 132/72 10/21 0648 97.7 57 18 132/72 93 Room Air 10/21 0010 65 93 10/20 2305 97.8 64 20 124/70 94 Room Air 10/20 2117 68 148/80 10/20 1504 98.3 62 18 124/70 93 Room Air 10/20 1353 Room Air Intake & Output 10/21 1600 10/21 0800 10/21 0000 Intake Total 200 358.4 Output Total 1600 Balance 200 -1241.6 Intake, IV 200 118.4 Intake, Oral 240 Output, Urine 1600 Physical Exam General Appearance: Alert, Oriented X3, Cooperative, No Acute Distress HEENT: Atraumatic Cardiovascular: Regular Rate, Normal S1, Normal S2, No Murmurs Lungs: Clear to Auscultation, Normal Air Movement Abdomen: Normal Bowel Sounds, Soft, No Tenderness Extremities: No Edema Current Medications: Current Medications Sig/Geri Start time Last Medication Dose Route Stop Time Status Admin Allopurinol 300 MG DAILY 10/17 1000 AC 10/21 PO 0919 Amlodipine Besylate 10 MG DAILY 10/17 1000 AC 10/21 PO 0918 Artificial Tears 2 GTT 4 TIMES/DAY 10/16 2244 AC 10/21 OPH 0929 Chlorthalidone 25 MG QAM 10/17 1000 AC 10/21 PO 0919 Dicyclomine HCl 20 MG 4 TIMES/DAY PRN 10/17 2215 AC 10/20 PO 1710 Docusate Sodium 100 MG DAILY 10/17 1000 AC 10/21 PO 0916 Ezetimibe 10 MG DAILY 10/17 1000 AC 10/21 PO 0918 Ferrous Sulfate 325 MG BID 10/17 1000 AC 10/21 PO 0916 Fluticasone 2 SPRAY DAILY 10/17 1000 AC 10/21 Propionate JEF 0920 Heparin Sodium 3,630 UNIT ONE ONE 10/20 1836 DC 10/20 (Porcine) IV 10/20 183 1845 Heparin Sodium 25,000 UNIT Q24H 10/20 0930 AC 10/21 (Porcine) IV 1042 Sodium Chloride 500 ML Levothyroxine Sodium 0.137 MG 0700 10/17 0700 AC 10/21 PO 0646 Magnesium Hydroxide 5 ML Q12P PRN 10/16 2245 AC PO Memantine 10 MG BID 10/16 2231 AC 10/21 PO 0917 Metoprolol Tartrate 75 MG BID 10/17 1000 AC 10/21 PO 0917 Morphine Sulfate 2 MG Q6-PRN PRN 10/16 2230 AC 10/20 IV 1524 Nitroglycerin 0.4 MG DAILY 10/17 1000 AC 10/20 TOP 1034 Omeprazole 40 MG DAILY AC 10/17 0700 AC 10/21 PO 0646 Oxycodone HCl 5 MG .STK-MED ONE 10/21 0006 DC PO 10/21 0007 Oxycodone HCl 5 MG .STK-MED ONE 10/20 1705 DC PO 10/20 1706 Oxycodone HCl 5 MG Q6P PRN 10/16 2230 AC 10/21 PO 0006 Potassium Chloride 40 MEQ ONCE ONE 10/21 1400 UNVr PO 10/21 1401 Potassium Chloride 20 MEQ BID 10/21 1000 AC 10/21 PO 0916 Prednisolone 1 GTT DAILY 10/17 1000 HI 10/19 OPH 1101 Tamsulosin HCl 0.4 MG QPM 10/17 2200 10/20 PO 2117 Tramadol HCl 50 MG Q8P PRN 10/17 0230 AC 10/20 PO 1848 Warfarin Sodium 5 MG COUMADIN 1700 ONE 10/21 1700 UNVr PO 10/21 1701 Last 24 Hrs of Lab/Gregory Results Last 24 Hrs of Labs/Mics: Laboratory Tests 10/21/16 0830: PT 13.5 H, INR 1.29 H 10/21/16 0830: Anion Gap 10, Estimated GFR > 60, BUN/Creatinine Ratio 18.9, Total Bilirubin 0.9 , Direct Bilirubin 0.2, AST 26, ALT 103 H, Alkaline Phosphatase 247 H, Total Protein 6.5, Albumin 3.5, APTT 99 H, CBC w Diff NO MAN DIFF REQ, RBC 5.98, MCV 82.6, MCH 27.7, RDW 15.9 H, MPV 7.7, Gran % 54.8, Lymphocytes % 34.5, Monocytes % 8.3, Eosinophils % 1.7, Basophils % 0.7, Absolute Granulocytes 3.7, Absolute Lymphocytes 2.4, Absolute Monocytes 0.6, Absolute Eosinophils 0.1, Absolute Basophils 0, PUBS MCHC 33.5 10/21/16 0040: APTT > 120 *H 10/20/16 1735: APTT 49 H Assessment/Plan Assessment: 71 y/o M qith PMH of HTN, CAD s/p stent and 2 vessel CABG, bioprosthetic AVR, DENA on CPAP, HTN and recent hospitalization for subcapsular and RP hematoma s/p ESWL, now on Coumadin for DVT, who presents to the ED with abnormal LFT's noted by his PCP. He did experience some epigastric and RUQ pain. CTA A/P showed thr presence of choledocholithiasis with no biliary duct dilation and torsed epiploic appendagitis. Trops x 3 were negative. Problem List: 1) Choledocholithiasis with elevated LFT's 2) CTA A/P showing epiploic appendagitis. 3) H/O CAD s/p CABG with recent stress test showing the presence of small region of ischemia in the inferior wall. 4) Bioprosthetic AVR 5) H/O DVT/PE on Coumadin 5) DENA on CPAP 6) HTN Plan: * Monitor on * Patient has been seen by GI, ERCP done on 10/19. * Heparin was on hold 12 hrs sp ERCP due to bleeding, h/h and VS WNL, heparin resumed 10/20 am , coumadin to be resumed 10/21/16 as per GI . trend cbc, lft * pt takes kdur 20 bid at home, resumed, replete more as needed * Continue other home medications for now. * Pain Management: Currently on Morphine 2 mg Q6PRN IV and Roxicodone 5 mg Q6P. Well controlled. continue for now. * DVT PPx: Heparin gtt * Code Status: Full Code. Problem List: 1. Choledocholithiasis 2. S/P ERCP Pain Ratin Pain Location: none Pain Goal: Remain pain free Pain Plan: mild pp Tomorrow's Labs & Rationales: cbc for h/h on heparin and coumadin bep for hypokalemia lft for transaminitis sp ercp inr for coumadin dosing DVT/Prophylaxis: mechanical, pharmacological Consulting Request: Consulting Specialty: Gastroenterology Consulting Physician: Dr. Smith
[2016-10-21 09:42] LABS: ABSOLUTE BASOPHIL COUNT 0 /CUMM (0.0-0.2); ABSOLUTE EOSINOPHIL COUNT 0.1 /CUMM (0.0-0.7); ABSOLUTE GRANULOCYTE CT 3.7 /CUMM (1.4-6.5); ABSOLUTE LYMPH COUNT 2.4 /CUMM (1.2-3.4); ABSOLUTE MONOCYTE COUNT 0.6 /CUMM (0.10-0.60); BASOPHIL % 0.7 % (0.0-2.0); EOSINOPHIL % 1.7 % (0-5); GRANULOCYTE % 54.8 % (42.2-75.2); HEMATOCRIT 49.4 % (42-52); MEAN CORPUSCULAR HGB 27.7 PG (27.0-31.0); MEAN CORPUSCULAR HGB CONC 33.5 G/DL (33.0-37.0); MEAN CORPUSCULAR VOLUME 82.6 FL (80.0-94.0); MEAN PLATELET VOLUME 7.7 FL (7.4-10.4); PLATELET COUNT 159 /CUMM (130-400); RBC DISTRIBUTION WIDTH 15.9 % (11.5-14.5); RED BLOOD CELL CT 5.98 /CUMM (4.70-6.10); WHITE BLOOD CELL COUNT 6.8 /CUMM (4.8-10.8)
[2016-10-21 09:51] LABS: PT 13.5 SEC (9.4-12.5)
[2016-10-21 09:54] LABS: PTT 99 SEC (25-37)
[2016-10-21 15:20] VITALS: BP 122/80; BP 140/80
[2016-10-21 17:24] LABS: PTT 61 SEC (25-37)
[2016-10-21 22:39] VITALS: BP 135/85
[2016-10-22 06:46] VITALS: BP 120/78
--- NOTE | 2016-10-22 07:23 | PN- Housestaff ---
SINTIA GARCIA,KENIA 10/22/16 0723: Subjective Follow-up For: Choledocholithiasis Epipploic Appendagitis Supratherapeutic INR with H/O of DVT/PE Subacute Subcapsular Renal Hematoma Subjective: Patient is lying in bed with no complaints. Review of Systems Constitutional: Reports: see HPI. Objective Last 24 Hrs of Vital Signs/I&O Vital Signs Date Time Temp Pulse Resp B/P B/P Pulse O2 O2 Flow FiO2 Mean Ox Delivery Rate 10/22 0646 98.0 73 20 120/78 92 CPAP 10/22 0131 87 93 10/21 223 98.0 82 20 135/85 95 Room Air 10/21 2238 135/85 10/21 1520 97.5 84 20 140/80 96 Room Air 10/21 0918 57 132/72 Intake & Output 10/22 1600 10/22 0800 10/22 0000 Intake Total 179.2 187.2 Output Total 300 725 Balance -120.8 -537.8 Intake, IV 179.2 67.2 Intake, Oral 120 Output, Urine 300 725 Physical Exam General Appearance: Alert, Oriented X3, Cooperative, No Acute Distress Cardiovascular: Regular Rate, Normal S1, Normal S2, No Murmurs Lungs: Clear to Auscultation, Normal Air Movement Abdomen: Normal Bowel Sounds, Soft, Tenderness to palpation present on the left side of the abdomen, no rebound noted. Neurological: Normal Speech, Strength at 5/5 X4 Ext, Normal Tone, Sensation Intact Current Medications: Current Medications Sig/Geri Start time Last Medication Dose Route Stop Time Status Admin Allopurinol 300 MG DAILY 10/17 999 AC 10/21 PO 19 Amlodipine Besylate 10 MG DAILY 10/17 999 AC 10/21 PO 0918 Artificial Tears 2 GTT 4 TIMES/DAY 10/16 2244 AC 10/21 OPH 2238 Chlorthalidone 25 MG QAM 10/17 999 AC 10/21 PO 0919 Dicyclomine HCl 20 MG 4 TIMES/DAY PRN 10/17 2215 AC 10/20 PO 1710 Docusate Sodium 100 MG DAILY 10/17 1000 AC 10/21 PO 0916 Ezetimibe 10 MG DAILY 10/17 999 AC 10/21 PO 0918 Ferrous Sulfate 325 MG BID 10/17 999 AC 10/21 PO 2237 Fluticasone 2 SPRAY DAILY 10/17 999 AC 10/21 Propionate JEF 0920 Heparin Sodium 25,000 UNIT Q24H 10/20 0930 AC 10/21 (Porcine) IV 1042 Sodium Chloride 500 ML Levothyroxine Sodium 0.137 MG 0710/17 0700 AC 10/22 PO 0727 Magnesium Hydroxide 5 ML Q12P PRN 10/16 2245 AC PO Memantine 10 MG BID 10/16 2231 AC 10/21 PO 223 Metoprolol Tartrate 75 MG BID 10/17 1000 AC 10/21 PO 223 Morphine Sulfate 2 MG Q6-PRN PRN 10/16 2230 AC 10/20 IV 1524 Nitroglycerin 0.4 MG 10/21 2200 AC 10/21 TOP 2236 Nitroglycerin 0.4 MG DAILY 10/17 1000 DC 10/20 TOP 1034 Omeprazole 40 MG DAILY AC 10/17 0700 AC 10/22 PO 0727 Oxycodone HCl 5 MG Q6P PRN 10/16 2230 AC 10/21 PO 0006 Patient Medication 1 UNIT ONE NR 10/21 1145 DC Teaching ED 10/21 1200 Potassium Chloride 40 MEQ ONCE ONE 10/21 1400 DC 10/21 PO 10/21 1401 1540 Potassium Chloride 20 MEQ BID 10/21 1000 AC 10/21 PO 2237 Tamsulosin HCl 0.4 MG QPM 10/17 2200 AC 10/21 PO 2238 Tramadol HCl 50 MG Q8P PRN 10/17 0230 AC 10/20 PO 1848 Warfarin Sodium 5 MG COUMADIN 1700 ONE 10/21 1700 DC 10/21 PO 10/21 1701 1753 Last 24 Hrs of Lab/Gregory Results Last 24 Hrs of Labs/Mics: Laboratory Tests 10/22/16 0620: Sodium Pending, Potassium Pending, Chloride Pending, Carbon Dioxide Pending, Anion Gap Pending, BUN Pending, Creatinine Pending, BUN/Creatinine Ratio Pending , Total Bilirubin Pending, Direct Bilirubin Pending, AST Pending, ALT Pending, Alkaline Phosphatase Pending, Total Protein Pending, Albumin Pending, PT Pending , INR Pending, APTT Pending, CBC w Diff Pending, WBC Pending, RBC Pending, Hgb Pending, Hct Pending, MCV Pending, MCH Pending, RDW Pending, Plt Count Pending, MPV Pending, PUBS MCHC Pending 10/22/16 0600: PT Cancelled, INR Cancelled 10/21/16 1651: APTT 61 H 10/21/16 0830: PT 13.5 H, INR 1.29 H 10/21/16 0830: Anion Gap 10, Estimated GFR > 60, BUN/Creatinine Ratio 18.9, Total Bilirubin 0.9 , Direct Bilirubin 0.2, AST 26, ALT 103 H, Alkaline Phosphatase 247 H, Total Protein 6.5, Albumin 3.5, APTT 99 H, CBC w Diff NO MAN DIFF REQ, RBC 5.98, MCV 82.6, MCH 27.7, RDW 15.9 H, MPV 7.7, Gran % 54.8, Lymphocytes % 34.5, Monocytes % 8.3, Eosinophils % 1.7, Basophils % 0.7, Absolute Granulocytes 3.7, Absolute Lymphocytes 2.4, Absolute Monocytes 0.6, Absolute Eosinophils 0.1, Absolute Basophils 0, PUBS MCHC 33.5 Lines/Diet/Fluids Lines: peripheral lines Assessment/Plan Assessment: 71 y/o M qith PMH of HTN, CAD s/p stent and 2 vessel CABG, bioprosthetic AVR, DENA on CPAP, HTN and recent hospitalization for subcapsular and RP hematoma s/p ESWL, now on Coumadin for DVT, who presents to the ED with abnormal LFT's noted by his PCP. He did experience some epigastric and RUQ pain. CTA A/P showed thr presence of choledocholithiasis with no biliary duct dilation and torsed epiploic appendagitis. Trops x 3 were negative. Problem List: 1) Choledocholithiasis with elevated LFT's 2) CTA A/P showing epiploic appendagitis. 3) H/O CAD s/p CABG with recent stress test showing the presence of small region of ischemia in the inferior wall. 4) Bioprosthetic AVR 5) H/O DVT/PE on Coumadin 5) DENA on CPAP 6) HTN Plan: * Monitor on GM * Patient has been seen by GI, ERCP done on 10/19 with removal of one CBD stone. He developed some bleeding afterwards. Heparin was held for 12 hours and then restarted. He received his first dose of coumadin yesterday. INR today is subtherapeutic. * As his left sided abdominal pain continues to be present, will request surgery to re-evaluate him. * Appreciate GI and Hematology recs. * Continue other home medications for now. * Pain Management: Currently on Morphine 2 mg Q6PRN IV and Roxicodone 5 mg Q6P. Well controlled. continue for now. * DVT PPx: Heparin gtt * Code Status: Full Code. Problem List: 1. Choledocholithiasis Pain Ratin Pain Location: None Pain Goal: Pain 4 or less Pain Plan: Per EMR. Tomorrow's Labs & Rationales: CBC, LFT, INR DVT/Prophylaxis: pharmacological Consulting Request: Consulting Specialty: Gastroenterology Consulting Physician: Dr. Luis WILLIAMSON MD,ROMÁN 10/22/16 1205: Attending MD Review Statement Attending Statement Attending MD Statement: examined this patient, discuss w/resident/PA/MYSQL DEVELOPER, agreed w/resident/PA/MYSQL DEVELOPER, reviewed EMR data (avail), discussed with nursing, reviewed images Attending Assessment/Plan: Patient is tolerating his diet okay but he continues to have this tenderness in his left flank/left upper quadrant area. He is a 71-year-old with a history of coronary artery disease, hypertension, bioprosthetic aortic valve, bypass and recent provoked DVT after ESWL complicated by a subcapsular renal hematoma. On the most recent imaging done the hematoma is stable and decreasing in size but there was a concern for "epiploic appendigitis". He also had evidence of choledocholithiasis and had an ERCP with sphincterotomy and sphincteroplasty on October 19. He is doing well and his alkaline phosphatase is coming down nicely to 220 but I am concerned about the ongoing tenderness. Dr. Up from surgery saw him and felt that this should be treated medically. We will recall him today as the patient is not on antibiotics and will follow-up as to the appropriate treatment. He is getting bridged with IV heparin and Coumadin and will dose Coumadin appropriately for the INR today.
[2016-10-22 08:19] LABS: PT 12.1 SEC (9.4-12.5); PTT 35 SEC (25-37)
[2016-10-22 08:34] LABS: ABSOLUTE BASOPHIL COUNT 0 /CUMM (0.0-0.2); ABSOLUTE EOSINOPHIL COUNT 0.1 /CUMM (0.0-0.7); ABSOLUTE GRANULOCYTE CT 4.2 /CUMM (1.4-6.5); ABSOLUTE LYMPH COUNT 2.5 /CUMM (1.2-3.4); ABSOLUTE MONOCYTE COUNT 0.7 /CUMM (0.10-0.60); BASOPHIL % 0.4 % (0.0-2.0); EOSINOPHIL % 1.1 % (0-5); GRANULOCYTE % 55.7 % (42.2-75.2); HEMATOCRIT 49.1 % (42-52); MEAN CORPUSCULAR HGB CONC 33.5 G/DL (33.0-37.0); MEAN CORPUSCULAR VOLUME 83.8 FL (80.0-94.0); MEAN PLATELET VOLUME 8.1 FL (7.4-10.4); PLATELET COUNT 165 /CUMM (130-400); RED BLOOD CELL CT 5.86 /CUMM (4.70-6.10); WHITE BLOOD CELL COUNT 7.5 /CUMM (4.8-10.8)
--- NOTE | 2016-10-22 12:14 | PN- Cardiology ---
Subjective Subjective: * Patient feels much improved. No chest discomfort or shortness of breath. His abdominal pain has lessened. * Doing well following ERCP. * The patient is on anticoagulation for a pulmonary embolism noted this past August. He also had paroxysmal atrial fibrillation after his heart surgery which is not an active issue and which does not, in itself, require chronic anticoagulation. His heart valve is bioprosthetic. Objective Vital Signs and I&Os Vital Signs Date Time Temp Pulse Resp B/P B/P Pulse O2 O2 Flow FiO2 Mean Ox Delivery Rate 10/22 0947 73 120/78 10/22 0646 98.0 73 20 120/78 92 CPAP 10/22 0131 87 93 10/21 2239 98.0 82 20 135/85 95 Room Air 10/21 2238 135/85 10/21 1520 97.5 84 20 140/80 96 Room Air Intake & Output 10/22 1600 10/22 0800 10/22 0000 10/21 1600 10/21 0800 10/21 0000 Intake Total 179.2 187.2 450 200 358.4 Output Total 300 448 699 5482 Balance -120.8 -537.8 -370 200 -1241.6 Intake, IV 179.2 67.2 210 200 118.4 Intake, Oral 120 240 240 Output, Urine 300 726 264 4128 Physical Exam: General: WD/ WN male in NAD; alert and oriented x 3 Heart RRR with 3/6 systolic murmur Lungs: clear bilaterally Abdomen: soft, mildly tender, +ve bowel sounds Extremities: no edema Assessment/Plan Assessment/Plan * This patient is on chronic anticoagulation for a PE noted this past August. This patient has had significant weight loss as well. We will consider restarting his statin on his office follow up. Keep INR 2-2.5. * No current evidence of myocardial ischemia or decompensated CHF. Continue telemetry? Yes
--- NOTE | 2016-10-22 13:13 | PN- Hematology ---
Subjective Subjective: He is feeling well. He denies any new pain. He is up and ambulating. Review of Systems: Constitutional: Denies: chills, fever. Cardiovascular: Denies: chest pain. Respiratory: Denies: short of breath. GI: Reports: abdominal pain, improved Genitourinary: Denies: dysuria. Musculoskeletal: Reports: back pain. Hematologic/Endocrine: Denies: bleeding. All Other Systems: Reviewed and Negative Objective Vital Signs and I&Os Vital Signs Date Time Temp Pulse Resp B/P B/P Pulse O2 O2 Flow FiO2 Mean Ox Delivery Rate 10/22 645 98.0 73 20 120/78 92 CPAP 10/22 0131 87 93 10/21 2238 98.0 82 20 135/85 95 Room Air 10/21 2238 135/85 10/21 1520 97.5 84 20 140/80 96 Room Air 10/21 0918 57 132/72 Intake & Output 10/22 1600 10/22 0800 10/22 0000 10/21 1600 10/21 0800 10/21 0000 Intake Total 179.2 187.2 450 200 358.4 Output Total 300 629 758 8792 Balance -120.8 -537.8 -370 200 -1241.6 Intake, IV 179.2 67.2 210 200 118.4 Intake, Oral 120 240 240 Output, Urine 300 962 280 9899 Physical Exam: General Appearance: alert, awake, comfortable Respiratory: normal breath sounds, chest non-tender, quiet respiration Cardiovascular: regular rate/rhythm, systolic murmur Gastrointestinal: normal bowel sounds, non-tender Extremities: no edema Neurologic/Psych: awake, alert, oriented x 3 Current Medications: Current Medications Sig/Geri Start time Last Medication Dose Route Stop Time Status Admin Allopurinol 300 MG DAILY 10/17 1000 AC 10/21 PO 19 Amlodipine Besylate 10 MG DAILY 10/17 1000 AC 10/21 PO 0918 Artificial Tears 2 GTT 4 TIMES/DAY 10/16 2244 AC 10/21 OPH 2238 Chlorthalidone 25 MG QAM 10/17 1000 AC 10/21 PO 0919 Dicyclomine HCl 20 MG 4 TIMES/DAY PRN 10/17 2215 AC 10/20 PO 1710 Docusate Sodium 100 MG DAILY 10/17 1000 AC 10/21 PO 0916 Ezetimibe 10 MG DAILY 10/17 1000 AC 10/21 PO 0918 Ferrous Sulfate 325 MG BID 10/17 1000 AC 10/21 PO 2237 Fluticasone 2 SPRAY DAILY 10/17 1000 AC 10/21 Propionate JEF 0920 Heparin Sodium 25,000 UNIT Q24H 10/20 0930 AC 10/21 (Porcine) IV 1042 Sodium Chloride 500 ML Levothyroxine Sodium 0.137 MG 0700 10/17 0700 AC 10/22 PO 0727 Magnesium Hydroxide 5 ML Q12P PRN 10/16 2245 AC PO Memantine 10 MG BID 10/16 223 AC 10/21 PO 2237 Metoprolol Tartrate 75 MG BID 10/17 1000 AC 10/21 PO 2237 Morphine Sulfate 2 MG Q6-PRN PRN 10/16 2230 AC 10/20 IV 1524 Nitroglycerin 0.4 MG 10/21 2200 AC 10/21 TOP 2236 Nitroglycerin 0.4 MG DAILY 10/17 1000 DC 10/20 TOP 1034 Omeprazole 40 MG DAILY AC 10/17 0700 AC 10/22 PO 0727 Oxycodone HCl 5 MG Q6P PRN 10/16 2230 AC 10/21 PO 0006 Patient Medication 1 UNIT ONE NR 10/21 1145 DC Teaching ED 10/21 1200 Potassium Chloride 40 MEQ ONCE ONE 10/21 1400 DC 10/21 PO 10/21 1401 1540 Potassium Chloride 20 MEQ BID 10/21 1000 AC 10/21 PO 2237 Tamsulosin HCl 0.4 MG QPM 10/17 2200 AC 10/21 PO 2238 Tramadol HCl 50 MG Q8P PRN 10/17 0230 AC 10/20 PO 1848 Warfarin Sodium 5 MG COUMADIN 1700 ONE 10/21 1700 DC 10/21 PO 10/21 1701 1753 Results Last 24 Hours of Lab Results: Laboratory Tests 10/22 10/22 10/21 0620 0600 1651 Chemistry Sodium (137 - 145 mmol/L) 138 Potassium (3.5 - 5.1 mmol/L) 3.7 Chloride (98 - 107 mmol/L) 99 Carbon Dioxide (22 - 30 mmol/L) 29 Anion Gap (5 - 16) 10 BUN (9 - 20 mg/dL) 22 H Creatinine (0.7 - 1.2 mg/dL) 0.9 Estimated GFR (>60 ml/min) > 60 BUN/Creatinine Ratio (7 - 25 %) 24.4 Total Bilirubin (0.2 - 1.3 mg/dL) 0.6 Direct Bilirubin (< 0.4 mg/dL) 0.2 AST (17 - 59 U/L) 22 ALT (21 - 72 U/L) 82 H Alkaline Phosphatase (< 127 U/L) 220 H Total Protein (6.3 - 8.2 g/dL) 6.3 Albumin (3.5 - 5.0 g/dL) 3.4 L Coagulation PT (9.4 - 12.5 SEC) 12.1 Cancelled INR (0.90 - 1.17) 1.15 Cancelled APTT (25 - 37 SEC) 35 61 H Hematology CBC w Diff Pending WBC Pending RBC Pending Hgb Pending Hct Pending MCV Pending MCH Pending RDW Pending Plt Count Pending MPV Pending PUBS MCHC Pending Assessment/Plan Assessment/Recommendations: Mr. Soriano is a 71-yo male with HTN, CAD s/p CABG, bioprosthetic AVR, DENA, and recent DVT/PE who presents with abdominal pain and elevated LFT. There is concerns for choledocholithiasis and plan to perform ERCP. He was diagnosed with PE and DVT in August 2016 after hospitalization, ESWL procedure, and RP hematoma. VTE was felt to be provoked. Due to the provoked and recent nature of thrombosis (<3 months), he would be at high risk for new VTE. He has underwent ERCP and is recovering well. He has no new pain. He is being bridged back to warfarin. Recommendations: 1. Heparin bridge to warfarin. Please call [phone] with any questions. Problem List: 1. S/P cholecystectomy 2. S/P ERCP 3. Bilateral pulmonary embolism
--- NOTE | 2016-10-22 14:04 | PN- General Surgery ---
Subjective Subjective: ERCP performed last saturday. eating. persistent LLQ pain and tenderness Objective Vital Signs and I&Os Vital Signs Date Time Temp Pulse Resp B/P B/P Pulse O2 O2 Flow FiO2 Mean Ox Delivery Rate 10/22 0947 73 120/78 10/22 0646 98.0 73 20 120/78 92 CPAP 10/22 0131 87 93 10/21 2239 98.0 82 20 135/85 95 Room Air 10/21 2238 135/85 10/21 1520 97.5 84 20 140/80 96 Room Air Intake & Output 10/22 1600 10/22 0800 10/22 0000 10/21 1600 10/21 0800 10/21 0000 Intake Total 179.2 187.2 450 200 358.4 Output Total 300 954 263 6373 Balance -120.8 -537.8 -370 200 -1241.6 Intake, IV 179.2 67.2 210 200 118.4 Intake, Oral 120 240 240 Output, Urine 300 [phone] Physical Exam: gen; looks well. nad. a/o heent; anicteric,mmm,eomi abd; soft, tender LLQ with minimal guarding. Current Medications: Current Medications Sig/Geri Start time Last Medication Dose Route Stop Time Status Admin Allopurinol 300 MG DAILY 10/17 1000 AC 10/22 PO 0947 Amlodipine Besylate 10 MG DAILY 10/17 1000 AC 10/22 PO 0947 Artificial Tears 2 GTT 4 TIMES/DAY 10/16 2244 AC 10/22 OPH 0947 Chlorthalidone 25 MG QAM 10/17 1000 AC 10/22 PO 0947 Dicyclomine HCl 20 MG 4 TIMES/DAY PRN 10/17 2215 AC 10/20 PO 1710 Docusate Sodium 100 MG DAILY 10/17 1000 AC 10/22 PO 0946 Ezetimibe 10 MG DAILY 10/17 1000 AC 10/22 PO 0947 Ferrous Sulfate 325 MG BID 10/17 1000 AC 10/22 PO 0946 Fluticasone 2 SPRAY DAILY 10/17 1000 AC 10/22 Propionate JEF 0946 Heparin Sodium 6,800 UNIT ONCE ONE 10/22 0930 DC 10/22 (Porcine) IV 10/22 0931 0946 Heparin Sodium 25,000 UNIT Q24H 10/20 0930 AC 10/22 (Porcine) IV 1009 Sodium Chloride 500 ML Levothyroxine Sodium 0.137 MG 0700 10/17 07 AC 10/22 PO 0727 Magnesium Hydroxide 5 ML Q12P PRN 10/16 2245 AC PO Memantine 10 MG BID 10/16 223 AC 10/22 PO 0947 Metoprolol Tartrate 75 MG BID 10/17 1000 AC 10/22 PO 0947 Morphine Sulfate 2 MG Q6-PRN PRN 10/16 2230 AC 10/20 IV 1524 Nitroglycerin 0.4 MG 0 10/21 2200 AC 10/21 TOP 2236 Nitroglycerin 0.4 MG DAILY 10/17 1000 DC 10/20 TOP 1034 Omeprazole 40 MG DAILY AC 10/17 0700 AC 10/22 PO 0727 Oxycodone HCl 5 MG Q6P PRN 10/16 223 10/21 PO 0006 Patient Medication 1 ED .STK-MED ONE 10/22 1253 DC Teaching ED 10/22 1254 Potassium Chloride 20 MEQ BID 10/21 1000 DC 10/22 PO 0947 Tamsulosin HCl 0.4 MG QPM 10/17 2199 AC 10/21 PO 2238 Tramadol HCl 50 MG Q8P PRN 10/17 0230 10/20 PO 1848 Warfarin Sodium 5 MG COUMADIN 1700 ONE 10/22 1700 AC PO 10/22 1701 Warfarin Sodium 5 MG COUMADIN 170 ONE 10/21 1700 DC 10/21 PO 10/21 1701 1753 Results Last 48 Hours of Labs: Laboratory Tests 10/22 10/22 10/21 0620 0600 1651 Chemistry Sodium (137 - 145 mmol/L) 138 Potassium (3.5 - 5.1 mmol/L) 3.7 Chloride (98 - 107 mmol/L) 99 Carbon Dioxide (22 - 30 mmol/L) 29 Anion Gap (5 - 16) 10 BUN (9 - 20 mg/dL) 22 H Creatinine (0.7 - 1.2 mg/dL) 0.9 Estimated GFR (>60 ml/min) > 60 BUN/Creatinine Ratio (7 - 25 %) 24.4 Total Bilirubin (0.2 - 1.3 mg/dL) 0.6 Direct Bilirubin (< 0.4 mg/dL) 0.2 AST (17 - 59 U/L) 22 ALT (21 - 72 U/L) 82 H Alkaline Phosphatase (< 127 U/L) 220 H Total Protein (6.3 - 8.2 g/dL) 6.3 Albumin (3.5 - 5.0 g/dL) 3.4 L Coagulation PT (9.4 - 12.5 SEC) 12.1 Cancelled INR (0.90 - 1.17) 1.15 Cancelled APTT (25 - 37 SEC) 35 61 H Hematology CBC w Diff NO MAN DIFF REQ WBC (4.8 - 10.8 /CUMM) 7.5 RBC (4.70 - 6.10 /CUMM) 5.86 Hgb (14.0 - 18.0 G/DL) 16.4 Hct (42 - 52 %) 49.1 MCV (80.0 - 94.0 FL) 83.8 MCH (27.0 - 31.0 PG) 28.0 RDW (11.5 - 14.5 %) 16.0 H Plt Count (130 - 400 /CUMM) 165 MPV (7.4 - 10.4 FL) 8.1 Gran % (42.2 - 75.2 %) 55.7 Lymphocytes % (20.5 - 51.1 %) 33.3 Monocytes % (1.7 - 9.3 %) 9.5 H Eosinophils % (0 - 5 %) 1.1 Basophils % (0.0 - 2.0 %) 0.4 Absolute Granulocytes (1.4 - 6.5 /CUMM) 4.2 Absolute Lymphocytes (1.2 - 3.4 /CUMM) 2.5 Absolute Monocytes (0.10 - 0.60 /CUMM) 0.7 H Absolute Eosinophils (0.0 - 0.7 /CUMM) 0.1 Absolute Basophils (0.0 - 0.2 /CUMM) 0 PUBS MCHC (33.0 - 37.0 G/DL) 33.5 10/21 10/21 10/21 0830 0830 0040 Chemistry Sodium (137 - 145 mmol/L) 137 Potassium (3.5 - 5.1 mmol/L) 3.3 L Chloride (98 - 107 mmol/L) 96 L Carbon Dioxide (22 - 30 mmol/L) 30 Anion Gap (5 - 16) 10 BUN (9 - 20 mg/dL) 17 Creatinine (0.7 - 1.2 mg/dL) 0.9 Estimated GFR (>60 ml/min) > 60 BUN/Creatinine Ratio (7 - 25 %) 18.9 Total Bilirubin (0.2 - 1.3 mg/dL) 0.9 Direct Bilirubin (< 0.4 mg/dL) 0.2 AST (17 - 59 U/L) 26 ALT (21 - 72 U/L) 103 H Alkaline Phosphatase (< 127 U/L) 247 H Total Protein (6.3 - 8.2 g/dL) 6.5 Albumin (3.5 - 5.0 g/dL) 3.5 Coagulation PT (9.4 - 12.5 SEC) 13.5 H INR (0.90 - 1.17) 1.29 H APTT (25 - 37 SEC) 99 H > 120 *H Hematology CBC w Diff NO MAN DIFF REQ WBC (4.8 - 10.8 /CUMM) 6.8 RBC (4.70 - 6.10 /CUMM) 5.98 Hgb (14.0 - 18.0 G/DL) 16.5 Hct (42 - 52 %) 49.4 MCV (80.0 - 94.0 FL) 82.6 MCH (27.0 - 31.0 PG) 27.7 RDW (11.5 - 14.5 %) 15.9 H Plt Count (130 - 400 /CUMM) 159 MPV (7.4 - 10.4 FL) 7.7 Gran % (42.2 - 75.2 %) 54.8 Lymphocytes % (20.5 - 51.1 %) 34.5 Monocytes % (1.7 - 9.3 %) 8.3 Eosinophils % (0 - 5 %) 1.7 Basophils % (0.0 - 2.0 %) 0.7 Absolute Granulocytes (1.4 - 6.5 /CUMM) 3.7 Absolute Lymphocytes (1.2 - 3.4 /CUMM) 2.4 Absolute Monocytes (0.10 - 0.60 /CUMM) 0.6 Absolute Eosinophils (0.0 - 0.7 /CUMM) 0.1 Absolute Basophils (0.0 - 0.2 /CUMM) 0 PUBS MCHC (33.0 - 37.0 G/DL) 33.5 05/13 1735 Coagulation APTT (25 - 37 SEC) 49 H Assessment/Plan Assessment/Plan Persistent LLQ abdominal pain. Admitting CT noted "epiploic appendigitis". This is a usually self limiting non-infectious process that originates from torsion of a portion of pericolonic fat. Given persistence of pain and tenderness, recommend repeat CT to ensure he doesn't have an progressive process such as diverticulitis.
[2016-10-22 14:41] VITALS: BP 124/80
[2016-10-22 16:38] LABS: PTT > 120 SEC (25-37)
--- NOTE | 2016-10-22 16:57 | CT SCAN REPORT ---
EXAMINATION: CT ABDOMEN AND PELVIS WITH CONTRAST CLINICAL INFORMATION: Patient continues to have left-sided abdominal pain. Evaluate for diverticulitis. COMPARISON: T scan of the abdomen and pelvis dated 10/16/2016, 08/16/2016, 07/27/2016 and multiple older exams. TECHNIQUE: Multidetector CT volumetric acquisition of the abdomen and pelvis was performed after the administration of 900 mL of oral Redicat contrast and 94 mL of intravenous Optiray 320. The data set was reformatted in the sagittal and coronal planes and reviewed on an independent workstation. DLP: 488.70 mGy-cm. FINDINGS: LOWER CHEST: Mild dependent atelectasis is seen. The patient is status post median sternotomy and aortic valve replacement. Severe coronary artery calcifications are partially included. LIVER, GALLBLADDER, BILIARY TREE: Liver normal size and attenuation. No focal cystic or solid mass or intra-or extrahepatic ductal dilatation. Hepatic and portal veins patent. The patient is status post cholecystectomy. PANCREAS: Diffusely atrophic. No ductal dilatation, mass, or surrounding stranding. SPLEEN: Normal size and appearance. Splenic vein patent. ADRENAL GLANDS AND KIDNEYS: Adrenal glands normal. As seen previously, there is a large subcapsular hematoma in the left kidney, causing mass effect upon the kidney and slight displacement medially. There appears to be slight cortical thinning of the left kidney. The complex subcapsular hematoma measures approximately 9.5 x 5.6 cm as compared to 11.1 x 6.4 cm previously. There is now decreased perinephric stranding and edema compared to the prior exam. No significant interval change is seen in the large mid right renal cortical exophytic cyst and in the other smaller left mid and lower pole renal cysts. URETERS AND BLADDER: Ureters decompressed and within normal limits. Bladder partially distended and within normal limits. PELVIC ORGANS: Unremarkable. GASTROINTESTINAL TRACT: There is a tiny fat-containing umbilical hernia. Small and large bowel loops decompressed. A few scattered sigmoid colonic diverticula are seen with no evidence of acute diverticulitis. Appendix is not identified. LYMPHOVASCULAR STRUCTURES: Abdominal aorta normal in caliber. Moderate atherosclerotic calcifications of the aorta are seen. No periaortic collections. No abdominal or pelvic adenopathy or free fluid collection. BONES: There is moderate vertebral spondylosis seen in the lower thoracic spine and in the mid and lower lumbar spine with multilevel degenerative disc disease. No suspicious bone findings. IMPRESSION: 1. Large subcapsular hematoma is seen involving the left kidney, overall slightly smaller when compared to the prior study from 07/27/2016. There is also decreasing surrounding edema and stranding. There continues to be mass effect upon the left renal parenchyma and there is likely mild thinning of the left renal cortex. 2. Other bilateral benign-appearing renal cysts are seen. 3. Sigmoid colonic diverticulosis with no evidence of acute diverticulitis. 4. Status post cholecystectomy.
[2016-10-22 23:00] VITALS: BP 132/73
[2016-10-23 01:19] LABS: PTT 82 SEC (25-37)
[2016-10-23 06:15] VITALS: BP 160/90
--- NOTE | 2016-10-23 07:13 | PN- Housestaff ---
SINTIA GARCIA,[facility] 10/23/16 0713: Subjective Follow-up For: Choledocholithiasis Epipploic Appendagitis Supratherapeutic INR with H/O of DVT/PE Subacute Subcapsular Renal Hematoma Subjective: Patient still complains of pain on the right side of the abdomen. He is aware that the CT scan done yesterday, did not show the presence of any diverticulitis. Review of Systems Constitutional: Reports: see HPI. Objective Last 24 Hrs of Vital Signs/I&O Vital Signs Date Time Temp Pulse Resp B/P B/P Pulse O2 O2 Flow FiO2 Mean Ox Delivery Rate 10/23 0615 98.0 64 20 160/90 95 CPAP 10/23 0554 169/90 10/22 2300 97.8 74 20 132/73 94 Room Air 10/22 2205 74 132/73 10/22 1441 97.8 75 20 124/80 95 Room Air 10/22 0947 73 120/78 Intake & Output 10/23 1600 10/23 0800 10/23 0000 Intake Total 480 100 Output Total 825 Balance -345 100 Intake, IV 240 Intake, Oral 240 100 Output, Urine 825 Physical Exam General Appearance: Alert, Oriented X3, Cooperative, Mild Distress Cardiovascular: Regular Rate, Normal S1, Normal S2 Lungs: Clear to Auscultation, Normal Air Movement Abdomen: Normal Bowel Sounds, Soft, Tenderness present on the left side, majorly in the LLQ. No rebound noted. Neurological: Normal Speech, Strength at 5/5 X4 Ext, Normal Tone Extremities: No Cyanosis, No Edema, Normal Pulses Current Medications: Current Medications Sig/Geri Start time Last Medication Dose Route Stop Time Status Admin Allopurinol 300 MG DAILY 10/17 999 AC 10/22 PO 0947 Amlodipine Besylate 10 MG DAILY 10/17 1000 AC 10/23 PO 0554 Artificial Tears 2 GTT 4 TIMES/DAY 10/16 2244 AC 10/22 OPH 2208 Chlorthalidone 25 MG QAM 10/17 999 AC 10/22 PO 0947 Dicyclomine HCl 20 MG 4 TIMES/DAY PRN 10/17 2215 AC 10/20 PO 1710 Docusate Sodium 100 MG DAILY 10/17 1000 AC 10/22 PO 0946 Ezetimibe 10 MG DAILY 10/17 999 AC 10/22 PO 0947 Ferrous Sulfate 325 MG BID 10/17 999 AC 10/22 PO 2206 Fluticasone 2 SPRAY DAILY 10/17 1000 AC 10/22 Propionate JEF 0946 Heparin Sodium 6,800 UNIT ONCE ONE 10/22 0930 DC 10/22 (Porcine) IV 10/22 0931 0946 Heparin Sodium 25,000 UNIT Q24H 10/20 0930 AC 10/23 (Porcine) IV 0629 Sodium Chloride 500 ML Levothyroxine Sodium 0.137 MG 0700 10/17 0700 AC 10/23 PO 0553 Magnesium Hydroxide 5 ML Q12P PRN 10/16 2245 AC PO Memantine 10 MG BID 10/16 223 AC 10/22 PO 2204 Metoprolol Tartrate 75 MG BID 10/17 1000 AC 10/22 PO 2204 Morphine Sulfate 2 MG Q6-PRN PRN 10/16 2230 AC 10/23 IV 0630 Nitroglycerin 0.4 MG 10/21 2200 AC 10/22 TOP 2206 Omeprazole 40 MG DAILY AC 10/17 0700 AC 10/23 PO 0553 Oxycodone HCl 5 MG Q6P PRN 10/16 2230 AC 10/21 PO 0006 Patient Medication 1 ED .STK-MED ONE 10/22 1253 DC Teaching ED 10/22 1254 Potassium Chloride 20 MEQ BID 10/21 1000 DC 10/22 PO 0947 Tamsulosin HCl 0.4 MG QPM 10/17 2199 AC 10/22 PO 2205 Tramadol HCl 50 MG Q8P PRN 10/17 0230 AC 10/20 PO 1848 Warfarin Sodium 5 MG COUMADIN 1700 ONE 10/22 1700 DC 10/22 PO 10/22 1701 1907 Last 24 Hrs of Lab/Gregory Results Last 24 Hrs of Labs/Mics: Laboratory Tests 10/22/16 2340: APTT 82 H 10/22/16 2200: APTT Cancelled 10/22/16 1535: APTT > 120 *H Lines/Diet/Fluids Lines: peripheral lines Assessment/Plan Assessment: 71 y/o M qith PMH of HTN, CAD s/p stent and 2 vessel CABG, bioprosthetic AVR, DENA on CPAP, HTN and recent hospitalization for subcapsular and RP hematoma s/p ESWL, now on Coumadin for DVT, who presents to the ED with abnormal LFT's noted by his PCP. He did experience some epigastric and RUQ pain. CTA A/P showed thr presence of choledocholithiasis with no biliary duct dilation and torsed epiploic appendagitis. Trops x 3 were negative. Problem List: 1) Choledocholithiasis with elevated LFT's 2) CTA A/P showing epiploic appendagitis. Repeat CT scan did not show any diverticulitis. 3) H/O CAD s/p CABG with recent stress test showing the presence of small region of ischemia in the inferior wall. 4) Bioprosthetic AVR 5) H/O DVT/PE on Coumadin 5) DENA on CPAP 6) HTN Plan: * Monitor on GM * Patient has been seen by GI, ERCP done on 10/19 with removal of one CBD stone. He developed some bleeding afterwards. Heparin was held for 12 hours and then restarted. INR today is pending. Continue bridging till the patient becomes therapeutic. * Repeat CT of the abdomen for persistent pain did not reveal the presence of any diverticulitis. Pain is possibly secondary to the mass effect caused by the hematoma itself. * Appreciate GI and Hematology recs. * Continue other home medications for now. * Pain Management: Currently on Morphine 2 mg Q6PRN IV and Roxicodone 5 mg Q6P. Well controlled. continue for now. * DVT PPx: Heparin gtt * Code Status: Full Code. Problem List: 1. Choledocholithiasis Pain Ratin Pain Location: LLQ Pain Goal: Pain 4 or less Pain Plan: Per EMR Tomorrow's Labs & Rationales: INR DVT/Prophylaxis: pharmacological Consulting Request: Consulting Specialty: Gastroenterology Consulting Physician[facility] 1243: Attending MD Review Statement Attending Statement Attending MD Statement: examined this patient, discuss w/resident/PA/ATTORNEY AT [employer], agreed w/resident/PA/ATTORNEY AT LAW, reviewed EMR data (avail) Attending Assessment/Plan: 71M PMH HTN, CAD s/p stent and 2 vessel CABG, bioprosthetic AVR, DENA on CPAP, HTN and recent hospitalization for subcapsular and RP hematoma s/p ESWL, now on Coumadin for DVT admitted for severe abdominal pain with choledocholithiasis on imaging with transaminitis. Patient reports pain is improved but still present. Afebrile, normal WBC, no evidence of cholangitis. ERCP performed 10/19, stone removed with sphincterotomy. CT abdomen done yesterday for persistent left sided abdominal pain showed improvement in capsular hematoma and no evidence of further infection or inflammation. INR not yet therapeutic. 1. Choledocholithiasis 2. Transaminitis 3. Bioprosthetic aortic valve replacement 4. History of DVT 5. History of CAD Plan - Continue on general medicine - Continue Coumadin and daily INR - Follow GI and surgery recommendations - Continue home medications - DVT PPx
[2016-10-23 08:52] LABS: PT 13.5 SEC (9.4-12.5)
[2016-10-23 12:42] LABS: PTT 108 SEC (25-37)
[2016-10-23 15:07] VITALS: BP 136/82
[2016-10-23 20:46] LABS: PTT 72 SEC (25-37)
[2016-10-23 22:26] VITALS: BP 144/80
[2016-10-24 07:03] VITALS: BP 120/76
--- NOTE | 2016-10-24 07:28 | PN- Housestaff ---
SINTIA GARCIA,[facility] 10/24/16 0727: Subjective Follow-up For: Choledocholithiasis s/p ERCP and stone removal Epipploic Appendagitis Supratherapeutic INR with H/O of DVT/PE Subacute Subcapsular Renal Hematoma Subjective: Patient states that he had another attack of 'kidney pain' early this morning, for which he took morphine. This relieved the pain for a little while, after which it came back. He is unsure if he wants to take dilaudid as he does not want anything too strong. Review of Systems Constitutional: Reports: see HPI. Objective Last 24 Hrs of Vital Signs/I&O Vital Signs Date Time Temp Pulse Resp B/P B/P Pulse O2 O2 Flow FiO2 Mean Ox Delivery Rate 10/24 0703 98.1 60 20 120/76 94 Room Air 10/24 0014 69 92 10/23 2300 68 95 10/23 2226 98.3 71 20 144/80 93 Room Air 10/23 2157 70 144/80 10/23 1507 98.2 65 20 136/82 93 Room Air Intake & Output 10/24 1600 10/24 0800 10/24 0000 Intake Total 500 980 Output Total 310 Balance 190 980 Intake, IV 180 180 Intake, Oral 320 800 Output, Urine 310 Physical Exam General Appearance: Alert, Oriented X3, Cooperative, No Acute Distress Cardiovascular: Regular Rate, Normal S1, Normal S2, murmur of heard. Lungs: Clear to Auscultation, Normal Air Movement Abdomen: tenderness present in the LLQ. Some guarding noted. Neurological: Normal Speech, Strength at 5/5 X4 Ext, Normal Tone, Sensation Intact Extremities: No Edema Current Medications: Current Medications Sig/Geri Start time Last Medication Dose Route Stop Time Status Admin Allopurinol 300 MG DAILY 10/17 1000 AC 10/23 PO 0949 Amlodipine Besylate 10 MG DAILY 10/17 1000 AC 10/23 PO 0554 Artificial Tears 2 GTT 4 TIMES/DAY 10/16 2244 AC 10/23 OPH 2157 Chlorthalidone 25 MG QAM 10/17 1000 AC 10/23 PO 0948 Dicyclomine HCl 20 MG 4 TIMES/DAY PRN 10/17 2215 AC 10/20 PO 1710 Docusate Sodium 100 MG DAILY 10/17 1000 AC 10/23 PO 0948 Ezetimibe 10 MG DAILY 10/17 1000 AC 10/23 PO 0949 Ferrous Sulfate 325 MG BID 10/17 1000 AC 10/23 PO 2157 Fluticasone 2 SPRAY DAILY 10/17 1000 AC 10/23 Propionate JEF 0951 Heparin Sodium 25,000 UNIT Q24H 10/20 0930 AC 10/24 (Porcine) IV 0432 Sodium Chloride 500 ML Levothyroxine Sodium 0.137 MG 0700 10/17 0700 AC 10/24 PO 0621 Magnesium Hydroxide 5 ML Q12P PRN 10/16 2245 AC PO Memantine 10 MG BID 10/16 223 AC 10/23 PO 215 Metoprolol Tartrate 75 MG BID 10/17 1000 AC 10/23 PO 2157 Morphine Sulfate 2 MG Q6-PRN PRN 10/16 223 AC 10/24 IV 0140 Nitroglycerin 0.4 MG 10/21 2200 AC 10/23 TOP 215 Omeprazole 40 MG DAILY AC 10/17 0700 AC 10/24 PO 0621 Oxycodone HCl 5 MG Q6P PRN 10/16 2230 AC 10/21 PO 0006 Potassium Chloride 40 MEQ ONCE ONE 10/23 1415 DC 10/23 PO 10/23 1416 1452 Tamsulosin HCl 0.4 MG QPM 10/17 2200 AC 10/23 PO 2157 Tramadol HCl 50 MG Q8P PRN 10/17 0230 AC 10/20 PO 1848 Warfarin Sodium 5 MG COUMADIN 1700 ONE 10/23 1700 DC 10/23 PO 10/23 1701 1716 Last 24 Hrs of Lab/Gregory Results Last 24 Hrs of Labs/Mics: Laboratory Tests 10/24/16 0632: PT Pending, INR Pending 10/24/16 0632: Anion Gap 9, Estimated GFR Pending, BUN/Creatinine Ratio 22.5, APTT Pending 10/23/16 1911: APTT 72 H 10/23/16 1121: APTT 108 *H 10/23/16 0809: Anion Gap 10, Estimated GFR > 60, BUN/Creatinine Ratio 23.8, Total Bilirubin 0.6 , Direct Bilirubin 0.2, AST 26, ALT 75 H, Alkaline Phosphatase 215 H, Total Protein 6.4, Albumin 3.5, PT 13.5 H, INR 1.29 H Lines/Diet/Fluids Lines: peripheral lines Assessment/Plan Assessment: 71 y/o M qith PMH of HTN, CAD s/p stent and 2 vessel CABG, bioprosthetic AVR, DENA on CPAP, HTN and recent hospitalization for subcapsular and RP hematoma s/p ESWL, now on Coumadin for DVT, who presents to the ED with abnormal LFT's noted by his PCP. He did experience some epigastric and RUQ pain. CTA A/P showed thr presence of choledocholithiasis with no biliary duct dilation and torsed epiploic appendagitis. Trops x 3 were negative. Problem List: 1) Choledocholithiasis with elevated LFT's s/p ERCP and removal of single stone 2) CTA A/P showing epiploic appendagitis. Repeat CT scan did not show any diverticulitis. No active interventions for now. 3) H/O CAD s/p CABG with recent stress test showing the presence of small region of ischemia in the inferior wall. Cardiology following. 4) Bioprosthetic AVR 5) H/O DVT/PE on Coumadin 5) DENA on CPAP 6) HTN 7) Subacute renal subcapsular hematoma on the left side, with persistent pain. Plan: * Monitor on GM * Patient has been seen by GI, ERCP done on 10/19 with removal of one CBD stone. He developed some bleeding afterwards. Heparin was held for 12 hours and then restarted. INR today is pending. Continue bridging till the patient becomes therapeutic. INR yesterday was 1.5. INR today is pending. * Repeat CT of the abdomen for persistent pain did not reveal the presence of any diverticulitis. Pain is possibly secondary to the mass effect caused by the hematoma itself and stretching of the renal capsule. * Appreciate GI and Hematology recs. * Continue other home medications for now. * Pain Management: Currently on Morphine 2 mg Q6PRN IV and Roxicodone 5 mg Q6P. Can change morphine to dilaudid, if pain continues to increase. * DVT PPx: Heparin gtt and coumadin for bridging. INR this AM is pending. * Close monitoring of INR as this patient is hi risk for both bleeding and coagulation, considering his DVT/PE and his current hematoma. Will consider discharge once his INR is within therapeutic range. * Code Status: Full Code. Problem List: 1. Choledocholithiasis Pain Ratin Pain Location: LLQ Pain Goal: Pain 4 or less Pain Plan: Per EMR Tomorrow's Labs & Rationales: INR needed DVT/Prophylaxis: pharmacological Consulting Request: Consulting Specialty: Gastroenterology Consulting Physician: Dr. Luis KNOWLES MD,[facility] 10/24/16 1734: Attending MD Review Statement Attending Statement Attending MD Statement: examined this patient, discuss w/resident/PA/PRODUCTION INSPECTOR, agreed w/resident/PA/PRODUCTION INSPECTOR, reviewed EMR data (avail)
[2016-10-24 08:33] LABS: PTT 75 SEC (25-37)
[2016-10-24 08:35] LABS: PT 15.7 SEC (9.4-12.5)
[2016-10-24 14:33] VITALS: BP 132/70
[2016-10-24 22:19] LABS: PTT 87 SEC (25-37)
[2016-10-24 22:44] VITALS: BP 136/78
[2016-10-25 07:31] VITALS: BP 116/78
--- NOTE | 2016-10-25 07:55 | PN- Housestaff ---
SINTIA GARCIA,KENIA 10/25/16 0752: Subjective Follow-up For: Choledocholithiasis s/p cholecystectomy DVT on coumadin, currently being bridged Review of Systems Constitutional: Reports: see HPI. Objective Last 24 Hrs of Vital Signs/I&O Vital Signs Date Time Temp Pulse Resp B/P B/P Pulse O2 O2 Flow FiO2 Mean Ox Delivery Rate 10/25 0731 97.9 81 18 116/78 93 Room Air 10/25 0012 78 93 10/24 2244 98.8 68 20 136/78 95 Room Air 10/24 1433 98.4 68 20 132/70 93 Room Air 10/24 0944 60 120/76 Intake & Output 10/25 0800 10/25 0000 10/24 1600 Intake Total 500 1000 980 Output Total 1300 Balance -800 1000 980 Intake, IV 180 Intake, Oral 500 1000 800 Output, Urine 1300 Physical Exam General Appearance: Alert, Oriented X3, Cooperative, No Acute Distress Cardiovascular: Regular Rate, Normal S1, Normal S2 Lungs: Clear to Auscultation, Normal Air Movement Abdomen: Normal Bowel Sounds, Soft, left sided abdominal pain and tenderness, some guarding noted Neurological: Normal Speech, Strength at 5/5 X4 Ext, Normal Tone, Sensation Intact Extremities: No Edema Current Medications: Current Medications Sig/Geri Start time Last Medication Dose Route Stop Time Status Admin Allopurinol 300 MG DAILY 10/17 1000 AC 10/24 PO 0944 Amlodipine Besylate 10 MG DAILY 10/17 1000 AC 10/24 PO 0944 Artificial Tears 2 GTT 4 TIMES/DAY 10/16 2244 AC 10/24 OPH 2119 Chlorthalidone 25 MG QAM 10/17 1000 AC 10/24 PO 0944 Dicyclomine HCl 20 MG 4 TIMES/DAY PRN 10/17 2215 AC 10/20 PO 1710 Docusate Sodium 100 MG DAILY 10/17 1000 AC 10/24 PO 0944 Ezetimibe 10 MG DAILY 10/17 1000 AC 10/24 PO 0944 Ferrous Sulfate 325 MG BID 10/17 1000 AC 10/24 PO 211 Fluticasone 2 SPRAY DAILY 10/17 1000 AC 10/24 Propionate JEF 0944 Heparin Sodium 25,000 UNIT Q24H 10/20 0930 AC 10/25 (Porcine) IV 0250 Sodium Chloride 500 ML Levothyroxine Sodium 0.137 MG 0700 05/10 0700 AC 10/25 PO 0604 Magnesium Hydroxide 5 ML Q12P PRN 10/16 2245 AC PO Memantine 10 MG BID 10/16 2231 AC 10/24 PO 211 Metoprolol Tartrate 75 MG BID 10/17 1000 AC 10/24 PO 211 Morphine Sulfate 2 MG Q6-PRN PRN 10/16 2230 AC 10/24 IV 0140 Nitroglycerin 0.4 MG 2200 10/21 2200 AC 10/24 TOP 2117 Omeprazole 40 MG DAILY AC 10/17 0700 10/25 PO 0604 Oxycodone HCl 5 MG Q6P PRN 10/16 2230 AC 10/21 PO 0006 Patient Medication 1 ED .STK-MED ONE 10/24 1355 DC Teaching ED 10/24 1356 Tamsulosin HCl 0.4 MG QPM 10/17 2199 10/24 PO 2118 Tramadol HCl 50 MG Q8P PRN 10/17 0230 10/20 PO 1848 Warfarin Sodium 5 MG COUMADIN 1700 ONE 10/24 1700 IA 10/24 PO 10/24 1701 1835 Last 24 Hrs of Lab/Gregory Results Last 24 Hrs of Labs/Mics: Laboratory Tests 10/24/165: APTT 87 H Lines/Diet/Fluids Lines: peripheral lines Assessment/Plan Assessment: 71 y/o M qith PMH of HTN, CAD s/p stent and 2 vessel CABG, bioprosthetic AVR, DENA on CPAP, HTN and recent hospitalization for subcapsular and RP hematoma s/p ESWL, now on Coumadin for DVT, who presents to the ED with abnormal LFT's noted by his PCP. He did experience some epigastric and RUQ pain. CTA A/P showed thr presence of choledocholithiasis with no biliary duct dilation and torsed epiploic appendagitis. Trops x 3 were negative. Problem List: 1) Choledocholithiasis with elevated LFT's s/p ERCP and removal of single stone 2) CTA A/P showing epiploic appendagitis. Repeat CT scan did not show any diverticulitis. No active interventions for now. 3) H/O CAD s/p CABG with recent stress test showing the presence of small region of ischemia in the inferior wall. Cardiology following. 4) Bioprosthetic AVR 5) H/O DVT/PE on Coumadin 5) DENA on CPAP 6) HTN 7) Subacute renal subcapsular hematoma on the left side, with persistent pain. Plan: * Monitor on GM * Patient has been seen by GI, ERCP done on 10/19 with removal of one CBD stone. He developed some bleeding afterwards. Heparin was held for 12 hours and then restarted. INR today is pending. Continue bridging till the patient becomes therapeutic. INR yesterday was 1.5. INR today is pending. * Repeat CT of the abdomen for persistent pain did not reveal the presence of any diverticulitis. Pain is possibly secondary to the mass effect caused by the hematoma itself and stretching of the renal capsule. * Appreciate GI and Hematology recs. * Continue other home medications for now. * Pain Management: Currently on Morphine 2 mg Q6PRN IV and Roxicodone 5 mg Q6P. Can change morphine to dilaudid, if pain continues to increase. * DVT PPx: Heparin gtt and coumadin for bridging. INR this AM is pending. * Close monitoring of INR as this patient is hi risk for both bleeding and coagulation, considering his DVT/PE and his current hematoma. Will consider discharge once his INR is within therapeutic range. * Code Status: Full Code. Problem List: 1. Choledocholithiasis Pain Ratin Pain Location: Left side of the abdomen Pain Goal: Pain 4 or less Pain Plan: Per EMR Tomorrow's Labs & Rationales: INR DVT/Prophylaxis: pharmacological Consulting Request: Consulting Specialty: Gastroenterology Consulting Physician: Dr. Luis KNOWLES MD,[facility] 10/25/16 1123: Attending MD Review Statement Attending Statement Attending MD Statement: examined this patient, discuss w/resident/PA/GROMMET MACHINE OPERATOR, agreed w/resident/PA/GROMMET MACHINE OPERATOR, reviewed EMR data (avail) Attending Assessment/Plan: 71M PMH HTN, CAD s/p stent and 2 vessel CABG, bioprosthetic AVR, DENA on CPAP, HTN and recent hospitalization for subcapsular and RP hematoma s/p ESWL, now on Coumadin for DVT admitted for severe abdominal pain with choledocholithiasis on imaging with transaminitis. ERCP performed 10/19, stone removed with sphincterotomy. CT abdomen done for persistent left sided abdominal pain showed improvement in capsular hematoma and no evidence of further infection or inflammation. INR not yet therapeutic. Pain is improved today. Required Morphine for left sided abdominal pain most likely related to subcapsular hematoma, but none required in the last 24 hours. 1. Choledocholithiasis 2. Transaminitis 3. Bioprosthetic aortic valve replacement 4. History of DVT 5. History of CAD Plan - Continue on general medicine - Continue Coumadin and daily INR - Follow GI and surgery recommendations - Continue home medications - DVT PPx - Anticipated discharge tomorrow pending therapeutic INR. Please send CMR for review.
[2016-10-25 10:16] LABS: PTT 99 SEC (25-37)
[2016-10-25 11:16] LABS: PT 18.2 SEC (9.4-12.5)
[2016-10-25 15:29] VITALS: BP 126/78
[2016-10-25 16:54] LABS: PTT 57 SEC (25-37)
[2016-10-25 22:41] VITALS: BP 142/80
[2016-10-26 00:22] LABS: PTT 64 SEC (25-37)
[2016-10-26 06:13] VITALS: BP 122/82
[2016-10-26 07:45] LABS: ABSOLUTE BASOPHIL COUNT 0 /CUMM (0.0-0.2); ABSOLUTE EOSINOPHIL COUNT 0.1 /CUMM (0.0-0.7); ABSOLUTE GRANULOCYTE CT 3.5 /CUMM (1.4-6.5); ABSOLUTE LYMPH COUNT 2.8 /CUMM (1.2-3.4); ABSOLUTE MONOCYTE COUNT 0.7 /CUMM (0.10-0.60); BASOPHIL % 0.6 % (0.0-2.0); EOSINOPHIL % 1.4 % (0-5); GRANULOCYTE % 49.1 % (42.2-75.2); HEMATOCRIT 50.6 % (42-52); MEAN CORPUSCULAR HGB CONC 33.8 G/DL (33.0-37.0); MEAN PLATELET VOLUME 7.7 FL (7.4-10.4); PLATELET COUNT 182 /CUMM (130-400); WHITE BLOOD CELL COUNT 7.2 /CUMM (4.8-10.8)
[2016-10-26 08:20] LABS: PT 20.4 SEC (9.4-12.5)
--- NOTE | 2016-10-26 08:29 | PN- Housestaff ---
SINTIA GARCIA,KENIA 10/26/16 0829: Subjective Follow-up For: Choledocholithiasis Subjective: Patient has no complaints this AM. He is aware of discharge. Review of Systems Constitutional: Reports: see HPI. Objective Last 24 Hrs of Vital Signs/I&O Vital Signs Date Time Temp Pulse Resp B/P B/P Pulse O2 O2 Flow FiO2 Mean Ox Delivery Rate 10/26 0613 98.3 70 18 122/82 95 Room Air 10/26 0058 78 92 10/26 0000 93 CPAP 10/25 2241 97.8 65 19 142/80 93 Room Air 10/25 2056 69 140/80 10/25 1529 98.1 66 20 126/78 95 Room Air Intake & Output 10/26 1600 10/26 0800 10/26 0000 Intake Total 300 330 Output Total 300 350 Balance 0 -20 Intake, IV 180 90 Intake, Oral 120 240 Number 0 0 Bowel Movements Output, Urine 300 350 Physical Exam General Appearance: Alert, Oriented X3, Cooperative, No Acute Distress Cardiovascular: Regular Rate, Normal S1, Normal S2 Lungs: Clear to Auscultation, Normal Air Movement Abdomen: Normal Bowel Sounds, Soft, Tenderness present on the left side of the abdomen with some guarding. Neurological: Normal Speech, Strength at 5/5 X4 Ext, Normal Tone, Sensation Intact Extremities: No Edema Current Medications: Current Medications Sig/Geri Start time Last Medication Dose Route Stop Time Status Admin Allopurinol 300 MG DAILY 10/17 999 AC 10/26 PO 0925 Amlodipine Besylate 10 MG DAILY 10/17 1000 AC 10/26 PO 09 Artificial Tears 2 GTT 4 TIMES/DAY 10/16 2244 AC 10/26 OPH 0926 Chlorthalidone 25 MG QAM 10/17 1000 AC 10/26 PO 09 Dicyclomine HCl 20 MG 4 TIMES/DAY PRN 10/17 2215 AC 10/20 PO 1710 Docusate Sodium 100 MG DAILY 10/17 999 AC 10/26 PO 09 Ezetimibe 10 MG DAILY 10/17 999 AC 10/26 PO 0925 Ferrous Sulfate 325 MG BID 10/17 1000 AC 10/26 PO 09 Fluticasone 2 SPRAY DAILY 10/17 1000 AC 10/26 Propionate JEF 0926 Heparin Sodium 25,000 UNIT Q24H 10/20 0930 DC 10/26 (Porcine) IV 0458 Sodium Chloride 500 ML Levothyroxine Sodium 0.137 MG 0700 10/17 0700 AC 10/26 PO 0642 Magnesium Hydroxide 5 ML Q12P PRN 10/16 2245 AC PO Memantine 10 MG BID 10/16 223 AC 10/26 PO 0925 Metoprolol Tartrate 75 MG BID 10/17 1000 AC 10/26 PO 0925 Morphine Sulfate 2 MG Q6-PRN PRN 10/16 2230 AC 10/24 IV 0140 Nitroglycerin 0.4 MG 10/21 10/25 TOP 205 Omeprazole 40 MG DAILY AC 10/17 07 AC 10/26 PO 0642 Oxycodone HCl 5 MG Q6P PRN 10/16 2229 AC 10/21 PO 0006 Patient Medication 1 ED ONE ONE 10/26 1415 DC Teaching ED 10/26 1416 Tamsulosin HCl 0.4 MG QPM 10/17 2199 AC 10/25 PO 205 Tramadol HCl 50 MG Q8P PRN 10/17 0230 AC 10/20 PO 1848 Warfarin Sodium 5 MG ONCE ONE 10/26 1200 DC PO 10/26 1201 Warfarin Sodium 5 MG COUMADIN 1700 ONE 10/25 1700 DC 10/25 PO 10/25 1701 1750 Last 24 Hrs of Lab/Gregory Results Last 24 Hrs of Labs/Mics: Laboratory Tests 10/26/16 0616: PT 20.4 H, INR 1.96 H, CBC w Diff NO MAN DIFF REQ, RBC 6.10, MCV 83.0, MCH 28.0, RDW 16.0 H, MPV 7.7, Gran % 49.1, Lymphocytes % 38.7, Monocytes % 10.2 H , Eosinophils % 1.4, Basophils % 0.6, Absolute Granulocytes 3.5, Absolute Lymphocytes 2.8, Absolute Monocytes 0.7 H, Absolute Eosinophils 0.1, Absolute Basophils 0, PUBS MCHC 33.8 10/25/16 2322: APTT 64 H 10/25/16 1615: APTT 57 H Lines/Diet/Fluids Lines: peripheral lines Assessment/Plan Assessment: 71 y/o M qith PMH of HTN, CAD s/p stent and 2 vessel CABG, bioprosthetic AVR, DENA on CPAP, HTN and recent hospitalization for subcapsular and RP hematoma s/p ESWL, now on Coumadin for DVT, who presents to the ED with abnormal LFT's noted by his PCP. He did experience some epigastric and RUQ pain. CTA A/P showed thr presence of choledocholithiasis with no biliary duct dilation and torsed epiploic appendagitis. Trops x 3 were negative. Problem List: 1) Choledocholithiasis with elevated LFT's s/p ERCP and removal of single stone 2) CTA A/P showing epiploic appendagitis. Repeat CT scan did not show any diverticulitis. No active interventions for now. 3) H/O CAD s/p CABG with recent stress test showing the presence of small region of ischemia in the inferior wall. Cardiology following. 4) Bioprosthetic AVR 5) H/O DVT/PE on Coumadin 5) DENA on CPAP 6) HTN 7) Subacute renal subcapsular hematoma on the left side, with persistent pain. Plan: * Patient has been seen by GI, ERCP done on 10/19 with removal of one CBD stone. He developed some bleeding afterwards. Heparin was held for 12 hours and then restarted. INR today is pending. Continue bridging till the patient becomes therapeutic. INR today in 1.96. Plan is to discharge the patient home with recheck of INR on 10/29 and repeat checks every week. * Repeat CT of the abdomen for persistent pain did not reveal the presence of any diverticulitis. Pain is possibly secondary to the mass effect caused by the hematoma itself and stretching of the renal capsule. * Appreciate GI and Hematology recs. * Continue other home medications for now. * Pain Management: Currently on Morphine 2 mg Q6PRN IV and Roxicodone 5 mg Q6P. Can change morphine to dilaudid, if pain continues to increase. * DVT PPx: Coumadin * Code Status: Full Code. Patient is to be discharged today. He will be sent home on 5 mg of Coumadin and to check his INR on 10/29. He has also been instructed to stop his statin in view of his elevated LFT's at the time of admission. Problem List: 1. Choledocholithiasis Pain Ratin Pain Location: Left side of the abdomen Pain Goal: Pain 4 or less Pain Plan: Per EMR Tomorrow's Labs & Rationales: None needed as the patient is to be discharged today. DVT/Prophylaxis: pharmacological Consulting Request: Consulting Specialty: Gastroenterology Consulting Physician: Dr. Luis KNOWLES MD,[facility] 10/26/16 1001: Attending MD Review Statement Attending Statement Attending MD Statement: examined this patient, discuss w/resident/PA/TIRE TESTER, agreed w/resident/PA/TIRE TESTER, reviewed EMR data (avail) Attending Assessment/Plan: 71M PMH HTN, CAD s/p stent and 2 vessel CABG, bioprosthetic AVR, DENA on CPAP, HTN and recent hospitalization for subcapsular and RP hematoma s/p ESWL, now on Coumadin for DVT admitted for severe abdominal pain with choledocholithiasis on imaging with transaminitis. ERCP performed 10/19, stone removed with sphincterotomy. CT abdomen done for persistent left sided abdominal pain showed improvement in capsular hematoma and no evidence of further infection or inflammation. 1. Choledocholithiasis 2. Transaminitis 3. Bioprosthetic aortic valve replacement 4. History of DVT 5. History of CAD Plan - Stable for discharge home - Continue Coumadin and follow up in Coumadin clinic, will need tight control of INR between 2 and 3 given recency of DVT and subcapsular renal hematoma - Outpatient GI and PCP follow up - Continue home medications - Tylenol and Tramadol for pain
--- NOTE | 2016-10-26 11:08 | Patient Discharge Instructions ---
Discharge Instructions General Discharge Information You were seen/treated for: Stone in the bile duct Special Instructions: Please make an appointment to see the doctors in the referral section. Please check INR Sunday 10/29 and then weekly as an outpatient and determine the dose of coumadin accordingly. Please stop using the statin, because you have elevated liver function tests at the time of admission. Please consult your PCP before restarting this medication. Diet Recommended Diet: Heart Healthy Activity Activity Self Limited: Yes Acute Coronary Syndrome Inclusion Criteria At DC or during hospital stay patient has or had the following: ACS DIAGNOSIS No Discharge Core Measures Meds if any: Prescribed or Continued at Discharge Meds if any: NOT Prescribed or Continued at Discharge Congestive Heart Failure Inclusion Criteria At DC or during hospital stay patient has or had the following: CHF DIAGNOSIS No Discharge Core Measures Meds if any: Prescribed or Continued at Discharge Meds if any: NOT Prescribed or Continued at Discharge Cerebrovascular accident Inclusion Criteria At DC or during hospital stay patient has or had the following: CVA/TIA Diagnosis No Discharge Core Measures Meds if any: Prescribed or Continued at Discharge Meds if any: NOT Prescribed or Continued at Discharge Venous thromboembolism Inclusion Criteria VTE Diagnosis No VTE Type NONE VTE Confirmed by (Test) NONE Discharge Core Measures - Per Current guidelines, there needs to be overlap - treatment for the first 5 days of Warfarin therapy. - If discharged on Warfarin prior to 5 days of - overlap therapy, the patient will need to be - assessed for post discharge needs including - *Post discharge parental anticoagulation - *Warfarin and/or parental anticoagulation education - *Follow up date to check INR post discharge At least 5 days overlap therapy as Inpatient No Meds if any: Prescribed or Continued at Discharge Note: Overlap Therapy is Warfarin and Anticoagulant Meds if any: NOT Prescribed or Continued at Discharge
[2016-10-26 14:23] VITALS: BP 130/80
== END 2016-10-26 15:30 | disposition home health service (06) | DRG 445 ==
LOC: DELPENDDIS → ERH 14:32 → 2NB 19:24 → ERHI 19:24 → EDBEDREQ 22:50 → ERHI 22:54 → ENRESERV 23:12 → CANRESERV 23:12 → ERHI 10-17 07:35 → ENRESERV 10-17 12:12 → CMPBEDREQ 10-17 12:51 → 2NB 10-17 13:07 → ENPENDDIS 10-25 13:57 → 2NB 10-26 15:30
PROVIDERS: Dermatology; Emergency Medicine; Internal Medicine; Internal Medicine Cardiovascular Disease; Radiology Diagnostic Radiology; ADMIT Student in an Organized Health Care Education/Training Program
PROC: 0FC98ZZ Extirpation of Matter from Common Bile Duct, Via Natural or Artificial Opening Endoscopic (ICD-10-PCS; principal; 2016-10-19)
PROC: 5A09357 Assistance with Respiratory Ventilation, Less than 24 Consecutive Hours, Continuous Positive Airway Pressure (ICD-10-PCS; 2016-10-20)
DX: K80.50 Calculus of bile duct without cholangitis or cholecystitis without obstruction (principal); N99.840 Postprocedural hematoma of a genitourinary system organ or structure following a genitourinary system procedure; B18.2 Chronic viral hepatitis C; I25.10 Atherosclerotic heart disease of native coronary artery without angina pectoris; E78.5 Hyperlipidemia, unspecified; I25.2 Old myocardial infarction; I73.9 Peripheral vascular disease, unspecified; G47.33 Obstructive sleep apnea (adult) (pediatric); E87.6 Hypokalemia; K21.9 Gastro-esophageal reflux disease without esophagitis; K63.89 Other specified diseases of intestine; M10.9 Gout, unspecified; E66.9 Obesity, unspecified; Z86.718 Personal history of other venous thrombosis and embolism; Z68.30 Body mass index [BMI] 30.0-30.9, adult; Z86.711 Personal history of pulmonary embolism; Z95.3 Presence of xenogenic heart valve; Z95.1 Presence of aortocoronary bypass graft
CPT/HCPCS: 2NBSP; 83520; ERO; 36415; 74174; 74177; 80307; 81003; 82355; 82436; 86803; 87389; 93005; 93010; J1100; J1644; J2405; Q9967